=== PATIENT | female | born 1945 | race Caucasian/White ===

== ENCOUNTER 2019-07-13 14:34 | Inpatient (IN) | payer MEDICARE ==
[2019-07-13] MEDS ORDERED: SODIUM CHLORIDE 0.9% 500 ML 500 ML IV STA (14:58)
[2019-07-13] MEDS ORDERED: IPRATROPIUM-ALBUTEROL 3 ML NEB INHALATION STA (15:01)
--- NOTE | 2019-07-13 15:02 | ED ---
General Adult HPI - General Source: patient, RN notes reviewed Mode of arrival: wheelchair Limitations: no limitations <Zan Alexandre - Last Filed: 07/13/19 17:01> <Hebert Montoya - Last Filed: 07/13/19 17:26> - General Chief complaint: Shortness of Breath Stated complaint: SOB Time Seen by Provider: 07/13/19 14:51 - History of Present Illness Initial comments: This a 73-year-old female presents emergency Department chief complaint of fatigue, shortness of breath. Patient states she just has no energy to get up and move around. She states that she feels short of breath at that time. Patient states at rest she does not feel short of breath she does have underlying COPD. Patient denies any current nausea, vomiting, diarrhea constipation. Denies any melena hematochezia. Patient denies any chest pain, h eadache. Patient states she walked to the bathroom and states that she was so fatigued she could not get up. Patient family has noticed that she is very weak (Zan Alexandre) - Related Data Allergies Allergy/AdvReac Type Severity Reaction Status Date / Time No Known Allergies Allergy Verified 07/13/19 14:48 Review of Systems ROS Other: All systems not noted in ROS Statement are negative. <Zan Alexandre - Last Filed: 07/13/19 17:01> ROS Other: All systems not noted in ROS Statement are negative. <Hebert Montoya - Last Filed: 07/13/19 17:26> ROS Statement: Those systems with pertinent positive or pertinent negative responses have been documented in the HPI. Past Medical History Past Medical History: COPD History of Any Multi-Drug Resistant Organisms: None Reported Additional Past Surgical History / Comment(s): part of right lung removed Past Psychological History: No Psychological Hx Reported Smoking Status: Never smoker Past Alcohol Use History: Occasional Past Drug Use History: None Reported <Zan Alexandre - Last Filed: 07/13/19 17:01> General Exam Limitations: no limitations General appearance: alert, in no apparent distress Head exam: Present: atraumatic, normocephalic, normal inspection Eye exam: Present: normal appearance, PERRL, EOMI. Absent: scleral icterus, conjunctival injection, periorbital swelling ENT exam: Present: normal exam, normal oropharynx, mucous membranes moist Neck exam: Present: normal inspection, full ROM. Absent: tenderness, meningismus, lymphadenopathy Respiratory exam: Present: normal lung sounds bilaterally. Absent: respiratory distress, wheezes, rales, rhonchi, stridor Cardiovascular Exam: Present: normal rhythm, tachycardia, normal heart sounds. Absent: systolic murmur, diastolic murmur, rubs, gallop, clicks GI/Abdominal exam: Present: soft, normal bowel sounds. Absent: distended, tende rness, guarding, rebound, rigid Neurological exam: Present: alert, oriented X3, CN II-XII intact Skin exam: Present: warm, dry, intact, normal color. Absent: rash <Zan Alexandre - Last Filed: 07/13/19 17:01> Course <Hebert Montoya - Last Filed: 07/13/19 17:26> Vital Signs 07/13/19 07/13/19 07/13/19 14:44 15:48 15:50 Temperature 98 F Pulse Rate 104 H 82 Respiratory 22 24 Rate Blood Pressure 106/59 O2 Sat by Pulse 77 L Oximetry 07/13/19 07/13/19 16:02 16:03 Temperature Pulse Rate 71 80 Respiratory 18 Rate Blood Pressure 122/91 O2 Sat by Pulse 100 Oximetry - Reevaluation(s) Reevaluation #1: 07/13/19 17:26 PA supervision: I proceeded [id number] evaluation the patient. She does present with complaints of shortness of breath he does demonstrate markedly diminished breath sounds. After treatment she did not recover well. She did demonstrate exertional dyspnea. She will be admitted the case is discussed with Dr. Larios. (Hebert Montoya) EKG Findings - EKG Comments: EKG Findings:: EKG performed at 15:01 A. fib rate of 75 QRS 78 QT/QTC 352/393 <Zan Alexandre - Last Filed: 07/13/19 17:01> Medical Decision Making - Lab Data Result diagrams: 07/13/19 15:50 07/13/19 15:50 <Zan Alexandre - Last Filed: 07/13/19 17:01> - Lab Data Result diagrams: 07/13/19 15:50 07/13/19 15:50 <Hebert Montoya - Last Filed: 07/13/19 17:26> - Medical Decision Making 73-year-old female presents from for dyspnea. Patient and worsening dyspnea with a history of lung disease. Patient is on chronic O2 has been hypoxic at home. Patient did have mild improvement with treatments in emergency from along with increase oxygen supplementation. Patient will be admitted for COPD exacerbation, hypoxia, exertional dyspnea (Zan Alexandre) - Lab Data Lab Results 07/13/19 07/13/19 07/13/19 Range/Units 15:49 15:50 15:50 WBC 12.0 H (3.8-10.6) k/uL RBC 4.65 (3.80-5.40) m/uL Hgb 13.8 (11.4-16.0) gm/dL Hct 42.8 (34.0-46.0) % MCV 92.1 (80.0-100.0) fL MCH 29.6 (25.0-35.0) pg MCHC 32.2 (31.0-37.0) g/dL RDW 13.5 (11.5-15.5) % Plt Count 221 (150-450) k/uL Neutrophils % 82 % Lymphocytes % 11 % Monocytes % 3 % Eosinophils % 2 % Basophils % 1 % Neutrophils # 9.9 H (1.3-7.7) k/uL Lymphocytes # 1.3 (1.0-4.8) k/uL Monocytes # 0.4 (0-1.0) k/uL Eosinophils # 0.2 (0-0.7) k/uL Basophils # 0.2 (0-0.2) k/uL Sodium 140 (137-145) mmol/L Potassium 4.8 (3.5-5.1) mmol/L Chloride 97 L (98-107) mmol/L Carbon Dioxide 40 H (22-30) mmol/L Anion Gap 3 mmol/L BUN 34 H (7-17) mg/dL Creatinine 0.82 (0.52-1.04) mg/dL Est GFR (CKD-EPI)AfAm 82 (>60 ml/min/1.73 sqM) Est GFR (CKD-EPI)NonAf 71 (>60 ml/min/1.73 sqM) Glucose 116 H (74-99) mg/dL Calcium 9.4 (8.4-10.2) mg/dL Magnesium 2.1 (1.6-2.3) mg/dL Total Bilirubin 1.1 (0.2-1.3) mg/dL AST 25 (14-36) U/L ALT 14 (9-52) U/L Alkaline Phosphatase 58 (38-126) U/L Troponin I (0.000-0.034) ng/mL NT-Pro-B Natriuret Pep pg/mL Total Protein 6.6 (6.3-8.2) g/dL Albumin 3.7 (3.5-5.0) g/dL Blood Type A Positive Blood Type Recheck No Previous Record Bld Type Recheck Status CABO Indicated Antibody Screen NEGATIVE Spec Expiration Date 07/16/2019 - 235807/13/19 07/13/19 Range/Units 15:50 15:50 WBC (3.8-10.6) k/uL RBC (3.80-5.40) m/uL Hgb (11.4-16.0) gm/dL Hct (34.0-46.0) % MCV (80.0-100.0) fL MCH (25.0-35.0) pg MCHC (31.0-37.0) g/dL RDW (11.5-15.5) % Plt Count (150-450) k/uL Neutrophils % % Lymphocytes % % Monocytes % % Eosinophils % % Basophils % % Neutrophils # (1.3-7.7) k/uL Lymphocytes # (1.0-4.8) k/uL Monocytes # (0-1.0) k/uL Eosinophils # (0-0.7) k/uL Basophils # (0-0.2) k/uL Sodium (137-145) mmol/L Potassium (3.5-5.1) mmol/L Chloride (98-107) mmol/L Carbon Dioxide (22-30) mmol/L Anion Gap mmol/L BUN (7-17) mg/dL Creatinine (0.52-1.04) mg/dL Est GFR (CKD-EPI)AfAm (>60 ml/min/1.73 sqM) Est GFR (CKD-EPI)NonAf (>60 ml/min/1.73 sqM) Glucose (74-99) mg/dL Calcium (8.4-10.2) mg/dL Magnesium (1.6-2.3) mg/dL Total Bilirubin (0.2-1.3) mg/dL AST (14-36) U/L ALT (9-52) U/L Alkaline Phosphatase (38-126) U/L Troponin I <0.012 (0.000-0.034) ng/mL NT-Pro-B Natriuret Pep 3620 pg/mL Total Protein (6.3-8.2) g/dL Albumin (3.5-5.0) g/dL Blood Type Blood Type Recheck Bld Type Recheck Status Antibody Screen Spec Expiration Date Disposition <Zan Alexandre - Last Filed: 07/13/19 17:01> <Hebert Montoya - Last Filed: 07/13/19 17:26> Clinical Impression: Hypoxic, COPD exacerbation, Exertional dyspnea Disposition: ADMITTED IP TO THIS HOSP Condition: Fair Referrals: Kimberly Molina MD [Primary Care Provider] - 1-2 days
[2019-07-13 15:57] LABS: Basophils # (A) 0.2 k/uL (0-0.2); Basophils % (A) 1 %; Eosinophils # (A) 0.2 k/uL (0-0.7); Eosinophils % (A) 2 %; HCT 42.8 % (34.0-46.0); HGB 13.8 gm/dL (11.4-16.0); Lymphocytes # (A) 1.3 k/uL (1.0-4.8); Lymphocytes % (A) 11 %; MCH 29.6 pg (25.0-35.0); MCHC 32.2 g/dL (31.0-37.0); MCV 92.1 fL (80.0-100.0); Mean Platelet Volume 6.4; Monocytes # (A) 0.4 k/uL (0-1.0); Monocytes % (A) 3 %; Neutrophils # (A) 9.9 k/uL (1.3-7.7); Neutrophils % (A) 82 %; Platelet Count 221 k/uL (150-450); RBC 4.65 m/uL (3.80-5.40); RDW 13.5 % (11.5-15.5)
[2019-07-13 16:06] LABS: Partial Thromboplastin Time 24.2 sec (22.0-30.0); Prothrombin Time 10.5 sec (9.0-12.0)
[2019-07-13 16:08] LABS: Albumin 3.7 g/dL (3.5-5.0); Calcium 9.4 mg/dL (8.4-10.2); Magnesium 2.1 mg/dL (1.6-2.3); Potassium 4.8 mmol/L (3.5-5.1); Total Bilirubin 1.1 mg/dL (0.2-1.3); Total Protein 6.6 g/dL (6.3-8.2)
--- NOTE | 2019-07-13 16:56 | XR ---
EXAMINATION TYPE: XR chest 2V DATE OF EXAM: 07/13/2019 COMPARISON: 01/24/2018 HISTORY: Short of breath TECHNIQUE: Frontal and lateral views of the chest are obtained. FINDINGS: Heart is enlarged. There is large right pulmonary hilum that could relate to enlarged pulm onary artery. Unchanged. There is slight coarsening of interstitial markings. There is previous right thoracotomy. There are chest leads. There is no definite pleural effusion. IMPRESSION: Mild cardiomegaly. Enlarged right pulmonary hilum unchanged and could relate to large pu lmonary artery or bronchial adenopathy unchanged. Pulmonary interstitial fibrosis. Chest unchanged co mpared to old exam.
[2019-07-13] MEDS: IPRATROPIUM-ALBUTEROL 3 ML NEB INHALATION SCH (19:36)
[2019-07-13] MEDS: APIXABAN 5 MG TAB PO SCH (20:05)
[2019-07-13] MEDS: methylPREDNISolone SOD SUCCI 125 MG/2 ML VIAL IV SCH (20:05)
[2019-07-13] MEDS ORDERED: ACETAMINOPHEN TAB 500 MG TAB PO PRN (20:20)
[2019-07-13] MEDS ORDERED: HYDROcodone/APAP 5-325MG 1 EACH TAB PO PRN (20:20)
[2019-07-13] MEDS ORDERED: ALPRAZolam 0.25 MG TAB PO PRN (20:20)
[2019-07-13] MEDS ORDERED: HYDROmorphone 0.5 MG/0.5 ML SYRINGE IVP PRN (20:20)
[2019-07-13] MEDS: INSULIN ASPART (NovoLOG) 100 UNIT/ML VIAL SQ SCH (21:29)
[2019-07-13 21:46] LABS: Glucose,Whole Blood 114 mg/dL (75-99)
[2019-07-13] MEDS: AZITHROMYCIN 500 MG in SODIUM CHLORIDE 0.9% 250 ML IVPB SCH (22:14)
[2019-07-14] MEDS: methylPREDNISolone SOD SUCCI 125 MG/2 ML VIAL IV SCH ×2 (01:03→05:58)
--- NOTE | 2019-07-14 01:07 | HP ---
HISTORY AND PHYSICAL DATE OF SERVICE: 07/13/2019 CHIEF COMPLAINT: Shortness of breath. HISTORY OF PRESENT ILLNESS: This 73-year-old woman with a past medical history of multiple medical problems including COPD and no other medical issues being followed by Dr. Molina and Dr. Welch in the outpatient setting was complaining of shortness of breath which is increasing for the past several days. Patient has some difficulty in ambulated, no energy to get up and move around. The patient feels short of breath all the time and the patient came to [facility] and was admitted for further evaluation and treatment. Chest x- ray which was done in the ER showed some mild cardiomegaly, enlarged right pulmonary hilum, unchanged, infiltrative large pulmonary artery or bronchial adenopathy unchanged and pulmonary interstitial fibrosis also noted. There is no history of fever, rigors or chills. No history of headache, loss of consciousness or seizures at this time. PAST MEDICAL HISTORY: History of chronic obstructive pulmonary disease. Hypertension. Atrial fibrillation. MEDICATIONS: 1. Losartan hydrochlorothiazide 50/12.5 mg p.o. daily. 2. Eliquis 5 mg p.o. b.i.d. 3. ProAir 1-2 puffs q.6h p.r.n. 4. Ventolin 2.5 mg p.o. t.i.d. ALLERGIES: None. FAMILY HISTORY: No history of heart disease or strokes in the family. SOCIAL HISTORY: No history of smoking. No history of alcohol. REVIEW OF SYSTEMS: ENT: No diminished hearing. No diminished vision. CARDIOVASCULAR as mentioned earlier. RESPIRATORY: As mentioned earlier. GI no nausea or vomiting. no dysuria or hematuria. NERVOUS SYSTEM: No numbness or weakness. ALLERGY/IMMUNOLOGY: No asthma or hayfever. MUSCULOSKELETAL as mentioned earlier. HEMATOLOGY/ONCOLOGY: No history of anemia. ENDOCRINE: No history of diabetes or hypothyroidism. CONSTITUTIONAL: As mentioned earlier DERMATOLOGY: Negative. RHEUMATOLOGY: Negative. PSYCHIATRY: As mentioned earlier. PHYSICAL EXAMINATION: Alert and oriented x3. Pulse is 78. Blood pressure 120/88, respiration 18, temp is normal. Pulse ox 94% on 4 L. HEENT: Conjunctivae normal. NECK: No JVD. CARDIOVASCULAR SYSTEM: S1, S2 muffled. RESPIRATION: Breath sounds diminished in the bases. Bilateral scattered rhonchi and crackles. Expiratory wheezing also present. Breathing efforts are markedly increased. ABDOMEN: Soft, obese, nontender. No mass palpable. LEGS: Minimal bilateral leg edema. NERVOUS SYSTEM: Higher functions as mentioned earlier. Moves all 4 limbs. No focal motor or sensory deficits. LYMPHATICS: No lymph nodes palpable in the neck, axilla or groin. SKIN: No ulcers, no rashes. No bleeding. JOINTS: No active deforming arthropathy. LABS: WBC 12, hemoglobin 13.2. Sodium 140, potassium 4.8. Glucose 116. ASSESSMENT: 1. Chronic obstructive pulmonary disease acute exacerbation with acute purulent tracheobronchitis. 2. Rule out congestive heart failure or cor pulmonale. 3. Hypertension. 4. Atrial fibrillation, rate controlled. 5. Prominent right hilum or lymphadenopathy. 6. Increased WBC. 7. Possible interstitial lung, pulmonary fibrosis. 8. Elevated CO2. 9. Obesity with body mass index of 45. 10.FULL CODE. RECOMMENDATIONS AND DISCUSSION: This 73-year-old woman who presented with multiple medical issues, we will monitor the patient closely, continue the current medications, management and symptomatic treatment. We will continue to monitor. Otherwise, I would recommend monitor closely. Bronchodilators and steroids. Monitor blood sugars closely. Empiric antibiotics. Pulmonary consultation. I would also recommend a 2D echo with Doppler also. The BNP is slightly elevated up to 3620. Further recommendations to follow. A chest x-ray personally reviewed and findings are as listed above. Further recommendations to follow. MMDEANNEL / YVROSE: [id number] /
[2019-07-14 07:28] LABS: Glucose,Whole Blood 153 mg/dL (75-99)
[2019-07-14] MEDS: BUDESONIDE 1 MG/2 ML NEBU INHALATION SCH ×2 (07:33→21:13)
[2019-07-14] MEDS: IPRATROPIUM-ALBUTEROL 3 ML NEB INHALATION SCH ×4 (07:33→21:13)
[2019-07-14] MEDS: FORMOTEROL FUMARATE 20 MCG/2 ML NEBU INHALATION SCH ×2 (07:33→21:13)
[2019-07-14] MEDS: LOSARTAN-HCTZ 50-12.5 MG 1 EACH TAB PO SCH (08:05)
[2019-07-14] MEDS: INSULIN ASPART (NovoLOG) 100 UNIT/ML VIAL SQ SCH ×4 (08:05→21:23)
[2019-07-14] MEDS: PANTOPRAZOLE 40 MG TABLET PO SCH (08:05)
[2019-07-14] MEDS: APIXABAN 5 MG TAB PO SCH ×2 (08:05→20:51)
[2019-07-14 08:53] LABS: Basophils % (A) 0 %; Eosinophils # (A) 0.1 k/uL (0-0.7); Eosinophils % (A) 1 %; HCT 40.6 % (34.0-46.0); HGB 13.5 gm/dL (11.4-16.0); Lymphocytes # (A) 0.8 k/uL (1.0-4.8); Lymphocytes % (A) 9 %; MCH 31.2 pg (25.0-35.0); MCHC 33.3 g/dL (31.0-37.0); MCV 93.6 fL (80.0-100.0); Mean Platelet Volume 6.7; Monocytes # (A) 0.1 k/uL (0-1.0); Monocytes % (A) 1 %; Neutrophils # (A) 7.8 k/uL (1.3-7.7); Neutrophils % (A) 89 %; Platelet Count 209 k/uL (150-450); RBC 4.34 m/uL (3.80-5.40); RDW 14.4 % (11.5-15.5); WBC 8.8 k/uL (3.8-10.6)
[2019-07-14 09:01] LABS: Calcium 9.1 mg/dL (8.4-10.2)
[2019-07-14 11:52] LABS: Glucose,Whole Blood 278 mg/dL (75-99)
[2019-07-14 12:17] LABS: Appearance,Urine Cloudy (Clear); Bacteria,Urine Occasional /hpf; Bilirubin,Urine Negative (Negative); Blood,Urine Negative (Negative); Color,Urine Yellow; Glucose,Urine (UA) 4+ (Negative); Ketones,Urine Negative (Negative); Leukocyte Esterase,Urine Negative (Negative); Mucus,Urine Rare /hpf; Nitrite,Urine Negative (Negative); PH, Urine 5.5 (5.0-8.0); Protein,Urine Trace (Negative); Specific Gravity,Urine 1.021 (1.001-1.035); Squamous Epithelial Cell,Urine 4 /hpf (0-4); Urobilinogen,Urine <2.0 mg/dL (<2.0); WBC,Urine 2 /hpf (0-5)
--- NOTE | 2019-07-14 13:06 | ECHOF ---
Referral Reason:chf MEASUREMENTS -------- HEIGHT: 132.1 cm WEIGHT: 101.2 kg BP: 139/60 IVSd: 1.1 cm (0.6 - 1.1) LVIDd: 4.2 cm (3.9 - 5.3) LVPWd: 1.1 cm (0.6 - 1.1) EDV(Teich): 76 ml IVSs: 1.4 cm LVIDs: 2.9 cm LVPWs: 1.5 cm %IVS Thck: 27 % ESV(Teich): 32 ml EF(Teich): 59 % %FS: 31 % SV(Teich): 45 ml LA Diam: 4.3 cm (2.7 - 3.8) RVIDd: 3.9 cm (< 3.3) LALs A4C: 5.8 cm LAAs A4C: 20.3 cm LAESV A-L A4C: 60 ml LAESV MOD A4C: 58 ml LALs A2C: 5.6 cm LAAs A2C: 21.5 cm LAESV A-L A2C: 70 ml LAESV MOD A2C: 66 ml LAESV(A-L): 66 ml LAESV Index (A-L): 37.31 ml/m Ao Diam: 2.7 cm (2.0 - 3.7) LA Diam: 4.0 cm (2.7 - 3.8) AV Cusp: 2.0 cm (1.5 - 2.6) EPSS: 0.4 cm MV E Shaun: 1.09 m/s MV DecT: 178 ms MV Dec Brown: 6.1 m/s MV A Shaun: 0.02 m/s MV E/A Ratio: 69.65 MV PHT: 52 ms MV DecT: 190 ms TR Vmax: 3.46 m/s TR maxP.82 mmHg RAP: 5.00 mmHg RVSP: 52.82 mmHg MV EF SLOPE: 94.03 mm/s (70 - 150) MV EXCURSION: 18.74 mm (> 18.000) FINDINGS -------- Atrial fibrillation. This was a technically adequate study. The left ventricular size is normal. There is mild concentric left ventricular hypertrophy. Overa left ventricular systolic function is normal with, an EF between 55 - 60 %. Left ventricular marija limg pressure cannot be estimated due to Atrial fibrillation. The right ventricle is moderately enlarged. The left atrium is moderately dilated. LA is moderately dilated 34-39 ml/m2 The right atrial size is normal. The aortic valve is trileaflet, and appears structurally normal. No aortic stenosis or regurgitation. Mild mitral annular calcification present. Mild mitral regurgitation is present. Moderate tricuspid regurgitation present. There is moderate pulmonary hypertension. The right moises tricular systolic pressure, as measured by Doppler, is 52.82mmHg. Trace/mild (physiologic) pulmonic regurgitation. The aortic root size is normal. There is no pericardial effusion. CONCLUSIONS -------- 1. Atrial fibrillation. 2. This was a technically adequate study. 3. The left ventricular size is normal. 4. There is mild concentric left ventricular hypertrophy. 5. Overall left ventricular systolic function is normal with, an EF between 55 - 60 %. 6. The right ventricle is moderately enlarged. 7. The left atrium is moderately dilated. 8. LA is moderately dilated 34-39 ml/m2 9. The right atrial size is normal. 10. The aortic valve is trileaflet, and appears structurally normal. No aortic stenosis or regurgitat ion. 11. Mild mitral annular calcification present. 12. Mild mitral regurgitation is present. 13. Moderate tricuspid regurgitation present. 14. There is moderate pulmonary hypertension. 15. The right ventricular systolic pressure, as measured by Doppler, is 52.82mmHg. 16. Trace/mild (physiologic) pulmonic regurgitation. 17. The aortic root size is normal. 18. There is no pericardial effusion. EPITAXIAL REACTOR OPERATOR: Aimee Jc RDCS
--- NOTE | 2019-07-14 14:09 | P.CNPUL ---
History of Present Illness Consult date: 07/14/19 Reason for consult: dyspnea History of present illness: this is a 73-year-old female with history of severe COPD, FEV1 is 37%, FEV1/FVC is 58%,patient is O2 dependent but not prednisone dependent, she is primarily a patient of Dr. Molina. The patient apparently was having increased fatigue over the past 1 week. The patient was having more shortness of breath and she has been failing also weak. No fever. No chills. No chest pain. No hemoptysis. No pleurisy. No worsening in the lower extremity edema. Apparently her OxyContin concentrated was running at one and half liters and she typically uses 2 L. At time of admission she was hypoxic with pulse ox of 77%. Currently is on 2 L and her pulse ox above 92%. She is breathing comfortably for now. On examination she has diminished breath sounds bilaterally and there is no active bronchospasm wheezing. Overnight the patient received a combination of Rocephin and Zithromax and the patient was also treated with IV Solu-Medrol. The patient has no altered mentation. No headaches. No focal nodularity deficit. No signs of any TIAs or CVAs. No dystrophic surgeries. No diarrhea. No dehydration. No intravesical volume depletion. Review of Systems Constitutional: Denies weight loss, Feels generally tired most of the time and weak. Cardiovascular: Denies palpitations, denied chest pain or chest pressure, denies any edema.Patient has mostly symptoms of orthopnea cannot sleep flat. GI: Denies nausea vomiting abdominal pain diarrhea or constipation. Genitourinary: Denies dysuria, frequency, or urgency. Neurologic: Denies weakness, confusion, dizziness, or numbness. Musculoskeletal: Denies weakness arthralgia or myalgia Skin: Denies any skin lesions or rashes. Endocrine: No polydipsia, no polyuria, no heat or cold sensitivity. Pulmonary: Please refer to HPI,This is nonexertional no cough no wheezing no fever no chills no hemoptysis no chest pain. Hematologic: No clotting, no bruising, no bleeding. Psychiatric: No symptoms of depression. Past Medical History Past Medical History: Atrial Fibrillation, COPD, Hypertension History of Any Multi-Drug Resistant Organisms: None Reported Additional Past Surgical History / Comment(s): part of right lung removed Past Psychological History: No Psychological Hx Reported Smoking Status: Never smoker Past Alcohol Use History: Occasional Past Drug Use History: None Reported Medications and Allergies Home Medications Medication Instructions Recorded Confirmed Type Albuterol Nebulized [Ventolin 2.5 mg INHALATION RT-TID 07/13/19 07/13/19 History Nebulized] Albuterol Sulfate [Proair Hfa] 1 - 2 puff INHALATION RT-Q6H PRN 07/13/1907/13 History Apixaban [Eliquis] 5 mg PO BID 07/13/19 07/13/19 History Losartan-Hctz 50-12.5 mg [Hyzaar 1 tab PO DAILY 07/13/19 07/13/19 History 50-12.5] Allergies Allergy/AdvReac Type Severity Reaction Status Date / Time No Known Allergies Allergy Verified 07/13/19 14:48 Physical Exam Vitals: Vital Signs Temp Pulse Pulse Resp BP BP Pulse Ox 07/14/19 07:55 88 07/14/19 07:48 88 07/14/19 07:47 88 07/14/19 07:33 88 07/14/19 04:45 97.8 F 93 18 129/81 93 L 07/13/19 20:17 97.4 F L 85 18 113/71 97 07/13/19 19:45 80 07/13/19 19:37 80 07/13/19 17:42 78 18 110/80 95 07/13/19 16:03 80 07/13/19 16:02 71 18 122/91 100 07/13/19 15:50 24 07/13/19 15:48 82 07/13/19 14:44 98 F 104 H 22 106/59 77 L Intake and Output 07/13/19 07/14/19 07/14/19 22:59 06:59 14:59 Other: Voiding Method Incontinent # Voids 2 1 1 Physical exam revealed a 73-year-old female in no distress. HEENT: Anicteric sclerae, pink and moist conjunctivae. Extraocular movements intact, pupils are reactive to light they are round and equal. External in spection of ears and nose showed normal mucosa. Oral mucosa, soft and hard palate tongue and posterior pharynx are intact. Neck: Supple no neck masses, no JVD, no thyroid enlargement, no adenopathy. Lungs: Symmetrical expansion,diminished breath sounds at the bases, No crackles, no rhonchi, no wheezes. CVS: Regular rate and rhythm, normal S1 and S2, no gallops, no murmur, no rubs. Abdomen: Soft, nontender, no megaly, no rebound, no guarding, positive bowel sounds. Extremities: No clubbing, no edema, no cyanosis, 2+ pulses in upper and lower extremities. Musculoskeletal: Muscle strength and tone normal. Neurologic: Alert and oriented 3, normal affect, no focal neurologic deficits. Results - Laboratory Findings CBC and BMP: 07/14/19 08:27 07/14/19 08:27 PT/INR, D-dimer PT 10.5 sec (9.0-12.0) 07/13/19 15:50 INR 1.0 (<1.2) 07/13/19 15:50 Abnormal lab findings: Abnormal Labs 07/13/19 07/13/19 07/13/19 15:50 15:50 21:26 WBC 12.0 H Neutrophils # 9.9 H Lymphocytes # Chloride 97 L Carbon Dioxide 40 H BUN 34 H Glucose 116 H POC Glucose (mg/dL) 114 H 07/14/19 07/14/19 07:19 08:27 WBC Neutrophils # 7.8 H Lymphocytes # 0.8 L Chloride Carbon Dioxide BUN Glucose POC Glucose (mg/dL) 153 H - Diagnostic Findings Chest x-ray: image reviewed Assessment and Plan Plan: 1 Acute COPD exacerbation , likely suspected and the patient is having some increasing shortness of breath along with generalized fatigue and weakness. Otherwise, there is no other abnormalities identified in her blood work and review of system is negative other than COPD and chronic exertional dyspnea. 2 chronic hypoxemic respiratory failure, and oxygen 2 L per minute nasal cannula 3 chronic obstructive lung disease, severe with an FEV1 of 37% of predicted at baseline 4 benign essential hypertension 5 chronic atrial fibrillation rate controlled and the patient is on long-term and coagulation. 6 hyperlipidemia Plan Agree on the current management. Check a UA. Check thyroid function tests. This continued IV Solu Medrol start the patient prednisone burst taper. Continue same antibiotic coverage. Chest x-ray was reviewed. Outpatient medication were new. We'll continue to follow. Needs oxygen at 2 L per minute nasal cannula. Pulse ox is 93% on 2 L about 2 by nasal cannula.
[2019-07-14 16:46] LABS: Glucose,Whole Blood 138 mg/dL (75-99)
--- NOTE | 2019-07-14 18:09 | CT ---
EXAMINATION TYPE: CT chest wo con DATE OF EXAM: 07/14/2019 COMPARISON: None HISTORY: COPD CT DLP: 492.8 mGycm. Automated Exposure Control for Dose Reduction was Utilized. TECHNIQUE: CT scan of the thorax is performed without IV contrast. FINDINGS: Exam limited by lack of contrast. There is increased density in the anterior right upper lobe related to apparent scarring and atelectasis. There is significant narrowing of right upper lobe bronchus. I see no definite mass at the right pulmonary hilum. There are large central pulmonary arteries. Heart is enlarged. There is no pericardial effusion. There is a ring around the gastric fundus related to bariatric surgery. There is no pleural effusion. There is mild linear density at the lung bases. Ther e is no pleural effusion. IMPRESSION: Right upper lobe anterior atelectasis with right upper lobe bronchial stenosis. No defini te hilar mass seen. Large arteries consistent with pulmonary hypertension. Cardiomegaly. Patchy bilat eral lower lung field pulmonary scarring and subsegmental atelectasis.
[2019-07-14 21:18] LABS: Glucose,Whole Blood 119 mg/dL (75-99)
--- NOTE | 2019-07-14 21:34 | PN ---
PROGRESS NOTE DATE OF SERVICE: 07/14/2019 This 73-year-old woman is admitted with CHF, acute exacerbation, is also being evaluated for the possibility of any CHF. The patient underwent a 2D echo with Doppler which showed ejection fraction about 50-60 percent and moderately dilated LA. Otherwise moderate tricuspid regurgitation was also noted with moderate pulmonary hypertension. The patient was in atrial fibrillation. No pericardial effusion was noted. Multiple consultants following the patient closely including cardiology and pulmonology. FEV1 was found to be 37% of predicted baseline. PAST MEDICAL HISTORY: Reviewed. REVIEW OF SYSTEMS: Cardiovascular system: As mentioned earlier. RESPIRATORY: As mentioned earlier. GI no nausea or vomiting. no dysuria. Nervous system: No numbness or weakness. CURRENT MEDICATIONS: Reviewed and include: 1. Tylenol 500 mg q.6h p.r.n. 2. [place] 5 mg q.6h p.r.n. 3. DuoNeb q.i.d. and p.r.n. 4. Eliquis. 5. Xanax 0.25 daily. 6. Zithromax 500 mg IV daily. 7. Pulmicort 1 mg b.i.d. 8. Rocephin. 9. Perforomist. 10.Dilaudid. 11.NovoLog. 12.Prednisone. PHYSICAL EXAM: Patient is alert, oriented x3. Pulse is 82. Blood pressure 116/57, respiration 18, temperature 97.3, pulse ox 99% on 3 L. HEENT: Conjunctivae normal. NECK: No JVD. CARDIOVASCULAR: S1, S2 muffled. RESPIRATORY: Breath sounds diminished in the bases. Bilateral scattered rhonchi and crackles. Expiratory wheezing also present. ABDOMEN: Soft, nontender. No mass palpable. LEGS: No edema. No swelling. NERVOUS SYSTEM: Higher functions as mentioned earlier. Moves all 4 limbs. No focal motor or sensory deficits. LYMPHATICS: No lymph nodes palpable in the neck, axilla or groin. SKIN: No ulcers, no rashes and no bleeding. JOINTS: No active deforming arthropathy. LABS: CBC within normal limits. Sodium 142. Potassium 4. Accu-Cheks 278, 138. UA noted. Influenza is negative. The chest x-ray reviewed personally by me showed mild cardiomegaly and large right pulmonary hilum. ASSESSMENT: 1. Chronic obstructive pulmonary disease acute exacerbation, acute purulent tracheobronchitis. 2. Enlarged right pulmonary hilum. 3. Pulmonary hypertension. 4. Dilated LA in the 2D echo. 5. Hypertension. 6. Atrial fibrillation. 7. Increased WBC. 8. Rule out pulmonary fibrosis. 9. Elevated CO2. 10.Obesity with body mass index of 40.5. RECOMMENDATIONS AND DISCUSSION: In this 73-year-old woman who presented with multiple medical issues, we will monitor the patient closely, continue the current medications, management and symptomatic treatment. Otherwise, at this time, I recommend to continue to monitor. Monitor blood sugars closely. Otherwise, guarded prognosis because of multiple complex medical issues. Further recommendations to follow. See orders for details and closely follow with Dr. Bourne. Also recommend a CT scan of the chest also to complete the workup. MMODL / IJN: [id number] /
[2019-07-14] MEDS: AZITHROMYCIN 500 MG in SODIUM CHLORIDE 0.9% 250 ML IVPB SCH (21:43)
[2019-07-15 07:17] VITALS: BP 133/81; RESP 14; TEMP 97.6
[2019-07-15] MEDS: INSULIN ASPART (NovoLOG) 100 UNIT/ML VIAL SQ SCH ×2 (07:17→11:39)
[2019-07-15] MEDS: LOSARTAN-HCTZ 50-12.5 MG 1 EACH TAB PO SCH (07:18)
[2019-07-15] MEDS: PANTOPRAZOLE 40 MG TABLET PO SCH (07:18)
[2019-07-15] MEDS: APIXABAN 5 MG TAB PO SCH (07:18)
[2019-07-15 07:27] LABS: Glucose,Whole Blood 86 mg/dL (75-99)
[2019-07-15 08:48] LABS: Basophils % (A) 0 %; Eosinophils # (A) 0.1 k/uL (0-0.7); Eosinophils % (A) 1 %; HCT 38.5 % (34.0-46.0); HGB 12.4 gm/dL (11.4-16.0); Lymphocytes # (A) 1.5 k/uL (1.0-4.8); Lymphocytes % (A) 14 %; MCHC 32.2 g/dL (31.0-37.0); MCV 93.2 fL (80.0-100.0); Mean Platelet Volume 6.8; Monocytes # (A) 0.4 k/uL (0-1.0); Monocytes % (A) 4 %; Neutrophils # (A) 8.8 k/uL (1.3-7.7); Neutrophils % (A) 81 %; Platelet Count 243 k/uL (150-450); RBC 4.13 m/uL (3.80-5.40)
[2019-07-15 08:57] LABS: Calcium 8.9 mg/dL (8.4-10.2); Potassium 3.6 mmol/L (3.5-5.1)
[2019-07-15] MEDS ORDERED: predniSONE 20 MG TAB PO SCH (09:00)
[2019-07-15] MEDS: FORMOTEROL FUMARATE 20 MCG/2 ML NEBU INHALATION SCH (09:22)
[2019-07-15] MEDS: IPRATROPIUM-ALBUTEROL 3 ML NEB INHALATION SCH ×2 (09:22→13:09)
[2019-07-15] MEDS: BUDESONIDE 1 MG/2 ML NEBU INHALATION SCH (09:22)
[2019-07-15 09:51] VITALS: PULSE 80
--- NOTE | 2019-07-15 13:17 | P.PN ---
Subjective Progress Note Date: 07/15/19 this is a 73-year-old female with history of severe COPD, FEV1 is 37%, FEV1/FVC is 58%,patient is O2 dependent but not prednisone dependent, she is primarily a patient of Dr. Molina. The patient apparently was having increased fatigue over the past 1 week. The patient was having more shortness of breath and she has been failing also weak. No fever. No chills. No chest pain. No hemoptysis. No pleurisy. No worsening in the lower extremity edema. Apparently her OxyContin concentrated was running at one and half liters and she typically uses 2 L. At time of admission she was hypoxic with pulse ox of 77%. Currently is on 2 L and her pulse ox above 92%. She is breathing comfortably for now. On examination she has diminished breath sounds bilaterally and there is no active bronchospasm wheezing. Overnight the patient received a combination of Rocephin and Zithromax and the patient was also treated with IV Solu-Medrol. The patient has no altered mentation. No headaches. No focal nodularity deficit. No signs of any TIAs or CVAs. No dystrophic surgeries. No diarrhea. No dehydration. No intravesical volume depletion. On 07/15/2019 the patient is doing well. Receiving bronchodilators. Receiving steroids. No nausea or vomiting. No chest pain. No swelling lower extremiti es. UA was negative. Hemoglobin stable at 12.4. No significant leukocytosis. Objective - Vital Signs Vital signs: Vital Signs Temp 97.6 F 07/15/19 07:00 Pulse 80 07/15/19 09:51 Resp 14 07/15/19 07:00 BP 133/81 07/15/19 07:00 Pulse Ox 98 07/15/19 07:00 Intake & Output 07/14/19 07/15/19 07/15/19 18:59 06:59 18:59 Intake Total 200 Balance 200 Intake: Oral 200 Other: Voiding Method Incontinent Incontinent Incontinent # Voids 4 4 - Exam Appearance, comfortable calm and comfortable and there is no acute respiratory distress HEENT: Anicteric sclerae, pink and moist conjunctivae. Extraocular movements intact, pupils are reactive to light they are round and equal. External inspection of ears and nose showed normal mucosa. Oral mucosa, soft and hard palate tongue and posterior pharynx are intact. Neck: Supple no neck masses, no JVD, no thyroid enlargement, no adenopathy. Lungs: Symmetrical expansion,diminished breath sounds at the bases, No crackles, no rhonchi, no wheezes. CVS: Regular rate and rhythm, normal S1 and S2, no gallops, no murmur, no rubs. Abdomen: Soft, nontender, no megaly, no rebound, no guarding, positive bowel sounds. Extremities: No clubbing, no edema, no cyanosis, 2+ pulses in upper and lower e xtremities. Musculoskeletal: Muscle strength and tone normal. Neurologic: Alert and oriented 3, normal affect, no focal neurologic deficits. - Labs CBC & Chem 7: 07/15/19 08:15 07/15/19 08:15 Labs: Abnormal Lab Results - Last 24 Hours (Table) 07/14/19 07/14/19 07/15/19 Range/Units 16:36 21:16 08:15 WBC 11.0 H (3.8-10.6) k/uL Neutrophils # 8.8 H (1.3-7.7) k/uL Chloride (98-107) mmol/L Carbon Dioxide (22-30) mmol/L BUN (7-17) mg/dL POC Glucose (mg/dL) 138 H 119 H (75-99) mg/dL 07/15/19 Range/Units 08:15 WBC (3.8-10.6) k/uL Neutrophils # (1.3-7.7) k/uL Chloride 96 L (98-107) mmol/L Carbon Dioxide 40 H (22-30) mmol/L BUN 33 H (7-17) mg/dL POC Glucose (mg/dL) (75-99) mg/dL Microbiology - Last 24 Hours (Table) 07/14/19 11:50 Urine Culture - Preliminary Urine,Clean Catch Assessment and Plan Plan: 1 Acute COPD exacerbation , likely suspected and the patient is having some increasing shortness of breath along with generalized fatigue and weakness. Otherwise, there is no other abnormalities identified in her blood work and review of system is negative other than COPD and chronic exertional dyspnea. The patient is clinically stable. The patient is improved. No new complaints. 2 chronic hypoxemic respiratory failure, and oxygen 2 L per minute nasal cannula 3 chronic obstructive lung disease, severe with an FEV1 of 37% of predicted at [facility] 4 benign essential hypertension 5 chronic atrial fibrillation rate controlled and the patient is on long-term and coagulation. 6 hyperlipidemia Plan Agree on the current management. No additional recommendations from the pulmonary standpoint
[2019-07-15] MEDS ORDERED: AZITHROMYCIN 500 MG TAB PO SCH (21:00)
--- NOTE | 2019-07-16 07:16 | DS ---
DISCHARGE SUMMARY DATE OF SERVICE: 07/15/2019 FINAL DIAGNOSES: 1. Chronic obstructive pulmonary disease exacerbation with acute purulent tracheobronchitis. 2. Right upper lobe anterior atelectasis with right upper lobe bronchial stenosis, possibly in the CAT scan. 3. Enlarged pulmonary hilum in the chest x-ray secondary to pulmonary hypertension. 4. Dilated LA in the 2D echo. 5. Hypertension. 6. Atrial fibrillation, chronic. 7. Increased WBC. 8. Elevated CO2. 9. Obesity, body mass index of 40.5. 10.Patchy bilateral lower lung field pulmonary scarring and subsequent atelectasis in the CAT scan. DISCHARGE DISPOSITION: The patient will be discharged in a stable condition with guarded prognosis. HISTORY OF PRESENT ILLNESS: This is a 73-year-old woman with the past medical history of COPD exacerbation. Patient treated symptomatically. Patient also had a prominent right hilum in the chest x-ray. CAT scan showed multiple findings. As recommended, close outpatient followup. Dr. Bourne saw the patient and recommended the patient could be discharged. The patient follows with Dr. Molina. On exam, vitals are stable. CARDIOVASCULAR: S1, S2. ABDOMEN: Soft. NERVOUS SYSTEM: No focal deficits. DISCHARGE INSTRUCTIONS/MEDICATION: 1. Diet is cardiac. 2. Activity limited until followup. 3. Follow up with Dr. Molina in 1-2 days. 4. Follow up with Dr. Bourne as recommended. MEDICATION: 1. Eliquis 5 mg p.o. b.i.d. 2. Hyzaar 50/12.5 mg p.o. daily. 3. Ceftin 500 mg p.o. b.i.d. for 3 days. 4. DuoNeb q.i.d. 5. Prednisone 40 mg for 3 days, 30 for 3 days, 20 for 3 days, 10 for 3 days. 6. Symbicort 160/4.5 one puff b.i.d. 7. Zithromax 500 daily for 5 days. Once again, the patient will be discharged in stable condition with guarded prognosis. MMODL / IJN: [id number] /
== END 2019-07-15 13:24 | disposition home or self-care (01) | DRG 191 ==
LOC: EC 14:34 → 4MS4W 17:25
PROVIDERS: ADMIT Hospitalist; ATTEND Hospitalist
DX: J44.0 Chronic obstructive pulmonary disease with (acute) lower respiratory infection (principal); Z68.42 Body mass index [BMI] 45.0-49.9, adult; J96.11 Chronic respiratory failure with hypoxia; J98.11 Atelectasis; I27.20 Pulmonary hypertension, unspecified; I48.2 Chronic atrial fibrillation; I07.1 Rheumatic tricuspid insufficiency; J20.9 Acute bronchitis, unspecified; E66.9 Obesity, unspecified; J44.1 Chronic obstructive pulmonary disease with (acute) exacerbation; J98.09 Other diseases of bronchus, not elsewhere classified; R59.1 Generalized enlarged lymph nodes; R32 Unspecified urinary incontinence; E78.5 Hyperlipidemia, unspecified; I10 Essential (primary) hypertension; Z99.81 Dependence on supplemental oxygen; Z79.01 Long term (current) use of anticoagulants; Z79.899 Other long term (current) drug therapy
CPT/HCPCS: 36415; 71046; 71250; 80048; 80053; 81001; 83735; 83880; 84443; 84484; 85025; 85610; 85730; 86850; 86900; 86901; 87086; 87502; 93005; 93306; 94640; 96360; 96361; 99285

== ENCOUNTER 2019-12-08 12:50 | Inpatient (IN) | payer MEDICARE ==
[2019-12-08] MEDS ORDERED: IPRATROPIUM-ALBUTEROL 3 ML NEB INHALATION STA ×3 (13:14→13:20)
--- NOTE | 2019-12-08 13:16 | ED ---
SOB HPI - General Chief Complaint: Shortness of Breath Stated Complaint: Respiratory failure Time Seen by Provider: 12/08/19 12:50 Source: RN/MD, EMS, RN notes reviewed, old records reviewed Mode of arrival: EMS Limitations: no limitations - History of Present Illness Initial Comments: Is a 74-year-old female history of atrial fibrillation and COPD who was brought to [facility] earlier today she was found be unresponsive at home was route there in be in acute respiratory failure she had a pH of 7.1. Patient was intubated with a 7 ET tube. The presumed diagnosis was COPD exacerbation CHF. The physician at the sending facility did call or present the above scenario. Patient was transferred here for higher level of care. Lab work was unavailable and it was subsequently found out that the blood work was hemolyzed. He was transferred here by EMS on a portable ventilator. Patient was given rocuronium as well as Versed for the transfer. MD Complaint: shortness of breath - Related Data Home Medications Medication Instructions Recorded Confirmed Apixaban [Eliquis] 5 mg PO BID 07/13/19 07/13/19 Losartan-Hctz 50-12.5 mg [Hyzaar 1 tab PO DAILY 07/13/19 07/13/19 50-12.5] Previous Rx's Medication Instructions Recorded Azithromycin [Zithromax] 500 mg PO HS #5 tab 07/15/19 Budesonide/Formoterol Fumarate 1 puff IH BID #1 hfa.aer.ad 07/15/19 [Symbicort 160-4.5 Mcg Inhaler] Cefuroxime Axetil [Ceftin] 500 mg PO BID 3 Days #6 tab 07/15/19 Ipratropium-Albuterol Nebulize 3 ml INHALATION RT-QID #120 07/15/19 [Duoneb 0.5 mg-3 mg/3 ml Soln] ampul.neb predniSONE 10 mg PO DIRECTED #30 tab 07/15/19 Allergies Allergy/AdvReac Type Severity Reaction Status Date / Time No Known Allergies Allergy Verified 07/13/19 14:48 Review of Systems ROS Statement: Those systems with pertinent positive or pertinent negative responses have been documented in the HPI. ROS Other: All systems not noted in ROS Statement are negative. Past Medical History Past Medical History: Atrial Fibrillation, COPD, Hypertension History of Any Multi-Drug Resistant Organisms: None Reported Additional Past Surgical History / Comment(s): part of right lung removed Past Psychological History: No Psychological Hx Reported Smoking Status: Never smoker Past Alcohol Use History: Occasional Past Drug Use History: None Reported General Exam - General Exam Comments Initial Comments: This is a well-developed obese female who is unresponsive being ventilated at this time. Limitations: no limitations General appearance: obtunded Head exam: Present: atraumatic, normocephalic, normal inspection Eye exam: Present: normal appearance, PERRL, EOMI. Absent: scleral icterus, conjunctival injection, periorbital swelling ENT exam: Present: other (September 13 oral tracheal tube in place) Neck exam: Present: normal inspection Respiratory exam: Present: decreased breath sounds Cardiovascular Exam: Present: regular rate, normal rhythm, normal heart sounds. Absent: systolic murmur, diastolic murmur, rubs, gallop, clicks GI/Abdominal exam: Present: other (Obese abdomen soft) Rectal exam: Present: deferred Extremities exam: Present: normal inspection, normal capillary refill Back exam: Present: normal inspection Neurological exam: Present: other (Unresponsive) Psychiatric exam: Present: other (Responsive) Skin exam: Present: warm, dry, intact, normal color. Absent: rash Course Vital Signs 12/08/19 12:55 Pulse Rate 81 Respiratory 20 Rate - Reevaluation(s) Reevaluation #1: 12/08/19 13:16 Age was found be hypotensive Dr. Bourne was in the emergency department at that time of her arrival. He did do a right subclavian central line in the patient. Zana pending Reevaluation #2: 12/08/19 13:25 Would be admitted to intensive care unit. Right subclavian catheter placed by Dr. Bourne. Critical Care Time Critical Care Time: Yes Critical Care Time: 31 minutes of critical care time which was initial presentation with history physical labs x-rays multiple reevaluation the patient discussed with the admitting physicians discuss with Dr. Bourne admission orders documentation the above review of old charting Disposition Clinical Impression: Acute respiratory distress syndrome in adult, COPD exacerbation, Acute respiratory failure, Hypotensive episode Disposition: ADMITTED IP TO THIS HOSP Condition: Critical Referrals: Kimberly Molina MD [Primary Care Provider] - 1-2 days
[2019-12-08] MEDS ORDERED: cefTRIAXone IN SWFI 1,000 MG/10 ML SYRINGE IVP STA (13:19)
[2019-12-08] MEDS ORDERED: methylPREDNISolone SOD SUCCI 125 MG/2 ML VIAL IV STA (13:20)
[2019-12-08] MEDS ORDERED: AZITHROMYCIN 500 MG in SODIUM CHLORIDE 0.9% 250 ML IVPB STA (13:20)
[2019-12-08] MEDS ORDERED: PROPOFOL 1,000 MG in EMPTY BAG 1 BAG IV ONE (13:23)
--- NOTE | 2019-12-08 13:28 | XR ---
EXAMINATION TYPE: XR chest 1V confirm line [facility] DATE OF EXAM: 12/08/2019 HISTORY: Patient intubated check placement. REFERENCE: Previous study dated 12/08/2019. FINDINGS: The patient is ET tube has been withdrawn slightly. The tip is now 2.9 cm from the karthikeyan. An NG tube is present and its tip is in the stomach. A right subclavian catheter is been inserted. It s tip is in the superior vena cava. Mildly enlarged. There is some right basilar airspace disease. There is some atelectasis in the left lung base. Pleural spaces are clear. IMPRESSION: 1. CONTINUING CARDIOMEGALY. 2. BIBASILAR AIRSPACE DISEASE EITHER REPRESENTING ATELECTASIS OR PNEUMONIA
--- NOTE | 2019-12-08 13:31 | P.CNPUL ---
History of Present Illness Consult date: 12/08/19 Reason for consult: dyspnea, COPD Chief complaint: Respiratory failure History of present illness: He 4-year-old female patient with known history of severe COPD with an FEV1 of 37% of predicted and the patient is oxygen dependent whereas been out hospital back in July 2019 for an acute COPD exacerbation treated and discharged home. She is obese and she has chronic atrial fibrillation and hypertension and chronic hypoxic respiratory failure and hyperlipidemia and obstructive sleep apnea. The patient came in from [facility] intubated on mechanical ventilator. Apparently she went there with acute respiratory acidosis. Her pH was at 7.1 with a markedly elevated pCO2. She was intubated and she was brought in immediately. No further records are not available. The blood work that was done at [facility] they're all hemolyzed. The patient is currently sedated with Versed and she is calm and comfortable. Hemodynamically she has a blood pressure running in the low 100s. She is producing adequate amount of urine output. Martinez catheter was inserted. Chest x-ray shows some volume loss in the right lung probably related to previous lung surgery. I was able to insert a triple-lumen catheter for IV access. IV fluids were started. She was started on bronchodilators and steroids. Currently she on assist control mode at the rate of 14 with a tidal volume of 375 with a PEEP of 5 and FiO2 of 100%. Blood gases are still pending for now. The peak pressures around 47 anesthetic pressures 27. No significant orotracheal secretions. She is calm and comfortable sedated with the mechanical ventilator Review of Systems ROS unobtainable: due to endotracheal tube Past Medical History Past Medical History: Atrial Fibrillation, COPD, Hypertension Additional Past Medical History / Comment(s): COPD, hypertension, secondary pulmonary hypertension, chronic hypoxic respiratory failure, chronic atrial fibrillation, hyperlipidemia, obstructive sleep apnea History of Any Multi-Drug Resistant Organisms: None Reported Additional Past Surgical History / Comment(s): Right lung lung lobectomy, hernia repair and the patient has a large anterior abdominal wall incision, hysterectomy, knee surgery, cholecystectomy Past Psychological History: No Psychological Hx Reported Smoking Status: Never smoker Past Alcohol Use History: Occasional Past Drug Use History: None Reported - Past Family History Mother Family Medical History: Cancer (Stomach cancer) Father Family Medical History: Coronary Artery Disease (CAD) Medications and Allergies Home Medications Medication Instructions Recorded Confirmed Type Apixaban [Eliquis] 5 mg PO BID 07/13/19 07/13/19 History Losartan-Hctz 50-12.5 mg [Hyzaar 1 tab PO DAILY 07/13/19 07/13/19 History 50-12.5] Azithromycin [Zithromax] 500 mg PO HS #5 tab 07/15/19 Rx Budesonide/Formoterol Fumarate 1 puff IH BID #1 hfa.aer.ad 07/15/19 Rx [Symbicort 160-4.5 Mcg Inhaler] Cefuroxime Axetil [Ceftin] 500 mg PO BID 3 Days #6 tab 07/15/19 Rx Ipratropium-Albuterol Nebulize 3 ml INHALATION RT-QID #120 07/15/19 Rx [Duoneb 0.5 mg-3 mg/3 ml Soln] ampul.neb predniSONE 10 mg PO DIRECTED #30 tab 07/15/19 Rx Allergies Allergy/AdvReac Type Severity Reaction Status Date / Time No Known Allergies Allergy Verified 07/13/19 14:48 Physical Exam Vitals: Vital Signs Pulse Resp 12/08/19 12:55 81 20 Intake and Output 12/07/19 12/08/19 12/08/19 22:59 06:59 14:59 Other: Weight 113.398 kg Obese, comfortable sedated with a BMI of 40.4. Head exam was generally normal. There was no scleral icterus or corneal arcus. Mucous membranes were moist. Neck was supple and without jugular venous distension, thyromegaly, or carotid bruits. Carotids were easily palpable bilaterally. There was no adenopathy. Orogastric and orotracheal tube are both in place Lungs sounds are diminished bilaterally along with diminished breath sounds throughout the lung gan and prolongation of the exhalation phase of breathing and diffuse expiratory wheezes throughout the lung gan. Cardiac exam revealed the PMI to be normally situated and sized. The rhythm was regular and no extrasystoles were noted during several minutes of auscultation. The first and second heart sounds were normal and physiologic splitting of the second heart sound was noted. There were no murmurs, rubs, clicks, or gallops. Abdomen is obese soft nontender and the surgical and says dry clean and intact over the mid anterior abdominal wall. Organs cannot be accurately palpated. Examination of the extremities revealed easily palpable radial, femoral and pedal pulses. There was no cyanosis, clubbing or edema. Examination of the skin revealed no evidence of significant rashes, suspicious appearing nevi or other concerning lesions. Neurologic the patient is sedated and she is calm and comfortable synchronous with the mechanical ventilator. motor function analysis cannot be done as the patient was given a dose of paralytics on route here to the emergency department. Results - Diagnostic Findings Chest x-ray: image reviewed Assessment and Plan Plan: 1 Acute hypoxic/hypercapnic respiratory failure secondary to COPD exacerbation 2 altered mental status likely on the basis of CO2 narcosis investigation with COPD exacerbation 3 advanced COPD with a baseline FEV1 of 37% of predicted. The patient is oxygen dependent. 4 chronic atrial fibrillation 5 Morbid obesity 6 obstructive sleep apnea 7 hypertension 8 hyperlipidemia 9 previous lobectomy involving the right lung, exact circumstances are not known Plan Continue vent support for now Chest x-ray was reviewed and proceed with a blood gas Triple-lumen catheter was inserted Obtain the CVP measurement Cover the patient with a combination of Rocephin and Zithromax IV Solu Medrol 125 mg IV push and 60 mg every 6 hours DuoNeb nebulized treatments around the clock Sputum Gram stain and culture DVT and GI prophylaxis CAT scan of the had no contrast Resume of the coagulation with Eliquis Recent echocardiogram from July 2019 was within normal limits Awaiting full blood work panel We'll continue to follow. The patient moved obviously to the intensive care unit. An addendum will be done once more information is available. I just saw the patient in the emergency department as she was told then for respiratory failure. I assisted in the initial evaluation. Further recommendations are to follow and ICU Time with Patient: Greater than 30
[2019-12-08] MEDS ORDERED: SODIUM CHLORIDE 0.9% 1,000 ML IV STA (13:37)
[2019-12-08] MEDS ORDERED: NOREPINEPHRINE 4 MG in SODIUM CHLORIDE 0.9% 250 ML IV SCH (13:45)
[2019-12-08] MEDS ORDERED: NOREPINEPHRINE 8 MG in SODIUM CHLORIDE 0.9% 250 ML IV SCH (13:45)
[2019-12-08 14:00] LABS: Albumin 3.3 g/dL (3.5-5.0); Calcium 9.7 mg/dL (8.4-10.2); Magnesium 1.9 mg/dL (1.6-2.3); Potassium 4.3 mmol/L (3.5-5.1); Total Bilirubin 0.9 mg/dL (0.2-1.3)
[2019-12-08 14:01] LABS: Lactic Acid, Venous 1.7 mmol/L (0.7-2.0)
[2019-12-08 14:08] LABS: Prothrombin Time 10.4 sec (9.0-12.0)
[2019-12-08] MEDS: NOREPINEPHRINE 32 MG in SODIUM CHLORIDE 0.9% 218 ML IV ONE ×2 (14:20→17:00)
[2019-12-08 14:27] LABS: Basophils # (A) 0.3 k/uL (0-0.2); Basophils % (A) 2 %; Eosinophils % (A) 0 %; HCT 41.1 % (34.0-46.0); HGB 12.8 gm/dL (11.4-16.0); Lymphocytes # (A) 0.5 k/uL (1.0-4.8); Lymphocytes % (A) 4 %; MCH 29.7 pg (25.0-35.0); MCHC 31.3 g/dL (31.0-37.0); MCV 95.1 fL (80.0-100.0); Mean Platelet Volume 6.9; Monocytes # (A) 0.8 k/uL (0-1.0); Monocytes % (A) 6 %; Neutrophils % (A) 88 %; Platelet Count 228 k/uL (150-450); RBC 4.32 m/uL (3.80-5.40); RDW 13.1 % (11.5-15.5); WBC 13.7 k/uL (3.8-10.6)
--- NOTE | 2019-12-08 14:33 | CT ---
EXAMINATION TYPE: CT brain wo con DATE OF EXAM: 12/08/2019 COMPARISON: None HISTORY: 74-year-old female confusion, Altered mental status. Found unresponsive. TECHNIQUE: Examination was done in axial plane without intravenous contrast. Coronal and sagittal r econstructions performed. CT DLP: 1091.4 mGycm Automated exposure control for dose reduction was used. FINDINGS: There is no evidence of acute intracranial hemorrhage, acute ischemic changes, mass, mass-effect, or extra-axial fluid collection. There is no effacement of cerebral sulci or basal subarachnoid cister ns. There is no hydrocephalus. There is no midline shift. Cabello-white matter distinction is preserv ed. Moderate mucosal thickening ethmoid air cells. Extensive secretions filling the nasopharynx and nasal cavity. Mastoid air cells well pneumatized. Orbits and globes appear intact. No calvarial fracture. Confluent white matter hypodensities in both cerebral hemispheres. Mild age-related cerebral volume l oss. IMPRESSION: 1. Confluent changes of chronic small vessel ischemic disease. No acute intracranial abnormality seen . 2. Extensive secretions and fluid filling the nasopharynx and nasal cavity. Suction is recommended. P atient may be at risk for aspiration of fluids.
[2019-12-08 14:36] LABS: Glucose,Whole Blood 123 mg/dL (75-99)
--- NOTE | 2019-12-08 15:10 | P.PCN ---
Date of Procedure: 12/08/19 Preoperative Diagnosis: Acute respiratory failure Postoperative Diagnosis: Acute respiratory failure Procedure(s) Performed: Insertion of a triple-lumen catheter, insertion of a arterial line catheter Anesthesia: local Surgeon: Miya Bourne Estimated Blood Loss (ml): 0 IV fluids (ml): 0 Urine output (ml): 0 Pathology: other Condition: critical Disposition: ICU Operative Findings: Indication: Hemodynamic monitoring. A time-out was completed verifying correct patient, procedure, site, positioning, and implant(s) or special equipment if applicable. Eric test was performed to ensure adequate perfusion. The patient wrist on left was prepped and draped in sterile fashion. 1% Lidocaine was used to anesthetize the area. An 18G Arrow arterial line was introduced into the [radial/femoral] artery. The catheter was threaded over the guide wire and the needle was removed with appropriate pulsatile blood return. Blood loss was minimal. The catheter was then sutured in place to the skin and a sterile dressing applied. Perfusion to the extremity distal to the point of catheter insertion was checked and found to be adequate. The patient tolerated the procedure well and there were no complications. Indication: Hemodynamic monitoring/Intravenous access. A time-out was completed verifying correct patient, procedure, site, positioning, and implant(s) or special equipment if applicable. The patient was placed in a dependent position appropriate for central line placement based on the vein to be cannulated. The patien's right shoulder was prepped and draped in sterile fashion. 1% Lidocaine was used to anesthetize the surrounding skin area. A triple lumen 9F Cordis catheter was introduced into the subclavian vein using Seldinger technique. The catheter was threaded smoothly over the guide wire and appropriate blood return was obtained. Each lumen of the catheter was evacuated of air and flushed with sterile saline. The catheter was then sutured in place to the skin and a sterile dressing applied. Perfusion to the extremity distal to the point of catheter insertion was checked and found to be adequate. The patient tolerated the procedure well and there were no complications.
[2019-12-08 15:13] LABS: ABG Oxygen Saturation 99.9 % (94-97); ABG PH 7.36 (7.35-7.45); ABG PO2 386 mmHg (83-108); ABG TCO2 46 mmol/L (19-24); Allen Test Performed? Yes
[2019-12-08 15:41] LABS: ABG HCO3 43 mmol/L (21-25); ABG PCO2 77 mmHg (35-45)
[2019-12-08] MEDS: IPRATROPIUM-ALBUTEROL 3 ML NEB INHALATION SCH ×2 (15:49→19:05)
[2019-12-08] MEDS: SODIUM CHLORIDE 0.9% 1,000 ML IV SCH (16:00)
--- NOTE | 2019-12-08 16:35 | US ---
EXAMINATION TYPE: US carotid duplex BILAT DATE OF EXAM: 12/08/2019 COMPARISON: NONE CLINICAL HISTORY: 74-year-old female confusion, altered mentation. TECHNIQUE: Carotid duplex ultrasound examination. Indirect Doppler criteria was utilized. FINDINGS: EXAM MEASUREMENTS: RIGHT: Peak Systolic Velocity (PSV) cm/sec ----- Right CCA: 51.9 ----- Right ICA: 52.6 ----- Right ECA: 50.5 ICA/CCA ratio: 1.0 RIGHT: End Diastole cm/sec ----- Right CCA: 9.2 ----- Right ICA: 14.9 ----- Right ECA: 5.6 LEFT: Peak Systolic Velocity (PSV) cm/sec ----- Left CCA: 68.5 ----- Left ICA: 50.5 ----- Left ECA: 53.1 ICA/CCA ratio: 0.7 LEFT: End Diastole cm/sec ----- Left CCA: 15.4 ----- Left ICA: 18.2 ----- Left ECA: 5.1 VERTEBRALS (direction of flow): Right Vertebral: Antegrade Left Vertebral: Antegrade Rhythm: Arrhythmia Digitizer Operator notes: Technically difficult study performed portably on vented patient in ICU. No signif icant stenosis seen. No elevated velocities. Mild plaque noted bilaterally at bulbs. IMPRESSION: 1. Technically difficult study. No hemodynamically significant stenosis appreciated in either ICA. 2. Note, the acidity tester indicates an aberrant cardiac rhythm. Criteria for Assigning % of Stenosis / Diameter reduction (Estimation based on the indirect measurements of the internal carotid artery velocities (ICA PSV). 1. Normal (no stenosis)=ICA PSV < 125 cm/s: ratio < 2.0: ICA EDV<40 cm/s. 2. Less than 50% stenosis=ICA PSV < 125 cm/s: ratio < 2.0: ICA EDV<40 cm/s. 3. 50 to 69% stenosis=ICA PSV of 125 to 230 cm/s: ration 2.0 ? 4.0: ICA EDV 40-100 cm/s. 4. Greater than 70% stenosis to near occlusion= ICA PSV > 230 cm/s: ratio > 4.0: ICA EDV > 100 cm/s. 5. Near occlusion= ICA PSV velocities may be low or undetectable: variable ratio and ICA EDV. 6. Total occlusion=unable to detect flow.
[2019-12-08] MEDS: PANTOPRAZOLE 40 MG/10 ML VIAL IVP SCH (17:30)
[2019-12-08] MEDS ORDERED: INSULIN ASPART (NovoLOG) 100 UNIT/ML VIAL SQ SCH (17:30)
[2019-12-08] MEDS: methylPREDNISolone SOD SUCCI 125 MG/2 ML VIAL IV SCH ×2 (17:36→23:50)
[2019-12-08 18:01] LABS: Glucose,Whole Blood 183 mg/dL (75-99)
[2019-12-08] MEDS: BUDESONIDE 1 MG/2 ML NEBU INHALATION SCH (19:05)
[2019-12-08] MEDS: FORMOTEROL FUMARATE 20 MCG/2 ML NEBU INHALATION SCH (19:05)
[2019-12-08 19:06] LABS: Appearance,Urine Clear (Clear); Bacteria,Urine Rare /hpf; Bilirubin,Urine Negative (Negative); Blood,Urine Trace (Negative); Color,Urine Light Yellow; Glucose,Urine (UA) Negative (Negative); Hyaline Casts,Urine 9 /lpf (0-2); Ketones,Urine Negative (Negative); Leukocyte Esterase,Urine Negative (Negative); Mucus,Urine Rare /hpf; Nitrite,Urine Negative (Negative); Protein,Urine Negative (Negative); RBC,Urine 1 /hpf (0-5); Specific Gravity,Urine 1.009 (1.001-1.035); Squamous Epithelial Cell,Urine 1 /hpf (0-4); Urobilinogen,Urine <2.0 mg/dL (<2.0); WBC,Urine 2 /hpf (0-5)
[2019-12-08] MEDS ORDERED: Magnesium Replacement Protocol 1 EACH MISC MISCELLANE PRN (19:50)
[2019-12-08 20:21] LABS: Glucose,Whole Blood 208 mg/dL (75-99)
[2019-12-08] MEDS: INSULIN ASPART (NovoLOG) 100 UNIT/ML VIAL SQ SCH ×2 (20:27→23:49)
[2019-12-08] MEDS: APIXABAN 5 MG TAB PO SCH (20:28)
[2019-12-08] MEDS: CHLORHEXIDINE GLUCONATE 15 ML CUP MUCOUS MEM SCH (20:28)
[2019-12-08] MEDS: MAGNESIUM SULFATE-D5W PMX 1 GM in DEXTROSE/WATER 1 100ML.BAG IVPB SCH ×2 (20:32→21:39)
[2019-12-08] MEDS: PROPOFOL 1,000 MG in EMPTY BAG 1 BAG IV SCH (20:49)
[2019-12-08] MEDS ORDERED: HEPARIN SODIUM,PORCINE 5,000 UNIT/ML 1 ML VIAL SQ SCH (21:00)
[2019-12-08] MEDS ORDERED: SODIUM CHLORIDE 0.9% 1,000 ML IV ONE (21:43)
--- NOTE | 2019-12-08 23:13 | HP ---
HISTORY AND PHYSICAL CHIEF COMPLAINT: Shortness of breath and as well as unresponsive. HISTORY OF PRESENT ILLNESS: This 74-year-old woman with a past history of multiple medical problems including atrial fibrillation, COPD, hypertension, history of secondary pulmonary pressure, chronic hypoxic respiratory, chronic atrial fibrillation being followed by Dr. Molina in the outpatient setting was previously admitted last year in July with COPD exacerbation. During that admission, patient had right upper lobe atelectasis and right upper lobe bronchial stenosis also noted possibly. The patient also had enlarged pulmonary hilum with a 2D echo showed normal ejection fraction, dilated LA. Dr. Bourne evaluated the patient during that time. Currently the patient was apparently unresponsive at home with shortness of breath. The patient was taken to [facility] and patient had acute respiratory acidosis, acute respiratory failure, pH of 7.1. Patient was intubated and mechanically ventilated. The patient transferred to [facility] Emergency Room and was admitted to ICU at this time. Currently the patient unable to provide any coherent history most of the history taken from my discussion with the ER physician and discussion with the staff and as well as review of chart at this time. There is no history of any fever, rigor or chills. The patient was thought to have bilateral pneumonia. Patient started on IV antibiotics. Patient was also unresponsive. However, CT scan did not show any acute abnormality. Small vessel skin changes were noted but subsequently later, the patient is more responsive at this time. PAST MEDICAL HISTORY: History of COPD, history of atrial fibrillation, history of hypertension, history of secondary pulmonary hypertension. MEDICATIONS: Prior to admission: 1. Prednisone 20 mg p.o. b.i.d. 2. Losartan 1 tablet p.o. daily. 3. Levaquin 500 mg p.o. daily. 4. Eliquis 5 mg p.o. b.i.d. ALLERGIES: None. Family history, social history and review of systems could not be taken because of the patient's change in mental status. FAMILY HISTORY: History of cancer per chart. SOCIAL HISTORY: No history of smoking. Occasional alcohol intake. REVIEW OF SYSTEMS: Could not be taken. PHYSICAL EXAM: Patient is mechanically ventilated and sedated. Vent settings are noted. The tidal volume 375, rate of 16, 50% FiO2 and 5 of PEEP. Pulse 81, blood pressure 87/60, respirations 16, temp is normal. Pulse ox 99%. HEENT: Conjunctivae normal. Oral mucosa moist. NECK is no jugular venous distention. No carotid bruit. No lymph node enlargement. Cardiovascular system: S1, S2 muffled. No S3, no S4. Respirations: Breath sounds diminished in the bases. Bilateral scattered rhonchi and crackles. Expiratory wheezing also present. ABDOMEN: Soft, obese, nontender. No mass palpable. LEGS no edema. No swelling. NERVOUS SYSTEM: Patient is mechanically sedated. SKIN: No ulcers, no rashes and no bleeding. JOINTS: No active deforming arthropathy. LABS: WBC 13.2, hemoglobin 12.8 and sodium 140, potassium 4.3 and troponin 0.05. ASSESSMENT: 1. Chronic obstructive pulmonary disease acute exacerbation with acute bilateral pneumonia possibly gram-negative with possible sepsis and acute hypoxic hypercarbic respiratory failure on mechanical ventilation. 2. Troponin 0.054, indeterminate. Rule out myocardial infarction. 3. Increased WBC. 4. History of right lung lower lobectomy. 5. History of right upper lobe atelectasis and possible bronchial stenosis. 6. Hypertension. 7. History of chronic obstructive pulmonary disease. 8. History of atrial fibrillation, chronic, rate controlled. 9. History of pulmonary hypertension. 10.Chronic hypoxic respiratory failure. 11.History of hyperlipidemia. 12.Obstructive sleep apnea. 13.History of hernia repair. 14.History of anterior abdominal wall incision. 15.Incisional hernia. 16.History of degenerative joint disease. 17.Obesity with body mass index of 40.4. RECOMMENDATIONS AND DISCUSSION: In this 74-year-old woman who presented with multiple complex medical issues, at this time, we will monitor the patient closely. Continue the current medications, management and symptomatic treatment. Otherwise, at this time I recommend continue the bronchodilators continue the antibiotics. Continue with IV steroids. Follow the cultures. Otherwise, prognosis guarded. A copy of this dictation being forwarded to Dr. Molina who is the primary physician. See orders for details. BNP is also slightly elevated. Will repeat the 2D echo with Doppler and also obtain a Cardiology consultation as well, especially with indeterminate troponins. MMODL / IJN: [id number] /
[2019-12-08 23:47] LABS: Glucose,Whole Blood 217 mg/dL (75-99)
[2019-12-09] MEDS: PROPOFOL 1,000 MG in EMPTY BAG 1 BAG IV SCH ×2 (01:55→06:06)
[2019-12-09 03:58] LABS: Glucose,Whole Blood 178 mg/dL (75-99)
[2019-12-09] MEDS: INSULIN ASPART (NovoLOG) 100 UNIT/ML VIAL SQ SCH ×5 (04:02→20:58)
[2019-12-09 04:39] LABS: ABG Base Excess 16.4 mmol/L; ABG Oxygen Saturation 99.3 % (94-97); ABG PCO2 56 mmHg (35-45); ABG PH 7.46 (7.35-7.45); ABG PO2 130 mmHg (83-108); ABG TCO2 42 mmol/L (19-24)
[2019-12-09 04:47] LABS: ABG HCO3 40 mmol/L (21-25); Allen Test Performed? no
[2019-12-09 04:53] LABS: Basophils # (A) 0.1 k/uL (0-0.2); Basophils % (A) 1 %; Eosinophils % (A) 0 %; HCT 37.8 % (34.0-46.0); HGB 12.2 gm/dL (11.4-16.0); Lymphocytes # (A) 0.5 k/uL (1.0-4.8); Lymphocytes % (A) 3 %; MCH 30.3 pg (25.0-35.0); MCHC 32.3 g/dL (31.0-37.0); MCV 93.9 fL (80.0-100.0); Mean Platelet Volume 7.3; Monocytes # (A) 0.3 k/uL (0-1.0); Monocytes % (A) 2 %; Neutrophils # (A) 15.3 k/uL (1.3-7.7); Neutrophils % (A) 94 %; Platelet Count 239 k/uL (150-450); RBC 4.03 m/uL (3.80-5.40); WBC 16.4 k/uL (3.8-10.6)
[2019-12-09 05:03] LABS: Calcium 8.9 mg/dL (8.4-10.2); Magnesium 2.3 mg/dL (1.6-2.3); Potassium 3.3 mmol/L (3.5-5.1)
[2019-12-09 05:25] LABS: Phosphorus 0.9 mg/dL (2.5-4.5)
[2019-12-09] MEDS ORDERED: Phosphorus Replacement Protoco 1 EACH MISC MISCELLANE PRN ×2 (05:26→17:47)
[2019-12-09] MEDS ORDERED: POTASSIUM BICARBONATE/CIT AC 20 MEQ TABLET.EFF NG-TUBE SCH (06:00)
[2019-12-09] MEDS: POTASSIUM PHOSPHATE 10 MMOL in SODIUM CHLORIDE 0.9% 100 ML IV SCH ×3 (06:02→11:46)
--- NOTE | 2019-12-09 06:04 | XR ---
EXAMINATION TYPE: XR chest 1V portable DATE OF EXAM: 12/09/2019 HISTORY: Tube placement. REFERENCE: Previous study dated 12/08/2019. FINDINGS: A right subclavian catheter remains in place, unchanged in appearance. The patient is ET tu be and NG tube remain in place, unchanged in appearance. There is worsening bibasilar airspace disease. There are small effusions. The heart is mildly enlarge d. IMPRESSION: 1. WORSENING BIBASILAR AIRSPACE DISEASE. 2. SMALL, BILATERAL EFFUSIONS.
[2019-12-09] MEDS: methylPREDNISolone SOD SUCCI 125 MG/2 ML VIAL IV SCH ×4 (06:05→23:45)
[2019-12-09] MEDS: SODIUM CHLORIDE 0.9% 1,000 ML IV SCH ×2 (06:06→23:45)
[2019-12-09] MEDS: POTASSIUM CHLORIDE 20 MEQ in WATER FOR INJECTION 1 100ML.BAG IVPB SCH ×2 (06:09→09:03)
[2019-12-09] MEDS: FORMOTEROL FUMARATE 20 MCG/2 ML NEBU INHALATION SCH ×2 (07:33→20:04)
[2019-12-09] MEDS: BUDESONIDE 1 MG/2 ML NEBU INHALATION SCH ×2 (07:34→20:04)
[2019-12-09] MEDS: IPRATROPIUM-ALBUTEROL 3 ML NEB INHALATION SCH ×4 (07:34→20:04)
[2019-12-09 08:06] LABS: Glucose,Whole Blood 141 mg/dL (75-99)
[2019-12-09] MEDS: NYSTATIN 100,000 UNIT/GM POWD 15 GM TOPICAL SCH ×2 (08:56→21:20)
[2019-12-09] MEDS: PANTOPRAZOLE 40 MG/10 ML VIAL IVP SCH (09:02)
[2019-12-09] MEDS: CHLORHEXIDINE GLUCONATE 15 ML CUP MUCOUS MEM SCH (09:03)
[2019-12-09] MEDS: APIXABAN 5 MG TAB PO SCH ×2 (09:06→21:20)
[2019-12-09] MEDS: LOSARTAN-HCTZ 50-12.5 MG 1 EACH TAB PO SCH (09:06)
--- NOTE | 2019-12-09 10:16 | P.PN ---
Subjective Progress Note Date: 12/09/19 On today's evaluation of 2019 and seeing the patient for a follow-up. The patient is fully alert and awake this morning. Note that after my departure from the ICU, I was contacted by the nursing staff indicating that the patient was fully awake and alert and she was following commands. This was exciting news as the patient was completely unresponsive for a few hours after she arrived to our intensive care unit. The same as for today. The patient is wide awake. She is following commands and answering questions and she is even writing. The patient is on assist control mode of ventilation. At peak airway pressures dropped down to 24. She is on a rate of 16 with a tidal volume of 375 and an FiO2 of 40% with a PEEP of 5. Chest x-ray shows no significant abnormalities. She remains hemodynamically stable. Pulse ox is 97% on room air. She is still bronchospastic and wheezy. No fever. No chills. No neck stiffness. No significant swelling lower extremities. No cardiac arrhythmias h ave been noted. The blood gases from today shows a pH of 7.46, with a pCO2 of 56 and pO2 of 130. The patient is currently intubated by #7 orotracheal tube. She remains on bronchodilators per she remains on systemic steroids. Her bronchospasm and wheezing has improved considerably. Objective - Vital Signs Vital signs: Vital Signs Temp 98.2 F 12/09/19 08:00 Pulse 85 12/09/19 10:00 Resp 21 12/09/19 10:00 BP 107/53 12/09/19 08:30 Pulse Ox 99 12/09/19 10:00 Intake & Output 12/08/19 12/09/19 12/09/19 18:59 06:59 18:59 Intake Total 266.104 1107.122 438.358 Output Total 500 475 155 Balance -60.925 1854.122 283.358 Weight 102.2 kg 103.2 kg Intake: IV 428 9047 374 Potassium Chloride 20 meq 100 100 In Water For Injection 1 100ml.bag @ 50 mls/hr IVPB Q2H [facility] Rx#: [id number] Potassium Phosphate 10 100 100 mmol In Sodium Chloride 0 .9% 100 ml @ 50 mls/hr IV Q2H [facility]ON Rx#:[id number] Pressure Bag 18 72 24 Sodium Chloride 0.9 410 1825 150 Intake, IV Titration 11.075 232.122 4.358 Amount Norepinephrine 32 mg In 41.365 4.358 Sodium Chloride 0.9% 218 ml @ 0.05 MCG/KG/MIN 2. 658 mls/hr IV .Q24H ONE Rx#:[id number] Propofol 1,000 mg In 190.757 Empty Bag 1 bag @ Titrate IV .Q0M [facility] Rx#: [id number] Other 60 Output: Urine 500 475 155 Other: Voiding Method Indwelling Catheter Indwelling Catheter Indwelling Catheter # Voids 150 ABP, PAP, CO, CI - Last Documented Arterial Blood Pressure 156/63 - Exam Gen. appearance she is intubated, comfortable likely distress awake and alert and she is requesting the ET tube to be removed. Head exam was generally normal. There was no scleral icterus or corneal arcus. Mucous membranes were moist. Neck was supple and without jugular venous distension, thyromegaly, or carotid bruits. Carotids were easily palpable bilaterally. There was no adenopathy. Orogastric and orotracheal tube are both in place. Lungs sounds are diminished is some scattered expiratory wheezes throughout the lung gan bilaterally. Cardiac exam revealed the PMI to be normally situated and sized. The rhythm was regular and no extrasystoles were noted during several minutes of auscultation. The first and second heart sounds were normal and physiologic splitting of the second heart sound was noted. There were no murmurs, rubs, clicks, or gallops. Abdominal exam revealed normal bowel sounds. The abdomen was soft, non-tender, and without masses, organomegaly, or appreciable enlargement of the abdominal aorta. Examination of the extremities revealed easily palpable radial, femoral and pedal pulses. There was no cyanosis, clubbing or edema. Neurologically awake and alert and there is no focal neurological deficit. She is following commands and answering questions and she is moving all 4 extremities without any limitation. Pupils are equal and reactive to light. - Labs CBC & Chem 7: 12/09/19 04:36 12/09/19 04:36 Labs: Abnormal Lab Results - Last 24 Hours (Table) 12/08/19 12/08/19 12/08/19 Range/Units 13:40 13:40 13:40 WBC 13.7 H (3.8-10.6) k/uL Neutrophils # 12.0 H (1.3-7.7) k/uL Lymphocytes # 0.5 L (1.0-4.8) k/uL Basophils # 0.3 H (0-0.2) k/uL ABG pH (7.35-7.45) ABG pCO2 (35-45) mmHg ABG pO2 (83-108) mmHg ABG HCO3 (21-25) mmol/L ABG Total CO2 (19-24) mmol/L ABG O2 Saturation (94-97) % Potassium (3.5-5.1) mmol/L Chloride 93 L (98-107) mmol/L Carbon Dioxide 40 H (22-30) mmol/L BUN 29 H (7-17) mg/dL Glucose 174 H (74-99) mg/dL POC Glucose (mg/dL) (75-99) mg/dL Phosphorus (2.5-4.5) mg/dL Ammonia 34 H (<30) umol/L Troponin I (0.000-0.034) ng/mL Total Protein 6.0 L (6.3-8.2) g/dL Albumin 3.3 L (3.5-5.0) g/dL Urine Blood (Negative) Urine Bacteria (None) /hpf Hyaline Casts (0-2) /lpf Urine Mucus (None) /hpf 12/08/19 12/08/19 12/08/19 Range/Units 13:40 14:34 15:11 WBC (3.8-10.6) k/uL Neutrophils # (1.3-7.7) k/uL Lymphocytes # (1.0-4.8) k/uL Basophils # (0-0.2) k/uL ABG pH (7.35-7.45) ABG pCO2 77 H* (35-45) mmHg ABG pO2 386 H (83-108) mmHg ABG HCO3 43 H* (21-25) mmol/L ABG Total CO2 46 H (19-24) mmol/L ABG O2 Saturation 99.9 H (94-97) % Potassium (3.5-5.1) mmol/L Chloride (98-107) mmol/L Carbon Dioxide (22-30) mmol/L BUN (7-17) mg/dL Glucose (74-99) mg/dL POC Glucose (mg/dL) 123 H (75-99) mg/dL Phosphorus (2.5-4.5) mg/dL Ammonia (<30) umol/L Troponin I 0.054 H* (0.000-0.034) ng/mL Total Protein (6.3-8.2) g/dL Albumin (3.5-5.0) g/dL Urine Blood (Negative) Urine Bacteria (None) /hpf Hyaline Casts (0-2) /lpf Urine Mucus (None) /hpf 12/08/19 12/08/19 12/08/19 Range/Units 17:59 18:44 20:20 WBC (3.8-10.6) k/uL Neutrophils # (1.3-7.7) k/uL Lymphocytes # (1.0-4.8) k/uL Basophils # (0-0.2) k/uL ABG pH (7.35-7.45) ABG pCO2 (35-45) mmHg ABG pO2 (83-108) mmHg ABG HCO3 (21-25) mmol/L ABG Total CO2 (19-24) mmol/L ABG O2 Saturation (94-97) % Potassium (3.5-5.1) mmol/L Chloride (98-107) mmol/L Carbon Dioxide (22-30) mmol/L BUN (7-17) mg/dL Glucose (74-99) mg/dL POC Glucose (mg/dL) 183 H 208 H (75-99) mg/dL Phosphorus (2.5-4.5) mg/dL Ammonia (<30) umol/L Troponin I (0.000-0.034) ng/mL Total Protein (6.3-8.2) g/dL Albumin (3.5-5.0) g/dL Urine Blood Trace H (Negative) Urine Bacteria Rare H (None) /hpf Hyaline Casts 9 H (0-2) /lpf Urine Mucus Rare H (None) /hpf 12/08/19 12/09/19 12/09/19 Range/Units 23:46 03:56 04:36 WBC 16.4 H (3.8-10.6) k/uL Neutrophils # 15.3 H (1.3-7.7) k/uL Lymphocytes # 0.5 L (1.0-4.8) k/uL Basophils # (0-0.2) k/uL ABG pH (7.35-7.45) ABG pCO2 (35-45) mmHg ABG pO2 (83-108) mmHg ABG HCO3 (21-25) mmol/L ABG Total CO2 (19-24) mmol/L ABG O2 Saturation (94-97) % Potassium (3.5-5.1) mmol/L Chloride (98-107) mmol/L Carbon Dioxide (22-30) mmol/L BUN (7-17) mg/dL Glucose (74-99) mg/dL POC Glucose (mg/dL) 217 H 178 H (75-99) mg/dL Phosphorus (2.5-4.5) mg/dL Ammonia (<30) umol/L Troponin I (0.000-0.034) ng/mL Total Protein (6.3-8.2) g/dL Albumin (3.5-5.0) g/dL Urine Blood (Negative) Urine Bacteria (None) /hpf Hyaline Casts (0-2) /lpf Urine Mucus (None) /hpf 12/09/19 12/09/19 12/09/19 Range/Units 04:36 04:37 08:04 WBC (3.8-10.6) k/uL Neutrophils # (1.3-7.7) k/uL Lymphocytes # (1.0-4.8) k/uL Basophils # (0-0.2) k/uL ABG pH 7.46 H (7.35-7.45) ABG pCO2 56 H (35-45) mmHg ABG pO2 130 H (83-108) mmHg ABG HCO3 40 H* (21-25) mmol/L ABG Total CO2 42 H (19-24) mmol/L ABG O2 Saturation 99.3 H (94-97) % Potassium 3.3 L (3.5-5.1) mmol/L Chloride 97 L (98-107) mmol/L Carbon Dioxide 39 H (22-30) mmol/L BUN 31 H (7-17) mg/dL Glucose 174 H (74-99) mg/dL POC Glucose (mg/dL) 141 H (75-99) mg/dL Phosphorus 0.9 L* (2.5-4.5) mg/dL Ammonia (<30) umol/L Troponin I (0.000-0.034) ng/mL Total Protein (6.3-8.2) g/dL Albumin (3.5-5.0) g/dL Urine Blood (Negative) Urine Bacteria (None) /hpf Hyaline Casts (0-2) /lpf Urine Mucus (None) /hpf Assessment and Plan Plan: 1 Acute hypoxic/hypercapnic respiratory failure secondary to COPD exacerbation. 2 altered mental status likely on the basis of CO2 narcosis investigation with COPD exacerbation 3 advanced COPD with a baseline FEV1 of 37% of predicted. The patient is oxygen dependent. 4 chronic atrial fibrillation 5 Morbid obesity 6 obstructive sleep apnea 7 hypertension 8 hyperlipidemia 9 previous lobectomy involving the right lung, exact circumstances are not known 10 diminished level of consciousness, improved and the patient is fully awake and alert on today's evaluation. Plan This patient has done significant amount of progress over the past 24 hours. She is less bronchospastic and wheezy. Blood gases improved. I'm going to check a set of weaning parameters and the numbers are looking good were going to extubate this patient to a BiPAP. She is wide awake and alert and she has a good cough and a chest x-ray from today shows no significant acute abnormalities. Continue IV Solu-Medrol Continue DuoNeb neb treatments around the clock Awaiting sputum Gram stain and culture Canceled a follow-up CAT scan of the brain Continue oral Eliquis Neurologically improved and hold any form of sedation Possible successful extubation today depending on her progress. Is a critically care evaluation that was done and more than 30 minutes. We'll check a blood gas after extubation while on BiPAP. Time with Patient: Greater than 30
[2019-12-09 11:44] LABS: Glucose,Whole Blood 121 mg/dL (75-99)
[2019-12-09 11:51] LABS: ABG Base Excess 16.1 mmol/L; ABG Oxygen Saturation 97.4 % (94-97); ABG PCO2 59 mmHg (35-45); ABG PH 7.44 (7.35-7.45); ABG PO2 82 mmHg (83-108); ABG TCO2 42 mmol/L (19-24); Allen Test Performed? Yes
[2019-12-09 11:54] LABS: ABG HCO3 40 mmol/L (21-25)
--- NOTE | 2019-12-09 14:51 | P.CRDCN ---
History of Present Illness Consult date: 12/09/19 History of present illness: This is a 74-year-old female with history of severe COPD who was taken to [facility] with increasing shortness of breath and decreasing mental status. Apparently she was unresponsive and had severe respiratory failure and hypoxia requiring intubation and subsequent transfer to this hospital. When she came to this hospital patient was comatose and unresponsive. Patient respiratory status gradually improved and by this morning patient seemed to be more alert and oriented. She does appear to be in respiratory distress with audible wheezing diffusely. We're asked to see the patient because of abnormal troponin. Not is only one value available at this time. Her creatinine within normal limit. The increase in troponin value could be related to hypoxia and respiratory failure. However, we will try to get the trend of troponin by repeating it. She had previous echocardiogram which showed normal LV function with evidence of moderate pulmonary hypertension. We'll also repeat echocardiogram. We'll continue to follow her. Chest x-ray shows some bibasilar air space disease more so on the right side Review of Systems As per the chart Past Medical History Past Medical History: Atrial Fibrillation, COPD, Hypertension Additional Past Medical History / Comment(s): COPD, hypertension, secondary pulmonary hypertension, chronic hypoxic respiratory failure, chronic atrial fibrillation, hyperlipidemia, obstructive sleep apnea History of Any Multi-Drug Resistant Organisms: None Reported Additional Past Surgical History / Comment(s): Right lung lung lobectomy, hernia repair and the patient has a large anterior abdominal wall incision, hysterectomy, knee surgery, cholecystectomy Past Psychological History: No Psychological Hx Reported Smoking Status: Never smoker Past Alcohol Use History: Occasional Past Drug Use History: None Reported - Past Family History Mother Family Medical History: Cancer Father Family Medical History: Coronary Artery Disease (CAD) Medications and Allergies Home Medications Medication Instructions Recorded Confirmed Type Apixaban [Eliquis] 5 mg PO BID 07/13/19 12/08/19 History Losartan-Hctz 50-12.5 mg [Hyzaar 1 tab PO DAILY 07/13/19 12/08/19 History 50-12.5] Levofloxacin [Levaquin] 500 mg PO DAILY 12/08/19 12/08/19 History predniSONE [Deltasone] 20 mg PO BID 12/08/19 12/08/19 History Allergies Allergy/AdvReac Type Severity Reaction Status Date / Time No Known Allergies Allergy Verified 07/13/19 14:48 Physical Exam Vitals: Vital Signs Temp Pulse Resp BP Pulse Ox 12/09/19 14:00 90 11 L 99 12/09/19 13:00 105 H 20 95 12/09/19 12:17 106 H 12/09/19 12:00 98.5 F 86 17 97 12/09/19 11:59 105 H 12/09/19 11:30 84 12 96 12/09/19 11:00 88 12 95 12/09/19 10:30 90 15 94 L 12/09/19 10:00 85 21 99 12/09/19 09:30 104 H 20 99 12/09/19 09:00 92 16 98 12/09/19 08:30 85 16 107/53 98 12/09/19 08:00 98.2 F 65 16 98 12/09/19 07:55 16 12/09/19 07:49 58 L 12/09/19 07:48 58 L 12/09/19 07:38 57 L 12/09/19 07:30 61 16 117/60 97 12/09/19 07:00 65 19 97 12/09/19 06:30 70 16 117/60 97 12/09/19 06:00 65 16 97 12/09/19 05:30 66 19 97 12/09/19 05:00 64 16 97 12/09/19 04:30 73 16 97 12/09/19 04:00 98.4 F 75 16 121/61 97 12/09/19 03:30 72 22 97 12/09/19 03:00 64 16 97 12/09/19 02:30 73 23 99 12/09/19 02:00 77 19 115/51 97 12/09/19 01:30 70 16 97 12/09/19 01:00 75 19 97 12/09/19 00:30 74 18 97 12/09/19 00:17 68 16 97 12/09/19 00:00 98.8 F 72 22 97 12/08/19 23:30 75 23 97 12/08/19 23:15 74 16 97 12/08/19 23:00 73 16 97 12/08/19 22:45 77 15 97 12/08/19 22:30 74 16 97 12/08/19 22:15 76 16 104/43 97 12/08/19 22:00 78 20 97 12/08/19 21:45 80 16 97 12/08/19 21:30 74 16 98 12/08/19 21:15 83 16 92/41 98 12/08/19 21:00 89 16 125/52 98 12/08/19 20:45 92 16 97 12/08/19 20:30 92 15 97 12/08/19 20:15 99.4 F 83 16 125/52 98 12/08/19 20:00 81 17 98 12/08/19 19:45 82 16 98 12/08/19 19:30 81 22 108/62 99 12/08/19 19:24 70 12/08/19 19:15 74 16 108/62 100 12/08/19 19:05 66 12/08/19 19:00 70 21 98 12/08/19 18:45 77 16 101/38 98 12/08/19 18:30 76 16 97 12/08/19 18:15 70 22 101/38 98 12/08/19 18:00 80 18 97 12/08/19 17:45 74 25 H 98 12/08/19 17:30 76 21 94 L 12/08/19 17:15 76 16 119/69 97 12/08/19 17:00 79 16 97 12/08/19 16:45 79 17 85/68 96 12/08/19 16:30 101 H 17 101/55 96 12/08/19 16:15 101 H 16 103/81 98 12/08/19 16:05 88 12/08/19 16:00 81 16 87/62 99 12/08/19 15:49 90 12/08/19 15:45 94 16 105/82 96 12/08/19 15:30 89 16 112/59 99 12/08/19 15:15 90 16 90/58 100 12/08/19 15:00 98.6 F 98 16 136/77 100 Intake and Output 12/08/19 12/09/19 12/09/19 22:59 06:59 14:59 Intake Total 477.603 9280.866 787.358 Output Total 570 405 345 Balance 265.576 3272.866 442.358 Intake: IV 752 6603 723 Potassium Chloride 20 meq 100 100 In Water For Injection 1 100ml.bag @ 50 mls/hr IVPB Q2H [facility] Rx#: [id number] Potassium Phosphate 10 100 200 mmol In Sodium Chloride 0 .9% 100 ml @ 50 mls/hr IV Q2H [facility] Rx#:[id number] Pressure Bag 42 48 48 Sodium Chloride 0.9 710 1525 375 Intake, IV Titration 11.331 231.866 4.358 Amount Norepinephrine 32 mg In 11.075 41.365 4.358 Sodium Chloride 0.9% 218 ml @ 0.05 MCG/KG/MIN 2. 658 mls/hr IV .Q24H [facility] Rx#:[id number] Propofol 1,000 mg In 0.256 190.501 Empty Bag 1 bag @ Titrate IV .Q0M [facility] Rx#: [id number] Other 60 Output: Urine 570 405 345 Other: Voiding Method Indwelling Catheter Indwelling Catheter Indwelling Catheter # Voids 150 Weight 103.2 kg ABP, PAP, CO, CI - Last 8 Hours Arterial Blood Pressure 150/63 Arterial Blood Pressure 139/55 Arterial Blood Pressure 144/62 Arterial Blood Pressure 146/57 Arterial Blood Pressure 141/57 Arterial Blood Pressure 145/54 Arterial Blood Pressure 156/63 Arterial Blood Pressure 143/61 Arterial Blood Pressure 144/61 Arterial Blood Pressure 126/59 Arterial Blood Pressure 123/64 Arterial Blood Pressure 122/61 Arterial Blood Pressure 117/58 GENERAL EXAM: Patient is alert and oriented and doesn't appear to be in any acute distress HEENT: Normocephalic. Normal reaction of pupils, equal size, normal range of extraocular motion. No erythema or exudates in the throat. NECK: No masses, no nuchal rigidity. CHEST: No chest wall deformity. LUNGS: Pretty wheezes bilaterally HEART: Irregular rhythm ABDOMEN: No hepatosplenomegaly, normal bowel sounds, no guarding or rigidity. SKIN: No rashes CENTRAL NERVOUS SYSTEM: No focal deficits. EXTREMITIES: No cyanosis, clubbing or edema. Results 12/09/19 04:36 12/09/19 04:36 CBC 12/09/19 Range/Units 04:36 WBC 16.4 H (3.8-10.6) k/uL RBC 4.03 (3.80-5.40) m/uL Hgb 12.2 (11.4-16.0) gm/dL Hct 37.8 (34.0-46.0) % Plt Count 239 (150-450) k/uL Comprehensive Metabolic Panel 12/09/19 Range/Units 04:36 Sodium 138 (137-145) mmol/L Potassium 3.3 L (3.5-5.1) mmol/L Chloride 97 L (98-107) mmol/L Carbon Dioxide 39 H (22-30) mmol/L BUN 31 H (7-17) mg/dL Creatinine 1.04 (0.52-1.04) mg/dL Glucose 174 H (74-99) mg/dL Calcium 8.9 (8.4-10.2) mg/dL Current Medications Generic Name Dose Route Start Last Admin Trade Name Freq PRN Reason Stop Dose Admin Albuterol/Ipratropium 3 ml 12/08/19 16:00 12/09/19 11:41 Duoneb 0.5 Mg-3 Mg/3 Ml Soln INHALATION 3 ml RT-QID [facility] Administration Albuterol/Ipratropium 3 ml 12/08/19 15:17 Duoneb 0.5 Mg-3 Mg/3 Ml Soln INHALATION RT-QID PRN Shortness Of Breath Or Wheezing Apixaban 5 mg 12/08/19 21:00 12/09/19 09:06 Eliquis PO 5 mg BID [facility] Administration Budesonide 1 mg 12/08/19 20:00 12/09/19 07:34 Pulmicort INHALATION 1 mg RT-BID [facility] Administration Formoterol Fumarate 20 mcg 12/08/19 20:00 12/09/19 07:33 Perforomist INHALATION 20 mcg RT-BID [facility] Administration HCTZ/Losartan Potassium 1 each 12/09/19 09:00 12/09/19 09:06 Hyzaar 50-12.5 PO 1 each DAILY [facility] Administration Ceftriaxone Sodium 1 gm/ 50 mls @ 100 mls/hr 12/09/19 14:00 Sodium Chloride IVPB Q24H [facility] Azithromycin 500 mg/ Sodium 250 mls @ 250 mls/hr 12/09/19 16:00 Chloride IVPB Q24H [facility] Sodium Chloride 1,000 mls @ 75 mls/hr 12/08/19 16:30 12/09/19 06:06 Saline 0.9% IV 75 mls/hr .[id number] [facility] Administration Propofol 1,000 mg/ IV Solution 100 mls @ 0 mls/hr 12/08/19 17:15 12/09/19 06:06 IV 40 mcg/kg/min .Q0M [facility] 24.528 mls/hr Administration Protocol Titrate Insulin Aspart 0 unit 12/08/19 20:00 12/09/19 11:43 Novolog SQ Not Given Q4HR [facility] Protocol Methylprednisolone Sodium Succinate 60 mg 12/08/19 18:00 12/09/19 11:46 Solu-Medrol IV 60 mg Q6HR [facility] Administration Miscellaneous Information 1 each 12/08/19 19:50 Magnesium Per Protocol MISCELLANE DAILY PRN Per Protocol Protocol Miscellaneous Information 1 each 12/09/19 05:26 Phosphorus Per Protocol MISCELLANE DAILY PRN Per Protocol Protocol Nystatin 1 applic 12/09/19 09:00 12/09/19 08:56 Mycostatin Powder TOPICAL 1 applic BID [facility] Administration Pantoprazole Sodium 40 mg 12/08/19 15:30 12/09/19 09:02 Protonix IVP 40 mg DAILY [facility] Administration Intake and Output 12/08/19 12/09/19 12/09/19 22:59 06:59 14:59 Intake Total 103.908 0837.866 787.358 Output Total 570 405 345 Balance 427.627 1339.866 442.358 Intake: IV 752 1773 723 Potassium Chloride 20 meq 100 100 In Water For Injection 1 100ml.bag @ 50 mls/hr IVPB Q2H [facility] Rx#: [id number] Potassium Phosphate 10 100 200 mmol In Sodium Chloride 0 .9% 100 ml @ 50 mls/hr IV Q2H [facility] Rx#:[id number] Pressure Bag 42 48 48 Sodium Chloride 0.9 710 1525 375 Intake, IV Titration 11.331 231.866 4.358 Amount Norepinephrine 32 mg In 11.075 41.365 4.358 Sodium Chloride 0.9% 218 ml @ 0.05 MCG/KG/MIN 2. 658 mls/hr IV .Q24H [facility] Rx#:[id number] Propofol 1,000 mg In 0.256 190.501 Empty Bag 1 bag @ Titrate IV .Q0M [facility] Rx#: [id number] Other 60 Output: Urine 570 405 345 Other: Voiding Method Indwelling Catheter Indwelling Catheter Indwelling Catheter # Voids 150 Weight 103.2 kg 12/09/19 04:36 12/09/19 04:36 EKG Interpretations (text) Atrial fibrillation with controlled ventricular response Assessment and Plan (1) Chronic atrial fibrillation Current Visit: Yes Status: Acute Code(s): I48.20 - CHRONIC ATRIAL FIBRILLATION, UNSPECIFIED SNOMED Code(s): 265130654 (2) Acute respiratory distress syndrome in adult Current Visit: Yes Status: Acute Code(s): J80 - ACUTE RESPIRATORY DISTRESS SYNDROME SNOMED Code(s): 14702929 (3) COPD exacerbation Current Visit: Yes Status: Acute Code(s): J44.1 - CHRONIC OBSTRUCTIVE PULMO NARY DISEASE W (ACUTE) EXACERBATION SNOMED Code(s): 934571099 (4) Troponin level elevated Current Visit: Yes Status: Acute Code(s): R79.89 - OTHER SPECIFIED ABNORMAL FINDINGS OF BLOOD CHEMISTRY SNOMED Code(s): 710762438 Plan: I will repeat another troponin value. Get an echocardiogram. Continue current medical therapy. We'll follow
[2019-12-09] MEDS ORDERED: AZITHROMYCIN 500 MG in SODIUM CHLORIDE 0.9% 250 ML IVPB SCH (16:00)
[2019-12-09 16:46] LABS: Glucose,Whole Blood 134 mg/dL (75-99)
--- NOTE | 2019-12-09 18:00 | ECHOF ---
Referral Reason: MEASUREMENTS -------- HEIGHT: 167.6 cm WEIGHT: 113.4 kg BP: RVIDd: 2.8 cm (< 3.3) IVSd: 1.6 cm (0.6 - 1.1) LVIDd: 3.5 cm (3.9 - 5.3) LVPWd: 1.5 cm (0.6 - 1.1) IVSs: 1.7 cm LVIDs: 2.5 cm LVPWs: 1.6 cm MV EXCURSION: 19.913 mm (> 18.000) MV EF SLOPE: 89 mm/s (70 - 150) EPSS: 0.6 cm MV E Shaun: 0.99 m/s MV DecT: 263 ms MV A Shaun: 0.43 m/s MV E/A Ratio: 2.33 RAP: 5.00 mmHg RVSP: 34.77 mmHg FINDINGS -------- Sinus rhythm. This was a technically difficult study with suboptimal views. The left ventricular size is normal. There is moderate concentric left ventricular hypertrophy. O verall left ventricular systolic function is normal with, an EF between 55 - 60 %. The right ventricle is normal in size. The left atrial size is normal. The right atrial size is normal. xx ml of Lumason was utilized for enhancement of images. The aortic valve was not well visualized. The mitral valve is normal. The mitral valve leaflets are mildly thickened. There is trace mitral regurgitation. The tricuspid valve appears structurally normal. Mild tricuspid regurgitation present. There is b orderline pulmonary hypertension. The right ventricular systolic pressure, as measured by Doppler, is 34.77mmHg. The pulmonic valve was not well visualized. The aortic root size is normal. IVC Not well visulized. There is no pericardial effusion. CONCLUSIONS -------- 1. Sinus rhythm. 2. This was a technically difficult study with suboptimal views. 3. The left ventricular size is normal. 4. There is moderate concentric left ventricular hypertrophy. 5. Overall left ventricular systolic function is normal with, an EF between 55 - 60 %. 6. The right ventricle is normal in size. 7. The left atrial size is normal. 8. The right atrial size is normal. 9. xx ml of Lumason was utilized for enhancement of images. 10. The aortic valve was not well visualized. 11. The mitral valve is normal. 12. The mitral valve leaflets are mildly thickened. 13. There is trace mitral regurgitation. 14. The tricuspid valve appears structurally normal. 15. Mild tricuspid regurgitation present. 16. There is borderline pulmonary hypertension. 17. The right ventricular systolic pressure, as measured by Doppler, is 34.77mmHg. 18. The pulmonic valve was not well visualized. 19. The aortic root size is normal. 20. IVC Not well visulized. 21. There is no pericardial effusion. SENIOR ECOLOGIST: Lexy Castro RDCS
[2019-12-09] MEDS: DILTIAZEM ORAL 60 MG TAB PO SCH ×2 (18:40→21:18)
[2019-12-09 20:31] LABS: Glucose,Whole Blood 152 mg/dL (75-99)
[2019-12-09] MEDS: IPRATROPIUM-ALBUTEROL 3 ML NEB INHALATION PRN (23:28)
[2019-12-10] MEDS: IPRATROPIUM-ALBUTEROL 3 ML NEB INHALATION PRN (03:13)
[2019-12-10 04:56] LABS: Basophils % (A) 0 %; Eosinophils % (A) 0 %; HCT 37.3 % (34.0-46.0); HGB 11.8 gm/dL (11.4-16.0); Lymphocytes # (A) 0.4 k/uL (1.0-4.8); Lymphocytes % (A) 3 %; MCH 30.3 pg (25.0-35.0); MCHC 31.6 g/dL (31.0-37.0); MCV 95.9 fL (80.0-100.0); Mean Platelet Volume 7.2; Monocytes # (A) 0.2 k/uL (0-1.0); Monocytes % (A) 2 %; Neutrophils # (A) 10.8 k/uL (1.3-7.7); Neutrophils % (A) 94 %; Platelet Count 178 k/uL (150-450); RBC 3.89 m/uL (3.80-5.40); RDW 13.1 % (11.5-15.5); WBC 11.5 k/uL (3.8-10.6)
[2019-12-10 05:08] LABS: Calcium 8.9 mg/dL (8.4-10.2); Phosphorus 3.7 mg/dL (2.5-4.5)
[2019-12-10] MEDS: methylPREDNISolone SOD SUCCI 125 MG/2 ML VIAL IV SCH ×4 (05:37→23:34)
[2019-12-10 06:46] LABS: Glucose,Whole Blood 141 mg/dL (75-99)
[2019-12-10] MEDS: INSULIN ASPART (NovoLOG) 100 UNIT/ML VIAL SQ SCH ×4 (06:52→21:32)
--- NOTE | 2019-12-10 07:21 | PN ---
PROGRESS NOTE DATE OF SERVICE: 12/09/2019 This is a 74-year-old woman who was admitted with unresponsive and acute respiratory failure, possibly had COPD exacerbation, patient mechanically ventilated. The patient had some pupil irregularity, a stroke was strongly suspected but however with conservative management patient did improve slightly and currently the patient is extubated. Patient is on BiPAP at this time but the patient is confused, also. Dr. Bourne is following the patient closely. The most recent chest x-ray done today which was evaluated personally by me showed some bibasilar lesions, bibasilar opacities, possibly indicating pneumonia and Cardiology has also seen for indeterminate troponins. The patient also had chronic atrial fibrillation. The patient will be closely monitored. The repeat troponin was found to be 0.041, phosphorus is 0.90 also. PAST MEDICAL HISTORY: Reviewed. REVIEW OF SYSTEM: Could not be taken, the patient is on BiPAP. CURRENT MEDICATIONS: Reviewed and include: 1. DuoNeb q.i.d. and p.r.n. 2. Eliquis 5 mg p.o. b.i.d. 3. Zithromax 500 mg daily. 4. Pulmicort 1 mg b.i.d. 5. Rocephin 1 g daily. 6. Cardizem CD 60 mg t.i.d. 7. Perforomist 20 mg b.i.d. 8. Hyzaar. 9. NovoLog. 10.Solu-Medrol 60 IV q.6. 11.Protonix. 12.Propofol. PHYSICAL EXAM: Patient is conscious. Pulse is 122, blood pressure 133/66, respiration 20, temperature 98.7, pulse ox 94% on 4 L. HEENT: Conjunctivae normal. NECK: No jugular venous distension. CARDIOVASCULAR SYSTEMS: S1, S2, muffled. RESPIRATION: Breath sounds are diminished at the bases. Breathing efforts are markedly increased. Bilateral scattered rhonchi and expiratory wheezing and crackles. ABDOMEN: Soft, nontender. No mass palpable. LEGS: No edema, no swelling. NERVOUS SYSTEM: Higher functions as mentioned, moves all four limbs. LYMPHATICS: No lymph node enlargement in the neck or axillae. SKIN: No ulcer, bleeding.. JOINTS: No active deforming arthropathy. LABS: WBC is 16.4 and sodium 130, potassium 3.3. Other labs are noted. ASSESSMENT: 1. Chronic obstructive pulmonary disease acute exacerbation with acute bibasilar pneumonia, possibly gram-negative with possible sepsis with acute hypoxic respiratory failure, present on admission, status post mechanical ventilation. 2. Change in mental status, metabolic encephalopathy, possibly secondary to sepsis and hypoxia. 3. Troponin 0.05 indeterminate, rule out myocardial infarction. 4. Increased WBC. 5. History of right lower lung lobectomy. 6. History of right upper lobe atelectasis and possible bronchial stenosis. 7. Hypertension. 8. History of chronic obstructive pulmonary disease. 9. History atrial fibrillation, chronic rate controlled. 10.History of pulmonary hypertension. 11.History of chronic hypoxic respiratory failure. 12.History of hyperlipidemia. 13.History of sleep apnea. 14.History of hernia repair. 15.History of anterior abdominal wall incision. 16.Incisional hernia. 17.History of degenerative joint disease. 18.Obesity with body mass index of 40.4. 19.Hypophosphatemia. RECOMMENDATION: In this 74-year-old woman who presented with multiple complex medical issues, will continue the current management and symptomatic treatment. Will continue with the intensive bronchodilator treatment, otherwise as well as antibiotic treatment as well steroids. Will closely monitor. The exact etiology of unresponsiveness is unknown at this time, most likely due to combination of active stroke but thought to be unlikely at this time. Also, the son reports to me that the patient apparently was not feeling well for the past couple of days and the patient did not wake up the day of transfer to [facility]. The has got "vision abnormalities" could not see the patient well and waited for some time before the patient woke up that day which never happened according to the son. In any case, will continue to monitor. The patient is still monitored in ICU. Prognosis extremely guarded and Cardiology consultation is also underway. Will follow closely with Dr. Bourne. Further recommendations to follow.. Will continue to monitor. MMODL / IJN: [id number] /
[2019-12-10] MEDS: FORMOTEROL FUMARATE 20 MCG/2 ML NEBU INHALATION SCH ×2 (07:52→20:15)
[2019-12-10] MEDS: BUDESONIDE 1 MG/2 ML NEBU INHALATION SCH ×2 (07:52→20:15)
[2019-12-10] MEDS: IPRATROPIUM-ALBUTEROL 3 ML NEB INHALATION SCH ×4 (07:52→20:15)
[2019-12-10] MEDS: SODIUM CHLORIDE 0.9% 1,000 ML IV SCH ×2 (09:01→21:24)
[2019-12-10] MEDS: APIXABAN 5 MG TAB PO SCH ×2 (09:02→21:23)
[2019-12-10] MEDS: PANTOPRAZOLE 40 MG/10 ML VIAL IVP SCH (09:02)
[2019-12-10] MEDS: LOSARTAN-HCTZ 50-12.5 MG 1 EACH TAB PO SCH (09:02)
[2019-12-10] MEDS: DILTIAZEM ORAL 60 MG TAB PO SCH ×3 (09:02→21:23)
[2019-12-10] MEDS: NYSTATIN 100,000 UNIT/GM POWD 15 GM TOPICAL SCH ×2 (09:02→21:24)
--- NOTE | 2019-12-10 09:43 | XR ---
EXAMINATION TYPE: XR chest 1V portable DATE OF EXAM: 12/10/2019 COMPARISON: 12/09/2019 HISTORY: Endotracheal and enteric tube removal. TECHNIQUE: Single frontal view of the chest is obtained. FINDINGS: Right apical lateral proximal scarring. Enlarged cardiac mediastinal silhouette. Right sub clavian central venous catheter is unchanged. Bibasilar opacities appear similar from the prior. Trac e bilateral pleural effusions. IMPRESSION: Stable bibasilar opacities and enlarged cardiomediastinal silhouette. Trace bilateral pl eural effusions are also stable. The enteric and endotracheal tube.
--- NOTE | 2019-12-10 11:44 | PN ---
PROGRESS NOTE A 74-year-old lady who is admitted to hospital with symptoms of shortness of breath and mental status changes, patient has known COPD and on her initial presentation, she was in respiratory failure and had to be intubated. She had been extubated since yesterday, feeling much better, appears alert, oriented, and her shortness of breath has improved. She had elevated troponin for which Cardiology has been consulted. She had 2 troponins. There is no definite pattern to them. The troponin elevation seems to be related to hypoxia. An echocardiogram showed normal LV systolic function with trace mitral and mild tricuspid regurgitation. PHYSICAL EXAMINATION: On exam, patient is comfortable at rest. Blood pressure is 167/66, respiratory rate is 18. Chest exam reveals diffuse bilateral rhonchi. Heart exam reveals first and second heart sounds. No gallop. No murmur. Abdomen is soft. Exam of extremities did not reveals trace edema. Peripheral pulses are felt. ASSESSMENT: 1. Elevated troponin secondary to hypoxia and respiratory failure. 2. Permanent atrial fibrillation with controlled ventricular rate. PLAN: The patient will continue with current medications including Cardizem for rate control and Eliquis. Does not require evaluation for the elevated troponin at this time. However, on discharge once the respiratory status becomes stable, we may consider performing a stress test on her. MMODL / IJN: [id number] /
[2019-12-10 12:09] LABS: Glucose,Whole Blood 146 mg/dL (75-99)
--- NOTE | 2019-12-10 12:39 | P.PN ---
Subjective Progress Note Date: 12/10/19 Principal diagnosis: Acute hypoxic/hypercapnic respiratory failure secondary to COPD exacerbation. On today's evaluation of 12/09 2019 and seeing the patient for a follow-up. The p atирина is fully alert and awake this morning. Note that after my departure from the ICU, I was contacted by the nursing staff indicating that the patient was fully awake and alert and she was following commands. This was exciting news as the patient was completely unresponsive for a few hours after she arrived to our intensive care unit. The same as for today. The patient is wide awake. She is following commands and answering questions and she is even writing. The patient is on assist control mode of ventilation. At peak airway pressures dropped down to 24. She is on a rate of 16 with a tidal volume of 375 and an FiO2 of 40% with a PEEP of 5. Chest x-ray shows no significant abnormalities. She remains hemodynamically stable. Pulse ox is 97% on room air. She is still bronchospas tic and wheezy. No fever. No chills. No neck stiffness. No significant swelling lower extremities. No cardiac arrhythmias have been noted. The blood gases from today shows a pH of 7.46, with a pCO2 of 56 and pO2 of 130. The patient is currently intubated by #7 orotracheal tube. She remains on bronchodilators per she remains on systemic steroids. Her bronchospasm and wheezing has improved considerably. Patient was reevaluated today on 12/10/2019, patient was extubated yesterday, she seems to be doing quite well. She is hemodynamically stable, she is on few liters nasal cannula with O2 saturation in the 95-97%. Patient is sitting at a bedside chair, comfortable, all family members at bedside. WBC count is 11.5 hemoglobin is 11.8 electrolytes are normal renal profile is normal bicarb is 39. Chest x-ray showed stable bibasilar atelectasis. Trace of bilateral pleural effusions noted Objective - Vital Signs Vital signs: Vital Signs Temp 97 F L 12/10/19 08:00 Pulse 88 12/10/19 12:02 Resp 22 12/10/19 11:00 BP 107/53 12/09/19 08:30 Pulse Ox 96 12/10/19 11:00 Intake & Output 12/09/19 12/10/19 12/10/19 18:59 06:59 18:59 Intake Total 1211.358 972 405 Output Total 550 470 170 Balance 661.358 502 235 Weight 107.3 kg Intake: IV 1147 972 405 Potassium Chloride 20 meq 100 In Water For Injection 1 100ml.bag @ 50 mls/hr IVPB Q2H [facility] Rx#: [id number] Potassium Phosphate 10 200 mmol In Sodium Chloride 0 .9% 100 ml @ 50 mls/hr IV Q2H [facility] Rx#:[id number] Pressure Bag 72 72 30 Sodium Chloride 0.9 675 900 375 cefTRIAXone 1 gm In 100 Sodium Chloride 0.9% 50 ml @ 100 mls/hr IVPB Q24H [facility] Rx#:[id number] Intake, IV Titration 4.358 Amount Norepinephrine 32 mg In 4.358 Sodium Chloride 0.9% 218 ml @ 0.05 MCG/KG/MIN 2. 658 mls/hr IV .Q24H [facility] Rx#:[id number] Other 60 Output: Urine 550 470 170 Other: Voiding Method Indwelling Catheter Indwelling Catheter Indwelling Catheter ABP, PAP, CO, CI - Last Documented Arterial Blood Pressure 186/68 - Exam Physical Exam: Revealed a 74-year-old female obese in no distress. Head: Atraumatic, normocephalic. HEENT:[Neck is supple.] [No neck masses.] [No thyromegaly.] [No JVD.] PERRLA, EOMI, no icterus Chest: [Symmetrical chest expansion, diminished breath sounds at the bases minimal wheezing on forced expiratory maneuver. Cardiac Exam: [Normal S1 and S2, no S3 gallop, no murmur.] Abdomen: [Obese, Soft, nontender, no megaly, no rebound, no guarding, normal bowel sounds.] Extremities: [No clubbing, no edema, no cyanosis.] Neurological Exam: [No focal neurologic deficit.] Alert oriented 3. Psychiatric: Normal mood affect and normal mental status examination. Skin: No rashes. Lymphatics: No lymphadenopathy - Labs CBC & Chem 7: 12/10/19 04:50 12/10/19 04:50 Labs: Abnormal Lab Results - Last 24 Hours (Table) 12/09/19 12/09/19 12/09/19 Range/Units 04:36 16:45 20:29 WBC (3.8-10.6) k/uL Neutrophils # (1.3-7.7) k/uL Lymphocytes # (1.0-4.8) k/uL Carbon Dioxide (22-30) mmol/L BUN (7-17) mg/dL Glucose (74-99) mg/dL POC Glucose (mg/dL) 134 H 152 H (75-99) mg/dL Troponin I 0.041 H* (0.000-0.034) ng/mL 12/10/19 12/10/19 12/10/19 Range/Units 04:50 04:50 06:44 WBC 11.5 H (3.8-10.6) k/uL Neutrophils # 10.8 H (1.3-7.7) k/uL Lymphocytes # 0.4 L (1.0-4.8) k/uL Carbon Dioxide 39 H (22-30) mmol/L BUN 37 H (7-17) mg/dL Glucose 147 H (74-99) mg/dL POC Glucose (mg/dL) 141 H (75-99) mg/dL Troponin I (0.000-0.034) ng/mL 12/10/19 Range/Units 12:08 WBC (3.8-10.6) k/uL Neutrophils # (1.3-7.7) k/uL Lymphocytes # (1.0-4.8) k/uL Carbon Dioxide (22-30) mmol/L BUN (7-17) mg/dL Glucose (74-99) mg/dL POC Glucose (mg/dL) 146 H (75-99) mg/dL Troponin I (0.000-0.034) ng/mL Microbiology - Last 24 Hours (Table) 12/08/19 21:00 Gram Stain - Preliminary Sputum Sputum Culture - Preliminary 12/08/19 13:44 Blood Culture - Preliminary Blood No Growth after 24 hours Assessment and Plan Assessment: Impression: Acute hypoxic and hypercapnic respiratory failure secondary to acute exacerbation of COPD Severe COPD, FEV1 is 37%. Acute CO2 narcosis, resolved. Chronic atrial fibrillation. Obstructive sleep apnea syndrome. Benign essential hypertension. Hyperlipidemia. Recommendation: Continue present meds including bronchodilators, Continue steroids, Continue oxygen and titrate accordingly. Continue DuoNeb. Continue oral Eliquis. Patient was extubated successfully yesterday. We'll continue to monitor in the ICU for the next 24 hours. Possibly transferred to a regular medical floor in the next 24 hours. Consider BiPAP at home. We'll continue to follow. Time with Patient: Less than 30
--- NOTE | 2019-12-10 15:36 | PN ---
PROGRESS NOTE DATE OF SERVICE: 12/10/2019 This 74-year-old woman admitted with significant change in mental status, thought to have COPD acute exacerbation, acute hypoxic respiratory failure. The stroke was suspected initially, but there was no evidence of any stroke in the CAT scan. Patient closely monitored. Multiple consultants including Cardiology following the patient closely. A 2D echo with Doppler was also done because of the indeterminate troponins and the echo showed ejection fraction normal at 50% to 60% and mild valvular abnormalities. PAST MEDICAL HISTORY: Reviewed. REVIEW OF SYSTEMS: CARDIOVASCULAR SYSTEM: As mentioned earlier. RESPIRATORY: As mentioned earlier. GI: No nausea. : As mentioned earlier. CURRENT MEDICATIONS: Reviewed and include: 1. DuoNeb q.i.d. and p.r.n. 2. Eliquis 5 mg p.o. b.i.d. 3. Zithromax 500 mg. p.o. daily. 4. Pulmicort 1 mg b.i.d. 5. Rocephin 1 g daily. 6. Cardizem 60 mg t.i.d. 7. Perforomist 20 mcg b.i.d. 8. Hyzaar. 9. NovoLog. 10.Solu-Medrol 60 IV q.8. 11.Replacement protocols Mycostatin, Protonix. PHYSICAL EXAM: Patient is alert oriented x3. Pulse is 112, blood pressure 150/70, respiration 22, temperature normal, pulse ox 97% on 2 L nasal cannula. HEENT: Conjunctivae normal. Oral mucosa moist. NECK: No jugular venous distention. No lymph node enlargement. CARDIOVASCULAR SYSTEM: S1, S2, muffled. RESPIRATION: Breath sounds diminished at the bases, a few scattered rhonchi, no crackles, expiratory wheezing. ABDOMEN: Soft, nontender. No mass palpable. LEGS: No edema. No swelling. LABS: WBC is 11.2, hemoglobin is 11.8, sodium 140, potassium 40, Accu-Cheks are noted. Cultures are negative so far. Most recent chest x-ray which was personally reviewed by me showed increased bronchovascular vascular markings, possibly on the right side, right more than the left. ASSESSMENT: 1. Chronic obstructive pulmonary disease exacerbation with bibasilar pneumonia, right more than left, possibly gram-negative with sepsis with acute hypoxic respiratory failure present on admission, status post mechanical ventilation. 2. Change in mental status, metabolic encephalopathy, possibly secondary to sepsis and hypoxia. 3. Troponin 0.05, indeterminate. 4. Increased WBC. 5. History of right lower lobe lung lobectomy. 6. History of right upper lobe atelectasis and possible bronchial stenosis previously in the CAT scan. 7. Hypertension. 8. History of chronic obstructive pulmonary disease. 9. History atrial fibrillation, chronic rate controlled. 10.History of pulmonary hypertension. 11.History of chronic hypoxic respiratory failure. 12.History of hyperlipidemia. 13.History of sleep apnea. 14.History of hernia repair. 15.History of anterior abdominal wall incision hernia history. 16.History of degenerative joint disease. 17.Obesity with body mass index of 40.4. 18.Hypophosphatemia. 19.NO CODE with the instructions. RECOMMENDATION AND DISCUSSION: In this 74-year-old woman who presented with multiple complex medical issues, will monitor the patient closely. Continue with the current management and symptomatic treatment. Continue wit6h the bronchodilators. Continue with combination of Zithromax and Rocephin. Cultures are negative so far. Continue with the IV steroids. Dr. Welch is following the patient closely, otherwise. The phosphorus has returned to normal. Further recommendations to follow. Increase ambulation. MMODL / IJN: [id number] /
[2019-12-10] MEDS: AZITHROMYCIN 500 MG TAB PO SCH (16:31)
[2019-12-10 17:17] LABS: Glucose,Whole Blood 194 mg/dL (75-99)
[2019-12-10 18:44] LABS: Hemoglobin A1C 5.3 % (4.0-6.0)
[2019-12-10] MEDS ORDERED: FUROSEMIDE 10 MG/ML 4 ML VIAL IV STA (18:48)
[2019-12-10 21:31] LABS: Glucose,Whole Blood 222 mg/dL (75-99)
[2019-12-11 04:54] LABS: Basophils % (A) 0 %; Eosinophils % (A) 0 %; HCT 36.5 % (34.0-46.0); Lymphocytes # (A) 0.3 k/uL (1.0-4.8); Lymphocytes % (A) 4 %; MCH 31.4 pg (25.0-35.0); MCHC 32.8 g/dL (31.0-37.0); MCV 95.9 fL (80.0-100.0); Mean Platelet Volume 7.1; Monocytes # (A) 0.2 k/uL (0-1.0); Monocytes % (A) 2 %; Neutrophils # (A) 8.2 k/uL (1.3-7.7); Neutrophils % (A) 93 %; Platelet Count 194 k/uL (150-450); RBC 3.81 m/uL (3.80-5.40); RDW 12.9 % (11.5-15.5); WBC 8.8 k/uL (3.8-10.6)
[2019-12-11 05:03] LABS: Calcium 8.9 mg/dL (8.4-10.2); Phosphorus 3.1 mg/dL (2.5-4.5); Potassium 3.3 mmol/L (3.5-5.1)
[2019-12-11] MEDS: POTASSIUM CHLORIDE ER 20 MEQ TAB.ER PO SCH ×2 (05:57→22:53)
[2019-12-11] MEDS: POTASSIUM CHLORIDE 20 MEQ in WATER FOR INJECTION 1 100ML.BAG IVPB SCH ×2 (06:09→08:19)
[2019-12-11] MEDS: INSULIN ASPART (NovoLOG) 100 UNIT/ML VIAL SQ SCH ×4 (06:33→21:03)
[2019-12-11 06:36] LABS: Glucose,Whole Blood 162 mg/dL (75-99)
[2019-12-11] MEDS: BUDESONIDE 1 MG/2 ML NEBU INHALATION SCH ×2 (07:36→21:32)
[2019-12-11] MEDS: FORMOTEROL FUMARATE 20 MCG/2 ML NEBU INHALATION SCH ×2 (07:36→21:33)
[2019-12-11] MEDS: IPRATROPIUM-ALBUTEROL 3 ML NEB INHALATION SCH ×4 (07:36→21:33)
[2019-12-11] MEDS: PANTOPRAZOLE 40 MG TABLET PO SCH (08:18)
[2019-12-11] MEDS: APIXABAN 5 MG TAB PO SCH ×2 (08:18→21:04)
[2019-12-11] MEDS: DILTIAZEM ORAL 60 MG TAB PO SCH ×3 (08:18→21:04)
[2019-12-11] MEDS: LOSARTAN-HCTZ 50-12.5 MG 1 EACH TAB PO SCH (08:19)
[2019-12-11] MEDS: methylPREDNISolone SOD SUCCI 125 MG/2 ML VIAL IV SCH ×3 (08:19→23:52)
[2019-12-11] MEDS: SODIUM CHLORIDE 0.9% 1,000 ML IV SCH (08:20)
[2019-12-11] MEDS: NYSTATIN 100,000 UNIT/GM POWD 15 GM TOPICAL SCH ×2 (08:26→21:04)
--- NOTE | 2019-12-11 08:36 | XR ---
EXAMINATION TYPE: XR chest 1V portable DATE OF EXAM: 12/11/2019 Comparison: 12/10/2019 Clinical History: 74-year-old female Tube placement Findings: Heart mildly enlarged. Patchy right basilar opacity remains. Right subclavian CVC tip in the cavoatri al junction region. Mild hyperinflation may reflect underlying COPD. Impression: 1. Continued mild cardiomegaly. 2. Possible background of COPD. 3. Continued patchy right basilar atelectasis and/or infiltrate.
[2019-12-11 11:51] LABS: Glucose,Whole Blood 216 mg/dL (75-99)
--- NOTE | 2019-12-11 12:34 | PN ---
PROGRESS NOTE DATE OF SERVICE: 12/11/2019 This 74-year-old woman is admitted with significant COPD acute exacerbation, hypoxia, is being closely monitored at this time. The patient also had significant shortness of breath and the patient is using BiPAP at nighttime and Dr. Welch is planning possibly CPAP on discharge at this time. The patient is on IV steroids and IV antibiotics. PAST MEDICAL HISTORY: Reviewed. REVIEW OF SYSTEMS: CARDIOVASCULAR: As mentioned earlier. RESPIRATORY: As mentioned earlier. GI: As mentioned earlier. : No dysuria. NERVOUS SYSTEM: As mentioned earlier. CURRENT MEDICATIONS: Current medications are reviewed and include: 1. DuoNeb q.i.d. and p.r.n. 2. Eliquis 5 mg p.o. b.i.d. 3. Zithromax 500 mg p.o. daily. 4. Pulmicort 1 mg b.i.d. 5. Rocephin 1 gram daily. 6. Cardizem 60 mg p.o. t.i.d. 7. Perforomist, that is formoterol, 20 mcg b.i.d. 8. Hyzaar 50/12.5 two tablets daily. 9. Solu-Medrol 60 IV q.8. 10.Replacement protocol. 11.Mycostatin. 12.Protonix. PHYSICAL EXAMINATION: The patient is alert and oriented x3. Pulse 73, blood pressure 143/79, respiration 26, temperature 98.1, pulse ox 98% on room air. HEENT: Conjunctivae normal. NECK: No jugular venous distention. CARDIOVASCULAR: S1, S2 muffled. RESPIRATORY: Breath sounds diminished at the bases. Scattered rhonchi and crackles. ABDOMEN: Soft, nontender. No mass palpable. LEGS: No edema, no swelling. NERVOUS SYSTEM: Higher function as mentioned. Moves all 4 limbs. Mild diffuse weakness. LYMPHATICS: No lymphadenopathy of the neck, axillae or groin. SKIN: No ulcer, rash or bleeding. JOINTS: No active deforming arthropathy. LABS: CBC within normal. Sodium 140, potassium 3.3. CO2 is 40. ASSESSMENT: 1. Chronic obstructive pulmonary disease acute exacerbation with acute bibasilar pneumonia possibly gram-negative with possible sepsis with acute hypoxic hypercarbic respiratory failure, present on admission, status post mechanical ventilation. 2. Change in mental status, metabolic encephalopathy, possibly secondary to sepsis and hypoxia. 3. Troponin 0.05 indeterminate. 4. Hypokalemia. 5. Increased WBC. 6. History of right lower lobe lobectomy history. 7. History of right upper lobe atelectasis and possible bronchial stenosis previously. 8. Hypertension. 9. History of chronic obstructive pulmonary disease. 10.History atrial fibrillation, chronic, rate controlled. 11.History of pulmonary hypertension. 12.History of chronic hypoxic respiratory failure. 13.History of hyperlipidemia. 14.History of sleep apnea. 15.History of hernia repair. 16.History of anterior abdominal incisional hernia. 17.History of degenerative joint disease. 18.Obesity with body mass index of 40.4. 19.Hypophosphatemia. RECOMMENDATIONS AND DISCUSSION: I recommend to continue current medications, continue with monitoring and symptomatic treatment. Otherwise, at this time I recommend potassium supplementation. Continue with IV steroids, IV antibiotics. BiPAP at night. CPAP at the time of discharge per Pulmonary. Prognosis guarded because of multiple complex medical issues. Further recommendations to follow. MMODL / IJN: [id number] /
--- NOTE | 2019-12-11 13:15 | PN ---
PROGRESS NOTE Renuka is a 74-year-old lady who was admitted to hospital with respiratory insufficiency and has atrial fibrillation. Her heart rate is well controlled and she is currently on Eliquis for anticoagulation. Her blood pressures were poorly controlled and the Hyzaar dose is being increased. PHYSICAL EXAMINATION: On exam, heart rate is 80 beats per minute. Blood pressure is 130/62, respiratory rate is 18. Chest exam reveals diminished air entry with diffuse rhonchi. Heart exam reveals first and second heart sounds, irregular rhythm. Exam of extremities reveals mild edema. LABS: Labs show that the hemoglobin is 12, platelet count is 190, creatinine is 0.9, potassium is 3.3. ASSESSMENT: 1. Permanent atrial fibrillation with controlled ventricular rate. 2. Chronic obstructive pulmonary disease exacerbation. 3. Hypertension. PLAN: Continue current medications. Supplement the potassium. MMODL / IJN: [id number] /
--- NOTE | 2019-12-11 13:32 | P.PN ---
Subjective Progress Note Date: 12/11/19 Principal diagnosis: Acute hypoxic/hypercapnic respiratory failure secondary to COPD exacerbation. On today's evaluation of 12/09 2019 and seeing the patient for a follow-up. The p atient is fully alert and awake this morning. Note that after my departure from the ICU, I was contacted by the nursing staff indicating that the patient was fully awake and alert and she was following commands. This was exciting news as the patient was completely unresponsive for a few hours after she arrived to our intensive care unit. The same as for today. The patient is wide awake. She is following commands and answering questions and she is even writing. The patient is on assist control mode of ventilation. At peak airway pressures dropped down to 24. She is on a rate of 16 with a tidal volume of 375 and an FiO2 of 40% with a PEEP of 5. Chest x-ray shows no significant abnormalities. She remains hemodynamically stable. Pulse ox is 97% on room air. She is still bronchospas tic and wheezy. No fever. No chills. No neck stiffness. No significant swelling lower extremities. No cardiac arrhythmias have been noted. The blood gases from today shows a pH of 7.46, with a pCO2 of 56 and pO2 of 130. The patient is currently intubated by #7 orotracheal tube. She remains on bronchodilators per she remains on systemic steroids. Her bronchospasm and wheezing has improved considerably. Patient was reevaluated today on 12/10/2019, patient was extubated yesterday, she seems to be doing quite well. She is hemodynamically stable, she is on few liters nasal cannula with O2 saturation in the 95-97%. Patient is sitting at a bedside chair, comfortable, all family members at bedside. WBC count is 11.5 hemoglobin is 11.8 electrolytes are normal renal profile is normal bicarb is 39. Chest x-ray showed stable bibasilar atelectasis. Trace of bilateral pleural effusions noted Reevaluated today on 12/11/2019. Patient remains in the ICU, had to be placed on BiPAP last night, received a dose of Lasix 40 mg IV push last night for increased shortness of breath and crackles based on the nurse taking care of the patient. Today the patient is at at bedside chair, on nasal cannula, in no distress. Feeling better, continues to have some cough and wheezing. Gets short of breath easily. No chest pain no fever no chills no hemoptysis no nausea no vomiting no abdominal pain. Labs were basically unremarkable including CBC and basic metabolic profile. Renal profile showed BUN of 41 creatinine 0.92. Chest x-ray showed mostly cardiomegaly and right basilar atelectasis or infiltrate Objective - Vital Signs Vital signs: Vital Signs Temp 96.9 F L 12/11/19 12:00 Pulse 94 12/11/19 12:00 Resp 23 12/11/19 12:00 BP 140/60 12/11/19 12:00 Pulse Ox 95 12/11/19 12:00 Intake & Output 12/10/19 12/11/19 12/11/19 18:59 06:59 18:59 Intake Total 972 1222 486 Output Total 445 2925 315 Balance 527 -1703 171 Weight 105.8 kg Intake: IV 972 972 486 Pressure Bag 72 72 36 Sodium Chloride 0.9 900 900 450 Oral 250 Output: Urine 445 2925 315 Other: Voiding Method Indwelling Catheter Indwelling Catheter Indwelling Catheter ABP, PAP, CO, CI - Last Documented Arterial Blood Pressure 131/62 - Exam Physical Exam: Revealed a 74-year-old female obese in no distress. On few liters nasal cannula. Head: Atraumatic, normocephalic. HEENT:[Neck is supple.] [No neck masses.] [No thyromegaly.] [No JVD.] PERRLA, EOMI, no icterus Chest: [Symmetrical chest expansion, crackles and rhonchi and wheezes on forced expiratory maneuver bilaterally. Cardiac Exam: [Normal S1 and S2, no S3 gallop, no murmur.] Abdomen: [Obese, Soft, nontender, no megaly, no rebound, no guarding, normal bowel sounds.] Extremities: [No clubbing, no edema, no cyanosis.] Neurological Exam: [No focal neurologic deficit.] Alert oriented 3. Psychiatric: Normal mood affect and normal mental status examination. Skin: No rashes. Lymphatics: No lymphadenopathy - Labs CBC & Chem 7: 12/11/19 04:50 12/11/19 05:45 Labs: Abnormal Lab Results - Last 24 Hours (Table) 12/10/19 12/10/19 12/11/19 Range/Units 17:15 21:29 04:50 Neutrophils # 8.2 H (1.3-7.7) k/uL Lymphocytes # 0.3 L (1.0-4.8) k/uL Potassium (3.5-5.1) mmol/L Chloride (98-107) mmol/L Carbon Dioxide (22-30) mmol/L BUN (7-17) mg/dL Glucose (74-99) mg/dL POC Glucose (mg/dL) 194 H 222 H (75-99) mg/dL 12/11/19 12/11/19 12/11/19 Range/Units 04:50 05:45 06:31 Neutrophils # (1.3-7.7) k/uL Lymphocytes # (1.0-4.8) k/uL Potassium 3.3 L (3.5-5.1) mmol/L Chloride 95 L (98-107) mmol/L Carbon Dioxide 42 H* 40 H (22-30) mmol/L BUN 41 H (7-17) mg/dL Glucose 163 H (74-99) mg/dL POC Glucose (mg/dL) 162 H (75-99) mg/dL 12/11/19 Range/Units 11:50 Neutrophils # (1.3-7.7) k/uL Lymphocytes # (1.0-4.8) k/uL Potassium (3.5-5.1) mmol/L Chloride (98-107) mmol/L Carbon Dioxide (22-30) mmol/L BUN (7-17) mg/dL Glucose (74-99) mg/dL POC Glucose (mg/dL) 216 H (75-99) mg/dL Microbiology - Last 24 Hours (Table) 12/08/19 21:00 Gram Stain - Final Sputum Sputum Culture - Final 12/08/19 13:44 Blood Culture - Preliminary Blood No Growth after 48 hours Assessment and Plan Assessment: Impression: Acute hypoxic and hypercapnic respiratory failure secondary to acute exacerbatio n of COPD Severe COPD, FEV1 is 37%. Acute CO2 narcosis, resolved. Chronic atrial fibrillation. Obstructive sleep apnea syndrome. Benign essential hypertension. Hyperlipidemia. Recommendation: Continue bronchodilators Continue steroids, Continue oxygen and titrate accordingly. Via nasal cannula, patient is on home oxygen. Use BiPAP as needed. Continue DuoNeb. Continue oral Eliquis. Can transfer patient to a monitor bed on [facility] today if a bed is available. Consider BiPAP at home. Not quite ready for discharge planning We'll continue to follow. Time with Patient: Less than 30
[2019-12-11] MEDS: AZITHROMYCIN 500 MG TAB PO SCH (16:57)
[2019-12-11 17:09] LABS: Glucose,Whole Blood 154 mg/dL (75-99)
[2019-12-11] MEDS ORDERED: LORazepam 2 MG/ML INJ IV STA (17:36)
[2019-12-11 20:49] LABS: Glucose,Whole Blood 158 mg/dL (75-99)
[2019-12-12] MEDS: SODIUM CHLORIDE 0.9% 1,000 ML IV SCH ×2 (01:57→17:17)
[2019-12-12 04:59] LABS: Calcium 9.3 mg/dL (8.4-10.2); Potassium 3.7 mmol/L (3.5-5.1)
[2019-12-12 05:31] LABS: Basophils # (A) 0.1 k/uL (0-0.2); Basophils % (A) 1 %; Eosinophils % (A) 0 %; HCT 35.9 % (34.0-46.0); HGB 11.4 gm/dL (11.4-16.0); Lymphocytes # (A) 0.2 k/uL (1.0-4.8); Lymphocytes % (A) 3 %; MCH 30.7 pg (25.0-35.0); MCHC 31.9 g/dL (31.0-37.0); MCV 96.4 fL (80.0-100.0); Mean Platelet Volume 6.7; Monocytes # (A) 0.3 k/uL (0-1.0); Monocytes % (A) 3 %; Neutrophils # (A) 7.7 k/uL (1.3-7.7); Neutrophils % (A) 93 %; Platelet Count 222 k/uL (150-450); RBC 3.72 m/uL (3.80-5.40); RDW 12.9 % (11.5-15.5); WBC 8.3 k/uL (3.8-10.6)
[2019-12-12 06:41] LABS: Glucose,Whole Blood 153 mg/dL (75-99)
[2019-12-12] MEDS: INSULIN ASPART (NovoLOG) 100 UNIT/ML VIAL SQ SCH ×4 (06:52→21:16)
[2019-12-12] MEDS: IPRATROPIUM-ALBUTEROL 3 ML NEB INHALATION SCH ×4 (06:59→19:38)
[2019-12-12] MEDS: FORMOTEROL FUMARATE 20 MCG/2 ML NEBU INHALATION SCH ×2 (06:59→19:38)
[2019-12-12] MEDS: BUDESONIDE 1 MG/2 ML NEBU INHALATION SCH ×2 (06:59→19:38)
--- NOTE | 2019-12-12 07:20 | XR ---
EXAMINATION TYPE: XR chest 1V portable DATE OF EXAM: 12/12/2019 COMPARISON: 12/11/2019 HISTORY: Shortness of breath TECHNIQUE: Single frontal view of the chest is obtained. FINDINGS: Persistent patchy right basilar airspace disease. Right-sided subclavian approach central venous catheter has been removed. Deformity of the posterior right fifth rib is again noted. New line ar atelectasis of the left midlung. Large cardiac mediastinal silhouette and enlargement of the main pulmonary arteries are stable. Underlying pulmonary arterial hypertension is suspected. IMPRESSION: Removal of the right central venous catheter. Similar right basilar airspace disease and new linear left midlung atelectasis.
[2019-12-12] MEDS: APIXABAN 5 MG TAB PO SCH ×2 (10:02→22:04)
[2019-12-12] MEDS: PANTOPRAZOLE 40 MG TABLET PO SCH (10:02)
[2019-12-12] MEDS: LOSARTAN-HCTZ 50-12.5 MG 1 EACH TAB PO SCH (10:04)
[2019-12-12] MEDS: DILTIAZEM ORAL 60 MG TAB PO SCH ×3 (10:05→22:04)
--- NOTE | 2019-12-12 12:41 | PN ---
PROGRESS NOTE A 74-year-old lady who was admitted to hospital with respiratory failure. She is feeling much better. Remains in atrial fibrillation with controlled ventricular rate. PHYSICAL EXAMINATION: On exam today, comfortable at rest. Heart rate is 70 beats per minute. Blood pressure is 150/70. Respiratory rate 18. Chest exam reveals diminished air entry with occasional rhonchi. Heart exam reveals first and second heart sounds, irregular rhythm. Abdomen is soft. Exam of extremities did not reveal any edema. LABS: Lab show a hemoglobin of 11.4, platelet count is 220. Potassium is 3.7. Creatinine is 0.7. ASSESSMENT: Permanent atrial fibrillation with controlled ventricular rate. PLAN: Patient will continue Eliquis 5 b.i.d. and Cardizem 60 t.i.d. along with Hyzaar for blood pressure control. MMODL / IJN: [id number] /
--- NOTE | 2019-12-12 12:52 | P.PN ---
Subjective Progress Note Date: 12/12/19 Principal diagnosis: Acute hypoxic/hypercapnic respiratory failure secondary to COPD exacerbation. On today's evaluation of 12/09 2019 and seeing the patient for a follow-up. The p atient is fully alert and awake this morning. Note that after my departure from the ICU, I was contacted by the nursing staff indicating that the patient was fully awake and alert and she was following commands. This was exciting news as the patient was completely unresponsive for a few hours after she arrived to our intensive care unit. The same as for today. The patient is wide awake. She is following commands and answering questions and she is even writing. The patient is on assist control mode of ventilation. At peak airway pressures dropped down to 24. She is on a rate of 16 with a tidal volume of 375 and an FiO2 of 40% with a PEEP of 5. Chest x-ray shows no significant abnormalities. She remains hemodynamically stable. Pulse ox is 97% on room air. She is still bronchospas tic and wheezy. No fever. No chills. No neck stiffness. No significant swelling lower extremities. No cardiac arrhythmias have been noted. The blood gases from today shows a pH of 7.46, with a pCO2 of 56 and pO2 of 130. The patient is currently intubated by #7 orotracheal tube. She remains on bronchodilators per she remains on systemic steroids. Her bronchospasm and wheezing has improved considerably. Patient was reevaluated today on 12/10/2019, patient was extubated yesterday, she seems to be doing quite well. She is hemodynamically stable, she is on few liters nasal cannula with O2 saturation in the 95-97%. Patient is sitting at a bedside chair, comfortable, all family members at bedside. WBC count is 11.5 hemoglobin is 11.8 electrolytes are normal renal profile is normal bicarb is 39. Chest x-ray showed stable bibasilar atelectasis. Trace of bilateral pleural effusions noted Reevaluated today on 12/11/2019. Patient remains in the ICU, had to be placed on BiPAP last night, received a dose of Lasix 40 mg IV push last night for increased shortness of breath and crackles based on the nurse taking care of the patient. Today the patient is at at bedside chair, on nasal cannula, in no distress. Feeling better, continues to have some cough and wheezing. Gets short of breath easily. No chest pain no fever no chills no hemoptysis no nausea no vomiting no abdominal pain. Labs were basically unremarkable including CBC and basic metabolic profile. Renal profile showed BUN of 41 creatinine 0.92. Chest x-ray showed mostly cardiomegaly and right basilar atelectasis or infiltrate Reevaluated today on 12/12/2019 patient remains in the ICU, presently on 3 L nasal cannula, she was on BiPAP last night. Patient is feeling better, breathing easier, less cough and less wheezing less shortness of breath. Chest x-ray showed minimal right basilar airspace disease and left midlung atelectasis. Labs are basically unremarkable. Bicarb remains elevated at 41 Objective - Vital Signs Vital signs: Vital Signs Temp 98 F 12/12/19 08:00 Pulse 72 12/12/19 11:36 Resp 23 12/12/19 08:00 BP 151/75 12/12/19 08:00 Pulse Ox 100 12/12/19 08:00 Intake & Output 12/11/19 12/12/19 12/12/19 18:59 06:59 18:59 Intake Total 798 75 Output Total 590 900 300 Balance 208 -900 -225 Weight 106.1 kg Intake: IV 798 75 Pressure Bag 48 Sodium Chloride 0.9 750 75 Output: Urine 590 900 300 Other: Voiding Method Indwelling Catheter Indwelling Catheter Indwelling Catheter ABP, PAP, CO, CI - Last Documented Arterial Blood Pressure 131/62 - Exam Physical Exam: Revealed a 74-year-old female obese in no distress. On 3 L nasal cannula. Head: Atraumatic, normocephalic. HEENT:[Neck is supple.] [No neck masses.] [No thyromegaly.] [No JVD.] PERRLA, EOMI, no icterus Chest: [Symmetrical chest expansion, minimal crackles at the bases no rhonchi and no wheezes. Cardiac Exam: [Normal S1 and S2, no S3 gallop, no murmur.] Abdomen: [Obese, Soft, nontender, no megaly, no rebound, no guarding, normal bowel sounds.] Extremities: [No clubbing, no edema, no cyanosis.] Neurological Exam: [No focal neurologic deficit.] Alert oriented 3. Psychiatric: Normal mood affect and normal mental status examination. Skin: No rashes. Lymphatics: No lymphadenopathy - Labs CBC & Chem 7: 12/12/19 04:28 12/12/19 04:22 Labs: Abnormal Lab Results - Last 24 Hours (Table) 12/11/19 12/11/19 12/12/19 Range/Units 17:07 20:48 04:22 RBC (3.80-5.40) m/uL Lymphocytes # (1.0-4.8) k/uL Chloride 95 L (98-107) mmol/L Carbon Dioxide 41 H* (22-30) mmol/L BUN 40 H (7-17) mg/dL Glucose 172 H (74-99) mg/dL POC Glucose (mg/dL) 154 H 158 H (75-99) mg/dL 12/12/19 12/12/19 Range/Units 04:28 06:39 RBC 3.72 L (3.80-5.40) m/uL Lymphocytes # 0.2 L (1.0-4.8) k/uL Chloride (98-107) mmol/L Carbon Dioxide (22-30) mmol/L BUN (7-17) mg/dL Glucose (74-99) mg/dL POC Glucose (mg/dL) 153 H (75-99) mg/dL Microbiology - Last 24 Hours (Table) 12/08/19 13:44 Blood Culture - Preliminary Blood No Growth after 72 hours 12/08/19 21:00 Gram Stain - Final Sputum Sputum Culture - Final Assessment and Plan Assessment: Impression: Acute hypoxic and hypercapnic respiratory failure secondary to acute exacerbati on of COPD, requiring intubation and mechanical ventilation. But she was extubated uneventfully. Severe COPD, FEV1 is 37%. Acute CO2 narcosis, resolved. Chronic atrial fibrillation. Obstructive sleep apnea syndrome. Benign essential hypertension. Hyperlipidemia. Recommendation: Continue bronchodilators Continue steroids, however cut down the dose to 40 mg IV push every 8 hours. Continue oxygen and titrate accordingly. Via nasal cannula, patient is on home oxygen. Use BiPAP as needed. Continue DuoNeb. Continue oral Eliquis. Can transfer patient to a monitor bed on [facility] today if a bed is available. Consider BiPAP at home. Transfer to a regular medical floor with telemetry. We'll continue to follow. Time with Patient: Less than 30
[2019-12-12] MEDS: NYSTATIN 100,000 UNIT/GM POWD 15 GM TOPICAL SCH (15:49)
[2019-12-12] MEDS: AZITHROMYCIN 500 MG TAB PO SCH (15:49)
[2019-12-12] MEDS: methylPREDNISolone SOD SUCCI 40 MG/ML 1 ML VIAL IV SCH (15:49)
--- NOTE | 2019-12-12 15:56 | P.PN ---
Subjective Progress Note Date: 12/12/19 Principal diagnosis: This is a 74-year-old female who was recently admitted with significant COPD acute exacerbation, hypoxia, status post mechanical ventilation and is being closely monitored. Patient is currently maintained on 4 L of oxygen via nasal cannula and slowly weaning down. Patient currently still using BiPAP at night. Pulmonary is following. Patient is maintained on IV steroids and will continue at this time along with bronchodilators and DuoNeb treatments. Awaiting PT/OT to work with the patient for strength and mobility as she continues to be quite weak requiring assistance. Review of systems: Cardiovascular: No reports of chest pain or palpitations Respiratory: Reports mild shortness of breath and occasional cough GI: No reports of nausea, vomiting, or diarrhea : No reports of dysuria or retention, has indwelling catheter for strict I&O's Active Medications Albuterol/Ipratropium (Duoneb 0.5 Mg-3 Mg/3 Ml Soln) 3 ml INHALATION RT-QID [facility] Last Admin: 12/12/19 11:16 Dose: 3 ml Documented by: Albuterol/Ipratropium (Duoneb 0.5 Mg-3 Mg/3 Ml Soln) 3 ml INHALATION RT-QID PRN PRN Reason: Shortness Of Breath Or Wheezing Last Admin: 12/10/19 03:13 Dose: 3 ml Documented by: Apixaban (Eliquis) 5 mg PO BID [facility] Last Admin: 12/12/19 10:02 Dose: 5 mg Documented by: Azithromycin (Zithromax) 500 mg PO DAILY@1600 [facility] Last Admin: 12/12/19 15:49 Dose: 500 mg Documented by: Budesonide (Pulmicort) 1 mg INHALATION RT-BID [facility] Last Admin: 12/12/19 06:59 Dose: 1 mg Documented by: Diltiazem HCl (Cardizem Oral) 60 mg PO TID [facility] Last Admin: 12/12/19 15:49 Dose: 60 mg Documented by: Formoterol Fumarate (Perforomist) 20 mcg INHALATION RT-BID [facility] Last Admin: 12/12/19 06:59 Dose: 20 mcg Documented by: HCTZ/Losartan Potassium (Hyzaar 50-12.5) 2 each PO DAILY [facility] Last Admin: 12/12/19 10:04 Dose: 2 each Documented by: Ceftriaxone Sodium 1 gm/ (Sodium Chloride) 50 mls @ 100 mls/hr IVPB Q24H [facility] Last Admin: 12/12/19 15:49 Dose: 100 mls/hr Documented by: Sodium Chloride (Saline 0.9%) 1,000 mls @ 75 mls/hr IV .[id number] [facility] Last Admin: 12/12/19 01:57 Dose: Not Given Documented by: Insulin Aspart (Novolog) 0 unit SQ ACHS [facility]; Protocol Last Admin: 12/12/19 15:38 Dose: Not Given Documented by: Methylprednisolone Sodium Succinate (Solu-Medrol) 40 mg IV Q8HR [facility] Last Admin: 12/12/19 15:49 Dose: 40 mg Documented by: Miscellaneous Information (Magnesium Per Protocol) 1 each MISCELLANE DAILY PRN; Protocol PRN Reason: Per Protocol Miscellaneous Information (Phosphorus Per Protocol) 1 each MISCELLANE DAILY PRN; Protocol PRN Reason: Per Protocol Miscellaneous Information (Phosphorus Per Protocol) 1 each MISCELLANE DAILY PRN; Protocol PRN Reason: Per Protocol Nystatin (Mycostatin Powder) 1 applic TOPICAL BID [facility] Last Admin: 12/12/19 15:49 Dose: Not Given Documented by: Pantoprazole Sodium (Protonix) 40 mg PO DAILY [facility] Last Admin: 12/12/19 10:02 Dose: 40 mg Documented by: Objective - Vital Signs Vital signs: Vital Signs Temp 98 F 12/12/19 08:00 Pulse 72 12/12/19 11:36 Resp 23 12/12/19 08:00 BP 151/75 12/12/19 08:00 Pulse Ox 100 12/12/19 08:00 Intake & Output 12/11/19 12/12/19 12/12/19 18:59 06:59 18:59 Intake Total 798 75 Output Total 590 900 300 Balance 208 -900 -225 Weight 106.1 kg Intake: IV 798 75 Pressure Bag 48 Sodium Chloride 0.9 750 75 Output: Urine 590 900 300 Other: Voiding Method Indwelling Catheter Indwelling Catheter Indwelling Catheter ABP, PAP, CO, CI - Last Documented Arterial Blood Pressure 131/62 - Exam Gen: This is a 74-year-old female sitting up in the chair, awake, alert and oriented 3, well-nourished. Temp is 98F, pulse is 73, respirations are 23, blood pressure is 151/75, oxygen saturation is 100% on 4 L via nasal cannula. HEENT: Head is atraumatic, normocephalic. Pupils equal, round. Sclerae is anicteric. NECK: Supple. No JVD. No lymphadenopathy. No thyromegaly. LUNGS: Diminished breath sounds at the bases with a few scattered crackles and rhonchi noted. No intercostal retractions. HEART: S1, S2 are muffled ABDOMEN: Soft. Obese. Bowel sounds are present. No masses. No tenderness. EXTREMITIES: No pedal edema. No calf tenderness. NEUROLOGICAL: Patient is awake, alert and oriented x3. Cranial nerves 2 through 12 are grossly intact. - Labs CBC & Chem 7: 12/12/19 04:28 12/12/19 04:22 Labs: Abnormal Lab Results - Last 24 Hours (Table) 12/11/19 12/11/19 12/12/19 Range/Units 17:07 20:48 04:22 RBC (3.80-5.40) m/uL Lymphocytes # (1.0-4.8) k/uL Chloride 95 L (98-107) mmol/L Carbon Dioxide 41 H* (22-30) mmol/L BUN 40 H (7-17) mg/dL Glucose 172 H (74-99) mg/dL POC Glucose (mg/dL) 154 H 158 H (75-99) mg/dL 12/12/19 12/12/19 Range/Units 04:28 06:39 RBC 3.72 L (3.80-5.40) m/uL Lymphocytes # 0.2 L (1.0-4.8) k/uL Chloride (98-107) mmol/L Carbon Dioxide (22-30) mmol/L BUN (7-17) mg/dL Glucose (74-99) mg/dL POC Glucose (mg/dL) 153 H (75-99) mg/dL Microbiology - Last 24 Hours (Table) 12/08/19 13:44 Blood Culture - Preliminary Blood No Growth after 72 hours Assessment and Plan Assessment: Chronic obstructive pulmonary disease, acute exacerbation with acute bibasilar pneumonia possibly gram-negative with possible sepsis with acute hypoxic hypercarbic respiratory failure, present on admission, status post mechanical ventilation Change in mental status, metabolic encephalopathy, possibly secondary to sepsis and hypoxia Troponin 0.05 indeterminate Hypokalemia Increased WBC History of right lower lobe lobectomy History of right upper lobe atelectasis and possible bronchial stenosis previously Hypertension History of chronic obstructive pulmonary disease History of atrial fibrillation, chronic, rate controlled History of pulmonary hypertension History of chronic hypoxic respiratory failure History of hyperlipidemia History of sleep apnea history of hernia repair history of anterior abdominal incisional hernia history of degenerative joint disease Obesity with a body mass index of 40.4 Hypophosphatemia Recommendations and discussion: Recommend to continue current medications, management, and symptomatic treatment. Pulmonary is following. Continue with IV steroids, bronchodilators, and IV antibiotics in the form of ceftriaxone and oral Zithromax. PT/OT are following. Continue with BiPAP at night. Patient may require CPAP upon discharge. Case management and social media job titles following for discharge planning needs as the patient will be returning home with home care upon discharge. PT/OT following. Due to multiple complex medical issues prognosis is guarded. Further recommendations to follow.
[2019-12-12 17:13] LABS: Glucose,Whole Blood 141 mg/dL (75-99)
[2019-12-12 20:41] LABS: Glucose,Whole Blood 164 mg/dL (75-99)
[2019-12-13] MEDS: NYSTATIN 100,000 UNIT/GM POWD 15 GM TOPICAL SCH ×3 (00:59→20:49)
[2019-12-13] MEDS: methylPREDNISolone SOD SUCCI 40 MG/ML 1 ML VIAL IV SCH ×2 (01:29→08:20)
[2019-12-13] MEDS: SODIUM CHLORIDE 0.9% 1,000 ML IV SCH ×2 (01:29→17:32)
[2019-12-13] MEDS: IPRATROPIUM-ALBUTEROL 3 ML NEB INHALATION SCH ×4 (07:13→19:12)
[2019-12-13] MEDS: BUDESONIDE 1 MG/2 ML NEBU INHALATION SCH ×2 (07:13→19:12)
[2019-12-13] MEDS: FORMOTEROL FUMARATE 20 MCG/2 ML NEBU INHALATION SCH ×2 (07:13→19:12)
[2019-12-13 07:49] LABS: Glucose,Whole Blood 139 mg/dL (75-99)
[2019-12-13] MEDS: INSULIN ASPART (NovoLOG) 100 UNIT/ML VIAL SQ SCH ×4 (08:19→20:49)
[2019-12-13] MEDS: PANTOPRAZOLE 40 MG TABLET PO SCH (08:22)
[2019-12-13] MEDS: LOSARTAN-HCTZ 50-12.5 MG 1 EACH TAB PO SCH (08:22)
[2019-12-13] MEDS: APIXABAN 5 MG TAB PO SCH ×2 (08:22→20:49)
[2019-12-13] MEDS: DILTIAZEM ORAL 60 MG TAB PO SCH (08:22)
--- NOTE | 2019-12-13 10:27 | PN ---
PROGRESS NOTE A 74-year-old lady who is admitted to hospital with respiratory failure, which is primarily from COPD exacerbation. This morning, patient remains in atrial fibrillation with controlled ventricular rate. Her breathing has improved. Her respiratory status has definitely improved. PHYSICAL EXAM: Heart rate is 72 beats per minute. Blood pressure is 136/70, respiratory rate is 18, O2 saturation is 98% on 4 L. Chest exam reveals bilateral rhonchi that have improved. Heart exam reveals first and second heart sounds, irregular rhythm. Abdomen is soft. Exam of extremities did not reveal any edema. Peripheral pulses are felt. LABS: Show a potassium of 3.7, hemoglobin of 11.4, creatinine is 0.7. ASSESSMENT: 1. Permanent atrial fibrillation with controlled ventricular rate. 2. Chronic obstructive pulmonary disease exacerbation. 3. Hypertension. PLAN: Patient will continue the Eliquis, nebulizers, Cardizem. I am going to decrease the dose of Cardizem to 30 t.i.d. as her heart rate is in the 60s and hopefully home tomorrow. MMODL / IJN: [id number] /
[2019-12-13 10:31] LABS: Calcium 9.5 mg/dL (8.4-10.2); Potassium 3.7 mmol/L (3.5-5.1)
[2019-12-13 12:04] LABS: Glucose,Whole Blood 135 mg/dL (75-99)
[2019-12-13] MEDS: predniSONE 20 MG TAB PO SCH (13:44)
--- NOTE | 2019-12-13 14:25 | P.PN ---
Subjective Progress Note Date: 12/13/19 Principal diagnosis: Acute hypoxic/hypercapnic respiratory failure secondary to COPD exacerbation. On today's evaluation of 12/09 2019 and seeing the patient for a follow-up. The p atient is fully alert and awake this morning. Note that after my departure from the ICU, I was contacted by the nursing staff indicating that the patient was fully awake and alert and she was following commands. This was exciting news as the patient was completely unresponsive for a few hours after she arrived to our intensive care unit. The same as for today. The patient is wide awake. She is following commands and answering questions and she is even writing. The patient is on assist control mode of ventilation. At peak airway pressures dropped down to 24. She is on a rate of 16 with a tidal volume of 375 and an FiO2 of 40% with a PEEP of 5. Chest x-ray shows no significant abnormalities. She remains hemodynamically stable. Pulse ox is 97% on room air. She is still bronchospas tic and wheezy. No fever. No chills. No neck stiffness. No significant swelling lower extremities. No cardiac arrhythmias have been noted. The blood gases from today shows a pH of 7.46, with a pCO2 of 56 and pO2 of 130. The patient is currently intubated by #7 orotracheal tube. She remains on bronchodilators per she remains on systemic steroids. Her bronchospasm and wheezing has improved considerably. Patient was reevaluated today on 12/10/2019, patient was extubated yesterday, she seems to be doing quite well. She is hemodynamically stable, she is on few liters nasal cannula with O2 saturation in the 95-97%. Patient is sitting at a bedside chair, comfortable, all family members at bedside. WBC count is 11.5 hemoglobin is 11.8 electrolytes are normal renal profile is normal bicarb is 39. Chest x-ray showed stable bibasilar atelectasis. Trace of bilateral pleural effusions noted Reevaluated today on 12/11/2019. Patient remains in the ICU, had to be placed on BiPAP last night, received a dose of Lasix 40 mg IV push last night for increased shortness of breath and crackles based on the nurse taking care of the patient. Today the patient is at at bedside chair, on nasal cannula, in no distress. Feeling better, continues to have some cough and wheezing. Gets short of breath easily. No chest pain no fever no chills no hemoptysis no nausea no vomiting no abdominal pain. Labs were basically unremarkable including CBC and basic metabolic profile. Renal profile showed BUN of 41 creatinine 0.92. Chest x-ray showed mostly cardiomegaly and right basilar atelectasis or infiltrate Reevaluated today on 12/12/2019 patient remains in the ICU, presently on 3 L nasal cannula, she was on BiPAP last night. Patient is feeling better, breathing easier, less cough and less wheezing less shortness of breath. Chest x-ray showed minimal right basilar airspace disease and left midlung atelectasis. Labs are basically unremarkable. Bicarb remains elevated at 41 Reevaluated today on 12/13/2019, patient remains in the ICU, remains on 3 L nasal cannula, doing extremely well. Feeling much better, breathing a lot easier. Hardly any cough no wheezing, she does have some discharge on exertion. Patient is already ambulating with assistance. And she remains as an overflow in the ICU today. Labs were reviewed and they seem to be basically unremarkable. All her meds were reviewed, and I switch her to oral prednisone at 40 mg daily. Objective - Vital Signs Vital signs: Vital Signs Temp 97.9 F 12/13/19 12:00 Pulse 72 12/13/19 12:00 Resp 21 12/13/19 12:00 BP 136/70 12/13/19 12:00 Pulse Ox 96 12/13/19 12:00 Intake & Output 12/12/19 12/13/19 12/13/19 18:59 06:59 18:59 Intake Total 200 120 80 Output Total 650 850 450 Balance -450 730 -370 Intake: IV 200 120 80 Sodium Chloride 0.9 150 120 80 cefTRIAXone 1 gm In 50 Sodium Chloride 0.9% 50 ml @ 100 mls/hr IVPB Q24H [facility] Rx#:[id number] Output: Urine 650 850 450 Other: Voiding Method Indwelling Catheter Indwelling Catheter Indwelling Catheter ABP, PAP, CO, CI - Last Documented Arterial Blood Pressure 131/62 - Exam Physical Exam: Revealed a 74-year-old female obese in no distress. On 3 L nasal cannula. Head: Atraumatic, normocephalic. HEENT:[Neck is supple.] [No neck masses.] [No thyromegaly.] [No JVD.] PERRLA, EOMI, no icterus Chest: [Symmetrical chest expansion, diminished breath sounds at the bases no crackles or rhonchi or wheezes. Cardiac Exam: [Normal S1 and S2, no S3 gallop, no murmur.] Abdomen: [Obese, Soft, nontender, no megaly, no rebound, no guarding, normal bowel sounds.] Extremities: [No clubbing, no edema, no cyanosis.] Neurological Exam: [No focal neurologic deficit.] Alert oriented 3. Psychiatric: Normal mood affect and normal mental status examination. Skin: No rashes. Lymphatics: No lymphadenopathy - Labs CBC & Chem 7: 12/12/19 04:28 12/13/19 09:18 Labs: Abnormal Lab Results - Last 24 Hours (Table) 12/12/19 12/12/19 12/13/19 Range/Units 17:11 20:40 07:46 Chloride (98-107) mmol/L Carbon Dioxide (22-30) mmol/L BUN (7-17) mg/dL Glucose (74-99) mg/dL POC Glucose (mg/dL) 141 H 164 H 139 H (75-99) mg/dL 12/13/19 12/13/19 Range/Units 09:18 12:03 Chloride 93 L (98-107) mmol/L Carbon Dioxide 39 H (22-30) mmol/L BUN 38 H (7-17) mg/dL Glucose 174 H (74-99) mg/dL POC Glucose (mg/dL) 135 H (75-99) mg/dL Microbiology - Last 24 Hours (Table) 12/08/19 13:44 Blood Culture - Preliminary Blood No Growth after 96 hours Assessment and Plan Assessment: Impression: Acute hypoxic and hypercapnic respiratory failure secondary to acute exacerbation of COPD, requiring intubation and mechanical ventilation. She was eventually extubated. Severe COPD, FEV1 is 37%. Acute CO2 narcosis, resolved. Chronic atrial fibrillation. Obstructive sleep apnea syndrome. Benign essential hypertension. Hyperlipidemia. Recommendation: Continue bronchodilators Continue steroids, changed to oral prednisone at 40 mg daily Continue oxygen and titrate accordingly. Via nasal cannula, patient is on home oxygen. Use BiPAP as needed. Continue DuoNeb. Continue oral Eliquis. Consider BiPAP at home. Transfer to a regular medical floor, once a bed is available. We'll continue to follow. Time with Patient: Less than 30
[2019-12-13 14:55] VITALS: BMI 37.7
--- NOTE | 2019-12-13 15:42 | P.PN ---
Subjective Progress Note Date: 12/13/19 Principal diagnosis: This is a 74-year-old female who was recently admitted with significant COPD acute exacerbation, hypoxia, status post mechanical ventilation and is being closely monitored. Patient is currently maintained on 4 L of oxygen via nasal cannula and slowly weaning down. Patient currently still using BiPAP at night. Pulmonary is following. Patient is maintained on IV steroids and will continue at this time along with bronchodilators and DuoNeb treatments. Awaiting PT/OT to work with the patient for strength and mobility as she continues to be quite weak requiring assistance. 12/13/2019 In follow-up today patient currently remains in the ICU as a selective overflow and is being closely monitored. Patient is currently using 3 L of oxygen via nasal cannula with saturations of 96%. Patient is working with physical therapy and has been ambulating in the halls. Patient is being maintained on IV steroids along with bronchodilators and DuoNeb treatments and will be transitioned oral steroids today. Discussed with the patient and family members at length today about possible ECF for rehab upon discharge as the patient remains quite weak requiring assistance and multiple rest periods during walking for shortness of breath and exertion. Patient is agreeable at this time and family members agree. Case management following. Currently patient denies any chest pain, worsening shortness of breath, or palpitations. Patient is afebrile. No reports of nausea or vomiting patient is tolerating diet. Objective - Vital Signs Vital signs: Vital Signs Temp 97.7 F 12/13/19 08:00 Pulse 76 12/13/19 11:00 Resp 18 12/13/19 08:00 BP 136/70 12/13/19 08:00 Pulse Ox 98 12/13/19 08:00 Intake & Output 12/12/19 12/13/19 12/13/19 18:59 06:59 18:59 Intake Total 200 120 40 Output Total 650 850 200 Balance -450 -730 -160 Intake: IV 200 120 40 Sodium Chloride 0.9 150 120 40 cefTRIAXone 1 gm In 50 Sodium Chloride 0.9% 50 ml @ 100 mls/hr IVPB Q24H [facility] Rx#:[id number] Output: Urine 650 850 200 Other: Voiding Method Indwelling Catheter Indwelling Catheter Indwelling Catheter ABP, PAP, CO, CI - Last Documented Arterial Blood Pressure 131/62 - Exam Gen: This is a 74-year-old female sitting up in the chair, awake, alert and oriented 3, well-nourished. Temp is 97.9, pulse is 72, respirations are 21, blood pressure is 136/70, oxygen saturation is 96 % on 3 L via nasal cannula. HEENT: Head is atraumatic, normocephalic. Pupils equal, round. Sclerae is anicteric. NECK: Supple. No JVD. No lymphadenopathy. No thyromegaly. LUNGS: Diminished breath sounds at the bases with a few scattered rhonchi noted. No intercostal retractions. HEART: S1, S2 are muffled ABDOMEN: Soft. Obese. Bowel sounds are present. No masses. No tenderness. EXTREMITIES: No pedal edema. No calf tenderness. NEUROLOGICAL: Patient is awake, alert and oriented x3. Cranial nerves 2 through 12 are grossly intact. - Labs CBC & Chem 7: 12/12/19 04:28 12/13/19 09:18 Labs: Abnormal Lab Results - Last 24 Hours (Table) 12/12/19 12/12/19 12/13/19 Range/Units 17:11 20:40 07:46 Chloride (98-107) mmol/L Carbon Dioxide (22-30) mmol/L BUN (7-17) mg/dL Glucose (74-99) mg/dL POC Glucose (mg/dL) 141 H 164 H 139 H (75-99) mg/dL 12/13/19 12/13/19 Range/Units 09:18 12:03 Chloride 93 L (98-107) mmol/L Carbon Dioxide 39 H (22-30) mmol/L BUN 38 H (7-17) mg/dL Glucose 174 H (74-99) mg/dL POC Glucose (mg/dL) 135 H (75-99) mg/dL Microbiology - Last 24 Hours (Table) 12/08/19 13:44 Blood Culture - Preliminary Blood No Growth after 96 hours Assessment and Plan Assessment: Chronic obstructive pulmonary disease, acute exacerbation with acute bibasilar pneumonia possibly gram-negative with possible sepsis with acute hypoxic hypercarbic respiratory failure, present on admission, status post mechanical ventilation Change in mental status, metabolic encephalopathy, possibly secondary to sepsis and hypoxia Troponin 0.05 indeterminate Hypokalemia Increased WBC History of right lower lobe lobectomy History of right upper lobe atelectasis and possible bronchial stenosis pr eviously Hypertension History of chronic obstructive pulmonary disease History of atrial fibrillation, chronic, rate controlled History of pulmonary hypertension History of chronic hypoxic respiratory failure History of hyperlipidemia History of sleep apnea history of hernia repair history of anterior abdominal incisional hernia history of degenerative joint disease Obesity with a body mass index of 40.4 Hypophosphatemia Recommendations and discussion: Recommend to continue current medications, management, and symptomatic treatment. Pulmonary is following. Continue with steroids and being transitioned oral, bronchodilators, and IV antibiotics in the form of ceftriaxone and oral Zithromax. PT/OT are following. Continue with BiPAP at night as needed. Case management and social work are following for discharge planning needs as the patient may be going to [facility] upon discharge for continued PT/OT therapy for strength and mobility. Family and patient are now agreeable with this plan. PT/OT following. Due to multiple complex medical issues prognosis is guarded. Further recommendations to follow.
[2019-12-13 17:03] LABS: Glucose,Whole Blood 161 mg/dL (75-99)
[2019-12-13] MEDS: DILTIAZEM ORAL 30 MG TAB PO SCH ×2 (17:12→20:49)
[2019-12-13] MEDS: AZITHROMYCIN 500 MG TAB PO SCH (17:12)
[2019-12-13 20:44] LABS: Glucose,Whole Blood 171 mg/dL (75-99)
[2019-12-14] MEDS: methylPREDNISolone SOD SUCCI 125 MG/2 ML VIAL IV SCH (00:50)
[2019-12-14 05:21] LABS: Basophils # (A) 0.2 k/uL (0-0.2); Basophils % (A) 2 %; Eosinophils % (A) 0 %; HCT 38.6 % (34.0-46.0); HGB 12.2 gm/dL (11.4-16.0); Lymphocytes # (A) 0.3 k/uL (1.0-4.8); Lymphocytes % (A) 3 %; MCH 29.8 pg (25.0-35.0); MCHC 31.5 g/dL (31.0-37.0); MCV 94.4 fL (80.0-100.0); Mean Platelet Volume 6.6; Monocytes # (A) 0.5 k/uL (0-1.0); Monocytes % (A) 5 %; Neutrophils # (A) 9.7 k/uL (1.3-7.7); Neutrophils % (A) 90 %; Platelet Count 226 k/uL (150-450); RBC 4.08 m/uL (3.80-5.40); RDW 12.6 % (11.5-15.5); WBC 10.9 k/uL (3.8-10.6)
[2019-12-14 05:32] LABS: African American GFR (CKD) >90 (>60 ml/min/1.73 sqM); Blood Urea Nitrogen 36 mg/dL (7-17); Calcium 9.1 mg/dL (8.4-10.2); Chloride 92 mmol/L (98-107); Glucose 141 mg/dL (74-99); Non-African American GFR(CKD) 80 (>60 ml/min/1.73 sqM); Potassium 3.4 mmol/L (3.5-5.1); Sodium 137 mmol/L (137-145)
[2019-12-14 05:38] LABS: Anion Gap 3 mmol/L
[2019-12-14 05:44] LABS: Carbon Dioxide 42 mmol/L (22-30)
[2019-12-14] MEDS ORDERED: Potassium Replacement Protocol 1 EACH MISC MISCELLANE PRN (05:52)
[2019-12-14] MEDS: SODIUM CHLORIDE 0.9% 1,000 ML IV SCH ×2 (06:31→21:01)
[2019-12-14] MEDS: POTASSIUM CHLORIDE ER 20 MEQ TAB.ER PO SCH ×2 (06:32→07:00)
[2019-12-14 07:00] LABS: Glucose,Whole Blood 111 mg/dL (75-99)
[2019-12-14] MEDS: INSULIN ASPART (NovoLOG) 100 UNIT/ML VIAL SQ SCH ×4 (07:00→21:01)
[2019-12-14] MEDS: predniSONE 20 MG TAB PO SCH (07:58)
[2019-12-14] MEDS: PANTOPRAZOLE 40 MG TABLET PO SCH (07:58)
[2019-12-14] MEDS: APIXABAN 5 MG TAB PO SCH ×2 (07:58→21:02)
[2019-12-14] MEDS: DILTIAZEM ORAL 30 MG TAB PO SCH ×3 (07:59→21:03)
[2019-12-14] MEDS: NYSTATIN 100,000 UNIT/GM POWD 15 GM TOPICAL SCH ×2 (07:59→21:03)
[2019-12-14] MEDS: BUDESONIDE 1 MG/2 ML NEBU INHALATION SCH ×2 (08:51→20:21)
[2019-12-14] MEDS: IPRATROPIUM-ALBUTEROL 3 ML NEB INHALATION SCH ×4 (08:51→20:21)
[2019-12-14] MEDS: FORMOTEROL FUMARATE 20 MCG/2 ML NEBU INHALATION SCH ×2 (08:51→20:21)
[2019-12-14] MEDS: LOSARTAN-HCTZ 50-12.5 MG 1 EACH TAB PO SCH (08:55)
[2019-12-14 11:31] LABS: Glucose,Whole Blood 110 mg/dL (75-99)
--- NOTE | 2019-12-14 11:52 | XR ---
EXAMINATION TYPE: XR chest 1V portable DATE OF EXAM: 12/14/2019 COMPARISON: R chest 12/12/2019 HISTORY: Shortness of breath, ICU management. TECHNIQUE: Single frontal view of the chest is obtained. FINDINGS: Findings are similar to prior exam. There are overlying cardiac leads. IMPRESSION: No significant interval change.
--- NOTE | 2019-12-14 12:12 | P.PN ---
Subjective This is a pleasant 74-year-old female past medical history significant for atrial fibrillation, COPD, hypertension, dyslipidemia, obstructive sleep apnea, right lung lobectomy and chronic hypoxic respiratory failure. She follows in the office with Dr. Garcia. She is seen and examined sitting up in the chair in no acute distress HEENT to cough and feel short of breath with activity or exertion. She continues to remain in atrial fibrillation with controlled ventricular rate. She denies chest pain, dizziness or palpitations. Echocar diogram on this admission reveals preserved LV systolic function with ejection fraction 55-60%. Blood pressure 132/73 heart rate 88 afebrile maintaining oxygen saturation on nasal cannula. Laboratory data reviewed, WBC 10.9, hemoglobin 12.2, platelets 226, sodium 137, potassium 3.4, creatinine 0.74 currently maintained on Eliquis 5 mg twice a day, diltiazem 30 mg 3 times a day and losartan/HCTZ 100/25 mg daily. GENERAL: Well-appearing, well-nourished and in no acute distress. NECK: Supple without JVD or thyromegaly. LUNGS: Scattered rhonchi, no wheezes or rales. Respiration equal and unlabored. No wheezes, rales or rhonchi. HEART: Irregular rate and rhythm without murmurs, rubs or gallops. S1 and S2 heard. EXTREMITIES: Normal range of motion, trace bilateral lower extremity nonpitting edema. No clubbing or cyanosis. Peripheral pulses intact. ASSESSMENT Chronic persistent atrial fibrillation with controlled ventricular rate Acute exacerbation of COPD Hypertension Dyslipidemia Obstructive sleep apnea PLAN Continue current medical regimen. Follow up with Dr. Garcia upon discharge. We will follow as needed, please call with further questions of concerns. Nurse Practitioner note has been reviewed, I agree with a documented findings and plan of care. Patient was seen and examined. Objective - Vital Signs Vital signs: Vital Signs Temp 98.4 F 12/14/19 07:44 Pulse 80 12/14/19 09:04 Resp 18 12/14/19 09:04 BP 132/73 12/14/19 07:44 Pulse Ox 95 12/14/19 08:51 Intake & Output 12/13/19 12/14/19 12/14/19 18:59 06:59 18:59 Intake Total 160 Output Total 675 750 Balance -515 -750 Weight 106.1 kg Intake: IV 160 Sodium Chloride 0.9 160 Output: Urine 675 750 Other: Voiding Method Indwelling Catheter Indwelling Catheter ABP, PAP, CO, CI - Last Documented Arterial Blood Pressure 131/62 - Labs CBC & Chem 7: 12/14/19 04:49 12/14/19 04:49 Labs: Abnormal Lab Results - Last 24 Hours (Table) 12/13/19 12/13/19 12/13/19 Range/Units 09:18 12:03 17:01 WBC (3.8-10.6) k/uL Neutrophils # (1.3-7.7) k/uL Lymphocytes # (1.0-4.8) k/uL Potassium (3.5-5.1) mmol/L Chloride 93 L (98-107) mmol/L Carbon Dioxide 39 H (22-30) mmol/L BUN 38 H (7-17) mg/dL Glucose 174 H (74-99) mg/dL POC Glucose (mg/dL) 135 H 161 H (75-99) mg/dL 12/13/19 12/14/19 12/14/19 Range/Units 20:43 04:49 04:49 WBC 10.9 H (3.8-10.6) k/uL Neutrophils # 9.7 H (1.3-7.7) k/uL Lymphocytes # 0.3 L (1.0-4.8) k/uL Potassium 3.4 L (3.5-5.1) mmol/L Chloride 92 L (98-107) mmol/L Carbon Dioxide 42 H* (22-30) mmol/L BUN 36 H (7-17) mg/dL Glucose 141 H (74-99) mg/dL POC Glucose (mg/dL) 171 H (75-99) mg/dL 12/14/19 Range/Units 06:59 WBC (3.8-10.6) k/uL Neutrophils # (1.3-7.7) k/uL Lymphocytes # (1.0-4.8) k/uL Potassium (3.5-5.1) mmol/L Chloride (98-107) mmol/L Carbon Dioxide (22-30) mmol/L BUN (7-17) mg/dL Glucose (74-99) mg/dL POC Glucose (mg/dL) 111 H (75-99) mg/dL Microbiology - Last 24 Hours (Table) 12/08/19 13:44 Blood Culture - Preliminary Blood No Growth after 120 hours
--- NOTE | 2019-12-14 13:50 | P.PN ---
Subjective Progress Note Date: 12/14/19 Principal diagnosis: Acute exacerbation of chronic obstructive pulmonary disease with acute on chronic hypoxic/hypercapnic respiratory failure The patient is seen today 12/14/2019 in follow-up on the regular medical floor. She is awake and alert in no acute distress. Currently sitting up in a chair at the bedside. Maintaining O2 saturations in the 90s on 3 L/m per nasal cannula. Alternating with BiPAP 12/5 and 40% FiO2. She's afebrile. Hemodynamically stable. Blood and sputum cultures reveal no growth. White count 10.9. Hemoglobin 12.2. Sodium 137. Potassium 3.4. Bicarb 42. Creatinine 0.74. She remains on DuoNeb inhalations, Pulmicort and Perforomist inhalations, prednisone. Antibiotics in the form of ceftriaxone and azithromycin. Objective - Vital Signs Vital signs: Vital Signs Temp 97.5 F L 12/14/19 12:53 Pulse 74 12/14/19 12:53 Resp 16 12/14/19 12:53 BP 154/75 12/14/19 12:53 Pulse Ox 92 L 12/14/19 12:53 Intake & Output 12/13/19 12/14/19 12/14/19 18:59 06:59 18:59 Intake Total 160 Output Total 675 750 Balance -515 -750 Weight 106.1 kg Intake: IV 160 Sodium Chloride 0.9 160 Output: Urine 675 750 Other: Voiding Method Indwelling Catheter Indwelling Catheter # Voids 2 ABP, PAP, CO, CI - Last Documented Arterial Blood Pressure 131/62 - Exam GENERAL EXAM: Alert, pleasant 74-year-old female patient, on 3 L nasal cannula, comfortable in no apparent distress. HEAD: Normocephalic. EYES: Normal reaction of pupils, equal size. NOSE: Clear with pink turbinates. THROAT: No erythema or exudates. NECK: No masses, no JVD. CHEST: No chest wall deformity. LUNGS: Equal air entry with no crackles, wheeze, rhonchi or dullness. Diminished. CVS: S1 and S2 normal with no audible murmur, irregular rhythm. ABDOMEN: No hepatosplenomegaly, normal bowel sounds, no guarding or rigidity. SPINE: No scoliosis or deformity SKIN: No rashes CENTRAL NERVOUS SYSTEM: No focal deficits, tone is normal in all 4 extremities. EXTREMITIES: There is no peripheral edema. No clubbing, no cyanosis. Peripheral pulses are intact. - Labs CBC & Chem 7: 12/14/19 04:49 12/14/19 04:49 Labs: Abnormal Lab Results - Last 24 Hours (Table) 12/13/19 12/13/19 12/14/19 Range/Units 17:01 20:43 04:49 WBC 10.9 H (3.8-10.6) k/uL Neutrophils # 9.7 H (1.3-7.7) k/uL Lymphocytes # 0.3 L (1.0-4.8) k/uL Potassium (3.5-5.1) mmol/L Chloride (98-107) mmol/L Carbon Dioxide (22-30) mmol/L BUN (7-17) mg/dL Glucose (74-99) mg/dL POC Glucose (mg/dL) 161 H 171 H (75-99) mg/dL 12/14/19 12/14/19 12/14/19 Range/Units 04:49 06:59 11:25 WBC (3.8-10.6) k/uL Neutrophils # (1.3-7.7) k/uL Lymphocytes # (1.0-4.8) k/uL Potassium 3.4 L (3.5-5.1) mmol/L Chloride 92 L (98-107) mmol/L Carbon Dioxide 42 H* (22-30) mmol/L BUN 36 H (7-17) mg/dL Glucose 141 H (74-99) mg/dL POC Glucose (mg/dL) 111 H 110 H (75-99) mg/dL Microbiology - Last 24 Hours (Table) 12/08/19 13:44 Blood Culture - Preliminary Blood No Growth after 120 hours Assessment and Plan Assessment: Impression: Acute hypoxic and hypercapnic respiratory failure secondary to acute exacerbation of COPD, requiring intubation and mechanical ventilation. She was eventually extubated. Severe COPD, FEV1 is 37%. Acute CO2 narcosis, resolved. Chronic atrial fibrillation. Obstructive sleep apnea syndrome. Benign essential hypertension. Hyperlipidemia. Recommendation: The patient was seen and evaluated by Dr. Welch. Chest x-ray and labs reviewed. She is improved from the pulmonary standpoint. May benefit from home BiPAP. Settings here are 12/5 and 40% FiO2. On oral prednisone. I, the cosigning physician, performed a history & physical examination of the patient. Lungs sounds are clear, diminished. Maintaining good O2 saturations in the 90s on 3 L/m per nasal cannula. I discussed the assessment and plan of care with my nurse practitioner, Mavis Byers. I attest to the above note as dictated by her.
--- NOTE | 2019-12-14 15:14 | P.PN ---
Subjective Progress Note Date: 12/14/19 Principal diagnosis: This is a 74-year-old female who was recently admitted with significant COPD acute exacerbation, hypoxia, status post mechanical ventilation and is being closely monitored. Patient is currently maintained on 4 L of oxygen via nasal cannula and slowly weaning down. Patient currently still using BiPAP at night. Pulmonary is following. Patient is maintained on IV steroids and will continue at this time along with bronchodilators and DuoNeb treatments. Awaiting PT/OT to work with the patient for strength and mobility as she continues to be quite weak requiring assistance. 12/13/2019 In follow-up today patient currently remains in the ICU as a selective overflow and is being closely monitored. Patient is currently using 3 L of oxygen via nasal cannula with saturations of 96%. Patient is working with physical therapy and has been ambulating in the halls. Patient is being maintained on IV steroids along with bronchodilators and DuoNeb treatments and will be transitioned oral steroids today. Discussed with the patient and family members at length today about possible ECF for rehab upon discharge as the patient remains quite weak requiring assistance and multiple rest periods during walking for shortness of breath and exertion. Patient is agreeable at this time and family members agree. Case management following. Currently patient denies any chest pain, worsening shortness of breath, or palpitations. Patient is afebrile. No reports of nausea or vomiting patient is tolerating diet. 12/14/2019 Patient is seen in follow-up today on the [facility] floor as she has been transferred out of the ICU. Patient maintaining oxygen saturations in the low to mid 90s on 3 L via nasal cannula. Patient continues to use the BiPAP at night and intermittently. Awaiting authorization to ECF for continued PT/OT therapy for strength and mobility as she continues to be quite weak and becomes short of breath and exerted with walking. Currently patient denies any chest pain, palpitations, or worsening shortness of breath. Patient is afebrile. Patient denies any nausea or vomiting and has been tolerating diet. Repeat chest x-ray today shows no significant changes from yesterday. Will continue to monitor closely. Objective - Vital Signs Vital signs: Vital Signs Temp 97.5 F L 12/14/19 12:53 Pulse 74 12/14/19 12:53 Resp 16 12/14/19 12:53 BP 154/75 12/14/19 12:53 Pulse Ox 92 L 12/14/19 12:53 Intake & Output 12/13/19 12/14/19 12/14/19 18:59 06:59 18:59 Intake Total 160 Output Total 675 750 Balance -515 -750 Weight 106.1 kg Intake: IV 160 Sodium Chloride 0.9 160 Output: Urine 675 750 Other: Voiding Method Indwelling Catheter Indwelling Catheter # Voids 2 ABP, PAP, CO, CI - Last Documented Arterial Blood Pressure 131/62 - Exam Gen: This is a 74-year-old female sitting up in the chair, awake, alert and oriented 3, well-nourished. Temp is 97.5, pulse is 74, respirations are 16, blood pressure is 154/75, oxygen saturation is 92 % on 3 L via nasal cannula. HEENT: Head is atraumatic, normocephalic. Pupils equal, round. Sclerae is anicteric. NECK: Supple. No JVD. No lymphadenopathy. No thyromegaly. LUNGS: Diminished breath sounds at the bases with a few scattered rhonchi noted. No intercostal retractions. HEART: S1, S2 are muffled ABDOMEN: Soft. Obese. Bowel sounds are present. No masses. No tenderness. EXTREMITIES: No pedal edema. No calf tenderness. NEUROLOGICAL: Patient is awake, alert and oriented x3. Cranial nerves 2 through 12 are grossly intact. - Labs CBC & Chem 7: 12/14/19 04:49 12/14/19 04:49 Labs: Abnormal Lab Results - Last 24 Hours (Table) 12/13/19 12/13/19 12/14/19 Range/Units 17:01 20:43 04:49 WBC 10.9 H (3.8-10.6) k/uL Neutrophils # 9.7 H (1.3-7.7) k/uL Lymphocytes # 0.3 L (1.0-4.8) k/uL Potassium (3.5-5.1) mmol/L Chloride (98-107) mmol/L Carbon Dioxide (22-30) mmol/L BUN (7-17) mg/dL Glucose (74-99) mg/dL POC Glucose (mg/dL) 161 H 171 H (75-99) mg/dL 12/14/19 12/14/19 12/14/19 Range/Units 04:49 06:59 11:25 WBC (3.8-10.6) k/uL Neutrophils # (1.3-7.7) k/uL Lymphocytes # (1.0-4.8) k/uL Potassium 3.4 L (3.5-5.1) mmol/L Chloride 92 L (98-107) mmol/L Carbon Dioxide 42 H* (22-30) mmol/L BUN 36 H (7-17) mg/dL Glucose 141 H (74-99) mg/dL POC Glucose (mg/dL) 111 H 110 H (75-99) mg/dL Microbiology - Last 24 Hours (Table) 12/08/19 13:44 Blood Culture - Preliminary Blood No Growth after 120 hours Assessment and Plan Assessment: Chronic obstructive pulmonary disease, acute exacerbation with acute bibasilar pneumonia possibly gram-negative with possible sepsis with acute hypoxic hypercarbic respiratory failure, present on admission, status post mechanical ventilation Change in mental status, metabolic encephalopathy, possibly secondary to sepsis and hypoxia Troponin 0.05 indeterminate Hypokalemia Increased WBC History of right lower lobe lobectomy History of right upper lobe atelectasis and possible bronchial stenosis previously Hypertension History of chronic obstructive pulmonary disease History of atrial fibrillation, chronic, rate controlled History of pulmonary hypertension History of chronic hypoxic respiratory failure History of hyperlipidemia History of sleep apnea history of hernia repair history of anterior abdominal incisional hernia history of degenerative joint disease Obesity with a body mass index of 40.4 Hypophosphatemia Recommendations and discussion: Recommend to continue current medications, management, and symptomatic treatment. Pulmonary is following. Continue with oral steroids, bronchodilators, and IV antibiotics in the form of ceftriaxone and oral Zithromax. PT/OT are following. Continue with BiPAP at night as needed. Case management and social work are following for discharge planning needs as the patient may be going to [facility] upon discharge once authorization is obtained for continued PT/OT therapy for strength and mobility. Due to multiple complex medical issues prognosis is guarded. Further recommendations to follow. Possible discharge in 24-48 hours.
[2019-12-14] MEDS: AZITHROMYCIN 500 MG TAB PO SCH (16:03)
[2019-12-14 16:47] LABS: Glucose,Whole Blood 139 mg/dL (75-99)
[2019-12-14 20:30] LABS: Glucose,Whole Blood 158 mg/dL (75-99)
[2019-12-15 06:00] LABS: Appearance,Urine Clear (Clear); Bilirubin,Urine Negative (Negative); Blood,Urine Small (Negative); Color,Urine Light Yellow; Glucose,Urine (UA) Negative (Negative); Hyaline Casts,Urine 1 /lpf (0-2); Ketones,Urine Negative (Negative); Leukocyte Esterase,Urine Negative (Negative); Mucus,Urine Rare /hpf; Nitrite,Urine Negative (Negative); Protein,Urine Negative (Negative); RBC,Urine 16 /hpf (0-5); Squamous Epithelial Cell,Urine 1 /hpf (0-4); Urobilinogen,Urine <2.0 mg/dL (<2.0); WBC,Urine <1 /hpf (0-5)
[2019-12-15 06:52] LABS: Glucose,Whole Blood 85 mg/dL (75-99)
[2019-12-15] MEDS: INSULIN ASPART (NovoLOG) 100 UNIT/ML VIAL SQ SCH ×4 (06:59→21:57)
[2019-12-15] MEDS: predniSONE 20 MG TAB PO SCH (07:49)
[2019-12-15] MEDS: PANTOPRAZOLE 40 MG TABLET PO SCH (07:49)
[2019-12-15] MEDS: APIXABAN 5 MG TAB PO SCH ×2 (07:49→21:57)
[2019-12-15] MEDS: DILTIAZEM ORAL 30 MG TAB PO SCH ×3 (07:49→21:57)
[2019-12-15] MEDS: LOSARTAN-HCTZ 50-12.5 MG 1 EACH TAB PO SCH (07:49)
[2019-12-15] MEDS: NYSTATIN 100,000 UNIT/GM POWD 15 GM TOPICAL SCH ×2 (07:50→22:01)
[2019-12-15] MEDS: IPRATROPIUM-ALBUTEROL 3 ML NEB INHALATION SCH ×4 (08:49→20:30)
[2019-12-15] MEDS: BUDESONIDE 1 MG/2 ML NEBU INHALATION SCH ×2 (08:49→20:29)
[2019-12-15] MEDS: FORMOTEROL FUMARATE 20 MCG/2 ML NEBU INHALATION SCH ×2 (08:49→20:29)
[2019-12-15] MEDS: SODIUM CHLORIDE 0.9% 1,000 ML IV SCH (09:39)
[2019-12-15] MEDS ORDERED: HYDROcodone/APAP 5-325MG 1 EACH TAB PO PRN (10:42)
[2019-12-15] MEDS ORDERED: ACETAMINOPHEN TAB 325 MG TAB PO PRN (10:47)
[2019-12-15 11:51] LABS: Glucose,Whole Blood 120 mg/dL (75-99)
--- NOTE | 2019-12-15 14:38 | P.PN ---
Subjective Progress Note Date: 12/15/19 Principal diagnosis: Acute hypoxic/hypercapnic respiratory failure secondary to COPD exacerbation. On today's evaluation of 12/09 2019 and seeing the patient for a follow-up. The p atient is fully alert and awake this morning. Note that after my departure from the ICU, I was contacted by the nursing staff indicating that the patient was fully awake and alert and she was following commands. This was exciting news as the patient was completely unresponsive for a few hours after she arrived to our intensive care unit. The same as for today. The patient is wide awake. She is following commands and answering questions and she is even writing. The patient is on assist control mode of ventilation. At peak airway pressures dropped down to 24. She is on a rate of 16 with a tidal volume of 375 and an FiO2 of 40% with a PEEP of 5. Chest x-ray shows no significant abnormalities. She remains hemodynamically stable. Pulse ox is 97% on room air. She is still bronchospas tic and wheezy. No fever. No chills. No neck stiffness. No significant swelling lower extremities. No cardiac arrhythmias have been noted. The blood gases from today shows a pH of 7.46, with a pCO2 of 56 and pO2 of 130. The patient is currently intubated by #7 orotracheal tube. She remains on bronchodilators per she remains on systemic steroids. Her bronchospasm and wheezing has improved considerably. Patient was reevaluated today on 12/10/2019, patient was extubated yesterday, she seems to be doing quite well. She is hemodynamically stable, she is on few liters nasal cannula with O2 saturation in the 95-97%. Patient is sitting at a bedside chair, comfortable, all family members at bedside. WBC count is 11.5 hemoglobin is 11.8 electrolytes are normal renal profile is normal bicarb is 39. Chest x-ray showed stable bibasilar atelectasis. Trace of bilateral pleural effusions noted Reevaluated today on 12/11/2019. Patient remains in the ICU, had to be placed on BiPAP last night, received a dose of Lasix 40 mg IV push last night for increased shortness of breath and crackles based on the nurse taking care of the patient. Today the patient is at at bedside chair, on nasal cannula, in no distress. Feeling better, continues to have some cough and wheezing. Gets short of breath easily. No chest pain no fever no chills no hemoptysis no nausea no vomiting no abdominal pain. Labs were basically unremarkable including CBC and basic metabolic profile. Renal profile showed BUN of 41 creatinine 0.92. Chest x-ray showed mostly cardiomegaly and right basilar atelectasis or infiltrate Reevaluated today on 12/12/2019 patient remains in the ICU, presently on 3 L nasal cannula, she was on BiPAP last night. Patient is feeling better, breathing easier, less cough and less wheezing less shortness of breath. Chest x-ray showed minimal right basilar airspace disease and left midlung atelectasis. Labs are basically unremarkable. Bicarb remains elevated at 41 Reevaluated today on 12/13/2019, patient remains in the ICU, remains on 3 L nasal cannula, doing extremely well. Feeling much better, breathing a lot easier. Hardly any cough no wheezing, she does have some discharge on exertion. Patient is already ambulating with assistance. And she remains as an overflow in the ICU today. Labs were reviewed and they seem to be basically unremarkable. All her meds were reviewed, and I switch her to oral prednisone at 40 mg daily. Reevaluated today on 12/15/2019, patient is now on the medical floor, doing well, remains on 3 L nasal cannula, generally weak, ambulates with assistance, the plan is to eventually send the patient to a rehab facility. Less shortness of b reath less cough and less wheezing, FiO2 is being titrated down to keep O2 saturation above 90%. Today I stopped her Zithromax, cut down her prednisone to 30 mg daily, and recommended further titration of her FiO2 Objective - Vital Signs Vital signs: Vital Signs Temp 98.3 F 12/15/19 12:10 Pulse 89 12/15/19 12:10 Resp 20 12/15/19 12:10 BP 112/56 12/15/19 12:10 Pulse Ox 97 12/15/19 12:10 Intake & Output 12/14/19 12/15/19 12/15/19 18:59 06:59 18:59 Intake Total 300 Output Total 204 Balance 300 -204 Intake: Oral 300 Output: Urine 204 Other: Voiding Method Toilet Toilet Toilet # Voids 3 10 2 # Bowel Movements 2 ABP, PAP, CO, CI - Last Documented Arterial Blood Pressure 131/62 - Exam Physical Exam: Revealed a 74-year-old female obese in no distress. On 3 L nasal cannula. Head: Atraumatic, normocephalic. HEENT:[Neck is supple.] [No neck masses.] [No thyromegaly.] [No JVD.] PERRLA, EOMI, no icterus Chest: [Symmetrical chest expansion, diminished breath sounds at the bases no crackles or rhonchi or wheezes. Cardiac Exam: [Normal S1 and S2, no S3 gallop, no murmur.] Abdomen: [Obese, Soft, nontender, no megaly, no rebound, no guarding, normal bowel sounds.] Extremities: [No clubbing, no edema, no cyanosis.] Neurological Exam: [No focal neurologic deficit.] Alert oriented 3. Psychiatric: Normal mood affect and normal mental status examination. Skin: No rashes. Lymphatics: No lymphadenopathy - Labs CBC & Chem 7: 12/14/19 04:49 12/14/19 04:49 Labs: Abnormal Lab Results - Last 24 Hours (Table) 12/14/19 12/14/19 12/15/19 Range/Units 16:36 20:20 05:00 POC Glucose (mg/dL) 139 H 158 H (75-99) mg/dL Urine Blood Small H (Negative) Urine RBC 16 H (0-5) /hpf Urine Mucus Rare H (None) /hpf 12/15/19 Range/Units 11:48 POC Glucose (mg/dL) 120 H (75-99) mg/dL Urine Blood (Negative) Urine RBC (0-5) /hpf Urine Mucus (None) /hpf Microbiology - Last 24 Hours (Table) 12/15/19 05:00 Urine Culture - Preliminary Urine,Voided 12/08/19 13:44 Blood Culture - Final Blood No Growth after 144 hours Assessment and Plan Assessment: Impression: Acute hypoxic and hypercapnic respiratory failure secondary to acute exacerbation of COPD, requiring intubation and mechanical ventilation. She was eventually extubated. Severe COPD, FEV1 is 37%. Acute CO2 narcosis, resolved. Chronic atrial fibrillation. Obstructive sleep apnea syndrome. Benign essential hypertension. Hyperlipidemia. Recommendation: Discontinue Zithromax today, Discontinue Rocephin tomorrow. Continue bronchodilators Decrease prednisone to 30 mg daily Continue oxygen and titrate accordingly. Via nasal cannula, patient is on home oxygen. Use BiPAP as needed. Continue DuoNeb. Continue oral Eliquis. Rehab referral in the next 24-40 hours. We'll continue to follow. Time with Patient: Less than 30
[2019-12-15 16:55] LABS: Glucose,Whole Blood 157 mg/dL (75-99)
--- NOTE | 2019-12-15 17:56 | PN ---
PROGRESS NOTE DATE OF SERVICE: 12/15/2019 This 74-year-old woman who was admitted with COPD acute exacerbation as well as bilateral pneumonia is being closely monitored. The patient is awaiting F rehab at this time. No chest pain. No palpitations. No fever. The patient also complaining of diffuse aches and pains as well as anxiety also. PHYSICAL EXAMINATION: On exam, alert and oriented x3. Pulse 89, blood pressure 112/56, respiration 20, temperature 98.3, pulse ox 97% on 3 L. HEENT: Conjunctivae normal. NECK: No jugular venous distention. CARDIOVASCULAR: S1, S2 muffled. RESPIRATORY: Breath sounds diminished at the bases. Scattered rhonchi and crackles. ABDOMEN: Soft, nontender. LEGS: No edema. No swelling. NERVOUS SYSTEM: No focal deficits. LABS: WBC 10.9, hemoglobin 12.2, sodium 137, potassium 3.4. ASSESSMENT: 1. Chronic obstructive pulmonary disease acute exacerbation with acute bibasilar pneumonia possibly gram-negative with possible sepsis with acute hypoxic hypercarbic respiratory failure, present on admission, status post mechanical ventilation. 2. Change in mental status, metabolic encephalopathy, possibly secondary to sepsis and hypoxia. 3. Troponin 0.05 indeterminate. 4. Hypokalemia. 5. Increased WBC. 6. History of right lower lobectomy. 7. History of right upper lobe atelectasis and possible bronchial stenosis previously. 8. Hypertension. 9. History of chronic obstructive pulmonary disease. 10.History atrial fibrillation, chronic, rate controlled. 11.History of pulmonary hypertension. 12.History of chronic hypoxic respiratory failure on home O2. 13.History of hyperlipidemia. 14.History of sleep apnea. 15.History of hernia repair. 16.History of anterior abdominal wall incisional hernia. 17.History of degenerative joint disease. 18.Obesity with body mass index of 40.4. 19.Hypophosphatemia. RECOMMENDATIONS AND DISCUSSION: Recommendation to continue current medications, continue with monitoring and symptomatic treatment. Otherwise at this time I recommend monitor the patient the closely, potassium supplementation. Guarded prognosis because of multiple complex medical issues. Further recommendations to follow. MMODL / IJN: [id number] /
[2019-12-15 20:23] LABS: Glucose,Whole Blood 166 mg/dL (75-99)
[2019-12-15] MEDS: ALPRAZolam 0.5 MG TAB PO PRN (21:57)
[2019-12-16 07:26] LABS: Glucose,Whole Blood 92 mg/dL (75-99)
[2019-12-16] MEDS: INSULIN ASPART (NovoLOG) 100 UNIT/ML VIAL SQ SCH ×4 (08:49→21:20)
[2019-12-16] MEDS: DILTIAZEM ORAL 30 MG TAB PO SCH ×3 (08:50→21:20)
[2019-12-16] MEDS: PANTOPRAZOLE 40 MG TABLET PO SCH (08:50)
[2019-12-16] MEDS: predniSONE 20 MG TAB PO SCH (08:50)
[2019-12-16] MEDS: APIXABAN 5 MG TAB PO SCH ×2 (08:50→21:20)
[2019-12-16] MEDS: LOSARTAN-HCTZ 50-12.5 MG 1 EACH TAB PO SCH (08:51)
[2019-12-16] MEDS: NYSTATIN 100,000 UNIT/GM POWD 15 GM TOPICAL SCH ×2 (08:51→21:20)
[2019-12-16] MEDS: FORMOTEROL FUMARATE 20 MCG/2 ML NEBU INHALATION SCH ×2 (08:54→19:51)
[2019-12-16] MEDS: BUDESONIDE 1 MG/2 ML NEBU INHALATION SCH ×2 (08:54→19:51)
[2019-12-16] MEDS: IPRATROPIUM-ALBUTEROL 3 ML NEB INHALATION SCH ×4 (08:55→19:51)
[2019-12-16 12:17] LABS: Glucose,Whole Blood 93 mg/dL (75-99)
--- NOTE | 2019-12-16 14:22 | P.PN ---
Subjective Progress Note Date: 12/16/19 Principal diagnosis: Acute exacerbation of chronic obstructive pulmonary disease with acute on chronic hypoxic/hypercapnic respiratory failure The patient is seen today 12/16/2019 in follow-up on the regular medical floor. She is currently seen up in a chair at the bedside. Awake and alert in no acute distress. Breathing easier today as compared to yesterday. Stronger every day. Maintaining O2 saturations in the mid 90s on 3 L/m per nasal cannula. She's afebrile. Hemodynamically stable. Blood cultures reveal no growth. Sputum and urine cultures reveal no growth. Blood glucose 93. She is continued on DuoNeb inhalations, Pulmicort and Perforomist inhalations, prednisone. Antibiotics in the form of ceftriaxone. Anticoagulated with Eliquis. Objective - Vital Signs Vital signs: Vital Signs Temp 97.7 F 12/16/19 12:26 Pulse 92 12/16/19 12:26 Resp 20 12/16/19 12:26 BP 120/75 12/16/19 12:26 Pulse Ox 97 12/16/19 12:26 Intake & Output 12/15/19 12/16/19 12/16/19 18:59 06:59 18:59 Intake Total 500 Output Total 204 Balance -204 500 Intake: Oral 500 Output: Urine 204 Other: Voiding Method Toilet Toilet Toilet # Voids 2 4 2 # Bowel Movements 2 ABP, PAP, CO, CI - Last Documented Arterial Blood Pressure 131/62 - Exam GENERAL EXAM: Alert, pleasant 74-year-old female patient, on 3 L nasal cannula, comfortable in no apparent distress. HEAD: Normocephalic. EYES: Normal reaction of pupils, equal size. NOSE: Clear with pink turbinates. THROAT: No erythema or exudates. NECK: No masses, no JVD. CHEST: No chest wall deformity. LUNGS: Equal air entry with no crackles, wheeze, rhonchi or dullness. Diminished. CVS: S1 and S2 normal with no audible murmur, irregular rhythm. ABDOMEN: No hepatosplenomegaly, normal bowel sounds, no guarding or rigidity. SPINE: No scoliosis or deformity SKIN: No rashes CENTRAL NERVOUS SYSTEM: No focal deficits, tone is normal in all 4 extremities. EXTREMITIES: There is no peripheral edema. No clubbing, no cyanosis. Peripheral pulses are intact. - Labs CBC & Chem 7: 02/07/20 04:49 12/14/19 04:49 Labs: Abnormal Lab Results - Last 24 Hours (Table) 12/15/19 12/15/19 Range/Units 16:51 20:10 POC Glucose (mg/dL) 157 H 166 H (75-99) mg/dL Microbiology - Last 24 Hours (Table) 12/15/19 05:00 Urine Culture - Final Urine,Voided Assessment and Plan Assessment: Impression: Acute hypoxic and hypercapnic respiratory failure secondary to acute exacerbation of COPD, requiring intubation and mechanical ventilation. She was eventually extubated. Currently on 3 L nasal cannula. Severe COPD, FEV1 is 37%. Acute CO2 narcosis, resolved. Chronic atrial fibrillation. Obstructive sleep apnea syndrome. Benign essential hypertension. Hyperlipidemia. Recommendation: The patient was seen and evaluated by Dr. Welch. She is improved from the pulmonary standpoint. Plan is for transfer to subacute rehabilitation in [facility] I, the cosigning physician, performed a history & physical examination of the patient. Lungs sounds are clear, diminished. Maintaining good O2 saturations in the 90s on 3 L/m per nasal cannula. I discussed the assessment and plan of care with my nurse practitioner, Mavis Byers. I attest to the above note as dictated by her.
[2019-12-16 17:01] LABS: Glucose,Whole Blood 140 mg/dL (75-99)
[2019-12-16 21:00] LABS: Glucose,Whole Blood 185 mg/dL (75-99)
--- NOTE | 2019-12-16 22:40 | PN ---
PROGRESS NOTE DATE OF SERVICE: 12/16/2019 This 74-year-old woman who was admitted with COPD acute exacerbation with acute bibasilar pneumonia, possibly gram-negative, is being closely monitored at this time. PT is following the patient for possible ECF rehab. No chest pain. No palpitations. No fever. EXAM: Alert and oriented. Pulse 92, blood pressure ( ), respiration 20, temperature 97.7, pulse ox 97% on 3 L. HEENT: Conjunctivae normal. NECK: No JVD. CARDIOVASCULAR: S1, S2 muffled. LUNGS: Diminished breath sounds at the bases. Bilateral scattered rhonchi and crackles. ABDOMEN: Soft, nontender. LEGS: No swelling. NERVOUS SYSTEM: No focal deficits. LAB STUDIES: At this time show the glucose is 93 and 140. Other labs are noted. ASSESSMENT: 1. Chronic obstructive pulmonary disease acute exacerbation with acute bibasilar pneumonia possibly gram-negative with possible sepsis with acute hypoxic hypercarbic respiratory failure, present on admission, status post mechanical ventilation. 2. Change in mental status, metabolic encephalopathy, possibly secondary to sepsis and as well as hypoxia. 3. Troponin 0.05, indeterminate. 4. Hypokalemia. 5. Increased WBC. 6. History of right lower lobectomy. 7. History of right upper lobe atelectasis and possible bronchial stenosis previously. 8. Hypertension. 9. History of chronic obstructive pulmonary disease. 10.History atrial fibrillation, chronic, rate controlled. 11.History of pulmonary hypertension. 12.History of chronic hypoxic respiratory failure on home O2. 13.Hyperlipidemia. 14.History of sleep apnea. 15.History of hernia repair. 16.History of anterior abdominal wall incisional hernia. 17.History of degenerative joint disease. 18.Obesity with body mass index of 40.4. 19.Hypophosphatemia. RECOMMENDATIONS AND DISCUSSION: Recommend to continue current medications, continue to monitor, symptomatic treatment. Otherwise, at this time continue with antibiotics, continue the bronchodilators. Steroids have been tapered. PT/OT evaluation, possible ECF rehab. Further recommendations to follow. MMODL / IJN: [id number] /
[2019-12-16] MEDS: ALPRAZolam 0.5 MG TAB PO PRN (23:07)
[2019-12-17] MEDS: FORMOTEROL FUMARATE 20 MCG/2 ML NEBU INHALATION SCH (07:10)
[2019-12-17] MEDS: IPRATROPIUM-ALBUTEROL 3 ML NEB INHALATION SCH ×3 (07:10→15:02)
[2019-12-17] MEDS: BUDESONIDE 1 MG/2 ML NEBU INHALATION SCH (07:10)
[2019-12-17 07:20] LABS: Glucose,Whole Blood 107 mg/dL (75-99)
[2019-12-17] MEDS: INSULIN ASPART (NovoLOG) 100 UNIT/ML VIAL SQ SCH ×2 (07:30→12:34)
[2019-12-17 08:38] LABS: Basophils # (A) 0.4 k/uL (0-0.2); Basophils % (A) 3 %; Eosinophils # (A) 0.1 k/uL (0-0.7); Eosinophils % (A) 0 %; HCT 39.4 % (34.0-46.0); HGB 12.9 gm/dL (11.4-16.0); Lymphocytes # (A) 0.8 k/uL (1.0-4.8); Lymphocytes % (A) 6 %; MCH 30.8 pg (25.0-35.0); MCHC 32.7 g/dL (31.0-37.0); MCV 94.2 fL (80.0-100.0); Mean Platelet Volume 7.5; Monocytes # (A) 0.6 k/uL (0-1.0); Monocytes % (A) 4 %; Neutrophils % (A) 87 %; Platelet Count 231 k/uL (150-450); RBC 4.18 m/uL (3.80-5.40); RDW 12.8 % (11.5-15.5); WBC 13.8 k/uL (3.8-10.6)
[2019-12-17 08:46] LABS: African American GFR (CKD) >90 (>60 ml/min/1.73 sqM); Blood Urea Nitrogen 37 mg/dL (7-17); Calcium 9.2 mg/dL (8.4-10.2); Chloride 90 mmol/L (98-107); Glucose 84 mg/dL (74-99); Non-African American GFR(CKD) 87 (>60 ml/min/1.73 sqM); Sodium 136 mmol/L (137-145)
[2019-12-17 08:54] LABS: Anion Gap 4 mmol/L
[2019-12-17 09:05] LABS: Carbon Dioxide 42 mmol/L (22-30); Potassium 4.1 mmol/L (3.5-5.1)
[2019-12-17] MEDS: predniSONE 20 MG TAB PO SCH (09:12)
[2019-12-17] MEDS: LOSARTAN-HCTZ 50-12.5 MG 1 EACH TAB PO SCH (09:12)
[2019-12-17] MEDS: NYSTATIN 100,000 UNIT/GM POWD 15 GM TOPICAL SCH (09:12)
[2019-12-17] MEDS: DILTIAZEM ORAL 30 MG TAB PO SCH (09:12)
[2019-12-17] MEDS: APIXABAN 5 MG TAB PO SCH (09:12)
[2019-12-17] MEDS: PANTOPRAZOLE 40 MG TABLET PO SCH (09:12)
[2019-12-17 12:01] LABS: Glucose,Whole Blood 101 mg/dL (75-99)
--- NOTE | 2019-12-17 14:06 | P.PN ---
Subjective Progress Note Date: 12/17/19 Principal diagnosis: Acute exacerbation of chronic obstructive pulmonary disease with acute on chronic hypoxic/hypercapnic respiratory failure The patient is seen today 12/17/2019 in follow-up on the regular medical floor. She is currently seen up in a chair at the bedside. She has been up ambulating with her walker and assistance from physical therapy. Maintaining O2 saturations in the mid 90s on 3 L/m per nasal cannula. She's afebrile. Hemodynamically stable. Blood cultures reveal no growth. Sputum and urine cultures reveal no growth. White count 13.8. Hemoglobin 12.9. Sodium 136. Bicarb 42. Creatinine 0.66. She is continued on DuoNeb inhalations, Pulmicort and Perforomist inhalations, prednisone. Antibiotics in the form of ceftriaxone. Anticoagulated with Eliquis. Objective - Vital Signs Vital signs: Vital Signs Temp 97.3 F L 12/17/19 05:49 Pulse 86 12/17/19 10:57 Resp 16 12/17/19 05:49 BP 131/70 12/17/19 05:49 Pulse Ox 96 12/17/19 05:49 Intake & Output 12/16/19 12/17/19 12/17/19 18:59 06:59 18:59 Other: Voiding Method Toilet Toilet Toilet # Voids 3 3 # Bowel Movements 0 ABP, PAP, CO, CI - Last Documented Arterial Blood Pressure 131/62 - Exam GENERAL EXAM: Alert, pleasant 74-year-old female patient, on 3 L nasal cannula, comfortable in no apparent distress. HEAD: Normocephalic. EYES: Normal reaction of pupils, equal size. NOSE: Clear with pink turbinates. THROAT: No erythema or exudates. NECK: No masses, no JVD. CHEST: No chest wall deformity. LUNGS: Equal air entry with no crackles, wheeze, rhonchi or dullness. Diminished. CVS: S1 and S2 normal with no audible murmur, irregular rhythm. ABDOMEN: No hepatosplenomegaly, normal bowel sounds, no guarding or rigidity. SPINE: No scoliosis or deformity SKIN: No rashes CENTRAL NERVOUS SYSTEM: No focal deficits, tone is normal in all 4 extremities. EXTREMITIES: There is no peripheral edema. No clubbing, no cyanosis. Peripheral pulses are intact. - Labs CBC & Chem 7: 12/17/19 07:38 12/17/19 07:38 Labs: Abnormal Lab Results - Last 24 Hours (Table) 12/16/19 12/16/19 12/17/19 Range/Units 16:53 20:58 07:01 WBC (3.8-10.6) k/uL Neutrophils # (1.3-7.7) k/uL Lymphocytes # (1.0-4.8) k/uL Basophils # (0-0.2) k/uL Sodium (137-145) mmol/L Chloride (98-107) mmol/L Carbon Dioxide (22-30) mmol/L BUN (7-17) mg/dL POC Glucose (mg/dL) 140 H 185 H 107 H (75-99) mg/dL 12/17/19 12/17/19 12/17/19 Range/Units 07:38 07:38 11:45 WBC 13.8 H (3.8-10.6) k/uL Neutrophils # 12.0 H (1.3-7.7) k/uL Lymphocytes # 0.8 L (1.0-4.8) k/uL Basophils # 0.4 H (0-0.2) k/uL Sodium 136 L (137-145) mmol/L Chloride 90 L (98-107) mmol/L Carbon Dioxide 42 H* (22-30) mmol/L BUN 37 H (7-17) mg/dL POC Glucose (mg/dL) 101 H (75-99) mg/dL Microbiology - Last 24 Hours (Table) 12/15/19 05:00 Urine Culture - Final Urine,Voided Assessment and Plan Assessment: Impression: Acute hypoxic and hypercapnic respiratory failure secondary to acute exacerbation of COPD, requiring intubation and mechanical ventilation. She was eventually extubated. Currently on 3 L nasal cannula. Severe COPD, FEV1 is 37%. Acute CO2 narcosis, resolved. Chronic atrial fibrillation. Obstructive sleep apnea syndrome. Benign essential hypertension. Hyperlipidemia. Recommendation: The patient was seen and evaluated by Dr. Shah. She is improved from the pulmonary standpoint. Cleared for discharge today. Follow-up in our office in 1-2 weeks' time. She is encouraged to call sooner with any recurrence of sympto ms or other questions or concerns. I, the cosigning physician, performed a history & physical examination of the patient. Lungs sounds are clear, diminished. Maintaining good O2 saturations in the 90s on 3 L/m per nasal cannula. I discussed the assessment and plan of care with my nurse practitioner, Mavis Byers. I attest to the above note as dictated by her.
--- NOTE | 2019-12-17 14:15 | P.DS ---
Providers Date of admission: 12/08/19 13:19 Expected date of discharge: 12/17/19 Attending physician: Adrienne Larios Consults: 12/08/19 13:18 Consult Physician Stat Consulting Provider: Miya Bourne Consult Reason/Comments: Respiratory failure ICU management Do you want consulting provider notified?: Already Contacted 12/08/19 18:33 Consult Physician Routine Consulting Provider: Johnathan Guzman Consult Reason/Comments: high trops Do you want consulting provider notified?: Yes Primary care physician: Kimberly Molina [facility] Course: Final diagnosis Chronic obstructive pulmonary disease acute exacerbation with acute bibasilar pneumonia possibly gram-negative with possible sepsis with acute hypoxic hypercarbic respiratory failure, present on admission, status post mechanical ventilation Change in mental status, metabolic encephalopathy, possibly secondary to sepsis as well as hypoxia Troponin 0.05, indeterminate Hypokalemia Increased WBC History of right lower lobectomy History of right upper lobe atelectasis and possible bronchial stenosis previously Hypertension History of chronic obstructive pulmonary disease History of atrial fibrillation, chronic, rate controlled History of pulmonary hypertension History of chronic hypoxic respiratory failure on home O2 Hyperlipidemia History of sleep apnea history of hernia repair History of anterior abdominal wall incisional hernia History of degenerative joint disease Obesity with a body mass index of 40.4 Hypophosphatemia Discharge disposition Patient Is being discharged in a stable condition with guarded prognosis to [facility] for continued PT/OT therapy. Patient will continue with short course of oral antibiotics in the form of Ceftin for the next 5 days in the may discontinue. Patient will also continue with the prednisone taper. Patient will be following up with primary care provider Dr. Molina upon discharge. Total time taken is 35 minutes. History of present illness This is a 74-year-old female who was recently admitted with COPD acute exacerbation with acute bibasilar pneumonia, possibly gram-negative and is being closely monitored at this time. Patient was in the ICU for a brief stent requiring mechanical ventilation and is continuing to use BiPAP at night intermittently. BiPAP settings are 12/5 with an FiO2 of 40%. Patient is currently on 2 L of oxygen via nasal cannula as she normally is at home. Patient was treated with IV antibiotics and will continue oral antibiotics in the form of Ceftin for the next 5 days and then may discontinue. Also continue with a prednisone taper upon discharge. Patient was quite weak and requiring moderate assistance for ADLs and has been working with PT/OT during hospitalization. Patient continues to be weak and needs to work with physical therapy for strength and mobility as her plan is to get home with her family upon discharge from the rehab. Currently patient denies any chest pain or palpitations. Patient is afebrile. Patient denies any nausea or vomiting and is tolerating diet. Patient continues to have some shortness of breath with exertion. Guarded prognosis. On exam vital signs are stable. Temp is 97.3F, pulse is 77, respirations are 16, blood pressure is 131/70, oxygen saturation is 96% on 3 L via nasal cannula. Cardio S1, S2 are muffled. Respiratory shows diminished breath sounds at the bases with a few scattered wheezes noted on expiration. Abdomen is soft and nontender. Nervous system shows mild diffuse weakness. Please refer to medication reconciliation sheet for a list of medications. Patient Condition at Discharge: Stable Plan - Discharge Summary Discharge Rx Participant: Yes New Discharge Prescriptions: New Diltiazem Oral [Cardizem*] 30 mg PO TID 30 Days #90 tab Cefuroxime Axetil [Ceftin] 500 mg PO BID 5 Days #10 tab Losartan-Hctz 50-12.5 mg [Hyzaar 50-12.5] 2 each PO DAILY 30 Days #60 tab Nystatin 100,000 Unit/gm Powd [Mycostatin Powder] 1 applic TOPICAL BID 30 Days #1 applic predniSONE 10 mg PO DIRECTED #30 tab Pantoprazole [Protonix] 40 mg PO DAILY 30 Days #30 tablet. Budesonide/Formoterol Fumarate [Symbicort 160-4.5 Mcg Inhaler] 1 puff IH BID #1 hfa.aer.ad Albuterol Inhaler [Ventolin Hfa Inhaler] 1 - 2 puff INHALATION RT-Q6H PRN 30 Days #1 inhaler PRN Reason: Shortness Of Breath Or Wheezing Continue Apixaban [Eliquis] 5 mg PO BID Discontinued Losartan-Hctz 50-12.5 mg [Hyzaar 50-12.5] 1 tab PO DAILY predniSONE [Deltasone] 20 mg PO BID Levofloxacin [Levaquin] 500 mg PO DAILY Discharge Medication List Apixaban [Eliquis] 5 mg PO BID 07/13/19 [History] Albuterol Inhaler [Ventolin Hfa Inhaler] 1 - 2 puff INHALATION RT-Q6H PRN 30 Days #1 inhaler 12/17/19 [Rx] Budesonide/Formoterol Fumarate [Symbicort 160-4.5 Mcg Inhaler] 1 puff IH BID #1 hfa.aer.ad 12/17/19 [Rx] Cefuroxime Axetil [Ceftin] 500 mg PO BID 5 Days #10 tab 12/17/19 [Rx] Diltiazem Oral [Cardizem*] 30 mg PO TID 30 Days #90 tab 12/17/19 [Rx] Losartan-Hctz 50-12.5 mg [Hyzaar 50-12.5] 2 each PO DAILY 30 Days #60 tab 12/17/19 [Rx] Nystatin 100,000 Unit/gm Powd [Mycostatin Powder] 1 applic TOPICAL BID 30 Days #1 applic 12/17/19 [Rx] Pantoprazole [Protonix] 40 mg PO DAILY 30 Days #30 tablet. 12/17/19 [Rx] predniSONE 10 mg PO DIRECTED #30 tab 12/17/19 [Rx] Follow up Appointment(s)/Referral(s): [facility] [NON-STAFF] - 1-2 Days Sixto Welch MD [STAFF PHYSICIAN] - 12/28/19 9:45 am Reddy Garcia MD [STAFF PHYSICIAN] - 2 Weeks Kimberly Molina MD [Primary Care Provider] - 12/19/19 12:00 pm Patient Instructions/Handouts: ARDS (Acute Respiratory Distress Syndrome) (GEN) Activity/Diet/Wound Care/Special Instructions: Patient is going to [facility] Activity as tolerated Continue BiPAP as needed with settings of 12/5 and 40% FiO2 Follow-up with primary care provider upon discharge PULMONARY upon discharge Continue current diet Continue with antibiotics until finished Discharge Disposition: HOME WITH HOME HEALTH SERVICES
[2019-12-17 15:50] VITALS: BP 128/76; PULSE 97; RESP 18; TEMP 98.6
--- NOTE | 2019-12-18 13:23 | CDI ---
Documentation Clarification Form Date: 12/18/19 From: Nevaeh Garcia Phone: If you have a question about this query, please contact Hanane Zamora, Director Check at [phone] between 8am and 5pm. Admit Date: 12/08/19 Discharge Date: 12/17/19 Patient Name: Renuka Wolf Visit Number: [id number] ATTENTION: The Clinical Documentation Specialists (CDI) and [facility] Coding Staff appreciate your assistance in clarifying documentation. Please respond to the clarification below the line at the bottom and electronically sign. The CDI & [facility] Coding staff will review the response and follow-up if needed. Please note: Queries are made part of the Legal Health Record. If you have any questions, please contact the author of this message via ITS. Dear Dr. Adrienne Larios, CHF is documented in the ED note. History/Risk Factors: COPD, pulmonary HTN, home oxygen, morbid obesity Clinical Indicators: First and second heart sounds were normal and physiologic splitting of second heart sound was noted. VS/Pulse OX: 9-81, R-20/28, BP-108/77 & 91/29, O2 sat-100 (MV) BNP: none Echocardiogram Results: left ventricular systolic function is normal w EF between 55-60% 2/2 Chest X Ray: small bilateral effusions, heart mildly enlarged Treatment: IV Lasix 40 mg once In your professional opinion, can you please clarify the acuity and type of CHF if known? TYPE Systolic Heart Failure Diastolic Heart Failure Systolic & Diastolic Heart Failure ACUITY Acute Chronic Acute on Chronic Heart Failure Unable to Determine Other, please specify Diastolic Heart Failure chronic MTDD
== END 2019-12-17 15:40 | disposition home health service (06) | DRG 871 ==
LOC: EC 12:50 → 2SICU 13:19 → 6NMEDSUR 12-14 07:22
PROVIDERS: ADMIT Hospitalist; ATTEND Hospitalist
PROC: 02HV33Z Insertion of Infusion Device into Superior Vena Cava, Percutaneous Approach (ICD-10-PCS; principal; 2019-12-08)
PROC: 5A1935Z Respiratory Ventilation, Less than 24 Consecutive Hours (ICD-10-PCS; principal; 2019-12-08)
PROC: 4A133B1 Monitoring of Arterial Pressure, Peripheral, Percutaneous Approach (ICD-10-PCS; principal; 2019-12-08)
PROC: 4A133J1 Monitoring of Arterial Pulse, Peripheral, Percutaneous Approach (ICD-10-PCS; principal; 2019-12-08)
PROC: 03HY32Z Insertion of Monitoring Device into Upper Artery, Percutaneous Approach (ICD-10-PCS; principal; 2019-12-08)
PROC: 5A09557 Assistance with Respiratory Ventilation, Greater than 96 Consecutive Hours, Continuous Positive Airway Pressure (ICD-10-PCS; 2019-12-09)
PROC: 05HD33Z Insertion of Infusion Device into Right Cephalic Vein, Percutaneous Approach (ICD-10-PCS; 2019-12-11 09:00)
DX: A41.9 Sepsis, unspecified organism (principal); J96.21 Acute and chronic respiratory failure with hypoxia; J96.22 Acute and chronic respiratory failure with hypercapnia; J15.6 Pneumonia due to other Gram-negative bacteria; G93.41 Metabolic encephalopathy; J44.0 Chronic obstructive pulmonary disease with (acute) lower respiratory infection; E87.2 Acidosis; J44.1 Chronic obstructive pulmonary disease with (acute) exacerbation; Z68.41 Body mass index [BMI] 40.0-44.9, adult; I48.21 Permanent atrial fibrillation; J98.11 Atelectasis; I50.32 Chronic diastolic (congestive) heart failure; I27.29 Other secondary pulmonary hypertension; I11.0 Hypertensive heart disease with heart failure; Z99.81 Dependence on supplemental oxygen; Z66 Do not resuscitate; E83.39 Other disorders of phosphorus metabolism; J98.09 Other diseases of bronchus, not elsewhere classified; E66.01 Morbid (severe) obesity due to excess calories; E87.6 Hypokalemia; F41.9 Anxiety disorder, unspecified; E78.5 Hyperlipidemia, unspecified; G47.33 Obstructive sleep apnea (adult) (pediatric); M19.90 Unspecified osteoarthritis, unspecified site; R79.89 Other specified abnormal findings of blood chemistry; Z79.01 Long term (current) use of anticoagulants; Z79.52 Long term (current) use of systemic steroids; Z79.899 Other long term (current) drug therapy; Z71.3 Dietary counseling and surveillance; Z90.2 Acquired absence of lung [part of]; Z90.710 Acquired absence of both cervix and uterus; Z90.49 Acquired absence of other specified parts of digestive tract; Z98.890 Other specified postprocedural states; Z80.0 Family history of malignant neoplasm of digestive organs; Z82.49 Family history of ischemic heart disease and other diseases of the circulatory system
CPT/HCPCS: 36410; 36556; 70450; 71045; 76937; 80048; 80053; 81001; 82140; 82374; 82550; 82805; 83036; 83605; 83735; 83880; 84100; 84484; 85025; 85610; 85730; 87040; 87070; 87086; 87205; 87502; 93005; 93306; 93880; 94002; 94003; 94640; 94660; 94760; 96365; 96368; 96375; 99291

== ENCOUNTER 2020-07-26 13:56 | Emergency (ER) | payer MEDICARE ==
[2020-07-26] MEDS ORDERED: MORPHINE SULFATE 2 MG/ML SYRINGE IVP STA (14:34)
[2020-07-26] MEDS ORDERED: ONDANSETRON 4 MG/2 ML VIAL IVP STA ×2 (14:34→17:16)
[2020-07-26] MEDS ORDERED: PANTOPRAZOLE 40 MG/10 ML VIAL IVP STA (14:34)
[2020-07-26] MEDS ORDERED: SODIUM CHLORIDE 0.9% 1,000 ML IV STA (14:34)
--- NOTE | 2020-07-26 14:55 | ED ---
Abdominal Pain HPI - General Chief Complaint: Abdominal Pain Stated Complaint: Vomiting,Abdominal Pain Time Seen by Provider: 07/26/20 14:13 Source: patient Mode of arrival: ambulatory Limitations: no limitations - History of Present Illness Initial Comments: Patient is a 74-year-old female, with history of COPD on 1 L home O2, A. fib, hypertension, presenting to the emergency Department with complaints of left lower quadrant pain for the past 3 days. Patient also reports nausea and vomiting with this abdominal pain. She describes the pain as sharp with some mild radiation up to her left side of her abdomen. She admits to soft stools but states this is normal for her, no significant diarrhea. She denies any fever, chills. She is having some mild upper abdominal pain as well but feels like this is from her vomiting. She admits to history of hysterectomy, umbilical hernia repair, no other abdominal surgeries. She denies any urinary complaints. She denies any new medications, no antibiotics recently. She denies any chest pain or shortness of breath. She has no further complaints at this time. Upon arrival to the ER, her vital signs are stable, afebrile. - Related Data Home Medications Medication Instructions Recorded Confirmed Apixaban [Eliquis] 5 mg PO BID 07/13/19 07/26/20 ALPRAZolam [Xanax] 0.25 mg PO DAILY PRN 07/26/20 07/26/20 Albuterol Nebulized [Ventolin 2.5 mg INHALATION RT-Q6H PRN 07/26/20 07/26/20 Nebulized] Budesonide/Formoterol Fumarate 1 puff INHALATION RT-BID PRN 07/26/20 07/26/20 [Symbicort 160-4.5 Mcg Inhaler] Losartan-Hctz 50-12.5 mg [Hyzaar 1 tab PO DAILY 07/26/20 07/26/20 50-12.5] Spironolactone [Aldactone] 25 mg PO MOWEFR 07/26/20 07/26/20 Previous Rx's Medication Instructions Recorded Amoxicillin/Potassium Clav 1 tab PO BID 10 Days #20 tab 07/26/20 [Augmentin 875-125 Tablet] Hydrocodone/Acetaminophen [[place] 1 tab PO Q6HR PRN #10 tab 07/26/20 5-325] Ondansetron Odt [Zofran Odt] 4 mg PO Q8HR PRN #10 tab 07/26/20 Allergies Allergy/AdvReac Type Severity Reaction Status Date / Time No Known Allergies Allergy Verified 07/26/20 17:00 Review of Systems ROS Statement: Those systems with pertinent positive or pertinent negative responses have been documented in the HPI. ROS Other: All systems not noted in ROS Statement are negative. Past Medical History Past Medical History: Atrial Fibrillation, COPD, Hypertension Additional Past Medical History / Comment(s): COPD, hypertension, secondary pulmonary hypertension, chronic hypoxic respiratory failure, chronic atrial fibrillation, hyperlipidemia, obstructive sleep apnea History of Any Multi-Drug Resistant Organisms: None Reported Additional Past Surgical History / Comment(s): Right lung lung lobectomy, hernia repair and the patient has a large anterior abdominal wall incision, hysterectomy, knee surgery, cholecystectomy Past Psychological History: No Psychological Hx Reported Smoking Status: Never smoker Past Alcohol Use History: Rare Past Drug Use History: None Reported - Past Family History Mother Family Medical History: Cancer Father Family Medical History: Coronary Artery Disease (CAD) General Exam - General Exam Comments Initial Comments: GENERAL: Patient is well-developed and well-nourished. Patient is nontoxic and in no acute distress, does look uncomfortable. HEAD: Atraumatic, normocephalic. EYES: Pupils equal round and reactive to light, extraocular movements intact, sclera anicteric, conjunctiva are normal. Eyelids were unremarkable. ENT: TMs normal, nares patent, oropharynx clear without exudates. Moist mucous membranes. NECK: Normal range of motion, supple without lymphadenopathy or JVD. LUNGS: Unlabored respirations. Very mild scattered wheezes in the upper lobes, history of COPD. HEART: Regular rate and rhythm without murmurs, rubs or gallops. ABDOMEN: Tender to palpation left lower quadrant, mild pain in the epigastric area. Soft, normoactive bowel sounds. No guarding, no rebound. No masses appreciated. : Deferred MUSCULOSKELETAL: Normal extremities with adequate strength and normal range of motion, no pitting or edema. No clubbing or cyanosis. NEUROLOGICAL: Patient is alert and oriented x 3. Motor and sensory are also intact. Cranial nerves II through XII grossly intact. Symmetrical smile. Normal speech, normal gait. PSYCH: Normal mood, normal affect. SKIN: Warm, Dry, normal turgor, no rashes or lesions noted. Limitations: no limitations Course Vital Signs 07/26/20 07/26/20 07/26/20 14:03 17:05 18:08 Temperature 98.2 F 98.1 F Pulse Rate 81 79 86 Respiratory 20 16 16 Rate Blood Pressure 139/79 152/83 123/76 O2 Sat by Pulse 93 L 99 99 Oximetry Medical Decision Making - Medical Decision Making Patient is a 74-year-old female here for left lower quadrant pain, nausea and vomiting 3 days. She is afebrile on arrival. Labs show a white count 18.3, kidney function is stable, lactic acid is 1.0. Urine shows no evidence of an active infection, 1+ ketones. Patient's computed tomography scan of the abdomen shows a mild to moderate uncomplicated acute diverticulitis of the mid descending colon and left mid abdomen. No signs of an abscess. Patient has been given fluids, pain control as well as Zofran. She's been resting complaining ER. I discussed these findings with her. Patient is comfortable going home and being treated as an outpatient. I will start patient on Augmentin as well as sending home with a short course of pain medicines and Zofran to use as needed. Patient will follow up with her PCP in the next few days. She is stable for discharge. She is in agreement with this plan of care. Return parameters were discussed with the patient and her daughter and they both verbalized understanding. Case discussed with Dr. Farrar. - Lab Data Result diagrams: 07/26/20 14:50 07/26/20 14:50 Lab Results 07/26/20 07/26/20 07/26/20 Range/Units 14:50 14:50 14:50 WBC 18.3 H (3.8-10.6) k/uL RBC 5.40 (3.80-5.40) m/uL Hgb 15.8 (11.4-16.0) gm/dL Hct 49.2 H (34.0-46.0) % MCV 91.0 (80.0-100.0) fL MCH 29.2 (25.0-35.0) pg MCHC 32.0 (31.0-37.0) g/dL RDW 13.7 (11.5-15.5) % Plt Count 232 (150-450) k/uL Neutrophils % 88 % Lymphocytes % 7 % Monocytes % 3 % Eosinophils % 1 % Basophils % 0 % Neutrophils # 16.1 H (1.3-7.7) k/uL Lymphocytes # 1.3 (1.0-4.8) k/uL Monocytes # 0.5 (0-1.0) k/uL Eosinophils # 0.2 (0-0.7) k/uL Basophils # 0.0 (0-0.2) k/uL Sodium 137 (137-145) mmol/L Potassium 4.3 (3.5-5.1) mmol/L Chloride 100 (98-107) mmol/L Carbon Dioxide 33 H (22-30) mmol/L Anion Gap 4 mmol/L BUN 19 H (7-17) mg/dL Creatinine 0.92 (0.52-1.04) mg/dL Est GFR (CKD-EPI)AfAm 71 (>60 ml/min/1.73 sqM) Est GFR (CKD-EPI)NonAf 61 (>60 ml/min/1.73 sqM) Glucose 133 H (74-99) mg/dL Plasma Lactic Acid Derek (0.7-2.0) mmol/L Calcium 9.9 (8.4-10.2) mg/dL Total Bilirubin 1.6 H (0.2-1.3) mg/dL AST 22 (14-36) U/L ALT 12 (4-34) U/L Alkaline Phosphatase 77 (38-126) U/L Total Protein 6.7 (6.3-8.2) g/dL Albumin 4.0 (3.5-5.0) g/dL Amylase 58 (30-110) U/L Lipase 64 (23-300) U/L Urine Color Yellow Urine Appearance Clear (Clear) Urine pH 5.5 (5.0-8.0) Ur Specific [place] 1.029 (1.001-1.035) Urine Protein 1+ H (Negative) Urine Glucose (UA) Negative (Negative) Urine Ketones 1+ H (Negative) Urine Blood Trace H (Negative) Urine Nitrite Negative (Negative) Urine Bilirubin Negative (Negative) Urine Urobilinogen <2.0 (<2.0) mg/dL Ur Leukocyte Esterase Negative (Negative) Urine RBC 2 (0-5) /hpf Urine WBC 1 (0-5) /hpf Ur Squamous Epith Cells 4 (0-4) /hpf Urine Bacteria Rare H (None) /hpf Hyaline Casts 8 H (0-2) /lpf Urine Mucus Many H (None) /hpf 07/26/20 Range/Units 14:50 WBC (3.8-10.6) k/uL RBC (3.80-5.40) m/uL Hgb (11.4-16.0) gm/dL Hct (34.0-46.0) % MCV (80.0-100.0) fL MCH (25.0-35.0) pg MCHC (31.0-37.0) g/dL RDW (11.5-15.5) % Plt Count (150-450) k/uL Neutrophils % % Lymphocytes % % Monocytes % % Eosinophils % % Basophils % % Neutrophils # (1.3-7.7) k/uL Lymphocytes # (1.0-4.8) k/uL Monocytes # (0-1.0) k/uL Eosinophils # (0-0.7) k/uL Basophils # (0-0.2) k/uL Sodium (137-145) mmol/L Potassium (3.5-5.1) mmol/L Chloride (98-107) mmol/L Carbon Dioxide (22-30) mmol/L Anion Gap mmol/L BUN (7-17) mg/dL Creatinine (0.52-1.04) mg/dL Est GFR (CKD-EPI)AfAm (>60 ml/min/1.73 sqM) Est GFR (CKD-EPI)NonAf (>60 ml/min/1.73 sqM) Glucose (74-99) mg/dL Plasma Lactic Acid Derek 1.0 (0.7-2.0) mmol/L Calcium (8.4-10.2) mg/dL Total Bilirubin (0.2-1.3) mg/dL AST (14-36) U/L ALT (4-34) U/L Alkaline Phosphatase (38-126) U/L Total Protein (6.3-8.2) g/dL Albumin (3.5-5.0) g/dL Amylase (30-110) U/L Lipase (23-300) U/L Urine Color Urine Appearance (Clear) Urine pH (5.0-8.0) Ur Specific [place] (1.001-1.035) Urine Protein (Negative) Urine Glucose (UA) (Negative) Urine Ketones (Negative) Urine Blood (Negative) Urine Nitrite (Negative) Urine Bilirubin (Negative) Urine Urobilinogen (<2.0) mg/dL Ur Leukocyte Esterase (Negative) Urine RBC (0-5) /hpf Urine WBC (0-5) /hpf Ur Squamous Epith Cells (0-4) /hpf Urine Bacteria (None) /hpf Hyaline Casts (0-2) /lpf Urine Mucus (None) /hpf Disposition Clinical Impression: Diverticulitis, Abdominal pain, Nausea Disposition: HOME SELF-CARE Condition: Stable Instructions (If sedation given, give patient instructions): Diverticulitis (ED) Additional Instructions: Please return to the Emergency Department if symptoms worsen or any other concerns. Take antibiotics as prescribed. Use Zofran for nausea. Follow up with PCP as discussed in 3-5 days. Prescriptions: Amoxicillin/Potassium Clav [Augmentin 875-125 Tablet] 1 tab PO BID 10 Days #20 tab Hydrocodone/Acetaminophen [[place] 5-325] 1 tab PO Q6HR PRN #10 tab PRN Reason: Pain Ondansetron Odt [Zofran Odt] 4 mg PO Q8HR PRN #10 tab PRN Reason: Nausea Is patient prescribed a controlled substance at d/c from ED?: Yes When asked, does pt state using other controlled substances?: No If prescribed controlled substance>3 days was MAPS reviewed?: Prescribed <3 Days If opioid is for acute pain is fill amount 7 days or less?: Yes If Rx opioid, was Start Talking consent form obtained?: Yes Referrals: Kimberly Molina MD [Primary Care Provider] - 1-2 days
[2020-07-26 15:02] LABS: Basophils % (A) 0 %; Eosinophils # (A) 0.2 k/uL (0-0.7); Eosinophils % (A) 1 %; HCT 49.2 % (34.0-46.0); HGB 15.8 gm/dL (11.4-16.0); Lymphocytes # (A) 1.3 k/uL (1.0-4.8); Lymphocytes % (A) 7 %; MCH 29.2 pg (25.0-35.0); Mean Platelet Volume 6.6; Monocytes # (A) 0.5 k/uL (0-1.0); Monocytes % (A) 3 %; Neutrophils # (A) 16.1 k/uL (1.3-7.7); Neutrophils % (A) 88 %; Platelet Count 232 k/uL (150-450); RDW 13.7 % (11.5-15.5); WBC 18.3 k/uL (3.8-10.6)
[2020-07-26 15:11] LABS: Calcium 9.9 mg/dL (8.4-10.2); Potassium 4.3 mmol/L (3.5-5.1); Total Bilirubin 1.6 mg/dL (0.2-1.3); Total Protein 6.7 g/dL (6.3-8.2)
[2020-07-26 15:31] LABS: Appearance,Urine Clear (Clear); Bilirubin,Urine Negative (Negative); Blood,Urine Trace (Negative); Color,Urine Yellow; Glucose,Urine (UA) Negative (Negative); Ketones,Urine 1+ (Negative); Leukocyte Esterase,Urine Negative (Negative); Nitrite,Urine Negative (Negative); PH, Urine 5.5 (5.0-8.0); Protein,Urine 1+ (Negative); Specific Gravity,Urine 1.029 (1.001-1.035); Urobilinogen,Urine <2.0 mg/dL (<2.0)
[2020-07-26 15:32] LABS: Bacteria,Urine Rare /hpf; Hyaline Casts,Urine 8 /lpf (0-2); Mucus,Urine Many /hpf; RBC,Urine 2 /hpf (0-5); Squamous Epithelial Cell,Urine 4 /hpf (0-4); WBC,Urine 1 /hpf (0-5)
--- NOTE | 2020-07-26 17:00 | CT ---
EXAMINATION TYPE: CT abdomen pelvis w con DATE OF EXAM: 07/26/2020 HISTORY: LLQ pain, vomiting CT DLP: 0.1mGycm Automated Exposure Control for Dose Reduction was Utilized. CONTRAST: CT scan of the abdomen and pelvis is performed without oral but with IV Contrast, patient injected wi th 100 mL of Isovue 300. COMPARISON: None. FINDINGS: LUNG BASES: [id number] bibasilar linear scarring and/or atelectasis. Mild cardiomegaly.. LIVER/GB: Cholecystectomy clips. PANCREAS: No significant abnormality is seen. SPLEEN: No significant abnormality is seen. ADRENALS: No significant abnormality is seen. KIDNEYS: Symmetric remeasuring the uptake and excretion without hydronephrosis seen bilaterally. Prom inent thin-walled simple parapelvic cyst centrally in the left kidney are noted. BOWEL: Banding weight loss device epigastric region. No suspicious small or large bowel dilatation. D iverticula throughout the left and sigmoid colon are present. There is moderate wall thickening with mild to moderate fat stranding left mid colon left midabdomen near coronal image 55. No well-formed f luid collection or abscess. No pneumoperitoneum. UTERUS/ADNEXA: Uterus is surgically absent or markedly atrophic. LYMPH NODES: No greater than 1cm abdominal or pelvic lymph nodes are appreciated. OSSEOUS STRUCTURES: Multilevel grade 1 anterolisthesis L3 on L4, L4 on L5, and and L5 on S1. Moderate disc space narrowing L2-L3 through the L5-S1 levels. [id number]-[id number] multilevel anterior and latera l spurring. Vacuum disc phenomenon mid lumbar levels. Prominent facet arthropathy lower lumbar spine. OTHER: Prior ventral wall hernia repair surgery with curvilinear density. No recurrent hernia defect. Rectus diastases noted. IMPRESSION: There is mild to moderate uncomplicated acute diverticulitis mid descending colon level l eft midabdomen as detailed above.
[2020-07-26] MEDS ORDERED: cefTRIAXone IN SWFI 1,000 MG/10 ML SYRINGE IVP STA (17:16)
[2020-07-26 17:36] VITALS: RESP 16; TEMP 98.1
[2020-07-26 18:09] VITALS: BP 123/76; PULSE 86
== END 2020-07-26 18:07 | disposition home or self-care (01) ==
LOC: EC 13:56
DX: K57.32 Diverticulitis of large intestine without perforation or abscess without bleeding (principal); J44.9 Chronic obstructive pulmonary disease, unspecified; I48.20 Chronic atrial fibrillation, unspecified; I10 Essential (primary) hypertension; Z79.01 Long term (current) use of anticoagulants; Z79.899 Other long term (current) drug therapy; Z90.710 Acquired absence of both cervix and uterus; Z90.49 Acquired absence of other specified parts of digestive tract
CPT/HCPCS: 36415; 80053; 82150; 83605; 83690; 85025; 81001; 74177; 99284; 96374; 96375 ×3; 96376; J2405; J0696; J2270; C9113; Q9967

== ENCOUNTER 2021-12-29 17:16 | Observation (INO) | payer MEDICARE ==
[2021-12-29] MEDS ORDERED: SODIUM CHLORIDE 0.9% 1,000 ML IV STA (18:10)
[2021-12-29] MEDS ORDERED: ONDANSETRON 4 MG/2 ML VIAL IVP STA ×2 (18:10→20:07)
--- NOTE | 2021-12-29 18:17 | ED ---
General Adult HPI - General Chief complaint: Abdominal Pain Stated complaint: revisit - abd pain, vomiting Time Seen by Provider: 12/29/21 17:40 Source: patient, RN notes reviewed Mode of arrival: wheelchair Limitations: no limitations - History of Present Illness Initial comments: 76-year-old female presents to the emergency Department with complaints of nausea, vomiting, and diarrhea, onset noon today. Patient attributes her current abdominal discomfort to repeated episodes of vomiting throughout the day. Reports a history of diverticulitis. Patient states she was recently hospitalized for CO2 retention; states she continues to be slightly short of breath, however this is normal for her. She is oxygen dependent. Denies fever, chills, headache, chest pain, constipation, dysuria, or hematuria. - Related Data Home Medications Medication Instructions Recorded Confirmed Apixaban [Eliquis] 5 mg PO BID 07/13/19 12/29/21 ALPRAZolam [Xanax] 0.25 mg PO HS PRN 07/26/20 12/29/21 Albuterol Nebulized [Ventolin 2.5 mg INHALATION RT-TID PRN 07/26/20 12/29/21 Nebulized] Budesonide/Glycopyr/Formoterol 2 puff INHALATION RT-BID 12/08/21 12/29/21 [Breztri Aerosphere Inhaler] Ipratropium-Albuterol Nebulize 3 ml INHALATION RT-QID 12/08/21 12/29/21 [Duoneb 0.5 mg-3 mg/3 ml Soln] Previous Rx's Medication Instructions Recorded Furosemide [Lasix] 40 mg PO BID@0900,1600 #60 tab 12/12/21 Allergies Allergy/AdvReac Type Severity Reaction Status Date / Time No Known Allergies Allergy Verified 12/29/21 18:38 Review of Systems ROS Statement: Those systems with pertinent positive or pertinent negative responses have been documented in the HPI. ROS Other: All systems not noted in ROS Statement are negative. Past Medical History Past Medical History: Atrial Fibrillation, COPD, Hypertension Additional Past Medical History / Comment(s): COPD, hypertension, secondary pulmonary hypertension, chronic hypoxic respiratory failure, chronic atrial fibrillation, hyperlipidemia, obstructive sleep apnea History of Any Multi-Drug Resistant Organisms: None Reported Additional Past Surgical History / Comment(s): Right lung lung lobectomy, hernia repair and the patient has a large anterior abdominal wall incision, hysterectomy, knee surgery, cholecystectomy Past Psychological History: No Psychological Hx Reported Smoking Status: Never smoker Past Alcohol Use History: Rare Past Drug Use History: None Reported - Past Family History Mother Family Medical History: Cancer Father Family Medical History: Coronary Artery Disease (CAD) General Exam Limitations: no limitations (This is a well-developed, well-nourished female who appears to be feeling poorly. Initial temperature 97.7, pulse 76, respirations 18, blood pressure 129/105, pulse ox 94% on room air.) General appearance: alert, other Eye exam: Present: normal appearance, PERRL, EOMI. Absent: scleral icterus, conjunctival injection, periorbital swelling ENT exam: Present: normal oropharynx Neck exam: Present: normal inspection, full ROM. Absent: tenderness, lymphadenopathy Respiratory exam: Present: other (Diminished lung sounds throughout all gan, no lungs are clear to auscultation with no adventitious noises.). Absent: r espiratory distress, wheezes, rales, rhonchi, stridor, chest wall tenderness Cardiovascular Exam: Present: regular rate, irregular rhythm, other (Atrial fibrillation baseline for patient) GI/Abdominal exam: Present: soft, normal bowel sounds, other (Patient is vomiting thin watery emesis yellow and green in color). Absent: distended, tenderness, guarding, rebound, rigid Back exam: Present: normal inspection. Absent: CVA tenderness (R), CVA tenderness (L) Neurological exam: Present: alert, oriented X3, CN II-XII intact Psychiatric exam: Present: normal affect, normal mood Skin exam: Present: warm, dry, intact, pallor Course Vital Signs 12/29/21 12/29/21 12/29/21 17:26 19:13 22:50 Temperature 97.7 F 98.1 F Pulse Rate 76 81 89 Pulse Rate [ Pulse Oximetery ] Respiratory 18 20 20 Rate Blood Pressure 129/105 128/71 140/72 Blood Pressure [Left Arm] O2 Sat by Pulse 94 L 97 95 Oximetry 12/30/21 12/30/21 01:00 03:17 Temperature 98.3 F Pulse Rate Pulse Rate [ 93 Pulse Oximetery ] Respiratory 20 18 Rate Blood Pressure Blood Pressure 130/79 [Left Arm] O2 Sat by Pulse 98 Oximetry Medical Decision Making - Medical Decision Making 76-year-old female with a past medical history of atrial fibrillation, COPD, and CO2 retention presents to the emergency department with complaints of nausea and vomiting. Upon exam, patient appears to be feeling poorly and observed to be vomiting bilious emesis. Patient arrives on oxygen via nasal cannula at 2 L due to her history of COPD. She reports feeling her normal short of breath, however does not appear to be labored or in distress. She recently completed a course of oral steroid after hospitalization for COPD-related illness. Lung sounds were clear though overall diminished. IV was inserted and patient was given gentle IV fluids and she has a history of fluid volume overload and is currently taking Lasix. Zofranx2 was given some improvement. Laboratory studies were reviewed showing abnormal electrolytes including sodium 135, potassium 2.9, and chloride 87. Carbon dioxide is 39. Renal function is improved from previous visit. Patient's urine shows trace protein and ketones. WBCs mildly elevated though this could be due to recent treatment with steroid or persistent vomiting. Patient is afebrile and not tachycardic; A.fib baseline. Her oxygen saturation is 94% or greater on 2 L. Chest x-ray is unremarkable. KUB shows nonacute abdomen. Patient was given potassium IV piggyback. I am concerned that the patient will not be able to tolerate oral potassium replacement. Discussed discharge versus hospitalization with patient and son. They are agreeable to admission for intractable nausea and vomiting, as well as hypokalemia. This patient's care was discussed with my attending . - Lab Data Result diagrams: 12/29/21 18:30 12/29/21 18:30 Lab Results 12/29/21 12/29/21 12/29/21 Range/Units 18:30 18:30 20:15 WBC 13.3 H (3.8-10.6) k/uL RBC 5.23 (3.80-5.40) m/uL Hgb 16.0 (11.4-16.0) gm/dL Hct 49.5 H (34.0-46.0) % MCV 94.6 (80.0-100.0) fL MCH 30.7 (25.0-35.0) pg MCHC 32.4 (31.0-37.0) g/dL RDW 13.3 (11.5-15.5) % Plt Count 187 (150-450) k/uL MPV 7.6 Neutrophils % 84 % Lymphocytes % 11 % Monocytes % 4 % Eosinophils % 1 % Basophils % 0 % Neutrophils # 11.1 H (1.3-7.7) k/uL Lymphocytes # 1.4 (1.0-4.8) k/uL Monocytes # 0.6 (0-1.0) k/uL Eosinophils # 0.1 (0-0.7) k/uL Basophils # 0.0 (0-0.2) k/uL Sodium 135 L (137-145) mmol/L Potassium 2.9 L (3.5-5.1) mmol/L Chloride 87 L (98-107) mmol/L Carbon Dioxide 39 H (22-30) mmol/L Anion Gap 9 mmol/L BUN 25 H (7-17) mg/dL Creatinine 1.09 H (0.52-1.04) mg/dL Est GFR (CKD-EPI)AfAm 57 (>60 ml/min/1.73 sqM) Est GFR (CKD-EPI)NonAf 49 (>60 ml/min/1.73 sqM) Glucose 130 H (74-99) mg/dL Calcium 10.0 (8.4-10.2) mg/dL Total Bilirubin 1.9 H (0.2-1.3) mg/dL AST 21 (14-36) U/L ALT 14 (4-34) U/L Alkaline Phosphatase 95 (38-126) U/L Total Protein 6.6 (6.3-8.2) g/dL Albumin 3.6 (3.5-5.0) g/dL Amylase 64 (30-110) U/L Lipase 78 (23-300) U/L Urine Color Yellow Urine Appearance Clear (Clear) Urine pH 5.0 (5.0-8.0) Ur Specific [place] 1.019 (1.001-1.035) Urine Protein Trace H (Negative) Urine Glucose (UA) Negative (Negative) Urine Ketones Trace H (Negative) Urine Blood Moderate H (Negative) Urine Nitrite Negative (Negative) Urine Bilirubin Negative (Negative) Urine Urobilinogen 2.0 (<2.0) mg/dL Ur Leukocyte Esterase Negative (Negative) Urine RBC 12 H (0-5) /hpf Urine WBC 1 (0-5) /hpf Ur Squamous Epith Cells 6 H (0-4) /hpf Hyaline Casts 5 H (0-2) /lpf Urine Mucus Rare H (None) /hpf - EKG Data Rate: normal EKG Comments: EKG was obtained at 1830 showing atrial fibrillation. Ventricular rate 75, MN interval indeterminate, QRS duration 80, QT/QTc 288/317. There are nonspecific ST and T-wave abnormalities. Interpretation is abnormal ECG. - Radiology Data Radiology results: report reviewed, image reviewed Two-view chest x-ray was obtained. Report was reviewed in its entirety. Impression per Dr. Clifton as no acute cardiopulmonary disease process. COPD changes. KUB x-ray was obtained. Report was reviewed in its entirety. Impression per Dr. Matthews is curvy linear ring density projected over the gastric fundus of uncertain significance. Nonacute abdomen. Disposition Clinical Impression: Hypokalemia, Intractable nausea and vomiting Disposition: ADMITTED IP TO THIS HOSP Condition: Serious
[2021-12-29 18:48] LABS: Basophils % (A) 0 %; Eosinophils # (A) 0.1 k/uL (0-0.7); Eosinophils % (A) 1 %; HCT 49.5 % (34.0-46.0); Lymphocytes # (A) 1.4 k/uL (1.0-4.8); Lymphocytes % (A) 11 %; MCH 30.7 pg (25.0-35.0); MCHC 32.4 g/dL (31.0-37.0); MCV 94.6 fL (80.0-100.0); Mean Platelet Volume 7.6; Monocytes # (A) 0.6 k/uL (0-1.0); Monocytes % (A) 4 %; Neutrophils # (A) 11.1 k/uL (1.3-7.7); Neutrophils % (A) 84 %; Platelet Count 187 k/uL (150-450); RBC 5.23 m/uL (3.80-5.40); RDW 13.3 % (11.5-15.5); WBC 13.3 k/uL (3.8-10.6)
--- NOTE | 2021-12-29 18:57 | XR ---
EXAMINATION TYPE: XR chest 2V DATE OF EXAM: 12/29/2021 6:44 PM COMPARISON:Multiple radiographs, with the most recent on 12/09/2021 TECHNIQUE: XR chest 2V Frontal and lateral views of the chest. CLINICAL INDICATION:Female, 76 years old with history of shortness of breath; FINDINGS: Lungs/Pleura: There is flattening of the diaphragm with increased lucency of the lungs. No evidence o f pneumothorax, pleural effusion or focal consolidation. Pulmonary vascularity: Unremarkable. Heart/mediastinum: Cardiomediastinal silhouette is enlarged and stable. Musculoskeletal: No acute osseous pathology. IMPRESSION: 1. No acute cardiopulmonary disease process. 2. COPD changes.
[2021-12-29 18:59] LABS: Albumin 3.6 g/dL (3.5-5.0); Potassium 2.9 mmol/L (3.5-5.1); Total Bilirubin 1.9 mg/dL (0.2-1.3); Total Protein 6.6 g/dL (6.3-8.2)
[2021-12-29 20:43] LABS: Appearance,Urine Clear (Clear); Bilirubin,Urine Negative (Negative); Blood,Urine Moderate (Negative); Color,Urine Yellow; Glucose,Urine (UA) Negative (Negative); Hyaline Casts,Urine 5 /lpf (0-2); Ketones,Urine Trace (Negative); Leukocyte Esterase,Urine Negative (Negative); Mucus,Urine Rare /hpf; Nitrite,Urine Negative (Negative); Protein,Urine Trace (Negative); RBC,Urine 12 /hpf (0-5); Specific Gravity,Urine 1.019 (1.001-1.035); Squamous Epithelial Cell,Urine 6 /hpf (0-4); WBC,Urine 1 /hpf (0-5)
[2021-12-29] MEDS ORDERED: POTASSIUM CHLORIDE 10 MEQ in WATER FOR INJECTION 1 100ML.BAG IVPB STA ×2 (21:53→23:04)
[2021-12-29] MEDS ORDERED: METOCLOPRAMIDE 5 MG/ML 2 ML VIAL IVP STA (21:54)
[2021-12-29] MEDS ORDERED: PROCHLORPERAZINE 5 MG TAB PO PRN (22:43)
[2021-12-29] MEDS ORDERED: ACETAMINOPHEN TAB 325 MG TAB PO PRN (22:43)
[2021-12-29] MEDS ORDERED: ONDANSETRON 4 MG/2 ML VIAL IVP PRN (22:43)
[2021-12-29] MEDS ORDERED: NALOXONE 0.4 MG/ML 1 ML VIAL IV PRN (22:43)
[2021-12-29] MEDS ORDERED: MORPHINE SULFATE 2 MG/ML SYRINGE IV PRN (22:43)
[2021-12-29] MEDS ORDERED: SODIUM CHLORIDE 0.9% 1,000 ML IV SCH (22:45)
[2021-12-29] MEDS ORDERED: ALPRAZolam 0.25 MG TAB PO PRN (23:07)
--- NOTE | 2021-12-29 23:39 | XR ---
EXAMINATION TYPE: XR KUB portable DATE OF EXAM: 12/29/2021 COMPARISON: NONE HISTORY: Abdominal discomfort TECHNIQUE: Single view upright FINDINGS: There is no sign of intestinal obstruction or pneumoperitoneum. There are clips from cholec ystectomy. There is some curvilinear density over the gastric fundus. Origin and location is not lukas r. There are no calcifications over the kidneys. There is no definite pleural effusion. IMPRESSION: Curvilinear ring density projected over the gastric fundus of uncertain significance. Non acute abdomen.
[2021-12-30 03:17] VITALS: BP 130/79; RESP 18; TEMP 98.3
[2021-12-30 06:27] LABS: Basophils % (A) 0 %; Eosinophils % (A) 0 %; HCT 42.8 % (34.0-46.0); HGB 14.1 gm/dL (11.4-16.0); Lymphocytes # (A) 1.4 k/uL (1.0-4.8); Lymphocytes % (A) 11 %; MCH 31.3 pg (25.0-35.0); MCHC 32.8 g/dL (31.0-37.0); MCV 95.4 fL (80.0-100.0); Mean Platelet Volume 7.1; Monocytes # (A) 0.6 k/uL (0-1.0); Monocytes % (A) 4 %; Neutrophils # (A) 10.7 k/uL (1.3-7.7); Neutrophils % (A) 83 %; Platelet Count 167 k/uL (150-450); RBC 4.49 m/uL (3.80-5.40); RDW 13.4 % (11.5-15.5); WBC 12.8 k/uL (3.8-10.6)
[2021-12-30 06:52] LABS: Calcium 9.5 mg/dL (8.4-10.2); Potassium 3.3 mmol/L (3.5-5.1)
[2021-12-30] MEDS: IPRATROPIUM-ALBUTEROL 3 ML NEB INHALATION SCH ×3 (07:32→14:58)
[2021-12-30] MEDS ORDERED: FORMOTEROL FUMARATE 20 MCG/2 ML NEBU INHALATION SCH (08:00)
[2021-12-30] MEDS ORDERED: IPRATROPIUM 0.5 MG/2.5 ML NEBU INHALATION SCH (08:00)
[2021-12-30] MEDS ORDERED: FLUTICASONE 110 MCG INHALER INHALATION SCH (08:00)
[2021-12-30] MEDS ORDERED: FAMOTIDINE 20 MG TAB PO SCH (09:00)
[2021-12-30] MEDS ORDERED: APIXABAN 5 MG TAB PO SCH (09:00)
[2021-12-30] MEDS ORDERED: Potassium Replacement Protocol 1 EACH MISC MISCELLANE PRN (09:21)
[2021-12-30] MEDS ORDERED: POTASSIUM CHLORIDE ER 20 MEQ TAB.ER PO ONE (09:21)
[2021-12-30 11:13] VITALS: PULSE 79
[2021-12-30] MEDS ORDERED: PANTOPRAZOLE 40 MG/10 ML VIAL IVP SCH (11:15)
[2021-12-30] MEDS ORDERED: POTASSIUM CHLORIDE ER 20 MEQ TAB.ER PO STA (12:27)
--- NOTE | 2021-12-30 12:40 | P.HPIM ---
History of Present Illness Patient was in some 76-year-old female came in with complaints of nausea vomiting and epigastric abdominal discomfort and burning sensation which started yesterday. Patient's symptoms improved at this time patient has chronic diarrh ea her diarrhea is not worse than usual. Patient denied any fever chills flulike symptoms patient is negative for COVID-19. Patient is hypokalemic and does take Lasix at home patient the potassium was 2.9 presently 2.3 potassium will be replaced again. Patient will need potassium supplementation and repeat basic metabolic profile need to be tested when she visits the her primary care physician. Patient does have history of COPD does use a 1.5-2 L of oxygen on daily basis. Patient's abdominal pain improved. REVIEW OF SYSTEMS: CONSTITUTIONAL: No fever, no malaise, no fatigue. HEENT: No recent visual problems or hearing problems. Denied any sore throat. CARDIOVASCULAR: No chest pain, orthopnea, PND, no palpitations, no syncope. PULMONARY: No shortness of breath, no cough, no hemoptysis. GASTROINTESTINAL: As mentioned in HPI NEUROLOGICAL: No headaches, no weakness, no numbness. HEMATOLOGICAL: Denies any bleeding or petechiae. GENITOURINARY: Denies any burning micturition, frequency, or urgency. MUSCULOSKELETAL/RHEUMATOLOGICAL: Denies any joint pain, swelling, or any muscle pain. ENDOCRINE: Denies any polyuria or polydipsia. The rest of the 14-point review of systems is negative. PHYSICAL EXAMINATION: GENERAL: The patient is alert and oriented x3, not in any acute distress. Well developed, well nourished. HEENT: Pupils are round and equally reacting to light. EOMI. No scleral icterus. No conjunctival pallor. Normocephalic, atraumatic. No pharyngeal erythema. No thyromegaly. CARDIOVASCULAR: S1 and S2 present. No murmurs, rubs, or gallops. PULMONARY: Chest is clear to auscultation, no wheezing or crackles. ABDOMEN: Soft, nontender, nondistended, normoactive bowel sounds. No palpable organomegaly. MUSCULOSKELETAL: No joint swelling or deformity. EXTREMITIES: No cyanosis, clubbing, or pedal edema. NEUROLOGICAL: Gross neurological examination did not reveal any focal deficits. SKIN: No rashes. Assessment and plan -Nausea vomiting abdominal discomfort: Secondary to possibly gastritis or peptic is a disease patient's symptoms improved and patient will be discharged on 14 days of empiric proton pulmonary better. -Hypokalemia secondary to diuretics patient per deciliter replaced here will be discharged on 20 mEq of potassium daily basis. And repeat basic metabolic profile upon her visit to primary care physician. Patient usually takes Lasix for peripheral edema -Leukocytosis reactive significant nausea vomiting -Chronic atrial fibrillation patient is presently rate controlled. -Chronic epigastric respiratory failure secondary to COPD without any acute exacerbation at this time patient has severe COPD with FEV1 of 37% -Hypertension -Hyperlipidemia -Obesity Patient will be discharged today: Past Medical History Past Medical History: Atrial Fibrillation, COPD, Hypertension Additional Past Medical History / Comment(s): COPD, hypertension, secondary pulmonary hypertension, chronic hypoxic respiratory failure, chronic atrial fibrillation, hyperlipidemia, obstructive sleep apnea History of Any Multi-Drug Resistant Organisms: None Reported Additional Past Surgical History / Comment(s): Right lung lung lobectomy, hernia repair and the patient has a large anterior abdominal wall incision, hysterectomy, knee surgery, cholecystectomy Past Anesthesia/Blood Transfusion Reactions: No Reported Reaction Past Psychological History: No Psychological Hx Reported Smoking Status: Never smoker Past Alcohol Use History: Rare Past Drug Use History: None Reported - Past Family History Mother Family Medical History: Cancer Father Family Medical History: Coronary Artery Disease (CAD) Medications and Allergies Home Medications Medication Instructions Recorded Confirmed Type Apixaban [Eliquis] 5 mg PO BID 07/13/19 12/29/21 History ALPRAZolam [Xanax] 0.25 mg PO HS PRN 07/26/20 12/29/21 History Albuterol Nebulized [Ventolin 2.5 mg INHALATION RT-TID PRN 07/26/20 12/29/21 History Nebulized] Budesonide/Glycopyr/Formoterol 2 puff INHALATION RT-BID 12/08/21 12/29/21 History [Breztri Aerosphere Inhaler] Ipratropium-Albuterol Nebulize 3 ml INHALATION RT-QID 12/08/21 12/29/21 History [Duoneb 0.5 mg-3 mg/3 ml Soln] Furosemide [Lasix] 40 mg PO BID@0900,1600 #60 tab 12/12/21 12/29/21 Rx Pantoprazole [Protonix] 40 mg PO DAILY #14 tab 12/30/21 Rx Potassium Chloride ER [K-Dur 20] 20 meq PO DAILY #30 tab 12/30/21 Rx Allergies Allergy/AdvReac Type Severity Reaction Status Date / Time No Known Allergies Allergy Verified 12/29/21 18:38 Physical Exam Vitals: Vital Signs Temp Pulse Pulse Resp BP BP Pulse Ox 12/30/21 11:12 79 12/30/21 11:02 78 12/30/21 03:17 98.3 F 93 18 130/79 98 12/30/21 01:00 20 12/29/21 22:50 98.1 F 89 20 140/72 95 12/29/21 19:13 81 20 128/71 97 12/29/21 17:26 97.7 F 76 18 129/105 94 L Intake and Output 12/29/21 12/30/21 12/30/21 22:59 06:59 14:59 Intake Total 1000 Balance 1000 Intake: Intake, IV Titration 1000 Amount Potassium Chloride 10 meq 100 In Water For Injection 1 100ml.bag @ 100 mls/hr IVPB ONCE STA Rx#: [id number] Sodium Chloride 0.9% 1, 900 000 ml @ 75 mls/hr IV . [id number] [facility] Rx#:[id number] Other: Voiding Method External Catheter External Catheter # Voids 2 Weight 99.79 kg 99.79 kg Results CBC & Chem 7: 12/30/21 06:04 12/30/21 06:04 Labs: Abnormal Lab Results - Last 24 Hours (Table) 12/29/21 12/29/21 12/29/21 Range/Units 18:30 18:30 20:15 WBC 13.3 H (3.8-10.6) k/uL Hct 49.5 H (34.0-46.0) % Neutrophils # 11.1 H (1.3-7.7) k/uL Sodium 135 L (137-145) mmol/L Potassium 2.9 L (3.5-5.1) mmol/L Chloride 87 L (98-107) mmol/L Carbon Dioxide 39 H (22-30) mmol/L BUN 25 H (7-17) mg/dL Creatinine 1.09 H (0.52-1.04) mg/dL Glucose 130 H (74-99) mg/dL Total Bilirubin 1.9 H (0.2-1.3) mg/dL Urine Protein Trace H (Negative) Urine Ketones Trace H (Negative) Urine Blood Moderate H (Negative) Urine RBC 12 H (0-5) /hpf Ur Squamous Epith Cells 6 H (0-4) /hpf Hyaline Casts 5 H (0-2) /lpf Urine Mucus Rare H (None) /hpf 12/30/21 12/30/21 Range/Units 06:04 06:04 WBC 12.8 H (3.8-10.6) k/uL Hct (34.0-46.0) % Neutrophils # 10.7 H (1.3-7.7) k/uL Sodium 136 L (137-145) mmol/L Potassium 3.3 L (3.5-5.1) mmol/L Chloride 93 L (98-107) mmol/L Carbon Dioxide 39 H (22-30) mmol/L BUN 26 H (7-17) mg/dL Creatinine (0.52-1.04) mg/dL Glucose 120 H (74-99) mg/dL Total Bilirubin (0.2-1.3) mg/dL Urine Protein (Negative) Urine Ketones (Negative) Urine Blood (Negative) Urine RBC (0-5) /hpf Ur Squamous Epith Cells (0-4) /hpf Hyaline Casts (0-2) /lpf Urine Mucus (None) /hpf Thrombosis Risk Factor Assmnt - Choose All That Apply Any of the Below Risk Factors Present?: Yes Each Factor Represents 1 point: Abnormal pulmonary function (COPD), Obesity (BMI >25) Other Risk Factors: Yes Each Risk Factor Represents 3 Points: Age 75 years or older Other congenital or acquired thrombophilia - If yes, enter type in comment: No Thrombosis Risk Factor Assessment Total Risk Factor Score: 5 Thrombosis Risk Factor Assessment Level: High Risk
--- NOTE | 2021-12-30 12:40 | P.DS ---
Providers Date of admission: 12/29/21 21:47 Attending physician: Adrienne Larios Primary care physician: Kimberly Molina [place] Hospital Course: Please refer to history of present illness for further details Patient Condition at Discharge: Serious Plan - Discharge Summary Discharge Rx Participant: No New Discharge Prescriptions: New Potassium Chloride ER [K-Dur 20] 20 meq PO DAILY #30 tab Pantoprazole [Protonix] 40 mg PO DAILY #14 tab Continue Apixaban [Eliquis] 5 mg PO BID Albuterol Nebulized [Ventolin Nebulized] 2.5 mg INHALATION RT-TID PRN PRN Reason: Shortness Of Breath ALPRAZolam [Xanax] 0.25 mg PO HS PRN PRN Reason: Insomnia Ipratropium-Albuterol Nebulize [Duoneb 0.5 mg-3 mg/3 ml Soln] 3 ml INHALATION RT-QID Furosemide [Lasix] 40 mg PO BID@0900,1600 #60 tab Budesonide/Glycopyr/Formoterol [Breztri Aerosphere Inhaler] 2 puff INHALATION RT-BID Discharge Medication List Apixaban [Eliquis] 5 mg PO BID 07/13/19 [History] ALPRAZolam [Xanax] 0.25 mg PO HS PRN 07/26/20 [History] Albuterol Nebulized [Ventolin Nebulized] 2.5 mg INHALATION RT-TID PRN 07/26/20 [History] Budesonide/Glycopyr/Formoterol [Breztri Aerosphere Inhaler] 2 puff INHALATION RT-BID 12/08/21 [History] Ipratropium-Albuterol Nebulize [Duoneb 0.5 mg-3 mg/3 ml Soln] 3 ml INHALATION RT-QID 12/08/21 [History] Furosemide [Lasix] 40 mg PO BID@0900,1600 #60 tab 12/12/21 [Rx] Pantoprazole [Protonix] 40 mg PO DAILY #14 tab 12/30/21 [Rx] Potassium Chloride ER [K-Dur 20] 20 meq PO DAILY #30 tab 12/30/21 [Rx] Follow up Appointment(s)/Referral(s): Kimberly Molina MD [Primary Care Provider] - 3 Days Discharge Disposition: HOME SELF-CARE
[2021-12-31] MEDS ORDERED: FAMOTIDINE 20 MG TAB PO SCH (09:00)
== END 2021-12-30 15:30 | disposition home or self-care (01) ==
LOC: EC 17:16 → 6NMEDSUR 21:47
PROVIDERS: ADMIT Hospitalist; ATTEND Hospitalist
DX: R10.13 Epigastric pain (principal); R11.2 Nausea with vomiting, unspecified; E87.6 Hypokalemia; T50.2X5A Adverse effect of carbonic-anhydrase inhibitors, benzothiadiazides and other diuretics, initial encounter; J96.11 Chronic respiratory failure with hypoxia; D72.829 Elevated white blood cell count, unspecified; R19.7 Diarrhea, unspecified; I48.20 Chronic atrial fibrillation, unspecified; J44.9 Chronic obstructive pulmonary disease, unspecified; Z20.822 Contact with and (suspected) exposure to COVID-19; I10 Essential (primary) hypertension; R60.0 Localized edema; G47.33 Obstructive sleep apnea (adult) (pediatric); E78.5 Hyperlipidemia, unspecified; E66.9 Obesity, unspecified; Z68.41 Body mass index [BMI] 40.0-44.9, adult; R93.3 Abnormal findings on diagnostic imaging of other parts of digestive tract; Z79.01 Long term (current) use of anticoagulants; Z79.899 Other long term (current) drug therapy; K57.90 Diverticulosis of intestine, part unspecified, without perforation or abscess without bleeding; Z90.2 Acquired absence of lung [part of]; Z90.49 Acquired absence of other specified parts of digestive tract; Z90.710 Acquired absence of both cervix and uterus; Z99.81 Dependence on supplemental oxygen; Z82.49 Family history of ischemic heart disease and other diseases of the circulatory system; Z80.9 Family history of malignant neoplasm, unspecified; Z79.51 Long term (current) use of inhaled steroids
CPT/HCPCS: 96376 ×2; 96361; 96365; 96366; 96375 ×2; 99285; 36415; 94640; 93005; 80053; 80048; 82150; 83690; 83735; 85025 ×2; 81001; 87635; 71046; 74018; G0378 ×2; J2765; J2405 ×2; J3480 ×2; C9113

== ENCOUNTER 2022-11-01 12:41 | Inpatient (IN) | payer MEDICARE ==
[2022-11-01] MEDS ORDERED: RX INFO: IV CONTRAST WAS GIVEN 1 EACH MISC MISCELLANE PRN (14:00)
--- NOTE | 2022-11-01 14:59 | US ---
EXAMINATION TYPE: US venous doppler duplex LE LT DATE OF EXAM: 11/01/2022 2:48 PM COMPARISON: NONE CLINICAL HISTORY: LLE swelling, eval for dvt. SIDE PERFORMED: Left TECHNIQUE: The lower extremity deep venous system is examined utilizing real time linear array sonog terrie with graded compression, doppler sonography and color-flow sonography. VESSELS IMAGED: Common Femoral Vein Deep Femoral Vein Greater Saphenous Vein * Femoral Vein Popliteal Vein Small Saphenous Vein * Proximal Calf Veins (* superficial vessels) Left Leg: Negative for DVT, Grayscale, color doppler, spectral doppler imaging performed of the deep veins of the lower extremities. There is normal flow, compressibility, vascular waveforms. IMPRESSION: No evidence for deep vein to thrombosis most of the left lower extremity
[2022-11-01 16:35] LABS: Basophils % (A) 0 %; Eosinophils # (A) 0.2 k/uL (0-0.7); Eosinophils % (A) 2 %; HCT 40.7 % (34.0-46.0); HGB 13.4 gm/dL (11.4-16.0); Hypochromasia Slight; Lymphocytes # (A) 1.5 k/uL (1.0-4.8); Lymphocytes % (A) 14 %; MCH 31.9 pg (25.0-35.0); MCHC 32.8 g/dL (31.0-37.0); MCV 97.3 fL (80.0-100.0); Mean Platelet Volume 8.1; Monocytes # (A) 0.5 k/uL (0-1.0); Monocytes % (A) 4 %; Neutrophils % (A) 78 %; Platelet Count 229 k/uL (150-450); RBC 4.18 m/uL (3.80-5.40); WBC 10.3 k/uL (3.8-10.6)
[2022-11-01 16:46] LABS: Partial Thromboplastin Time 22.7 sec (22.0-30.0); Prothrombin Time 10.6 sec (9.0-12.0)
[2022-11-01 16:53] LABS: Albumin 3.8 g/dL (3.5-5.0); Calcium 9.7 mg/dL (8.4-10.2); Magnesium 2.2 mg/dL (1.6-2.3); Total Protein 6.8 g/dL (6.3-8.2)
[2022-11-01 17:06] LABS: Potassium 5.1 mmol/L (3.5-5.1)
--- NOTE | 2022-11-01 17:51 | XR ---
EXAMINATION TYPE: XR chest 2V DATE OF EXAM: 11/01/2022 5:13 PM COMPARISON: Chest radiographs from 11/01/2022 TECHNIQUE: XR chest 2V Frontal and lateral views of the chest. CLINICAL INDICATION:Female, 77 years old with history of difficulty breathing; FINDINGS: Lungs/Pleura: There is no evidence of pleural effusion, focal consolidation, or pneumothorax. Pulmonary vascularity: Unremarkable. Heart/mediastinum: Cardiomediastinal silhouette is enlarged and stable. Prominent right pulmonary hil ar region similar dating back to 2019. Musculoskeletal: No acute osseous pathology. Remote injury to the right proximal humerus. IMPRESSION: Cardiomegaly and mild pulmonary vascular congestion. Correlate with BNP for congestive heart failure.
--- NOTE | 2022-11-01 18:05 | CT ---
EXAMINATION TYPE: CT brain cspine wo con CT DLP: 1607.8 mGycm, Automated exposure control for dose reduction was used. DATE OF EXAM: 11/01/2022 5:50 PM COMPARISON: 12/08/2021 CLINICAL INDICATION:Female, 77 years old with history of fall; recent falls TECHNIQUE: Brain: Multiple axial CT images of the brain were obtained without IV contrast. Cspine: Axial CT images from the skull base to the inferior aspect of T2 we obtained without intraven ous contrast. Coronal and sagittal reformatted images were also reviewed. FINDINGS: Brain: Extra-axial spaces: No abnormal extra-axial fluid collections. Ventricular system: Dilatation in proportion to cerebral atrophy. Cerebral parenchyma: Cerebral atrophy. No acute intraparenchymal hemorrhage or mass effect. The granda -white junction is well differentiated. Scattered hypoattenuating areas are seen within the white mat ter. Cerebellum: Unremarkable. Mass effect: No evidence of midline shift. Intracranial vasculature: unremarkable Soft tissues: Normal. Calvarium/osseous structures: No depressed skull fracture. Paranasal sinuses and mastoid air cells: Clear. Visualized orbits: Bilateral aphakia Cervical spine: Fracture: None. Osseous structures: Multilevel degenerative disc disease changes with endplate spurring and disc oste ophyte complex's. Vertebral alignment: Within normal limits. Spinal canal/Neural Foramina: No evidence of significant spinal canal narrowing. No evidence for sign ificant neural foraminal stenosis. Neck soft tissues: Prevertebral soft tissues are within normal limits. Other: The airway is patent. Paraseptal emphysema changes most proximal right lung apex.. IMPRESSION: 1. No acute intracranial process. 2. Nonspecific white matter changes, likely secondary to chronic small vessel ischemic disease. 3. No evidence of cervical spine fracture. 4. Mild multilevel degenerative disc disease.
--- NOTE | 2022-11-01 18:09 | ED ---
General Adult HPI - General Chief complaint: Fall Stated complaint: SOB, bilat feet swelling Time Seen by Provider: 11/01/22 13:53 Source: patient, RN notes reviewed, old records reviewed Mode of arrival: ambulatory Limitations: no limitations - History of Present Illness Initial comments: Patient is a 77-year-old female with past medical history remarkable for CHF, atrial fibrillation on blood thinners, COPD, hypertension who presents emergency Department complaining of worsening bilateral lower extremity edema. Was also sent in for evaluation due to significant bruising located over the left lower extremity after a fall last week. Patient fell last Tuesday or . Is currently Tuesday. Initially had bruising from falling forward onto her knee. There is currently a blister located that this time. States the bruising has gotten worse and now encompasses the entire left lower extremity from up near her groin down to her feet. Denies any diffuse pain. Endorses pain primarily over the knee. PCP saw her today and recommended she be evaluated. Believes it is just bruising from the fall, and patient is on blood thinners. She has no other acute complaints at this time. No other pain. He does endorse worsening orthopnea, PND. Does endorse worsening bilateral lower extremity edema that has progressively gotten worse. Endorses a dry cough. Endorses exertional dyspnea, but is worse even getting up to some into the bed. Patient presents for further evaluation at this time. - Related Data Home Medications Medication Instructions Recorded Confirmed Apixaban [Eliquis] 5 mg PO BID 07/13/19 11/01/22 Albuterol Nebulized [Ventolin 2.5 mg INHALATION RT-TID PRN 07/26/20 11/01/22 Nebulized] Budesonide/Glycopyr/Formoterol 2 puff INHALATION RT-BID 12/08/21 11/01/22 [Breztri Aerosphere Inhaler] Ipratropium-Albuterol Nebulize 3 ml INHALATION RT-QID 12/08/21 11/01/22 [Duoneb 0.5 mg-3 mg/3 ml Soln] Losartan-Hctz 50-12.5 mg [Hyzaar 1 tab PO DAILY 11/01/22 11/01/22 50-12.5] hydroCHLOROthiazide [Hydrodiuril] 12.5 mg PO DAILY 11/01/22 11/01/22 Allergies Allergy/AdvReac Type Severity Reaction Status Date / Time No Known Allergies Allergy Verified 11/01/22 14:43 Review of Systems ROS Statement: Those systems with pertinent positive or pertinent negative responses have been documented in the HPI. Review of Systems: CONST: Denies fever EYES: Denies blurry vision ENT: Denies nasal congestion C/V: Denies Chest pain RESP: Endorses shortness of breath GI: Denies abdominal pain : Denies dysuria SKIN: Endorses left lower extremity bruising MSK: Denies joint pain. NEURO: Denies headache ROS Other: All systems not noted in ROS Statement are negative. Past Medical History Past Medical History: Atrial Fibrillation, COPD, Hypertension Additional Past Medical History / Comment(s): COPD, hypertension, secondary pulmonary hypertension, chronic hypoxic respiratory failure, chronic atrial fibrillation, hyperlipidemia, obstructive sleep apnea History of Any Multi-Drug Resistant Organisms: None Reported Additional Past Surgical History / Comment(s): Right lung lung lobectomy, hernia repair and the patient has a large anterior abdominal wall incision, hysterectomy, knee surgery, cholecystectomy Past Anesthesia/Blood Transfusion Reactions: No Reported Reaction Past Psychological History: No Psychological Hx Reported Smoking Status: Never smoker Past Alcohol Use History: None Reported Past Drug Use History: None Reported - Past Family History Mother Family Medical History: Cancer Father Family Medical History: Coronary Artery Disease (CAD) General Exam - General Exam Comments Initial Comments: General: Appears in no acute distress. HEAD: Normal with no signs of head trauma. EYES: PERRLA, EOMI, conjunctiva normal, no discharge. ENT: Hearing grossly intact, normal oropharynx. RESPIRATORY: Clear breath sounds bilaterally. No wheezes, rales, or rhonchi. Normoxic on her baseline 2 L nasal cannula. C/V: Irregular rate and rhythm. S1 and S2 auscultated. Bilateral symmetrical pitting edema in both lower extremities. Peripheral pulses 2+ and intact throughout. ABD: Abd is soft, nontender, nondistended EXT: Normal range of motion, no obvious deformity. Tenderness to palpation over the left anterior knee. SKIN: Bruising, discoloration to the left lower extremity. Neurovascularly intact throughout. I believe it is likely secondary to trauma on blood thinners. She fell last week and the bruise has spread since that time. NEURO: Alert and oriented 4. No focal deficits. Limitations: no limitations Course Vital Signs 11/01/22 11/01/22 11/01/22 13:20 13:51 17:25 Temperature 98.5 F Pulse Rate 80 86 81 Respiratory 18 22 20 Rate Blood Pressure 120/68 116/54 O2 Sat by Pulse 89 L 95 94 L Oximetry 11/01/22 11/01/22 11/01/22 20:27 20:45 20:56 Temperature Pulse Rate 74 81 85 Respiratory 20 Rate Blood Pressure 132/86 O2 Sat by Pulse 99 Oximetry Medical Decision Making - Medical Decision Making Based on the patient's presentation and physical exam, patient fell on blood thinners last week, and is currently having left lower extremity bruising as well as signs and symptoms of the C7 exacerbation. Was sent by her PCP for further evaluation. We will obtain a troponin laboratory studies. Vital signs with neck supple limits at this time. She was in agreement this plan. Imaging of the left lower extremity will also be obtained. EKG showed no signs of acute ischemia. Chest x-ray as interpreted by myself reveals evidence of mild bilateral pulmonary vascular congestion concerning for CHF exacerbation. Patient does have a venous duplex of the left lower extremity completed which shows no evidence of DVT. CT head and cervical spine in the setting of fall on thinners as interpreted by myself reveals no evidence of acute intracranial process. Radiology does note chronic changes. No evidence of cervical spine injury. CTA of the left lower extremity was obtained and interpreted by myself as showing no obvious signs of fracture, active bleeding but there is a hematoma anterior to the knee likely from the fall at the site of the blister. Laboratory studies laboratory studies were remarkable for a eleva reyna BNP of 1600. Troponin is determined. Covid and fluent negative. Remainder the labs are unremarkable. On reevaluation, I discussed the findings with the patient. There was a long delay in obtaining CT imaging due to the ER wait times and wait for the CT scanner. This did delay admission. Patient was understanding, and we discussed that I believe she is having a mild CHF exacerbation in addition to having the bruising over the left lower extremity. I would like to admit her for the CHF exacerbation. She was in agreement this plan. Cardiology was consulted. She started on IV Lasix. Echo was ordered. I spoke with the admitting team, ELISA Holbrook of [facility] who accepted the patient. Patient was admitted in stable condition. - Lab Data Result diagrams: 11/01/22 16:22 12/26/22 16:22 Lab Results 11/01/22 11/01/22 11/01/22 Range/Units 16:22 16:22 16:22 WBC 10.3 (3.8-10.6) k/uL RBC 4.18 (3.80-5.40) m/uL Hgb 13.4 (11.4-16.0) gm/dL Hct 40.7 (34.0-46.0) % MCV 97.3 (80.0-100.0) fL MCH 31.9 (25.0-35.0) pg MCHC 32.8 (31.0-37.0) g/dL RDW 15.0 (11.5-15.5) % Plt Count 229 (150-450) k/uL MPV 8.1 Neutrophils % 78 % Lymphocytes % 14 % Monocytes % 4 % Eosinophils % 2 % Basophils % 0 % Neutrophils # 8.0 H (1.3-7.7) k/uL Lymphocytes # 1.5 (1.0-4.8) k/uL Monocytes # 0.5 (0-1.0) k/uL Eosinophils # 0.2 (0-0.7) k/uL Basophils # 0.0 (0-0.2) k/uL Hypochromasia Slight PT 10.6 (9.0-12.0) sec INR 1.0 (<1.2) APTT 22.7 (22.0-30.0) sec Sodium 138 (137-145) mmol/L Potassium 5.1 (3.5-5.1) mmol/L Chloride 97 L (98-107) mmol/L Carbon Dioxide 37 H (22-30) mmol/L Anion Gap 4 mmol/L BUN 50 H (7-17) mg/dL Creatinine 0.91 (0.52-1.04) mg/dL Est GFR (CKD-EPI)AfAm 70 (>60 ml/min/1.73 sqM) Est GFR (CKD-EPI)NonAf 61 (>60 ml/min/1.73 sqM) Glucose 89 (74-99) mg/dL Plasma Lactic Acid Derek (0.7-2.0) mmol/L Calcium 9.7 (8.4-10.2) mg/dL Magnesium 2.2 (1.6-2.3) mg/dL Total Bilirubin 2.0 H (0.2-1.3) mg/dL AST 42 H (14-36) U/L ALT 17 (4-34) U/L Alkaline Phosphatase 77 (38-126) U/L Creatine Kinase (30-135) U/L Troponin I (0.000-0.034) ng/mL NT-Pro-B Natriuret Pep pg/mL Total Protein 6.8 (6.3-8.2) g/dL Albumin 3.8 (3.5-5.0) g/dL Urine Color Urine Appearance (Clear) Urine pH (5.0-8.0) Ur Specific [place] (1.001-1.035) Urine Protein (Negative) Urine Glucose (UA) (Negative) Urine Ketones (Negative) Urine Blood (Negative) Urine Nitrite (Negative) Urine Bilirubin (Negative) Urine Urobilinogen (<2.0) mg/dL Ur Leukocyte Esterase (Negative) Influenza Type A (PCR) (Not Detectd) Influenza Type B (PCR) (Not Detectd) RSV (PCR) (Not Detectd) SARS-CoV-2 (PCR) (Not Detectd) 11/01/22 11/01/22 11/01/22 Range/Units 16:22 16:22 16:22 WBC (3.8-10.6) k/uL RBC (3.80-5.40) m/uL Hgb (11.4-16.0) gm/dL Hct (34.0-46.0) % MCV (80.0-100.0) fL MCH (25.0-35.0) pg MCHC (31.0-37.0) g/dL RDW (11.5-15.5) % Plt Count (150-450) k/uL MPV Neutrophils % % Lymphocytes % % Monocytes % % Eosinophils % % Basophils % % Neutrophils # (1.3-7.7) k/uL Lymphocytes # (1.0-4.8) k/uL Monocytes # (0-1.0) k/uL Eosinophils # (0-0.7) k/uL Basophils # (0-0.2) k/uL Hypochromasia PT (9.0-12.0) sec INR (<1.2) APTT (22.0-30.0) sec Sodium (137-145) mmol/L Potassium (3.5-5.1) mmol/L Chloride (98-107) mmol/L Carbon Dioxide (22-30) mmol/L Anion Gap mmol/L BUN (7-17) mg/dL Creatinine (0.52-1.04) mg/dL Est GFR (CKD-EPI)AfAm (>60 ml/min/1.73 sqM) Est GFR (CKD-EPI)NonAf (>60 ml/min/1.73 sqM) Glucose (74-99) mg/dL Plasma Lactic Acid Derek 1.2 (0.7-2.0) mmol/L Calcium (8.4-10.2) mg/dL Magnesium (1.6-2.3) mg/dL Total Bilirubin (0.2-1.3) mg/dL AST (14-36) U/L ALT (4-34) U/L Alkaline Phosphatase (38-126) U/L Creatine Kinase (30-135) U/L Troponin I 0.019 (0.000-0.034) ng/mL NT-Pro-B Natriuret Pep 1670 pg/mL Total Protein (6.3-8.2) g/dL Albumin (3.5-5.0) g/dL Urine Color Urine Appearance (Clear) Urine pH (5.0-8.0) Ur Specific [place] (1.001-1.035) Urine Protein (Negative) Urine Glucose (UA) (Negative) Urine Ketones (Negative) Urine Blood (Negative) Urine Nitrite (Negative) Urine Bilirubin (Negative) Urine Urobilinogen (<2.0) mg/dL Ur Leukocyte Esterase (Negative) Influenza Type A (PCR) (Not Detectd) Influenza Type B (PCR) (Not Detectd) RSV (PCR) (Not Detectd) SARS-CoV-2 (PCR) (Not Detectd) 11/01/22 11/01/22 11/01/22 Range/Units 16:22 18:02 19:06 WBC (3.8-10.6) k/uL RBC (3.80-5.40) m/uL Hgb (11.4-16.0) gm/dL Hct (34.0-46.0) % MCV (80.0-100.0) fL MCH (25.0-35.0) pg MCHC (31.0-37.0) g/dL RDW (11.5-15.5) % Plt Count (150-450) k/uL MPV Neutrophils % % Lymphocytes % % Monocytes % % Eosinophils % % Basophils % % Neutrophils # (1.3-7.7) k/uL Lymphocytes # (1.0-4.8) k/uL Monocytes # (0-1.0) k/uL Eosinophils # (0-0.7) k/uL Basophils # (0-0.2) k/uL Hypochromasia PT (9.0-12.0) sec INR (<1.2) APTT (22.0-30.0) sec Sodium (137-145) mmol/L Potassium (3.5-5.1) mmol/L Chloride (98-107) mmol/L Carbon Dioxide (22-30) mmol/L Anion Gap mmol/L BUN (7-17) mg/dL Creatinine (0.52-1.04) mg/dL Est GFR (CKD-EPI)AfAm (>60 ml/min/1.73 sqM) Est GFR (CKD-EPI)NonAf (>60 ml/min/1.73 sqM) Glucose (74-99) mg/dL Plasma Lactic Acid Derek (0.7-2.0) mmol/L Calcium (8.4-10.2) mg/dL Magnesium (1.6-2.3) mg/dL Total Bilirubin (0.2-1.3) mg/dL AST (14-36) U/L ALT (4-34) U/L Alkaline Phosphatase (38-126) U/L Creatine Kinase 41 (30-135) U/L Troponin I (0.000-0.034) ng/mL NT-Pro-B Natriuret Pep pg/mL Total Protein (6.3-8.2) g/dL Albumin (3.5-5.0) g/dL Urine Color Light Yellow Urine Appearance Clear (Clear) Urine pH 5.0 (5.0-8.0) Ur Specific [place] >1.050 H (1.001-1.035) Urine Protein Negative (Negative) Urine Glucose (UA) Negative (Negative) Urine Ketones Trace H (Negative) Urine Blood Negative (Negative) Urine Nitrite Negative (Negative) Urine Bilirubin Negative (Negative) Urine Urobilinogen <2.0 (<2.0) mg/dL Ur Leukocyte Esterase Negative (Negative) Influenza Type A (PCR) Not Detected (Not Detectd) Influenza Type B (PCR) Not Detected (Not Detectd) RSV (PCR) Not Detected (Not Detectd) SARS-CoV-2 (PCR) Not Detected (Not Detectd) - EKG Data -: EKG Interpreted by Me EKG Comments: 12-lead Electrocardiogram Interpretation Note EKG was reviewed and interpreted by myself. 12-lead ECG performed at 1458 is interpreted by me as revealing atrial fibrillation at a rate of 83 beats per minute. [place] is normal. QRS duration is 82 ms, QTc is 375 ms.. There were no ST or T wave abnormalities to suggest myocardial ischemia or injury. R wave progression across the precordium was satisfactory. By my interpretation this EKG is non-diagnostic for acute ischemia. When compared with EKG from 12/29/2021, no significant change. Disposition Clinical Impression: CHF exacerbation, Superficial bruising of lower leg Disposition: ADMITTED IP TO THIS HOSP Condition: Stable Time of Disposition: 19:00
--- NOTE | 2022-11-01 18:45 | CT ---
EXAMINATION TYPE: CT lower extremity LT w con CT DLP: 1647.5 mGycm, Automated exposure control for dose reduction was used. DATE OF EXAM: 11/01/2022 6:14 PM COMPARISON: None CLINICAL INDICATION:Female, 77 years old with history of bruising after fall, blister on knee. on thi nners, recent falls. left leg bruised all the way down. blister on knee TECHNIQUE: Axial images were obtained of the left leg . Additional coronal and sagittal reformatted images and soft tissue and bone window were obtained for review. 3-D reconstruction was created on a separate workstation. Contrast used:100 mL of Isovue 370 with IV Contrast, Oral contrast used: None FINDINGS: There is no evidence of fracture, subluxation, or dislocation. Mild degeneration changes of the left hip with osteophyte formation acetabulum and joint space narrowing most pronounced posterio rly. Postsurgical changes of left knee with total knee arthroplasty changes. Streak artifact does godinez it evaluation of the knee. There is soft tissue edema throughout the lower extremities left greater t macias right. Visualized portions of the right knee are intact. There is fluid collection anterior to th e knee with suspected hematoma measuring 8.1 x 1.9 x 6.6 cm, anterior to the knee and in the epidermi s is a exophytic blister measuring 2.7 x 0.5 cm long the medial thigh. No joint effusion is identifie d. No focal muscular atrophy or edema is identified. No radiopaque foreign body identified. Colonic diverticulosis. Visualized pelvis is intact. Hysterectomy changes. IMPRESSION: 1. Left knee arthroplasty changes without evidence for periprosthetic fracture. There is some limita tion due to streak artifact. 2. Left prepatellar suspected subcutaneous and epidermal hematomas. 3. Lower extremity edema bilaterally. Correlate for systemic etiologies such as congestive heart cande lure. 4. Moderate left hip osteoarthrosis. 5. Medial distal thigh suspected cluster as provided in the history.
[2022-11-01 19:27] LABS: Appearance,Urine Clear (Clear); Bilirubin,Urine Negative (Negative); Blood,Urine Negative (Negative); Color,Urine Light Yellow; Glucose,Urine (UA) Negative (Negative); Ketones,Urine Trace (Negative); Leukocyte Esterase,Urine Negative (Negative); Nitrite,Urine Negative (Negative); Protein,Urine Negative (Negative); Urobilinogen,Urine <2.0 mg/dL (<2.0)
[2022-11-01 19:30] LABS: Specific Gravity,Urine >1.050 (1.001-1.035)
[2022-11-01] MEDS ORDERED: NALOXONE 0.4 MG/ML 1 ML VIAL IV PRN (19:43)
[2022-11-01] MEDS ORDERED: ASPIRIN 81 MG PO STA (19:45)
[2022-11-01] MEDS ORDERED: ALBUTEROL NEBULIZED 2.5 MG/3 ML INHALATION PRN (19:46)
[2022-11-01] MEDS ORDERED: IPRATROPIUM 0.5 MG/2.5 ML NEBU INHALATION SCH (20:00)
[2022-11-01] MEDS: SYMBICORT 160-4.5 MCG INHALER INHALATION SCH (20:45)
[2022-11-01] MEDS: IPRATROPIUM-ALBUTEROL 3 ML NEB INHALATION SCH (20:45)
[2022-11-01] MEDS: APIXABAN 5 MG TAB PO SCH (21:44)
[2022-11-01] MEDS: FUROSEMIDE 10 MG/ML 4 ML VIAL IV SCH (21:44)
[2022-11-02] MEDS ORDERED: MELATONIN 5 MG TABLET PO STA (01:31)
[2022-11-02 03:25] LABS: Basophils % (A) 0 %; Eosinophils # (A) 0.2 k/uL (0-0.7); Eosinophils % (A) 2 %; HCT 39.1 % (34.0-46.0); HGB 12.9 gm/dL (11.4-16.0); Hypochromasia Slight; Lymphocytes % (A) 13 %; MCH 32.4 pg (25.0-35.0); MCV 98.2 fL (80.0-100.0); Macrocytosis Slight; Mean Platelet Volume 7.7; Monocytes # (A) 0.5 k/uL (0-1.0); Monocytes % (A) 7 %; Neutrophils # (A) 6.1 k/uL (1.3-7.7); Neutrophils % (A) 77 %; Platelet Count 211 k/uL (150-450); RBC 3.98 m/uL (3.80-5.40); RDW 15.1 % (11.5-15.5)
[2022-11-02 03:37] LABS: Calcium 9.5 mg/dL (8.4-10.2); Potassium 3.3 mmol/L (3.5-5.1)
[2022-11-02] MEDS: IPRATROPIUM-ALBUTEROL 3 ML NEB INHALATION SCH ×4 (07:33→20:15)
[2022-11-02] MEDS: SYMBICORT 160-4.5 MCG INHALER INHALATION SCH ×2 (07:33→20:16)
[2022-11-02] MEDS: POTASSIUM CHLORIDE ER 20 MEQ TAB.ER PO SCH ×2 (10:53→20:59)
[2022-11-02] MEDS: LOSARTAN-HCTZ 50-12.5 MG 1 EACH TAB PO SCH (10:53)
[2022-11-02] MEDS: hydroCHLOROthiazide 12.5 MG CAP PO SCH (10:53)
[2022-11-02] MEDS: APIXABAN 5 MG TAB PO SCH (10:54)
[2022-11-02] MEDS: FUROSEMIDE 10 MG/ML 4 ML VIAL IV SCH (10:55)
[2022-11-02] MEDS: FUROSEMIDE 40 MG TAB PO SCH (12:21)
--- NOTE | 2022-11-02 15:20 | CONS ---
CONSULTATION HISTORY OF PRESENT ILLNESS: Renuka Wolf is a 77-year-old lady with a known history of chronic atrial fibrillation, on Eliquis. She comes into the hospital with complaints of having fallen. She has had a previous knee arthroplasty. X-ray of that area suggests that there is no fracture, but there is significant edema of left lower extremity where she fell and also has some amount of bruising with ecchymosis and edema. She has had previous left arthroplasty, but there is no evidence of any fracture. There is some hematoma noted on the CAT scan. DVT is not evident on the venous doppler exam. Her EKG revealed atrial fibrillation, controlled rate with nonspecific ST and T-wave changes. She is comfortable at this time. Her breathing has also improved somewhat. Chest x-ray revealed mild pulmonary vascular congestion, but the BNP in her case is not significantly abnormal. It is about 1670, which is normal for her age, and troponins are normal. She is resting comfortably without symptoms. She has low potassium at 3.3, and this is being supplemented. I am switching her from IV to oral Lasix. We will check echocardiogram, discontinue the aspirin, and also for 48 hours, I will hold the Eliquis because of significant hematoma in the leg. This is a risk because she is at risk for embolic stroke, but given the active hematoma, we will hold it. I will also request vascular surgeon to evaluate the patient to rule out any ischemia in the leg. Her atrial fibrillation rate is controlled. PAST MEDICAL HISTORY: 1. Chronic atrial fibrillation. 2. History of COPD, past history of smoking. 3. Hypertension. 4. Hyperlipidemia. ALLERGIES: None. PHYSICAL EXAMINATION: VITAL SIGNS: Blood pressure is 122/70. Pulse rate is about 80, irregular. HEENT: Unremarkable. Fundus was not examined by me. NECK: Supple. There is 1 cm JVD. No carotid bruit. HEART: Reveals S1 and S2 with irregularity in rhythm. There is a short systolic murmur. LUNGS: Reveal bilateral diminished air entry. ABDOMEN: Soft and nontender. EXTREMITIES: Lower extremities reveal edema more of the left lower extremity with some evidence of bruising where she fell and hurt herself. The pulses are diminished. CENTRAL NERVOUS SYSTEM: Limited exam. Grossly no significant abnormalities. IMPRESSION: 1. Atrial fibrillation, chronic, controlled rate. 2. Lower extremity edema with a recent fall. 3. Hematoma, left lower extremity, on Eliquis. 4. Shortness of breath. 5. Probable diastolic dysfunction. RECOMMENDATIONS: I will switch her from IV to oral Lasix, supplement potassium, check echocardiogram, discontinue the aspirin, hold Eliquis for 48 hours, and seek Vascular Surgery input. I discussed my thoughts in detail with the patient. Thank you very much for the consult. SISI / YVROSE: [id number] /
--- NOTE | 2022-11-02 20:50 | HP ---
HISTORY AND PHYSICAL CHIEF COMPLAINT: Shortness of breath, bilateral leg swelling, and fall. HISTORY OF PRESENT ILLNESS: This is a 77-year-old woman with a past medical history of multiple medical issues, atrial fibrillation, COPD, hypertension, being followed by Dr. Molina. Admitted with history of fall, left leg injury as well as some shortness of breath. The patient was found to have CHF, patient was admitted for evaluation and treatment, extensive swelling, hematoma, and blistering of the left leg was also noted. There is no history of any fever, rigors, or chills at this time. The patient is mildly confused. PAST MEDICAL HISTORY: Reviewed include atrial ablation, COPD, rest of the history and rest of the chart is reviewed. HOME MEDICATIONS: Reviewed include Hyzaar, rest of the medication and doses are reviewed. ALLERGIES: None. FAMILY HISTORY: No history of heart disease or strokes in the family, history of cancer. SOCIAL HISTORY: No history of smoking. REVIEW OF SYSTEMS: A 14-point review is negative except as mentioned earlier. PHYSICAL EXAMINATION: VITAL SIGNS: Pulse is 89, blood pressure 127/60, respirations 20. HEENT: Conjunctivae normal. NECK: No jugular venous distention. CARDIOVASCULAR: S1, S2 muffled. RESPIRATIONS: Bilateral scattered rhonchi. ABDOMEN: Soft, obese, nontender. LEGS: Significant swelling bilaterally in legs, swelling and hematoma, blisters present. NERVOUS SYSTEM: No focal deficits. LABS: WBC 8, sodium 140, potassium 3.3. ASSESSMENT: 1. Congestive heart failure acute exacerbation. 2. Fall and left leg hematoma, pain, and blistering. 3. Gait dysfunction. 4. Atrial fibrillation. 5. Chronic obstructive pulmonary disease. 6. Hypertension. RECOMMENDATIONS: This 77-year-old woman presented with multiple complex medical issues, we will monitor the patient closely. Continue the current management and treatment. Otherwise at this time I would recommend symptomatic treatment of pain PT, OT evaluation, possible ECF rehab. Follow closely with cardiology, orthopedic evaluation, infectious disease evaluation. Empiric antibiotic course will be initiated. Resume the home medications once they are confirmed. Prognosis is extremely guarded because of multiple complex medical issues. Further recommendations to follow. See orders for details. MMODL / IJN: [id number] /
--- NOTE | 2022-11-02 20:50 | P.CONS ---
History of Present Illness - Reason for Consult Consult date: 11/02/22 Blister to the left knee Requesting physician: Adrienne Larios - Chief Complaint Increasing swelling to the lower extremity x few days - History of Present Illness Patient is a 77-year-old female with a past medical history significant for left knee replacement more than 20 years ago by Patient presenting to the ER last evening for evaluation of worsening bilateral lower extremity edema apparently patient also have a fall about a week ago and did have significant bruising to the left lower extremity and has developed a blister on the left knee area patient did have mild at the licking pain into the plate of 10 radiation currently do not have any skin breakdown or any drainage and the patient denies having any fever or chills has been complaining of shor tness of breath on minimal exertion but no chest pain or cough no nausea no vomiting no abdominal pain or any diarrhea with the symptoms the patient has been evaluated on arrival to the ER the patient was afebrile patient did have a normal white count with no left shift BUN was mildly elevated creatinine is normal nose is mildly elevated urine is negative influenza RSV and COVID testing was negative blood culture obtained which are currently pending patient did have a venous Doppler no evidence of DVT most of the left lower extremity also have a lower extremity CT left knee arthroplasty changes without evidence for periprosthetic fracture left prepatellar with suspected subcutaneous and epid ural hematomas lower extremity edema bilaterally infectious he was consulted because of her swelling and blister formation to the left knee and need for any antibiotic therapy as well as local care Review of Systems Positive point has been mentioned in the HPI rest of the systems are negative Past Medical History Past Medical History: Atrial Fibrillation, COPD, Hypertension Additional Past Medical History / Comment(s): COPD, hypertension, secondary pulmonary hypertension, chronic hypoxic respiratory failure, chronic atrial fibrillation, hyperlipidemia, obstructive sleep apnea History of Any Multi-Drug Resistant Organisms: None Reported Additional Past Surgical History / Comment(s): Right lung lung lobectomy, hernia repair and the patient has a large anterior abdominal wall incision, hysterectomy, knee surgery, cholecystectomy Past Anesthesia/Blood Transfusion Reactions: No Reported Reaction Past Psychological History: No Psychological Hx Reported Smoking Status: Never smoker Past Alcohol Use History: None Reported Past Drug Use History: None Reported - Past Family History Mother Family Medical History: Cancer Father Family Medical History: Coronary Artery Disease (CAD) Medications and Allergies Home Medications Medication Instructions Recorded Confirmed Type Apixaban [Eliquis] 5 mg PO BID 07/13/19 11/01/22 History Albuterol Nebulized [Ventolin 2.5 mg INHALATION RT-TID PRN 07/26/20 11/01/22 History Nebulized] Budesonide/Glycopyr/Formoterol 2 puff INHALATION RT-BID 12/08/21 11/01/22 History [Breztri Aerosphere Inhaler] Ipratropium-Albuterol Nebulize 3 ml INHALATION RT-QID 12/08/21 11/01/22 History [Duoneb 0.5 mg-3 mg/3 ml Soln] Losartan-Hctz 50-12.5 mg [Hyzaar 1 tab PO DAILY 11/01/22 11/01/22 History 50-12.5] hydroCHLOROthiazide [Hydrodiuril] 12.5 mg PO DAILY 11/01/22 11/01/22 History Allergies Allergy/AdvReac Type Severity Reaction Status Date / Time No Known Allergies Allergy Verified 11/01/22 14:43 Physical Exam Vitals: Vital Signs Temp Pulse Resp BP Pulse Ox FiO2 11/02/22 12:05 91 11/02/22 12:00 89 20 127/68 97 11/02/22 11:50 82 100 5 11/02/22 11:00 20 98 11/02/22 10:52 80 18 113/49 99 11/02/22 10:24 87 18 122/54 100 11/02/22 07:47 96 11/02/22 07:38 92 L 11/02/22 07:34 85 11/02/22 06:20 87 94 L 11/02/22 03:35 77 18 104/77 96 11/02/22 01:42 74 18 95 11/01/22 22:31 74 18 118/64 95 11/01/22 20:56 85 11/01/22 20:45 81 11/01/22 20:27 74 20 132/86 99 11/01/22 17:25 81 20 116/54 94 L 11/01/22 13:51 86 22 95 11/01/22 13:20 98.5 F 80 18 120/68 89 L GENERAL DESCRIPTION: Middle-age female up in bed, no distress. No tachypnea or accessory muscle of respiration use. HEENT: Shows Pallor , no scleral icterus. Oral mucous membrane is dry. No pharyngeal erythema or thrush NECK: Trachea central, no thyromegaly. LUNGS: Unlabored breathing. Decreased breath sound the bases HEART: S1, S2, regular rate and rhythm. No loud murmur ABDOMEN: Soft, no tenderness , guarding or rigidity, no organomegaly EXTREMITIES: Diffuse swelling bilaterally extremity patient did have extensive bruising to the left thigh knee area and did have a blister with clear fluid no surrounding redness or warmth no drainage. SKIN: No rash, no masses palpable. NEUROLOGICAL: The patient is awake, alert, oriented x3, mood and affect normal. Results CBC & Chem 7: 11/03/22 08:13 11/03/22 08:13 Labs: Abnormal Lab Results - Last 24 Hours (Table) 11/01/22 11/01/22 11/01/22 Range/Units 16:22 16:22 19:06 Neutrophils # 8.0 H (1.3-7.7) k/uL Potassium (3.5-5.1) mmol/L Chloride 97 L (98-107) mmol/L Carbon Dioxide 37 H (22-30) mmol/L BUN 50 H (7-17) mg/dL Total Bilirubin 2.0 H (0.2-1.3) mg/dL AST 42 H (14-36) U/L Ur Specific [place] >1.050 H (1.001-1.035) Urine Ketones Trace H (Negative) 11/02/22 Range/Units 03:04 Neutrophils # (1.3-7.7) k/uL Potassium 3.3 L (3.5-5.1) mmol/L Chloride 92 L (98-107) mmol/L Carbon Dioxide 47 H* (22-30) mmol/L BUN 44 H (7-17) mg/dL Total Bilirubin (0.2-1.3) mg/dL AST (14-36) U/L Ur Specific [place] (1.001-1.035) Urine Ketones (Negative) Assessment and Plan (1) Blister of knee, left Current Visit: Yes Status: Acute Code(s): S80.222A - BLISTER (NONTHERMAL), LEFT KNEE, INITIAL ENCOUNTER SNOMED Code(s): 070107658 (2) Superficial bruising of lower leg Current Visit: Yes Status: Acute Code(s): S80.10XA - CONTUSION OF UNSPECI FIED LOWER LEG, INITIAL ENCOUNTER SNOMED Code(s): 27167236 Plan: 1patient with extensive bruising to the left knee and thigh area related to the recent fall and traumatic no evidence of any cellulitis patient also have significant bruising to the left knee area and the blister formation but no evidence of cellulitis clinically treatment will be mostly local and supportive 2we will cover the blister area with a dry 4 x 4 if the blister ruptured we will apply Aquacel silver dressing 3no need for systemic antibiotic therapy at this point We will follow on clinical condition and cultures to further adjust medication if needed Thank you for this consultation we will follow the patient along with you Time with Patient: Greater than 30
[2022-11-02] MEDS: MELATONIN 5 MG TABLET PO SCH (23:24)
[2022-11-03] MEDS: IPRATROPIUM-ALBUTEROL 3 ML NEB INHALATION SCH ×4 (08:24→19:45)
[2022-11-03] MEDS: SYMBICORT 160-4.5 MCG INHALER INHALATION SCH ×2 (08:25→19:45)
[2022-11-03 08:48] LABS: Basophils % (A) 0 %; Eosinophils # (A) 0.2 k/uL (0-0.7); Eosinophils % (A) 2 %; HCT 38.8 % (34.0-46.0); HGB 12.3 gm/dL (11.4-16.0); Hypochromasia Moderate; Lymphocytes # (A) 0.8 k/uL (1.0-4.8); Lymphocytes % (A) 10 %; MCH 31.9 pg (25.0-35.0); MCHC 31.7 g/dL (31.0-37.0); MCV 100.6 fL (80.0-100.0); Macrocytosis Slight; Mean Platelet Volume 7.6; Monocytes # (A) 0.5 k/uL (0-1.0); Monocytes % (A) 6 %; Neutrophils # (A) 6.2 k/uL (1.3-7.7); Neutrophils % (A) 80 %; Platelet Count 212 k/uL (150-450); RBC 3.86 m/uL (3.80-5.40); RDW 15.4 % (11.5-15.5); WBC 7.8 k/uL (3.8-10.6)
[2022-11-03] MEDS ORDERED: FUROSEMIDE 40 MG TAB PO SCH (09:00)
[2022-11-03 09:07] LABS: Potassium 3.7 mmol/L (3.5-5.1)
[2022-11-03] MEDS: HYDROcodone/APAP 5-325MG 1 EACH TAB PO PRN (09:16)
[2022-11-03] MEDS: hydroCHLOROthiazide 12.5 MG CAP PO SCH (09:16)
[2022-11-03] MEDS: POTASSIUM CHLORIDE ER 20 MEQ TAB.ER PO SCH ×2 (09:17→20:37)
[2022-11-03] MEDS: FUROSEMIDE 40 MG TAB PO SCH (09:18)
[2022-11-03] MEDS: LOSARTAN-HCTZ 50-12.5 MG 1 EACH TAB PO SCH ×2 (09:21→12:00)
--- NOTE | 2022-11-03 11:08 | CA ---
Transthoracic Echo Report Name: Renuka Wolf Age: 77 Gender: F : 1945 Exam Date: 11/03/2022 09:07 Exam Location: [facility] Ht (in): 60 Wt (lb): 219 Ordering Physician: Quinten Esteban MD Attending/Referring Phys: Patent Prosecution Paralegal Aimee Jc RDCS Procedure CPT: Indications: chf Cardiac Hx: Technical Quality: Contrast 1: Total Dose (mL): Contrast 2: Total Dose (mL): MEASUREMENTS (Male / Female) Normal Values 2D ECHO LV Diastolic Diameter PLAX 4.1 cm 4.2 - 5.9 / 3.9 - 5.3 cm LV Systolic Diameter PLAX 3.2 cm IVS Diastolic Thickness 1.1 cm 0.6 - 1.0 / 0.6 - 0.9 cm LVPW Diastolic Thickness 1.2 cm 0.6 - 1.0 / 0.6 - 0.9 cm LV Relative Wall Thickness 0.6 RV Internal Dim ED PLAX 3.3 cm LA Systolic Diameter LX 3.3 cm 3.0 - 4.0 / 2.7 - 3.8 cm M-MODE Aortic Root Diameter MM 2.2 cm LA Systolic Diameter MM 4.0 cm LA Ao Ratio MM 1.8 DOPPLER MV Area PHT 4.2 cm??? Mitral E Point Velocity 85.3 cm/s Mitral A Point Velocity 34.1 cm/s Mitral E to A Ratio 2.5 MV Deceleration Time 178.8 ms MV E' Velocity 8.8 cm/s Mitral E to MV E' Ratio 9.7 TR Peak Velocity 295.6 cm/s TR Peak Gradient 35.0 mmHg Right Ventricular Systolic Press 40.0 mmHg FINDINGS Left Ventricle Mild left ventricle hypertrophy. Left ventricular cavity size normal. Left ventricular ejection fraction is estimated at 55-60%. Right Ventricle Normal right ventricular size and function. Mild pulmonary hypertension. Right ventricular systolic pressure estimated at40 mm hg. Right Atrium Normal right atrial size. Left Atrium Normal left atrial size. Mitral Valve Structurally normal mitral valve. Mild mitral regurgitation. Aortic Valve Trileaflet aortic valve. Tricuspid Valve Structurally normal tricuspid valve. Mild tricuspid regurgitation. Pulmonic Valve Structurally normal pulmonic valve. Pericardium Small pericardial effusion. Aorta Aortic root and proximal ascending aorta not well visualized. CONCLUSIONS 1. Normal size and systolic function 2. Mild mitral and tricuspid regurgitation 3. Small pericardial effusion 4. The right ventricle visually appears to be enlarged although measured normal Previewed by: Dr. Ronald Byrd MD (Electronically Signed) Final Date: 03 November 2022 11:07
--- NOTE | 2022-11-03 14:29 | P.PN ---
Subjective Progress Note Date: 11/03/22 Principal diagnosis: Left knee bruising/blister and a question of cellulitis Patient is a 77-year-old female with a past medical history significant for left knee replacement more than 20 years ago by Patient presenting to the ER last evening for evaluation of worsening bilateral lower extremity edema apparently patient also have a fall about a week ago and did hav e significant bruising to the left lower extremity and has developed a blister on the left knee area, CT did not show any fracture. On today's evaluation that is 11/03/2022, the patient denies having any fever or any chills, patient pain to the left knee has slightly decreased in intensity blister size is about the same and did have significant bruising but no open wound or any drainage no chest pain shortness of breath or cough no abdominal pain or diarrhea Objective - Vital Signs Vital signs: Vital Signs Temp 98.3 F 11/03/22 12:07 Pulse 70 11/03/22 12:07 Resp 18 11/03/22 12:07 BP 99/49 11/03/22 12:07 Pulse Ox 96 11/03/22 12:07 FiO2 5 11/02/22 11:50 Intake & Output 11/02/22 11/03/22 11/03/22 18:59 06:59 18:59 Intake Total 10 118 Output Total 400 Balance -390 118 Weight 99.5 kg Intake: IV 10 Invasive Line 2 10 Oral 118 Output: Urine 400 Other: Voiding Method External Catheter - Exam GENERAL DESCRIPTION: An elderly female lying in bed in no distress RESPIRATORY SYSTEM: Unlabored breathing , decreased breath sounds at bases HEART: S1 S2 regular rate and rhythm , ABDOMEN: Soft , no tenderness EXTREMITIES: Diffuse swelling to bilateral lower extremity, patient did have a extensive bruising to the left thigh as well as the area with a blister mostly clear fluid - Labs CBC & Chem 7: 11/03/22 08:13 11/03/22 08:13 Labs: Abnormal Lab Results - Last 24 Hours (Table) 11/03/22 11/03/22 Range/Units 08:13 08:13 MCV 100.6 H (80.0-100.0) fL Lymphocytes # 0.8 L (1.0-4.8) k/uL Chloride 89 L (98-107) mmol/L Carbon Dioxide 47 H* (22-30) mmol/L BUN 34 H (7-17) mg/dL Glucose 141 H (74-99) mg/dL Microbiology - Last 24 Hours (Table) 11/01/22 16:22 Blood Culture - Preliminary Blood No Growth after 24 hours 11/01/22 16:00 Blood Culture - Preliminary Blood No Growth after 24 hours Assessment and Plan (1) Blister of knee, left Current Visit: Yes Status: Acute Code(s): S80.222A - BLISTER (NONTHERMAL), LEFT KNEE, INITIAL ENCOUNTER SNOMED Code(s): 511111660 (2) Superficial bruising of lower leg Current Visit: Yes Status: Acute Code(s): S80.10XA - CONTUSION OF UNSPECIFIED LOWER LEG, INITIAL ENCOUNTER SNOMED Code(s): 85349415 Plan: 1patient with extensive bruising to the left knee and thigh area related to the recent fall and traumatic no evidence of any cellulitis patient also have significant bruising to the left knee area and the blister formation but no evidence of cellulitis clinically treatment will be mostly local and supportive 2we will cover the blister area with a dry 4 x 4 if the blister ruptured we will apply Aquacel silver dressing, this was communicated to the RN at the bedside 3no need for systemic antibiotic therapy and cefazolin can be discontinued Time with Patient: Less than 30
--- NOTE | 2022-11-03 15:56 | P.CNOR ---
History of Present Illness - HPI Consult date: 11/03/22 Requesting physician: Adrienne Larios Consult reason: other (fall, LLE hematoma) History of present illness: History of Presenting Illness Patient is a pleasant 77-year-old female who presented to the ER for evaluation of bilateral lower extremity edema and significant bruising to left lower extremity from a fall that she had last week. Patient is on Eliquis due to atrial fibrillation. Her services were consulted for evaluation of left lower extremity hematoma. Patient's daughter was present at bedside and provided history. Patient's daughter states that she is normally ambulatory with walker and had a fall last Tuesday/Tuesday. They did seek medical attention at the hospital in [place]. She does report that there is improvement to the left lower extremity bruising. Patient is able to perform flexion and extension exercises without difficulty. She denies any numbness or tingling to bilateral lower extremities. She is weight-bearing on LLE with walker. There is a dressing to the left knee due to a blister from fall. Patient does have a history of a left knee arthroplasty from approx 20 years ago, no other orthopedic history noted. Review of Systems Pertinent positives and negatives as discussed in HPI, a complete review of systems was performed and all other systems are negative. Physical Examination General: The patient is awake and alert, in no acute distress Skin: Skin is warm and dry with no obvious rashes or lesions. Superficial bruising to the left lower extremity. Left knee presents with a small blister, dressing applied. Eye: Pupils are equal, round and reactive to light, extra-ocular movements are intact; there is normal conjunctiva bilaterally. Neck: The neck is supple, there is no tenderness and ROM intact. Cardiovascular: There is a irregular rate. No murmur, rub or gallop is appreciated. Edema present to the bilateral lower extremities Respiratory: Lungs are clear to auscultation, respirations are non-labored, breath sounds are equal. Gastrointestinal: Soft, non-distended, non-tender abdomen. Musculoskeletal: ROM limited to left knee secondary to pain and stiffness. Shoulder abduction 5/5, elbow flexors 5/5, wrist dorsiflexors 5/5. finger abductor 5/5, occupational therapy program director 5/5, hip flexor 4/5, knee flexor 4/5, ankle dorsiflexor 5/5, ankle plantarflexion 5/5 and extensor hallucis 5/5. Neurological: CN 2-12 intact. There are no obvious motor or sensory deficits. Movement and coordination equal and intact. Sensory exam to light touch intact C5-T1 and intact from L2-S1. Reflexes 2/4 in bilateral upper and lower extremities. Negative Hoffmans, babinski, and clonus signs. Psychiatric: Cooperative, appropriate mood & affect, normal judgment. Assessment and Plan CT of the left lower extremity results with no fracture, dislocation, or subluxation. There is a hematoma measuring 8.1 x 1.9 x 6.6 cm, anterior to the knee and in the epidermis is a exophytic blister measuring 2.7 x 0.5 cm long the medial thigh. No joint effusion. Fall from standing Superficial bruising of left lower leg Left knee pain Pain management Ice and elevate Petr wrap/compression wrap if tolerated. PT/OT: WBAT We will continue to follow. I reviewed and discussed this case with my attending Dr. Day, whom has reviewed this chart and films and is in agreement with assessment and plan of care as outlined above. I have personally seen and examined the patient, performed the documentation and the assessment and plan as written. Number of minutes spent on the visit: 20m. Past Medical History Past Medical History: Atrial Fibrillation, COPD, Hypertension Additional Past Medical History / Comment(s): COPD, hypertension, secondary pulmonary hypertension, chronic hypoxic respiratory failure, chronic atrial fibrillation, hyperlipidemia, obstructive sleep apnea History of Any Multi-Drug Resistant Organisms: None Reported Additional Past Surgical History / Comment(s): Right lung lung lobectomy, hernia repair and the patient has a large anterior abdominal wall incision, hystere ctomy, knee surgery, cholecystectomy Past Anesthesia/Blood Transfusion Reactions: No Reported Reaction Past Psychological History: No Psychological Hx Reported Smoking Status: Never smoker Past Alcohol Use History: None Reported Past Drug Use History: None Reported - Past Family History Mother Family Medical History: Cancer Father Family Medical History: Coronary Artery Disease (CAD) Medications and Allergies Home Medications Medication Instructions Recorded Confirmed Type Apixaban [Eliquis] 5 mg PO BID 07/13/19 11/01/22 History Albuterol Nebulized [Ventolin 2.5 mg INHALATION RT-TID PRN 07/26/20 11/01/22 History Nebulized] Budesonide/Glycopyr/Formoterol 2 puff INHALATION RT-BID 12/08/21 11/01/22 History [Breztri Aerosphere Inhaler] Ipratropium-Albuterol Nebulize 3 ml INHALATION RT-QID 12/08/21 11/01/22 History [Duoneb 0.5 mg-3 mg/3 ml Soln] Losartan-Hctz 50-12.5 mg [Hyzaar 1 tab PO DAILY 11/01/22 11/01/22 History 50-12.5] hydroCHLOROthiazide [Hydrodiuril] 12.5 mg PO DAILY 11/01/22 11/01/22 History Allergies Allergy/AdvReac Type Severity Reaction Status Date / Time No Known Allergies Allergy Verified 11/01/22 14:43 Results - Labs Labs: Abnormal Lab Results - Last 24 Hours (Table) 11/03/22 11/03/22 Range/Units 08:13 08:13 MCV 100.6 H (80.0-100.0) fL Lymphocytes # 0.8 L (1.0-4.8) k/uL Chloride 89 L (98-107) mmol/L Carbon Dioxide 47 H* (22-30) mmol/L BUN 34 H (7-17) mg/dL Glucose 141 H (74-99) mg/dL Microbiology - Last 24 Hours (Table) 11/01/22 16:22 Blood Culture - Preliminary Blood No Growth after 24 hours 11/01/22 16:00 Blood Culture - Preliminary Blood No Growth after 24 hours H & H 11/01/22 11/02/22 11/03/22 Range/Units 16:22 03:04 08:13 Hgb 13.4 12.9 12.3 (11.4-16.0) gm/dL Hct 40.7 39.1 38.8 (34.0-46.0) % Coagulation 11/01/22 Range/Units 16:22 INR 1.0 (<1.2) Result Diagrams: 11/03/22 08:13 11/03/22 08:13
--- NOTE | 2022-11-03 16:18 | P.GSCN ---
History of Present Illness History of present illness: 77-year-old white female patient has history of fall at home a week ago patient developed ecchymosis medial aspect of the thigh and left lower extremity with blister formation at the knee joint there is no evidence of 4 localize hematoma ecchymosis noted from thigh up to the lower leg patient has history of A. fib and patient is on anticoagulation she also has a history of COPD and congestive heart failure Neck is supple no bruit appreciated Chest patient has a crackles bilateral Abdomen is soft nontender Vascular radial pulses palpable femoral and dorsal pedis is palpable left leg has some ecchymosis due to fall no obvious hematoma and there is a blister formation noted around the left knee joint At this point patient need no surgical intervention follow with you Past Medical History Past Medical History: Atrial Fibrillation, COPD, Hypertension Additional Past Medical History / Comment(s): COPD, hypertension, secondary pulmonary hypertension, chronic hypoxic respiratory failure, chronic atrial fibrillation, hyperlipidemia, obstructive sleep apnea History of Any Multi-Drug Resistant Organisms: None Reported Additional Past Surgical History / Comment(s): Right lung lung lobectomy, hernia repair and the patient has a large anterior abdominal wall incision, hysterectomy, knee surgery, cholecystectomy Past Anesthesia/Blood Transfusion Reactions: No Reported Reaction Past Psychological History: No Psychological Hx Reported Smoking Status: Never smoker Past Alcohol Use History: None Reported Past Drug Use History: None Reported - Past Family History Mother Family Medical History: Cancer Father Family Medical History: Coronary Artery Disease (CAD) Medications and Allergies Home Medications Medication Instructions Recorded Confirmed Type Apixaban [Eliquis] 5 mg PO BID 07/13/19 11/01/22 History Albuterol Nebulized [Ventolin 2.5 mg INHALATION RT-TID PRN 07/26/20 11/01/22 History Nebulized] Budesonide/Glycopyr/Formoterol 2 puff INHALATION RT-BID 12/08/21 11/01/22 History [Breztri Aerosphere Inhaler] Ipratropium-Albuterol Nebulize 3 ml INHALATION RT-QID 12/08/21 11/01/22 History [Duoneb 0.5 mg-3 mg/3 ml Soln] Losartan-Hctz 50-12.5 mg [Hyzaar 1 tab PO DAILY 11/01/22 11/01/22 History 50-12.5] hydroCHLOROthiazide [Hydrodiuril] 12.5 mg PO DAILY 11/01/22 11/01/22 History Allergies Allergy/AdvReac Type Severity Reaction Status Date / Time No Known Allergies Allergy Verified 11/01/22 14:43 Surgical - Exam Vital Signs Temp Pulse Resp BP Pulse Ox 98.5 F 80 18 120/68 89 L 11/01/22 13:20 11/01/22 13:20 11/01/22 13:20 11/01/22 13:20 11/01/22 13:20 Results - Labs 11/03/22 08:13 11/03/22 08:13 Abnormal Lab Results - Last 24 Hours (Table) 11/03/22 11/03/22 Range/Units 08:13 08:13 MCV 100.6 H (80.0-100.0) fL Lymphocytes # 0.8 L (1.0-4.8) k/uL Chloride 89 L (98-107) mmol/L Carbon Dioxide 47 H* (22-30) mmol/L BUN 34 H (7-17) mg/dL Glucose 141 H (74-99) mg/dL Microbiology - Last 24 Hours (Table) 11/01/22 16:22 Blood Culture - Preliminary Blood No Growth after 24 hours 11/01/22 16:00 Blood Culture - Preliminary Blood No Growth after 24 hours Diabetes panel 11/03/22 Range/Units 08:13 Sodium 139 (137-145) mmol/L Potassium 3.7 (3.5-5.1) mmol/L Chloride 89 L (98-107) mmol/L Carbon Dioxide 47 H* (22-30) mmol/L BUN 34 H (7-17) mg/dL Creatinine 0.80 (0.52-1.04) mg/dL Glucose 141 H (74-99) mg/dL Calcium 9.0 (8.4-10.2) mg/dL Calcium panel 11/03/22 Range/Units 08:13 Calcium 9.0 (8.4-10.2) mg/dL Pituitary panel 11/03/22 Range/Units 08:13 Sodium 139 (137-145) mmol/L Potassium 3.7 (3.5-5.1) mmol/L Chloride 89 L (98-107) mmol/L Carbon Dioxide 47 H* (22-30) mmol/L BUN 34 H (7-17) mg/dL Creatinine 0.80 (0.52-1.04) mg/dL Glucose 141 H (74-99) mg/dL Calcium 9.0 (8.4-10.2) mg/dL Adrenal panel 11/03/22 Range/Units 08:13 Sodium 139 (137-145) mmol/L Potassium 3.7 (3.5-5.1) mmol/L Chloride 89 L (98-107) mmol/L Carbon Dioxide 47 H* (22-30) mmol/L BUN 34 H (7-17) mg/dL Creatinine 0.80 (0.52-1.04) mg/dL Glucose 141 H (74-99) mg/dL Calcium 9.0 (8.4-10.2) mg/dL
--- NOTE | 2022-11-03 18:33 | PN ---
PROGRESS NOTE SUBJECTIVE: Ms. Wolf is a lady, who was hospitalized yesterday with some injury to the left leg, some bruising, and shortness of breath. She may have some diastolic heart failure, and her leg has improved a lot actually. We will resume her Eliquis, which I held for 3 doses. I will resume it starting tomorrow evening at 5 mg b.i.d. Her echocardiogram revealed preserved systolic function with mild pulmonary hypertension and mild mitral and tricuspid insufficiency. She is feeling much better, ambulating with the help of Physical Therapy. OBJECTIVE: VITAL SIGNS: Stable. Blood pressure is 100/60. Pulse rate is about 80 per minute. NECK: There is JVD of 1 cm. No carotid bruit. HEART: Reveals S1 and S2 with irregularity in rhythm. Short systolic murmur. LUNGS: Reveal diminished air entry. ABDOMEN: Soft. EXTREMITIES: Lower extremities reveal improved edema. CENTRAL NERVOUS SYSTEM: Grossly within normal limits. PLAN: Plan is to resume apixaban tomorrow. Continue the oral Lasix and other medications that she is taking. No other intervention from a cardiac standpoint. We will continue to see her as needed. MMODL / IJN: [id number] /
[2022-11-03] MEDS: LOSARTAN 25 MG TAB PO SCH (20:36)
[2022-11-03] MEDS: MELATONIN 5 MG TABLET PO SCH (20:37)
--- NOTE | 2022-11-03 23:21 | PN ---
PROGRESS NOTE DATE OF SERVICE: 11/03/2022 SUBJECTIVE: This is a 77-year-old woman who was admitted with CHF exacerbation as well as extensive hematoma and blister formation on the left leg also. No fever. No cough OBJECTIVE: VITAL SIGNS: On exam, pulse is 70, blood pressure n respirations 18. CHEST: Clear to auscultation. CARDIOVASCULAR: S1, S2. ABDOMEN: Soft. LEGS: Significant hematoma and blisters also present. LABORATORY DATA: Labs are reviewed. ASSESSMENT: 1. Congestive heart failure, acute exacerbation. 2. Fall and left leg extensive hematoma with blistering and pain. 3. Gait dysfunction. 4. Atrial fibrillation. 5. Chronic obstructive pulmonary disease. 6. Hypertension. RECOMMENDATIONS: Recommend to continue current management and symptomatic treatment. The patient's creatinine is normal. Follow closely with Infectious Disease as well as Cardiology. I would also recommend orthopedic evaluation also to complete the workup and PT/OT evaluation. MMODL / IJN: [id number] / MTDD
[2022-11-04] MEDS: HYDROcodone/APAP 5-325MG 1 EACH TAB PO PRN ×3 (00:02→20:01)
[2022-11-04] MEDS: SYMBICORT 160-4.5 MCG INHALER INHALATION SCH ×2 (08:01→19:32)
[2022-11-04] MEDS: IPRATROPIUM-ALBUTEROL 3 ML NEB INHALATION SCH ×4 (08:01→19:32)
[2022-11-04] MEDS: POTASSIUM CHLORIDE ER 20 MEQ TAB.ER PO SCH ×2 (08:05→20:01)
[2022-11-04] MEDS: hydroCHLOROthiazide 12.5 MG CAP PO SCH (08:05)
[2022-11-04] MEDS: FUROSEMIDE 40 MG TAB PO SCH (08:05)
[2022-11-04] MEDS: FAMOTIDINE 20 MG TAB PO SCH (08:05)
[2022-11-04] MEDS ORDERED: FAMOTIDINE 20 MG/2 ML VIAL IV SCH (09:00)
--- NOTE | 2022-11-04 09:03 | P.PN ---
Subjective Progress Note Date: 11/04/22 Principal diagnosis: Fall from standing LLE hematoma Patient seen and examined this morning. Patient is sitting up in chair and tolerating breakfast well. Patient states she has been working with physical therapy, ambulate and in room with walker. Patient states she is looking forward to taking a shower this morning. Superficial hematoma to left lower extremity appears to be improving. Patient reports generalized weakness in bilateral lower extremities. Encouraged patient to continue to work with physical therapy and perform chair exercises. Patient denies any numbness tingling to bilateral lower extremities. She has been afebrile, denies nausea/vomiting, or chest pain. Objective - Vital Signs Vital signs: Vital Signs Temp 97.7 F 11/04/22 07:54 Pulse 80 11/04/22 08:11 Resp 16 11/04/22 07:54 BP 117/70 11/04/22 07:54 Pulse Ox 77 L 11/04/22 08:02 FiO2 5 11/02/22 11:50 Intake & Output 11/03/22 11/04/22 11/04/22 18:59 06:59 18:59 Intake Total 636 Output Total 600 Balance 636 -600 Intake: Oral 636 Output: Urine 600 Other: Voiding Method External Catheter External Catheter - Exam Physical Examination General: The patient is awake and alert, in no acute distress Skin: Skin is warm and dry with no obvious rashes or lesions. Superficial bruising to the left lower extremity. Left knee presents with a small blister, dressing applied. Eye: Pupils are equal, round and reactive to light, extra-ocular movements are intact; there is normal conjunctiva bilaterally. Neck: The neck is supple, there is no tenderness and ROM intact. Cardiovascular: There is a irregular rate. No murmur, rub or gallop is appreciated. Edema present to the bilateral lower extremities Respiratory: Lungs are clear to auscultation, respirations are non-labored, breath sounds are equal. Gastrointestinal: Soft, non-distended, non-tender abdomen. Musculoskeletal: ROM limited to left knee secondary to pain and stiffness. Shoulder abduction 5/5, elbow flexors 5/5, wrist dorsiflexors 5/5. finger abductor 5/5, tank car inspector 5/5, hip flexor 4/5, knee flexor 4/5, ankle dorsiflexor 5/5, ankle plantarflexion 5/5 and extensor hallucis 5/5. Neurological: CN 2-12 intact. There are no obvious motor or sensory deficits. Movement and coordination equal and intact. Sensory exam to light touch intact C5-T1 and intact from L2-S1. Reflexes 2/4 in bilateral upper and lower extremities. Negative Hoffmans, babinski, and clonus signs. Psychiatric: Cooperative, appropriate mood & affect, normal judgment. - Labs CBC & Chem 7: 11/03/22 08:13 11/03/22 08:13 Labs: Abnormal Lab Results - Last 24 Hours (Table) 11/03/22 Range/Units 08:13 Chloride 89 L (98-107) mmol/L Carbon Dioxide 47 H* (22-30) mmol/L BUN 34 H (7-17) mg/dL Glucose 141 H (74-99) mg/dL Microbiology - Last 24 Hours (Table) 11/01/22 16:22 Blood Culture - Preliminary Blood No Growth after 48 hours 11/01/22 16:00 Blood Culture - Preliminary Blood No Growth after 48 hours Assessment and Plan Assessment: Fall from standing Superficial bruising of left lower leg Left knee pain Plan: Pain management Ice and elevate Petr wrap/compression wrap if tolerated. PT/OT: WBAT No surgical intervention at this time. Our services will be signing off, please feel free to reach out for any further questions or concerns. Patient may follow up in our office as needed. I reviewed and discussed this case with my attending Dr. Day, whom has reviewed this chart and films and is in agreement with assessment and plan of c are as outlined above. I have personally seen and examined the patient, performed the documentation and the assessment and plan as written. Number of minutes spent on the visit: 20m.
[2022-11-04 10:53] LABS: Basophils % (A) 0 %; Eosinophils # (A) 0.2 k/uL (0-0.7); Eosinophils % (A) 2 %; HCT 39.5 % (34.0-46.0); HGB 12.1 gm/dL (11.4-16.0); Hypochromasia Marked; Lymphocytes # (A) 1.1 k/uL (1.0-4.8); Lymphocytes % (A) 13 %; MCH 31.5 pg (25.0-35.0); MCHC 30.6 g/dL (31.0-37.0); MCV 102.7 fL (80.0-100.0); Macrocytosis Slight; Mean Platelet Volume 7.4; Monocytes # (A) 0.4 k/uL (0-1.0); Monocytes % (A) 5 %; Neutrophils # (A) 6.6 k/uL (1.3-7.7); Neutrophils % (A) 78 %; Platelet Count 250 k/uL (150-450); RBC 3.85 m/uL (3.80-5.40); RDW 14.6 % (11.5-15.5); WBC 8.5 k/uL (3.8-10.6)
[2022-11-04 11:42] LABS: Potassium 4.1 mmol/L (3.5-5.1)
--- NOTE | 2022-11-04 14:25 | P.PN ---
Subjective This is a pleasant 77 years old female with multiple medical problems presents from home because she fell while she was trying to get to the bathroom as every night, she denies dizziness or syncope, she did not hit her head and she denies diarrhea or abdominal pain or chest pain or dyspnea. She has history of COPD, her intervention nurse is Dr. Sotomayor and she hasn't 2 L oxygen via nasal cannula at home. She has a bruise on her left knee with some blistering and mild surrounding bruising which is fading away. No fracture, orthopedic team evaluated the patient and signed off the case, no need for surgical intervention. Patient also with no evidence of infection and antibiotic was discontinued. Patient with no respiratory or urinary tract symptoms. She tolerates diet well. She is hemodynamically stable, labs reviewed and the looks stable. She remains on home dose of Eliquis. Meteorologist In Charge will see the patient and as needed basis. Patient currently medically stable pending placement, patient thinks she needs to go to [facility]CF, delinquency prevention social worker and a Place Objective - Vital Signs Vital signs: Vital Signs Temp 97.7 F 11/04/22 07:54 Pulse 80 11/04/22 11:22 Resp 16 11/04/22 07:54 BP 117/70 11/04/22 07:54 Pulse Ox 77 L 11/04/22 08:02 FiO2 5 11/02/22 11:50 Intake & Output 11/03/22 11/04/22 11/04/22 18:59 06:59 18:59 Intake Total 636 118 Output Total 600 Balance 636 -600 118 Intake: Oral 636 118 Output: Urine 600 Other: Voiding Method External Catheter External Catheter - Exam GENERAL: The patient is alert and oriented x3, not in any acute distress. Well developed, well nourished. HEENT: Pupils are round and equally reacting to light. EOMI. No scleral icterus. No conjunctival pallor. Normocephalic, atraumatic. No pharyngeal erythema. No thyromegaly. CARDIOVASCULAR: S1 and S2 present. No murmurs, rubs, or gallops. PULMONARY: Chest is clear to auscultation, no wheezing or crackles. ABDOMEN: Soft, nontender, nondistended, normoactive bowel sounds. No palpable organomegaly. MUSCULOSKELETAL: No joint swelling or deformity. -EXTREMITIES: No cyanosis, clubbing, or pedal edema. bruise on her left knee with some blistering and mild surrounding bruising which is fading away. NEUROLOGICAL: Gross neurological examination did not reveal any focal deficits. SKIN: No rashes. no petechiae. - Labs CBC & Chem 7: 11/04/22 09:53 11/04/22 09:53 Labs: Abnormal Lab Results - Last 24 Hours (Table) 11/04/22 Range/Units 09:53 MCV 102.7 H (80.0-100.0) fL MCHC 30.6 L (31.0-37.0) g/dL Microbiology - Last 24 Hours (Table) 11/01/22 16:22 Blood Culture - Preliminary Blood No Growth after 48 hours 11/01/22 16:00 Blood Culture - Preliminary Blood No Growth after 48 hours Assessment and Plan Assessment: Follow-up home without losing consciousness Left knee bruising with no evidence of fracture Chronic heart failure with no acute exacerbation Chronic atrial fibrillation on liquids Chronic obstructive pulmonary disease, no acute exacerbation Chronic hypoxic respiratory failure Hypertension Obesity with BMI 42.8 Plan: Continue with Eliquis home dose of 5 mg Discontinue antibiotic Cardiology and orthopedic team signed off the case. Patient wants to go to subacute rehab, delinquency prevention social worker indicates Labs and medication were reviewed.. Continue same treatment. Continue with symptomatic treatment. Resume home medication. Monitor labs and vitals. DVT and GI prophylaxis. Further recommendations as per clinical course of the patient DVT prophylaxis: Eliquis GI Prophylaxis: Pepcid PT/OT: STEFANY Prognosis is guarded Patient is medically stable for discharge pending placement
--- NOTE | 2022-11-04 14:54 | P.PN ---
Subjective Progress Note Date: 11/04/22 Principal diagnosis: Left knee bruising/blister and a question of cellulitis Patient is a 77-year-old female with a past medical history significant for left knee replacement more than 20 years ago by Patient presenting to the ER last evening for evaluation of worsening bilateral lower extremity edema apparently patient also have a fall about a week ago and did hav e significant bruising to the left lower extremity and has developed a blister on the left knee area, CT did not show any fracture. On today's evaluation that is 11/04/2022, the patient remains to be afebrile, patient pain to the left knee has decreased in intensity, the patient right knee blister size and hasn't ruptured, the patient did have significant bruising but no open wound or any drainage no chest pain shortness of breath or cough no abdominal pain or diarrhea Objective - Vital Signs Vital signs: Vital Signs Temp 98.2 F 11/04/22 12:00 Pulse 84 11/04/22 12:00 Resp 18 11/04/22 12:00 BP 115/74 11/04/22 12:00 Pulse Ox 95 11/04/22 12:00 FiO2 5 11/02/22 11:50 Intake & Output 11/03/22 11/04/22 11/04/22 18:59 06:59 18:59 Intake Total 636 118 Output Total 600 Balance 636 -600 118 Intake: Oral 636 118 Output: Urine 600 Other: Voiding Method External Catheter External Catheter - Exam GENERAL DESCRIPTION: An elderly female lying in bed in no distress RESPIRATORY SYSTEM: Unlabored breathing , decreased breath sounds at bases HEART: S1 S2 regular rate and rhythm , ABDOMEN: Soft , no tenderness EXTREMITIES: Diffuse swelling to bilateral lower extremity, patient did have a extensive bruising to the left thigh as well as the area with a blister mostly clear fluid - Labs CBC & Chem 7: 11/04/22 09:53 11/04/22 09:53 Labs: Abnormal Lab Results - Last 24 Hours (Table) 11/04/22 11/04/22 Range/Units 09:53 09:53 MCV 102.7 H (80.0-100.0) fL MCHC 30.6 L (31.0-37.0) g/dL Chloride 90 L (98-107) mmol/L Carbon Dioxide 48 H* (22-30) mmol/L BUN 33 H (7-17) mg/dL Glucose 123 H (74-99) mg/dL Microbiology - Last 24 Hours (Table) 11/01/22 16:22 Blood Culture - Preliminary Blood No Growth after 48 hours 11/01/22 16:00 Blood Culture - Preliminary Blood No Growth after 48 hours Assessment and Plan (1) Blister of knee, left Current Visit: Yes Status: Acute Code(s): S80.222A - BLISTER (NONTHERMAL), LEFT KNEE, INITIAL ENCOUNTER SNOMED Code(s): 116650815 (2) Superficial bruising of lower leg Current Visit: Yes Status: Acute Code(s): S80.10XA - CONTUSION OF UNSPECIFIED LOWER LEG, INITIAL ENCOUNTER SNOMED Code(s): 26019813 Plan: 1patient with extensive bruising to the left knee and thigh area related to the recent fall and traumatic no evidence of any cellulitis patient also have significant bruising to the left knee area and the blister formation but no evidence of cellulitis clinically treatment will be mostly local and supportive 2we will cover the blister area with a dry 4 x 4 if the blister ruptured we will apply Aquacel silver dressing, to be changed daily 3we will discontinue the cefazolin and monitor the patient closely off antibiotic therapy Time with Patient: Less than 30
[2022-11-04] MEDS: LOSARTAN 25 MG TAB PO SCH (20:01)
[2022-11-04] MEDS: APIXABAN 5 MG TAB PO SCH (20:01)
[2022-11-04] MEDS: MELATONIN 5 MG TABLET PO SCH (20:01)
[2022-11-05] MEDS: IPRATROPIUM-ALBUTEROL 3 ML NEB INHALATION SCH ×4 (07:23→18:41)
[2022-11-05] MEDS: SYMBICORT 160-4.5 MCG INHALER INHALATION SCH ×2 (07:23→18:41)
[2022-11-05] MEDS: APIXABAN 5 MG TAB PO SCH ×2 (10:12→20:26)
[2022-11-05] MEDS: hydroCHLOROthiazide 12.5 MG CAP PO SCH (10:13)
[2022-11-05] MEDS: FAMOTIDINE 20 MG TAB PO SCH (10:13)
[2022-11-05] MEDS: FUROSEMIDE 40 MG TAB PO SCH (10:13)
[2022-11-05] MEDS: POTASSIUM CHLORIDE ER 20 MEQ TAB.ER PO SCH ×2 (10:13→20:26)
--- NOTE | 2022-11-05 14:16 | P.PN ---
Subjective This is a pleasant 77 years old female with multiple medical problems presents from home because she fell while she was trying to get to the bathroom as every night, she denies dizziness or syncope, she did not hit her head and she denies diarrhea or abdominal pain or chest pain or dyspnea. She has history of COPD, her flying shear operator is Dr. Sotomayor and she hasn't 2 L oxygen via nasal cannula at home. She has a bruise on her left knee with some blistering and mild surrounding bruising which is fading away. No fracture, orthopedic team evaluated the patient and signed off the case, no need for surgical intervention. Patient also with no evidence of infection and antibiotic was discontinued. Patient with no respiratory or urinary tract symptoms. She tolerates diet well. She is hemodynamically stable, labs reviewed and the looks stable. She remains on home dose of Eliquis. Starter Mechanic will see the patient and as needed basis. Patient currently medically stable pending placement, patient thinks she needs to go to [facility], psych social worker and a Place 11/05/2012 In general, he is doing well, no new complaints Hemodynamically stable. She's kept off antibiotics for now with no fever or worsening symptoms Eliquis resumed yesterday with no issues Discussed the case with psych social worker, prior authorization Patient is medically stable for discharge pending placement Possible discharge in 24-48 hours Objective - Vital Signs Vital signs: Vital Signs Temp 98.2 F 11/05/22 08:30 Pulse 80 11/05/22 11:29 Resp 18 11/05/22 08:30 BP 102/61 11/05/22 08:30 Pulse Ox 95 11/05/22 08:30 FiO2 5 11/02/22 11:50 Intake & Output 11/04/22 11/05/22 11/05/22 18:59 06:59 18:59 Intake Total 236 Output Total 400 Balance 236 -400 Intake: Oral 236 Output: Urine 400 Other: Voiding Method External Catheter External Catheter - Exam GENERAL: The patient is alert and oriented x3, not in any acute distress. Well developed, well nourished. HEENT: Pupils are round and equally reacting to light. EOMI. No scleral icterus. No conjunctival pallor. Normocephalic, atraumatic. No pharyngeal erythema. No thyromegaly. CARDIOVASCULAR: S1 and S2 present. No murmurs, rubs, or gallops. PULMONARY: Chest is clear to auscultation, no wheezing or crackles. ABDOMEN: Soft, nontender, nondistended, normoactive bowel sounds. No palpable organomegaly. MUSCULOSKELETAL: No joint swelling or deformity. -EXTREMITIES: No cyanosis, clubbing, or pedal edema. bruise on her left knee with some blistering and mild surrounding bruising which is fading away. NEUROLOGICAL: Gross neurological examination did not reveal any focal deficits. SKIN: No rashes. no petechiae. - Labs CBC & Chem 7: 11/04/22 09:53 11/04/22 09:53 Labs: Microbiology - Last 24 Hours (Table) 11/01/22 16:00 Blood Culture - Preliminary Blood No Growth after 72 hours 11/01/22 16:22 Blood Culture - Preliminary Blood No Growth after 72 hours Assessment and Plan Assessment: Fell at home without losing consciousness Left knee bruising with no evidence of fracture Chronic heart failure with no acute exacerbation Chronic atrial fibrillation on liquids Chronic obstructive pulmonary disease, no acute exacerbation Chronic hypoxic respiratory failure Hypertension Obesity with BMI 42.8 Plan: Continue with Eliquis home dose of 5 mg The patient off antibiotic Cardiology and orthopedic team signed off the case. Patient wants to go to subacute rehab, psych social worker indicates Labs and medication were reviewed.. Continue same treatment. Continue with symptomatic treatment. Resume home medication. Monitor labs and vitals. DVT and GI prophylaxis. Further recommendations as per clinical course of the patient DVT prophylaxis: Eliquis GI Prophylaxis: Pepcid PT/OT: STEFANY Prognosis is guarded Patient is medically stable for discharge pending placement
--- NOTE | 2022-11-05 15:08 | P.PN ---
Subjective Progress Note Date: 11/05/22 Principal diagnosis: Left knee bruising/blister and a question of cellulitis Patient is a 77-year-old female with a past medical history significant for left knee replacement more than 20 years ago by . Patient presenting to the ER last evening for evaluation of worsening bilateral lower extremity edema apparently patient also have a fall about a week ago and did hav e significant bruising to the left lower extremity and has developed a blister on the left knee area, CT did not show any fracture. On today's evaluation that is 11/05/2022, the patient continues to be afebrile, patient pain to the left knee has decreased in intensity, the patient right knee blister size is about the same and hasn't ruptured, surrounding bruising and swelling has decreased, denies any chest pain or shortness of breath occasional cough no abdominal pain no diarrhea Objective - Vital Signs Vital signs: Vital Signs Temp 98.2 F 11/05/22 08:30 Pulse 80 11/05/22 11:29 Resp 18 11/05/22 08:30 BP 102/61 11/05/22 08:30 Pulse Ox 95 11/05/22 08:30 FiO2 5 11/02/22 11:50 Intake & Output 11/04/22 11/05/22 11/05/22 18:59 06:59 18:59 Intake Total 236 Output Total 400 Balance 236 -400 Intake: Oral 236 Output: Urine 400 Other: Voiding Method External Catheter External Catheter - Exam GENERAL DESCRIPTION: An elderly female lying in bed in no distress RESPIRATORY SYSTEM: Unlabored breathing , decreased breath sounds at bases HEART: S1 S2 regular rate and rhythm , ABDOMEN: Soft , no tenderness EXTREMITIES: Diffuse swelling to bilateral lower extremity, patient did have a extensive bruising to the left thigh with him he has slightly decreased as well as the area with a blister mostly clear fluid - Labs CBC & Chem 7: 11/04/22 09:53 11/04/22 09:53 Labs: Microbiology - Last 24 Hours (Table) 11/01/22 16:00 Blood Culture - Preliminary Blood No Growth after 72 hours 11/01/22 16:22 Blood Culture - Preliminary Blood No Growth after 72 hours Assessment and Plan (1) Blister of knee, left Current Visit: Yes Status: Acute Code(s): S80.222A - BLISTER (NONTHERMAL), LEFT KNEE, INITIAL ENCOUNTER SNOMED Code(s): 110718260 (2) Superficial bruising of lower leg Current Visit: Yes Status: Acute Code(s): S80.10XA - CONTUSION OF UNSPECIFIED LOWER LEG, INITIAL ENCOUNTER SNOMED Code(s): 40036762 Plan: 1patient with extensive bruising to the left knee and thigh area related to the recent fall and traumatic no evidence of any cellulitis patient also have significant bruising to the left knee area and the blister formation but no e vidence of cellulitis clinically treatment will be mostly local and supportive 2we will cover the blister area with a dry 4 x 4 if the blister ruptured we will apply Aquacel silver dressing, to be changed daily 3we will monitor the patient closely off antibiotic therapy at this point Time with Patient: Less than 30
[2022-11-05] MEDS: LOSARTAN 25 MG TAB PO SCH (20:26)
[2022-11-05] MEDS: MELATONIN 5 MG TABLET PO SCH (20:26)
[2022-11-06] MEDS: SYMBICORT 160-4.5 MCG INHALER INHALATION SCH ×2 (07:24→19:42)
[2022-11-06] MEDS: IPRATROPIUM-ALBUTEROL 3 ML NEB INHALATION SCH ×4 (07:24→19:42)
[2022-11-06] MEDS: APIXABAN 5 MG TAB PO SCH ×2 (08:22→20:36)
[2022-11-06] MEDS: FAMOTIDINE 20 MG TAB PO SCH (08:22)
[2022-11-06] MEDS: FUROSEMIDE 40 MG TAB PO SCH (08:22)
[2022-11-06] MEDS: POTASSIUM CHLORIDE ER 20 MEQ TAB.ER PO SCH ×2 (08:22→20:35)
[2022-11-06] MEDS: hydroCHLOROthiazide 12.5 MG CAP PO SCH (08:22)
--- NOTE | 2022-11-06 11:59 | P.PN ---
Subjective This is a pleasant 77 years old female with multiple medical problems presents from home because she fell while she was trying to get to the bathroom as every night, she denies dizziness or syncope, she did not hit her head and she denies diarrhea or abdominal pain or chest pain or dyspnea. She has history of COPD, her knitting machine operator is Dr. Sotomayor and she hasn't 2 L oxygen via nasal cannula at home. She has a bruise on her left knee with some blistering and mild surrounding bruising which is fading away. No fracture, orthopedic team evaluated the patient and signed off the case, no need for surgical intervention. Patient also with no evidence of infection and antibiotic was discontinued. Patient with no respiratory or urinary tract symptoms. She tolerates diet well. She is hemodynamically stable, labs reviewed and the looks stable. She remains on home dose of Eliquis. Health Service Worker will see the patient and as needed basis. Patient currently medically stable pending placement, patient thinks she needs to go to [facility], social media specialist and a Place 11/05/2012 In general, he is doing well, no new complaints Hemodynamically stable. She's kept off antibiotics for now with no fever or worsening symptoms Eliquis resumed yesterday with no issues Discussed the case with social media specialist, prior authorization Patient is medically stable for discharge pending placement Possible discharge in 24-48 hours 11/06/2012 Patient is clinically stable, no new complaint Vitals stable. Left knee pain and bruising is controlled Patient of antibiotic Patient is medically stable for discharge pending placement Objective - Vital Signs Vital signs: Vital Signs Temp 98.4 F 11/06/22 07:32 Pulse 84 11/06/22 11:29 Resp 16 11/06/22 08:00 BP 114/67 11/06/22 07:32 Pulse Ox 99 11/06/22 07:32 FiO2 5 11/02/22 11:50 Intake & Output 11/05/22 11/06/22 11/06/22 18:59 06:59 18:59 Intake Total 650 600 Output Total 376 295 7780 Balance -125 100 -1000 Weight 98.2 kg Intake: Oral 650 600 Output: Urine 351 449 5414 Other: Voiding Method External Catheter External Catheter External Catheter # Bowel Movements 1 - Exam GENERAL: The patient is alert and oriented x3, not in any acute distress. Well developed, well nourished. HEENT: Pupils are round and equally reacting to light. EOMI. No scleral icterus. No conjunctival pallor. Normocephalic, atraumatic. No pharyngeal erythema. No thyromegaly. CARDIOVASCULAR: S1 and S2 present. No murmurs, rubs, or gallops. PULMONARY: Chest is clear to auscultation, no wheezing or crackles. ABDOMEN: Soft, nontender, nondistended, normoactive bowel sounds. No palpable organomegaly. MUSCULOSKELETAL: No joint swelling or deformity. -EXTREMITIES: No cyanosis, clubbing, or pedal edema. bruise on her left knee with some blistering and mild surrounding bruising which is fading away. NEUROLOGICAL: Gross neurological examination did not reveal any focal deficits. SKIN: No rashes. no petechiae. - Labs CBC & Chem 7: 11/04/22 09:53 11/04/22 09:53 Labs: Microbiology - Last 24 Hours (Table) 11/01/22 16:00 Blood Culture - Preliminary Blood No Growth after 96 hours 11/01/22 16:22 Blood Culture - Preliminary Blood No Growth after 96 hours Assessment and Plan Assessment: Fell at home without losing consciousness Left knee bruising with no evidence of fracture Chronic heart failure with no acute exacerbation Chronic atrial fibrillation on liquids Chronic obstructive pulmonary disease, no acute exacerbation Chronic hypoxic respiratory failure Hypertension Obesity with BMI 42.8 Plan: Continue with Eliquis home dose of 5 mg The patient off antibiotic Cardiology and orthopedic team signed off the case. Patient wants to go to subacute rehab, social media specialist indicates Labs and medication were reviewed.. Continue same treatment. Continue with symptomatic treatment. Resume home medication. Monitor labs and vitals. DVT and GI prophylaxis. Further recommendations as per clinical course of the patient DVT prophylaxis: Eliquis GI Prophylaxis: Pepcid PT/OT: STEFANY Prognosis is guarded Patient is medically stable for discharge pending placement
--- NOTE | 2022-11-06 13:39 | P.PN ---
Subjective Progress Note Date: 11/06/22 Principal diagnosis: Left knee bruising/blister and a question of cellulitis Patient is a 77-year-old female with a past medical history significant for left knee replacement more than 20 years ago by . Patient presenting to the ER last evening for evaluation of worsening bilateral lower extremity edema apparently patient also have a fall about a week ago and did hav e significant bruising to the left lower extremity and has developed a blister on the left knee area, CT did not show any fracture. On today's evaluation that is 11/06/2022, the patient remains to be afebrile, patient pain to the left knee has decreased in intensity, the patient right knee blister size is about the same and hasn't ruptured as of 11/06/2022, however the surrounding bruising and swelling has decreased, the patient denies any chest pain or shortness of breath occasional cough no abdominal pain no diarrhea Objective - Vital Signs Vital signs: Vital Signs Temp 98.3 F 11/06/22 12:40 Pulse 87 11/06/22 12:40 Resp 18 11/06/22 12:40 BP 111/71 11/06/22 12:40 Pulse Ox 94 L 11/06/22 12:40 FiO2 5 11/02/22 11:50 Intake & Output 11/05/22 11/06/22 11/06/22 18:59 06:59 18:59 Intake Total 650 600 Output Total 566 281 7697 Balance -125 100 -1000 Weight 98.2 kg Intake: Oral 650 600 Output: Urine 916 649 [id number] Other: Voiding Method External Catheter External Catheter External Catheter # Bowel Movements 1 - Exam GENERAL DESCRIPTION: An elderly female lying in bed in no distress RESPIRATORY SYSTEM: Unlabored breathing , decreased breath sounds at bases HEART: S1 S2 regular rate and rhythm , ABDOMEN: Soft , no tenderness EXTREMITIES: Diffuse swelling to bilateral lower extremity, patient left knee blister is intact surrounding bruising has improved - Labs CBC & Chem 7: 11/04/22 09:53 11/04/22 09:53 Labs: Microbiology - Last 24 Hours (Table) 11/01/22 16:00 Blood Culture - Preliminary Blood No Growth after 96 hours 11/01/22 16:22 Blood Culture - Preliminary Blood No Growth after 96 hours Assessment and Plan (1) Blister of knee, left Current Visit: Yes Status: Acute Code(s): S80.222A - BLISTER (NONTHERMAL), LEFT KNEE, INITIAL ENCOUNTER SNOMED Code(s): 198205604 (2) Superficial bruising of lower leg Current Visit: Yes Status: Acute Code(s): S80.10XA - CONTUSION OF UNSPECIFIE D LOWER LEG, INITIAL ENCOUNTER SNOMED Code(s): 66974898 Plan: 1patient with extensive bruising to the left knee and thigh area related to the recent fall and traumatic no evidence of any cellulitis patient also have significant bruising to the left knee area and the blister formation but no evidence of cellulitis clinically treatment will be mostly local and supportive 2to continue local wound care with blister area with a dry 4 x 4 if the blister ruptured we will apply Aquacel silver dressing, to be changed daily 3-patient seems to be doing well off antibiotic therapy and will monitor closely off antibiotic Time with Patient: Less than 30
[2022-11-06] MEDS: LOSARTAN 25 MG TAB PO SCH (20:35)
[2022-11-06] MEDS: MELATONIN 5 MG TABLET PO SCH (20:35)
[2022-11-07] MEDS: SYMBICORT 160-4.5 MCG INHALER INHALATION SCH ×2 (07:47→19:36)
[2022-11-07] MEDS: IPRATROPIUM-ALBUTEROL 3 ML NEB INHALATION SCH ×4 (07:47→19:35)
[2022-11-07] MEDS: APIXABAN 5 MG TAB PO SCH ×2 (08:31→20:53)
[2022-11-07] MEDS: FUROSEMIDE 40 MG TAB PO SCH (08:32)
[2022-11-07] MEDS: FAMOTIDINE 20 MG TAB PO SCH (08:32)
[2022-11-07] MEDS: POTASSIUM CHLORIDE ER 20 MEQ TAB.ER PO SCH ×2 (08:32→20:53)
[2022-11-07] MEDS: hydroCHLOROthiazide 12.5 MG CAP PO SCH (08:32)
[2022-11-07] MEDS: NYSTATIN 100,000 UNIT/GM POWD 15 GM TOPICAL SCH ×3 (12:03→20:53)
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
--- NOTE | 2022-11-07 13:17 | P.PN ---
Subjective Progress Note Date: 11/07/22 Principal diagnosis: Left knee bruising/blister and a question of cellulitis Patient is a 77-year-old female with a past medical history significant for left knee replacement more than 20 years ago by . Patient presenting to the ER last evening for evaluation of worsening bilateral lower extremity edema apparently patient also have a fall about a week ago and did hav e significant bruising to the left lower extremity and has developed a blister on the left knee area, CT did not show any fracture. On today's evaluation that is 11/07/2022, the patient continues to be afebrile, patient pain to the left knee has decreased in intensity, the patient right knee blister hasn't ruptured yet, the patient denies having any chest pain or shortness with occasional cough no abdominal pain or diarrhea Objective - Vital Signs Vital signs: Vital Signs Temp 98.3 F 11/07/22 07:49 Pulse 70 11/07/22 11:21 Resp 16 11/07/22 07:49 BP 99/54 11/07/22 07:49 Pulse Ox 97 11/07/22 07:50 FiO2 5 11/02/22 11:50 Intake & Output 11/06/22 11/07/22 11/07/22 18:59 06:59 18:59 Output Total 1315 400 Balance -1315 -400 Output: Urine 1315 400 Other: Voiding Method External Catheter External Catheter # Bowel Movements 1 1 - Exam GENERAL DESCRIPTION: An elderly female lying in bed in no distress RESPIRATORY SYSTEM: Unlabored breathing , decreased breath sounds at bases HEART: S1 S2 regular rate and rhythm , ABDOMEN: Soft , no tenderness EXTREMITIES: Diffuse swelling to bilateral lower extremity, patient left knee blister is intact surrounding bruising has improved - Labs CBC & Chem 7: 11/04/22 09:53 11/04/22 09:53 Labs: Microbiology - Last 24 Hours (Table) 11/01/22 16:22 Blood Culture - Preliminary Blood No Growth after 120 hours 11/01/22 16:00 Blood Culture - Preliminary Blood No Growth after 120 hours Assessment and Plan (1) Blister of knee, left Current Visit: Yes Status: Acute Code(s): S80.222A - BLISTER (NONTHERMAL), LEFT KNEE, INITIAL ENCOUNTER SNOMED Code(s): 522373934 (2) Superficial bruising of lower leg Current Visit: Yes Status: Acute Code(s): S80.10XA - CONTUSION OF UNSPEC IFIED LOWER LEG, INITIAL ENCOUNTER SNOMED Code(s): 33070274 Plan: 1patient with extensive bruising to the left knee and thigh area related to the recent fall and traumatic no evidence of any cellulitis patient also have significant bruising to the left knee area and the blister formation but no evidence of cellulitis clinically treatment will be mostly local and supportive 2to continue local wound care with blister area with a dry 4 x 4 if the blister ruptured we will apply Aquacel silver dressing, to be changed daily, No need for antibiotic therapy at this point Time with Patient: Less than 30
[2022-11-07] MEDS: LOSARTAN 25 MG TAB PO SCH (20:53)
[2022-11-07] MEDS: MELATONIN 5 MG TABLET PO SCH (20:53)
[2022-11-08] MEDS: IPRATROPIUM-ALBUTEROL 3 ML NEB INHALATION SCH ×4 (07:28→20:41)
[2022-11-08] MEDS: SYMBICORT 160-4.5 MCG INHALER INHALATION SCH ×2 (07:29→20:42)
[2022-11-08] MEDS: FUROSEMIDE 40 MG TAB PO SCH (09:14)
[2022-11-08] MEDS: hydroCHLOROthiazide 12.5 MG CAP PO SCH (09:15)
[2022-11-08] MEDS: NYSTATIN 100,000 UNIT/GM POWD 15 GM TOPICAL SCH ×3 (09:15→20:51)
[2022-11-08] MEDS: APIXABAN 5 MG TAB PO SCH ×2 (09:15→20:51)
[2022-11-08] MEDS: FAMOTIDINE 20 MG TAB PO SCH (09:15)
[2022-11-08] MEDS: POTASSIUM CHLORIDE ER 20 MEQ TAB.ER PO SCH ×2 (09:15→20:51)
[2022-11-08 15:17] VITALS: BMI 42.0
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
[2022-11-08] MEDS: LOSARTAN 25 MG TAB PO SCH (20:51)
[2022-11-08] MEDS: MELATONIN 5 MG TABLET PO SCH (20:51)
[2022-11-09] MEDS: SYMBICORT 160-4.5 MCG INHALER INHALATION SCH ×2 (07:30→19:45)
[2022-11-09] MEDS: IPRATROPIUM-ALBUTEROL 3 ML NEB INHALATION SCH ×4 (07:30→19:45)
[2022-11-09] MEDS: POTASSIUM CHLORIDE ER 20 MEQ TAB.ER PO SCH ×2 (08:30→20:50)
[2022-11-09] MEDS: FUROSEMIDE 40 MG TAB PO SCH (08:30)
[2022-11-09] MEDS: hydroCHLOROthiazide 12.5 MG CAP PO SCH (08:30)
[2022-11-09] MEDS: FAMOTIDINE 20 MG TAB PO SCH (08:30)
[2022-11-09] MEDS: APIXABAN 5 MG TAB PO SCH ×2 (08:30→20:50)
[2022-11-09] MEDS: NYSTATIN 100,000 UNIT/GM POWD 15 GM TOPICAL SCH ×3 (08:31→20:51)
[2022-11-09] MEDS: LOSARTAN 25 MG TAB PO SCH (20:46)
[2022-11-09] MEDS: MELATONIN 5 MG TABLET PO SCH (20:50)
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
[2022-11-10 03:26] VITALS: TEMP 97.8
[2022-11-10] MEDS: SYMBICORT 160-4.5 MCG INHALER INHALATION SCH (07:27)
[2022-11-10] MEDS: IPRATROPIUM-ALBUTEROL 3 ML NEB INHALATION SCH ×2 (07:27→12:06)
[2022-11-10 08:47] VITALS: BP 96/49; RESP 18
[2022-11-10] MEDS: POTASSIUM CHLORIDE ER 20 MEQ TAB.ER PO SCH (09:20)
[2022-11-10] MEDS: hydroCHLOROthiazide 12.5 MG CAP PO SCH (09:20)
[2022-11-10] MEDS: FUROSEMIDE 40 MG TAB PO SCH (09:20)
[2022-11-10] MEDS: FAMOTIDINE 20 MG TAB PO SCH (09:20)
[2022-11-10] MEDS: APIXABAN 5 MG TAB PO SCH (09:20)
[2022-11-10] MEDS: NYSTATIN 100,000 UNIT/GM POWD 15 GM TOPICAL SCH (09:21)
--- NOTE | 2022-11-10 12:14 | P.DS ---
Providers Date of admission: 11/01/22 19:43 Expected date of discharge: 11/10/22 Attending physician: Adrienne Larios Consults: 11/01/22 19:43 Consult Physician Routine Consulting Provider: [facility] Consult Reason/Comments: chf Do you want consulting provider notified?: Yes 11/02/22 12:13 Consult Physician Routine Consulting Provider: Wyatt Quan Consult Reason/Comments: blister leg Do you want consulting provider notified?: Yes 11/02/22 15:15 Consult Physician Stat Consulting Provider: Reagan Siegel Consult Reason/Comments: Left lower extremity hematoma and blister Do you want consulting provider notified?: Yes 11/03/22 14:02 Consult Physician Stat Consulting Provider: [facility] Consult Reason/Comments: fall on left leg Do you want consulting provider notified?: Yes Primary care physician: Kimberly Molina [place] [facility] Course: 77 years old female with multiple medical problems presents from home because she fell while she was trying to get to the bathroom as every night, she denies dizziness or syncope, she did not hit her head and she denies diarrhea or abdominal pain or chest pain or dyspnea. She has history of COPD, her market researcher is Dr. Sotomayor and she hasn't 2 L oxygen via nasal cannula at home. She has a bruise on her left knee with some blistering and mild surrounding bruising which is fading away. No fracture, orthopedic team evaluated the patient and signed off the case, no need for surgical intervention. Patient also with no evidence of infection and antibiotic was discontinued. Patient with no respiratory or urinary tract symptoms. She tolerates diet well. She is hemodynamically stable, labs reviewed and the looks stable. She remains on home dose of Eliquis. Portfolio Assistant will see the patient and as needed basis. Patient currently medically stable pending placement, patient thinks she needs to go to [facility], director social welfare and a Place 11/05/2012 In general, he is doing well, no new complaints Hemodynamically stable. She's kept off antibiotics for now with no fever or worsening symptoms Eliquis resumed yesterday with no issues Discussed the case with director social welfare, prior authorization Patient is medically stable for discharge pending placement Possible discharge in 24-48 hours Fell at home without losing consciousness Left knee bruising with no evidence of fracture Chronic heart failure with no acute exacerbation Chronic atrial fibrillation on liquids Chronic obstructive pulmonary disease, no acute exacerbation Chronic hypoxic respiratory failure Hypertension Obesity with BMI 42.8 11/06/2012 Patient is clinically stable, no new complaint Vitals stable. Left knee pain and bruising is controlled Patient of antibiotic Patient is medically stable for discharge pending placement 11/07/2022 Patient is clinically doing well No new complaint Vitals are stable Patient currently medically stable for discharge pending placement subacute rehab, probably tomorrow 24 hour interval change 11/09/2022 Patient is seen and evaluated in room at bedside; voices no specific complaints Vital signs are stable with temperature of 98.4, pulse 79, respirations 16 and blood pressure of 96/51 with O2 saturation 95% on 2 L patient with extensive bruising to the left knee and thigh area related to the recent fall and traumatic no evidence of any cellulitis patient also have significant bruising to the left knee area and the blister formation but no evidence of cellulitis clinically treatment will be mostly local and supportive to continue local wound care with blister area with a dry 4 x 4 if the blister ruptured we will apply Aquacel silver dressing, to be changed daily, No need for antibiotic therapy at this point Patient is stable to be transferred back to skilled rehab Patient Condition at Discharge: Stable Plan - Discharge Summary Discharge Rx Participant: No New Discharge Prescriptions: New Potassium Chloride ER [K-Dur 20] 20 meq PO BID 30 Days #60 tab Furosemide [Lasix] 40 mg PO DAILY 30 Days #30 tab Famotidine [Pepcid] 20 mg PO DAILY tab Ketorolac [Toradol] 10 mg PO Q6HR 10 Days #30 tab Continue Apixaban [Eliquis] 5 mg PO BID Albuterol Nebulized [Ventolin Nebulized] 2.5 mg INHALATION RT-TID PRN PRN Reason: Shortness Of Breath Ipratropium-Albuterol Nebulize [Duoneb 0.5 mg-3 mg/3 ml Soln] 3 ml INHALATION RT-QID hydroCHLOROthiazide [Hydrodiuril] 12.5 mg PO DAILY Budesonide/Glycopyr/Formoterol [Breztri Aerosphere Inhaler] 2 puff INHALATION RT-BID Losartan-Hctz 50-12.5 mg [Hyzaar 50-12.5] 1 tab PO DAILY Discharge Medication List Apixaban [Eliquis] 5 mg PO BID 07/13/19 [History] Albuterol Nebulized [Ventolin Nebulized] 2.5 mg INHALATION RT-TID PRN 07/26/20 [History] Budesonide/Glycopyr/Formoterol [Breztri Aerosphere Inhaler] 2 puff INHALATION RT-BID 12/08/21 [History] Ipratropium-Albuterol Nebulize [Duoneb 0.5 mg-3 mg/3 ml Soln] 3 ml INHALATION RT-QID 12/08/21 [History] Losartan-Hctz 50-12.5 mg [Hyzaar 50-12.5] 1 tab PO DAILY 11/01/22 [History] hydroCHLOROthiazide [Hydrodiuril] 12.5 mg PO DAILY 11/01/22 [History] Famotidine [Pepcid] 20 mg PO DAILY tab 11/10/22 [Rx] Furosemide [Lasix] 40 mg PO DAILY 30 Days #30 tab 11/10/22 [Rx] Ketorolac [Toradol] 10 mg PO Q6HR 10 Days #30 tab 11/10/22 [Rx] Potassium Chloride ER [K-Dur 20] 20 meq PO BID 30 Days #60 tab 11/10/22 [Rx] Follow up Appointment(s)/Referral(s): Franky Maya MD [STAFF PHYSICIAN] - 1 Week Geoffrey Day DO [Doctor of Osteopathic Medicine] - 1 Week (Orthopedic) [facility], [NON-STAFF] - ([facility] will call you to arrange a visit) Kimberly Molina MD [Primary Care Provider] - 1-2 days Reagan Siegel MD [STAFF PHYSICIAN] - 1 Week Discharge Disposition: TRANSFER TO SNF/ECF
[2022-11-10 12:18] VITALS: PULSE 90
== END 2022-11-10 14:42 | DRG 292 ==
LOC: EC 12:41 → 3SCARD 19:43 → 5NMEDONC 11-05 17:30
PROVIDERS: ADMIT Hospitalist; ATTEND Hospitalist
DX: I11.0 Hypertensive heart disease with heart failure (principal); I31.39 Other pericardial effusion (noninflammatory); I48.20 Chronic atrial fibrillation, unspecified; Z68.41 Body mass index [BMI] 40.0-44.9, adult; J96.11 Chronic respiratory failure with hypoxia; I27.29 Other secondary pulmonary hypertension; E66.9 Obesity, unspecified; I08.1 Rheumatic disorders of both mitral and tricuspid valves; I50.32 Chronic diastolic (congestive) heart failure; J44.9 Chronic obstructive pulmonary disease, unspecified; S80.12XA Contusion of left lower leg, initial encounter; E78.5 Hyperlipidemia, unspecified; G47.33 Obstructive sleep apnea (adult) (pediatric); S80.02XA Contusion of left knee, initial encounter; S80.222A Blister (nonthermal), left knee, initial encounter; R01.1 Cardiac murmur, unspecified; R26.9 Unspecified abnormalities of gait and mobility; S70.12XA Contusion of left thigh, initial encounter; W18.30XA Fall on same level, unspecified, initial encounter; Y92.009 Unspecified place in unspecified non-institutional (private) residence as the place of occurrence of the external cause; Z96.652 Presence of left artificial knee joint; Z20.822 Contact with and (suspected) exposure to COVID-19; Z87.891 Personal history of nicotine dependence; Z79.01 Long term (current) use of anticoagulants; Z79.899 Other long term (current) drug therapy; Z79.51 Long term (current) use of inhaled steroids; Z90.2 Acquired absence of lung [part of]; Z82.49 Family history of ischemic heart disease and other diseases of the circulatory system
CPT/HCPCS: 36415; 70450; 71046; 72125; 80048; 80053; 81003; 82550; 83605; 83735; 83880; 84484; 85025; 85610; 85730; 87040; 87636; 93005; 93306; 94640; 94760; 96365; 96374; 96375; 99285

== ENCOUNTER 2023-04-14 12:49 | Inpatient (IN) | payer MEDICARE ==
--- NOTE | 2023-04-14 13:04 | ED ---
SOB HPI - General Chief Complaint: Shortness of Breath Stated Complaint: sob - sent by pcp Time Seen by Provider: 04/14/23 12:50 Source: patient Mode of arrival: ambulatory Limitations: no limitations - History of Present Illness Initial Comments: 77-year-old female with past medical history of A. fib on Eliquis, COPD who wears 2 L home O2 and CPAP at night, CHF who presents to the emergency department with significant respiratory failure. States that she has been coughing for the past couple of days and has had some bloody sputum. She has not been wearing her CPAP. She has been wearing her 2 L of oxygen however remained significantly short of breath. She went to Dr. Molina's office today. When she arrived she was obtunded. Dr. Molina staff had to pull the patient from the vehicle. They checked a pulse ox and it was 36%. She was placed on 5 L of oxygen and EMS was called. They did bag the patient. She became more responsive and they placed her on CPAP. She denies chest pain. No nausea or vomiting. has been sick with similar symptoms. No fevers. No worsening lower extremity swelling. Has been taking all of her medications as directed. No other alleviating, precipitating or modifying factors - Related Data Home Medications Medication Instructions Recorded Confirmed Apixaban [Eliquis] 5 mg PO BID 07/13/19 04/14/23 Albuterol Nebulized [Ventolin 2.5 mg INHALATION RT-Q3H PRN 07/26/20 04/14/23 Nebulized] Ipratropium-Albuterol Nebulize 3 ml INHALATION RT-QID 12/08/21 04/14/23 [Duoneb 0.5 mg-3 mg/3 ml Soln] Losartan-Hctz 50-12.5 mg [Hyzaar 1 tab PO DAILY 11/01/22 04/14/23 50-12.5] Fluticasone/Umeclidin/Vilanter 1 puff INHALATION RT-DAILY 04/14/23 04/14/23 [Trelegy Ellipta 100-62.5-25] Furosemide [Lasix] 20 mg PO DAILY 04/14/23 04/14/23 Potassium Chloride ER [K-Dur 20] 20 meq PO DAILY 04/14/23 04/14/23 Allergies Allergy/AdvReac Type Severity Reaction Status Date / Time No Known Allergies Allergy Verified 04/14/23 14:13 Review of Systems ROS Statement: Those systems with pertinent positive or pertinent negative responses have been documented in the HPI. ROS Other: All systems not noted in ROS Statement are negative. Past Medical History Past Medical History: Atrial Fibrillation, COPD, Hypertension Additional Past Medical History / Comment(s): COPD, hypertension, secondary pulmonary hypertension, chronic hypoxic respiratory failure, chronic atrial fibrillation, hyperlipidemia, obstructive sleep apnea History of Any Multi-Drug Resistant Organisms: None Reported Additional Past Surgical History / Comment(s): Right lung lung lobectomy, hernia repair and the patient has a large anterior abdominal wall incision, hyst erectomy, knee surgery, cholecystectomy Past Anesthesia/Blood Transfusion Reactions: No Reported Reaction Past Psychological History: No Psychological Hx Reported Smoking Status: Never smoker Past Alcohol Use History: None Reported Past Drug Use History: None Reported - Past Family History Mother Family Medical History: Cancer Father Family Medical History: Coronary Artery Disease (CAD) General Exam Limitations: physical limitation (Short of breath) General appearance: alert, in distress Head exam: Present: atraumatic, normocephalic, normal inspection Eye exam: Present: normal appearance, PERRL, EOMI. Absent: scleral icterus, conjunctival injection, periorbital swelling ENT exam: Present: normal exam, mucous membranes moist Neck exam: Present: normal inspection. Absent: tenderness, meningismus, lymphadenopathy Respiratory exam: Present: rales, accessory muscle use, decreased breath sounds, other (Tachypnea) Cardiovascular Exam: Present: regular rate, normal rhythm, normal heart sounds. Absent: systolic murmur, diastolic murmur, rubs, gallop, clicks GI/Abdominal exam: Present: soft, normal bowel sounds. Absent: distended, tende rness, guarding, rebound, rigid Extremities exam: Present: pedal edema Neurological exam: Present: alert, oriented X3, CN II-XII intact Psychiatric exam: Present: anxious Skin exam: Present: warm, dry, intact Course Vital Signs 04/14/23 04/14/23 04/14/23 12:50 12:52 12:54 Temperature 98.2 F Pulse Rate 99 98 Respiratory 30 H 30 H Rate Blood Pressure 108/42 O2 Sat by Pulse 92 L 91 L Oximetry Fraction of 40 Inspired Oxygen (FIO2) 04/14/23 04/14/23 04/14/23 16:24 16:27 16:36 Temperature Pulse Rate 89 81 Respiratory 22 22 Rate Blood Pressure O2 Sat by Pulse 91 L Oximetry Fraction of 40 Inspired Oxygen (FIO2) 04/14/23 04/14/23 04/14/23 17:50 19:38 19:52 Temperature 97.6 F Pulse Rate 87 67 78 Respiratory 26 H 27 H Rate Blood Pressure 118/42 132/56 O2 Sat by Pulse 90 L 90 L Oximetry Fraction of 40 Inspired Oxygen (FIO2) 04/14/23 04/14/23 04/14/23 20:09 20:23 20:33 Temperature Pulse Rate 87 82 Respiratory 32 H Rate Blood Pressure 125/41 O2 Sat by Pulse 88 L Oximetry Fraction of 60 Inspired Oxygen (FIO2) Procedures - ABG Interpretation Ph: 7.31 PCO2: 80.9 PO2: 62.8 Bicarbonate: 41 Interpretation: respiratory acidosis Medical Decision Making - Medical Decision Making Was pt. sent in by a medical professional or institution (, PA, ENGINEERING TECH, urgent care, hospital, or prison...) When possible be specific @ -Dr. Molina Did you speak to anyone other than the patient for history (EMS, parent, family, police, friend...)? What history was obtained from this source @ -EMS and Dr. Molina Did you review nursing and triage notes (agree or disagree)? Why? @ -I reviewed and agree with nursing and triage notes Were old charts reviewed (outside hosp., previous admission, EMS record, old EKG, old radiological studies, urgent care reports/EKG's, prison records)? Report findings @ -I reviewed the patient's record from when she was hospitalized in October Differential Diagnosis (chest pain, altered mental status, abdominal pain women, abdominal pain men, vaginal bleeding, weakness, fever, dyspnea, syncope, headache, dizziness, GI bleed, back pain, seizure, CVA, palpatations, mental health, musculoskeletal)? @ -Differential Dyspnea: Coronary syndrome, arrhythmia, tamponade, asthma, COPD, pulmonary embolism, pneumonia, pneumothorax, pulmonary effusion, anaphylaxis, diabetic ketoacidosis, flailed chest, pulmonary contusion, diaphragmatic rupture, anemia, neuromuscular, this is not meant to be an all-inclusive list. EKG interpreted by me (3pts min.). @ -Yes and demonstrates A. fib with a rate of 95. QRS 72. QTC is 330. No acute ST segment elevations or depressions X-rays interpreted by me (1pt min.). @ -Yes and demonstrates right-sided pneumonia CT interpreted by me (1pt min.). @ -None done U/S interpreted by me (1pt. min.). @ -None done What testing was considered but not performed or refused? (CT, X-rays, U/S, labs)? Why? @ -None What meds were considered but not given or refused? Why? @ -None Did you discuss the management of the patient with other professionals (professionals i.e. , PA, ENGINEERING TECH, lab, RT, psych nurse, social group worker, ticket clerk, teacher, mobile patrol officer, bilingual patient support caseworker)? Give summary @ -dr. Molina and Dr. hinojosa who agreed to admit the patient Was smoking cessation discussed for >3mins.? @ -No Was critical care preformed (if so, how long)? @ -5 minutes for BiPAP management Were there social determinants of health that impacted care today? How? (H omelessness, low income, unemployed, alcoholism, drug addiction, transportation, low edu. Level, literacy, decrease access to med. care, penitentiary, rehab)? @ -No Was there de-escalation of care discussed even if they declined (Discuss DNR or withdrawal of care, Hospice)? DNR status @ -No What co-morbidities impacted this encounter? (DM, HTN, Smoking, COPD, CAD, Cancer, CVA, ARF, Chemo, Hep., AIDS, mental health diagnosis, sleep apnea, morbid obesity)? @ -COPD, A. fib, CHF Was patient admitted / discharged? Hospital course, mention meds given and route, prescriptions, significant lab abnormalities, going to OR and other pertinent info. @ -Upon arrival patient was promptly placed in trauma 1. She is transitioned from CPAP to BiPAP. Placed on continuous pulse ox and cardiac monitoring. 12- lead EKG is obtained. Chest x-rays performed and laboratory studies are conducted. Patient is markedly elevated white blood cell count. Chest x-ray demonstrates a right-sided pneumonia. Antibiotics are administered. Recommended admission for which the patient was agreeable. Spoke with Dr. Hinojosa who agreed to admit the patient with Dr. Herrera to consult. Patient currently awaiting a bed on the floor in stable condition Undiagnosed new problem with uncertain prognosis? @ -Yes Drug Therapy requiring intensive monitoring for toxicity (Heparin, Nitro, Insulin, Cardizem)? @ -No Were any procedures done? @ -No Diagnosis/symptom? @ -acute hypoxic respiratory failure, acute BiPAP dependence, community- acquired pneumonia, CHF exacerbation Acute, or Chronic, or Acute on Chronic? @ -Acute Uncomplicated (without systemic symptoms) or Complicated (systemic symptoms)? @ -Complicated Side effects of treatment? @ -No Exacerbation, Progression, or Severe Exacerbation? @ -Exacerbation Poses a threat to life or bodily function? How? (Chest pain, USA, SC, pneumonia, PE, COPD, DKA, ARF, appy, cholecystitis, CVA, Diverticulitis, Homicidal, Suicida l, threat to staff... and all critical care pts) @ -Yes patient had significant respiratory distress to where she was unconscious and required bagging - Lab Data Result diagrams: 04/14/23 13:05 04/14/23 13:05 Lab Results 04/14/23 04/14/23 04/14/23 Range/Units 13:05 13:05 13:05 WBC 25.7 H (3.8-10.6) k/uL RBC 4.59 (3.80-5.40) m/uL Hgb 13.9 (11.4-16.0) gm/dL Hct 45.1 (34.0-46.0) % MCV 98.1 (80.0-100.0) fL MCH 30.2 (25.0-35.0) pg MCHC 30.8 L (31.0-37.0) g/dL RDW 14.4 (11.5-15.5) % Plt Count 267 (150-450) k/uL MPV 7.1 Neutrophils % 92 % Lymphocytes % 3 % Monocytes % 4 % Eosinophils % 1 % Basophils % 0 % Neutrophils # 23.7 H (1.3-7.7) k/uL Lymphocytes # 0.7 L (1.0-4.8) k/uL Monocytes # 0.9 (0-1.0) k/uL Eosinophils # 0.1 (0-0.7) k/uL Basophils # 0.0 (0-0.2) k/uL Hypochromasia Marked PT 12.2 H (9.0-12.0) sec INR 1.2 H (<1.2) APTT 23.0 (22.0-30.0) sec Sample Site ABG pH (7.35-7.45) ABG pCO2 (35-45) mmHg ABG pO2 (83-108) mmHg ABG HCO3 (21-25) mmol/L ABG Total CO2 (19-24) mmol/L ABG O2 Saturation (94-97) % ABG Base Excess mmol/L Eric Test FiO2 % Sodium 138 (137-145) mmol/L Potassium 4.1 (3.5-5.1) mmol/L Chloride 90 L (98-107) mmol/L Carbon Dioxide 38 H (22-30) mmol/L Anion Gap 10 mmol/L BUN 32 H (7-17) mg/dL Creatinine 1.23 H (0.52-1.04) mg/dL Est GFR (CKD-EPI)AfAm 49 (>60 ml/min/1.73 sqM) Est GFR (CKD-EPI)NonAf 42 (>60 ml/min/1.73 sqM) Glucose 164 H (74-99) mg/dL Lactic Ac Sepsis Rflx Plasma Lactic Acid Derek (0.7-2.0) mmol/L Calcium 9.3 (8.4-10.2) mg/dL Total Bilirubin 1.9 H (0.2-1.3) mg/dL AST 21 (14-36) U/L ALT 13 (4-34) U/L Alkaline Phosphatase 81 (38-126) U/L Troponin I (0.000-0.034) ng/mL NT-Pro-B Natriuret Pep pg/mL Total Protein 6.5 (6.3-8.2) g/dL Albumin 3.6 (3.5-5.0) g/dL 04/14/23 04/14/23 04/14/23 Range/Units 13:05 13:05 13:05 WBC (3.8-10.6) k/uL RBC (3.80-5.40) m/uL Hgb (11.4-16.0) gm/dL Hct (34.0-46.0) % MCV (80.0-100.0) fL MCH (25.0-35.0) pg MCHC (31.0-37.0) g/dL RDW (11.5-15.5) % Plt Count (150-450) k/uL MPV Neutrophils % % Lymphocytes % % Monocytes % % Eosinophils % % Basophils % % Neutrophils # (1.3-7.7) k/uL Lymphocytes # (1.0-4.8) k/uL Monocytes # (0-1.0) k/uL Eosinophils # (0-0.7) k/uL Basophils # (0-0.2) k/uL Hypochromasia PT (9.0-12.0) sec INR (<1.2) APTT (22.0-30.0) sec Sample Site ABG pH (7.35-7.45) ABG pCO2 (35-45) mmHg ABG pO2 (83-108) mmHg ABG HCO3 (21-25) mmol/L ABG Total CO2 (19-24) mmol/L ABG O2 Saturation (94-97) % ABG Base Excess mmol/L Eric Test FiO2 % Sodium (137-145) mmol/L Potassium (3.5-5.1) mmol/L Chloride (98-107) mmol/L Carbon Dioxide (22-30) mmol/L Anion Gap mmol/L BUN (7-17) mg/dL Creatinine (0.52-1.04) mg/dL Est GFR (CKD-EPI)AfAm (>60 ml/min/1.73 sqM) Est GFR (CKD-EPI)NonAf (>60 ml/min/1.73 sqM) Glucose (74-99) mg/dL Lactic Ac Sepsis Rflx Plasma Lactic Acid Derek 2.1 H* (0.7-2.0) mmol/L Calcium (8.4-10.2) mg/dL Total Bilirubin (0.2-1.3) mg/dL AST (14-36) U/L ALT (4-34) U/L Alkaline Phosphatase (38-126) U/L Troponin I 0.013 (0.000-0.034) ng/mL NT-Pro-B Natriuret Pep 4060 pg/mL Total Protein (6.3-8.2) g/dL Albumin (3.5-5.0) g/dL 04/14/23 04/14/23 Range/Units 13:45 14:08 WBC (3.8-10.6) k/uL RBC (3.80-5.40) m/uL Hgb (11.4-16.0) gm/dL Hct (34.0-46.0) % MCV (80.0-100.0) fL MCH (25.0-35.0) pg MCHC (31.0-37.0) g/dL RDW (11.5-15.5) % Plt Count (150-450) k/uL MPV Neutrophils % % Lymphocytes % % Monocytes % % Eosinophils % % Basophils % % Neutrophils # (1.3-7.7) k/uL Lymphocytes # (1.0-4.8) k/uL Monocytes # (0-1.0) k/uL Eosinophils # (0-0.7) k/uL Basophils # (0-0.2) k/uL Hypochromasia PT (9.0-12.0) sec INR (<1.2) APTT (22.0-30.0) sec Sample Site r rad ABG pH 7.31 L (7.35-7.45) ABG pCO2 81 H* (35-45) mmHg ABG pO2 63 L (83-108) mmHg ABG HCO3 41 H* (21-25) mmol/L ABG Total CO2 44 H (19-24) mmol/L ABG O2 Saturation 92.3 L (94-97) % ABG Base Excess 14.8 mmol/L Eric Test Yes FiO2 40 % Sodium (137-145) mmol/L Potassium (3.5-5.1) mmol/L Chloride (98-107) mmol/L Carbon Dioxide (22-30) mmol/L Anion Gap mmol/L BUN (7-17) mg/dL Creatinine (0.52-1.04) mg/dL Est GFR (CKD-EPI)AfAm (>60 ml/min/1.73 sqM) Est GFR (CKD-EPI)NonAf (>60 ml/min/1.73 sqM) Glucose (74-99) mg/dL Lactic Ac Sepsis Rflx Y Plasma Lactic Acid Derek (0.7-2.0) mmol/L Calcium (8.4-10.2) mg/dL Total Bilirubin (0.2-1.3) mg/dL AST (14-36) U/L ALT (4-34) U/L Alkaline Phosphatase (38-126) U/L Troponin I (0.000-0.034) ng/mL NT-Pro-B Natriuret Pep pg/mL Total Protein (6.3-8.2) g/dL Albumin (3.5-5.0) g/dL Disposition Clinical Impression: CAP (community acquired pneumonia), BiPAP (biphasic positive airway pressure) dependence, Leukocytosis, Altered mental status, Acute respiratory failure, Chronic atrial fibrillation, Hypoxia Disposition: ADMITTED IP TO THIS HOSP Condition: Serious Is patient prescribed a controlled substance at d/c from ED?: No Time of Disposition: 14:52 Decision to Admit Reason: Admit from EC Decision Date: 04/14/23 Decision Time: 14:52
--- NOTE | 2023-04-14 13:18 | XR ---
EXAMINATION TYPE: XR chest 1V DATE OF EXAM: 04/14/2023 COMPARISON: 11/01/2022 HISTORY: 77-year-old female with shortness of breath TECHNIQUE: Single frontal view of the chest is obtained. FINDINGS: Heart remains mildly enlarged. New large focal right midlung opacity. Right basilar opacity as well t hat may partly represent a small effusion. Large patient body habitus resulting in underpenetration a t the lower lungs. Old healed fracture deformity of the surgical neck of the proximal right humerus.1 4 IMPRESSION: 1. Large area of new focal opacity right midlung. Consider focal pneumonia. Follow-up after treatment to ensure clearance and exclude underlying neoplasm. 2. Small right effusion with adjacent atelectasis and/or consolidation.
[2023-04-14 13:20] LABS: Basophils % (A) 0 %; Eosinophils # (A) 0.1 k/uL (0-0.7); Eosinophils % (A) 1 %; HCT 45.1 % (34.0-46.0); HGB 13.9 gm/dL (11.4-16.0); Hypochromasia Marked; Lymphocytes # (A) 0.7 k/uL (1.0-4.8); Lymphocytes % (A) 3 %; MCH 30.2 pg (25.0-35.0); MCHC 30.8 g/dL (31.0-37.0); MCV 98.1 fL (80.0-100.0); Mean Platelet Volume 7.1; Monocytes # (A) 0.9 k/uL (0-1.0); Monocytes % (A) 4 %; Neutrophils # (A) 23.7 k/uL (1.3-7.7); Neutrophils % (A) 92 %; Platelet Count 267 k/uL (150-450); RBC 4.59 m/uL (3.80-5.40); RDW 14.4 % (11.5-15.5); WBC 25.7 k/uL (3.8-10.6)
[2023-04-14] MEDS ORDERED: PNEUMONIA PROTOCOL UTILIZED 1 EACH MISC PO PRN (13:22)
[2023-04-14] MEDS ORDERED: AZITHROMYCIN 500 MG in SODIUM CHLORIDE 0.9% 250 ML IVPB STA (13:22)
[2023-04-14 13:28] LABS: ALT 13 U/L (4-34); AST 21 U/L (14-36); African American GFR (CKD) 49 (>60 ml/min/1.73 sqM); Albumin 3.6 g/dL (3.5-5.0); Alkaline Phosphatase 81 U/L (38-126); Blood Urea Nitrogen 32 mg/dL (7-17); Calcium 9.3 mg/dL (8.4-10.2); Chloride 90 mmol/L (98-107); Glucose 164 mg/dL (74-99); INR 1.2 (<1.2); Non-African American GFR(CKD) 42 (>60 ml/min/1.73 sqM); Potassium 4.1 mmol/L (3.5-5.1); Prothrombin Time 12.2 sec (9.0-12.0); Sodium 138 mmol/L (137-145); Total Bilirubin 1.9 mg/dL (0.2-1.3); Total Protein 6.5 g/dL (6.3-8.2)
[2023-04-14 13:37] LABS: Anion Gap 10 mmol/L
[2023-04-14 13:44] LABS: Carbon Dioxide 38 mmol/L (22-30)
[2023-04-14 14:11] LABS: ABG Base Excess 14.8 mmol/L; ABG Oxygen Saturation 92.3 % (94-97); ABG PH 7.31 (7.35-7.45); ABG PO2 63 mmHg (83-108); ABG TCO2 44 mmol/L (19-24); Allen Test Performed? Yes
[2023-04-14 14:13] LABS: ABG HCO3 41 mmol/L (21-25); ABG PCO2 81 mmHg (35-45)
[2023-04-14] MEDS ORDERED: NALOXONE 0.4 MG/ML 1 ML VIAL IV PRN (14:52)
[2023-04-14] MEDS ORDERED: ACETAMINOPHEN TAB 325 MG TAB PO PRN (14:52)
[2023-04-14] MEDS ORDERED: guaiFENesin-Coden 100-10MG/5ML 10 ML CUP PO PRN (15:06)
[2023-04-14] MEDS ORDERED: BENZONATATE 100 MG CAP PO PRN (15:06)
[2023-04-14] MEDS: IPRATROPIUM-ALBUTEROL 3 ML NEB INHALATION PRN ×2 (16:27→19:51)
[2023-04-14] MEDS: methylPREDNISolone SOD SUCCI 125 MG/2 ML VIAL IV SCH ×2 (17:42→23:50)
[2023-04-14] MEDS: SYMBICORT 80-4.5 MCG INHALER INHALATION SCH (19:51)
[2023-04-14 21:48] LABS: ABG Base Excess 14.7 mmol/L; ABG PH 7.32 (7.35-7.45); ABG PO2 105 mmHg (83-108); ABG TCO2 43 mmol/L (19-24); Allen Test Performed? Yes
[2023-04-14 21:53] LABS: ABG PCO2 80 mmHg (35-45)
[2023-04-14 21:54] LABS: ABG HCO3 41 mmol/L (21-25)
[2023-04-14] MEDS: APIXABAN 5 MG TAB PO SCH (22:03)
--- NOTE | 2023-04-14 22:32 | P.EN ---
A- team: Indication: Altered mental status Arrived on Scene to find: Patient on BiPAP, conversant Vital signs reviewed: Temperature 98.0F, BP 127/65, SpO2 97%, respiratory rate 24 Patient seen and examined at bedside. Patient reports that her breathing has improved. She denied any additional complaints at the time of interview. Vital signs were reviewed and were IPAP 12, EPAP 6, FiO2 60%, with respiratory rate 8. Discussed the case in detail with the patient's RN at the bedside. She reported the patient had become completely unresponsive to sternal rub, at which time she decided to activate the a team. The patient's mentation gradually improved with rigorous tactile stimuli. The patient is admitted for an acute hypoxic and hypercapnic respiratory failure in setting of an acute COPD exacerbation. The patient reports that she has had prior episodes of bradypnea with worsening hypercapnic failure due to excessive oxygen supplementation. General: [non toxic], [no distress], [appears at stated age] Derm: [warm], [dry] Head: [atraumatic], [normocephalic], [symmetric] Eyes: [EOMI], [no lid lag], [anicteric sclera] Mouth: [no lip lesion], [mucus membranes moist] Cardiovascular: [S1S2 reg], [no murmur], [positive posterior tibial pulse bilateral], Lungs: Somewhat poor air entry bilaterally with mild expiratory wheezing appreciated, [no rhonchi, no rales] , [no accessory muscle use] Abdominal: [soft], [ nontender to palpation], [no guarding], [no appreciable organomegaly] Ext: [no gross muscle atrophy], [no edema], [no contractures] Neuro: [no focal neuro deficits] Psych: [Alert], [oriented], [appropriate affect] Assessment: Altered mental status suspect secondary to acute hypercapnic respiratory failure in setting of bradypnea from excessive oxygen supplementation Plan: The patient's BiPAP settings were changed with IPAP 16, EPAP 6, rate 12, FiO2 decreased to 50% with RT notified to titrate to SpO2 greater than 88%. Obtain repeat ABGs. Continue the patient's COPD management including Solu-Medrol and DuoNeb's Notified: Primary team was notified by the patient's RN A Total of 35 minutes of critical care time was spent on the complex care of this patient.
[2023-04-15] MEDS: IPRATROPIUM-ALBUTEROL 3 ML NEB INHALATION SCH ×6 (00:09→19:41)
[2023-04-15] MEDS: methylPREDNISolone SOD SUCCI 125 MG/2 ML VIAL IV SCH ×4 (05:39→23:17)
[2023-04-15 07:18] LABS: Basophils % (A) 0 %; Eosinophils # (A) 0.1 k/uL (0-0.7); Eosinophils % (A) 0 %; HCT 41.4 % (34.0-46.0); HGB 12.6 gm/dL (11.4-16.0); Hypochromasia Marked; Lymphocytes # (A) 0.5 k/uL (1.0-4.8); Lymphocytes % (A) 3 %; MCHC 30.5 g/dL (31.0-37.0); MCV 98.4 fL (80.0-100.0); Mean Platelet Volume 7.7; Monocytes # (A) 0.2 k/uL (0-1.0); Monocytes % (A) 2 %; Neutrophils # (A) 15.3 k/uL (1.3-7.7); Neutrophils % (A) 95 %; Platelet Count 205 k/uL (150-450); RDW 14.4 % (11.5-15.5); WBC 16.2 k/uL (3.8-10.6)
[2023-04-15 07:37] LABS: African American GFR (CKD) 38 (>60 ml/min/1.73 sqM); Blood Urea Nitrogen 46 mg/dL (7-17); Calcium 9.2 mg/dL (8.4-10.2); Chloride 92 mmol/L (98-107); Glucose 139 mg/dL (74-99); Non-African American GFR(CKD) 33 (>60 ml/min/1.73 sqM); Sodium 136 mmol/L (137-145)
[2023-04-15 07:44] LABS: Anion Gap 8 mmol/L
[2023-04-15 07:46] LABS: Carbon Dioxide 36 mmol/L (22-30); Potassium 4.8 mmol/L (3.5-5.1)
[2023-04-15] MEDS ORDERED: NON FORMULARY DRUG (Fluticasone/Umeclidin/Vilanter [Trelegy Ellipta 100-62.5-25] 1 EACH Bl INHALATION SCH (08:00)
[2023-04-15] MEDS: SYMBICORT 80-4.5 MCG INHALER INHALATION SCH (08:09)
[2023-04-15] MEDS ORDERED: FUROSEMIDE 20 MG TAB PO SCH (09:00)
[2023-04-15] MEDS: AZITHROMYCIN 500 MG TAB PO SCH (09:54)
[2023-04-15] MEDS: APIXABAN 5 MG TAB PO SCH ×2 (09:55→19:33)
[2023-04-15] MEDS: LOSARTAN-HCTZ 50-12.5 MG 1 EACH TAB PO SCH (09:57)
[2023-04-15] MEDS: POTASSIUM CHLORIDE ER 20 MEQ TAB.ER PO SCH (09:58)
--- NOTE | 2023-04-15 11:26 | CT ---
EXAMINATION TYPE: CT chest wo con DATE OF EXAM: 04/15/2023 COMPARISON: 07/14/2019 HISTORY: 77-year-old female with lung mass, infiltrate, lung nodule TECHNIQUE: Contiguous axial scanning of the chest without IV contrast. Coronal and sagittal reconstru ctions performed. CT DLP: 615.5 mGycm Automated exposure control for dose reduction was used. FINDINGS: Possible underlying 1.9 cm right thyroid isthmic nodule versus 1.7 cm, previously. Thyroid ultrasound can further characterize and evaluate. Heart is mildly enlarged without pericardial effusion. 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 Large caliber to the main right and left pulmonary arteries up to 3.1 cm. Unchanged prominent but nonenlarged 8 mm lower left paratracheal node. A subcarinal node is borderlin e at 1.2 cm, larger from prior. There is extensive right perihilar consolidation extending along the bronchovascular bundles into the right upper lung and also down into the right lower lung where there is a trace effusion and additio nal patchy opacity, septal lines, and groundglass density. A few bands of atelectasis left mid and lower lung. Mild groundglass changes noted in the upper lungs . Moderate emphysematous change. Right upper lobe not well seen. Query any prior surgery. A couple mural based airway nodules, one along the left posterolateral wall of the mid to lower trach ea measuring 7 mm and one along the posterior wall of the proximal right mainstem measuring 1.0 cm. P ossible clumped mucoid debris. There is an 8 mm nodule at the left upper lobe, axial image 12 and a left lower lobe nodule measuring 7 mm, axial 29. Focal opacity along the subpleural region medial right base measuring up to 2.1 cm. Unclear if this r epresents some focal scarring or an abnormality. Lap band device noted. Cholecystectomy clips. Left-sided colonic diverticulosis. Bones: Mild degenerative disc disease lower thoracic spine. IMPRESSION: 1. COPD WITH MODERATE EMPHYSEMA. QUERY PRIOR SURGERY THE RIGHT UPPER LOBE IS NOT WELL SEEN. PULMON HUSSEIN HYPERTENSION AND MILD CARDIOMEGALY. 2. EXTENSIVE CONSOLIDATION AT THE RIGHT HILUM EXTENDING CENTRALLY into the right upper and right lowe r lung, spanning nearly 10 cm. Combination of a hilar mass with postobstructive changes versus extens den pneumonia are in the differential. If patient fails to respond to medical therapy, recommend furt her bronchoscopic and possible PET assessment. 3. Some additional groundglass and patchy infiltrates at the right lower lobe are suggestive of pneum onia or aspiration. Trace right pleural effusion. 4. A couple left-sided pulmonary nodules measuring up to 8 mm, not seen previously. Additional medial right basilar subpleural opacity measuring 2.1 cm. Unclear if this represents scarring or neoplastic process. Appropriate follow-up advised. 5. Bronchoscopy can also further evaluate a couple of nodules within the airway measuring up to 1 cm.
--- NOTE | 2023-04-15 15:29 | P.CNPUL ---
History of Present Illness Consult date: 04/15/23 Requesting physician: Adrienne Larios Reason for consult: COPD, pneumonia Chief complaint: Shortness of breath History of present illness: This is a 77-year-old female, familiar to my service, however I haven't seen this patient myself for her severe underlying COPD not seen by me since 12/28/2019, however the patient has been seen by Dr. Bourne a few times in the last few years, and her labs visit to our office was 02/02/2022. Patient was placed on BiPAP for chronic hypercapnic respiratory failure, and has been on multiple bronchodilators for her severe COPD. Patient had a PFT over 3 years ago, and her FEV1 was supposedly around 37% at the time. Has been maintained on noninvasive positive pressure ventilation with BiPAP 12/5 for quite some time. In addition to her COPD, patient is known to have history of chronic atrial fibrillation, on eliquis, patient uses oxygen as needed, patient presented to the ER with a few days' history of increased shortness of breath, productive cough with blood-tinged sputum, chest x-ray showed a masslike consolidation in the right perihilar area involving mostly the right midlung and right upper lobe. Patient required BiPAP with IPAP of 16 and EPAP of 6, and 40% FiO2. I saw the patient in the ER on consultation, recommended a CT of the chest, recommended the patient remains on antibiotics, bronchodilators, steroids, and I explained to the patient that the findings on the chest x-ray and CT of the chest are pointing to pneumonia, however the possibility of malignancy is being considered. I even touch bases with the patient regarding CODE STATUS, and the patient wishes DO NOT RESUSCITATE CODE STATUS CBC showed leukocytosis with WC count of 16.2 hemoglobin 12.6 ABG showed a pO2 of 105 pCO2 80 pH of 7.3 to this is basically consistent with chronic hypercapnia and chronic metabolic compensation for chronic respiratory acidosis basic metabolic profile is normal bicarb is 36 BUN is 46 creatinine 1.52. Her influenza and her COVID-19 sc reening as well as RSV screening is negative. Urine Legionella antigen is negative patient will be admitted, and we will continue to follow Review of Systems Constitutional: Weakness, fatigue, no weight loss. HEENT: Negative Pulmonary: As noted in HPI Cardiac: Negative patient is known to have history of chronic atrial fibrillation GI: Negative Genitourinary: Negative Musculoskeletal: Negative Hematologic: No clotting bleeding or bruising Neurologic: Negative Psychiatric: Negative Skin: Negative Past Medical History Past Medical History: Atrial Fibrillation, COPD, Hypertension Additional Past Medical History / Comment(s): COPD, hypertension, secondary pulmonary hypertension, chronic hypoxic respiratory failure, chronic atrial fibrillation, hyperlipidemia, obstructive sleep apnea History of Any Multi-Drug Resistant Organisms: None Reported Additional Past Surgical History / Comment(s): Right lung lung lobectomy, hernia repair and the patient has a large anterior abdominal wall incision, hysterectomy, knee surgery, cholecystectomy Past Anesthesia/Blood Transfusion Reactions: No Reported Reaction Past Psychological History: No Psychological Hx Reported Smoking Status: Never smoker Past Alcohol Use History: None Reported Past Drug Use History: None Reported - Past Family History Mother Family Medical History: Cancer Father Family Medical History: Coronary Artery Disease (CAD) Medications and Allergies Home Medications Medication Instructions Recorded Confirmed Type Apixaban [Eliquis] 5 mg PO BID 07/13/19 04/14/23 History Albuterol Nebulized [Ventolin 2.5 mg INHALATION RT-Q3H PRN 07/26/20 04/14/23 History Nebulized] Ipratropium-Albuterol Nebulize 3 ml INHALATION RT-QID 12/08/21 04/14/23 History [Duoneb 0.5 mg-3 mg/3 ml Soln] Losartan-Hctz 50-12.5 mg [Hyzaar 1 tab PO DAILY 11/01/22 04/14/23 History 50-12.5] Fluticasone/Umeclidin/Vilanter 1 puff INHALATION RT-DAILY 04/14/23 04/14/23 History [Trelegy Ellipta 100-62.5-25] Furosemide [Lasix] 20 mg PO DAILY 04/14/23 04/14/23 History Potassium Chloride ER [K-Dur 20] 20 meq PO DAILY 04/14/23 04/14/23 History Allergies Allergy/AdvReac Type Severity Reaction Status Date / Time No Known Allergies Allergy Verified 04/14/23 14:13 Physical Exam Vitals: Vital Signs Temp Pulse Pulse Resp BP BP Pulse Ox 04/15/23 14:00 12 04/15/23 12:31 98.2 F 84 12 115/65 97 04/15/23 12:09 80 15 04/15/23 12:00 68 15 105/54 95 04/15/23 11:59 77 15 04/15/23 11:54 04/15/23 11:15 98.2 F 83 21 117/71 95 04/15/23 08:36 97.1 F L 73 16 119/50 87 L 04/15/23 08:23 68 12 04/15/23 08:09 71 12 85 L 04/15/23 08:00 97.8 F 71 24 119/50 91 L 04/15/23 05:23 68 04/15/23 05:16 78 04/15/23 04:17 67 26 H 104/47 89 L 04/15/23 02:40 75 28 H 121/74 90 L 04/15/23 00:24 04/15/23 00:23 78 04/15/23 00:09 85 20 04/14/23 23:00 85 28 H 107/45 88 L 04/14/23 22:41 92 30 H 103/56 90 L 04/14/23 21:56 04/14/23 20:33 04/14/23 20:23 82 32 H 125/41 88 L 04/14/23 20:09 87 04/14/23 19:52 78 27 H 04/14/23 19:38 67 26 H 132/56 90 L 04/14/23 17:50 97.6 F 87 118/42 90 L 04/14/23 16:36 81 22 04/14/23 16:27 89 22 04/14/23 16:24 91 L FiO2 04/15/23 14:00 04/15/23 12:31 40 04/15/23 12:09 04/15/23 12:00 04/15/23 11:59 04/15/23 11:54 40 04/15/23 11:15 04/15/23 08:36 04/15/23 08:23 04/15/23 08:09 40 04/15/23 08:00 04/15/23 05:23 04/15/23 05:16 40 04/15/23 04:17 04/15/23 02:40 04/15/23 00:24 40 04/15/23 00:23 04/15/23 00:09 50 04/14/23 23:00 04/14/23 22:41 04/14/23 21:56 50 04/14/23 20:33 60 04/14/23 20:23 04/14/23 20:09 04/14/23 19:52 40 04/14/23 19:38 04/14/23 17:50 04/14/23 16:36 04/14/23 16:27 04/14/23 16:24 40 Intake and Output 04/15/23 04/15/23 04/15/23 06:59 14:59 22:59 Intake Total 360 Balance 360 Intake: Oral 360 GENERAL EXAM: Physical exam revealed 77-year-old female, obese, on BiPAP. HEAD: Normocephalic. EYES: Normal reaction of pupils, equal size. NOSE: Clear with pink turbinates. THROAT: No erythema or exudates. NECK: No masses, no JVD. CHEST: No chest wall deformity. LUNGS: Crackles and rhonchi noted bilaterally. CVS: S1 and S2 normal with no audible murmur, irregular rhythm. ABDOMEN: Obese, No hepatosplenomegaly, normal bowel sounds, no guarding or rigidity. SKIN: No rashes CENTRAL NERVOUS SYSTEM: Alert and oriented 3, no Focal deficits EXTREMITIES: Trace of bipedal edema. Results - Laboratory Findings CBC and BMP: 04/15/23 06:43 04/15/23 06:43 ABG ABG pH 7.32 (7.35-7.45) L 04/14/23 21:42 ABG pCO2 80 mmHg (35-45) H* 04/14/23 21:42 ABG pO2 105 mmHg (83-108) 04/14/23 21:42 ABG O2 Saturation 98.0 % (94-97) H 04/14/23 21:42 PT/INR, D-dimer PT 12.2 sec (9.0-12.0) H 04/14/23 13:05 INR 1.2 (<1.2) H 04/14/23 13:05 Abnormal lab findings: Abnormal Labs 04/14/23 04/14/23 04/14/23 13:05 13:05 13:05 WBC 25.7 H MCHC 30.8 L Neutrophils # 23.7 H Lymphocytes # 0.7 L PT 12.2 H INR 1.2 H ABG pH ABG pCO2 ABG pO2 ABG HCO3 ABG Total CO2 ABG O2 Saturation Sodium Chloride 90 L Carbon Dioxide 38 H BUN 32 H Creatinine 1.23 H Glucose 164 H Plasma Lactic Acid Derek Total Bilirubin 1.9 H 04/14/23 04/14/23 04/14/23 13:05 14:08 21:42 WBC MCHC Neutrophils # Lymphocytes # PT INR ABG pH 7.31 L 7.32 L ABG pCO2 81 H* 80 H* ABG pO2 63 L ABG HCO3 41 H* 41 H* ABG Total CO2 44 H 43 H ABG O2 Saturation 92.3 L 98.0 H Sodium Chloride Carbon Dioxide BUN Creatinine Glucose Plasma Lactic Acid Derek 2.1 H* Total Bilirubin 04/15/23 04/15/23 06:43 06:43 WBC 16.2 H MCHC 30.5 L Neutrophils # 15.3 H Lymphocytes # 0.5 L PT INR ABG pH ABG pCO2 ABG pO2 ABG HCO3 ABG Total CO2 ABG O2 Saturation Sodium 136 L Chloride 92 L Carbon Dioxide 36 H BUN 46 H Creatinine 1.52 H Glucose 139 H Plasma Lactic Acid Derek Total Bilirubin - Diagnostic Findings CT scan - chest: image reviewed (As noted in HPI, masslike consolidation in the right lung, suspicious for pneumonia, possible malignancy.) Assessment and Plan Assessment: Impression: Acute on chronic hypoxic and hypercapnic respiratory failure, secondary to community-acquired pneumonia and acute exacerbation of COPD Severe COPD Chronic hypoxic respiratory failure Chronic atrial fibrillation Benign essential hypertension Dyslipidemia Chronic cor pulmonale Recommendation: Continue oxygen and titrate accordingly Continue BiPAP, 16/6/40% titrate FiO2 maintaining O2 saturation to wean 89 up to 92% Continue antibiotics Continue bronchodilators and steroids Continue anticoagulation therapy/eliquis Resume home meds Check pro calcitonin level Admit patient to a regular medical floor DO NOT RESUSCITATE CODE STATUS based on her own wishes. May have to consider bronchoscopy on this patient however she is definitely high risk for intubation mechanical ventilation Patient was seen in the ER, and discussed the findings of the chest x-ray and CT of the chest with the patient. We will continue to follow Time with Patient: Greater than 30
--- NOTE | 2023-04-15 16:45 | P.HPIM ---
History of Present Illness H&P Date: 04/15/23 Chief Complaint: Shortness of breath 77-year-old female with past medical history of A. fib on Eliquis, COPD who wears 2 L home O2 and CPAP at night, CHF who presents to the emergency department with significant respiratory failure. States that she has been coughing for the past couple of days and has had some bloody sputum. She has not been wearing her CPAP. She has been wearing her 2 L of oxygen however remained significantly short of breath. She went to Dr. Molina's office today. When she arrived she was obtunded. Dr. Molina staff had to pull the patient from the vehicle. They checked a pulse ox and it was 36%. She was placed on 5 L of oxygen and EMS was called. They did bag the patient. She became more responsive and they placed her on CPAP. She denies chest pain. No nausea or vomiting. has been sick with similar symptoms. No fevers. No w orsening lower extremity swelling. Has been taking all of her medications as directed. No other alleviating, precipitating or modifying factors Patient was placed on BiPAP. He continues to deteriorate Patient became more lethargic and confused; stat ABGs were completed which revealed hypercapnia; patient's BiPAP settings were changed to IPAP 12, EPAP 6 and FiO2 60% Patient is admitted for further treatment of acute hypoxic/hypercapnic respiratory failure Review of Systems REVIEW OF SYSTEMS: CONSTITUTIONAL: No fever, no malaise, no fatigue. HEENT: No recent visual problems or hearing problems. Denied any sore throat. CARDIOVASCULAR: No chest pain, orthopnea, PND, no palpitations, no syncope. PULMONARY: No shortness of breath, no cough, no hemoptysis. GASTROINTESTINAL: No diarrhea, no nausea, no vomiting, no abdominal pain. NEUROLOGICAL: No headaches, no weakness, no numbness. HEMATOLOGICAL: Denies any bleeding or petechiae. GENITOURINARY: Denies any burning micturition, frequency, or urgency. MUSCULOSKELETAL/RHEUMATOLOGICAL: Denies any joint pain, swelling, or any muscle pain. ENDOCRINE: Denies any polyuria or polydipsia. The rest of the 14-point review of systems is negative. Past Medical History Past Medical History: Atrial Fibrillation, COPD, Hypertension Additional Past Medical History / Comment(s): COPD, hypertension, secondary pulm onary hypertension, chronic hypoxic respiratory failure, chronic atrial fibrillation, hyperlipidemia, obstructive sleep apnea History of Any Multi-Drug Resistant Organisms: None Reported Additional Past Surgical History / Comment(s): Right lung lung lobectomy, hernia repair and the patient has a large anterior abdominal wall incision, hysterectomy, knee surgery, cholecystectomy Past Anesthesia/Blood Transfusion Reactions: No Reported Reaction Past Psychological History: No Psychological Hx Reported Smoking Status: Never smoker Past Alcohol Use History: None Reported Past Drug Use History: None Reported - Past Family History Mother Family Medical History: Cancer Father Family Medical History: Coronary Artery Disease (CAD) Medications and Allergies Home Medications Medication Instructions Recorded Confirmed Type Apixaban [Eliquis] 5 mg PO BID 07/13/19 04/14/23 History Albuterol Nebulized [Ventolin 2.5 mg INHALATION RT-Q3H PRN 07/26/20 04/14/23 History Nebulized] Ipratropium-Albuterol Nebulize 3 ml INHALATION RT-QID 12/08/21 04/14/23 History [Duoneb 0.5 mg-3 mg/3 ml Soln] Losartan-Hctz 50-12.5 mg [Hyzaar 1 tab PO DAILY 11/01/22 04/14/23 History 50-12.5] Fluticasone/Umeclidin/Vilanter 1 puff INHALATION RT-DAILY 04/14/23 04/14/23 History [Trelegy Ellipta 100-62.5-25] Furosemide [Lasix] 20 mg PO DAILY 04/14/23 04/14/23 History Potassium Chloride ER [K-Dur 20] 20 meq PO DAILY 04/14/23 04/14/23 History Allergies Allergy/AdvReac Type Severity Reaction Status Date / Time No Known Allergies Allergy Verified 04/14/23 14:13 Physical Exam Vitals: Vital Signs Temp Pulse Resp BP Pulse Ox FiO2 04/15/23 08:36 97.1 F L 73 16 119/50 87 L 04/15/23 08:23 68 12 04/15/23 08:09 71 12 85 L 40 04/15/23 08:00 97.8 F 71 24 119/50 91 L 04/15/23 05:23 68 04/15/23 05:16 78 40 04/15/23 04:17 67 26 H 104/47 89 L 04/15/23 02:40 75 28 H 121/74 90 L 04/15/23 00:24 40 04/15/23 00:23 78 04/15/23 00:09 85 20 50 04/14/23 23:00 85 28 H 107/45 88 L 04/14/23 22:41 92 30 H 103/56 90 L 04/14/23 21:56 50 04/14/23 20:33 60 04/14/23 20:23 82 32 H 125/41 88 L 04/14/23 20:09 87 04/14/23 19:52 78 27 H 40 04/14/23 19:38 67 26 H 132/56 90 L 04/14/23 17:50 97.6 F 87 118/42 90 L 04/14/23 16:36 81 22 04/14/23 16:27 89 22 04/14/23 16:24 91 L 40 04/14/23 12:54 98 30 H 108/42 91 L 04/14/23 12:52 40 04/14/23 12:50 98.2 F 99 30 H 92 L PHYSICAL EXAMINATION: GENERAL: The patient is alert and oriented x3, not in any acute distress. Well developed, well nourished. HEENT: Pupils are round and equally reacting to light. EOMI. No scleral icterus. No conjunctival pallor. Normocephalic, atraumatic. No pharyngeal erythema. No thyromegaly. CARDIOVASCULAR: S1 and S2 present. No murmurs, rubs, or gallops. PULMONARY: Chest is clear to auscultation, no wheezing or crackles. ABDOMEN: Soft, nontender, nondistended, normoactive bowel sounds. No palpable organomegaly. MUSCULOSKELETAL: No joint swelling or deformity. EXTREMITIES: No cyanosis, clubbing, or pedal edema. NEUROLOGICAL: Gross neurological examination did not reveal any focal deficits. SKIN: No rashes. Results CBC & Chem 7: 04/15/23 06:43 04/15/23 06:43 Labs: Abnormal Lab Results - Last 24 Hours (Table) 04/14/23 04/14/23 04/14/23 Range/Units 13:05 13:05 13:05 WBC 25.7 H (3.8-10.6) k/uL MCHC 30.8 L (31.0-37.0) g/dL Neutrophils # 23.7 H (1.3-7.7) k/uL Lymphocytes # 0.7 L (1.0-4.8) k/uL PT 12.2 H (9.0-12.0) sec INR 1.2 H (<1.2) ABG pH (7.35-7.45) ABG pCO2 (35-45) mmHg ABG pO2 (83-108) mmHg ABG HCO3 (21-25) mmol/L ABG Total CO2 (19-24) mmol/L ABG O2 Saturation (94-97) % Sodium (137-145) mmol/L Chloride 90 L (98-107) mmol/L Carbon Dioxide 38 H (22-30) mmol/L BUN 32 H (7-17) mg/dL Creatinine 1.23 H (0.52-1.04) mg/dL Glucose 164 H (74-99) mg/dL Plasma Lactic Acid Derek (0.7-2.0) mmol/L Total Bilirubin 1.9 H (0.2-1.3) mg/dL 04/14/23 04/14/23 04/14/23 Range/Units 13:05 14:08 21:42 WBC (3.8-10.6) k/uL MCHC (31.0-37.0) g/dL Neutrophils # (1.3-7.7) k/uL Lymphocytes # (1.0-4.8) k/uL PT (9.0-12.0) sec INR (<1.2) ABG pH 7.31 L 7.32 L (7.35-7.45) ABG pCO2 81 H* 80 H* (35-45) mmHg ABG pO2 63 L (83-108) mmHg ABG HCO3 41 H* 41 H* (21-25) mmol/L ABG Total CO2 44 H 43 H (19-24) mmol/L ABG O2 Saturation 92.3 L 98.0 H (94-97) % Sodium (137-145) mmol/L Chloride (98-107) mmol/L Carbon Dioxide (22-30) mmol/L BUN (7-17) mg/dL Creatinine (0.52-1.04) mg/dL Glucose (74-99) mg/dL Plasma Lactic Acid Derek 2.1 H* (0.7-2.0) mmol/L Total Bilirubin (0.2-1.3) mg/dL 04/15/23 04/15/23 Range/Units 06:43 06:43 WBC 16.2 H (3.8-10.6) k/uL MCHC 30.5 L (31.0-37.0) g/dL Neutrophils # 15.3 H (1.3-7.7) k/uL Lymphocytes # 0.5 L (1.0-4.8) k/uL PT (9.0-12.0) sec INR (<1.2) ABG pH (7.35-7.45) ABG pCO2 (35-45) mmHg ABG pO2 (83-108) mmHg ABG HCO3 (21-25) mmol/L ABG Total CO2 (19-24) mmol/L ABG O2 Saturation (94-97) % Sodium 136 L (137-145) mmol/L Chloride 92 L (98-107) mmol/L Carbon Dioxide 36 H (22-30) mmol/L BUN 46 H (7-17) mg/dL Creatinine 1.52 H (0.52-1.04) mg/dL Glucose 139 H (74-99) mg/dL Plasma Lactic Acid Derek (0.7-2.0) mmol/L Total Bilirubin (0.2-1.3) mg/dL Assessment and Plan Assessment: 1. Acute on chronic hypoxic and hypercapnic respiratory failure; related to community-acquired pneumonia and COPD exacerbation Continue oxygen and titrate accordingly Continue BiPAP, 16/6/40% titrate FiO2 maintaining O2 saturation to wean 89 up to 92% 2. Acute exacerbation COPD; severe COPD Continue antibiotics Continue bronchodilators and steroids 3. Community-acquired pneumonia Patient has been placed on IV antibiotics in form of Rocephin and azithromycin - We will monitor CBC, CMP and pro-calcitonin - Pulmonary considering possible need for bronchoscopy however patient is very high risk for intubation 4. Chronic atrial fibrillation; patient is anticoagulated with [place] 5. Hypertension; continue home dose of losartanhydrochlorothiazide 5012 0.5 mg daily 6. Hyperlipidemia; currently not on any statin therapy DVT prophylaxis; SCDs CODE STATUS; full code
[2023-04-15] MEDS: FUROSEMIDE 20 MG TAB PO SCH (17:01)
[2023-04-15] MEDS: BUDESONIDE 1 MG/2 ML NEBU INHALATION SCH (19:41)
[2023-04-15] MEDS: FORMOTEROL FUMARATE 20 MCG/2 ML NEBU INHALATION SCH (19:41)
[2023-04-16] MEDS: methylPREDNISolone SOD SUCCI 125 MG/2 ML VIAL IV SCH ×4 (05:53→23:50)
[2023-04-16] MEDS: IPRATROPIUM-ALBUTEROL 3 ML NEB INHALATION SCH ×4 (07:55→19:42)
[2023-04-16] MEDS: BUDESONIDE 1 MG/2 ML NEBU INHALATION SCH ×2 (07:55→19:42)
[2023-04-16] MEDS: FORMOTEROL FUMARATE 20 MCG/2 ML NEBU INHALATION SCH ×2 (07:55→19:42)
[2023-04-16] MEDS: POTASSIUM CHLORIDE ER 20 MEQ TAB.ER PO SCH (09:16)
[2023-04-16] MEDS: APIXABAN 5 MG TAB PO SCH ×2 (09:16→20:17)
[2023-04-16] MEDS: FUROSEMIDE 20 MG TAB PO SCH ×2 (09:16→16:45)
[2023-04-16] MEDS: AZITHROMYCIN 500 MG TAB PO SCH (09:16)
[2023-04-16] MEDS: LOSARTAN-HCTZ 50-12.5 MG 1 EACH TAB PO SCH (09:17)
[2023-04-16 09:40] LABS: Basophils % (A) 0 %; Eosinophils % (A) 0 %; HGB 12.7 gm/dL (11.4-16.0); Hypochromasia Marked; Lymphocytes # (A) 0.4 k/uL (1.0-4.8); Lymphocytes % (A) 3 %; MCH 29.2 pg (25.0-35.0); MCHC 29.4 g/dL (31.0-37.0); MCV 99.3 fL (80.0-100.0); Monocytes # (A) 0.3 k/uL (0-1.0); Monocytes % (A) 2 %; Neutrophils # (A) 11.6 k/uL (1.3-7.7); Neutrophils % (A) 95 %; Platelet Count 251 k/uL (150-450); RBC 4.33 m/uL (3.80-5.40); WBC 12.3 k/uL (3.8-10.6)
[2023-04-16 09:55] LABS: African American GFR (CKD) 44 (>60 ml/min/1.73 sqM); Blood Urea Nitrogen 66 mg/dL (7-17); Calcium 9.8 mg/dL (8.4-10.2); Chloride 88 mmol/L (98-107); Glucose 193 mg/dL (74-99); Non-African American GFR(CKD) 38 (>60 ml/min/1.73 sqM); Potassium 4.1 mmol/L (3.5-5.1); Sodium 137 mmol/L (137-145)
[2023-04-16 10:01] LABS: Anion Gap 11 mmol/L
[2023-04-16 10:02] LABS: Carbon Dioxide 38 mmol/L (22-30)
--- NOTE | 2023-04-16 13:00 | P.PN ---
Subjective Progress Note Date: 04/16/23 Principal diagnosis: Acute on chronic hypoxic and hypercapnic respiratory failure secondary to COPD exacerbation and extensive right-sided pneumonia, possible bronchogenic carcinom a. This is a 77-year-old female, familiar to my service, however I haven't seen this patient myself for her severe underlying COPD not seen by me since 12/28/2019, however the patient has been seen by Dr. Bourne a few times in the last few years, and her labs visit to our office was 02/02/2022. Patient was placed on BiPAP for chronic hypercapnic respiratory failure, and has been on multiple bronchodilators for her severe COPD. Patient had a PFT over 3 years ago, and her FEV1 was supposedly around 37% at the time. Has been maintained on noninvasive positive pressure ventilation with BiPAP 10/11 for quite some time. In addition to her COPD, patient is known to have history of chronic atrial fibrillation, on eliquis, patient uses oxygen as needed, patient presented to the ER with a few days' history of increased shortness of breath, productive cough with blood-tinged sputum, chest x-ray showed a masslike consolidation in the right perihilar area involving mostly the right midlung and right upper lobe. Patient required BiPAP with IPAP of 16 and EPAP of 6, and 40% FiO2. I saw the patient in the ER on consultation, recommended a CT of the chest, recommended the patient remains on antibiotics, bronchodilators, steroids, and I explained to the patient that the findings on the chest x-ray and CT of the chest are pointing to pneumonia, however the possibility of malignancy is being considered. I even touch bases with the patient regarding CODE STATUS, and the patient wishes DO NOT RESUSCITATE CODE STATUS CBC showed leukocytosis with WC count of 16.2 hemoglobin 12.6 ABG showed a pO2 of 105 pCO2 80 pH of 7.3 to this is basically consistent with chronic hypercapnia and chronic metabolic compensation for chronic respiratory acidosis basic metabolic profile is normal bicarb is 36 BUN is 46 creatinine 1.52. Her influenza and her COVID-19 screening as well as RSV screening is negative. Urine Legionella antigen is negative patient will be admitted, and we will continue to follow Reevaluated today on 04/16/2023, patient is feeling better, breathing a bit easier, she is now on nasal cannula at 2 L/m with O2 sats is 99% less cough and less wheezing less shortness of breath, patient has BiPAP at bedside, use the BiPAP at night mostly WBC count today is down to 12.3 hemoglobin is 12.7 and left bicep normal bicarb is 38, renal profile is better with BUN of 66 creatinine down to 1.34 from 1.52. Pro-calcitonin level is elevated at 1.60 urine Legionella antigen is negative. Objective - Vital Signs Vital signs: Vital Signs Temp 97.6 F 04/16/23 09:10 Pulse 79 04/16/23 11:20 Resp 18 04/16/23 11:20 BP 108/68 04/16/23 11:20 Pulse Ox 99 04/16/23 11:20 FiO2 40 04/16/23 04:00 Intake & Output 04/15/23 04/16/23 04/16/23 18:59 06:59 18:59 Intake Total 600 10 Output Total 450 Balance 600 -450 10 Intake: Oral 600 10 Output: Urine 450 Other: Voiding Method External Catheter External Catheter - Exam GENERAL EXAM: Physical exam revealed 77-year-old female, obese, on 2 L nasal cannula, not in distress. HEAD: Normocephalic. EYES: Normal reaction of pupils, equal size. NOSE: Clear with pink turbinates. THROAT: No erythema or exudates. NECK: No masses, no JVD. CHEST: No chest wall deformity. LUNGS: Diminished breath sounds at the bases no rhonchi and no wheezes CVS: S1 and S2 normal with no audible murmur, irregular rhythm. ABDOMEN: Obese, No hepatosplenomegaly, normal bowel sounds, no guarding or rigidity. SKIN: No rashes CENTRAL NERVOUS SYSTEM: Alert and oriented 3, no Focal deficits EXTREMITIES: Trace of bipedal edema. - Labs CBC & Chem 7: 04/16/23 08:18 04/16/23 08:18 Labs: Abnormal Lab Results - Last 24 Hours (Table) 04/15/23 04/16/23 04/16/23 Range/Units 06:43 08:18 08:18 WBC 12.3 H (3.8-10.6) k/uL MCHC 29.4 L (31.0-37.0) g/dL Neutrophils # 11.6 H (1.3-7.7) k/uL Lymphocytes # 0.4 L (1.0-4.8) k/uL Chloride 88 L (98-107) mmol/L Carbon Dioxide 38 H (22-30) mmol/L BUN 66 H (7-17) mg/dL Creatinine 1.34 H (0.52-1.04) mg/dL Glucose 193 H (74-99) mg/dL Procalcitonin 1.60 H (0.02-0.09) ng/mL Assessment and Plan Assessment: Impression: Acute on chronic hypoxic and hypercapnic respiratory failure, secondary to community-acquired pneumonia and acute exacerbation of COPD underlying bronc hogenic carcinoma is not entirely ruled out, patient will need to be monitored closely and follow up CT of the chest in few weeks. And follow-up chest x-ray on Tuesday. Severe COPD Chronic hypoxic respiratory failure Chronic atrial fibrillation Benign essential hypertension Dyslipidemia Chronic cor pulmonale Recommendation: Continue oxygen and titrate accordingly Continue BiPAP, as needed. Continue antibiotics Continue bronchodilators and steroids Continue anticoagulation therapy/eliquis Resume home meds Patient was made aware that bronchogenic carcinoma as a possibility, and eventually if no improvement she will need to have bronchoscopy and biopsy We will continue to follow Time with Patient: Less than 30
[2023-04-16 20:35] LABS: Glucose,Whole Blood 186 mg/dL (70-110)
[2023-04-16] MEDS ORDERED: DEXTROSE 50% SYRINGE 50 ML IVP PRN ×2 (21:21)
[2023-04-17 06:21] LABS: Glucose,Whole Blood 153 mg/dL (70-110)
[2023-04-17] MEDS: methylPREDNISolone SOD SUCCI 125 MG/2 ML VIAL IV SCH ×3 (06:21→16:37)
[2023-04-17] MEDS: INSULIN ASPART (NovoLOG) 100 UNIT/ML VIAL SQ SCH ×4 (06:24→20:58)
[2023-04-17] MEDS: FORMOTEROL FUMARATE 20 MCG/2 ML NEBU INHALATION SCH ×2 (07:49→21:54)
[2023-04-17] MEDS: IPRATROPIUM-ALBUTEROL 3 ML NEB INHALATION SCH ×4 (07:50→21:55)
[2023-04-17] MEDS: BUDESONIDE 1 MG/2 ML NEBU INHALATION SCH ×2 (07:50→21:54)
[2023-04-17] MEDS: POTASSIUM CHLORIDE ER 20 MEQ TAB.ER PO SCH (08:11)
[2023-04-17] MEDS: FUROSEMIDE 20 MG TAB PO SCH ×2 (08:11→16:37)
[2023-04-17] MEDS: LOSARTAN-HCTZ 50-12.5 MG 1 EACH TAB PO SCH (08:11)
[2023-04-17] MEDS: APIXABAN 5 MG TAB PO SCH ×2 (08:11→20:58)
[2023-04-17 11:30] LABS: Glucose,Whole Blood 149 mg/dL (70-110)
--- NOTE | 2023-04-17 11:32 | P.PN ---
Subjective Progress Note Date: 04/17/23 Principal diagnosis: Acute on chronic hypoxic and hypercapnic respiratory failure secondary to COPD exacerbation and extensive right-sided pneumonia, possible bronchogenic carcinom a. This is a 77-year-old female, familiar to my service, however I haven't seen this patient myself for her severe underlying COPD not seen by me since 12/28/2019, however the patient has been seen by Dr. Bourne a few times in the last few years, and her labs visit to our office was 02/02/2022. Patient was placed on BiPAP for chronic hypercapnic respiratory failure, and has been on multiple bronchodilators for her severe COPD. Patient had a PFT over 3 years ago, and her FEV1 was supposedly around 37% at the time. Has been maintained on noninvasive positive pressure ventilation with BiPAP 10/11 for quite some time. In addition to her COPD, patient is known to have history of chronic atrial fibrillation, on eliquis, patient uses oxygen as needed, patient presented to the ER with a few days' history of increased shortness of breath, productive cough with blood-tinged sputum, chest x-ray showed a masslike consolidation in the right perihilar area involving mostly the right midlung and right upper lobe. Patient required BiPAP with IPAP of 16 and EPAP of 6, and 40% FiO2. I saw the patient in the ER on consultation, recommended a CT of the chest, recommended the patient remains on antibiotics, bronchodilators, steroids, and I explained to the patient that the findings on the chest x-ray and CT of the chest are pointing to pneumonia, however the possibility of malignancy is being considered. I even touch bases with the patient regarding CODE STATUS, and the patient wishes DO NOT RESUSCITATE CODE STATUS CBC showed leukocytosis with WC count of 16.2 hemoglobin 12.6 ABG showed a pO2 of 105 pCO2 80 pH of 7.3 to this is basically consistent with chronic hypercapnia and chronic metabolic compensation for chronic respiratory acidosis basic metabolic profile is normal bicarb is 36 BUN is 46 creatinine 1.52. Her influenza and her COVID-19 screening as well as RSV screening is negative. Urine Legionella antigen is negative patient will be admitted, and we will continue to follow Reevaluated today on 04/16/2023, patient is feeling better, breathing a bit easier, she is now on nasal cannula at 2 L/m with O2 sats is 99% less cough and less wheezing less shortness of breath, patient has BiPAP at bedside, use the BiPAP at night mostly WBC count today is down to 12.3 hemoglobin is 12.7 and left bicep normal bicarb is 38, renal profile is better with BUN of 66 creatinine down to 1.34 from 1.52. Pro-calcitonin level is elevated at 1.60 urine Legionella antigen is negative. Reevaluated today on 04/17/2023, patient is doing well, feeling better, breathing easier, remains on antibiotics, bronchodilators, steroids, remains on oxygen, and she has BiPAP at bedside using it mostly at night. Clinically patient is feeling better, and I'm planning to have a repeat chest x-ray on this patient in a.m. Still concerned about the possibility of underlying malignancy on this pa tient, she does have a masslike consolidation in the right perihilar area Objective - Vital Signs Vital signs: Vital Signs Temp 98 F 04/17/23 08:15 Pulse 72 04/17/23 11:20 Resp 18 04/17/23 08:15 BP 123/76 04/17/23 08:15 Pulse Ox 96 04/17/23 08:15 FiO2 40 04/17/23 04:00 Intake & Output 04/16/23 04/17/23 04/17/23 18:59 06:59 18:59 Intake Total 250 180 Output Total 1125 750 Balance -875 -750 180 Intake: Oral 250 180 Output: Urine 1125 750 Other: Voiding Method External Catheter External Catheter External Catheter - Exam GENERAL EXAM: Physical exam revealed 77-year-old female, obese, on 2 L nasal cannula, not in distress. O2 saturations 96%. HEAD: Normocephalic. EYES: Normal reaction of pupils, equal size. NOSE: Clear with pink turbinates. THROAT: No erythema or exudates. NECK: No masses, no JVD. CHEST: No chest wall deformity. LUNGS: Diminished breath sounds at the bases no rhonchi and no wheezes CVS: S1 and S2 normal with no audible murmur, irregular rhythm. ABDOMEN: Obese, No hepatosplenomegaly, normal bowel sounds, no guarding or rigidity. SKIN: No rashes CENTRAL NERVOUS SYSTEM: Alert and oriented 3, no Focal deficits EXTREMITIES: Trace of bipedal edema. - Labs CBC & Chem 7: 04/16/23 08:18 04/16/23 08:18 Labs: Abnormal Lab Results - Last 24 Hours (Table) 04/15/23 04/16/23 04/17/23 Range/Units 06:43 20:34 06:19 POC Glucose (mg/dL) 186 H 153 H (70-110) mg/dL Procalcitonin 1.60 H (0.02-0.09) ng/mL Microbiology - Last 24 Hours (Table) 04/14/23 14:25 Blood Culture - Preliminary Blood 04/14/23 14:25 Blood Culture - Preliminary Blood Assessment and Plan Assessment: Impression: Acute on chronic hypoxic and hypercapnic respiratory failure, secondary to community-acquired pneumonia and acute exacerbation of COPD underlying bronchogenic carcinoma is definitely in the differential diagnosis. CT of the chest in few weeks. And follow-up chest x-ray on Tuesday. Severe COPD Chronic hypoxic respiratory failure Chronic atrial fibrillation Benign essential hypertension Dyslipidemia Chronic cor pulmonale Recommendation: Repeat chest x-ray in a.m. Continue oxygen and titrate accordingly Continue BiPAP, as needed. Continue antibiotics Continue bronchodilators and steroids Continue anticoagulation therapy/eliquis I am still concerned about the possibility of underlying bronchogenic carcinoma in this patient We will continue to follow Time with Patient: Less than 30
--- NOTE | 2023-04-17 13:43 | P.PN ---
Subjective Progress Note Date: 04/16/23 77-year-old female with past medical history of A. fib on Eliquis, COPD who wears 2 L home O2 and CPAP at night, CHF who presents to the emergency department with significant respiratory failure. States that she has been coughing for the past couple of days and has had some bloody sputum. She has not been wearing her CPAP. She has been wearing her 2 L of oxygen however remained significantly short of breath. She went to Dr. Molina's office today. When she arrived she was obtunded. Dr. Molina staff had to pull the patient from the vehicle. They checked a pulse ox and it was 36%. She was placed on 5 L of oxygen and EMS was called. They did bag the patient. She became more responsive and they placed her on CPAP. She denies chest pain. No nausea or vomiting. has been sick with similar symptoms. No fevers. No worsening lower extremity swelling. Has been taking all of her medications as directed. No other alleviating, precipitating or modifying factors Patient was placed on BiPAP. He continues to deteriorate Patient became more lethargic and confused; stat ABGs were completed which revealed hypercapnia; patient's BiPAP settings were changed to IPAP 12, EPAP 6 and FiO2 60% Patient is admitted for further treatment of acute hypoxic/hypercapnic respiratory failure Objective - Vital Signs Vital signs: Vital Signs Temp 97.6 F 04/16/23 09:10 Pulse 79 04/16/23 11:20 Resp 18 04/16/23 11:20 BP 108/68 04/16/23 11:20 Pulse Ox 99 04/16/23 11:20 FiO2 40 04/16/23 04:00 Intake & Output 04/15/23 04/16/23 04/16/23 18:59 06:59 18:59 Intake Total 600 10 Output Total 450 Balance 600 -450 10 Intake: Oral 600 10 Output: Urine 450 Other: Voiding Method External Catheter External Catheter - Exam GENERAL: The patient is alert and oriented x3, not in any acute distress. Well developed, well nourished. HEENT: Pupils are round and equally reacting to light. EOMI. No scleral icterus. No conjunctival pallor. Normocephalic, atraumatic. No pharyngeal erythema. No thyromegaly. CARDIOVASCULAR: S1 and S2 present. No murmurs, rubs, or gallops. PULMONARY: Chest is clear to auscultation, no wheezing or crackles. ABDOMEN: Soft, nontender, nondistended, normoactive bowel sounds. No palpable organomegaly. MUSCULOSKELETAL: No joint swelling or deformity. EXTREMITIES: No cyanosis, clubbing, or pedal edema. NEUROLOGICAL: Gross neurological examination did not reveal any focal deficits. SKIN: No rashes. - Labs CBC & Chem 7: 04/16/23 08:18 04/16/23 08:18 Labs: Abnormal Lab Results - Last 24 Hours (Table) 04/15/23 04/16/23 04/16/23 Range/Units 06:43 08:18 08:18 WBC 12.3 H (3.8-10.6) k/uL MCHC 29.4 L (31.0-37.0) g/dL Neutrophils # 11.6 H (1.3-7.7) k/uL Lymphocytes # 0.4 L (1.0-4.8) k/uL Chloride 88 L (98-107) mmol/L Carbon Dioxide 38 H (22-30) mmol/L BUN 66 H (7-17) mg/dL Creatinine 1.34 H (0.52-1.04) mg/dL Glucose 193 H (74-99) mg/dL Procalcitonin 1.60 H (0.02-0.09) ng/mL Assessment and Plan Assessment: 1. Acute on chronic hypoxic and hypercapnic respiratory failure; related to community-acquired pneumonia and COPD exacerbation Continue oxygen and titrate accordingly Continue BiPAP, 16/6/40% titrate FiO2 maintaining O2 saturation to wean 89 up to 92% 2. Acute exacerbation COPD; severe COPD Continue antibiotics Continue bronchodilators and steroids 3. Community-acquired pneumonia Patient has been placed on IV antibiotics in form of Rocephin and azithromycin - We will monitor CBC, CMP and pro-calcitonin - Pulmonary considering possible need for bronchoscopy however patient is very high risk for intubation 4. Chronic atrial fibrillation; patient is anticoagulated with [place] 5. Hypertension; continue home dose of losartanhydrochlorothiazide 5012 0.5 mg daily 6. Hyperlipidemia; currently not on any statin therapy DVT prophylaxis; SCDs CODE STATUS; full code
[2023-04-17 16:11] LABS: African American GFR (CKD) 54 (>60 ml/min/1.73 sqM); Blood Urea Nitrogen 65 mg/dL (7-17); Calcium 9.6 mg/dL (8.4-10.2); Chloride 87 mmol/L (98-107); Glucose 177 mg/dL (74-99); Non-African American GFR(CKD) 47 (>60 ml/min/1.73 sqM); Potassium 3.8 mmol/L (3.5-5.1); Sodium 135 mmol/L (137-145)
[2023-04-17 16:18] LABS: Anion Gap 10 mmol/L
[2023-04-17 16:19] LABS: Glucose,Whole Blood 186 mg/dL (70-110)
[2023-04-17 16:25] LABS: Carbon Dioxide 38 mmol/L (22-30)
[2023-04-17 20:29] LABS: Glucose,Whole Blood 200 mg/dL (70-110)
[2023-04-17] MEDS: ALPRAZolam 0.25 MG TAB PO PRN (20:58)
[2023-04-18] MEDS: methylPREDNISolone SOD SUCCI 125 MG/2 ML VIAL IV SCH ×5 (00:13→23:05)
[2023-04-18 06:41] LABS: Glucose,Whole Blood 140 mg/dL (70-110)
[2023-04-18] MEDS: INSULIN ASPART (NovoLOG) 100 UNIT/ML VIAL SQ SCH ×4 (06:44→21:13)
[2023-04-18] MEDS: ALPRAZolam 0.25 MG TAB PO PRN ×2 (06:46→23:05)
--- NOTE | 2023-04-18 07:50 | XR ---
EXAMINATION TYPE: XR chest 1V portable DATE OF EXAM: 04/18/2023 HISTORY: Shortness of breath. COMPARISON: 04/14/2023 TECHNIQUE: Single view of the chest is submitted. FINDINGS: Demonstrated are scattered senescent parenchymal change. Right suprahilar infiltrate persists although is much improved relative to the prior study. The heart is stable. Hilar and mediastinal structures are within normal limits. Degenerative changes are seen of the dorsal spine. IMPRESSION: 1. Significant interval improvement in right mid and right lower lung zone infiltrates with persiste nt right suprahilar infiltrate.
[2023-04-18] MEDS: IPRATROPIUM-ALBUTEROL 3 ML NEB INHALATION SCH ×4 (08:24→21:51)
[2023-04-18] MEDS: FORMOTEROL FUMARATE 20 MCG/2 ML NEBU INHALATION SCH ×2 (08:24→21:51)
[2023-04-18] MEDS: BUDESONIDE 1 MG/2 ML NEBU INHALATION SCH ×2 (08:24→21:51)
[2023-04-18 08:36] LABS: Basophils % (A) 0 %; Eosinophils % (A) 0 %; HCT 41.6 % (34.0-46.0); HGB 12.7 gm/dL (11.4-16.0); Hypochromasia Moderate; Lymphocytes # (A) 0.2 k/uL (1.0-4.8); Lymphocytes % (A) 4 %; MCH 29.6 pg (25.0-35.0); MCHC 30.6 g/dL (31.0-37.0); MCV 96.6 fL (80.0-100.0); Mean Platelet Volume 7.4; Monocytes # (A) 0.2 k/uL (0-1.0); Monocytes % (A) 3 %; Neutrophils # (A) 6.4 k/uL (1.3-7.7); Neutrophils % (A) 93 %; Platelet Count 248 k/uL (150-450); RBC 4.31 m/uL (3.80-5.40); RDW 13.9 % (11.5-15.5); WBC 6.9 k/uL (3.8-10.6)
[2023-04-18 08:54] LABS: Potassium 3.5 mmol/L (3.5-5.1)
[2023-04-18 08:55] LABS: African American GFR (CKD) 51 (>60 ml/min/1.73 sqM); Blood Urea Nitrogen 63 mg/dL (7-17); Calcium 9.5 mg/dL (8.4-10.2); Chloride 88 mmol/L (98-107); Glucose 237 mg/dL (74-99); Non-African American GFR(CKD) 44 (>60 ml/min/1.73 sqM); Sodium 138 mmol/L (137-145)
[2023-04-18 09:01] LABS: Anion Gap 7 mmol/L
[2023-04-18 09:16] LABS: Carbon Dioxide 43 mmol/L (22-30)
[2023-04-18] MEDS: LOSARTAN-HCTZ 50-12.5 MG 1 EACH TAB PO SCH (09:22)
[2023-04-18] MEDS: FUROSEMIDE 20 MG TAB PO SCH (09:22)
[2023-04-18] MEDS: POTASSIUM CHLORIDE ER 20 MEQ TAB.ER PO SCH (09:23)
[2023-04-18] MEDS: APIXABAN 5 MG TAB PO SCH ×2 (09:23→21:06)
[2023-04-18 11:29] LABS: Glucose,Whole Blood 217 mg/dL (70-110)
--- NOTE | 2023-04-18 11:54 | P.PN ---
Subjective Progress Note Date: 04/18/23 Principal diagnosis: Pneumonia. Acute on chronic hypoxic and hypercapnic respiratory failure secondary to COPD exacerbation and extensive right-sided pneumonia, possible bronchogenic carcinoma. This is a 77-year-old female, familiar to my service, however I haven't seen this patient myself for her severe underlying COPD not seen by me since 12/28/2019, however the patient has been seen by Dr. Bourne a few times in the last few years, and her labs visit to our office was 02/02/2022. Patient was placed on BiPAP for chronic hypercapnic respiratory failure, and has been on m ultiple bronchodilators for her severe COPD. Patient had a PFT over 3 years ago, and her FEV1 was supposedly around 37% at the time. Has been maintained on noninvasive positive pressure ventilation with BiPAP 10/11 for quite some time. In addition to her COPD, patient is known to have history of chronic atrial fibrillation, on eliquis, patient uses oxygen as needed, patient presented to the ER with a few days' history of increased shortness of breath, productive cough with blood-tinged sputum, chest x-ray showed a masslike consolidation in the right perihilar area involving mostly the right midlung and right upper lobe. Patient required BiPAP with IPAP of 16 and EPAP of 6, and 40% FiO2. I saw the patient in the ER on consultation, recommended a CT of the chest, recommended the patient remains on antibiotics, bronchodilators, steroids, and I explained to the patient that the findings on the chest x-ray and CT of the chest are pointing to pneumonia, however the possibility of malignancy is being considered. I even touch bases with the patient regarding CODE STATUS, and the patient wishes DO NOT RESUSCITATE CODE STATUS CBC showed leukocytosis with WC count of 16.2 hemoglobin 12.6 ABG showed a pO2 of 105 pCO2 80 pH of 7.3 to this is basically consistent with chronic hypercapnia and chronic metabolic compensation for chronic respiratory acidosis basic metabolic profile is normal bicarb is 36 BUN is 46 creatinine 1.52. Her influenza and her COVID-19 screening as well as RSV screening is negative. Urine Legionella antigen is negative patient will be admitted, and we will continue to follow Reevaluated today on 04/16/2023, patient is feeling better, breathing a bit easier, she is now on nasal cannula at 2 L/m with O2 sats is 99% less cough and less wheezing less shortness of breath, patient has BiPAP at bedside, use the BiPAP at night mostly WBC count today is down to 12.3 hemoglobin is 12.7 and left bicep normal bicarb is 38, renal profile is better with BUN of 66 c reatinine down to 1.34 from 1.52. Pro-calcitonin level is elevated at 1.60 urine Legionella antigen is negative. Reevaluated today on 04/17/2023, patient is doing well, feeling better, breathing easier, remains on antibiotics, bronchodilators, steroids, remains on oxygen, and she has BiPAP at bedside using it mostly at night. Clinically patient is feeling better, and I'm planning to have a repeat chest x-ray on this patient in a.m. Still concerned about the possibility of underlying malignancy on this patient, she does have a masslike consolidation in the right perihilar area Progress note dated 04/18/2023. The patient is seen today in room 353. Her chest x-ray, shows improvement. She is on 2 L nasal cannula. She's not receiving any IV fluids. For to Augmentin, 875 mg twice a day. We had given some consideration to bronchoscopy, with airway examination, and therapeutic lavage. Because the patient appears to be doing better, we can hold off for now. White count 6.9, hemoglobin 12.7, hematocrit 41.6, and platelet count was normal. Sodium 138, potassium 3.5, chlorides 88, CO2 43, BUN 63, and creatinine 1.18. Sputum and blood sampling is thus far negative. Objective - Vital Signs Vital signs: Vital Signs Temp 97.9 F 04/18/23 08:00 Pulse 86 04/18/23 08:48 Resp 20 04/18/23 08:00 BP 120/74 04/18/23 08:00 Pulse Ox 96 04/18/23 08:27 FiO2 50 04/18/23 04:59 Intake & Output 04/17/23 04/18/23 04/18/23 18:59 06:59 18:59 Intake Total 448 0 Output Total 1150 200 300 Balance -702 -200 -300 Intake: Oral 448 0 Output: Urine 1150 200 300 Other: Voiding Method External Catheter External Catheter External Catheter # Voids 1 # Bowel Movements 1 - Exam No acute distress, oriented 3. The patient continues on oxygen at 2 L. HEENT examination is grossly unremarkable. Neck supple. Full range of motion. No adenopathy thyromegaly or neck vein distention. Cardiovascular examination reveals regular rhythm rate. S1-S2 normal. No S3 or S4. No discernible murmur noted. Heart rate 86 bpm. Lungs reveal scattered diffuse rhonchi. Breath sounds are equal bilaterally but diminished throughout. No wheezes. 2 L saturation is 96%. Abdomen soft bowel sounds are heard. No masses or tenderness. Extremities are intact. No cyanosis clubbing or edema. Skin is without rash or lesion. Neurologic examination is brief but nonfocal. - Labs CBC & Chem 7: 04/18/23 08:10 04/18/23 08:10 Labs: Abnormal Lab Results - Last 24 Hours (Table) 04/17/23 04/17/23 04/17/23 Range/Units 15:18 16:18 20:27 MCHC (31.0-37.0) g/dL Lymphocytes # (1.0-4.8) k/uL Sodium 135 L (137-145) mmol/L Chloride 87 L (98-107) mmol/L Carbon Dioxide 38 H (22-30) mmol/L BUN 65 H (7-17) mg/dL Creatinine 1.13 H (0.52-1.04) mg/dL Glucose 177 H (74-99) mg/dL POC Glucose (mg/dL) 186 H 200 H (70-110) mg/dL 04/18/23 04/18/23 04/18/23 Range/Units 06:40 08:10 08:10 MCHC 30.6 L (31.0-37.0) g/dL Lymphocytes # 0.2 L (1.0-4.8) k/uL Sodium (137-145) mmol/L Chloride 88 L (98-107) mmol/L Carbon Dioxide 43 H* (22-30) mmol/L BUN 63 H (7-17) mg/dL Creatinine 1.18 H (0.52-1.04) mg/dL Glucose 237 H (74-99) mg/dL POC Glucose (mg/dL) 140 H (70-110) mg/dL 04/18/23 Range/Units 11:27 MCHC (31.0-37.0) g/dL Lymphocytes # (1.0-4.8) k/uL Sodium (137-145) mmol/L Chloride (98-107) mmol/L Carbon Dioxide (22-30) mmol/L BUN (7-17) mg/dL Creatinine (0.52-1.04) mg/dL Glucose (74-99) mg/dL POC Glucose (mg/dL) 217 H (70-110) mg/dL Microbiology - Last 24 Hours (Table) 04/16/23 09:20 Gram Stain - Final Sputum Sputum Culture - Final 04/14/23 14:25 Blood Culture - Preliminary Blood 04/14/23 14:25 Blood Culture - Preliminary Blood Assessment and Plan Assessment: Acute on chronic hypoxemic and hypercapnic respiratory failure secondary to c ommunity-acquired pneumonia and COPD exacerbation. Severe COPD. Chronic hypoxemic respiratory failure. Chronic atrial fibrillation. Benign essential hypertension. Hyperlipidemia. Chronic cor pulmonale. Plan: Plan dated 04/18/2023. She had given some consideration to doing bronchoscopy on this patient, BAL, and therapeutic lavage. Clinically, the patient appears stable, and her chest x- rays improved. The patient's antibiotic is currently Augmentin 875 twice a day. CV oxygen at 2 L, and is not receiving any IV fluids because the patient's feeling better, and because her chest x-rays improved, we will hold off for the time being, doing bronchoscopy. Additional recommendations and suggestions are forthcoming. In the end, if the abnormality in the right chest does not improve, she may benefit from bronchoscopy and biopsy. Time with Patient: Less than 30
[2023-04-18 16:30] LABS: Glucose,Whole Blood 188 mg/dL (70-110)
[2023-04-18 20:14] LABS: Glucose,Whole Blood 229 mg/dL (70-110)
[2023-04-18] MEDS: AMOXIC-POT CLAV 875-125MG 1 EACH TAB PO SCH (21:05)
--- NOTE | 2023-04-18 22:01 | P.PN ---
Subjective Progress Note Date: 04/18/23 77-year-old female with past medical history of A. fib on Eliquis, COPD who wears 2 L home O2 and CPAP at night, CHF who presents to the emergency department with significant respiratory failure. States that she has been coughing for the past couple of days and has had some bloody sputum. She has not been wearing her CPAP. She has been wearing her 2 L of oxygen however remained significantly short of breath. She went to Dr. Molina's office today. When she arrived she was obtunded. Dr. Molina staff had to pull the patient from the vehicle. They checked a pulse ox and it was 36%. She was placed on 5 L of oxygen and EMS was called. They did bag the patient. She became more responsive and they placed her on CPAP. She denies chest pain. No nausea or vomiting. has been sick with similar symptoms. No fevers. No worsening lower extremity swelling. Has been taking all of her medications as directed. No other alleviating, precipitating or modifying factors Patient was placed on BiPAP. He continues to deteriorate Patient became more lethargic and confused; stat ABGs were completed which revealed hypercapnia; patient's BiPAP settings were changed to IPAP 12, EPAP 6 and FiO2 60% Patient is admitted for further treatment of acute hypoxic/hypercapnic respiratory failure 04/18/2023 Patient seen and evaluated in follow-up today with pulmonary following closely. Patient is maintained on 2 L and continues to report shortness of breath and cough. Patient chest x-ray showing some improvement and initially discussing possible bronchoscopy with BAL although will hold off for now and monitor closely for improvements on the right side. Recommend follow-up labs and chest x-ray in the morning. Encouraged increased activity as tolerated and will continue current medication regimen. Recommend PT/OT therapy evaluation for weakness although patient is refusing rehab and reports she is going home and has had home care in the past. Patient is currently afebrile with no reports of chest pain or palpitations noted. Patient continues to be short of breath with cough reporting feeling slightly better although not baseline. Will follow up with pulmonary in the a.m. and discussed discharge planning in the next couple of days. Review of systems: Constitutional: No reports of fatigue, fever, or chills Cardiovascular: No reports of chest pain or palpitations Respiratory: reports of shortness of breath and continued cough GI: No reports of nausea, vomiting, or diarrhea : No reports of dysuria or retention Neurovascular: reports of generalized weakness All medications have been reviewed Physical exam: GENERAL: The patient is alert and oriented x3, not in any acute distress. Well developed, well nourished. Morbidly obese HEENT: Pupils are round and equally reacting to light. EOMI. No scleral icterus. No conjunctival pallor. Normocephalic, atraumatic. No pharyngeal erythema. No thyromegaly. CARDIOVASCULAR: S1 and S2 muffled PULMONARY: Diminished breath sounds bilaterally with some scattered rhonchi and continued congestion noted on exam ABDOMEN: Soft, nontender, nondistended, normoactive bowel sounds. No palpable organomegaly. MUSCULOSKELETAL: No joint swelling or deformity. EXTREMITIES: No cyanosis, clubbing, or pedal edema. NEUROLOGICAL: Gross neurological examination did not reveal any focal deficits. SKIN: No rashes. Assessment: -Acute on chronic hypoxic and hypercapnic respiratory failure; related to community-acquired pneumonia and COPD exacerbation -Acute exacerbation COPD; severe COPD -Community-acquired pneumonia -Chronic atrial fibrillation; patient is anticoagulated with eliquis -Hypertension; continue home dose of losartanhydrochlorothiazide 5012 0.5 mg daily -Hyperlipidemia; currently not on any statin therapy -DVT prophylaxis; SCDs -full code Plan: Recommend continue current medications and management with pulmonary following Chest x-ray reviewed today showing improvement in the right aeration patient is maintained on DuoNeb's along with IV steroids Patient with weakness and reports will be returning home with family and will have PT/OT therapy evaluate the patient. Patient previously did have home care which patient is agreeable to. Encouraged increased activity as tolerated Recommend follow-up labs in a.m. Pulmonary considering possible bronchoscopy with BAL is not having clinical improvement The impression and plan of care has been dictated by Veronica Iqbal Nurse Practitioner as directed. Dr. Morteza MD I have performed a history and examination and MDM of this patient, discussed the same with the dictator, and agree with the dictator's assessment and plan as written ,documented as a scribe. Based on total visit time, I have performed more than 50% of the visit. Objective - Vital Signs Vital signs: Vital Signs Temp 97.9 F 04/18/23 08:00 Pulse 86 04/18/23 08:48 Resp 20 04/18/23 08:00 BP 120/74 04/18/23 08:00 Pulse Ox 96 04/18/23 08:27 FiO2 50 04/18/23 04:59 Intake & Output 04/17/23 04/18/23 04/18/23 18:59 06:59 18:59 Intake Total 448 0 Output Total 1150 200 Balance -702 -200 0 Intake: Oral 448 0 Output: Urine 1150 200 Other: Voiding Method External Catheter External Catheter - Labs CBC & Chem 7: 04/18/23 08:10 04/18/23 08:10 Labs: Abnormal Lab Results - Last 24 Hours (Table) 04/17/23 04/17/23 04/17/23 Range/Units 11:29 15:18 16:18 MCHC (31.0-37.0) g/dL Lymphocytes # (1.0-4.8) k/uL Sodium 135 L (137-145) mmol/L Chloride 87 L (98-107) mmol/L Carbon Dioxide 38 H (22-30) mmol/L BUN 65 H (7-17) mg/dL Creatinine 1.13 H (0.52-1.04) mg/dL Glucose 177 H (74-99) mg/dL POC Glucose (mg/dL) 149 H 186 H (70-110) mg/dL 04/17/23 04/18/23 04/18/23 Range/Units 20:27 06:40 08:10 MCHC 30.6 L (31.0-37.0) g/dL Lymphocytes # 0.2 L (1.0-4.8) k/uL Sodium (137-145) mmol/L Chloride (98-107) mmol/L Carbon Dioxide (22-30) mmol/L BUN (7-17) mg/dL Creatinine (0.52-1.04) mg/dL Glucose (74-99) mg/dL POC Glucose (mg/dL) 200 H 140 H (70-110) mg/dL Microbiology - Last 24 Hours (Table) 04/14/23 14:25 Blood Culture - Preliminary Blood 04/14/23 14:25 Blood Culture - Preliminary Blood 04/16/23 09:20 Gram Stain - Preliminary Sputum
[2023-04-19] MEDS: IPRATROPIUM-ALBUTEROL 3 ML NEB INHALATION PRN (00:09)
[2023-04-19 06:09] LABS: Glucose,Whole Blood 151 mg/dL (70-110)
[2023-04-19] MEDS: methylPREDNISolone SOD SUCCI 125 MG/2 ML VIAL IV SCH ×2 (06:20→11:06)
[2023-04-19] MEDS: INSULIN ASPART (NovoLOG) 100 UNIT/ML VIAL SQ SCH ×2 (06:20→11:31)
[2023-04-19 08:03] LABS: Basophils % (A) 0 %; Eosinophils % (A) 0 %; HGB 12.6 gm/dL (11.4-16.0); Hypochromasia Moderate; Lymphocytes # (A) 0.3 k/uL (1.0-4.8); Lymphocytes % (A) 4 %; MCH 29.7 pg (25.0-35.0); MCHC 30.6 g/dL (31.0-37.0); MCV 96.9 fL (80.0-100.0); Mean Platelet Volume 7.4; Monocytes # (A) 0.3 k/uL (0-1.0); Monocytes % (A) 4 %; Neutrophils # (A) 6.5 k/uL (1.3-7.7); Neutrophils % (A) 91 %; Platelet Count 219 k/uL (150-450); RBC 4.23 m/uL (3.80-5.40); RDW 13.8 % (11.5-15.5); WBC 7.1 k/uL (3.8-10.6)
[2023-04-19 08:18] LABS: African American GFR (CKD) 60 (>60 ml/min/1.73 sqM); Blood Urea Nitrogen 62 mg/dL (7-17); Calcium 9.4 mg/dL (8.4-10.2); Chloride 88 mmol/L (98-107); Glucose 139 mg/dL (74-99); Magnesium 2.2 mg/dL (1.6-2.3); Non-African American GFR(CKD) 52 (>60 ml/min/1.73 sqM); Potassium 3.6 mmol/L (3.5-5.1); Sodium 138 mmol/L (137-145)
[2023-04-19 08:25] LABS: Anion Gap 3 mmol/L
[2023-04-19] MEDS: APIXABAN 5 MG TAB PO SCH (08:35)
[2023-04-19] MEDS: POTASSIUM CHLORIDE ER 20 MEQ TAB.ER PO SCH (08:35)
[2023-04-19] MEDS: LOSARTAN-HCTZ 50-12.5 MG 1 EACH TAB PO SCH (08:35)
--- NOTE | 2023-04-19 08:37 | XR ---
EXAMINATION TYPE: XR chest 1V portable DATE OF EXAM: 04/19/2023 7:09 AM COMPARISON: Chest radiographs from 04/18/2023 TECHNIQUE: XR chest 1V portable Portable AP radiograph of the chest. CLINICAL INDICATION:Female, 77 years old with history of short of breath; FINDINGS: Lungs/Pleura: No pneumothorax or pleural effusion. Persistent right suprahilar patchy airspace opacit y. Pulmonary vascularity: Unremarkable. Heart/mediastinum: Cardiomediastinal silhouette is enlarged and stable. Atherosclerotic calcificatio ns are seen in the aorta. Musculoskeletal: No acute osseous pathology. IMPRESSION: Similar right mid lung suprahilar patchy airspace opacity
[2023-04-19] MEDS: AMOXIC-POT CLAV 875-125MG 1 EACH TAB PO SCH (08:38)
[2023-04-19 08:46] LABS: Carbon Dioxide 47 mmol/L (22-30)
[2023-04-19 08:49] VITALS: RESP 20; TEMP 97.8
[2023-04-19] MEDS: FORMOTEROL FUMARATE 20 MCG/2 ML NEBU INHALATION SCH (09:17)
[2023-04-19] MEDS: IPRATROPIUM-ALBUTEROL 3 ML NEB INHALATION SCH ×2 (09:17→13:19)
[2023-04-19] MEDS: BUDESONIDE 1 MG/2 ML NEBU INHALATION SCH (09:17)
[2023-04-19 09:23] VITALS: BMI 53.2
--- NOTE | 2023-04-19 10:59 | P.PN ---
Subjective Progress Note Date: 04/19/23 Principal diagnosis: Pneumonia. Acute on chronic hypoxic and hypercapnic respiratory failure secondary to COPD exacerbation and extensive right-sided pneumonia, possible bronchogenic carcinoma. This is a 77-year-old female, familiar to my service, however I haven't seen this patient myself for her severe underlying COPD not seen by me since 12/28/2019, however the patient has been seen by Dr. Bounre a few times in the last few years, and her labs visit to our office was 02/02/2022. Patient was placed on BiPAP for chronic hypercapnic respiratory failure, and has been on m ultiple bronchodilators for her severe COPD. Patient had a PFT over 3 years ago, and her FEV1 was supposedly around 37% at the time. Has been maintained on noninvasive positive pressure ventilation with BiPAP 10/11 for quite some time. In addition to her COPD, patient is known to have history of chronic atrial fibrillation, on eliquis, patient uses oxygen as needed, patient presented to the ER with a few days' history of increased shortness of breath, productive cough with blood-tinged sputum, chest x-ray showed a masslike consolidation in the right perihilar area involving mostly the right midlung and right upper lobe. Patient required BiPAP with IPAP of 16 and EPAP of 6, and 40% FiO2. I saw the patient in the ER on consultation, recommended a CT of the chest, recommended the patient remains on antibiotics, bronchodilators, steroids, and I explained to the patient that the findings on the chest x-ray and CT of the chest are pointing to pneumonia, however the possibility of malignancy is being considered. I even touch bases with the patient regarding CODE STATUS, and the patient wishes DO NOT RESUSCITATE CODE STATUS CBC showed leukocytosis with WC count of 16.2 hemoglobin 12.6 ABG showed a pO2 of 105 pCO2 80 pH of 7.3 to this is basically consistent with chronic hypercapnia and chronic metabolic compensation for chronic respiratory acidosis basic metabolic profile is normal bicarb is 36 BUN is 46 creatinine 1.52. Her influenza and her COVID-19 screening as well as RSV screening is negative. Urine Legionella antigen is negative patient will be admitted, and we will continue to follow Reevaluated today on 04/16/2023, patient is feeling better, breathing a bit easier, she is now on nasal cannula at 2 L/m with O2 sats is 99% less cough and less wheezing less shortness of breath, patient has BiPAP at bedside, use the BiPAP at night mostly WBC count today is down to 12.3 hemoglobin is 12.7 and left bicep normal bicarb is 38, renal profile is better with BUN of 66 c reatinine down to 1.34 from 1.52. Pro-calcitonin level is elevated at 1.60 urine Legionella antigen is negative. Reevaluated today on 04/17/2023, patient is doing well, feeling better, breathing easier, remains on antibiotics, bronchodilators, steroids, remains on oxygen, and she has BiPAP at bedside using it mostly at night. Clinically patient is feeling better, and I'm planning to have a repeat chest x-ray on this patient in a.m. Still concerned about the possibility of underlying malignancy on this patient, she does have a masslike consolidation in the right perihilar area Progress note dated 04/18/2023. The patient is seen today in room 353. Her chest x-ray, shows improvement. She is on 2 L nasal cannula. She's not receiving any IV fluids. For to Augmentin, 875 mg twice a day. We had given some consideration to bronchoscopy, with airway examination, and therapeutic lavage. Because the patient appears to be doing better, we can hold off for now. White count 6.9, hemoglobin 12.7, hematocrit 41.6, and platelet count was normal. Sodium 138, potassium 3.5, chlorides 88, CO2 43, BUN 63, and creatinine 1.18. Sputum and blood sampling is thus far negative. Progress note dated 04/19/2023. The patient is seen today in room 353. She is on 2 L of oxygen. No IV fluids. Her x-ray continues to show improvement. The patient did use of BiPAP at nighttime, with settings of 16/6 and 40%. Her breathing is much improved. The patient sitting in a chair next to her bed. White count 7.1, hemoglobin 12.6, hematocrit 41, and platelet count 219,000. Sodium 138, potassium 3.6, chlorides 88, and CO2 47. Anion gap is 3 BUN is 62 and creatinine 1.03. Chest x-ray again shows a patchy infiltrate, right midlung area. Objective - Vital Signs Vital signs: Vital Signs Temp 97.8 F 04/19/23 08:32 Pulse 72 04/19/23 09:41 Resp 20 04/19/23 08:32 BP 139/67 04/19/23 08:32 Pulse Ox 96 04/19/23 10:00 FiO2 40 04/19/23 04:20 Intake & Output 04/18/23 04/19/23 04/19/23 18:59 06:59 18:59 Intake Total 898 250 240 Output Total 850 600 Balance 48 -350 240 Weight 145.15 kg Intake: IV 10 Invasive Line 1 10 Oral 898 240 240 Output: Urine 850 600 Other: Voiding Method External Catheter External Catheter Toilet External Catheter # Voids 1 # Bowel Movements 1 1 - Exam No acute distress, oriented 3. The patient continues on oxygen at 2 L. HEENT examination is grossly unremarkable. Neck supple. Full range of motion. No adenopathy thyromegaly or neck vein distention. Cardiovascular examination reveals regular rhythm rate. S1-S2 normal. No S3 or S4. No discernible murmur noted. Heart rate 72 bpm. Lungs reveal scattered diffuse rhonchi. Breath sounds are equal bilaterally but diminished throughout. No wheezes. 2 L saturation is 95 %. Abdomen soft bowel sounds are heard. No masses or tenderness. Extremities are intact. No cyanosis clubbing or edema. Skin is without rash or lesion. Neurologic examination is brief but nonfocal. - Labs CBC & Chem 7: 04/19/23 06:20 04/19/23 06:20 Labs: Abnormal Lab Results - Last 24 Hours (Table) 04/18/23 04/18/23 04/18/23 Range/Units 11:27 16:28 20:09 MCHC (31.0-37.0) g/dL Lymphocytes # (1.0-4.8) k/uL Chloride (98-107) mmol/L Carbon Dioxide (22-30) mmol/L BUN (7-17) mg/dL Glucose (74-99) mg/dL POC Glucose (mg/dL) 217 H 188 H 229 H (70-110) mg/dL 04/19/23 04/19/23 04/19/23 Range/Units 06:06 06:20 06:20 MCHC 30.6 L (31.0-37.0) g/dL Lymphocytes # 0.3 L (1.0-4.8) k/uL Chloride 88 L (98-107) mmol/L Carbon Dioxide 47 H* (22-30) mmol/L BUN 62 H (7-17) mg/dL Glucose 139 H (74-99) mg/dL POC Glucose (mg/dL) 151 H (70-110) mg/dL Microbiology - Last 24 Hours (Table) 04/14/23 14:25 Blood Culture - Preliminary Blood 04/14/23 14:25 Blood Culture - Preliminary Blood 04/16/23 09:20 Gram Stain - Final Sputum Sputum Culture - Final Assessment and Plan Assessment: Acute on chronic hypoxemic and hypercapnic respiratory failure secondary to community-acquired pneumonia and COPD exacerbation. Severe COPD. Chronic hypoxemic respiratory failure. Chronic atrial fibrillation. Benign essential hypertension. Hyperlipidemia. Chronic cor pulmonale. Plan: Plan dated 04/18/2023. She had given some consideration to doing bronchoscopy on this patient, BAL, and therapeutic lavage. Clinically, the patient appears stable, and her chest x- rays improved. The patient's antibiotic is currently Augmentin 875 twice a day. CV oxygen at 2 L, and is not receiving any IV fluids because the patient's feeling better, and because her chest x-rays improved, we will hold off for the time being, doing bronchoscopy. Additional recommendations and suggestions are forthcoming. In the end, if the abnormality in the right chest does not improve, she may benefit from bronchoscopy and biopsy. Plan dated 04/19/2023. At this time, we don't feel the patient needs a bronchoscopy. She's on 2 L of o xygen. Her chest x-ray does show improvement. We will continue to follow the patient, and make recommendations along the way. Labs, x-rays, and medications are reviewed. She's on appropriate therapy at this time. She remains on Augmentin 875 mg twice a day. In addition, she is getting bronchodilators, corticosteroids, and additional long-acting beta agonist and inhaled corticosteroids. Prognosis is guarded. Time with Patient: Less than 30
[2023-04-19 11:30] LABS: Glucose,Whole Blood 139 mg/dL (70-110)
[2023-04-19 12:19] VITALS: BP 126/68
[2023-04-19 13:33] VITALS: PULSE 68
--- NOTE | 2023-04-21 06:15 | P.DS ---
Providers Date of admission: 04/14/23 14:52 Expected date of discharge: 04/19/23 Attending physician: Adrienne Larios Consults: 04/14/23 14:52 Consult Physician Urgent Consulting Provider: Sixto Welch Reason/Comments: bipap dependant resp failure, cap aechf Do you want consulting provider notified?: Yes Primary care physician: Kimberly Molina Hospital Course: Final diagnosis -Acute on chronic hypoxic and hypercapnic respiratory failure; related to community-acquired pneumonia and COPD exacerbation -Acute exacerbation COPD; severe COPD -Community-acquired pneumonia -Chronic atrial fibrillation; patient is anticoagulated with eliquis -Hypertension -Hyperlipidemia -DVT prophylaxis -full code Discharge disposition Patient is being discharged in a stable condition with guarded prognosis to home with home care. Patient will follow-up with Dr. Molina in the outpatient setting upon discharge. Patient is to continue with current medications and close outpatient follow-up with pulmonary as scheduled. Total time taken is greater than 35 minutes. Hospital course This is a 77-year-old female who was recently admitted increased shortness of breath acute on chronic hypoxic respiratory failure along with to be acquired pneumonia and COPD exacerbation. Patient being closely monitored on antibiotics along with DuoNeb treatments and steroids showing slow improvement although improving. Patient is back to baseline chronically wears oxygen the outpatient setting. Patient reports to feeling weak and was evaluated by physical therapy recommending home with home care. Patient is agreeable and Homecare is being arranged with case management. Pulmonary following and has cleared the patient for discharge. Please refer to pulmonary notes for further HPI. Currently no reports of chest pain, worsening shortness of breath, or palpitations. Patient is afebrile. No reports of nausea or vomiting and patient is tolerating diet. Patient will be discharged home today. Guarded prognosis and high risk for readmission due to patient's significant comorbidities Physical exam: Gen: This is a 77-year-old female who is awake, alert and oriented 3, well-developed, well-nourished, ill-appearing, elderly appearing, morbidly obese HEENT: Head is atraumatic, normocephalic. Pupils equal, round. Sclerae is anicteric. NECK: Supple. No JVD. No lymphadenopathy. No thyromegaly. LUNGS: Diminished breath sounds bilaterally with some coarse scattered rhonchi. No intercostal retractions. HEART: Regular rate and rhythm. No murmur. ABDOMEN: Soft. Obese. Bowel sounds are present. No masses. No tenderness. EXTREMITIES: No pedal edema. No calf tenderness. NEUROLOGICAL: Patient is awake, alert and oriented x3. Cranial nerves 2 through 12 are grossly intact. Please refer to medication reconciliation sheet for a list of medications. The impression and plan of care has been dictated by Veronica Iqbal, Nurse Practitioner as directed. Dr. Morteza MD I have performed a history and examination and MDM of this patient, discussed the same with the dictator, and agree with the dictator's assessment and plan as written ,documented as a scribe. Based on total visit time, I have performed more than 50% of the visit. Patient Condition at Discharge: Fair Plan - Discharge Summary Discharge Rx Participant: No New Discharge Prescriptions: New Amoxic-Pot Clav 875-125Mg [Augmentin 875-125] 1 each PO Q12HR 6 Days #12 tab Ipratropium-Albuterol Nebulize [Duoneb 0.5 mg-3 mg/3 ml Soln] 3 ml INHALATION RT-Q2H PRN each PRN Reason: Shortness Of Breath Or Wheezing predniSONE 10 mg PO DIRECTED #30 tab Benzonatate [Tessalon Perles] 100 mg PO TID PRN #20 cap PRN Reason: Cough Acetaminophen Tab [Tylenol] 650 mg PO Q6HR PRN tab PRN Reason: Mild Pain Or Fever > 100.5 Continue Apixaban [Eliquis] 5 mg PO BID Albuterol Nebulized [Ventolin Nebulized] 2.5 mg INHALATION RT-Q3H PRN PRN Reason: Shortness Of Breath Ipratropium-Albuterol Nebulize [Duoneb 0.5 mg-3 mg/3 ml Soln] 3 ml INHALATION RT-QID Potassium Chloride ER [K-Dur 20] 20 meq PO DAILY Losartan-Hctz 50-12.5 mg [Hyzaar 50-12.5] 1 tab PO DAILY Fluticasone/Umeclidin/Vilanter [Trelegy Ellipta 100-62.5-25] 1 puff INHALATIO N RT-DAILY Discontinued Furosemide [Lasix] 20 mg PO DAILY Discharge Medication List Apixaban [Eliquis] 5 mg PO BID 07/13/19 [History] Albuterol Nebulized [Ventolin Nebulized] 2.5 mg INHALATION RT-Q3H PRN 07/26/20 [History] Ipratropium-Albuterol Nebulize [Duoneb 0.5 mg-3 mg/3 ml Soln] 3 ml INHALATION RT-QID 12/08/21 [History] Losartan-Hctz 50-12.5 mg [Hyzaar 50-12.5] 1 tab PO DAILY 11/01/22 [History] Fluticasone/Umeclidin/Vilanter [Trelegy Ellipta 100-62.5-25] 1 puff INHALATION RT-DAILY 04/14/23 [History] Potassium Chloride ER [K-Dur 20] 20 meq PO DAILY 04/14/23 [History] Acetaminophen Tab [Tylenol] 650 mg PO Q6HR PRN tab 04/19/23 [Rx] Amoxic-Pot Clav 875-125Mg [Augmentin 875-125] 1 each PO Q12HR 6 Days #12 tab 04/19/23 [Rx] Benzonatate [Tessalon Perles] 100 mg PO TID PRN #20 cap 04/19/23 [Rx] Ipratropium-Albuterol Nebulize [Duoneb 0.5 mg-3 mg/3 ml Soln] 3 ml INHALATION RT-Q2H PRN each 04/19/23 [Rx] predniSONE 10 mg PO DIRECTED #30 tab 04/19/23 [Rx] Follow up Appointment(s)/Referral(s): Sixto Welch MD [STAFF PHYSICIAN] - 05/18/23 1:00 pm [facility], [NON-STAFF] - 1-2 Days Kimberly Molina MD [Primary Care Provider] - 04/20/23 4:40 pm Patient Instructions/Handouts: Pneumonia (DC), Acute Respiratory Failure (ED) Activity/Diet/Wound Care/Special Instructions: Activity Limited until follow-up Follow-up with primary care provider on discharge Follow-up with pulmonary outpatient as scheduled Continue taking medications as prescribed Discharge Disposition: HOME WITH HOME HEALTH SERVICES
== END 2023-04-19 14:36 | disposition home health service (06) | DRG 193 ==
LOC: EC 12:49 → 3SCARD 14:52
PROVIDERS: ADMIT Hospitalist; ATTEND Hospitalist
PROC: 5A09357 Assistance with Respiratory Ventilation, Less than 24 Consecutive Hours, Continuous Positive Airway Pressure (ICD-10-PCS; principal; 2023-04-14)
DX: J18.9 Pneumonia, unspecified organism (principal); J96.21 Acute and chronic respiratory failure with hypoxia; J96.22 Acute and chronic respiratory failure with hypercapnia; I48.20 Chronic atrial fibrillation, unspecified; J44.1 Chronic obstructive pulmonary disease with (acute) exacerbation; J44.0 Chronic obstructive pulmonary disease with (acute) lower respiratory infection; C34.91 Malignant neoplasm of unspecified part of right bronchus or lung; Z68.43 Body mass index [BMI] 50.0-59.9, adult; I10 Essential (primary) hypertension; E78.5 Hyperlipidemia, unspecified; I27.81 Cor pulmonale (chronic); I11.0 Hypertensive heart disease with heart failure; I27.29 Other secondary pulmonary hypertension; G47.33 Obstructive sleep apnea (adult) (pediatric); I50.9 Heart failure, unspecified; Z20.822 Contact with and (suspected) exposure to COVID-19; E66.01 Morbid (severe) obesity due to excess calories; Z71.3 Dietary counseling and surveillance; Z66 Do not resuscitate; Z99.81 Dependence on supplemental oxygen; Z79.899 Other long term (current) drug therapy; Z79.01 Long term (current) use of anticoagulants; Z79.51 Long term (current) use of inhaled steroids; Z90.2 Acquired absence of lung [part of]
CPT/HCPCS: 36415; 36600; 71045; 71250; 80048; 80053; 82805; 83605; 83735; 83880; 84145; 84484; 85025; 85610; 85730; 87040; 87070; 87205; 87449; 87636; 93005; 94640; 94660; 94667; 94668; 94760; 96365; 96366; 96375; 96376; 99285

== ENCOUNTER → 2023-05-18 | Outpatient (CLI) | payer MEDICARE ==
[2023-05-18 23:03] LABS: HCT 40.7 % (37.2-46.3); HGB 12.3 d/dL (12.0-15.0); MCH 29.9 pg (27.0-32.0); MCHC 30.2 d/dL (32.0-37.0); MCV 98.8 FL (80.0-97.0); NRBC Per 100 WBC 0 X 10*3/uL (0.00-0.01); Platelet Count 256 X 10*3/uL (140-440); RBC 4.12 X 10*6/uL (4.10-5.20); RDW 14.9 % (11.5-14.5); WBC 9.67 X 10*3/uL (4.50-10.00)
[2023-05-19 00:31] LABS: Blood Urea Nitrogen 17.5 mg/dL (9.0-27.0); Carbon Dioxide 35.9 mmol/L (21.6-31.8); Chloride 98 mmol/L (96-109); Potassium 3.5 mmol/L (3.5-5.5); Sodium 143 mmol/L (135-145)
== END | disposition home or self-care (01) ==
LOC: LABWHC1 13:59
PROVIDERS: ATTEND Internal Medicine
DX: I50.9 Heart failure, unspecified (principal)
CPT/HCPCS: 36415; 80051; 82565; 84520; 85027

== ENCOUNTER → 2023-06-04 | Outpatient (CLI) | payer MEDICARE ==
--- NOTE | 2023-06-04 15:16 | PE ---
EXAMINATION TYPE: PET CT fusion skull to thigh DATE OF EXAM: 06/04/2023 CLINICAL INDICATION:Female, 77 years old with history of R91.1 SPN; TECHNIQUE: Following the intravenous administration of 11.7 mCi of F-18 FDG, whole body images are performed from the skull base to the midthigh. Images are reviewed on the computer in the coronal, a xial, and sagittal planes. Reconstructed rotating images are created on independent workstation and reviewed on the computer. A non-contrast CT is performed in conjunction with the PET scan. Glucose level 79 mg/dL COMPARISON: CT 04/15/2023, PET/CT None, FINDINGS: Mediastinal SUV mean is 2.4. Hepatic parenchyma SUV mean is 2.8. SKULL BASE AND NECK: No suspicious radiotracer activity. CHEST, MEDIASTINUM, AND HILAR REGION: Area of consolidation in the right upper lung is no longer visualized is no suspicious FDG activity. Scattered streaky atelectasis/scarring. ABDOMEN AND PELVIS: No suspicious radiotracer activity. MUSCULOSKELETAL STRUCTURES: No suspicious radiotracer activity. OTHER CT: Atherosclerosis of the arterial vasculature. Heart is mildly enlarged for size. Scattered c olonic diverticula. Diastasis of the ventral wall with suspected postsurgical change. Mild emphysema changes in lung apices. Hiatal hernia device is present. IMPRESSION: No suspicious radiotracer activity. Area within the right lung was most compatible with infectious/in flammatory process. No suspicious FDG activity.
== END | disposition home or self-care (01) ==
LOC: RADPETMAIN 11:16
PROVIDERS: ATTEND Internal Medicine
DX: R91.1 Solitary pulmonary nodule (principal)
CPT/HCPCS: 78815; A9552

== ENCOUNTER → 2023-11-04 | Outpatient (CLI) | payer MEDICARE, OTHER ==
[2023-11-04 11:45] LABS: African American GFR (CKD) 66 (>60 ml/min/1.73 sqM); Blood Urea Nitrogen 32 mg/dL (7-17); Non-African American GFR(CKD) 58 (>60 ml/min/1.73 sqM)
--- NOTE | 2023-11-04 14:37 | CT ---
EXAMINATION TYPE: CT chest w con DATE OF EXAM: 11/04/2023 COMPARISON: 04/15/2023 HISTORY: abnormal prior lung imaging CT DLP: 442.6 mGycm Automated exposure control for dose reduction was used. TECHNIQUE: CT scan of the chest is performed with IV Contrast, patient injected with 80cc mL of Isovue 300. MIP Images are created on CT scanner and reviewed. 3D reconstructed images are created on an independent workstation and reviewed. FINDINGS: There is volume loss on the right suggesting possible right upper lobe lobectomy. There is mild pleural-parenchymal changes in the right proximal There is mild scattered faint groundglass density bilaterally. The large consolidative process in the right lung has cleared in the interval and presumably represented pneumonia. There is no suspicious lung mass or nodule. There is moderate cardiomegaly. Great vessels the chest are normal and there is no mediastinal, hilar or axillary adenopathy. There are no focal osseous osseous abnormalities. Limited scanning the upper abdomen reveals postsurg ical changes at the GE junction and cholecystectomy. IMPRESSION: 1. Volume loss in the right lung. Findings raise the question right upper lobe lobectomy. 2. Mild pleural-parenchymal scarring in the right apex. 3. Complete resolution of the consolidative process in the right lung identified on the prior study. No acute cardiopulmonary disease. 4. Cardiomegaly. 5. No mediastinal, hilar or axillary adenopathy. 6. No suspicious lung mass or nodule. 7. No osseous abnormality.
== END | disposition home or self-care (01) ==
LOC: RADCTMAIN 10:40
PROVIDERS: ATTEND Internal Medicine
DX: I51.7 Cardiomegaly (principal); J98.4 Other disorders of lung; R91.8 Other nonspecific abnormal finding of lung field
CPT/HCPCS: 82565; 84520; 71260; 36415; Q9967

== ENCOUNTER 2024-01-07 14:02 | Inpatient (IN) | payer MEDICARE, OTHER ==
--- NOTE | 2024-01-07 14:29 | ED ---
SOB HPI - General Chief Complaint: Shortness of Breath Stated Complaint: Low BP Time Seen by Provider: 01/07/24 14:10 Source: patient, RN/MD, EMS, RN notes reviewed Mode of arrival: EMS Limitations: no limitations - History of Present Illness Initial Comments: 78-year-old female brought in by EMS transfer from [facility] who presented to their facility with complaints of shortness of breath. She does have a history of A-fib which is controlled with medication congestive heart failure COPD she is on home oxygen of 1.5 L/min apparently this was disconnected accidentally for a period of time and the patient got more short of breath this time when I am. Also of note she was diagnosed with influenza a 2 days ago. She also has had decreased oral intake and some diarrhea last evening. She was noted in the emergency department as well as via EMS to have hypotensive episodes she was given a total of approximately 550 cc of normal saline during the treatment. She presents at this time with no complaints she feels much improved with respect to shortness of breath. She does states she feels somewhat dehydrated. No other current complaints. MD Complaint: shortness of breath - Related Data Home Medications Medication Instructions Recorded Confirmed Apixaban [Eliquis] 5 mg PO BID 07/13/19 04/14/23 Albuterol Nebulized [Ventolin 2.5 mg INHALATION RT-Q3H PRN 07/26/20 04/14/23 Nebulized] Ipratropium-Albuterol Nebulize 3 ml INHALATION RT-QID 12/08/21 04/14/23 [Duoneb 0.5 mg-3 mg/3 ml Soln] Losartan-Hctz 50-12.5 mg [Hyzaar 1 tab PO DAILY 11/01/22 04/14/23 50-12.5] Fluticasone/Umeclidin/Vilanter 1 puff INHALATION RT-DAILY 04/14/23 04/14/23 [Trelegy Ellipta 100-62.5-25] Potassium Chloride ER [K-Dur 20] 20 meq PO DAILY 04/14/23 04/14/23 Previous Rx's Medication Instructions Recorded Acetaminophen Tab [Tylenol] 650 mg PO Q6HR PRN tab 04/19/23 Amoxic-Pot Clav 875-125Mg 1 each PO Q12HR 6 Days #12 tab 04/19/23 [Augmentin 875-125] Benzonatate [Tessalon Perles] 100 mg PO TID PRN #20 cap 04/19/23 Ipratropium-Albuterol Nebulize 3 ml INHALATION RT-Q2H PRN each 04/19/23 [Duoneb 0.5 mg-3 mg/3 ml Soln] predniSONE 10 mg PO DIRECTED #30 tab 04/19/23 Allergies Allergy/AdvReac Type Severity Reaction Status Date / Time No Known Allergies Allergy Verified 01/07/24 14:14 Review of Systems ROS Statement: Those systems with pertinent positive or pertinent negative responses have been documented in the HPI. ROS Other: All systems not noted in ROS Statement are negative. Past Medical History Past Medical History: Atrial Fibrillation, COPD, Hypertension Additional Past Medical History / Comment(s): COPD, hypertension, secondary pulmonary hypertension, chronic hypoxic respiratory failure, chronic atrial fibrillation, hyperlipidemia, obstructive sleep apnea, NSTEMI (01/07/24) History of Any Multi-Drug Resistant Organisms: None Reported Additional Past Surgical History / Comment(s): Right lung lung lobectomy, hernia repair and the patient has a large anterior abdominal wall incision, hysterectomy, knee surgery, cholecystectomy Past Anesthesia/Blood Transfusion Reactions: No Reported Reaction Past Psychological History: No Psychological Hx Reported Smoking Status: Never smoker Past Alcohol Use History: Rare Past Drug Use History: None Reported - Past Family History Mother Family Medical History: Cancer Father Family Medical History: Coronary Artery Disease (CAD) General Exam - General Exam Comments Initial Comments: This is a well-developed well-nourished awake alert oriented x 4 female Limitations: no limitations General appearance: alert, in no apparent distress Head exam: Present: atraumatic, normocephalic, normal inspection Eye exam: Present: normal appearance, PERRL, EOMI. Absent: scleral icterus, conjunctival injection, periorbital swelling ENT exam: Present: mucous membranes dry Neck exam: Present: normal inspection, full ROM, other (No stridor JVD or bruits). Absent: tenderness, meningismus, lymphadenopathy Respiratory exam: Present: normal lung sounds bilaterally. Absent: respiratory distress, wheezes, rales, rhonchi, stridor Cardiovascular Exam: Present: regular rate, normal rhythm, normal heart sounds. Absent: systolic murmur, diastolic murmur, rubs, gallop, clicks GI/Abdominal exam: Present: soft, normal bowel sounds. Absent: distended, tenderness, guarding, rebound, rigid Extremities exam: Present: normal inspection, full ROM, normal capillary refill. Absent: tenderness, pedal edema, joint swelling, calf tenderness Back exam: Present: normal inspection Neurological exam: Present: alert, oriented X3, CN II-XII intact Psychiatric exam: Present: normal affect, normal mood Skin exam: Present: warm, dry, intact, normal color. Absent: rash Course Vital Signs 01/07/24 01/07/24 01/07/24 14:04 14:32 14:33 Temperature 98.3 F Pulse Rate 77 69 73 Respiratory 20 20 Rate Blood Pressure 99/62 114/77 114/77 O2 Sat by Pulse 99 100 100 Oximetry 01/07/24 01/07/24 01/07/24 15:00 15:30 16:00 Temperature Pulse Rate 67 74 Respiratory Rate Blood Pressure 120/74 98/41 92/43 O2 Sat by Pulse 100 100 98 Oximetry 01/07/24 16:13 Temperature Pulse Rate Respiratory 20 Rate Blood Pressure O2 Sat by Pulse Oximetry - Reevaluation(s) Reevaluation #1: 01/07/24 17:21 Reevaluation patient she appears to be resting comfortably no complaints of shortness of breath or chest pain at this time blood pressure at the time of my examination 120 systolic. I did discuss the case again with Dr. Bal and Dr. Mason. Medical Decision Making - Medical Decision Making I did discuss findings with the patient and family members were present as well as Dr. Bal and Dr. Mason the patient will be admitted the repeat troponin has gone up to 1.75. Was pt. sent in by a medical professional or institution (, PA, TONGSMAN, urgent care, hospital, or penitentiary...) When possible be specific @ -No Did you speak to anyone other than the patient for history (EMS, parent, family, police, friend...)? What history was obtained from this source @ -ER physician at [facility] as well as paramedics upon arrival Did you review nursing and triage notes (agree or disagree)? Why? @ -I reviewed and agree with nursing and triage notes Were old charts reviewed (outside hosp., previous admission, EMS record, old EKG, old radiological studies, urgent care reports/EKG's, penitentiary records)? Report findings @ -[facility] old charts were reviewed Differential Diagnosis (chest pain, altered mental status, abdominal pain women, abdominal pain men, vaginal bleeding, weakness, fever, dyspnea, syncope, headache, dizziness, GI bleed, back pain, seizure, CVA, palpatations, mental health, musculoskeletal)? @ -Dyspnea, elevated troponin, hypotensive episode EKG interpreted by me (3pts min.). @ -As above EKG interpreted by me atrial fibrillation rate 77 QRS duration 86 QT/QTc 361/393 nonspecific anteroseptal configuration compared to the one sent from [facility] which showed A-fib similar morphology except there was a PVC on that 1. X-rays interpreted by me (1pt min.). @ -No increased pulmonary vascular congestion interpreted by me CT interpreted by me (1pt min.). @ -None done U/S interpreted by me (1pt. min.). @ -None done What testing was considered but not performed or refused? (CT, X-rays, U/S, labs)? Why? @ -None What meds were considered but not given or refused? Why? @ -None Did you discuss the management of the patient with other professionals (professionals i.e. , PA, TONGSMAN, lab, RT, psych nurse, child welfare social worker, wash plant operator, teacher, senior administrative services officer, case management coordinator)? Give summary @ -No Was smoking cessation discussed for >3mins.? @ -No Was critical care preformed (if so, how long)? @ -31 minutes Were there social determinants of health that impacted care today? How? (Homelessness, low income, unemployed, alcoholism, drug addiction, transportation, low edu. Level, literacy, decrease access to med. care, mcc, rehab)? @ -No Was there de-escalation of care discussed even if they declined (Discuss DNR or withdrawal of care, Hospice)? DNR status @ -No What co-morbidities impacted this encounter? (DM, HTN, Smoking, COPD, CAD, Cancer, CVA, ARF, Chemo, Hep., AIDS, mental health diagnosis, sleep apnea, morbid obesity)? @ -Atrial fibrillation, COPD, hypertension, right upper lobectomy Was patient admitted / discharged? Hospital course, mention meds given and route, prescriptions, significant lab abnormalities, going to OR and other pertinent info. @ -Hospital course Undiagnosed new problem with uncertain prognosis? @ -No Drug Therapy requiring intensive monitoring for toxicity (Heparin, Nitro, Insulin, Cardizem)? @ -No Were any procedures done? @ -No Diagnosis/symptom? @ -NSTEMI, CHF, hypotensive episode, renal insufficiency Acute, or Chronic, or Acute on Chronic? @ -Acute Uncomplicated (without systemic symptoms) or Complicated (systemic symptoms)? @ -Placated Side effects of treatment? @ -No Exacerbation, Progression, or Severe Exacerbation? @ -No Poses a threat to life or bodily function? How? (Chest pain, [place], [place], pneumonia, PE, COPD, DKA, ARF, appy, cholecystitis, CVA, Diverticulitis, Homicidal, Suicidal, threat to staff... and all critical care pts) @ -NSTEMI, CHF The patient is already anticoagulated with oral medication. - Lab Data Lab Results 01/07/24 Range/Units 14:25 Troponin I 1.750 H* (0.000-0.034) ng/mL Critical Care Time Critical Care Time: Yes Total Critical Care Time: 31 Disposition Clinical Impression: NSTEMI (non-ST elevated myocardial infarction), CHF (congestive heart failure), Hypotensive episode, Renal insufficiency Disposition: ADMITTED IP TO THIS HOSP Condition: Fair Referrals: Kimberly Molina MD [Primary Care Provider] - 1-2 days Time of Disposition: 17:30 Decision Date: 01/07/24 Decision Time: 17:31
[2024-01-07] MEDS: SODIUM CHLORIDE 0.9% 500 ML 250 ML IV ONE (14:34)
[2024-01-07] MEDS ORDERED: NITROGLYCERIN SL TABS 0.4 MG TAB SUBLINGUAL PRN (17:32)
[2024-01-07] MEDS ORDERED: ALBUTEROL NEBULIZED 2.5 MG/3 ML INHALATION PRN (17:34)
--- NOTE | 2024-01-07 17:36 | ED ---
Medical Decision Making - Lab Data Lab Results 01/07/24 Range/Units 14:25 Troponin I 1.750 H* (0.000-0.034) ng/mL Disposition Clinical Impression: NSTEMI (non-ST elevated myocardial infarction), CHF (congestive heart failure), Hypotensive episode, Renal insufficiency, Chronic atrial fibrillation Disposition: ADMITTED IP TO THIS HOSP Condition: Fair Referrals: Kimberly Molina MD [Primary Care Provider] - 1-2 days
[2024-01-07] MEDS: IPRATROPIUM-ALBUTEROL 3 ML NEB INHALATION SCH (19:39)
[2024-01-07] MEDS: HEPARIN SOD,PORK IN 0.45% NACL 25,000 UNIT in 0.45% NACL 1 250ML.BAG IV SCH (19:56)
--- NOTE | 2024-01-07 20:56 | XR ---
EXAMINATION TYPE: XR chest 2V DATE OF EXAM: 01/07/2024 8:24 PM CLINICAL INDICATION:Female, 78 years old with history of Chest Pain; [facility] COMPARISON: Chest radiographs from 04/19/2023. TECHNIQUE: XR chest 2V Frontal and lateral views of the chest. FINDINGS: Lungs/Pleura: There is flattening of the diaphragm with increased lucency of the lungs. No evidence o f pneumothorax, pleural effusion or focal consolidation. Pulmonary vascularity: Unremarkable. Heart/mediastinum: Cardiomediastinal silhouette is enlarged and stable. Musculoskeletal: No acute osseous pathology. IMPRESSION: 1. Similar exam, No acute cardiopulmonary disease process. 2. COPD changes.
[2024-01-07] MEDS ORDERED: APIXABAN 5 MG TAB PO SCH (21:00)
[2024-01-07] MEDS: OSELTAMIVIR 75 MG CAP PO SCH (23:16)
[2024-01-07 23:46] LABS: Basophils # (A) 0.1 k/uL (0-0.2); Basophils % (A) 0 %; Eosinophils # (A) 0.1 k/uL (0-0.7); Eosinophils % (A) 1 %; HCT 40.7 % (34.0-46.0); HGB 13.2 gm/dL (11.4-16.0); Lymphocytes # (A) 1.9 k/uL (1.0-4.8); Lymphocytes % (A) 13 %; MCH 31.1 pg (25.0-35.0); MCHC 32.6 g/dL (31.0-37.0); MCV 95.4 fL (80.0-100.0); Mean Platelet Volume 7.1; Monocytes # (A) 0.9 k/uL (0-1.0); Monocytes % (A) 6 %; Neutrophils # (A) 11.7 k/uL (1.3-7.7); Neutrophils % (A) 79 %; Platelet Count 261 k/uL (150-450); RBC 4.26 m/uL (3.80-5.40); WBC 14.9 k/uL (3.8-10.6)
[2024-01-07 23:58] LABS: INR 1.2 (<1.2); Prothrombin Time 12.8 sec (10.0-12.5)
[2024-01-08] LABS: ALT 12 U/L (4-34); AST 29 U/L (14-36); African American GFR (CKD) 20 (>60 ml/min/1.73 sqM); Albumin 3.3 g/dL (3.5-5.0); Alkaline Phosphatase 82 U/L (38-126); Anion Gap 1 mmol/L; Blood Urea Nitrogen 43 mg/dL (7-17); Carbon Dioxide 35 mmol/L (22-30); Chloride 95 mmol/L (98-107); Glucose 90 mg/dL (74-99); Magnesium 1.7 mg/dL (1.6-2.3); Non-African American GFR(CKD) 18 (>60 ml/min/1.73 sqM); Potassium 3.6 mmol/L (3.5-5.1); Sodium 131 mmol/L (137-145); Total Protein 5.7 g/dL (6.3-8.2)
[2024-01-08 00:08] LABS: NT-Pro-B-Type Natriuretic Pept 7830 pg/mL
[2024-01-08] MEDS: HEPARIN SODIUM 1,000 UN/ML (10ML VL) IV PRN (04:02)
[2024-01-08] MEDS: SYMBICORT 80-4.5 MCG INHALER INHALATION SCH (08:23)
[2024-01-08] MEDS: ASPIRIN 325 MG TAB PO SCH (08:29)
[2024-01-08] MEDS: POTASSIUM CHLORIDE ER 20 MEQ TAB.ER PO SCH (08:29)
[2024-01-08] MEDS: LOSARTAN-HCTZ 50-12.5 MG 1 EACH TAB PO SCH (08:38)
[2024-01-08] MEDS: OSELTAMIVIR 60 MG/10 ML ORAL SYRINGE PO SCH (08:54)
[2024-01-08 09:32] LABS: Chol/HDL Ratio 2.44 Ratio; LDL Cholesterol,Calculated 62.8 mg/dL (0.0-131.0); VLDL Calculation 19.34 mg/dL (5.00-40.00)
--- NOTE | 2024-01-08 12:11 | P.CRDCN ---
History of Present Illness Consult date: 01/08/24 Chief complaint: Abnormal cardiac enzymes History of present illness: The patient is a 78-year-old female patient with a past medical history sig nificant for permanent atrial fibrillation maintaining on oral anticoagulation as well as hypertension and dyslipidemia and overweight and chronic hypoxic respiratory failure on oxygen continuously. She was brought from [facility] for further evaluation. She presented with abdominal discomfort and she was diagnosed with viral infection recently on the stomach. For some reason she ended having blood work including troponin that came in to be abnormal and seems to be consistent with acute coronary syndrome. The patient denies any chest pain or chest discomfort and denies any increasing in the shortness of breath above the baseline. No dizziness or lightheadedness and no feeling of heart racing or fluttering and no presyncope or syncope. She underwent an EKG and that showed atrial fibrillation with diffuse nonspecific ST and T wave abnormalities unchanged compared to before. The cardiac enzymes as described above with abnormal troponin. NT proBNP came to be elevated at 7000. The chest x-ray did not show any acute abnormalities. Kidney function appears to be within normal limits. Electrolytes are within normal limits. The rest of the workup came in to be unremarkable. On examination she is in mild failure. She does have diminished breathing sounds bilaterally and she was sitting upright in bed with bilateral lower extremities edema noted an irregular rhythm with a systolic murmur at the right upper sternal border Assessment Acute coronary syndrome Abdominal discomfort which has improved Permanent atrial fibrillation with controlled heart rate Multiple comorbid conditions including hypertension and dyslipidemia Plan Consider medical treatment at this point since the patient is in overt failure Start the patient on Lasix 20 mg IV twice daily Start the patient on aspirin and statin No need for beta-shirley since she is bradycardic without AV josemanuel shirley agents Continue heparin IV Follow-up on the echocardiogram Further recommendations to follow Past Medical History Past Medical History: Atrial Fibrillation, COPD, Hypertension Additional Past Medical History / Comment(s): COPD, hypertension, secondary pulmonary hypertension, chronic hypoxic respiratory failure, chronic atrial fibrillation, hyperlipidemia, obstructive sleep apnea, NSTEMI (01/07/24) History of Any Multi-Drug Resistant Organisms: None Reported Additional Past Surgical History / Comment(s): Right lung lung lobectomy, hernia repair and the patient has a large anterior abdominal wall incision, hysterectomy, knee surgery, cholecystectomy Past Anesthesia/Blood Transfusion Reactions: No Reported Reaction Past Psychological History: No Psychological Hx Reported Smoking Status: Never smoker Past Alcohol Use History: Rare Past Drug Use History: None Reported - Past Family History Mother Family Medical History: Cancer Father Family Medical History: Coronary Artery Disease (CAD) Medications and Allergies Home Medications Medication Instructions Recorded Confirmed Type Apixaban [Eliquis] 5 mg PO BID 07/13/19 01/07/24 History Albuterol Nebulized [Ventolin 2.5 mg INHALATION RT-TID 07/26/20 01/07/24 History Nebulized] Losartan-Hctz 50-12.5 mg [Hyzaar 1 tab PO DAILY 11/01/22 01/07/24 History 50-12.5] Acetaminophen Tab [Tylenol] 650 mg PO Q6HR PRN tab 04/19/23 01/07/24 Rx Ondansetron [Zofran] 4 mg PO Q4H PRN 01/07/24 01/07/24 History Allergies Allergy/AdvReac Type Severity Reaction Status Date / Time No Known Allergies Allergy Verified 01/07/24 20:15 Physical Exam Vitals: Vital Signs Temp Pulse Pulse Resp BP BP Pulse Ox 01/08/24 11:47 65 18 01/08/24 11:43 70 16 95/45 94 L 01/08/24 11:39 67 16 01/08/24 08:24 69 16 100 01/08/24 08:00 97.4 F L 67 18 104/57 100 01/08/24 06:15 97.9 F 90 18 104/68 96 01/07/24 19:55 58 L 01/07/24 19:42 64 01/07/24 17:30 63 111/69 100 01/07/24 17:00 64 123/44 01/07/24 16:30 62 109/59 99 01/07/24 16:13 20 01/07/24 16:00 74 92/43 98 01/07/24 15:30 98/41 100 01/07/24 15:00 67 120/74 100 01/07/24 14:33 73 114/77 100 01/07/24 14:32 69 20 114/77 100 01/07/24 14:04 98.3 F 77 20 99/62 99 Intake and Output 01/07/24 01/08/24 01/08/24 22:59 06:59 14:59 Intake Total 81.333 240 Balance 81.333 240 Intake: Intake, IV Titration 81.333 Amount Heparin Sod,Pork in 0.45% 81.333 NaCl 25,000 unit In 0.45 % NaCl 1 250ml.bag @ 9. 585 UNITS/KG/HR 10 mls/hr IV .Q24H [facility] Rx#: [id number] Oral 240 Other: # Voids 1 Weight 104.326 kg Results 01/07/24 23:30 01/07/24 23:30 Cardiac Enzymes 01/07/24 01/07/24 01/07/24 Range/Units 14:25 17:50 22:25 AST (14-36) U/L Troponin I 1.750 H* 2.160 H* 2.040 H* (0.000-0.034) ng/mL 01/07/24 01/07/24 Range/Units 23:30 23:30 AST 29 (14-36) U/L Troponin I 1.890 H* (0.000-0.034) ng/mL Coagulation 01/07/24 01/08/24 01/08/24 Range/Units 23:30 02:20 03:22 PT 12.8 H (10.0-12.5) sec APTT >200.0 H* 30.3 H (22.0-30.0) sec Lipids 01/07/24 Range/Units 23:30 Triglycerides 96.70 (0.00-149.00) mg/dL Cholesterol 139.00 (0.00-200.00) mg/dL HDL Cholesterol 56.90 (40.00-60.00) mg/dL Cholesterol/HDL Ratio 2.44 Ratio CBC 01/07/24 Range/Units 23:30 WBC 14.9 H (3.8-10.6) k/uL RBC 4.26 (3.80-5.40) m/uL Hgb 13.2 (11.4-16.0) gm/dL Hct 40.7 (34.0-46.0) % Plt Count 261 (150-450) k/uL Comprehensive Metabolic Panel 01/07/24 Range/Units 23:30 Sodium 131 L (137-145) mmol/L Potassium 3.6 (3.5-5.1) mmol/L Chloride 95 L (98-107) mmol/L Carbon Dioxide 35 H (22-30) mmol/L BUN 43 H (7-17) mg/dL Creatinine 2.53 H (0.52-1.04) mg/dL Glucose 90 (74-99) mg/dL Calcium 9.0 (8.4-10.2) mg/dL AST 29 (14-36) U/L ALT 12 (4-34) U/L Alkaline Phosphatase 82 (38-126) U/L Total Protein 5.7 L (6.3-8.2) g/dL Albumin 3.3 L (3.5-5.0) g/dL Current Medications Generic Name Dose Route Start Last Admin Trade Name Freq PRN Reason Stop Dose Admin Acetaminophen 650 mg 01/07/24 17:34 Acetaminophen Tab 325 Mg Tab PO Q6HR PRN Mild Pain or Fever > 100.5 Albuterol Sulfate 2.5 mg 01/07/24 17:34 Albuterol Nebulized 2.5 Mg/3 Ml INHALATION RT-Q3H PRN Shortness Of Breath Albuterol/Ipratropium 3 ml 01/07/24 20:00 01/08/24 11:39 Ipratropium-Albuterol 3 Ml Neb INHALATION 3 ml RT-QID DELON Administration Aspirin 325 mg 01/08/24 09:00 01/08/24 08:29 Aspirin 325 Mg Tab PO 325 mg DAILY [facility]ON Administration Budesonide/Formoterol Fumarate 2 puff 01/08/24 08:00 01/08/24 08:23 Symbicort 80-4.5 Mcg Inhaler INHALATION 2 puff RT-BID [facility]ON Administration HCTZ/Losartan Potassium 1 each 01/08/24 09:00 01/08/24 08:38 Losartan-Hctz 50-12.5 Mg 1 Each Tab PO 1 each DAILY [facility] Administration Heparin Sodium (Porcine) 0 unit 01/08/24 03:55 01/08/24 04:02 Heparin Sodium 1,000 Un/Ml (10ml Vl) IV 5,210 unit Q6HR PRN Administration Low PTT Protocol Heparin Sodium/Sodium Chloride 250 mls @ 10 mls/hr 01/07/24 19:15 01/08/24 04:04 25,000 unit/ Sodium Chloride IV 12.585 units/kg/hr .Q24H [facility] 13.129 mls/hr Titration Protocol 9.585 UNITS/KG/HR Nitroglycerin 0.4 mg 01/07/24 17:32 Nitroglycerin Sl Tabs 0.4 Mg Tab SUBLINGUAL Q5M PRN Chest Pain Oseltamivir Phosphate 30 mg 01/08/24 09:00 01/08/24 08:54 Oseltamivir 60 Mg/10 Ml Oral Syringe PO 01/12/24 09:01 30 mg DAILY DELON Administration Protocol Potassium Chloride 20 meq 01/08/24 09:00 01/08/24 08:29 Potassium Chloride Er 20 Meq Tab.Er PO 20 meq DAILY DELON Administration Intake and Output 01/07/24 01/08/24 01/08/24 22:59 06:59 14:59 Intake Total 81.333 240 Balance 81.333 240 Intake: Intake, IV Titration 81.333 Amount Heparin Sod,Pork in 0.45% 81.333 NaCl 25,000 unit In 0.45 % NaCl 1 250ml.bag @ 9. 585 UNITS/KG/HR 10 mls/hr IV .Q24H [facility] Rx#: [id number] Oral 240 Other: # Voids 1 Weight 104.326 kg Patient Weight 01/09/24 06:59 Weight 104.326 kg 01/07/24 23:30 01/07/24 23:30
[2024-01-08] MEDS: FUROSEMIDE 10 MG/ML 2 ML VIAL IV SCH (12:13)
[2024-01-08] MEDS: ATORVASTATIN 40 MG TAB PO SCH (12:14)
--- NOTE | 2024-01-08 15:53 | P.HPIM ---
History of Present Illness H&P Date: 01/07/24 Chief Complaint: Shortness of breath 78-year-old female brought in by EMS transfer from [facility] who presented to their facility with complaints of shortness of breath. She does have a history of A-fib which is controlled with medication congestive heart failure COPD she is on home oxygen of 1.5 L/min apparently. Also of note she was diagnosed with influenza a 2 days ago. She also has had decreased oral intake and some diarrhea last evening. She was noted in the emergency department as well as via EMS to have hypotensive episodes she was given a total of approximately 550 cc of normal saline during the treatment. She presents at this time with complaint of shortness of breath but feels much improved with respect to shortness of breath. She does states she feels somewhat dehydrated. No other current complaints. EKG reveals atrial fibrillation rate 77 QRS duration 86 QT/QTc 361/393 nonspecific anteroseptal configuration compared to the one sent from [facility] which showed A-fib similar morphology except there was a PVC Troponin is elevated at 1.750 in ER, trending up to 2.160 Review of Systems REVIEW OF SYSTEMS: CONSTITUTIONAL: No fever, no malaise, no fatigue. HEENT: No recent visual problems or hearing problems. Denied any sore throat. CARDIOVASCULAR: No chest pain, orthopnea, PND, no palpitations, no syncope. PULMONARY: No shortness of breath, no cough, no hemoptysis. GASTROINTESTINAL: No diarrhea, no nausea, no vomiting, no abdominal pain. NEUROLOGICAL: No headaches, no weakness, no numbness. HEMATOLOGICAL: Denies any bleeding or petechiae. GENITOURINARY: Denies any burning micturition, frequency, or urgency. MUSCULOSKELETAL/RHEUMATOLOGICAL: Denies any joint pain, swelling, or any muscle pain. ENDOCRINE: Denies any polyuria or polydipsia. The rest of the 14-point review of systems is negative. Past Medical History Past Medical History: Atrial Fibrillation, COPD, Hypertension Additional Past Medical History / Comment(s): COPD, hypertension, secondary pulmonary hypertension, chronic hypoxic respiratory failure, chronic atrial fibrillation, hyperlipidemia, obstructive sleep apnea, NSTEMI (01/07/24) History of Any Multi-Drug Resistant Organisms: None Reported Additional Past Surgical History / Comment(s): Right lung lung lobectomy, hernia repair and the patient has a large anterior abdominal wall incision, hysterectomy, knee surgery, cholecystectomy Past Anesthesia/Blood Transfusion Reactions: No Reported Reaction Past Psychological History: No Psychological Hx Reported Smoking Status: Never smoker Past Alcohol Use History: Rare Past Drug Use History: None Reported - Past Family History Mother Family Medical History: Cancer Father Family Medical History: Coronary Artery Disease (CAD) Medications and Allergies Home Medications Medication Instructions Recorded Confirmed Type Apixaban [Eliquis] 5 mg PO BID 07/13/19 01/07/24 History Albuterol Nebulized [Ventolin 2.5 mg INHALATION RT-TID 07/26/20 01/07/24 History Nebulized] Losartan-Hctz 50-12.5 mg [Hyzaar 1 tab PO DAILY 11/01/22 01/07/24 History 50-12.5] Acetaminophen Tab [Tylenol] 650 mg PO Q6HR PRN tab 04/19/23 01/07/24 Rx Ondansetron [Zofran] 4 mg PO Q4H PRN 01/07/24 01/07/24 History Allergies Allergy/AdvReac Type Severity Reaction Status Date / Time No Known Allergies Allergy Verified 01/07/24 20:15 Physical Exam Vitals: Vital Signs Temp Pulse Resp BP Pulse Ox 01/07/24 16:13 20 01/07/24 16:00 74 92/43 98 01/07/24 15:30 98/41 100 01/07/24 15:00 67 120/74 100 01/07/24 14:33 73 114/77 100 01/07/24 14:32 69 20 114/77 100 01/07/24 14:04 98.3 F 77 20 99/62 99 Intake and Output 01/07/24 01/07/24 01/07/24 06:59 14:59 22:59 Other: Weight 104.326 kg General appearance: alert, in no apparent distress Head exam: Present: atraumatic, normocephalic, normal inspection Eye exam: Present: normal appearance, PERRL, EOMI. Absent: scleral icterus, conjunctival injection, periorbital swelling ENT exam: Present: mucous membranes dry Neck exam: Present: normal inspection, full ROM, other (No stridor JVD or bruits). Absent: tenderness, meningismus, lymphadenopathy Respiratory exam: Present: normal lung sounds bilaterally. Absent: respiratory distress, wheezes, rales, rhonchi, stridor Cardiovascular Exam: Present: regular rate, normal rhythm, normal heart sounds. Absent: systolic murmur, diastolic murmur, rubs, gallop, clicks GI/Abdominal exam: Present: soft, normal bowel sounds. Absent: distended, tenderness, guarding, rebound, rigid Extremities exam: Present: normal inspection, full ROM, normal capillary refill. Absent: tenderness, pedal edema, joint swelling, calf tenderness Neurological exam: Present: alert, oriented X3, CN II-XII intact Skin exam: Present: warm, dry, intact, normal color. Absent: rash Results CBC & Chem 7: 01/07/24 23:30 01/07/24 23:30 Labs: Abnormal Lab Results - Last 24 Hours (Table) 01/07/24 Range/Units 14:25 Troponin I 1.750 H* (0.000-0.034) ng/mL Assessment and Plan Assessment: 1. NSTEMI -- Blood work completed in the ED reveals a troponin of 1.750 which trended up to 2.160 -- Will discontinue Eliquis and start patient on IV heparin per protocol -- Continue with aspirin, statins and beta-blockers -- Cardiology is consulted; await recommendations 2. Acute exacerbation CHF -- Currently on Lasix 40 mg IV every 12 hours; will monitor strict HAYES's, daily weights, low-salt and fluid restricted diet -- Recommend echocardiogram 3. Acute renal injury; possibility of chronic kidney disease -- Creatinine elevated at 2.53 upon admission; patient is in acute exacerbation of CHF so unable to start with IV fluid hydration -- We will avoid nephrotoxins and hypotension; consult nephrology 4. Hypertension; patient takes Hyzaar 1 tablet daily; will resume home medications 5. Permanent atrial fibrillation; patient is rate controlled on metoprolol; remains on subcu Eliquis; Eliquis currently placed on hold due to patient remaining on IV heparin 6. Hyperlipidemia; continue with Lipitor 40 mg nightly DVT prophylaxis; SCDs/IV heparin CODE STATUS; full code
--- NOTE | 2024-01-08 16:12 | P.PN ---
Subjective Progress Note Date: 01/08/24 78-year-old female brought in by EMS transfer from [facility] who presented to their facility with complaints of shortness of breath. She does have a history of A-fib which is controlled with medication congestive heart failure COPD she is on home oxygen of 1.5 L/min apparently. Also of note she was diagnosed with influenza a 2 days ago. She also has had decreased oral intake and some diarrhea last evening. She was noted in the emergency department as well as via EMS to have hypotensive episodes she was given a total of approximately 550 cc of normal saline during the treatment. She presents at this time with complaint of shortness of breath but feels much improved with respect to shortness of breath. She does states she feels somewhat dehydrated. No other current complaints. EKG reveals atrial fibrillation rate 77 QRS duration 86 QT/QTc 361/393 nonspecific anteroseptal configuration compared to the one sent from [facility] which showed A-fib similar morphology except there was a PVC Troponin is elevated at 1.750 in ER, trending up to 2.160 Patient has been evaluated by cardiology Continue medical treatment at this point since the patient is in overt failure Start the patient on Lasix 20 mg IV twice daily Start the patient on aspirin and statin No need for beta-shirley since she is bradycardic without AV josemanuel shirley agents Continue heparin IV Follow-up on the echocardiogram Objective - Vital Signs Vital signs: Vital Signs Temp 97.4 F L 01/08/24 08:00 Pulse 65 01/08/24 11:47 Resp 18 01/08/24 11:47 BP 113/50 01/08/24 12:09 Pulse Ox 94 L 01/08/24 11:43 FiO2 Intake & Output 01/07/24 01/08/24 01/08/24 18:59 06:59 18:59 Intake Total 81.333 240 Balance 81.333 240 Weight 104.326 kg 104.326 kg Intake: Intake, IV Titration 81.333 Amount Heparin Sod,Pork in 0.45% 81.333 NaCl 25,000 unit In 0.45 % NaCl 1 250ml.bag @ 9. 585 UNITS/KG/HR 10 mls/hr IV .Q24H [facility] Rx#: [id number] Oral 240 Other: # Voids 1 - Exam General appearance: alert, in no apparent distress Head exam: Present: atraumatic, normocephalic, normal inspection Eye exam: Present: normal appearance, PERRL, EOMI. Absent: scleral icterus, conjunctival injection, periorbital swelling ENT exam: Present: mucous membranes dry Neck exam: Present: normal inspection, full ROM, other (No stridor JVD or bruits). Absent: tenderness, meningismus, lymphadenopathy Respiratory exam: Present: normal lung sounds bilaterally. Absent: respiratory distress, wheezes, rales, rhonchi, stridor Cardiovascular Exam: Present: regular rate, normal rhythm, normal heart sounds. Absent: systolic murmur, diastolic murmur, rubs, gallop, clicks GI/Abdominal exam: Present: soft, normal bowel sounds. Absent: distended, tenderness, guarding, rebound, rigid Extremities exam: Present: normal inspection, full ROM, normal capillary refill. Absent: tenderness, pedal edema, joint swelling, calf tenderness Neurological exam: Present: alert, oriented X3, CN II-XII intact Skin exam: Present: warm, dry, intact, normal color. Absent: rash - Labs CBC & Chem 7: 01/07/24 23:30 01/07/24 23:30 Labs: Abnormal Lab Results - Last 24 Hours (Table) 01/07/24 01/07/24 01/07/24 Range/Units 14:25 17:50 22:25 WBC (3.8-10.6) k/uL Neutrophils # (1.3-7.7) k/uL PT (10.0-12.5) sec INR (<1.2) APTT (22.0-30.0) sec Sodium (137-145) mmol/L Chloride (98-107) mmol/L Carbon Dioxide (22-30) mmol/L BUN (7-17) mg/dL Creatinine (0.52-1.04) mg/dL Troponin I 1.750 H* 2.160 H* 2.040 H* (0.000-0.034) ng/mL Total Protein (6.3-8.2) g/dL Albumin (3.5-5.0) g/dL 01/07/24 01/07/24 01/07/24 Range/Units 23:30 23:30 23:30 WBC 14.9 H (3.8-10.6) k/uL Neutrophils # 11.7 H (1.3-7.7) k/uL PT 12.8 H (10.0-12.5) sec INR 1.2 H (<1.2) APTT (22.0-30.0) sec Sodium 131 L (137-145) mmol/L Chloride 95 L (98-107) mmol/L Carbon Dioxide 35 H (22-30) mmol/L BUN 43 H (7-17) mg/dL Creatinine 2.53 H (0.52-1.04) mg/dL Troponin I (0.000-0.034) ng/mL Total Protein 5.7 L (6.3-8.2) g/dL Albumin 3.3 L (3.5-5.0) g/dL 01/07/24 01/08/24 01/08/24 Range/Units 23:30 02:20 03:22 WBC (3.8-10.6) k/uL Neutrophils # (1.3-7.7) k/uL PT (10.0-12.5) sec INR (<1.2) APTT >200.0 H* 30.3 H (22.0-30.0) sec Sodium (137-145) mmol/L Chloride (98-107) mmol/L Carbon Dioxide (22-30) mmol/L BUN (7-17) mg/dL Creatinine (0.52-1.04) mg/dL Troponin I 1.890 H* (0.000-0.034) ng/mL Total Protein (6.3-8.2) g/dL Albumin (3.5-5.0) g/dL Assessment and Plan Assessment: 1. NSTEMI -- Blood work completed in the ED reveals a troponin of 1.750 which trended up to 2.160 -- Will discontinue Eliquis and start patient on IV heparin per protocol -- Continue with aspirin, statins and beta-blockers -- Cardiology is consulted; await recommendations 2. Acute exacerbation CHF -- Currently on Lasix 40 mg IV every 12 hours; will monitor strict HAYES's, daily weights, low-salt and fluid restricted diet -- Recommend echocardiogram 3. Acute renal injury; possibility of chronic kidney disease -- Creatinine elevated at 2.53 upon admission; patient is in acute exacerbation of CHF so unable to start with IV fluid hydration -- We will avoid nephrotoxins and hypotension; consult nephrology 4. Hypertension; patient takes Hyzaar 1 tablet daily; will resume home medications 5. Permanent atrial fibrillation; patient is rate controlled on metoprolol; remains on subcu Eliquis; Eliquis currently placed on hold due to patient remaining on IV heparin 6. Hyperlipidemia; continue with Lipitor 40 mg nightly DVT prophylaxis; SCDs/IV heparin CODE STATUS; full code
--- NOTE | 2024-01-08 19:25 | CA ---
Transthoracic Echo Report Name: Renuka Wolf Age: 78 Gender: F : 1945 Exam Date: 01/08/2024 15:27 Exam Location: [facility] Ht (in): 60 Wt (lb): 230 Ordering Physician: Hebert Montoya MD Attending/Referring Phys: Video Control Operator Coby Myles RDCS Procedure CPT: Indications: nstemi Cardiac Hx: Technical Quality: Very technically difficult study Contrast 1: Total Dose (mL): Contrast 2: Total Dose (mL): MEASUREMENTS (Male / Female) Normal Values 2D ECHO LV Diastolic Diameter PLAX 3.1 cm 4.2 - 5.9 / 3.9 - 5.3 cm LV Systolic Diameter PLAX 2.5 cm IVS Diastolic Thickness 1.2 cm 0.6 - 1.0 / 0.6 - 0.9 cm LVPW Diastolic Thickness 1.2 cm 0.6 - 1.0 / 0.6 - 0.9 cm LV Relative Wall Thickness 0.8 DOPPLER AV Peak Velocity 90.4 cm/s AV Peak Gradient 3.3 mmHg AV Mean Velocity 59.5 cm/s AV Mean Gradient 1.6 mmHg AV Velocity Time Integral 12.9 cm LVOT Peak Velocity 89.0 cm/s LVOT Peak Gradient 3.2 mmHg LVOT Velocity Time Integral 18.7 cm Mitral E Point Velocity 110.5 cm/s Mitral A Point Velocity 24.2 cm/s Mitral E to A Ratio 4.6 MV Deceleration Time 217.0 ms TR Peak Velocity 167.2 cm/s TR Peak Gradient 11.2 mmHg FINDINGS Left Ventricle Mildly increased septal wall thickness. Mildly increased posterior wall thickness. Left ventricular ejection fraction is estimated at 45-50 %. Right Ventricle Unable to estimate the right ventricular systolic pressure. Right Atrium Moderate right atrial dilatation. Left Atrium Moderate left atrial dilatation. Mitral Valve No mitral regurgitation. Aortic Valve Aortic valve not well visualized. Tricuspid Valve [id number] tricuspid regurgitation. Pulmonic Valve No pulmonic regurgitation. Pericardium No pericardial effusion. Aorta Aortic root and proximal ascending aorta not well visualized. CONCLUSIONS Limited study, previous echo recorded on 11/03/2022. Mildly impaired LV function with EF between 45-50% The right ventricle appears to be dilated Overall technically difficult study Previewed by: Dr. Reddy Garcia MD (Electronically Signed) Final Date: 08 January 2024 19:25
[2024-01-09 08:51] LABS: Basophils % (A) 0 %; Eosinophils # (A) 0.1 k/uL (0-0.7); Eosinophils % (A) 1 %; HGB 13.1 gm/dL (11.4-16.0); Lymphocytes # (A) 1.4 k/uL (1.0-4.8); Lymphocytes % (A) 11 %; MCH 31.7 pg (25.0-35.0); MCHC 32.8 g/dL (31.0-37.0); MCV 96.6 fL (80.0-100.0); Mean Platelet Volume 7.9; Monocytes # (A) 0.8 k/uL (0-1.0); Monocytes % (A) 6 %; Neutrophils # (A) 10.2 k/uL (1.3-7.7); Neutrophils % (A) 81 %; Platelet Count 242 k/uL (150-450); RBC 4.14 m/uL (3.80-5.40); RDW 13.3 % (11.5-15.5); WBC 12.6 k/uL (3.8-10.6)
[2024-01-09 09:12] LABS: African American GFR (CKD) 28 (>60 ml/min/1.73 sqM); Anion Gap 4 mmol/L; Blood Urea Nitrogen 55 mg/dL (7-17); Calcium 9.3 mg/dL (8.4-10.2); Carbon Dioxide 39 mmol/L (22-30); Chloride 93 mmol/L (98-107); Glucose 89 mg/dL (74-99); Non-African American GFR(CKD) 24 (>60 ml/min/1.73 sqM); Potassium 3.5 mmol/L (3.5-5.1); Sodium 136 mmol/L (137-145)
--- NOTE | 2024-01-09 11:09 | P.NPCON ---
History of Present Illness - Reason for Consult acute renal failure - History of Present Illness Patient is a 78-year-old female with history of A. fib, COPD and hypertension who presented to [facility] for shortness of breath. Patient has been subsequently transferred to [facility]. Patient tested positive for influenza A. History of decreased oral intake and increased weakness over the last 2-3 days. Patient reported diarrhea as well. Significant hypotension documented. Status post fluid bolus. Blood pressure here has been in the 90s to low 100s. Patient was maintained on angiotensin receptor blockers and diuretics at home prior to admission. Patient is currently maintained on IV Lasix due to mild volume overload. Patient ruled in for acute coronary syndrome and is being followed by cardiology Serum creatinine 2.5 on admission and decreased to 1.9. Previous creatinine 0.95 on 11/04/2023. Patient has been voiding. Review of Systems As per HPI Past Medical History Past Medical History: Atrial Fibrillation, COPD, Hypertension Additional Past Medical History / Comment(s): COPD, hypertension, secondary pulmonary hypertension, chronic hypoxic respiratory failure, chronic atrial fibrillation, hyperlipidemia, obstructive sleep apnea, NSTEMI (01/07/24) History of Any Multi-Drug Resistant Organisms: None Reported Additional Past Surgical History / Comment(s): Right lung lung lobectomy, hernia repair and the patient has a large anterior abdominal wall incision, hysterectomy, knee surgery, cholecystectomy Past Anesthesia/Blood Transfusion Reactions: No Reported Reaction Past Psychological History: No Psychological Hx Reported Smoking Status: Never smoker Past Alcohol Use History: Rare Past Drug Use History: None Reported - Past Family History Mother Family Medical History: Cancer Father Family Medical History: Coronary Artery Disease (CAD) Medications and Allergies Home Medications Medication Instructions Recorded Confirmed Type Apixaban [Eliquis] 5 mg PO BID 07/13/19 01/07/24 History Albuterol Nebulized [Ventolin 2.5 mg INHALATION RT-TID 07/26/20 01/07/24 History Nebulized] Losartan-Hctz 50-12.5 mg [Hyzaar 1 tab PO DAILY 11/01/22 01/07/24 History 50-12.5] Acetaminophen Tab [Tylenol] 650 mg PO Q6HR PRN tab 04/19/23 01/07/24 Rx Ondansetron [Zofran] 4 mg PO Q4H PRN 01/07/24 01/07/24 History Allergies Allergy/AdvReac Type Severity Reaction Status Date / Time No Known Allergies Allergy Verified 01/07/24 20:15 Physical Exam Vitals: Vital Signs Temp Pulse Pulse Resp BP Pulse Ox 01/09/24 08:34 68 01/09/24 08:20 68 01/09/24 08:00 98.1 F 84 18 99/60 98 01/09/24 04:00 98.4 F 68 18 136/74 96 01/09/24 02:00 70 18 01/09/24 00:00 70 18 122/66 95 01/08/24 20:35 87 01/08/24 20:27 82 01/08/24 20:00 97.9 F 78 20 124/62 97 01/08/24 16:00 89 16 101/48 96 01/08/24 15:18 90 16 01/08/24 15:11 89 16 01/08/24 12:09 113/50 01/08/24 11:47 65 18 01/08/24 11:43 70 16 95/45 94 L 01/08/24 11:39 67 16 Intake and Output 01/08/24 01/09/24 01/09/24 22:59 06:59 14:59 Intake Total 240 Output Total 500 250 200 Balance -260 -250 -200 Intake: Oral 240 Output: Urine 500 250 200 Other: # Bowel Movements 1 On examination patient is comfortable awake not in any acute distress Examination of the heart S1 and S2 Examination of the lungs bilateral breath sounds are heard Abdomen is soft nontender Examination of lower extremity shows trace edema Patient is moving all 4 extremities. Results - Lab Results Most recent lab results Calcium 9.3 mg/dL (8.4-10.2) 01/09/24 07:30 Magnesium 1.7 mg/dL (1.6-2.3) 01/07/24 23:30 01/09/24 07:30 01/09/24 07:30 Assessment and Plan Assessment: 1. Acute kidney injury secondary to hypotension, ATN currently nonoliguric. Rule out urine retention. Renal function is improving. Patient is currently being diuresed. Check UA 2. Influenza A infection 3. Mild volume overload 4. Acute coronary syndrome being followed by cardiology 5. Permanent A. fib with controlled ventricular response 6. Hypokalemia being replaced Plan: Continue current dose of IV Lasix. Check UA Check ultrasound of the kidneys Repeat labs in a.m. Continue to hold angiotensin receptor blockers as blood pressure remains low. Next Thank you for the consultation. We will continue to follow the patient with you during her hospitalization.
[2024-01-09] MEDS: APIXABAN 5 MG TAB PO SCH (12:19)
[2024-01-09 12:22] LABS: Appearance,Urine Clear (Clear); Bacteria,Urine Rare /hpf; Bilirubin,Urine Negative (Negative); Blood,Urine Negative (Negative); Color,Urine Colorless; Glucose,Urine (UA) Negative (Negative); Ketones,Urine Negative (Negative); Leukocyte Esterase,Urine Trace (Negative); Mucus,Urine Rare /hpf; Nitrite,Urine Negative (Negative); Protein,Urine Negative (Negative); Specific Gravity,Urine 1.008 (1.001-1.035); Squamous Epithelial Cell,Urine <1 /hpf (0-4); Urobilinogen,Urine <2.0 mg/dL (<2.0); WBC,Urine <1 /hpf (0-5)
[2024-01-09] MEDS ORDERED: ONDANSETRON 4 MG TAB PO PRN (13:56)
--- NOTE | 2024-01-09 14:06 | P.PN ---
Subjective HISTORY OF PRESENT ILLNESS: The patient is a 78-year-old female patient with a past medical history significant for permanent atrial fibrillation maintaining on oral anticoagulation as well as hypertension and dyslipidemia and overweight and chr onic hypoxic respiratory failure on oxygen continuously. She was brought from [facility] for further evaluation. She presented with abdominal discomfort and she was diagnosed with viral infection recently on the stomach. For some reason she ended having blood work including troponin that came in to be abnormal and seems to be consistent with acute coronary syndrome. The patient denies any chest pain or chest discomfort and denies any increasing in the shortness of breath above the baseline. No dizziness or lightheadedness and no feeling of heart racing or fluttering and no presyncope or syncope. She underwent an EKG and that showed atrial fibrillation with diffuse nonspecific ST and T wave abnormalities unchanged compared to before. The cardiac enzymes as described above with abnormal troponin. NT proBNP came to be elevated at 7000. The chest x-ray did not show any acute abnormalities. Kidney function appears to be within normal limits. Electr olytes are within normal limits. The rest of the workup came in to be unremarkable. On examination she is in mild failure. She does have diminished breathing sounds bilaterally and she was sitting upright in bed with bilateral lower extremities edema noted an irregular rhythm with a systolic murmur at the right upper sternal border 01/09/2024 Patient examined this morning at bedside. Patient currently denies chest pain or pressure. She denies shortness of breath. She remains on IV diuretics. Patient is also maintained on IV heparin. Echocardiogram completed revealing ejection fraction 45 to 50% with mild to moderate TR. PHYSICAL EXAM: VITAL SIGNS: Reviewed. GENERAL: Well-developed in no acute distress. NECK: Supple. No JVD or thyromegaly LUNGS: Respirations even and unlabored. Lungs essentially clear to auscultation bilaterally. HEART: Regular rate and rhythm. S1 and S2 heard. EXTREMITIES: Normal range of motion. No clubbing or cyanosis. Peripheral pulses intact. Trace bilateral lower extremity edema ASSESSMENT: Acute influenza A Abdominal pain Leukocytosis Non-STEMI Permanent atrial fibrillation with controlled ventricular rate Acute kidney injury, creatinine 2.53 on admission Acute heart failure with mildly reduced EF, 45 to 50% Hypertension Hyperlipidemia COPD Chronic hypoxic respiratory failure PLAN: Discontinue IV heparin. Begin Eliquis 5 mg twice a day Continue IV diuretics for an additional 24 hours Daily weights, accurate intake and output, and monitoring of kidney function Hold losartanhydrochlorothiazide secondary to ALEXUS No plans for cardiac catheterization at this time. We will continue with medical management. Further recommendations pending patient course Patient to follow-up postdischarge with Dr. Garcia Nurse practitioner note has been reviewed by physician. Signing provider agrees with the documented findings, assessment, and plan of care documented by GRAPPLE SKIDDER OPERATOR as a scribe. Objective - Vital Signs Vital signs: Vital Signs Temp 98.1 F 01/09/24 12:00 Pulse 70 01/09/24 12:01 Resp 18 01/09/24 13:19 BP 108/71 01/09/24 12:00 Pulse Ox 97 01/09/24 12:00 FiO2 Intake & Output 01/08/24 01/09/24 01/09/24 18:59 06:59 18:59 Intake Total 359.693 240 Output Total 500 250 500 Balance -140.307 -10 -500 Weight 104.326 kg Intake: Intake, IV Titration 119.693 Amount Heparin Sod,Pork in 0.45% 119.693 NaCl 25,000 unit In 0.45 % NaCl 1 250ml.bag @ 9. 585 UNITS/KG/HR 10 mls/hr IV .Q24H [facility] Rx#: [id number] Oral 240 240 Output: Urine 500 250 500 Other: # Voids 1 # Bowel Movements 1 - Labs CBC & Chem 7: 01/09/24 07:30 01/09/24 07:30 Labs: Abnormal Lab Results - Last 24 Hours (Table) 01/08/24 01/09/24 01/09/24 Range/Units 20:20 07:30 07:30 WBC 12.6 H (3.8-10.6) k/uL Neutrophils # 10.2 H (1.3-7.7) k/uL APTT 47.6 H (22.0-30.0) sec Sodium 136 L (137-145) mmol/L Chloride 93 L (98-107) mmol/L Carbon Dioxide 39 H (22-30) mmol/L BUN 55 H (7-17) mg/dL Creatinine 1.93 H (0.52-1.04) mg/dL Ur Leukocyte Esterase (Negative) Urine Bacteria (None) /hpf Urine Mucus (None) /hpf 01/09/24 01/09/24 Range/Units 07:30 11:40 WBC (3.8-10.6) k/uL Neutrophils # (1.3-7.7) k/uL APTT 36.0 H (22.0-30.0) sec Sodium (137-145) mmol/L Chloride (98-107) mmol/L Carbon Dioxide (22-30) mmol/L BUN (7-17) mg/dL Creatinine (0.52-1.04) mg/dL Ur Leukocyte Esterase Trace H (Negative) Urine Bacteria Rare H (None) /hpf Urine Mucus Rare H (None) /hpf
--- NOTE | 2024-01-09 14:08 | US ---
EXAMINATION TYPE: US kidneys/renal and bladder DATE OF EXAM: 01/09/2024 COMPARISON: NONE CLINICAL INDICATION: Female, 78 years old with history of alexus; ALEXUS EXAM MEASUREMENTS: Right Kidney: 8.8x3.8x4.5 cm Left Kidney: 8.2x5.0x5.4 cm Right Kidney: No hydronephrosis or masses seen Left Kidney: No hydronephrosis or masses seen Bladder: wnl Bilateral Jets seen: no There is no evidence for hydronephrosis at this point in time. No nephrolithiasis is seen. No nitza s are identified. The urinary bladder is anechoic. Bilateral ureteral jets are seen. exam limited by bowel and body habitus IMPRESSION: Limited examination. No discrete abnormality seen.
--- NOTE | 2024-01-09 15:15 | XR ---
EXAMINATION TYPE: XR chest 1V portable DATE OF EXAM: 01/09/2024 HISTORY: Shortness of breath. COMPARISON: None. TECHNIQUE: Single view of the chest is submitted. FINDINGS: Demonstrated are scattered senescent parenchymal change. There is no evidence for focal infiltrate. The heart is stable. Hilar and mediastinal structures are within normal limits. Degenerative changes are seen of the dorsal spine. IMPRESSION: 1. Chronic changes without evidence for acute pulmonary disease.
--- NOTE | 2024-01-10 06:37 | PN ---
PROGRESS NOTE DATE OF SERVICE: 01/09/2024 SUBJECTIVE: This 78-year-old woman was admitted with acute izl-RX-obqvcnc-elevation myocardial infarction, also had CHF acute exacerbation. Patient was closely monitored. No chest pain, no palpitations. No fever. OBJECTIVE: VITAL SIGNS: Pulse is 67, blood pressure 108/70, respirations 18. CHEST: Few scattered rhonchi. ABDOMEN: Soft. NERVOUS SYSTEM: No focal deficits. LABORATORY DATA: Reviewed and troponin is 1.89. ASSESSMENT: 1. Acute agc-RB-zntcuvm-elevation myocardial infarction. 2. CHF acute exacerbation. 3. Acute renal injury. 4. Hypertension. 5. Multiple complex medical issues. RECOMMENDATIONS: Recommended to continue current management continue symptomatic treatment. Closely follow with Nephrology, Cardiology. A 2D echo showed ejection fraction about 40% to 50%. We will continue to monitor. Chest x-ray was reviewed. We will repeat a chest x- ray. MMODL / IJN: [id number] /
[2024-01-10] MEDS: ACETAMINOPHEN TAB 325 MG TAB PO PRN (10:06)
[2024-01-10 10:18] LABS: Basophils % (A) 0 %; Eosinophils # (A) 0.1 k/uL (0-0.7); Eosinophils % (A) 1 %; HCT 39.1 % (34.0-46.0); HGB 12.5 gm/dL (11.4-16.0); Lymphocytes # (A) 1.7 k/uL (1.0-4.8); Lymphocytes % (A) 14 %; MCH 30.8 pg (25.0-35.0); MCHC 31.9 g/dL (31.0-37.0); MCV 96.4 fL (80.0-100.0); Mean Platelet Volume 7.4; Monocytes # (A) 0.5 k/uL (0-1.0); Monocytes % (A) 5 %; Neutrophils # (A) 9.7 k/uL (1.3-7.7); Neutrophils % (A) 80 %; Platelet Count 258 k/uL (150-450); RBC 4.05 m/uL (3.80-5.40); RDW 12.9 % (11.5-15.5); WBC 12.1 k/uL (3.8-10.6)
[2024-01-10 10:37] LABS: African American GFR (CKD) 36 (>60 ml/min/1.73 sqM); Anion Gap 5 mmol/L; Blood Urea Nitrogen 50 mg/dL (7-17); Calcium 9.4 mg/dL (8.4-10.2); Carbon Dioxide 38 mmol/L (22-30); Chloride 95 mmol/L (98-107); Glucose 125 mg/dL (74-99); Non-African American GFR(CKD) 31 (>60 ml/min/1.73 sqM); Potassium 3.5 mmol/L (3.5-5.1); Sodium 138 mmol/L (137-145)
--- NOTE | 2024-01-10 12:07 | P.PN ---
Subjective Patient is seen for follow-up for acute kidney injury. Tested positive for influenza A. Patient was maintained on IV Lasix which was discontinued this morning. No complaints of chest pains or shortness of breath. Creatinine decreased to 1.5 today Objective - Vital Signs Vital signs: Vital Signs Temp 97.0 F L 01/10/24 08:00 Pulse 80 01/10/24 09:05 Resp 18 01/10/24 08:00 BP 108/55 01/10/24 08:00 Pulse Ox 93 L 01/10/24 08:00 FiO2 Intake & Output 01/09/24 01/10/24 01/10/24 18:59 06:59 18:59 Intake Total 120 120 118 Output Total 500 Balance -380 120 118 Intake: Oral 120 120 118 Output: Urine 500 - Exam On examination patient is comfortable awake not in any acute distress Examination of the heart S1 and S2 Examination of the lungs bilateral breath sounds are heard Abdomen is soft nontender Examination of lower extremity shows trace edema Patient is moving all 4 extremities. - Labs CBC & Chem 7: 01/10/24 09:22 01/10/24 09:22 Labs: Abnormal Lab Results - Last 24 Hours (Table) 01/09/24 01/10/24 01/10/24 Range/Units 11:40 09:22 09:22 WBC 12.1 H (3.8-10.6) k/uL Neutrophils # 9.7 H (1.3-7.7) k/uL Chloride 95 L (98-107) mmol/L Carbon Dioxide 38 H (22-30) mmol/L BUN 50 H (7-17) mg/dL Creatinine 1.58 H (0.52-1.04) mg/dL Glucose 125 H (74-99) mg/dL Ur Leukocyte Esterase Trace H (Negative) Urine Bacteria Rare H (None) /hpf Urine Mucus Rare H (None) /hpf Assessment and Plan Assessment: 1. Acute kidney injury secondary to hypotension, ATN currently nonoliguric. Renal function is improving. Status post diuresis. Lasix discontinued today. UA is quite benign. Ultrasound showed no obstructive uropathy 2. Influenza A infection 3. Mild volume overload, improved 4. Acute coronary syndrome being followed by cardiology 5. Permanent A. fib with controlled ventricular response 6. Hypokalemia being replaced Plan: Encourage increase oral intake Continue potassium supplementation repeat labs in a.m.
--- NOTE | 2024-01-10 12:27 | P.PN ---
Subjective HISTORY OF PRESENT ILLNESS: The patient is a 78-year-old female patient with a past medical history significant for permanent atrial fibrillation maintaining on oral anticoagulation as well as hypertension and dyslipidemia and overweight and chr onic hypoxic respiratory failure on oxygen continuously. She was brought from [facility] for further evaluation. She presented with abdominal discomfort and she was diagnosed with viral infection recently on the stomach. For some reason she ended having blood work including troponin that came in to be abnormal and seems to be consistent with acute coronary syndrome. The patient denies any chest pain or chest discomfort and denies any increasing in the shortness of breath above the baseline. No dizziness or lightheadedness and no feeling of heart racing or fluttering and no presyncope or syncope. She underwent an EKG and that showed atrial fibrillation with diffuse nonspecific ST and T wave abnormalities unchanged compared to before. The cardiac enzymes as described above with abnormal troponin. NT proBNP came to be elevated at 7000. The chest x-ray did not show any acute abnormalities. Kidney function appears to be within normal limits. Electr olytes are within normal limits. The rest of the workup came in to be unremarkable. On examination she is in mild failure. She does have diminished breathing sounds bilaterally and she was sitting upright in bed with bilateral lower extremities edema noted an irregular rhythm with a systolic murmur at the right upper sternal border 01/09/2024 Patient examined this morning at bedside. Patient currently denies chest pain or pressure. She denies shortness of breath. She remains on IV diuretics. Patient is also maintained on IV heparin. Echocardiogram completed revealing ejection fraction 45 to 50% with mild to moderate TR. 01/10/2024 Patient examined this morning at the bedside. Patient currently denies chest pain or pressure. She denies shortness of breath. She remains on IV Lasix. Vital signs are stable. BUN 50. Creatinine 1.58. PHYSICAL EXAM: VITAL SIGNS: Reviewed. GENERAL: Well-developed in no acute distress. NECK: Supple. No JVD or thyromegaly LUNGS: Respirations even and unlabored. Lungs essentially clear to auscultation bilaterally. HEART: Regular rate and rhythm. S1 and S2 heard. EXTREMITIES: Normal range of motion. No clubbing or cyanosis. Peripheral pulses intact. Trace bilateral lower extremity edema ASSESSMENT: Acute influenza A Abdominal pain Leukocytosis Non-STEMI Permanent atrial fibrillation with controlled ventricular rate Acute kidney injury, creatinine 2.53 on admission Acute heart failure with mildly reduced EF, 45 to 50% Hypertension Hyperlipidemia COPD Chronic hypoxic respiratory failure PLAN: Continue Eliquis 5 mg twice a day Discontinue IV Lasix. No need for oral diuretics per Dr. Gerardo Daily weights, accurate intake and output, and monitoring of kidney function Hold losartanhydrochlorothiazide secondary to ALEXUS No plans for cardiac catheterization at this time. We will continue with medical management. Further recommendations pending patient course Patient to follow-up postdischarge with Dr. Garcia Nurse practitioner note has been reviewed by physician. Signing provider agrees with the documented findings, assessment, and plan of care documented by UNDERWRITING CONSULTANT as a scribe. Objective - Vital Signs Vital signs: Vital Signs Temp 97.0 F L 01/10/24 08:00 Pulse 82 01/10/24 12:23 Resp 18 01/10/24 08:00 BP 108/55 01/10/24 08:00 Pulse Ox 93 L 01/10/24 08:00 FiO2 Intake & Output 01/09/24 01/10/24 01/10/24 18:59 06:59 18:59 Intake Total 120 120 118 Output Total 500 Balance -380 120 118 Intake: Oral 120 120 118 Output: Urine 500 - Labs CBC & Chem 7: 01/10/24 09:22 01/10/24 09:22 Labs: Abnormal Lab Results - Last 24 Hours (Table) 01/10/24 01/10/24 Range/Units 09:22 09:22 WBC 12.1 H (3.8-10.6) k/uL Neutrophils # 9.7 H (1.3-7.7) k/uL Chloride 95 L (98-107) mmol/L Carbon Dioxide 38 H (22-30) mmol/L BUN 50 H (7-17) mg/dL Creatinine 1.58 H (0.52-1.04) mg/dL Glucose 125 H (74-99) mg/dL
--- NOTE | 2024-01-10 23:20 | PN ---
PROGRESS NOTE DATE OF SERVICE: 01/10/2024 SUBJECTIVE: This is a 78-year-old woman, who was admitted with acute cvs-ZS-bihuhpg-elevation myocardial infarction, CHF acute exacerbation, is being closely monitored. No chest pain. No palpitation. The most recent chest x-ray showed some improvement. OBJECTIVE: VITAL SIGNS: Pulse is 80, blood pressure is 108/52, respirations 18. CHEST: A few scattered rhonchi and crackles. ABDOMEN: Soft. NERVOUS SYSTEM: No focal deficits. LABORATORY DATA: Reviewed. Creatinine 1.58. ASSESSMENT: 1. Acute uxk-BM-zjtcpcs elevation myocardial infarction. 2. Congestive heart failure acute exacerbation. 3. Acute renal injury. 4. Hypertension. 5. Multiple complex medical issues. RECOMMENDATIONS: Recommend to continue current medications. Continue symptomatic treatment. Increase ambulation. Continue the bronchodilators. The patient is off diuretics. I recommend repeat labs tomorrow. Possible discharge in the next 24 to 48 hours. MMODL / IJN: [id number] /
[2024-01-11 05:20] VITALS: RESP 18
[2024-01-11 09:07] LABS: Basophils % (A) 0 %; Eosinophils # (A) 0.2 k/uL (0-0.7); Eosinophils % (A) 2 %; HCT 38.8 % (34.0-46.0); HGB 12.6 gm/dL (11.4-16.0); Lymphocytes # (A) 1.4 k/uL (1.0-4.8); Lymphocytes % (A) 14 %; MCH 31.6 pg (25.0-35.0); MCHC 32.5 g/dL (31.0-37.0); MCV 97.1 fL (80.0-100.0); Mean Platelet Volume 7.8; Monocytes # (A) 0.7 k/uL (0-1.0); Monocytes % (A) 7 %; Neutrophils # (A) 7.7 k/uL (1.3-7.7); Neutrophils % (A) 76 %; Platelet Count 270 k/uL (150-450); RDW 13.1 % (11.5-15.5); WBC 10.1 k/uL (3.8-10.6)
[2024-01-11 09:39] LABS: African American GFR (CKD) 48 (>60 ml/min/1.73 sqM); Anion Gap 4 mmol/L; Blood Urea Nitrogen 42 mg/dL (7-17); Calcium 9.6 mg/dL (8.4-10.2); Carbon Dioxide 38 mmol/L (22-30); Chloride 96 mmol/L (98-107); Glucose 104 mg/dL (74-99); Non-African American GFR(CKD) 42 (>60 ml/min/1.73 sqM); Potassium 3.8 mmol/L (3.5-5.1); Sodium 138 mmol/L (137-145)
[2024-01-11 11:38] VITALS: TEMP 97.9
--- NOTE | 2024-01-11 12:39 | P.PN ---
Subjective Patient is seen for follow-up for acute kidney injury. Tested positive for influenza A. Status post diuresis on initial admission. Currently off of diuretics.. No complaints of chest pains or shortness of breath. Creatinine decreased to 1.2 today No significant complaints. Objective - Vital Signs Vital signs: Vital Signs Temp 97.9 F 01/11/24 08:00 Pulse 76 01/11/24 10:04 Resp 18 01/11/24 08:00 BP 114/59 01/11/24 08:00 Pulse Ox 95 01/11/24 08:00 FiO2 Intake & Output 01/10/24 01/11/24 01/11/24 18:59 06:59 18:59 Intake Total 538 110 Balance 538 110 Intake: Oral 538 110 Other: # Voids 1 - Exam On examination patient is comfortable awake not in any acute distress Examination of the heart S1 and S2 Examination of the lungs bilateral breath sounds are heard Abdomen is soft nontender Examination of lower extremity shows trace edema Patient is moving all 4 extremities. - Labs CBC & Chem 7: 01/11/24 07:58 01/11/24 07:58 Labs: Abnormal Lab Results - Last 24 Hours (Table) 01/11/24 Range/Units 07:58 Chloride 96 L (98-107) mmol/L Carbon Dioxide 38 H (22-30) mmol/L BUN 42 H (7-17) mg/dL Creatinine 1.23 H (0.52-1.04) mg/dL Glucose 104 H (74-99) mg/dL Assessment and Plan Assessment: 1. Acute kidney injury secondary to hypotension, ATN currently nonoliguric. Renal function is improving. Status post diuresis. Lasix discontinued. UA is quite benign. Ultrasound showed no obstructive uropathy 2. Influenza A infection 3. Mild volume overload, improved 4. Acute coronary syndrome being followed by cardiology 5. Permanent A. fib with controlled ventricular response 6. Hypokalemia being replaced Plan: Encourage increase oral intake Continue potassium supplementation Stable for discharge from nephrology standpoint Continue to hold PJ inhibitor's as blood pressure remains on the lower side.
--- NOTE | 2024-01-11 12:41 | P.PN ---
Subjective HISTORY OF PRESENT ILLNESS: The patient is a 78-year-old female patient with a past medical history significant for permanent atrial fibrillation maintaining on oral anticoagulation as well as hypertension and dyslipidemia and overweight and chr onic hypoxic respiratory failure on oxygen continuously. She was brought from [facility] for further evaluation. She presented with abdominal discomfort and she was diagnosed with viral infection recently on the stomach. For some reason she ended having blood work including troponin that came in to be abnormal and seems to be consistent with acute coronary syndrome. The patient denies any chest pain or chest discomfort and denies any increasing in the shortness of breath above the baseline. No dizziness or lightheadedness and no feeling of heart racing or fluttering and no presyncope or syncope. She underwent an EKG and that showed atrial fibrillation with diffuse nonspecific ST and T wave abnormalities unchanged compared to before. The cardiac enzymes as described above with abnormal troponin. NT proBNP came to be elevated at 7000. The chest x-ray did not show any acute abnormalities. Kidney function appears to be within normal limits. Electr olytes are within normal limits. The rest of the workup came in to be unremarkable. On examination she is in mild failure. She does have diminished breathing sounds bilaterally and she was sitting upright in bed with bilateral lower extremities edema noted an irregular rhythm with a systolic murmur at the right upper sternal border 01/09/2024 Patient examined this morning at bedside. Patient currently denies chest pain or pressure. She denies shortness of breath. She remains on IV diuretics. Patient is also maintained on IV heparin. Echocardiogram completed revealing ejection fraction 45 to 50% with mild to moderate TR. 01/10/2024 Patient examined this morning at the bedside. Patient currently denies chest pain or pressure. She denies shortness of breath. She remains on IV Lasix. Vital signs are stable. BUN 50. Creatinine 1.58. 01/11/2024 Patient examined this morning at the bedside. Patient currently denies chest pain or pressure. She denies shortness of breath. Kidney function has improved. Creatinine 1.23 today. Vital signs are stable. PHYSICAL EXAM: VITAL SIGNS: Reviewed. GENERAL: Well-developed in no acute distress. NECK: Supple. No JVD or thyromegaly LUNGS: Respirations even and unlabored. Lungs essentially clear to auscultation bilaterally. HEART: Irregular rate and rhythm. S1 and S2 heard. EXTREMITIES: Normal range of motion. No clubbing or cyanosis. Peripheral pulses intact. Trace bilateral lower extremity edema ASSESSMENT: Acute influenza A Abdominal pain Leukocytosis Non-STEMI Permanent atrial fibrillation with controlled ventricular rate Acute kidney injury, creatinine 2.53 on admission Acute heart failure with mildly reduced EF, 45 to 50% Hypertension Hyperlipidemia COPD Chronic hypoxic respiratory failure PLAN: Continue Eliquis 5 mg twice a day No need for oral diuretics per Dr. Gerardo Daily weights, accurate intake and output, and monitoring of kidney function Add losartan 25 mg daily No plans for cardiac catheterization at this time. We will continue with medical management. Further workup to be determined on an outpatient basis. Patient is currently stable from a cardiac perspective Patient to follow-up postdischarge with Dr. Garcia We will follow on an as needed basis. Please call with questions or concerns. Nurse practitioner note has been reviewed by physician. Signing provider agrees with the documented findings, assessment, and plan of care documented by RECORDIST as a scribe. Objective - Vital Signs Vital signs: Vital Signs Temp 97.9 F 01/11/24 08:00 Pulse 76 01/11/24 10:04 Resp 18 01/11/24 08:00 BP 114/59 01/11/24 08:00 Pulse Ox 95 01/11/24 08:00 FiO2 Intake & Output 01/10/24 01/11/24 01/11/24 18:59 06:59 18:59 Intake Total 538 110 Balance 538 110 Intake: Oral 538 110 Other: # Voids 1 - Labs CBC & Chem 7: 01/11/24 07:58 01/11/24 07:58 Labs: Abnormal Lab Results - Last 24 Hours (Table) 01/11/24 Range/Units 07:58 Chloride 96 L (98-107) mmol/L Carbon Dioxide 38 H (22-30) mmol/L BUN 42 H (7-17) mg/dL Creatinine 1.23 H (0.52-1.04) mg/dL Glucose 104 H (74-99) mg/dL
[2024-01-11 13:22] VITALS: BP 127/62; PULSE 76
[2024-01-12] MEDS ORDERED: LOSARTAN 25 MG TAB PO SCH (09:00)
--- NOTE | 2024-01-12 20:52 | CDI ---
Documentation Clarification Form Date: 01/12/2024 08:33:59 PM From: Kate Maharaj Phone: Admit Date: 01/07/2024 05:32:00 PM Patient Name: Renuka Wolf Visit Number: [id number] Discharge Date: 01/11/2024 02:51:00 PM ATTENTION: The Clinical Documentation Specialists (CDI) and [facility] Coding Staff appreciate your assistance in clarifying documentation. Please respond to the clarification below the line at the bottom and electronically sign. The CDI & [facility] Coding staff will review the response and follow-up if needed. Please note: Queries are made part of the Legal Health Record. If you have any questions, please contact the author of this message via ITS. Dr. Osvaldo Bal Possibility ofchronic kidney disease is documented per H&P and Progress 01/07. Additional clarification regarding the stage of CKD is requested. History/Risk Factors: 78yo F, influenzaA,NSTEMI, perm A fib, ALEXUS, ASHF, HTN, HLD, COPD, CHRF, TONYA Clinical Indicators: AfAm: 3/ 28 3/5 36 3/ 48 Non: 01/08 24 / 31 / 42 Cr: 01/08 1. 93 / 1. 58 /6 1. 23 BUN: 01/08 55 / 50 / 42 Treatment: Creatinineelevatedat 2. 53 upon admission; patient is in acute exacerbation ofCHFso unable to start with IV fluid hydration -- Wewill avoidnephrotoxins andhypotension; consult nephrology Nephrology Consult: Acute kidney injurysecondary tohypotension,ATNcurrently nonoliguric. Rule outurine retention. Renal function is improving. Patient is currently being diuresed. Check UA. Please clarify the stage of the CKD, if known: [ ] CKD Stage 3b [ ] CKD Stage 4 [ ] CKD ruled out [ ] Other, please specify [ ] Unable to determine Reference: National Kid[employer] Stage 1 eGFR = 90 and kidney damage for =3 months Stage 2 eGFR 60-89 and kidney damage for =3 months Stage 3a eGFR 45-59 and kidney damage for =3 months Stage 3b eGFR 30-44 and kidney damage for =3 months Stage 4 eGFR 15-29 r and kidney damage for =3 months Stage 5 eGFR <15 and kidney damage for =3 months (Template last revised: November 2023) [facility]
--- NOTE | 2024-01-15 16:48 | P.DS ---
Providers Date of admission: 01/07/24 17:32 Expected date of discharge: 01/11/24 Attending physician: Osvaldo Bal MD Consults: 01/08/24 12:29 Consult Physician Urgent Consulting Provider: Humaira Arechiga Consult Reason/Comments: ALEXUS/CHF exacerbation Do you want consulting provider notified?: Yes Primary care physician: Kimberly Molina Hospital Course: Final diagnosis -NSTEMI -Acute exacerbation CHF, diastolic dysfunction -Acute influenza A infection -Acute renal injury, acute tubular necrosis, improving -Possible chronic kidney disease stage IIIb -Hypertension -Permanent atrial fibrillation -Hyperlipidemia Discharge disposition Patient is being discharged in a stable condition with guarded prognosis to home. Patient will follow-up with Dr. Molina in the outpatient setting upon discharge. Patient is to continue with current medications and close outpatient follow-up with cardiology as scheduled. Total time taken is greater than 35 minutes. Hospital course This is a 78-year-old female who was recently admitted increased shortness of breath with CHF exacerbation. Patient being followed by cardiology. Patient showing improvements and has been cleared by cardiology with adjustments to medications made recommending close outpatient follow-up with Dr. Gerardo in the outpatient setting. Recommend close outpatient follow-up with nephrology as well and close monitoring of kidney functions with diuresis as patient was also known to have ALEXUS. Please refer to cardiology notes for further HPI. Currently no reports of chest pain, shortness of breath, or palpitations. Patient is afebrile. No reports of nausea or vomiting and patient is tolerating diet. Patient will be discharged home today. Guarded prognosis. High risk for readmissions given patient's significant comorbidities. Physical exam: Gen: This is a 78-year-old female who is awake, alert and oriented x 3, well- developed, well-nourished, morbidly obese HEENT: Head is atraumatic, normocephalic. Pupils equal, round. Sclerae is anicteric. NECK: Supple. No JVD. No lymphadenopathy. No thyromegaly. LUNGS: Diminished breath sounds bilaterally with some scattered rhonchi. No intercostal retractions. HEART: S1, S2 are muffled ABDOMEN: Soft. Obese bowel sounds are present. No masses. No tenderness. EXTREMITIES: No pedal edema. No calf tenderness. Mild generalized edema noted to lower extremities NEUROLOGICAL: Patient is awake, alert and oriented x3. Cranial nerves 2 through 12 are grossly intact. Diffusely weak Please refer to medication reconciliation sheet for a list of medications. The impression and plan of care has been dictated by Veronica Iqbal, Nurse Practitioner as directed. Dr. Ric MD I have performed a history and examination and MDM of this patient, discussed the same with the dictator, and agree with the dictator's assessment and plan as written ,documented as a scribe. Based on total visit time, I have performed more than 50% of the visit. Patient Condition at Discharge: Fair Plan - Discharge Summary Discharge Rx Participant: No New Discharge Prescriptions: New Losartan [Cozaar] 25 mg PO DAILY #30 tab Oseltamivir 6Mg/ml Oral Susp [Tamiflu] 30 mg PO DAILY 2 Days #2 each Potassium Chloride ER [K-Dur 20] 20 meq PO DAILY #30 tab Atorvastatin [Lipitor] 40 mg PO DAILY 30 Days #30 tab Budesonide-Formot 160-4.5 Mcg [Symbicort 160-4.5 Mcg Inhaler] 2 puff INHALATION BID #10.2 gm Continue Apixaban [Eliquis] 5 mg PO BID Albuterol Nebulized [Ventolin Nebulized] 2.5 mg INHALATION RT-TID Ondansetron [Zofran] 4 mg PO Q4H PRN PRN Reason: Nausea Acetaminophen Tab [Tylenol] 650 mg PO Q6HR PRN tab PRN Reason: Mild Pain Or Fever > 100.5 Discontinued Losartan-Hctz 50-12.5 mg [Hyzaar 50-12.5] 1 tab PO DAILY Discharge Medication List Apixaban [Eliquis] 5 mg PO BID 07/13/19 [History] Albuterol Nebulized [Ventolin Nebulized] 2.5 mg INHALATION RT-TID 07/26/20 [History] Acetaminophen Tab [Tylenol] 650 mg PO Q6HR PRN tab 04/19/23 [Rx] Ondansetron [Zofran] 4 mg PO Q4H PRN 01/07/24 [History] Atorvastatin [Lipitor] 40 mg PO DAILY 30 Days #30 tab 01/11/24 [Rx] Budesonide-Formot 160-4.5 Mcg [Symbicort 160-4.5 Mcg Inhaler] 2 puff INHALATION BID #10.2 gm 01/11/24 [Rx] Losartan [Cozaar] 25 mg PO DAILY #30 tab 01/11/24 [Rx] Oseltamivir 6Mg/ml Oral Susp [Tamiflu] 30 mg PO DAILY 2 Days #2 each 01/11/24 [Rx] Potassium Chloride ER [K-Dur 20] 20 meq PO DAILY #30 tab 01/11/24 [Rx] Follow up Appointment(s)/Referral(s): James Gerardo MD [Medical Doctor] - 1 Week (Office will call you to set up an appointment with Dr. Garcia.) Humaira Arechiga MD [STAFF PHYSICIAN] - 1 Week (Office will call you to set up your follow-up appointment.) Kimberly Molina MD [Primary Care Provider] - 1-2 days (Office closed for lunch; please call and make a follow-up appointment with Dr. Molina) Ambulatory/Diagnostic Orders: Basic Metabolic Panel [LAB.AMB] Time Frame: 3 Days, Location: None Selected Activity/Diet/Wound Care/Special Instructions: Activity limited until follow-up Follow-up with nephrology outpatient Follow-up with cardiology outpatient Continue taking medications as prescribed Follow-up with primary care provider on discharge Repeat labs in 2 to 3 days to monitor kidney functions and electrolytes Discharge Disposition: HOME SELF-CARE
--- NOTE | 2024-01-16 11:22 | CDI ---
Documentation Clarification Form Date: 01/16/2024 10:54:07 AM From: Kate Maharaj Phone: Admit Date: 01/07/2024 05:32:00 PM Patient Name: Renuka Wolf Visit Number: [id number] Discharge Date: 01/11/2024 02:51:00 PM ATTENTION: The Clinical Documentation Specialists (CDI) and [facility] Coding Staff appreciate your assistance in clarifying documentation. Please respond to the clarification below the line at the bottom and electronically sign. The CDI & [facility] Coding staff will review the response and follow-up if needed. Please note: Queries are made part of the Legal Health Record. If you have any questions, please contact the author of this message via ITS. Dr. Osvaldo Bal Conflicting documentation has been found in the medical record. As attending physician, please provide clarification. Acuteheart failure with mildly reduced EF, 45 to 50% Progress Note 3/4 Acute exacerbationCHF, diastolic dysfunction DC Summary History/Risk Factors: 78yo F,influenzaA, NSTEMI, permA fib,ALEXUS, ASHF,HTN, HLD,COPD, CHRF,TONYA Clinical Indicators: VS/Pulse OX: 98-100 BNP: 7830 Echocardiogram Results: Limitedstudy, previous echo recorded on 11/03/2022. MildlyimpairedLV function with EF between 45-50%. The right ventricle appears to bedilated. Overall technically difficultstudy Chest x ray: Heart/mediastinum: Cardiomediastinal silhouette isenlargedand stable. Treatment: No need for oral diuretics perDr. Gerardo. Daily weights, accurate intake and output, andmonitoringof kidney Fx. Add losartan 25 mg daily. Noplans forcardiac cathat this time. We will continue with medical mgt. Further workup to be determined on an OP basis. Patient is currently stable from a cardiac perspective. Patient tofollow-uppost DC withDr. Skaf. In your professional opinion, can you please clarify the type of CHF if known? [ ] Acute Systolic Heart Failure (reduced EF) [ ###] Acute Diastolic Heart Failure (preserved EF) [ ] Acute Systolic & Diastolic Heart Failure [ ] Other, please specify [ ] Unable to determine (Template Last Revised: December 2020) MTDD
== END 2024-01-11 14:51 | disposition home or self-care (01) | DRG 280 ==
LOC: EC 14:02 → 3SCARD 17:32
PROVIDERS: ADMIT Internal Medicine; ATTEND Internal Medicine
DX: I21.4 Non-ST elevation (NSTEMI) myocardial infarction (principal); I50.31 Acute diastolic (congestive) heart failure; N17.0 Acute kidney failure with tubular necrosis; J96.11 Chronic respiratory failure with hypoxia; I13.0 Hypertensive heart and chronic kidney disease with heart failure and stage 1 through stage 4 chronic kidney disease, or unspecified chronic kidney disease; I48.21 Permanent atrial fibrillation; Z68.41 Body mass index [BMI] 40.0-44.9, adult; I27.29 Other secondary pulmonary hypertension; N18.32 Chronic kidney disease, stage 3b; J44.9 Chronic obstructive pulmonary disease, unspecified; I95.9 Hypotension, unspecified; E86.0 Dehydration; Z99.81 Dependence on supplemental oxygen; E78.5 Hyperlipidemia, unspecified; G47.33 Obstructive sleep apnea (adult) (pediatric); E66.3 Overweight; I49.3 Ventricular premature depolarization; E87.6 Hypokalemia; J10.89 Influenza due to other identified influenza virus with other manifestations; Z79.01 Long term (current) use of anticoagulants; Z79.51 Long term (current) use of inhaled steroids; Z90.2 Acquired absence of lung [part of]; Z79.899 Other long term (current) drug therapy; Z82.49 Family history of ischemic heart disease and other diseases of the circulatory system
CPT/HCPCS: 36415; 71045; 71046; 76770; 80048; 80053; 80061; 81001; 83735; 83880; 84484; 85025; 85610; 85730; 93005; 93306; 94640; 96361; 96365; 96366; 96375; 99291

== ENCOUNTER 2024-03-18 09:40 | Inpatient (IN) | payer MEDICARE, OTHER ==
--- NOTE | 2024-03-18 10:16 | ED ---
General Adult HPI - General Chief complaint: Weakness Stated complaint: Lethargic Time Seen by Provider: 03/18/24 09:55 Source: patient, EMS, RN notes reviewed, old records reviewed Mode of arrival: EMS Limitations: no limitations - History of Present Illness Initial comments: This is a 78-year-old female who presents to the emergency department because of generalized weakness. EMS gives us the history as to why they were called by the . According to them the patient woke up and was to tired and fatigued and weak to get out of bed so the got concerned and called EMS. Patient herself has no complaints of pain or difficulty breathing. Patient denies any vomiting or diarrhea. Patient Nuys any fever chills or cough. Patient states she just very tired and weak and does not want to get up. Patient does not know why all of a sudden she is more weak than she has been. Patient denies any injury or fall. Patient has any headache patient denies lightheadedness or dizziness. Patient is on 2 L of oxygen at home at all times - Related Data Home Medications Medication Instructions Recorded Confirmed Apixaban [Eliquis] 5 mg PO BID 07/13/19 01/07/24 Albuterol Nebulized [Ventolin 2.5 mg INHALATION RT-TID 07/26/20 01/07/24 Nebulized] Ondansetron [Zofran] 4 mg PO Q4H PRN 01/07/24 01/07/24 Previous Rx's Medication Instructions Recorded Acetaminophen Tab [Tylenol] 650 mg PO Q6HR PRN tab 04/19/23 Atorvastatin [Lipitor] 40 mg PO DAILY 30 Days #30 tab 01/11/24 Budesonide-Formot 160-4.5 Mcg 2 puff INHALATION BID #10.2 gm 01/11/24 [Symbicort 160-4.5 Mcg Inhaler] Losartan [Cozaar] 25 mg PO DAILY #30 tab 01/11/24 Oseltamivir 6Mg/ml Oral Susp 30 mg PO DAILY 2 Days #2 each 01/11/24 [Tamiflu] Potassium Chloride ER [K-Dur 20] 20 meq PO DAILY #30 tab 01/11/24 Allergies Allergy/AdvReac Type Severity Reaction Status Date / Time No Known Allergies Allergy Verified 03/18/24 09:52 Review of Systems ROS Statement: Those systems with pertinent positive or pertinent negative responses have been documented in the HPI. ROS Other: All systems not noted in ROS Statement are negative. Past Medical History Past Medical History: Atrial Fibrillation, COPD, Hypertension Additional Past Medical History / Comment(s): COPD, hypertension, secondary pulmonary hypertension, chronic hypoxic respiratory failure, chronic atrial fibrillation, hyperlipidemia, obstructive sleep apnea, NSTEMI (01/07/24) History of Any Multi-Drug Resistant Organisms: None Reported Additional Past Surgical History / Comment(s): Right lung lung lobectomy, hernia repair and the patient has a large anterior abdominal wall incision, hysterectomy, knee surgery, cholecystectomy Past Anesthesia/Blood Transfusion Reactions: No Reported Reaction Past Psychological History: No Psychological Hx Reported Smoking Status: Never smoker Past Alcohol Use History: Rare Past Drug Use History: None Reported - Past Family History Mother Family Medical History: Cancer Father Family Medical History: Coronary Artery Disease (CAD) General Exam - General Exam Comments Initial Comments: GENERAL: Patient is well-developed and well-nourished. Patient is nontoxic and well- hydrated and is in no acute distress. ENT: Neck is soft and supple. No significant lymphadenopathy is noted. Oropharynx is clear. Moist mucous membranes. Neck has full range of motion without eliciting any pain. There is no thyroid enlargement and no masses were felt. EYES: The sclera were anicteric and conjunctiva were pink and moist. Extraocular movements were intact and pupils were equal round and reactive to light. Eyelids were unremarkable. PULMONARY: Patient has diminished breath sounds CARDIOVASCULAR: There is a regular rate and rhythm without any murmurs gallops or rubs. ABDOMEN: Soft and nontender with normal bowel sounds. SKIN: Skin is clear with no lesions or rashes and otherwise unremarkable. NEUROLOGIC: Patient is alert and oriented x3. Cranial nerves II through XII are grossly intact. Motor and sensory are also intact. Normal speech, volume and content. Symmetrical smile. MUSCULOSKELETAL: Normal extremities with adequate strength and full range of motion. No lower extremity swelling or edema. No calf tenderness. LYMPHATICS: No significant lymphadenopathy is noted PSYCHIATRIC: Normal psychiatric evaluation. Limitations: no limitations Course Vital Signs 03/18/24 03/18/24 09:42 11:46 Temperature 97.7 F Pulse Rate 91 85 Respiratory 22 16 Rate Blood Pressure 139/77 153/81 O2 Sat by Pulse 95 100 Oximetry Medical Decision Making - Medical Decision Making EKG is interpreted by myself. EKG shows atrial fibrillation at 94 bpm QRS is 68 QT interval is 291 QTc is 343 per patient EKG shows no ST segment ovation or depression. Was pt. sent in by a medical professional or institution (ERMELINDA Campos, ENVELOPE PRESS OPERATOR, urgent care, hospital, or [place] health care facility...) When possible be specific @ -No Did you speak to anyone other than the patient for history (EMS, parent, family, police, friend...)? What history was obtained from this source @ -No Did you review nursing and triage notes (agree or disagree)? Why? @ -I reviewed and agree with nursing and triage notes Were old charts reviewed (outside hosp., previous admission, EMS record, old EKG, old radiological studies, urgent care reports/EKG's, [place] health [facility] facility records)? Report findings @ -I compared today's chest x-ray with the previous chest x-ray. Today's x-ray shows a pleural effusion and pulmonary edema that was not there before. I also looked at today's lab work compared to old lab work and troponin was at its baseline. Differential Diagnosis (chest pain, altered mental status, abdominal pain women, abdominal pain men, vaginal bleeding, weakness, fever, dyspnea, syncope, headache, dizziness, GI bleed, back pain, seizure, CVA, palpatations, mental health, musculoskeletal)? @ -Differential Weakness: Hypoglycemia, shock, sepsis, hyponatremia, anemia, infection, [place], ETOH, adverse medicine reaction, overdose, stroke, this is not meant to be an all-inclusive li st. EKG interpreted by me (3pts min.). @ -As above X-rays interpreted by me (1pt min.). @ -Chest x-ray shows pleural effusion with pulmonary edema CT interpreted by me (1pt min.). @ -None done U/S interpreted by me (1pt. min.). @ -None done What testing was considered but not performed or refused? (CT, X-rays, U/S, labs)? Why? @ -None What meds were considered but not given or refused? Why? @ -None Did you discuss the management of the patient with other professionals (professionals i.e. ERMELINDA Campos, ENVELOPE PRESS OPERATOR, lab, RT, psych nurse, manager social work, customer relations representative, teacher, weapons electrical engineering officer, manager case)? Give summary @ -I spoke with [facility] hospitalist they agreed to admit the patient to the patient wrote admitting orders Was smoking cessation discussed for >3mins.? @ -No Was critical care preformed (if so, how long)? @ -No Were there social determinants of health that impacted care today? How? (Ho melessness, low income, unemployed, alcoholism, drug addiction, transportation, low edu. Level, literacy, decrease access to med. care, halfway, rehab)? @ -No Was there de-escalation of care discussed even if they declined (Discuss DNR or withdrawal of care, Hospice)? DNR status @ -No What co-morbidities impacted this encounter? (DM, HTN, Smoking, COPD, CAD, Cancer, CVA, ARF, Chemo, Hep., AIDS, mental health diagnosis, sleep apnea, morbid obesity)? @ -None Was patient admitted / discharged? Hospital course, mention meds given and route, prescriptions, significant lab abnormalities, going to OR and other pertinent info. @ -Patient has acute pulmonary edema with pleural effusion. Patient will be admitted for pulmonary edema. Patient is admitted to [facility] Hospitalist. Undiagnosed new problem with uncertain prognosis? @ -No Drug Therapy requiring intensive monitoring for toxicity (Heparin, Nitro, Insulin, Cardizem)? @ -No Were any procedures done? @ -No Diagnosis/symptom? @ -Acute pulmonary edema Acute, or Chronic, or Acute on Chronic? @ -Acute Uncomplicated (without systemic symptoms) or Complicated (systemic symptoms)? @ -Complicated Side effects of treatment? @ -No Exacerbation, Progression, or Severe Exacerbation? @ -No Poses a threat to life or bodily function? How? (Chest pain, [place], [place], pneumonia, PE, COPD, DKA, ARF, appy, cholecystitis, CVA, Diverticulitis, Homicidal, Suicidal, threat to staff... and all critical care pts) @ -Yes this can lead to hypoxia and endorgan dysfunction - Lab Data Result diagrams: 03/18/24 10:27 03/18/24 10: Lab Results 03/18/24 03/18/24 03/18/24 Range/Units 10:27 10: 10: WBC 11.7 H (3.8-10.6) k/uL RBC 4.20 (3.80-5.40) m/uL Hgb 12.7 (11.4-16.0) gm/dL Hct 43.3 (34.0-46.0) % MCV 102.9 H (80.0-100.0) fL MCH 30.3 (25.0-35.0) pg MCHC 29.4 L (31.0-37.0) g/dL RDW 13.6 (11.5-15.5) % Plt Count 159 (150-450) k/uL MPV 7.1 Neutrophils % 89 % Lymphocytes % 5 % Monocytes % 4 % Eosinophils % 0 % Basophils % 1 % Neutrophils # 10.5 H (1.3-7.7) k/uL Lymphocytes # 0.6 L (1.0-4.8) k/uL Monocytes # 0.5 (0-1.0) k/uL Eosinophils # 0.0 (0-0.7) k/uL Basophils # 0.1 (0-0.2) k/uL Hypochromasia Marked Macrocytosis Slight PT 10.6 (10.0-12.5) sec INR 1.0 (<1.2) APTT 20.6 L (22.0-30.0) sec Sodium 141 (137-145) mmol/L Potassium 5.6 H (3.5-5.1) mmol/L Chloride 94 L (98-107) mmol/L Carbon Dioxide 46 H* (22-30) mmol/L Anion Gap 1 mmol/L BUN 29 H (7-17) mg/dL Creatinine 0.73 (0.52-1.04) mg/dL Est GFR (CKD-EPI)AfAm >90 (>60 ml/min/1.73 sqM) Est GFR (CKD-EPI)NonAf 79 (>60 ml/min/1.73 sqM) Glucose 87 (74-99) mg/dL Plasma Lactic Acid Derek (0.7-2.0) mmol/L Calcium 9.5 (8.4-10.2) mg/dL Magnesium 2.1 (1.6-2.3) mg/dL Total Bilirubin 2.2 H (0.2-1.3) mg/dL AST 32 (14-36) U/L ALT 21 (4-34) U/L Alkaline Phosphatase 73 (38-126) U/L Troponin I (0.000-0.034) ng/mL Total Protein 6.2 L (6.3-8.2) g/dL Albumin 3.5 (3.5-5.0) g/dL Urine Color Urine Appearance (Clear) Urine pH (5.0-8.0) Ur Specific [place] (1.001-1.035) Urine Protein (Negative) Urine Glucose (UA) (Negative) Urine Ketones (Negative) Urine Blood (Negative) Urine Nitrite (Negative) Urine Bilirubin (Negative) Urine Urobilinogen (<2.0) mg/dL Ur Leukocyte Esterase (Negative) Urine RBC (0-5) /hpf Urine WBC (0-5) /hpf Ur Squamous Epith Cells (0-4) /hpf Urine Mucus (None) /hpf 03/18/24 03/18/24 03/18/24 Range/Units 10:27 10:27 10:46 WBC (3.8-10.6) k/uL RBC (3.80-5.40) m/uL Hgb (11.4-16.0) gm/dL Hct (34.0-46.0) % MCV (80.0-100.0) fL MCH (25.0-35.0) pg MCHC (31.0-37.0) g/dL RDW (11.5-15.5) % Plt Count (150-450) k/uL MPV Neutrophils % % Lymphocytes % % Monocytes % % Eosinophils % % Basophils % % Neutrophils # (1.3-7.7) k/uL Lymphocytes # (1.0-4.8) k/uL Monocytes # (0-1.0) k/uL Eosinophils # (0-0.7) k/uL Basophils # (0-0.2) k/uL Hypochromasia Macrocytosis PT (10.0-12.5) sec INR (<1.2) APTT (22.0-30.0) sec Sodium (137-145) mmol/L Potassium (3.5-5.1) mmol/L Chloride (98-107) mmol/L Carbon Dioxide (22-30) mmol/L Anion Gap mmol/L BUN (7-17) mg/dL Creatinine (0.52-1.04) mg/dL Est GFR (CKD-EPI)AfAm (>60 ml/min/1.73 sqM) Est GFR (CKD-EPI)NonAf (>60 ml/min/1.73 sqM) Glucose (74-99) mg/dL Plasma Lactic Acid Derek 0.8 (0.7-2.0) mmol/L Calcium (8.4-10.2) mg/dL Magnesium (1.6-2.3) mg/dL Total Bilirubin (0.2-1.3) mg/dL AST (14-36) U/L ALT (4-34) U/L Alkaline Phosphatase (38-126) U/L Troponin I 0.027 (0.000-0.034) ng/mL Total Protein (6.3-8.2) g/dL Albumin (3.5-5.0) g/dL Urine Color Yellow Urine Appearance Cloudy H (Clear) Urine pH 5.0 (5.0-8.0) Ur Specific [place] 1.021 (1.001-1.035) Urine Protein 1+ H (Negative) Urine Glucose (UA) Negative (Negative) Urine Ketones 1+ H (Negative) Urine Blood Trace H (Negative) Urine Nitrite Negative (Negative) Urine Bilirubin Negative (Negative) Urine Urobilinogen <2.0 (<2.0) mg/dL Ur Leukocyte Esterase Negative (Negative) Urine RBC 2 (0-5) /hpf Urine WBC 1 (0-5) /hpf Ur Squamous Epith Cells 14 H (0-4) /hpf Urine Mucus Few H (None) /hpf Disposition Clinical Impression: Pulmonary edema Disposition: ADMITTED IP TO THIS [facility] Referrals: Kimberly Molina MD [Primary Care Provider] - 1-2 days Time of Disposition: 12:39
[2024-03-18 10:34] LABS: Basophils # (A) 0.1 k/uL (0-0.2); Basophils % (A) 1 %; Eosinophils % (A) 0 %; HCT 43.3 % (34.0-46.0); HGB 12.7 gm/dL (11.4-16.0); Hypochromasia Marked; Lymphocytes # (A) 0.6 k/uL (1.0-4.8); Lymphocytes % (A) 5 %; MCH 30.3 pg (25.0-35.0); MCHC 29.4 g/dL (31.0-37.0); MCV 102.9 fL (80.0-100.0); Macrocytosis Slight; Mean Platelet Volume 7.1; Monocytes # (A) 0.5 k/uL (0-1.0); Monocytes % (A) 4 %; Neutrophils # (A) 10.5 k/uL (1.3-7.7); Neutrophils % (A) 89 %; Platelet Count 159 k/uL (150-450); RDW 13.6 % (11.5-15.5); WBC 11.7 k/uL (3.8-10.6)
[2024-03-18 10:47] LABS: ALT 21 U/L (4-34); African American GFR (CKD) >90 (>60 ml/min/1.73 sqM); Blood Urea Nitrogen 29 mg/dL (7-17); Calcium 9.5 mg/dL (8.4-10.2); Chloride 94 mmol/L (98-107); Glucose 87 mg/dL (74-99); Non-African American GFR(CKD) 79 (>60 ml/min/1.73 sqM); Sodium 141 mmol/L (137-145); Total Bilirubin 2.2 mg/dL (0.2-1.3)
[2024-03-18 10:53] LABS: Anion Gap 1 mmol/L
[2024-03-18 10:54] LABS: Prothrombin Time 10.6 sec (10.0-12.5)
[2024-03-18 10:59] LABS: Partial Thromboplastin Time 20.6 sec (22.0-30.0)
[2024-03-18 11:07] LABS: AST 32 U/L (14-36); Albumin 3.5 g/dL (3.5-5.0); Alkaline Phosphatase 73 U/L (38-126); Magnesium 2.1 mg/dL (1.6-2.3); Potassium 5.6 mmol/L (3.5-5.1); Total Protein 6.2 g/dL (6.3-8.2)
[2024-03-18 11:08] LABS: Carbon Dioxide 46 mmol/L (22-30)
[2024-03-18 11:09] LABS: Appearance,Urine Cloudy (Clear); Bilirubin,Urine Negative (Negative); Blood,Urine Trace (Negative); Color,Urine Yellow; Glucose,Urine (UA) Negative (Negative); Ketones,Urine 1+ (Negative); Leukocyte Esterase,Urine Negative (Negative); Mucus,Urine Few /hpf; Nitrite,Urine Negative (Negative); Protein,Urine 1+ (Negative); RBC,Urine 2 /hpf (0-5); Specific Gravity,Urine 1.021 (1.001-1.035); Squamous Epithelial Cell,Urine 14 /hpf (0-4); Urobilinogen,Urine <2.0 mg/dL (<2.0); WBC,Urine 1 /hpf (0-5)
--- NOTE | 2024-03-18 11:37 | XR ---
EXAMINATION TYPE: XR chest 2V DATE OF EXAM: 03/18/2024 COMPARISON: 01/09/2024 HISTORY: 78-year-old female with weakness TECHNIQUE: AP and lateral views FINDINGS: Heart mild to moderately enlarged. Diffuse interstitial and vascular densities with patchy bilateral opacities. Redemonstrated enlarged right main pulmonary artery. Relative upper lung lucencies. Possib le previous thoracotomy change on the right. Small effusions on the lateral view. IMPRESSION: Correlate for CHF with patchy pulmonary edema. Background COPD and pulmonary arterial hypertension.
[2024-03-18] MEDS: SODIUM CHLORIDE 0.9% 500 ML 500 ML IV STA (11:38)
[2024-03-18] MEDS: FUROSEMIDE 10 MG/ML 4 ML VIAL IV STA (12:54)
[2024-03-18] MEDS: NITROGLYCERIN OINT 1 INCH/GM PACKET TOPICAL STA (12:54)
[2024-03-18 14:11] LABS: Amphetamine Screen,Urine Not Detected (NotDetected); Barbiturate Screen,Urine Not Detected (NotDetected); Benzodiazepines Screen,Urine Detected (NotDetected); Cocaine Screen,Urine Not Detected (NotDetected); Methadone Screen, Urine Not Detected (NotDetected); Opiate Screen,Urine Not Detected (NotDetected); Oxycodone Screen, Urine Not Detected (NotDetected); Phencyclidine Screen,Urine Not Detected (NotDetected); Tricyclic Antidepressant,Urine Not Detected (NotDetected); Urn Cannabinoid Scrn Not Detected (NotDetected)
[2024-03-18 14:46] LABS: ABG Base Excess 15.8 mmol/L; ABG Oxygen Saturation 89.5 % (94-97); ABG PH 7.22 (7.35-7.45); Allen Test Performed? Yes
[2024-03-18] MEDS: PANTOPRAZOLE 40 MG/10 ML VIAL IVP SCH (14:51)
[2024-03-18 14:55] LABS: ABG PCO2 119 mmHg (35-45)
[2024-03-18 14:56] LABS: ABG PO2 57 mmHg (83-108)
[2024-03-18 14:57] LABS: ABG HCO3 48 mmol/L (21-25)
--- NOTE | 2024-03-18 15:45 | CT ---
EXAMINATION TYPE: CT brain wo con DATE OF EXAM: 03/18/2024 COMPARISON: 11/01/2022 HISTORY: AMS CT DLP: 1095.4 mGycm Automated exposure control for dose reduction was used. Findings: The ventricles, basal cisterns and sulci over the convexities are within normal limits for the patien t's age and there is no mass effect or shift of midline structures. There is marked diffuse decreased density in the white matter of both cerebral hemispheres consistent with chronic ischemic white matter demyelination. There is no acute intra or extra-axial hemorrhage The posterior fossa including the brainstem, fourth ventricle and cerebellar pontine angles appear no rmal. Intraorbital contents appear normal and symmetric. Visualized paranasal sinuses and mastoid air cells are well aerated. The calvarium is intact. IMPRESSION: No significant abnormality seen. There is no acute bleed or mass effect.
[2024-03-18] MEDS: FUROSEMIDE 10 MG/ML 4 ML VIAL IV SCH (16:28)
--- NOTE | 2024-03-18 16:29 | P.CNPUL ---
History of Present Illness Consult date: 03/18/24 Requesting physician: Adrienne Larios Reason for consult: dyspnea, COPD Chief complaint: Weakness, unable to keep History of present illness: This is a 78-year-old female, familiar to my service, patient is known to have history of severe COPD, obstructive sleep apnea syndrome, patient has chronic hypoxic respiratory failure maintained on 1.5 L nasal cannula, she has pulmonary hypertension and history of prominent hilar pulmonary vasculature. Patient was brought in by family mostly because she has been noticed to be extremely weak, fatigued, falling asleep most of the time, difficult to keep her awake. No history of injury or head trauma, no headache, no dizziness, no blurred vision workup in the ER included a chest x-ray which was highly suspicious for pulmonary edema. WBC count is 11.7 hemoglobin 12.7, basic metabolic profile is normal except for elevated bicarb of 46 potassium is high at 5.6. Screening for influenza A influenza B, RSV and COVID-19 all negative. Drug screen positive only for benzodiazepines ABG is very abnormal showing a pO2 of 57 pCO2 119 pH of 7.22 and this was on 2 L nasal cannula I was notified about this patient's ABG and I ran down to the ER, evaluated the patient, I recommended placing the patient on BiPAP 18/8/40%, discussed CODE STATUS with the family, and the patient is presently no code. This was clearly expressed previously according to the daughter and by the patient and I believe I have discussed this CODE STATUS in the past with the patient and she is DNR. At any rate considering her profound hypercapnia and respiratory acidosis, I recommended admission of the patient to the ICU. In the meantime I adjusted her BiPAP, jeffrey ent will be receiving Lasix for her pulmonary edema, and she will be placed on bronchodilators for her underlying COPD Review of Systems ROS unobtainable: due to mental status (Patient is quite lethargic, arousable, opens eyes, but unable to volunteer any history or review of systems. According to the daughter the patient has been weak, fatigued, and sleeping most of the time) Past Medical History Past Medical History: Atrial Fibrillation, COPD, Hypertension Additional Past Medical History / Comment(s): COPD, hypertension, secondary pulmonary hypertension, chronic hypoxic respiratory failure, chronic atrial fibrillation, hyperlipidemia, obstructive sleep apnea, NSTEMI (01/07/24) History of Any Multi-Drug Resistant Organisms: None Reported Additional Past Surgical History / Comment(s): Right lung lung lobectomy, hernia repair and the patient has a large anterior abdominal wall incision, hysterectomy, knee surgery, cholecystectomy Past Anesthesia/Blood Transfusion Reactions: No Reported Reaction Past Psychological History: No Psychological Hx Reported Smoking Status: Never smoker Past Alcohol Use History: Rare Past Drug Use History: None Reported - Past Family History Mother Family Medical History: Cancer Father Family Medical History: Coronary Artery Disease (CAD) Medications and Allergies Home Medications Medication Instructions Recorded Confirmed Type Apixaban [Eliquis] 2.5 mg PO BID 03/18/24 03/18/24 History Atorvastatin [Lipitor] 40 mg PO DAILY 03/18/24 03/18/24 History Losartan [Cozaar] 25 mg PO DAILY 03/18/24 03/18/24 History Allergies Allergy/AdvReac Type Severity Reaction Status Date / Time No Known Allergies Allergy Verified 03/18/24 13:15 Physical Exam Vitals: Vital Signs Temp Pulse Resp BP Pulse Ox FiO2 03/18/24 15:49 35 03/18/24 15:30 40 03/18/24 15:22 40 03/18/24 14:09 84 17 127/73 90 L 03/18/24 12:58 98 F 94 22 156/87 98 03/18/24 11:46 85 16 153/81 100 03/18/24 09:42 97.7 F 91 22 139/77 95 Intake and Output 03/18/24 03/18/24 03/18/24 06:59 14:59 22:59 Other: Weight 90.718 kg General: revealed 78-year-old female, obese, on BiPAP, comfortable, arousable, opens her eyes but she tends to fall asleep again. Skin: Skin is warm and dry and no rashes or lesions are noted. Eye: Pupils are equal, round and reactive to light, extra-ocular movements are intact; there is normal conjunctiva bilaterally. Ears, nose, mouth and throat: There are moist mucous membranes and no oral lesions. Neck: The neck is supple, there is no tenderness or JVD. Cardiovascular: There is a regular rate and rhythm. No murmur, rub or gallop is appreciated. Respiratory: Diminished breath sound bilaterally, minimal crackles at the bases no rhonchi no wheezes Gastrointestinal: Obese, soft, non-distended, non-tender abdomen without masses or organomegaly noted. There is no rebound or guarding present. Bowel sounds are unremarkable. Musculoskeletal: Normal ROM, no tenderness, There is no pedal edema. There is no calf tenderness or swelling. No cords were appreciated. Neurological: Patient is arousable especially with sternal rub, opens eyes but tends to fall asleep again. Psychiatric: Could not assess patient is quite sleepy and lethargic Results - Laboratory Findings CBC and BMP: 03/18/24 10:27 03/18/24 10:27 ABG ABG pH 7.22 (7.35-7.45) L 03/18/24 14:39 ABG pCO2 119 mmHg (35-45) H* 03/18/24 14:39 ABG pO2 57 mmHg (83-108) L* 03/18/24 14:39 ABG O2 Saturation 89.5 % (94-97) L 03/18/24 14:39 PT/INR, D-dimer PT 10.6 sec (10.0-12.5) 03/18/24 10:27 INR 1.0 (<1.2) 03/18/24 10:27 Abnormal lab findings: Abnormal Labs 03/18/24 03/18/24 03/18/24 10:27 10:27 10:27 WBC 11.7 H MCV 102.9 H MCHC 29.4 L Neutrophils # 10.5 H Lymphocytes # 0.6 L APTT 20.6 L ABG pH ABG pCO2 ABG pO2 ABG HCO3 ABG O2 Saturation Potassium 5.6 H Chloride 94 L Carbon Dioxide 46 H* BUN 29 H Total Bilirubin 2.2 H Total Protein 6.2 L Urine Appearance Urine Protein Urine Ketones Urine Blood Ur Squamous Epith Cells Urine Mucus U Benzodiazepines Scrn 03/18/24 03/18/24 03/18/24 10:46 10:46 14:39 WBC MCV MCHC Neutrophils # Lymphocytes # APTT ABG pH 7.22 L ABG pCO2 119 H* ABG pO2 57 L* ABG HCO3 48 H* ABG O2 Saturation 89.5 L Potassium Chloride Carbon Dioxide BUN Total Bilirubin Total Protein Urine Appearance Cloudy H Urine Protein 1+ H Urine Ketones 1+ H Urine Blood Trace H Ur Squamous Epith Cells 14 H Urine Mucus Few H U Benzodiazepines Scrn Detected H - Diagnostic Findings Chest x-ray: image reviewed (Chest x-ray is consistent with diffuse pulmonary vascular congestion, right hilar fullness, this has been evaluated in the past and felt to be vascular fullness) Additional studies: CT brain showed no evidence of acute abnormality. Assessment and Plan Assessment: Impression: Acute on chronic hypoxic and hypercapnic respiratory failure secondary to severe underlying COPD and suspect some component of congestive heart failure, systolic in nature ejection fraction of 45% Chronic atrial fibrillation Chronic hypoxic and hypercapnic respiratory failure Benign essential hypertension Chronic cor pulmonale Dyslipidemia pulmonary hypertension acute on chronic systolic congestive heart failure Acute metabolic encephalopathy secondary to hypercapnia and CO2 narcosis. Recommendation: Seen and evaluated while in the ER Because her condition with admitting physician Dr. Larios Continue BiPAP, patient is presently on IPAP of 18 and EPAP of 8 FiO2 40% Admit patient to the ICU Bronchodilators for COPD Close monitoring of electrolytes and renal profile while on diuretics Repeat chest x-ray in a.m. Diuretics for congestive heart failure GI and DVT prophylaxis Continue Eliquis patient is on Eliquis 2.5 mg twice daily for 6 atrial fibrillation Empiric antibiotics patient is on Rocephin Resume home meds including her pulmonary and cardiac meds Repeat ABG after 1 to 2 hours on BiPAP Will continue to follow. Patient is critically ill. Discussed and reviewed CODE STATUS with the family at bedside, patient is presently DNR. Time with Patient: Greater than 30
[2024-03-18 16:40] LABS: ABG Base Excess 17.4 mmol/L; ABG Oxygen Saturation 92.5 % (94-97); ABG PH 7.27 (7.35-7.45); ABG PO2 62 mmHg (83-108); Allen Test Performed? Yes
[2024-03-18 16:45] LABS: ABG PCO2 106 mmHg (35-45)
[2024-03-18 16:46] LABS: ABG HCO3 49 mmol/L (21-25)
[2024-03-18 17:05] LABS: Glucose,Whole Blood 66 mg/dL (70-110)
[2024-03-18] MEDS: DEXTROSE 50% SYRINGE 50 ML IVP ONE (17:17)
[2024-03-18 17:41] LABS: Glucose,Whole Blood 81 mg/dL (70-110)
[2024-03-18 20:24] LABS: Glucose,Whole Blood 83 mg/dL (70-110)
[2024-03-18] MEDS: IPRATROPIUM-ALBUTEROL 3 ML NEB INHALATION SCH (20:43)
[2024-03-18] MEDS: BUDESONIDE 1 MG/2 ML NEBU INHALATION SCH (20:43)
[2024-03-18] MEDS: FORMOTEROL FUMARATE 20 MCG/2 ML NEBU INHALATION SCH (20:43)
[2024-03-18] MEDS: APIXABAN 2.5 MG TABLET PO SCH (21:45)
--- NOTE | 2024-03-18 22:14 | HP ---
HISTORY AND PHYSICAL CHIEF COMPLAINT: Change in mental status and lethargy. HISTORY OF PRESENT ILLNESS: This 78-year-old woman with a past medical history of multiple medical issues, was previously admitted with non-STEMI as well as CHF acute exacerbation, influenza A, currently found that the patient drowsy yesterday after coming home, and then the patient was unable to arose today, and the patient taken to [facility] and admitted for further evaluation and treatment. White count is elevated and CO2 is 46. The patient is stuporous, unable to provide a history. History is obtained from the and family at the bedside. The patient is followed by Dr. Molina in the outpatient setting. PAST MEDICAL HISTORY: COPD, atrial fibrillation, hypertension, rest of the history is noted. HOME MEDICATIONS: Cozaar, dose and rest of medications noted. ALLERGIES: None. FAMILY HISTORY: Could not be taken because of change in mental status. SOCIAL HISTORY: Could not be taken because of change in mental status. REVIEW OF SYSTEMS: Could not be taken because of change in mental status. PHYSICAL EXAMINATION: VITAL SIGNS: Pulse is 85, blood pressure 153/81, respirations 16. HEENT: Conjunctivae normal. NECK: No jugular venous distention. RESPIRATIONS: Diminished at the bases. Few scattered rhonchi and crackles. ABDOMEN: Soft and nontender. LEGS: No edema, no swelling. NERVOUS SYSTEM: Could not be examined completely. SKIN: No rashes. JOINTS: No active deforming arthropathy. LABORATORY DATA: WBC n_ reviewed. Chest x-ray also reviewed, compared to the previous chest x- ray as well. Prominent right hilum, CHF also noted. ASSESSMENT: 1. Change in mental status, possible metabolic encephalopathy, rule out sepsis. 2. Chronic obstructive pulmonary disease, acute exacerbation with possible hypercarbia. 3. Rule out respiratory acidosis. 4. Atrial fibrillation. 5. History of CHF. 6. Hypertension. 7. Secondary pulmonary hypertension. 8. History of iea-WM-mzafjzz-elevation myocardial infarction. 9. Obstructive sleep apnea. RECOMMENDATIONS: This 78-year-old woman presented with multiple complex medical issues, we will monitor the patient closely. I would recommend intensive bronchodilators as well as empiric antibiotics. Obtain cultures. The possibility of pneumonia versus sepsis not completely ruled out at this time. I would also recommend stat ABG. Consult Dr. Sotomayor for possible BiPAP. We will continue to monitor. Neurology will be consulted. CT scan of the brain is ordered. Neuro checks also will be recommended. Home medications will be continued. DVT prophylaxis. Overall prognosis extremely guarded because of multiple complex medical issues. Discussed at length with the family at the bedside, understands and agrees. Further recommendations to follow. See orders for details. MMODL / IJN: [id number] / MTDD
[2024-03-18 22:18] LABS: African American GFR (CKD) 88 (>60 ml/min/1.73 sqM); Blood Urea Nitrogen 34 mg/dL (7-17); Calcium 9.5 mg/dL (8.4-10.2); Chloride 87 mmol/L (98-107); Glucose 84 mg/dL (74-99); Magnesium 1.9 mg/dL (1.6-2.3); Non-African American GFR(CKD) 76 (>60 ml/min/1.73 sqM); Potassium 4.4 mmol/L (3.5-5.1); Sodium 140 mmol/L (137-145)
[2024-03-18 22:23] LABS: Anion Gap 4 mmol/L
[2024-03-18 22:25] LABS: Carbon Dioxide 49 mmol/L (22-30)
[2024-03-18] MEDS: methylPREDNISolone SOD SUCCI 125 MG/2 ML VIAL IV SCH (23:27)
[2024-03-19] MEDS ORDERED: MORPHINE SULFATE 2 MG/ML SYRINGE IVP PRN (00:43)
[2024-03-19 01:41] LABS: Glucose,Whole Blood 89 mg/dL (70-110)
[2024-03-19 06:00] LABS: Basophils % (A) 0 %; Eosinophils % (A) 0 %; HCT 39.2 % (34.0-46.0); HGB 12.2 gm/dL (11.4-16.0); Hypochromasia Moderate; Lymphocytes # (A) 0.7 k/uL (1.0-4.8); Lymphocytes % (A) 5 %; MCH 30.7 pg (25.0-35.0); MCV 98.9 fL (80.0-100.0); Mean Platelet Volume 7.6; Monocytes # (A) 0.4 k/uL (0-1.0); Monocytes % (A) 3 %; Neutrophils # (A) 12.7 k/uL (1.3-7.7); Neutrophils % (A) 92 %; Platelet Count 152 k/uL (150-450); RBC 3.97 m/uL (3.80-5.40); RDW 13.6 % (11.5-15.5); WBC 13.8 k/uL (3.8-10.6)
[2024-03-19 06:54] LABS: ALT 19 U/L (4-34); AST 22 U/L (14-36); African American GFR (CKD) 67 (>60 ml/min/1.73 sqM); Albumin 3.2 g/dL (3.5-5.0); Alkaline Phosphatase 86 U/L (38-126); Blood Urea Nitrogen 36 mg/dL (7-17); Calcium 9.3 mg/dL (8.4-10.2); Chloride 83 mmol/L (98-107); Glucose 102 mg/dL (74-99); Magnesium 1.7 mg/dL (1.6-2.3); Non-African American GFR(CKD) 58 (>60 ml/min/1.73 sqM); Potassium 4.1 mmol/L (3.5-5.1); Sodium 140 mmol/L (137-145); Total Bilirubin 2.7 mg/dL (0.2-1.3); Total Protein 5.7 g/dL (6.3-8.2)
[2024-03-19 07:02] LABS: Anion Gap 5 mmol/L
[2024-03-19 07:12] LABS: Carbon Dioxide 52 mmol/L (22-30)
--- NOTE | 2024-03-19 07:32 | XR ---
EXAMINATION TYPE: XR chest 1V portable DATE OF EXAM: 03/19/2024 Comparison: 03/18/2024 Clinical History: 78-year-old female CHF Findings: Heart remains mildly enlarged. Hyperinflation with bullous change at the right apex. Interstitial den sities shows slight improvement. Aeration at both lung bases is also improving. Large central pulmona ry arteries redemonstrated. Impression: COPD, mild cardiomegaly, and pulmonary arterial hypertension. Interstitial changes are showing partia l improvement. Bibasilar patchy opacities also show some improvement.
[2024-03-19] MEDS: IPRATROPIUM-ALBUTEROL 3 ML NEB INHALATION SCH (08:14)
[2024-03-19] MEDS: ATORVASTATIN 40 MG TAB PO SCH (08:33)
[2024-03-19] MEDS: FUROSEMIDE 10 MG/ML 4 ML VIAL IV SCH (08:33)
[2024-03-19] MEDS: LOSARTAN 25 MG TAB PO SCH (08:33)
[2024-03-19] MEDS: NITROGLYCERIN OINT 1 INCH/GM PACKET TOPICAL SCH (09:38)
--- NOTE | 2024-03-19 11:29 | P.PN ---
Subjective Progress Note Date: 03/19/24 Principal diagnosis: Respiratory failure. This is a 78-year-old female, familiar to my service, patient is known to have history of severe COPD, obstructive sleep apnea syndrome, patient has chronic hypoxic respiratory failure maintained on 1.5 L nasal cannula, she has pulmonary hypertension and history of prominent hilar pulmonary vasculature. Patient was brought in by family mostly because she has been noticed to be extremely weak, fatigued, falling asleep most of the time, difficult to keep her awake. No history of injury or head trauma, no headache, no dizziness, no blurred vision workup in the ER included a chest x-ray which was highly suspicious for pulmonary edema. WBC count is 11.7 hemoglobin 12.7, basic metabolic profile is normal except for elevated bicarb of 46 potassium is high at 5.6. Screening for influenza A influenza B, RSV and COVID-19 all negative. Drug screen positive only for benzodiazepines ABG is very abnormal showing a pO2 of 57 pCO2 119 pH of 7.22 and this was on 2 L nasal cannula I was notified about this patient's ABG and I ran down to the ER, evaluated the patient, I recommended placing the patient on BiPAP 18/8/40%, discussed CODE STATUS with the family, and the patient is presently no code. This was clearly expressed previously according to the daughter and by the patient and I believe I have discussed this CODE STATUS in the past with the patient and she is DNR. At any rate considering her profound hypercapnia and respiratory acidosis, I recommended admission of the patient to the ICU. In the meantime I adjusted her BiPAP, patient will be receiving Lasix for her pulmonary edema, and she will be placed on bronchodilators for her underlying COPD Progress note dated March 19, 2024. 78-year-old female seen in consultation yesterday, and admitted with a diagnosis of COPD exacerbation, sleep apnea syndrome, chronic respiratory failure, among other things. The patient is seen today in room 263. She was admitted on March 18. She is on BiPAP, with settings of 18/8, and 35%. She is getting saline at about 5 cc an hour. Her procalcitonin level is 0.04. Antibiotics will be discontinued. She was taken off BiPAP for short period of time, to eat, but she did poorly, was placed back on BiPAP. Current labs include a white count 13.8, hemoglobin 12.2, hematocrit 39.2, and a normal platelet count. Sodium 140, potassium 4.1, chlorides 83, CO2 52, BUN 36, creatinine 0.94. Glucose is 102. Albumin 3.2. N-terminal proBNP is 2380. Chest x-ray shows changes of COPD, cardiomegaly, and some interstitial changes, which may relate to fluid overload and or atelectasis. Objective - Vital Signs Vital signs: Vital Signs Temp 99.0 F 03/19/24 08:00 Pulse 89 03/19/24 10:00 Resp 20 03/19/24 10:00 BP 150/92 03/19/24 10:00 Pulse Ox 94 L 03/19/24 10:00 FiO2 35 03/19/24 08:15 Intake & Output 03/18/24 03/19/24 03/19/24 18:59 06:59 18:59 Intake Total 50 Output Total 975 2415 195 Balance -975 -2415 -145 Weight 90.718 kg 90.5 kg Intake: IV 50 cefTRIAXone 1 gm In 50 Sodium Chloride 0.9% 50 ml @ 100 mls/hr IVPB Q24HR [facility] Rx#:[id number] Output: Urine 975 2415 195 Other: Voiding Method Indwelling Catheter Indwelling Catheter # Bowel Movements 1 - Exam No acute distress, oriented 3. BiPAP mask in place. HEENT examination is grossly unremarkable. Neck supple. Full range of motion. No adenopathy thyromegaly or neck vein distention. Cardiovascular examination reveals regular rhythm rate. S1-S2 normal. No S3 or S4. No discernible murmur noted. Heart sounds are distant. Heart rate 89 bpm. Lungs reveal coarse bilateral expiratory rhonchi and wheezes. Breath sounds are equal. No crackles. Saturations are 94% on the BiPAP device. Abdomen soft, without bowel sounds. Abdomen is obese. No masses. Extremities are intact. No cyanosis clubbing or significant edema. Skin is without rash or lesion. Neurologic examination is brief but nonfocal. - Labs CBC & Chem 7: 03/19/24 05:40 03/19/24 05:40 Labs: Abnormal Lab Results - Last 24 Hours (Table) 03/18/24 03/18/24 03/18/24 Range/Units 10:46 14:39 16:33 WBC (3.8-10.6) k/uL Neutrophils # (1.3-7.7) k/uL Lymphocytes # (1.0-4.8) k/uL ABG pH 7.22 L 7.27 L (7.35-7.45) ABG pCO2 119 H* 106 H* (35-45) mmHg ABG pO2 57 L* 62 L (83-108) mmHg ABG HCO3 48 H* 49 H* (21-25) mmol/L ABG O2 Saturation 89.5 L 92.5 L (94-97) % Chloride (98-107) mmol/L Carbon Dioxide (22-30) mmol/L BUN (7-17) mg/dL Glucose (74-99) mg/dL POC Glucose (mg/dL) (70-110) mg/dL Total Bilirubin (0.2-1.3) mg/dL Total Protein (6.3-8.2) g/dL Albumin (3.5-5.0) g/dL U Benzodiazepines Scrn Detected H (NotDetected) 03/18/24 03/18/24 03/19/24 Range/Units 17:04 21:25 05:40 WBC 13.8 H (3.8-10.6) k/uL Neutrophils # 12.7 H (1.3-7.7) k/uL Lymphocytes # 0.7 L (1.0-4.8) k/uL ABG pH (7.35-7.45) ABG pCO2 (35-45) mmHg ABG pO2 (83-108) mmHg ABG HCO3 (21-25) mmol/L ABG O2 Saturation (94-97) % Chloride 87 L (98-107) mmol/L Carbon Dioxide 49 H* (22-30) mmol/L BUN 34 H (7-17) mg/dL Glucose (74-99) mg/dL POC Glucose (mg/dL) 66 L (70-110) mg/dL Total Bilirubin (0.2-1.3) mg/dL Total Protein (6.3-8.2) g/dL Albumin (3.5-5.0) g/dL U Benzodiazepines Scrn (NotDetected) 03/19/24 Range/Units 05:40 WBC (3.8-10.6) k/uL Neutrophils # (1.3-7.7) k/uL Lymphocytes # (1.0-4.8) k/uL ABG pH (7.35-7.45) ABG pCO2 (35-45) mmHg ABG pO2 (83-108) mmHg ABG HCO3 (21-25) mmol/L ABG O2 Saturation (94-97) % Chloride 83 L (98-107) mmol/L Carbon Dioxide 52 H* (22-30) mmol/L BUN 36 H (7-17) mg/dL Glucose 102 H (74-99) mg/dL POC Glucose (mg/dL) (70-110) mg/dL Total Bilirubin 2.7 H (0.2-1.3) mg/dL Total Protein 5.7 L (6.3-8.2) g/dL Albumin 3.2 L (3.5-5.0) g/dL U Benzodiazepines Scrn (NotDetected) Assessment and Plan Assessment: Acute on chronic hypoxemic and hypercapnic respiratory failure in a patient with severe COPD, and possible underlying CHF. Chronic atrial fibrillation. Chronic hypoxemic and hypercapnic respiratory failure. Benign essential hypertension. Truncal obesity. Chronic cor pulmonale. Hyperlipidemia. Secondary pulmonary hypertension. Metabolic encephalopathy secondary to CO2 narcosis. Plan: Plan dated March 19, 2024. The patient was admitted on March 18. She was admitted with a diagnosis of acute hypoxemic and hypercapnic respiratory failure, secondary to severe COPD. The patient is currently BiPAP dependent. She is on settings of 18/8 and 35%. She is getting saline at 5 cc an hour. Procalcitonin level was 0.04. Antibiotics were discontinued. Chest x-ray shows some improvement. We will continue to follow make recommendations along the way. Labs, x-rays, and medications are all reviewed. The patient continues on GI DVT prophylaxis. The patient continues on Eliquis. Prognosis is certainly guarded. In the end, the patient may require intubation, but she is a no code patient. The patient was taken off of BiPAP for short period of time, but he needed to be restarted right away, as the patient desaturated. Time with Patient: Greater than 30
[2024-03-19 12:06] LABS: Glucose,Whole Blood 192 mg/dL (70-110)
--- NOTE | 2024-03-19 13:09 | CA ---
Transthoracic Echo Report Name: Renuka Wolf Age: 78 Gender: F : 1945 Exam Date: 03/19/2024 10:52 Exam Location: [facility] Ht (in): 64 Wt (lb): 199 Ordering Physician: Franky Maya MD ([id number]) Attending/Referring Phys: [id number] Operator Alyssa Alford RDCS Procedure CPT: Indications: LV function Cardiac Hx: Limited ECHO done, previous echo 01-07-24 Technical Quality: Fair Contrast 1: Definity Total Dose (mL): 2 Contrast 2: Total Dose (mL): MEASUREMENTS (Male / Female) Normal Values 2D ECHO LV Diastolic Diameter PLAX 3.3 cm 4.2 - 5.9 / 3.9 - 5.3 cm LV Systolic Diameter PLAX 2.3 cm IVS Diastolic Thickness 1.3 cm 0.6 - 1.0 / 0.6 - 0.9 cm LVPW Diastolic Thickness 1.2 cm 0.6 - 1.0 / 0.6 - 0.9 cm LV Relative Wall Thickness 0.8 RV Internal Dim ED PLAX 3.0 cm LV Diastolic Volume MOD BP 50.3 cm??? 67 - 155 / 56 - 104 cm??? LV Systolic Volume MOD BP 14.3 cm??? 22 - 58 / 19 - 49 cm??? LV Ejection Fraction MOD BP 71.6 % >= 55 % LV Cardiac Index MOD BP 1681.0 cm???/min???m??? LV Diastolic Volume MOD 4C 55.2 cm??? LV Systolic Volume MOD 4C 10.8 cm??? LV Ejection Fraction MOD 4C 80.4 % LV Cardiac Index MOD 4C 2071.3 cm???/min???m??? LV Diastolic Length 4C 7.8 cm LV Systolic Length 4C 6.4 cm LV Diastolic Volume MOD 2C 43.2 cm??? LV Systolic Volume MOD 2C 10.3 cm??? LV Ejection Fraction MOD 2C 76.2 % LV Cardiac Index MOD 2C 1537.8 cm???/min???m??? LV Diastolic Length 2C 7.3 cm LV Systolic Length 2C 3.0 cm M-MODE Aortic Root Diameter MM 2.7 cm LA Systolic Diameter MM 4.1 cm LA Ao Ratio MM 1.5 DOPPLER TR Peak Velocity 308.0 cm/s TR Peak Gradient 45.4 mmHg Right Atrial Pressure 10.0 mmHg Pulmonary Artery Systolic Pressu 47.9 mmHg Right Ventricular Systolic Press 47.9 mmHg FINDINGS Left Ventricle Left ventricular ejection fraction is estimated at 60-65 %. Left ventricular cavity size normal. Normal left ventricular systolic function with no obvious regional wall motion abnormalities.Mildly increased left ventricular wall thickness. Right Ventricle Mild right ventricular dilatation. Moderate pulmonary hypertension. Right Atrium Left Atrium Mitral Valve Aortic Valve Tricuspid Valve Pulmonic Valve Pericardium Left pleural effusion. Aorta Aortic root and proximal ascending aorta not well visualized. CONCLUSIONS 1. Normal ventricular size and systolic function 2. Moderate pulmonary hypertension Previewed by: Dr. Ronald Byrd MD (Electronically Signed) Final Date: 19 Mar 2024 13:09
--- NOTE | 2024-03-19 23:36 | CONS ---
CONSULTATION I was asked to see the patient for acute pulmonary edema. HISTORY OF PRESENT ILLNESS: This is a 78-year-old lady, who is known to have a history of severe COPD, obstructive sleep apnea, chronic hypoxia, and is known to have hypercarbic respiratory failure. She is on home oxygen at 1.5 L. She also has pulmonary hypertension. She was brought in by the family because of extreme lethargy, fatigue, falling asleep most of the time. She was found to have elevated pCO2 level. She has been placed on a bicarb, has shown some improvement. There was also a question of some pulmonary edema. BNP however is not significantly elevated. She has a combination of probably some diastolic heart failure and also pulmonary hypertension in addition to hypercarbic respiratory failure. She is on BiPAP at this time. Her breathing has improved since arrival. Please refer to the detailed note by Dr. Welch for other information. PAST MEDICAL HISTORY: Remarkable for persistent atrial fibrillation, hypertension, and hyperlipidemia in addition to severe oxygen requiring COPD. HOME MEDICATIONS: Include; 1. Eliquis 2.5 mg b.i.d. 2. Atorvastatin 40 mg daily. 3. Losartan 25 mg daily. PHYSICAL EXAMINATION: VITAL SIGNS: Blood pressure is 140/80, pulse rate is about 80 and irregular. HEENT: Unremarkable. Fundus was not examined by me. NECK: Supple. There is JVD of 1 cm. No carotid bruit. HEART: Reveals S1, S2 with irregular rhythm. Short systolic murmur. LUNGS: Diminished air entry. ABDOMEN: Distended, soft, nontender. EXTREMITIES: Lower extremities reveal diminished pulses. CENTRAL NERVOUS SYSTEM: Grossly no focal deficits. IMPRESSION: 1. Acute hypercarbic respiratory failure, on BiPAP. 2. Pulmonary hypertension secondary to obstructive sleep apnea and chronic obstructive pulmonary disease. 3. History of severe chronic obstructive pulmonary disease, oxygen requiring. 4. History of obstructive sleep apnea. RECOMMENDATIONS: This patient has probably predominantly exacerbation of COPD with hypercarbic respiratory failure. There may be a small component of heart failure with diastolic mostly with a modestly elevated BNP. I am recommending we reduce the Lasix to 40 mg q.12 hours. Check an additional troponin level and also a BNP level. Further management is by Pulmonary and her last echocardiogram was from January of this year and study at that time revealed an ejection fraction of about 45% to 50% with poorly evaluated right-sided pressures. I will continue to see the patient. MMODL / IJN: [id number] /
--- NOTE | 2024-03-20 04:05 | PN ---
PROGRESS NOTE DATE OF SERVICE: 03/19/2024 SUBJECTIVE: This is a 78-year-old woman who was admitted with acute hypercarbic hypoxic respiratory failure possibly secondary to multifactorial including COPD, CHF, and possibly obstructive sleep apnea, is on BiPAP at this time. The patient has also ejection fraction 45%. The patient also has chronic atrial fibrillation. The patient is being closely monitored in ICU. The most recent chest x-ray which I reviewed personally showed still features of CHF and prominent right hilum also. PAST MEDICAL HISTORY: Reviewed. REVIEW OF SYSTEMS: Could not be taken, the patient is on BiPAP. CURRENT MEDICATIONS: Reviewed include DuoNeb, dose and rest of medications noted. PHYSICAL EXAMINATION: VITAL SIGNS: Pulse is 103, blood pressure 128/82, respirations 24. HEENT: Conjunctivae normal. NECK: No jugular venous distention. LUNGS: Breathing efforts are markedly increased. The patient is on BiPAP. BiPAP settings are noted. RESPIRATORY: Bilateral scattered rhonchi and crackles. Expiratory wheezing. ABDOMEN: Soft, nontender. LEGS: No edema, no swelling. NERVOUS SYSTEM: No focal deficits. LABORATORY DATA: CO2 is 52, rest of the labs are noted. ASSESSMENT: 1. Acute hypoxic hypercarbic respiratory failure, multifactorial, including COPD acute exacerbation with CHF acute exacerbation acute on chronic systolic dysfunction, ejection fraction 45% as well as possibly obstructive sleep apnea syndrome. 2. Acute respiratory acidosis. 3. Atrial fibrillation. 4. Hypertension. 5. Secondary pulmonary hypertension with prominent right hilum. 6. History of clu-CJ-nufosoc-elevation myocardial infarction. 7. Acute metabolic encephalopathy secondary to CO2 narcosis. 8. Gait dysfunction and weakness. RECOMMENDATIONS AND DISCUSSION: I recommended to continue the current management, continue symptomatic treatment. Continue the bronchodilators, continue the diuretics. Continue the BiPAP. Ensure oxygenation. DVT prophylaxis. Closely follow with Pulmonary and ICU. Guarded prognosis. Further recommendations to follow. MMODL / IJN: [id number] /
[2024-03-20] MEDS: IPRATROPIUM-ALBUTEROL 3 ML NEB INHALATION PRN (04:06)
[2024-03-20 07:27] LABS: Basophils % (A) 0 %; Eosinophils % (A) 0 %; HCT 37.2 % (34.0-46.0); HGB 11.3 gm/dL (11.4-16.0); Hypochromasia Slight; Lymphocytes # (A) 0.4 k/uL (1.0-4.8); Lymphocytes % (A) 3 %; MCH 29.6 pg (25.0-35.0); MCHC 30.3 g/dL (31.0-37.0); MCV 97.5 fL (80.0-100.0); Mean Platelet Volume 7.6; Monocytes # (A) 0.4 k/uL (0-1.0); Monocytes % (A) 4 %; Neutrophils # (A) 10.6 k/uL (1.3-7.7); Neutrophils % (A) 92 %; Platelet Count 143 k/uL (150-450); RBC 3.82 m/uL (3.80-5.40); RDW 13.9 % (11.5-15.5); WBC 11.5 k/uL (3.8-10.6)
--- NOTE | 2024-03-20 07:57 | P.CNNES ---
History of Present Illness Consult date: 03/20/24 Requesting physician: Adrienne Larios Reason for Consult: Change in mentation History of Present Illness: Patient is a 78-year-old female was brought to the hospital by ambulance yesterday at 9:40 AM. As per EMS flowsheet arrived for a female with unresponsiveness. When they arrived patient was alert and orient x 4 with GCS of 15, slightly lethargic. Family on the scene mentioned that they had difficulty waking the patient from sleep. Patient complained of generalized weakness, fatigue and general malaise for 1 month. Patient also stated she has productive cough for 2 weeks. Patient seemed especially tired yesterday. Her blood glucose was 116 mg/dL temperature was 97.7. Patient has history of COPD, atrial fibrillation, kidney failure with out dialysis. Patient denied difficulty breathing, chest pain, headache or visual changes. Denied abnormalities in urination. Patient's vitals at the scene was blood pressure 127/41 pulse rate 74 respirations 16 saturation 95%. Patient's blood test shows WBC 11.7, hemoglobin 12.7, elevated MCV 102.9. Platelets are normal. PTT normal. ABG showed pH of 7.22, pCO2 of 119, pO2 57, saturation 89%. Sodium is normal potassium 5.6. Renal functions are normal, he patic panel normal. UA negative. Urine drug screen positive for benzodiazepine. Blood alcohol level negative, influenza, RSV and coronavirus PCR negative. EKG shows atrial fibrillation. Chest x-ray correlate for CHF with patchy pulmonary edema. Background COPD and pulmonary arterial hypertensi on. CT head revealed no significant abnormality. There is no acute bleed or mass effect. 2D echo revealed normal ventricular size and systolic function. Moderate pulmonary hypertension. LVEF 60 to 65%. Neurology was consulted because of unequal pupil and episode of unresponsiveness. Patient has been found to have severe CO2 retention, probably leading to CO2 narcosis. Patient at present is on BiPAP. She is responding appropriately. Patient does have history of COPD, uses oxygen at 2 L nasal cannula. Nursing staff has noticed that when patient is using BiPAP, she is neurologically better, but when she is placed on nasal cannula, she is clinically worse. Review of Systems As above. Patient on BiPAP, not able to obtain detailed review of systems. Ears, nose, mouth and throat: Denies headache Cardiovascular: Reports shortness of breath, Denies chest pain Past Medical History Past Medical History: Atrial Fibrillation, COPD, Hypertension Additional Past Medical History / Comment(s): COPD, hypertension, secondary pulmonary hypertension, chronic hypoxic respiratory failure, chronic atrial fibrillation, hyperlipidemia, obstructive sleep apnea, NSTEMI (01/07/24) History of Any Multi-Drug Resistant Organisms: None Reported Additional Past Surgical History / Comment(s): Right lung lung lobectomy, hernia repair and the patient has a large anterior abdominal wall incision, hysterectomy, knee surgery, cholecystectomy Past Anesthesia/Blood Transfusion Reactions: No Reported Reaction Past Psychological History: No Psychological Hx Reported Smoking Status: Never smoker Past Alcohol Use History: Rare Past Drug Use History: None Reported - Past Family History Mother Family Medical History: Cancer Father Family Medical History: Coronary Artery Disease (CAD) Medications and Allergies Home Medications Medication Instructions Recorded Confirmed Type Apixaban [Eliquis] 2.5 mg PO BID 03/18/24 03/18/24 History Atorvastatin [Lipitor] 40 mg PO DAILY 03/18/24 03/18/24 History Losartan [Cozaar] 25 mg PO DAILY 03/18/24 03/18/24 History Allergies Allergy/AdvReac Type Severity Reaction Status Date / Time No Known Allergies Allergy Verified 03/18/24 13:15 Physical Examination - Vital Signs Vital Signs: Vital Signs Temp Pulse Resp BP Pulse Ox FiO2 03/20/24 07:00 79 11 L 139/88 96 03/20/24 06:00 85 22 120/69 100 03/20/24 05:00 86 12 103/68 95 03/20/24 04:20 88 03/20/24 04:06 89 35 03/20/24 04:00 99.5 F 75 9 L 132/79 96 03/20/24 03:00 92 18 151/91 97 03/20/24 02:00 70 10 L 119/73 98 03/20/24 01:00 82 10 L 105/58 97 03/20/24 00:44 35 03/20/24 00:00 99 F 85 10 L 132/84 97 35 03/19/24 23:16 82 16 132/84 97 03/19/24 23:00 80 11 L 124/55 99 03/19/24 22:00 89 15 142/75 93 L 03/19/24 21:30 80 03/19/24 21:21 80 03/19/24 21:20 80 03/19/24 21:07 72 35 03/19/24 21:00 72 11 L 155/79 97 03/19/24 20:00 99.3 F 75 19 122/70 98 35 03/19/24 19:00 84 14 98 03/19/24 18:00 86 14 95 03/19/24 17:00 97 20 94 L 03/19/24 16:45 97 03/19/24 16:28 94 03/19/24 16:27 35 03/19/24 16:00 75 17 154/82 96 03/19/24 15:00 90 20 97 03/19/24 14:00 97 16 143/84 96 03/19/24 13:00 96 24 152/79 93 L 03/19/24 12:00 103 H 24 128/85 97 03/19/24 11:45 90 35 03/19/24 11:00 101 H 22 161/89 97 03/19/24 10:00 89 20 150/92 94 L 03/19/24 09:00 87 12 156/81 97 03/19/24 08:45 107 H 03/19/24 08:30 111 H 03/19/24 08:15 112 H 35 03/19/24 08:00 99.0 F 105 H 16 120/81 Intake and Output 03/19/24 03/20/24 03/20/24 22:59 06:59 14:59 Intake Total 150 Output Total 290 710 40 Balance -290 -710 110 Intake: Oral 150 Output: Urine 290 710 40 Other: Voiding Method Indwelling Catheter Indwelling Catheter # Bowel Movements 1 Weight 88.7 kg Patient is an elderly female, using BiPAP. Patient is sleeping, but on waking up, patient did become alert awake. Speech and language functions are normal as per nursing staff. Patient can name and repeat very well. No aphasia or dysarthria. Attention, concentration is slightly diminished and fund of knowledge is adequate. On cranial nerve examination, pupils are unequal, left pupil is 6 mm and the right is 3 mm. The right pupil is slightly more reactive as compared to the left. Both pupils are round, her visual gan are full on confrontation, with no neglect on double simultaneous stimulation. Extraocular muscles are intact with no nystagmus. Face and lower cranial nerves cannot be assessed because of being on BiPAP. Hearing appears normal and shoulder shrug normal, facial sensation normal. On muscle strength testing, there is no pronator drift and the strength is normal in arms and legs distally and proximally. No myoclonic jerks noted. Deep tendon reflexes are symmetric biceps 2, brachioradialis 2, knees 1, ankles 1+ and plantars downgoing bilaterally. Sensory to touch is equal with no neglect on double simultaneous stimulation. Cerebellar function showed no ataxia for [id number] testing. No dysdiadochokinesia. No ataxia for [id number] testing on either side. Tone and bulk of muscles normal. Gait deferred.. On general examination, there is no carotid bruit or murmur, S1-S2 audible. Chest is clear on consultation. Abdomen is soft nontender. No organomegaly, bowel sounds present. Peripheral pulses are present. No peripheral edema. Results - Laboratory Findings CBC and BMP: 03/20/24 06:37 03/19/24 05:40 Abnormal Lab Findings: Abnormal Labs 03/18/24 03/18/24 03/18/24 10:27 10:27 10:27 WBC 11.7 H Hgb MCV 102.9 H MCHC 29.4 L Plt Count Neutrophils # 10.5 H Lymphocytes # 0.6 L APTT 20.6 L ABG pH ABG pCO2 ABG pO2 ABG HCO3 ABG O2 Saturation Potassium 5.6 H Chloride 94 L Carbon Dioxide 46 H* BUN 29 H Glucose POC Glucose (mg/dL) Total Bilirubin 2.2 H Total Protein 6.2 L Albumin Urine Appearance Urine Protein Urine Ketones Urine Blood Ur Squamous Epith Cells Urine Mucus U Benzodiazepines Scrn 03/18/24 03/18/24 03/18/24 10:46 10:46 14:39 WBC Hgb MCV MCHC Plt Count Neutrophils # Lymphocytes # APTT ABG pH 7.22 L ABG pCO2 119 H* ABG pO2 57 L* ABG HCO3 48 H* ABG O2 Saturation 89.5 L Potassium Chloride Carbon Dioxide BUN Glucose POC Glucose (mg/dL) Total Bilirubin Total Protein Albumin Urine Appearance Cloudy H Urine Protein 1+ H Urine Ketones 1+ H Urine Blood Trace H Ur Squamous Epith Cells 14 H Urine Mucus Few H U Benzodiazepines Scrn Detected H 03/18/24 03/18/24 03/18/24 16:33 17:04 21:25 WBC Hgb MCV MCHC Plt Count Neutrophils # Lymphocytes # APTT ABG pH 7.27 L ABG pCO2 106 H* ABG pO2 62 L ABG HCO3 49 H* ABG O2 Saturation 92.5 L Potassium Chloride 87 L Carbon Dioxide 49 H* BUN 34 H Glucose POC Glucose (mg/dL) 66 L Total Bilirubin Total Protein Albumin Urine Appearance Urine Protein Urine Ketones Urine Blood Ur Squamous Epith Cells Urine Mucus U Benzodiazepines Scrn 03/19/24 03/19/24 03/19/24 05:40 05:40 12:04 WBC 13.8 H Hgb MCV MCHC Plt Count Neutrophils # 12.7 H Lymphocytes # 0.7 L APTT ABG pH ABG pCO2 ABG pO2 ABG HCO3 ABG O2 Saturation Potassium Chloride 83 L Carbon Dioxide 52 H* BUN 36 H Glucose 102 H POC Glucose (mg/dL) 192 H Total Bilirubin 2.7 H Total Protein 5.7 L Albumin 3.2 L Urine Appearance Urine Protein Urine Ketones Urine Blood Ur Squamous Epith Cells Urine Mucus U Benzodiazepines Scrn 03/20/24 06:37 WBC 11.5 H Hgb 11.3 L MCV MCHC 30.3 L Plt Count 143 L Neutrophils # 10.6 H Lymphocytes # 0.4 L APTT ABG pH ABG pCO2 ABG pO2 ABG HCO3 ABG O2 Saturation Potassium Chloride Carbon Dioxide BUN Glucose POC Glucose (mg/dL) Total Bilirubin Total Protein Albumin Urine Appearance Urine Protein Urine Ketones Urine Blood Ur Squamous Epith Cells Urine Mucus U Benzodiazepines Scrn Assessment and Plan Assessment: * Anisocoria, probably due to CO2 retention, or related to use of bronchodilators. Patient's examination is normal. * Metabolic encephalopathy, likely due to CO2 narcosis * Acute on chronic hypoxemic and hypercapnic respiratory failure * COPD * Chronic atrial fibrillation * Hypertension * Hyperlipidemia Plan: * Patient's neurological examination is normal. * Anisocoria appears benign at this time. We will follow clinically. * Treatment of other medical conditions as per IM, critical care and other specialties. * Patient on Eliquis 2.5 mg twice daily for atrial fibrillation. * CT head is normal. Neurologically, no other workup indicated. * Patient had a normal carotid Doppler on 12/08/2019. * Thank you for the consultation.
[2024-03-20 08:26] LABS: African American GFR (CKD) 61 (>60 ml/min/1.73 sqM); Blood Urea Nitrogen 51 mg/dL (7-17); Calcium 9.1 mg/dL (8.4-10.2); Chloride 82 mmol/L (98-107); Glucose 160 mg/dL (74-99); Non-African American GFR(CKD) 53 (>60 ml/min/1.73 sqM); Potassium 3.1 mmol/L (3.5-5.1); Sodium 138 mmol/L (137-145)
[2024-03-20] MEDS: FUROSEMIDE 40 MG TAB PO SCH (08:27)
[2024-03-20 08:33] LABS: Anion Gap 4 mmol/L
[2024-03-20 08:39] LABS: Carbon Dioxide 52 mmol/L (22-30)
--- NOTE | 2024-03-20 08:41 | XR ---
EXAMINATION TYPE: XR chest 1V portable DATE OF EXAM: 03/20/2024 Comparison: 03/19/2024 Clinical History: 78-year-old female BiPAP dependent respiratory failure Findings: Heart mildly enlarged. Hazy lung densities relating to overlying soft tissue. Known enlargement of th e central main pulmonary arteries. Interstitium has an improved appearance. Impression: Cardiomegaly, COPD, and pulmonary arterial hypertension. The interstitium appears to be improving.
[2024-03-20] MEDS ORDERED: Potassium Replacement Protocol 1 EACH MISC MISCELLANE PRN (08:43)
[2024-03-20] MEDS: POTASSIUM CHLORIDE ER 20 MEQ TAB.ER PO SCH ×3 (09:22→21:52)
--- NOTE | 2024-03-20 11:05 | P.PN ---
Subjective Progress Note Date: 03/20/24 Principal diagnosis: Respiratory failure. This is a 78-year-old female, familiar to my service, patient is known to have history of severe COPD, obstructive sleep apnea syndrome, patient has chronic hypoxic respiratory failure maintained on 1.5 L nasal cannula, she has pulmonary hypertension and history of prominent hilar pulmonary vasculature. Patient was brought in by family mostly because she has been noticed to be extremely weak, fatigued, falling asleep most of the time, difficult to keep her awake. No history of injury or head trauma, no headache, no dizziness, no blurred vision workup in the ER included a chest x-ray which was highly suspicious for pulmonary edema. WBC count is 11.7 hemoglobin 12.7, basic metabolic profile is normal except for elevated bicarb of 46 potassium is high at 5.6. Screening for influenza A influenza B, RSV and COVID-19 all negative. Drug screen positive only for benzodiazepines ABG is very abnormal showing a pO2 of 57 pCO2 119 pH of 7.22 and this was on 2 L nasal cannula I was notified about this patient's ABG and I ran down to the ER, evaluated the patient, I recommended placing the patient on BiPAP 18/8/40%, discussed CODE STATUS with the family, and the patient is presently no code. This was clearly expressed previously according to the daughter and by the patient and I believe I have discussed this CODE STATUS in the past with the patient and she is DNR. At any rate considering her profound hypercapnia and respiratory acidosis, I recommended admission of the patient to the ICU. In the meantime I adjusted her BiPAP, patient will be receiving Lasix for her pulmonary edema, and she will be placed on bronchodilators for her underlying COPD Progress note dated March 19, 2024. 78-year-old female seen in consultation yesterday, and admitted with a diagnosis of COPD exacerbation, sleep apnea syndrome, chronic respiratory failure, among other things. The patient is seen today in room 263. She was admitted on March 18. She is on BiPAP, with settings of 18/8, and 35%. She is getting saline at about 5 cc an hour. Her procalcitonin level is 0.04. Antibiotics will be discontinued. She was taken off BiPAP for short period of time, to eat, but she did poorly, was placed back on BiPAP. Current labs include a white count 13.8, hemoglobin 12.2, hematocrit 39.2, and a normal platelet count. Sodium 140, potassium 4.1, chlorides 83, CO2 52, BUN 36, creatinine 0.94. Glucose is 102. Albumin 3.2. N-terminal proBNP is 2380. Chest x-ray shows changes of COPD, cardiomegaly, and some interstitial changes, which may relate to fluid overload and or atelectasis. Progress note dated March 20, 2024. 78-year-old female seen today in room 263. Currently she is on 2 L of oxygen. She did use the BiPAP overnight with settings of 18/8, and 35%. She not receiving any IV fluids. Currently, she is doing much better clinically. She feels much less short of breath. Current labs include white count 11.5, hemoglobin 11.3, hematocrit 37.2, and a platelet count of 143,000. Sodium 138, potassium 3.1, chlorides 82, CO2 52, BUN 51, creatinine 1.02. Glucose is 160. Blood cultures are currently pending are negative. Chest x-ray shows changes of cardiomegaly, COPD, and pulmonary arterial hypertension. Objective - Vital Signs Vital signs: Vital Signs Temp 99.2 F 03/20/24 08:00 Pulse 96 03/20/24 10:00 Resp 19 03/20/24 10:00 BP 135/79 03/20/24 10:00 Pulse Ox 93 L 03/20/24 10:00 FiO2 35 03/20/24 04:06 Intake & Output 03/19/24 03/20/24 03/20/24 18:59 06:59 18:59 Intake Total 50 300 Output Total 780 840 120 Balance -730 -840 180 Weight 90.5 kg 88.7 kg Intake: IV 50 [id number] 1 gm In 50 Sodium Chloride 0.9% 50 ml @ 100 mls/hr IVPB Q24HR [facility] Rx#:[id number] Oral 300 Output: Urine 780 840 120 Other: Voiding Method Indwelling Catheter Indwelling Catheter Indwelling Catheter # Bowel Movements 1 - Exam No acute distress, oriented 3. Currently on nasal O2 at 2 L. HEENT examination is grossly unremarkable. Neck supple. Full range of motion. No adenopathy thyromegaly or neck vein distention. Cardiovascular examination reveals regular rhythm rate. S1-S2 normal. No S3 or S4. No discernible murmur noted. Heart sounds are distant. Heart rate 96 bpm. Lungs reveal coarse bilateral expiratory rhonchi and wheezes. Breath sounds are equal. No crackles. Saturations are 93% on 2 L. Abdomen soft, without bowel sounds. Abdomen is obese. No masses. Extremities are intact. No cyanosis clubbing or significant edema. Skin is without rash or lesion. Neurologic examination is brief but nonfocal. - Labs CBC & Chem 7: 03/20/24 06:37 03/20/24 06:37 Labs: Abnormal Lab Results - Last 24 Hours (Table) 03/19/24 03/20/24 03/20/24 Range/Units 12:04 06:37 06:37 WBC 11.5 H (3.8-10.6) k/uL Hgb 11.3 L (11.4-16.0) gm/dL MCHC 30.3 L (31.0-37.0) g/dL Plt Count 143 L (150-450) k/uL Neutrophils # 10.6 H (1.3-7.7) k/uL Lymphocytes # 0.4 L (1.0-4.8) k/uL Potassium 3.1 L (3.5-5.1) mmol/L Chloride 82 L (98-107) mmol/L Carbon Dioxide 52 H* (22-30) mmol/L BUN 51 H (7-17) mg/dL Glucose 160 H (74-99) mg/dL POC Glucose (mg/dL) 192 H (70-110) mg/dL Microbiology - Last 24 Hours (Table) 03/18/24 14:15 Blood Culture - Preliminary Blood Assessment and Plan Assessment: Acute on chronic hypoxemic and hypercapnic respiratory failure in a patient with severe COPD, and possible underlying CHF. Chronic atrial fibrillation. Chronic hypoxemic and hypercapnic respiratory failure. Benign essential hypertension. Truncal obesity. Chronic cor pulmonale. Hyperlipidemia. Secondary pulmonary hypertension. Metabolic encephalopathy secondary to CO2 narcosis. Plan: Plan dated March 19, 2024. The patient was admitted on March 18. She was admitted with a diagnosis of acute hypoxemic and hypercapnic respiratory failure, secondary to severe COPD. The patient is currently BiPAP dependent. She is on settings of 18/8 and 35%. She is getting saline at 5 cc an hour. Procalcitonin level was 0.04. Antibiotics were discontinued. Chest x-ray shows some improvement. We will continue to follow make recommendations along the way. Labs, x-rays, and medications are all reviewed. The patient continues on GI DVT prophylaxis. The patient continues on Eliquis. Prognosis is certainly guarded. In the end, the patient may require intubation, but she is a no code patient. The patient was taken off of BiPAP for short period of time, but he needed to be restarted right away, as the patient desaturated. Plan dated March 20, 2024. The patient is doing much better. The patient is currently on 2 L of oxygen. She is using the BiPAP device at nighttime exclusively. Labs, x-rays, medications are reviewed. She is on appropriate medications including bronchodilators, and corticosteroids. We will continue to follow the patient, and make recommendations along the way. She continues on Pulmicort, formoterol, albuterol sulfate, ipratropium bromide, and Solu-Medrol. Labs, x-rays, and med ications are all reviewed. Prognosis is guarded. Time with Patient: Less than 30
--- NOTE | 2024-03-20 12:45 | PN ---
PROGRESS NOTE SUBJECTIVE: Mrs. Wolf has a combination of what seems to be a hypercapnic respiratory failure, but she is making modest improvement. OBJECTIVE: VITALS: Stable. HEART: S1, S2 heard normally, short systolic murmur noted. LUNGS: Reveal diminished air entry. ABDOMEN: Soft. EXTREMITIES: Lower extremities reveal diminished pulses. Echo revealed good systolic function with pulmonary hypertension. I am recommending that we switch her from IV to oral Lasix 40 mg in the morning, 20 mg in the afternoon, and continue further management as per Pulmonary. No new suggestions. We will continue to see her as needed. MMODL / IJN: [id number] /
[2024-03-20 14:35] LABS: Magnesium 1.6 mg/dL (1.6-2.3); Potassium 3.4 mmol/L (3.5-5.1)
[2024-03-20] MEDS ORDERED: Magnesium Replacement Protocol 1 EACH MISC MISCELLANE PRN (14:35)
--- NOTE | 2024-03-20 15:17 | P.PN ---
Subjective Progress Note Date: 03/20/24 This is a 78-year-old female who was recently admitted with acute hypoxic hypercarbic respiratory failure secondary to COPD as well as CHF exacerbation and possibly obstructive sleep apnea. Patient apparently is supposed to be wearing a CPAP machine although per family patient does not wear this if she cannot tolerate the mask and takes it off frequently. Patient is currently transition from BiPAP and on 2 to 3 L via nasal cannula and weaning as tolerated. Chest x-ray today shows cardiomegaly, COPD, pulmonary artery hypertension with some improvements in the interstitium. Patient is a downgrade out of the ICU once a bed becomes available on [facility]. White count is trending down 11.5, hemoglobin is stable at 11.3 and platelets are 143. Sodium is 138 with a potassium of 3.1 after repeat is 3.4 and will replace per protocol. Carbon dioxide remains elevated at 52 with a BUN of 51 and creatinine is 1.02. Blood sugars are being monitored and will continue with current regimen. Magnesium is 1.6 and will replace per protocol. Will discuss with case management/social work along with family and patient regarding discharge planning. As of right now plans are for returning home. Patient with significant weakness and noncompliance will have PT/OT therapy evaluate the patient. Patient is currently afebrile with no reports of chest pain or palpitations. Patient denies worsening shortness of breath and reports is slightly improved. No reported nausea or vomiting and patient is tolerating diet. Continue DuoNeb treatments along with IV steroids and other inhalers. Review of systems: Constitutional: reports of fatigue, no fever, or chills Cardiovascular: No reports of chest pain or palpitations Respiratory: No reports of worsening shortness of breath, reports feeling sligh tly improved GI: No reports of nausea, no reports of vomiting, no diarrhea : No reports of dysuria or retention Neurovascular: reports of generalized weakness All medications have been reviewed Active Medications Albuterol/Ipratropium (Ipratropium-Albuterol 3 Ml Neb) 3 ml INHALATION RT-TID PRN PRN Reason: Shortness Of Breath Or Wheezing Last Admin: 03/20/24 04:06 Dose: 3 ml Albuterol/Ipratropium (Ipratropium-Albuterol 3 Ml Neb) 3 ml INHALATION RT-QID [facility] Last Admin: 05/14/24 11:23 Dose: 3 ml Apixaban (Apixaban 2.5 Mg Tablet) 2.5 mg PO BID [facility]; Protocol Last Admin: 03/20/24 08:27 Dose: 2.5 mg Atorvastatin Calcium (Atorvastatin 40 Mg Tab) 40 mg PO DAILY [facility] Last Admin: 03/20/24 08:27 Dose: 40 mg Budesonide (Budesonide 1 Mg/2 Ml Nebu) 1 mg INHALATION RT-BID [facility] Last Admin: 03/20/24 08:05 Dose: 1 mg Formoterol Fumarate (Formoterol Fumarate 20 Mcg/2 Ml Nebu) 20 mcg INHALATION RT-BID [facility] Last Admin: 03/20/24 08:05 Dose: 20 mcg Furosemide (Furosemide 40 Mg Tab) 40 mg PO DAILY [facility] Last Admin: 03/20/24 08:27 Dose: 40 mg Furosemide (Furosemide 20 Mg Tab) 20 mg PO DAILY@1600 [facility]ON Losartan Potassium (Losartan 25 Mg Tab) 25 mg PO DAILY [facility] Last Admin: 03/20/24 08:27 Dose: 25 mg Methylprednisolone Sodium Succinate (Methylprednisolone Sod Succi 125 Mg/2 Ml Vial) 60 mg IV Q6HR [facility] Last Admin: 03/20/24 12:03 Dose: 60 mg Miscellaneous Information (Potassium Replacement Protocol 1 Each Misc) 1 each MISCELLANE DAILY PRN; Protocol PRN Reason: Per Protocol Morphine Sulfate (Morphine Sulfate 2 Mg/Ml Syringe) 2 mg IVP Q4HR PRN PRN Reason: Pain/Discomfort Pantoprazole Sodium (Pantoprazole 40 Mg Tablet) 40 mg PO AC-BRKFST [facility] PHYSICAL EXAMINATION: GENERAL: The patient is alert and oriented x3, Well developed, well nourished. Elderly appearing, ill-appearing, obese HEENT: Pupils are round and equally reacting to light. EOMI. no scleral icterus. No conjunctival pallor. Normocephalic, atraumatic. No pharyngeal erythema. No thyromegaly. CARDIOVASCULAR: S1 and S2 muffled PULMONARY: diminished breath sounds bilaterally with some scattered expiratory wheezing and coarse rhonchi noted. ABDOMEN: soft. Nontender on exam. obese. non-distended, normoactive bowel sounds. No palpable organomegaly. MUSCULOSKELETAL: No joint swelling or deformity. EXTREMITIES: No cyanosis, clubbing, or pedal edema. Chronic lower extremity edema NEUROLOGICAL: Gross neurological examination did not reveal any focal deficits. Diffuse weakness SKIN: No rashes. Assessment: Acute on chronic hypoxic hypercarbic respiratory failure, multifactorial including COPD, acute exacerbation with acute on chronic systolic dysfunction CHF exacerbation History of congestive heart failure systolic dysfunction, most recent EF is 45% Acute respiratory acidosis, improving Chronic atrial fibrillation history Hypertension Secondary pulmonary hypertension with prominent right hilum History of NSTEMI Chronic cor pulmonale Acute metabolic encephalopathy secondary to CO2 narcosis, improved Generalized weakness with gait dysfunction Obesity with a BMI of 33.6 GI prophylaxis DVT prophylaxis No code Plan: Recommend to continue with current medications and management and continues in the ICU although is a downgrade once a bed is available. Pulmonary, cardiology, neurology following Mentation is much improved and currently baseline. Patient has used BiPAP overnight and will continue as needed. Discussed with the patient about being compliant with CPAP machine as apparently she has not been wearing that and tolerates maximum 1 hour per night. Patient chronically wears oxygen and will continue on current regimen. Continue with IV steroids along with DuoNeb treatments with pulmonary molding machine operator helper following Patient has transition to oral Lasix and home meds have been reviewed and resumed as appropriate. Will have PT/OT therapy evaluate the patient and discussed with case management/social work along with family regarding discharge planning. Due to multiple complex medical issues, prognosis is guarded The impression and plan of care has been dictated by Veronica Iqbal, nurse practitioner as directed. Dr. Ric MD I have performed a history and examination and MDM of this patient, discussed the same with the dictator, and agree with the dictator's assessment and plan as written ,documented as a scribe. Based on total visit time, I have performed more than 50% of the visit. Any additional findings or plans will be noted. Objective - Vital Signs Vital signs: Vital Signs Temp 99.2 F 03/20/24 08:00 Pulse 95 03/20/24 11:27 Resp 20 03/20/24 11:00 BP 135/79 03/20/24 10:00 Pulse Ox 93 L 03/20/24 11:00 FiO2 35 03/20/24 04:06 Intake & Output 03/19/24 03/20/24 03/20/24 18:59 06:59 18:59 Intake Total 50 300 Output Total 780 840 120 Balance -730 -840 180 Weight 90.5 kg 88.7 kg Intake: IV 50 [id number] 1 gm In 50 Sodium Chloride 0.9% 50 ml @ 100 mls/hr IVPB Q24HR [facility] Rx#:[id number] Oral 300 Output: Urine 780 840 120 Other: Voiding Method Indwelling Catheter Indwelling Catheter Indwelling Catheter # Bowel Movements 1 - Labs CBC & Chem 7: 03/20/24 06:37 03/20/24 13:54 Labs: Abnormal Lab Results - Last 24 Hours (Table) 03/20/24 03/20/24 Range/Units 06:37 06:37 WBC 11.5 H (3.8-10.6) k/uL Hgb 11.3 L (11.4-16.0) gm/dL MCHC 30.3 L (31.0-37.0) g/dL Plt Count 143 L (150-450) k/uL Neutrophils # 10.6 H (1.3-7.7) k/uL Lymphocytes # 0.4 L (1.0-4.8) k/uL Potassium 3.1 L (3.5-5.1) mmol/L Chloride 82 L (98-107) mmol/L Carbon Dioxide 52 H* (22-30) mmol/L BUN 51 H (7-17) mg/dL Glucose 160 H (74-99) mg/dL Microbiology - Last 24 Hours (Table) 03/18/24 14:15 Blood Culture - Preliminary Blood
[2024-03-20] MEDS: MAGNESIUM SULFATE-D5W PMX 1 GM in DEXTROSE/WATER 1 100ML.BAG IVPB SCH (15:27)
[2024-03-20] MEDS: FUROSEMIDE 20 MG TAB PO SCH (15:27)
[2024-03-21] MEDS: PANTOPRAZOLE 40 MG TABLET PO SCH (06:06)
[2024-03-21 06:30] LABS: Basophils % (A) 0 %; Eosinophils % (A) 0 %; HCT 37.1 % (34.0-46.0); HGB 11.3 gm/dL (11.4-16.0); Lymphocytes # (A) 0.4 k/uL (1.0-4.8); Lymphocytes % (A) 3 %; MCH 29.6 pg (25.0-35.0); MCHC 30.5 g/dL (31.0-37.0); MCV 97.2 fL (80.0-100.0); Mean Platelet Volume 7.7; Monocytes # (A) 0.5 k/uL (0-1.0); Monocytes % (A) 4 %; Neutrophils # (A) 12.6 k/uL (1.3-7.7); Neutrophils % (A) 93 %; Platelet Count 191 k/uL (150-450); RBC 3.82 m/uL (3.80-5.40); RDW 13.9 % (11.5-15.5); WBC 13.5 k/uL (3.8-10.6)
[2024-03-21 06:48] LABS: African American GFR (CKD) 48 (>60 ml/min/1.73 sqM); Blood Urea Nitrogen 48 mg/dL (7-17); Calcium 9.2 mg/dL (8.4-10.2); Chloride 86 mmol/L (98-107); Glucose 138 mg/dL (74-99); Magnesium 2.3 mg/dL (1.6-2.3); Non-African American GFR(CKD) 41 (>60 ml/min/1.73 sqM); Potassium 4.1 mmol/L (3.5-5.1); Sodium 136 mmol/L (137-145)
[2024-03-21 06:55] LABS: Anion Gap 2 mmol/L
[2024-03-21 07:24] LABS: Carbon Dioxide 48 mmol/L (22-30)
--- NOTE | 2024-03-21 08:06 | XR ---
EXAMINATION TYPE: XR chest 1V portable DATE OF EXAM: 03/21/2024 Comparison: 03/20/2024 Clinical History: 78-year-old female BiPAP dependent respiratory failure Findings: Heart mildly enlarged. Relative lucencies. Some stranding atelectasis in the lower lungs remains. The large central main pulmonary arteries. Impression: Cardiomegaly, COPD, pulmonary arterial hypertension. Strandy bibasilar atelectasis. Interstitium appe ars to have normalized.
--- NOTE | 2024-03-21 10:08 | P.PN ---
Subjective Progress Note Date: 03/20/24 Patient was seen for a follow-up. Patient is fully alert and awake. Patient offers no complaints. Her breathing is much comfortable. Objective - Vital Signs Vital signs: Vital Signs Temp 97.8 F 03/21/24 08:00 Pulse 85 03/21/24 10:00 Resp 16 03/21/24 10:00 BP 138/67 03/21/24 08:00 Pulse Ox 92 L 03/21/24 10:00 FiO2 35 03/21/24 04:10 Intake & Output 03/20/24 03/21/24 03/21/24 18:59 06:59 18:59 Intake Total 1000 Output Total 470 625 Balance 530 -625 Weight 90.6 kg Intake: IV 200 Magnesium Sulfate-D5w Pmx 200 1 gm In Dextrose/Water 1 100ml.bag @ 100 mls/hr IVPB Q1H [facility] Rx#: [id number] Oral 800 Output: Urine 470 625 Other: Voiding Method Indwelling Catheter Indwelling Catheter - Exam Patient is alert and awake. Her pupils are now equal, round and reactive to light. Patient is fully oriented, knows it is 03/20/2024 and that she is in [facility] in [place] and name of the current president Mr. Forbes. Cranial nerves are normal, visual gan are full. Face is symmetric and tongue protrudes midline. On muscle strength testing there is no pronator drift and the strength is normal in arms and legs. Sensory to touch is equal. No ataxia. - Labs CBC & Chem 7: 03/21/24 05:57 03/21/24 05:57 Labs: Abnormal Lab Results - Last 24 Hours (Table) 03/20/24 03/21/24 03/21/24 Range/Units 13:54 05:57 05:57 WBC 13.5 H (3.8-10.6) k/uL Hgb 11.3 L (11.4-16.0) gm/dL MCHC 30.5 L (31.0-37.0) g/dL Neutrophils # 12.6 H (1.3-7.7) k/uL Lymphocytes # 0.4 L (1.0-4.8) k/uL Sodium 136 L (137-145) mmol/L Potassium 3.4 L (3.5-5.1) mmol/L Chloride 86 L (98-107) mmol/L Carbon Dioxide 48 H* (22-30) mmol/L BUN 48 H (7-17) mg/dL Creatinine 1.24 H (0.52-1.04) mg/dL Glucose 138 H (74-99) mg/dL Microbiology - Last 24 Hours (Table) 03/18/24 14:15 Blood Culture - Preliminary Blood Assessment and Plan Assessment: * Anisocoria, probably due to CO2 retention, or related to use of bronchodilators. Patient's examination is normal. Patient's pupils are now equal, round and reacting. * Metabolic encephalopathy, likely due to CO2 narcosis. Resolved. Mentation completely normal. * Acute on chronic hypoxemic and hypercapnic respiratory failure * COPD * Chronic atrial fibrillation * Hypertension * Hyperlipidemia Plan: * Patient's neurological examination is normal. * Anisocoria is completely resolved. Her pupils are equal, round and reacting. * Treatment of other medical conditions as per IM, critical care and other specialties. * Patient on Eliquis 2.5 mg twice daily for atrial fibrillation. * CT head is normal. Neurologically, no other workup indicated. * Patient had a normal carotid Doppler on 12/08/2019. * Discussed with patient's nurse in detail. * Neurology will sign off. Please reconsult neurology if any concerns.
--- NOTE | 2024-03-21 10:45 | P.PN ---
Subjective Progress Note Date: 03/21/24 Principal diagnosis: Respiratory failure. This is a 78-year-old female, familiar to my service, patient is known to have history of severe COPD, obstructive sleep apnea syndrome, patient has chronic hypoxic respiratory failure maintained on 1.5 L nasal cannula, she has pulmonary hypertension and history of prominent hilar pulmonary vasculature. Patient was brought in by family mostly because she has been noticed to be extremely weak, fatigued, falling asleep most of the time, difficult to keep her awake. No history of injury or head trauma, no headache, no dizziness, no blurred vision workup in the ER included a chest x-ray which was highly suspicious for pulmonary edema. WBC count is 11.7 hemoglobin 12.7, basic metabolic profile is normal except for elevated bicarb of 46 potassium is high at 5.6. Screening for influenza A influenza B, RSV and COVID-19 all negative. Drug screen positive only for benzodiazepines ABG is very abnormal showing a pO2 of 57 pCO2 119 pH of 7.22 and this was on 2 L nasal cannula I was notified about this patient's ABG and I ran down to the ER, evaluated the patient, I recommended placing the patient on BiPAP 18/8/40%, discussed CODE STATUS with the family, and the patient is presently no code. This was clearly expressed previously according to the daughter and by the patient and I believe I have discussed this CODE STATUS in the past with the patient and she is DNR. At any rate considering her profound hypercapnia and respiratory acidosis, I recommended admission of the patient to the ICU. In the meantime I adjusted her BiPAP, patient will be receiving Lasix for her pulmonary edema, and she will be placed on bronchodilators for her underlying COPD Progress note dated March 19, 2024. 78-year-old female seen in consultation yesterday, and admitted with a diagnosis of COPD exacerbation, sleep apnea syndrome, chronic respiratory failure, among other things. The patient is seen today in room 263. She was admitted on March 18. She is on BiPAP, with settings of 18/8, and 35%. She is getting saline at about 5 cc an hour. Her procalcitonin level is 0.04. Antibiotics will be discontinued. She was taken off BiPAP for short period of time, to eat, but she did poorly, was placed back on BiPAP. Current labs include a white count 13.8, hemoglobin 12.2, hematocrit 39.2, and a normal platelet count. Sodium 140, potassium 4.1, chlorides 83, CO2 52, BUN 36, creatinine 0.94. Glucose is 102. Albumin 3.2. N-terminal proBNP is 2380. Chest x-ray shows changes of COPD, cardiomegaly, and some interstitial changes, which may relate to fluid overload and or atelectasis. Progress note dated March 20, 2024. 78-year-old female seen today in room 263. Currently she is on 2 L of oxygen. She did use the BiPAP overnight with settings of 18/8, and 35%. She not receiving any IV fluids. Currently, she is doing much better clinically. She feels much less short of breath. Current labs include white count 11.5, hemoglobin 11.3, hematocrit 37.2, and a platelet count of 143,000. Sodium 138, potassium 3.1, chlorides 82, CO2 52, BUN 51, creatinine 1.02. Glucose is 160. Blood cultures are currently pending are negative. Chest x-ray shows changes of cardiomegaly, COPD, and pulmonary arterial hypertension. Progress note dated March 21, 2024. 78-year-old female seen today in room 263. Currently, she is on 2 L of oxygen. She did use the BiPAP last night with settings of 18/8, and 35%. She is not receiving any IV fluids. The patient is stable from my perspective, could be transferred out of the intensive care unit, to the general medical floor. She is improved dramatically over the last 48 hours. White count is 13.5, hemoglobin 11.3, hematocrit 37.1, and platelet count 191,000. Sodium 136, p otassium 4.1, chloride 86, CO2 48, BUN 48, and creatinine 1.24. Glucose is 138. Calcium 9.2, magnesium 2.3. Chest x-ray shows evidence of cardiomegaly, changes of COPD, pulmonary arterial hypertension. There is some basilar atelectasis as well. Objective - Vital Signs Vital signs: Vital Signs Temp 97.8 F 03/21/24 08:00 Pulse 85 03/21/24 10:00 Resp 16 03/21/24 10:00 BP 138/67 03/21/24 08:00 Pulse Ox 92 L 03/21/24 10:00 FiO2 35 05/15/24 04:10 Intake & Output 03/20/24 03/21/24 03/21/24 18:59 06:59 18:59 Intake Total 1000 Output Total 470 625 Balance 530 -625 Weight 90.6 kg Intake: IV 200 Magnesium Sulfate-D5w Pmx 200 1 gm In Dextrose/Water 1 100ml.bag @ 100 mls/hr IVPB Q1H [facility] Rx#: [id number] Oral 800 Output: Urine 470 625 Other: Voiding Method Indwelling Catheter Indwelling Catheter Indwelling Catheter - Exam No acute distress, oriented 3. Currently on nasal O2 at 2 L. HEENT examination is grossly unremarkable. Neck supple. Full range of motion. No adenopathy thyromegaly or neck vein distention. Cardiovascular examination reveals regular rhythm rate. S1-S2 normal. No S3 or S4. No discernible murmur noted. Heart sounds are distant. Heart rate 85 bpm. Lungs reveal coarse bilateral expiratory rhonchi and wheezes. Breath sounds are equal. No crackles. Saturations are 92 % on 2 L. Abdomen soft, without bowel sounds. Abdomen is obese. No masses. Extremities are intact. No cyanosis clubbing or significant edema. Skin is without rash or lesion. Neurologic examination is brief but nonfocal. - Labs CBC & Chem 7: 03/21/24 05:57 03/21/24 05:57 Labs: Abnormal Lab Results - Last 24 Hours (Table) 03/20/24 03/21/24 03/21/24 Range/Units 13:54 05:57 05:57 WBC 13.5 H (3.8-10.6) k/uL Hgb 11.3 L (11.4-16.0) gm/dL MCHC 30.5 L (31.0-37.0) g/dL Neutrophils # 12.6 H (1.3-7.7) k/uL Lymphocytes # 0.4 L (1.0-4.8) k/uL Sodium 136 L (137-145) mmol/L Potassium 3.4 L (3.5-5.1) mmol/L Chloride 86 L (98-107) mmol/L Carbon Dioxide 48 H* (22-30) mmol/L BUN 48 H (7-17) mg/dL Creatinine 1.24 H (0.52-1.04) mg/dL Glucose 138 H (74-99) mg/dL Microbiology - Last 24 Hours (Table) 03/18/24 14:15 Blood Culture - Preliminary Blood Assessment and Plan Assessment: Acute on chronic hypoxemic and hypercapnic respiratory failure in a patient with severe COPD, and possible underlying CHF. Chronic atrial fibrillation. Chronic hypoxemic and hypercapnic respiratory failure. Benign essential hypertension. Truncal obesity. Chronic cor pulmonale. Hyperlipidemia. Secondary pulmonary hypertension. Metabolic encephalopathy secondary to CO2 narcosis. Plan: Plan dated March 19, 2024. The patient was admitted on March 18. She was admitted with a diagnosis of acute hypoxemic and hypercapnic respiratory failure, secondary to severe COPD. The patient is currently BiPAP dependent. She is on settings of 18/8 and 35%. She is getting saline at 5 cc an hour. Procalcitonin level was 0.04. Antibiotics were discontinued. Chest x-ray shows some improvement. We will continue to follow make recommendations along the way. Labs, x-rays, and medications are all reviewed. The patient continues on GI DVT prophylaxis. The patient continues on Eliquis. Prognosis is certainly guarded. In the end, the patient may require intubation, but she is a no code patient. The patient was taken off of BiPAP for short period of time, but he needed to be restarted right away, as the patient desaturated. Plan dated March 20, 2024. The patient is doing much better. The patient is currently on 2 L of oxygen. She is using the BiPAP device at nighttime exclusively. Labs, x-rays, medications are reviewed. She is on appropriate medications including bronchodilators, and corticosteroids. We will continue to follow the patient, and make recommendations along the way. She continues on Pulmicort, formoterol, albuterol sulfate, ipratropium bromide, and Solu-Medrol. Labs, x-rays, and medications are all reviewed. Prognosis is guarded. Plan dated March 21, 2024. The patient is seen today in room 263. She is on 2 L of oxygen. She did use BiPAP last night. The patient has improved significantly over the last 48 hours. Her breathing is much improved. The patient continues on Pulmicort, formoterol, DuoNebs, and Solu-Medrol. The patient is currently not on any antibiotics. We will continue to follow the patient, make recommendations along the way. Prognosis is thought to be generally good. Labs, x-rays, and all medications are reviewed. Time with Patient: Less than 30
[2024-03-21] MEDS: SENNOSIDES 8.6 MG TAB PO SCH (14:27)
[2024-03-22] MEDS ORDERED: ACETAMINOPHEN TAB 325 MG TAB PO PRN (03:54)
--- NOTE | 2024-03-22 04:02 | P.PN ---
Subjective Progress Note Date: 03/21/24 This is a 78-year-old female who was recently admitted with acute hypoxic hypercarbic respiratory failure secondary to COPD as well as CHF exacerbation and possibly obstructive sleep apnea. Patient apparently is supposed to be wearing a CPAP machine although per family patient does not wear this if she cannot tolerate the mask and takes it off frequently. Patient is currently transition from BiPAP and on 2 to 3 L via nasal cannula and weaning as tolerated. Chest x-ray today shows cardiomegaly, COPD, pulmonary artery hypertension with some improvements in the interstitium. Patient is a downgrade out of the ICU once a bed becomes available on [facility] [place]. White count is trending down 11.5, hemoglobin is stable at 11.3 and platelets are 143. Sodium is 138 with a potassium of 3.1 after repeat is 3.4 and will replace per protocol. Carbon dioxide remains elevated at 52 with a BUN of 51 and creatinine is 1.02. Blood sugars are being monitored and will continue with current regimen. Magnesium is 1.6 and will replace per protocol. Will discuss with case management/social work along with family and patient regarding discharge planning. As of right now plans are for returning home. Patient with significant weakness and noncompliance will have PT/OT therapy evaluate the patient. Patient is currently afebrile with no reports of chest pain or palpitations. Patient denies worsening shortness of breath and reports is slightly improved. No reported nausea or vomiting and patient is tolerating diet. Continue DuoNeb treatments along with IV steroids and other inhalers. 03/21/2024 Patient is seen in follow-up continues to be in the ICU although is a downgrade when a bed is available. Patient has had improvement in oxygen saturation and maintaining nasal cannula throughout the day and using BiPAP at night. Patient reports her breathing is improved and her mentation is improved as well. Will have PT/OT therapy evaluate the patient as patient is significantly weak although reports will be going home on discharge. Patient is afebrile with no reports of chest pain or worsening shortness of breath. Encouraged oral intake and small frequent meals. Patient has not had a bowel movement in a few days. Will add a stool softener Review of systems: Constitutional: reports of fatigue, no fever, or chills Cardiovascular: No reports of chest pain or palpitations Respiratory: No reports of worsening shortness of breath, reports feeling slightly improved GI: No reports of nausea, no reports of vomiting, no diarrhea : No reports of dysuria or retention Neurovascular: reports of generalized weakness All medications have been reviewed Active Medications Albuterol/Ipratropium (Ipratropium-Albuterol 3 Ml Neb) 3 ml INHALATION RT-TID PRN PRN Reason: Shortness Of Breath Or Wheezing Last Admin: 03/20/24 04:06 Dose: 3 ml Albuterol/Ipratropium (Ipratropium-Albuterol 3 Ml Neb) 3 ml INHALATION RT-QID [facility] Last Admin: 03/20/24 11:23 Dose: 3 ml Apixaban (Apixaban 2.5 Mg Tablet) 2.5 mg PO BID [facility]; Protocol Last Admin: 03/20/24 08:27 Dose: 2.5 mg Atorvastatin Calcium (Atorvastatin 40 Mg Tab) 40 mg PO DAILY [facility] Last Admin: 03/20/24 08:27 Dose: 40 mg Budesonide (Budesonide 1 Mg/2 Ml Nebu) 1 mg INHALATION RT-BID [facility] Last Admin: 03/20/24 08:05 Dose: 1 mg Formoterol Fumarate (Formoterol Fumarate 20 Mcg/2 Ml Nebu) 20 mcg INHALATION RT-BID [facility] Last Admin: 03/20/24 08:05 Dose: 20 mcg Furosemide (Furosemide 40 Mg Tab) 40 mg PO DAILY [facility] Last Admin: 03/20/24 08:27 Dose: 40 mg Furosemide (Furosemide 20 Mg Tab) 20 mg PO DAILY@1600 DELON Losartan Potassium (Losartan 25 Mg Tab) 25 mg PO DAILY [facility] Last Admin: 03/20/24 08:27 Dose: 25 mg Methylprednisolone Sodium Succinate (Methylprednisolone Sod Succi 125 Mg/2 Ml V ial) 60 mg IV Q6HR [facility] Last Admin: 03/20/24 12:03 Dose: 60 mg Miscellaneous Information (Potassium Replacement Protocol 1 Each Misc) 1 each MISCELLANE DAILY PRN; Protocol PRN Reason: Per Protocol Morphine Sulfate (Morphine Sulfate 2 Mg/Ml Syringe) 2 mg IVP Q4HR PRN PRN Reason: Pain/Discomfort Pantoprazole Sodium (Pantoprazole 40 Mg Tablet) 40 mg PO AC-[id number] [facility] PHYSICAL EXAMINATION: GENERAL: The patient is alert and oriented x3, Well developed, well nourished. Elderly appearing, ill-appearing, obese HEENT: Pupils are round and equally reacting to light. EOMI. no scleral icterus. No conjunctival pallor. Normocephalic, atraumatic. No pharyngeal erythema. No thyromegaly. CARDIOVASCULAR: S1 and S2 muffled PULMONARY: diminished breath sounds bilaterally with some scattered expiratory wheezing and coarse rhonchi noted. ABDOMEN: soft. Nontender on exam. obese. non-distended, normoactive bowel sounds. No palpable organomegaly. MUSCULOSKELETAL: No joint swelling or deformity. EXTREMITIES: No cyanosis, clubbing, or pedal edema. Chronic lower extremity edema NEUROLOGICAL: Gross neurological examination did not reveal any focal deficits. Diffuse weakness SKIN: No rashes. Assessment: Acute on chronic hypoxic hypercarbic respiratory failure, multifactorial incl uding COPD, acute exacerbation with acute on chronic systolic dysfunction CHF exacerbation History of congestive heart failure systolic dysfunction, most recent EF is 45% Acute respiratory acidosis, improving Chronic atrial fibrillation history Hypertension Secondary pulmonary hypertension with prominent right hilum History of NSTEMI Chronic cor pulmonale Acute metabolic encephalopathy secondary to CO2 narcosis, improved Generalized weakness with gait dysfunction Obesity with a BMI of 33.6 GI prophylaxis DVT prophylaxis No code Plan: Recommend to continue with current medications and management and continues in the ICU although is a downgrade once a bed is available. Pulmonary, cardiology, neurology following Mentation is much improved and currently baseline. Patient has used BiPAP overnight and will continue as needed. Discussed with the patient about being compliant with CPAP machine as apparently she has not been wearing that and tolerates maximum 1 hour per night. Patient chronically wears oxygen and will continue on current regimen. Continue with IV steroids along with DuoNeb treatments with pulmonary auto service representative following Patient has transition to oral Lasix and home meds have been reviewed and resumed as appropriate. Will have PT/OT therapy evaluate the patient and discussed with case management/social work along with family regarding discharge planning. Patient is adamant she is going home on discharge Due to multiple complex medical issues, prognosis is guarded The impression and plan of care has been dictated by Veronica Iqbal, nurse practitioner as directed. Dr. Ric MD I have performed a history and examination and MDM of this patient, discussed the same with the dictator, and agree with the dictator's assessment and plan as written ,documented as a scribe. Based on total visit time, I have performed more than 50% of the visit. Any additional findings or plans will be noted. Objective - Vital Signs Vital signs: Vital Signs Temp 97.8 F 03/21/24 08:00 Pulse 86 03/21/24 12:00 Resp 18 03/21/24 12:00 BP 138/67 03/21/24 08:00 Pulse Ox 99 03/21/24 12:00 FiO2 35 03/21/24 04:10 Intake & Output 03/20/24 03/21/24 03/21/24 18:59 06:59 18:59 Intake Total 1000 Output Total 470 625 180 Balance 530 -625 -180 Weight 90.6 kg Intake: IV 200 Magnesium Sulfate-D5w Pmx 200 1 gm In Dextrose/Water 1 100ml.bag @ 100 mls/hr IVPB Q1H DELON Rx#: [id number] Oral 800 Output: Urine 470 625 180 Other: Voiding Method Indwelling Catheter Indwelling Catheter Indwelling Catheter - Labs CBC & Chem 7: 03/21/24 05:57 03/21/24 05:57 Labs: Abnormal Lab Results - Last 24 Hours (Table) 03/20/24 03/21/24 03/21/24 Range/Units 13:54 05:57 05:57 WBC 13.5 H (3.8-10.6) k/uL Hgb 11.3 L (11.4-16.0) gm/dL MCHC 30.5 L (31.0-37.0) g/dL Neutrophils # 12.6 H (1.3-7.7) k/uL Lymphocytes # 0.4 L (1.0-4.8) k/uL Sodium 136 L (137-145) mmol/L Potassium 3.4 L (3.5-5.1) mmol/L Chloride 86 L (98-107) mmol/L Carbon Dioxide 48 H* (22-30) mmol/L BUN 48 H (7-17) mg/dL Creatinine 1.24 H (0.52-1.04) mg/dL Glucose 138 H (74-99) mg/dL Microbiology - Last 24 Hours (Table) 03/18/24 14:15 Blood Culture - Preliminary Blood
[2024-03-22 05:07] LABS: Basophils % (A) 0 %; Eosinophils % (A) 0 %; HCT 35.8 % (34.0-46.0); HGB 11.1 gm/dL (11.4-16.0); Lymphocytes # (A) 0.2 k/uL (1.0-4.8); Lymphocytes % (A) 2 %; MCHC 31.1 g/dL (31.0-37.0); MCV 96.5 fL (80.0-100.0); Mean Platelet Volume 7.7; Monocytes # (A) 0.3 k/uL (0-1.0); Monocytes % (A) 3 %; Neutrophils # (A) 9.8 k/uL (1.3-7.7); Neutrophils % (A) 95 %; Platelet Count 148 k/uL (150-450); RDW 13.9 % (11.5-15.5); WBC 10.3 k/uL (3.8-10.6)
[2024-03-22 05:22] LABS: African American GFR (CKD) 61 (>60 ml/min/1.73 sqM); Blood Urea Nitrogen 48 mg/dL (7-17); Chloride 86 mmol/L (98-107); Glucose 151 mg/dL (74-99); Non-African American GFR(CKD) 53 (>60 ml/min/1.73 sqM); Potassium 3.4 mmol/L (3.5-5.1); Sodium 135 mmol/L (137-145)
[2024-03-22 05:28] LABS: Anion Gap 3 mmol/L
[2024-03-22 05:52] LABS: Carbon Dioxide 46 mmol/L (22-30)
[2024-03-22] MEDS: POTASSIUM CHLORIDE ER 20 MEQ TAB.ER PO SCH (06:03)
[2024-03-22] MEDS: predniSONE 20 MG TAB PO SCH (08:47)
--- NOTE | 2024-03-22 08:55 | XR ---
EXAMINATION TYPE: XR chest 1V portable DATE OF EXAM: 03/22/2024 Comparison: 03/21/2024 Clinical History: 78-year-old female BiPAP dependent respiratory failure Findings: The heart is moderately enlarged. Large central main pulmonary arteries. Hazy lung densities related to overlying soft tissue. The left base in particular is underpenetrated and not well assessed. Relat den upper lung lucencies. Impression: Moderate cardiomegaly, COPD, and pulmonary arterial hypertension. Lower lungs are underpenetrated and not well assessed. No definite acute process.
--- NOTE | 2024-03-22 10:16 | P.PN ---
Subjective Progress Note Date: 03/22/24 Principal diagnosis: Respiratory failure. This is a 78-year-old female, familiar to my service, patient is known to have history of severe COPD, obstructive sleep apnea syndrome, patient has chronic hypoxic respiratory failure maintained on 1.5 L nasal cannula, she has pulmonary hypertension and history of prominent hilar pulmonary vasculature. Patient was brought in by family mostly because she has been noticed to be extremely weak, fatigued, falling asleep most of the time, difficult to keep her awake. No history of injury or head trauma, no headache, no dizziness, no blurred vision workup in the ER included a chest x-ray which was highly suspicious for pulmonary edema. WBC count is 11.7 hemoglobin 12.7, basic metabolic profile is normal except for elevated bicarb of 46 potassium is high at 5.6. Screening for influenza A influenza B, RSV and COVID-19 all negative. Drug screen positive only for benzodiazepines ABG is very abnormal showing a pO2 of 57 pCO2 119 pH of 7.22 and this was on 2 L nasal cannula I was notified about this patient's ABG and I ran down to the ER, evaluated the patient, I recommended placing the patient on BiPAP 18/8/40%, discussed CODE STATUS with the family, and the patient is presently no code. This was clearly expressed previously according to the daughter and by the patient and I believe I have discussed this CODE STATUS in the past with the patient and she is DNR. At any rate considering her profound hypercapnia and respiratory acidosis, I recommended admission of the patient to the ICU. In the meantime I adjusted her BiPAP, patient will be receiving Lasix for her pulmonary edema, and she will be placed on bronchodilators for her underlying COPD Progress note dated March 19, 2024. 78-year-old female seen in consultation yesterday, and admitted with a diagnosis of COPD exacerbation, sleep apnea syndrome, chronic respiratory failure, among other things. The patient is seen today in room 263. She was admitted on March 18. She is on BiPAP, with settings of 18/8, and 35%. She is getting saline at about 5 cc an hour. Her procalcitonin level is 0.04. Antibiotics will be discontinued. She was taken off BiPAP for short period of time, to eat, but she did poorly, was placed back on BiPAP. Current labs include a white count 13.8, hemoglobin 12.2, hematocrit 39.2, and a normal platelet count. Sodium 140, potassium 4.1, chlorides 83, CO2 52, BUN 36, creatinine 0.94. Glucose is 102. Albumin 3.2. N-terminal proBNP is 2380. Chest x-ray shows changes of COPD, cardiomegaly, and some interstitial changes, which may relate to fluid overload and or atelectasis. Progress note dated March 20, 2024. 78-year-old female seen today in room 263. Currently she is on 2 L of oxygen. She did use the BiPAP overnight with settings of 18/8, and 35%. She not receiving any IV fluids. Currently, she is doing much better clinically. She feels much less short of breath. Current labs include white count 11.5, hemoglobin 11.3, hematocrit 37.2, and a platelet count of 143,000. Sodium 138, potassium 3.1, chlorides 82, CO2 52, BUN 51, creatinine 1.02. Glucose is 160. Blood cultures are currently pending are negative. Chest x-ray shows changes of cardiomegaly, COPD, and pulmonary arterial hypertension. Progress note dated March 21, 2024. 78-year-old female seen today in room 263. Currently, she is on 2 L of oxygen. She did use the BiPAP last night with settings of 18/8, and 35%. She is not receiving any IV fluids. The patient is stable from my perspective, could be transferred out of the intensive care unit, to the general medical floor. She is improved dramatically over the last 48 hours. White count is 13.5, hemoglobin 11.3, hematocrit 37.1, and platelet count 191,000. Sodium 136, p otassium 4.1, chloride 86, CO2 48, BUN 48, and creatinine 1.24. Glucose is 138. Calcium 9.2, magnesium 2.3. Chest x-ray shows evidence of cardiomegaly, changes of COPD, pulmonary arterial hypertension. There is some basilar atelectasis as well. Progress note dated March 22, 2024. 78-year-old female seen today in room 263. She was admitted with a diagnosis of acute hypoxemic respiratory failure secondary to severe COPD. She is using BiPAP at nighttime. BiPAP settings were 18/8, and 35%. Currently, she is on 2 L of oxygen by nasal cannula. She is not receiving any IV fluids. Today, the budesonide, and formoterol, will be converted to Symbicort 160/4.5, 2 puffs twice a day, and the Solu-Medrol will be changed to prednisone, 40 mg a day. The patient is able to be transferred out of the intensive care unit. Current labs include a white count 10.3, hemoglobin 11.1, hematocrit 35.8, and a platelet count of 148,000. Sodium 135, potassium 3.4, chlorides 86, CO2 46, anion gap normal, BUN 48, creatinine 1.01. Glucose is 151. Calcium is 9. Blood cultures are negative. Chest x-ray again shows evidence of cardiomegaly, COPD changes, and pulmonary arterial hypertension. Objective - Vital Signs Vital signs: Vital Signs Temp 97.7 F 03/22/24 08:00 Pulse 80 03/22/24 08:35 Resp 21 03/22/24 08:00 BP 126/66 03/22/24 08:00 Pulse Ox 96 03/22/24 08:00 FiO2 35 03/22/24 03:22 Intake & Output 03/21/24 03/22/24 03/22/24 18:59 06:59 18:59 Intake Total 400 Output Total 875 350 275 Balance -875 50 -275 Weight 90.3 kg Intake: Oral 400 Output: Urine 875 350 275 Other: Voiding Method Indwelling Catheter Indwelling Catheter Indwelling Catheter # Bowel Movements 1 - Exam No acute distress, oriented 3. Currently on nasal O2 at 2 L. HEENT examination is grossly unremarkable. Neck supple. Full range of motion. No adenopathy thyromegaly or neck vein distention. Cardiovascular examination reveals regular rhythm rate. S1-S2 normal. No S3 or S4. No discernible murmur noted. Heart sounds are distant. Heart rate 80 bpm. Lungs reveal coarse bilateral expiratory rhonchi and wheezes. Breath sounds are equal. No crackles. Saturations are 96 % on 2 L. Abdomen soft, without bowel sounds. Abdomen is obese. No masses. Extremities are intact. No cyanosis clubbing or significant edema. Skin is without rash or lesion. Neurologic examination is brief but nonfocal. - Labs CBC & Chem 7: 03/22/24 04:00 03/22/24 04:00 Labs: Abnormal Lab Results - Last 24 Hours (Table) 03/22/24 03/22/24 Range/Units 04:00 04:00 RBC 3.70 L (3.80-5.40) m/uL Hgb 11.1 L (11.4-16.0) gm/dL Plt Count 148 L (150-450) k/uL Neutrophils # 9.8 H (1.3-7.7) k/uL Lymphocytes # 0.2 L (1.0-4.8) k/uL Sodium 135 L (137-145) mmol/L Potassium 3.4 L (3.5-5.1) mmol/L Chloride 86 L (98-107) mmol/L Carbon Dioxide 46 H* (22-30) mmol/L BUN 48 H (7-17) mg/dL Glucose 151 H (74-99) mg/dL Microbiology - Last 24 Hours (Table) 03/18/24 14:15 Blood Culture - Preliminary Blood Assessment and Plan Assessment: Acute on chronic hypoxemic and hypercapnic respiratory failure in a patient with severe COPD, and possible underlying CHF. Chronic atrial fibrillation. Chronic hypoxemic and hypercapnic respiratory failure. Benign essential hypertension. Truncal obesity. Chronic cor pulmonale. Hyperlipidemia. Secondary pulmonary hypertension. Metabolic encephalopathy secondary to CO2 narcosis. Plan: Plan dated March 19, 2024. The patient was admitted on March 18. She was admitted with a diagnosis of acute hypoxemic and hypercapnic respiratory failure, secondary to severe COPD. The patient is currently BiPAP dependent. She is on settings of 18/8 and 35%. She is getting saline at 5 cc an hour. Procalcitonin level was 0.04. Antibiotics were discontinued. Chest x-ray shows some improvement. We will continue to follow make recommendations along the way. Labs, x-rays, and medications are all reviewed. The patient continues on GI DVT prophylaxis. The patient continues on Eliquis. Prognosis is certainly guarded. In the end, the patient may require intubation, but she is a no code patient. The patient was taken off of BiPAP for short period of time, but he needed to be restarted right away, as the patient desaturated. Plan dated March 20, 2024. The patient is doing much better. The patient is currently on 2 L of oxygen. She is using the BiPAP device at nighttime exclusively. Labs, x-rays, medications are reviewed. She is on appropriate medications including bronchodilators, and corticosteroids. We will continue to follow the patient, and make recommendations along the way. She continues on Pulmicort, formoterol, albuterol sulfate, ipratropium bromide, and Solu-Medrol. Labs, x-rays, and medications are all reviewed. Prognosis is guarded. Plan dated March 21, 2024. The patient is seen today in room 263. She is on 2 L of oxygen. She did use BiPAP last night. The patient has improved significantly over the last 48 hours. Her breathing is much improved. The patient continues on Pulmicort, formoterol, DuoNebs, and Solu-Medrol. The patient is currently not on any antibiotics. We will continue to follow the patient, make recommendations along the way. Prognosis is thought to be generally good. Labs, x-rays, and all medications are reviewed. Plan dated March 22, 2024. The patient appears to be doing relatively well. The patient continues on oxygen at 2 L by nasal cannula during the daytime, and uses BiPAP, with settings of 18/8, and 35% at nighttime. Because she is doing so well, the Solu-Medrol will be converted to prednisone 40 mg a day, and breathing treatments with budesonide, and formoterol, will be changed to Symbicort 160/4.5, 2 puffs twice a day. Labs, x-rays, and medications are reviewed. The patient needs to follow-up with my partner after discharge. The patient is stable enough to be discharged out of the intensive care unit. Time with Patient: Less than 30
[2024-03-22 13:09] VITALS: RESP 16
[2024-03-22] MEDS: SYMBICORT 160-4.5 MCG INHALER INHALATION SCH (20:31)
[2024-03-23 06:18] LABS: Basophils % (A) 0 %; Eosinophils # (A) 0.1 k/uL (0-0.7); Eosinophils % (A) 1 %; HCT 36.5 % (34.0-46.0); HGB 11.4 gm/dL (11.4-16.0); Lymphocytes # (A) 0.6 k/uL (1.0-4.8); Lymphocytes % (A) 6 %; MCH 30.3 pg (25.0-35.0); MCHC 31.2 g/dL (31.0-37.0); MCV 97.1 fL (80.0-100.0); Monocytes # (A) 0.5 k/uL (0-1.0); Monocytes % (A) 5 %; Neutrophils # (A) 8.8 k/uL (1.3-7.7); Neutrophils % (A) 88 %; Platelet Count 132 k/uL (150-450); RBC 3.76 m/uL (3.80-5.40); RDW 13.8 % (11.5-15.5); WBC 9.9 k/uL (3.8-10.6)
[2024-03-23 06:31] LABS: African American GFR (CKD) 52 (>60 ml/min/1.73 sqM); Blood Urea Nitrogen 49 mg/dL (7-17); Calcium 8.9 mg/dL (8.4-10.2); Chloride 89 mmol/L (98-107); Glucose 101 mg/dL (74-99); Non-African American GFR(CKD) 45 (>60 ml/min/1.73 sqM); Potassium 3.8 mmol/L (3.5-5.1); Sodium 135 mmol/L (137-145)
[2024-03-23 06:39] LABS: Anion Gap 3 mmol/L
[2024-03-23 06:46] LABS: Carbon Dioxide 43 mmol/L (22-30)
[2024-03-23] MEDS: POTASSIUM CHLORIDE ER 20 MEQ TAB.ER PO SCH (07:00)
[2024-03-23 08:36] VITALS: TEMP 97.9
--- NOTE | 2024-03-23 09:32 | P.PN ---
Subjective Progress Note Date: 03/22/24 This is a 78-year-old female who was recently admitted with acute hypoxic hypercarbic respiratory failure secondary to COPD as well as CHF exacerbation and possibly obstructive sleep apnea. Patient apparently is supposed to be wearing a CPAP machine although per family patient does not wear this if she cannot tolerate the mask and takes it off frequently. Patient is currently transition from BiPAP and on 2 to 3 L via nasal cannula and weaning as tolerated. Chest x-ray today shows cardiomegaly, COPD, pulmonary artery hypertension with some improvements in the interstitium. Patient is a downgrade out of the ICU once a bed becomes available on [facility]. White count is trending down 11.5, hemoglobin is stable at 11.3 and platelets are 143. Sodium is 138 with a potassium of 3.1 after repeat is 3.4 and will replace per protocol. Carbon dioxide remains elevated at 52 with a BUN of 51 and creatinine is 1.02. Blood sugars are being monitored and will continue with current regimen. Magnesium is 1.6 and will replace per protocol. Will discuss with case management/social work along with family and patient regarding discharge planning. As of right now plans are for returning home. Patient with significant weakness and noncompliance will have PT/OT therapy evaluate the patient. Patient is currently afebrile with no reports of chest pain or palpitations. Patient denies worsening shortness of breath and reports is slightly improved. No reported nausea or vomiting and patient is tolerating diet. Continue DuoNeb treatments along with IV steroids and other inhalers. 03/21/2024 Patient is seen in follow-up continues to be in the ICU although is a downgrade when a bed is available. Patient has had improvement in oxygen saturation and maintaining nasal cannula throughout the day and using BiPAP at night. Patient reports her breathing is improved and her mentation is improved as well. Will have PT/OT therapy evaluate the patient as patient is significantly weak although reports will be going home on discharge. Patient is afebrile with no reports of chest pain or worsening shortness of breath. Encouraged oral intake and small frequent meals. Patient has not had a bowel movement in a few days. Will add a stool softener 03/22/2024 Patient seen in follow-up today and is in the ICU awaiting a downgrade bed as patient is relatively stable. Patient is using BiPAP at night and tolerating and is maintained on 2 to 3 L via nasal cannula during the day. Patient was able to get up and work with physical therapy and feels relatively weak but continues to insist on going home. Will await PT/OT therapy evaluation and discuss further with family and patient regarding discharge planning. Patient being transition from IV Lasix to oral as well as oral prednisone and will continue with breathing treatments. Review of systems: Constitutional: reports of fatigue, no fever, or chills Cardiovascular: No reports of chest pain or palpitations Respiratory: No reports of worsening shortness of breath, reports feeling improved GI: No reports of nausea, no reports of vomiting, no diarrhea, reports feeling slightly constipated : No reports of dysuria or retention Neurovascular: reports of generalized weakness reports was able to get up to the chair today All medications have been reviewed PHYSICAL EXAMINATION: GENERAL: The patient is alert and oriented x3, Well developed, well nourished. Elderly appearing, ill-appearing, obese HEENT: Pupils are round and equally reacting to light. EOMI. no scleral icterus. No conjunctival pallor. Normocephalic, atraumatic. No pharyngeal erythema. No thyromegaly. CARDIOVASCULAR: S1 and S2 muffled PULMONARY: diminished breath sounds bilaterally with some scattered expiratory wheezing and coarse rhonchi noted. ABDOMEN: soft. Nontender on exam. obese. non-distended, normoactive bowel sounds. No palpable organomegaly. MUSCULOSKELETAL: No joint swelling or deformity. EXTREMITIES: No cyanosis, clubbing, or pedal edema. Chronic lower extremity edema NEUROLOGICAL: Gross neurological examination did not reveal any focal deficits. Diffuse weakness SKIN: No rashes. Assessment: Acute on chronic hypoxic hypercarbic respiratory failure, multifactorial including COPD, acute exacerbation with acute on chronic systolic dysfunction CHF exacerbation History of congestive heart failure systolic dysfunction, most recent EF is 45% Acute respiratory acidosis, improving Chronic atrial fibrillation history Hypertension Secondary pulmonary hypertension with prominent right hilum History of NSTEMI Chronic cor pulmonale Acute metabolic encephalopathy secondary to CO2 narcosis, improved Generalized weakness with gait dysfunction Obesity with a BMI of 33.6 GI prophylaxis DVT prophylaxis No code Plan: Recommend to continue with current medications and management and continues in the ICU although is a downgrade once a bed is available. Pulmonary, cardiology, neurology following Mentation is much improved and currently baseline. Patient has used BiPAP overnight and will continue as needed. Discussed with the patient about being compliant with CPAP machine as apparently she has not been wearing that and tolerates maximum 1 hour per night. Patient chronically wears oxygen and will continue on current regimen. Continue with steroids and being transition to oral prednisone along with DuoNeb treatments with pulmonary [employer] reading teacher following Patient being transitioned to oral Lasix and home meds have been reviewed and resumed as appropriate. Will have PT/OT therapy evaluate the patient and discussed with case management/social work along with family regarding discharge planning. Patient is adamant she is going home on discharge Possible discharge planning in the next 24 to 48 hours The impression and plan of care has been dictated by Veronica Iqbal, nurse practitioner as directed. Dr. Morteza MD I have performed a history and examination and MDM of this patient, discussed the same with the dictator, and agree with the dictator's assessment and plan as written ,documented as a scribe. Based on total visit time, I have performed more than 50% of the visit. Any additional findings or plans will be noted. Objective - Vital Signs Vital signs: Vital Signs Temp 97.7 F 03/22/24 08:00 Pulse 80 03/22/24 08:35 Resp 21 03/22/24 08:00 BP 126/66 03/22/24 08:00 Pulse Ox 96 03/22/24 08:00 FiO2 35 03/22/24 03:22 Intake & Output 03/21/24 03/22/24 03/22/24 18:59 06:59 18:59 Intake Total 400 Output Total 875 350 Balance -875 50 Weight 90.3 kg Intake: Oral 400 Output: Urine 875 350 Other: Voiding Method Indwelling Catheter Indwelling Catheter - Labs CBC & Chem 7: 03/23/24 06:05 03/23/24 06:05 Labs: Abnormal Lab Results - Last 24 Hours (Table) 03/22/24 03/22/24 Range/Units 04:00 04:00 RBC 3.70 L (3.80-5.40) m/uL Hgb 11.1 L (11.4-16.0) gm/dL Plt Count 148 L (150-450) k/uL Neutrophils # 9.8 H (1.3-7.7) k/uL Lymphocytes # 0.2 L (1.0-4.8) k/uL Sodium 135 L (137-145) mmol/L Potassium 3.4 L (3.5-5.1) mmol/L Chloride 86 L (98-107) mmol/L Carbon Dioxide 46 H* (22-30) mmol/L BUN 48 H (7-17) mg/dL Glucose 151 H (74-99) mg/dL Microbiology - Last 24 Hours (Table) 03/18/24 14:15 Blood Culture - Preliminary Blood
--- NOTE | 2024-03-23 10:55 | P.PN ---
Subjective Progress Note Date: 03/23/24 Principal diagnosis: Respiratory failure. This is a 78-year-old female, familiar to my service, patient is known to have history of severe COPD, obstructive sleep apnea syndrome, patient has chronic hypoxic respiratory failure maintained on 1.5 L nasal cannula, she has pulmonary hypertension and history of prominent hilar pulmonary vasculature. Patient was brought in by family mostly because she has been noticed to be extremely weak, fatigued, falling asleep most of the time, difficult to keep her awake. No history of injury or head trauma, no headache, no dizziness, no blurred vision workup in the ER included a chest x-ray which was highly suspicious for pulmonary edema. WBC count is 11.7 hemoglobin 12.7, basic metabolic profile is normal except for elevated bicarb of 46 potassium is high at 5.6. Screening for influenza A influenza B, RSV and COVID-19 all negative. Drug screen positive only for benzodiazepines ABG is very abnormal showing a pO2 of 57 pCO2 119 pH of 7.22 and this was on 2 L nasal cannula I was notified about this patient's ABG and I ran down to the ER, evaluated the patient, I recommended placing the patient on BiPAP 18/8/40%, discussed CODE STATUS with the family, and the patient is presently no code. This was clearly expressed previously according to the daughter and by the patient and I believe I have discussed this CODE STATUS in the past with the patient and she is DNR. At any rate considering her profound hypercapnia and respiratory acidosis, I recommended admission of the patient to the ICU. In the meantime I adjusted her BiPAP, patient will be receiving Lasix for her pulmonary edema, and she will be placed on bronchodilators for her underlying COPD Progress note dated March 19, 2024. 78-year-old female seen in consultation yesterday, and admitted with a diagnosis of COPD exacerbation, sleep apnea syndrome, chronic respiratory failure, among other things. The patient is seen today in room 263. She was admitted on March 18. She is on BiPAP, with settings of 18/8, and 35%. She is getting saline at about 5 cc an hour. Her procalcitonin level is 0.04. Antibiotics will be discontinued. She was taken off BiPAP for short period of time, to eat, but she did poorly, was placed back on BiPAP. Current labs include a white count 13.8, hemoglobin 12.2, hematocrit 39.2, and a normal platelet count. Sodium 140, potassium 4.1, chlorides 83, CO2 52, BUN 36, creatinine 0.94. Glucose is 102. Albumin 3.2. N-terminal proBNP is 2380. Chest x-ray shows changes of COPD, cardiomegaly, and some interstitial changes, which may relate to fluid overload and or atelectasis. Progress note dated March 20, 2024. 78-year-old female seen today in room 263. Currently she is on 2 L of oxygen. She did use the BiPAP overnight with settings of 18/8, and 35%. She not receiving any IV fluids. Currently, she is doing much better clinically. She feels much less short of breath. Current labs include white count 11.5, hemoglobin 11.3, hematocrit 37.2, and a platelet count of 143,000. Sodium 138, potassium 3.1, chlorides 82, CO2 52, BUN 51, creatinine 1.02. Glucose is 160. Blood cultures are currently pending are negative. Chest x-ray shows changes of cardiomegaly, COPD, and pulmonary arterial hypertension. Progress note dated March 21, 2024. 78-year-old female seen today in room 263. Currently, she is on 2 L of oxygen. She did use the BiPAP last night with settings of 18/8, and 35%. She is not receiving any IV fluids. The patient is stable from my perspective, could be transferred out of the intensive care unit, to the general medical floor. She is improved dramatically over the last 48 hours. White count is 13.5, hemoglobin 11.3, hematocrit 37.1, and platelet count 191,000. Sodium 136, p otassium 4.1, chloride 86, CO2 48, BUN 48, and creatinine 1.24. Glucose is 138. Calcium 9.2, magnesium 2.3. Chest x-ray shows evidence of cardiomegaly, changes of COPD, pulmonary arterial hypertension. There is some basilar atelectasis as well. Progress note dated March 22, 2024. 78-year-old female seen today in room 263. She was admitted with a diagnosis of acute hypoxemic respiratory failure secondary to severe COPD. She is using BiPAP at nighttime. BiPAP settings were 18/8, and 35%. Currently, she is on 2 L of oxygen by nasal cannula. She is not receiving any IV fluids. Today, the budesonide, and formoterol, will be converted to Symbicort 160/4.5, 2 puffs twice a day, and the Solu-Medrol will be changed to prednisone, 40 mg a day. The patient is able to be transferred out of the intensive care unit. Current labs include a white count 10.3, hemoglobin 11.1, hematocrit 35.8, and a platelet count of 148,000. Sodium 135, potassium 3.4, chlorides 86, CO2 46, anion gap normal, BUN 48, creatinine 1.01. Glucose is 151. Calcium is 9. Blood cultures are negative. Chest x-ray again shows evidence of cardiomegaly, COPD changes, and pulmonary arterial hypertension. Progress note dated March 23, 2024. 78-year-old female seen again in room 263. She is currently on 2 L of oxygen. She did use BiPAP last night, with settings of 18/8, and 35%. The patient is doing much better. Her breathing is much improved. Current laboratory data includes a white count 9.9, hemoglobin 11.4, hematocrit 36.5, and a platelet count of 132,000. Sodium 135, potassium 3.8, chlorides 89, CO2 43, BUN 49, creatinine 1.15. Glucose is 101. Calcium is 8.9. Chest x-ray from yesterday shows evidence of COPD, cardiomegaly, and pulmonary hypertension. Objective - Vital Signs Vital signs: Vital Signs Temp 97.9 F 03/23/24 08:00 Pulse 73 03/23/24 08:15 Resp 16 03/22/24 11:00 BP 135/74 03/23/24 08:00 Pulse Ox 96 03/23/24 08:00 FiO2 35 03/23/24 03:13 Intake & Output 03/22/24 03/23/24 03/23/24 18:59 06:59 18:59 Output Total 575 300 Balance -575 -300 Weight 90.3 kg 89.9 kg Output: Urine 575 300 Other: Voiding Method Indwelling Catheter Toilet Toilet External Catheter External Catheter # Voids 2 # Bowel Movements 1 - Exam No acute distress, oriented 3. Currently on nasal O2 at 2 L. HEENT examination is grossly unremarkable. Neck supple. Full range of motion. No adenopathy thyromegaly or neck vein distention. Cardiovascular examination reveals regular rhythm rate. S1-S2 normal. No S3 or S4. No discernible murmur noted. Heart sounds are distant. Heart rate 73 bpm. Lungs reveal coarse bilateral expiratory rhonchi and wheezes. Breath sounds are equal. No crackles. Saturations are 96 % on 2 L. Abdomen soft, without bowel sounds. Abdomen is obese. No masses. Extremities are intact. No cyanosis clubbing or significant edema. Skin is without rash or lesion. Neurologic examination is brief but nonfocal. - Labs CBC & Chem 7: 03/23/24 06:05 03/23/24 06:05 Labs: Abnormal Lab Results - Last 24 Hours (Table) 03/23/24 03/23/24 Range/Units 06:05 06:05 RBC 3.76 L (3.80-5.40) m/uL Plt Count 132 L (150-450) k/uL Neutrophils # 8.8 H (1.3-7.7) k/uL Lymphocytes # 0.6 L (1.0-4.8) k/uL Sodium 135 L (137-145) mmol/L Chloride 89 L (98-107) mmol/L Carbon Dioxide 43 H* (22-30) mmol/L BUN 49 H (7-17) mg/dL Creatinine 1.15 H (0.52-1.04) mg/dL Glucose 101 H (74-99) mg/dL Assessment and Plan Assessment: Acute on chronic hypoxemic and hypercapnic respiratory failure in a patient with severe COPD, and possible underlying CHF. Chronic atrial fibrillation. Chronic hypoxemic and hypercapnic respiratory failure. Benign essential hypertension. Truncal obesity. Chronic cor pulmonale. Hyperlipidemia. Secondary pulmonary hypertension. Metabolic encephalopathy secondary to CO2 narcosis. Plan: Plan dated March 19, 2024. The patient was admitted on March 18. She was admitted with a diagnosis of acute hypoxemic and hypercapnic respiratory failure, secondary to severe COPD. The patient is currently BiPAP dependent. She is on settings of 18/8 and 35%. She is getting saline at 5 cc an hour. Procalcitonin level was 0.04. Antibiotics were discontinued. Chest x-ray shows some improvement. We will continue to follow make recommendations along the way. Labs, x-rays, and medications are all reviewed. The patient continues on GI DVT prophylaxis. The patient continues on Eliquis. Prognosis is certainly guarded. In the end, the patient may require intubation, but she is a no code patient. The patient was taken off of BiPAP for short period of time, but he needed to be restarted right away, as the patient desaturated. Plan dated March 20, 2024. The patient is doing much better. The patient is currently on 2 L of oxygen. She is using the BiPAP device at nighttime exclusively. Labs, x-rays, medications are reviewed. She is on appropriate medications including bronchodilators, and corticosteroids. We will continue to follow the patient, and make recommendations along the way. She continues on Pulmicort, formoterol, albuterol sulfate, ipratropium bromide, and Solu-Medrol. Labs, x-rays, and medications are all reviewed. Prognosis is guarded. Plan dated March 21, 2024. The patient is seen today in room 263. She is on 2 L of oxygen. She did use BiPAP last night. The patient has improved significantly over the last 48 hours . Her breathing is much improved. The patient continues on Pulmicort, formoterol, DuoNebs, and Solu-Medrol. The patient is currently not on any antibiotics. We will continue to follow the patient, make recommendations along the way. Prognosis is thought to be generally good. Labs, x-rays, and all medications are reviewed. Plan dated March 22, 2024. The patient appears to be doing relatively well. The patient continues on oxygen at 2 L by nasal cannula during the daytime, and uses BiPAP, with settings of 18/8, and 35% at nighttime. Because she is doing so well, the Solu-Medrol will be converted to prednisone 40 mg a day, and breathing treatments with budesonide, and formoterol, will be changed to Symbicort 160/4.5, 2 puffs twice a day. Labs, x-rays, and medications are reviewed. The patient needs to follow-up with my partner after discharge. The patient is stable enough to be d ischarged out of the intensive care unit. Plan dated March 23, 2024. The patient is seen today in room 263. The patient continues on 2 L of oxygen. She is not receiving any IV fluids. She did use the BiPAP last night, with similar settings, of 18/8, 35%. Labs, x-rays, medications are reviewed. The patient continues on appropriate medications. This includes Symbicort 160/4.5, 2 puffs twice a day, prednisone 40 mg a day, and albuterol sulfate and ipratropium bromide, 4 times daily and as needed. Time with Patient: Less than 30
[2024-03-23 12:25] VITALS: BMI 34.0
[2024-03-23 14:22] VITALS: BP 127/62
[2024-03-23 16:08] VITALS: PULSE 68
== END 2024-03-23 17:08 | disposition home health service (06) | DRG 291 ==
LOC: EC 09:40 → 3SCARD 12:44 → 2SICU 15:50 → OBSVTOIN 03-19 10:27
PROVIDERS: ADMIT Hospitalist; ATTEND Hospitalist
PROC: 5A09457 Assistance with Respiratory Ventilation, 24-96 Consecutive Hours, Continuous Positive Airway Pressure (ICD-10-PCS; principal; 2024-03-18)
DX: I11.0 Hypertensive heart disease with heart failure (principal); G93.41 Metabolic encephalopathy; I50.43 Acute on chronic combined systolic (congestive) and diastolic (congestive) heart failure; J96.21 Acute and chronic respiratory failure with hypoxia; J96.22 Acute and chronic respiratory failure with hypercapnia; I48.19 Other persistent atrial fibrillation; J44.1 Chronic obstructive pulmonary disease with (acute) exacerbation; J98.11 Atelectasis; E87.29 Other acidosis; G47.33 Obstructive sleep apnea (adult) (pediatric); H57.02 Anisocoria; I25.2 Old myocardial infarction; I27.81 Cor pulmonale (chronic); I27.21 Secondary pulmonary arterial hypertension; I27.29 Other secondary pulmonary hypertension; Z99.81 Dependence on supplemental oxygen; Z68.33 Body mass index [BMI] 33.0-33.9, adult; E66.8 Other obesity; Z79.01 Long term (current) use of anticoagulants; Z66 Do not resuscitate; Z79.51 Long term (current) use of inhaled steroids; Z79.899 Other long term (current) drug therapy; Z91.199 Patient's noncompliance with other medical treatment and regimen due to unspecified reason; Z20.822 Contact with and (suspected) exposure to COVID-19
CPT/HCPCS: 36415; 36600; 51701; 51702; 70450; 71045; 71046; 80048; 80053; 80306; 80320; 81001; 82805; 83605; 83735; 83880; 84132; 84145; 84484; 85025; 85610; 85730; 87040; 87636; 93005; 93308; 94640; 94660; 96361; 96374; 96375; 96376; 99285

== ENCOUNTER 2024-04-18 19:33 | Inpatient (IN) | payer MEDICARE, OTHER ==
--- NOTE | 2024-04-18 20:01 | ED ---
SOB HPI - General Chief Complaint: Shortness of Breath Stated Complaint: KULDIP Time Seen by Provider: 04/18/24 19:39 Source: EMS, RN notes reviewed, old records reviewed Mode of arrival: EMS Limitations: no limitations - History of Present Illness Initial Comments: This is a 78-year-old female to the ER today. This patient presents today for evaluation in regards to severe shortness of breath with hypoxia and respiratory failure altered mental status on arrival to the emergency department. Patient was placed on BiPAP secondary to clinical condition MD Complaint: shortness of breath, cough, anxiety -: days(s) Severity: severe Severity scale (1-10): 10 Consistency: constant Improves With: nothing Worsens With: nothing Known History Of: COPD, asthma Context: recent URI - Related Data Home Medications Medication Instructions Recorded Confirmed Apixaban [Eliquis] 2.5 mg PO DAILY 03/18/24 04/18/24 Atorvastatin [Lipitor] 40 mg PO DAILY 03/18/24 04/18/24 ALPRAZolam [Xanax] 0.125 - 0.25 mg PO DAILY PRN 04/18/24 04/18/24 Furosemide [Lasix] 20 mg PO DAILY 04/18/24 04/18/24 Ipratropium-Albuterol Nebulize 3 ml INHALATION RT-QID 04/18/24 04/18/24 [Duoneb 0.5 mg-3 mg/3 ml Soln] Ipratropium-Albuterol Nebulize 3 ml INHALATION RT-TID PRN 04/18/24 04/18/24 [Duoneb 0.5 mg-3 mg/3 ml Soln] Losartan [Cozaar] 25 mg PO DAILY 04/18/24 04/18/24 Potassium Chloride 10 meq PO BID 04/18/24 04/18/24 Previous Rx's Medication Instructions Recorded Budesonide-Formot 160-4.5 Mcg 2 puff INHALATION RT-BID 30 Days 03/23/24 [Symbicort 160-4.5 Mcg Inhaler] #1 each Nystatin 100,000 Unit/gm Powd 1 applic TOPICAL BID 7 Days #1 each 04/24/24 [Mycostatin Powder] predniSONE 10 mg PO DIRECTED 9 Days #22 tab 04/24/24 Allergies Allergy/AdvReac Type Severity Reaction Status Date / Time No Known Allergies Allergy Verified 04/18/24 20:58 Review of Systems ROS Statement: Those systems with pertinent positive or pertinent negative responses have been documented in the HPI. ROS Other: All systems not noted in ROS Statement are negative. Past Medical History Past Medical History: Atrial Fibrillation, COPD, Hypertension Additional Past Medical History / Comment(s): COPD, hypertension, secondary pulmonary hypertension, chronic hypoxic respiratory failure, chronic atrial f ibrillation, hyperlipidemia, obstructive sleep apnea, NSTEMI (01/07/24) History of Any Multi-Drug Resistant Organisms: None Reported Additional Past Surgical History / Comment(s): Right lung lung lobectomy, hernia repair and the patient has a large anterior abdominal wall incision, hysterectomy, knee surgery, cholecystectomy Past Anesthesia/Blood Transfusion Reactions: No Reported Reaction Past Psychological History: No Psychological Hx Reported Smoking Status: Never smoker Past Alcohol Use History: Rare Past Drug Use History: None Reported - Past Family History Mother Family Medical History: Cancer Father Family Medical History: Coronary Artery Disease (CAD) General Exam Limitations: altered mental status, physical limitation General appearance: alert, in no apparent distress, anxious, in distress Head exam: Present: atraumatic, normocephalic, normal inspection Eye exam: Present: normal appearance, PERRL, EOMI. Absent: scleral icterus, conjunctival injection, periorbital swelling ENT exam: Present: normal exam, mucous membranes moist Neck exam: Present: normal inspection. Absent: tenderness, meningismus, lymphadenopathy Respiratory exam: Present: normal lung sounds bilaterally. Absent: respiratory distress, wheezes, rales, rhonchi, stridor Cardiovascular Exam: Present: regular rate, normal rhythm, normal heart sounds. Absent: systolic murmur, diastolic murmur, rubs, gallop, clicks GI/Abdominal exam: Present: soft, normal bowel sounds. Absent: distended, tenderness, guarding, rebound, rigid Extremities exam: Present: normal inspection, full ROM, normal capillary refill. Absent: tenderness, pedal edema, joint swelling, calf tenderness Back exam: Present: normal inspection Neurological exam: Present: alert, oriented X3, CN II-XII intact Psychiatric exam: Present: normal affect, normal mood Skin exam: Present: warm, dry, intact, normal color. Absent: rash Course Vital Signs 04/18/24 04/18/24 04/18/24 19:35 20:03 20:07 Temperature 98.5 F Pulse Rate 90 101 H Respiratory 28 H Rate Blood Pressure 145/79 O2 Sat by Pulse 92 L Oximetry Fraction of 35 Inspired Oxygen (FIO2) 04/18/24 04/18/24 04/18/24 20:13 20:30 20:41 Temperature Pulse Rate 94 108 H Respiratory 20 Rate Blood Pressure 153/64 O2 Sat by Pulse 94 L Oximetry Fraction of 35 Inspired Oxygen (FIO2) 04/18/24 04/18/24 04/18/24 21:22 23:00 23:37 Temperature Pulse Rate 94 Respiratory 21 Rate Blood Pressure 117/82 O2 Sat by Pulse Oximetry Fraction of 60 60 Inspired Oxygen (FIO2) 04/18/24 04/19/24 04/19/24 23:41 00:00 00:01 Temperature Pulse Rate 111 H 90 92 Respiratory 22 Rate Blood Pressure 144/65 O2 Sat by Pulse Oximetry Fraction of Inspired Oxygen (FIO2) 04/19/24 04/19/24 04/19/24 00:58 01:00 02:00 Temperature Pulse Rate 94 82 Respiratory 23 22 Rate Blood Pressure 119/73 109/59 O2 Sat by Pulse 93 L 89 L Oximetry Fraction of 35 Inspired Oxygen (FIO2) 04/19/24 04/19/24 04/19/24 03:00 04:00 04:33 Temperature Pulse Rate 93 78 Respiratory 21 22 Rate Blood Pressure 113/70 133/69 O2 Sat by Pulse 88 L 94 L Oximetry Fraction of 50 Inspired Oxygen (FIO2) - Reevaluation(s) Reevaluation #1: 04/18/24 22:32 Records reviewed Reevaluation #2: 04/18/24 22:32 Patient symptoms unchanged but may be mildly improving on BiPAP 04/18/24 22:32 , Mildly responsive to questioning and pain Reevaluation #3: 04/18/24 22:32 Patient informed of results and questions answered Reevaluation #4: 04/18/24 22:32 Was pt. sent in by a medical professional or institution (, PA, [facility], urgent care, hospital, or fci...) When possible be specific @ -no Did you speak to anyone other than the patient for history (EMS, parent, family, police, friend...)? What history was obtained from this source @ -no Did you review nursing and triage notes (agree or disagree)? Why? @ -agree Are old charts reviewed (outside hosp., previous admission, EMS record, old EKG, old radiological studies, urgent care reports/EKG's, fci records)? Report findings @ -yes Differential Diagnosis (chest pain, altered mental status, abdominal pain women, abdominal pain men, vaginal bleeding, weakness, fever, dyspnea, syncope, headache, dizziness, GI bleed, back pain, seizure, CVA, palpatations, mental health, musculoskeletal)? @ -prior EKG interpreted by me (3pts min.). @ -yes X-rays interpreted by me (1pt min.). @ -yes negative for acute disease CT interpreted by me (1pt min.). @ -no U/S interpreted by me (1pt. min.). @ -no What testing was considered but not performed or refused? (CT, X-rays, U/S, labs)? Why? @ -none What meds were considered but not given or refused? Why? @ -none Did you discuss the management of the patient with other professionals (professionals i.e. , PA, [facility], lab, RT, psych nurse, transition social worker, glue plant operator, teacher, custody officer, piano case and bench assembler)? Give summary @ -no Was smoking cessation discussed for >3mins.? @ -no Was critical care preformed (if so, how long)? @ -yes31 Were there social determinants of health that impacted care today? How? (Homelessness, low income, unemployed, alcoholism, drug addiction, transportation, low edu. Level, literacy, decrease access to med. care, residential, rehab)? @ -none Was there de-escalation of care discussed even if they declined (Discuss DNR or withdrawal of care, Hospice)? DNR status @ -no What co-morbidities impacted this encounter? (DM, HTN, Smoking, COPD, CAD, Cancer, CVA, ARF, Chemo, Hep., AIDS, mental health diagnosis, sleep apnea, morbid obesity)? @ -none Was patient admitted / discharged? Hospital course, mention meds given and route, prescriptions, significant lab abnormalities, going to OR and other pertinent info. @ - 78 Female at this time will be admitted for severe respiratory failure, respiratory failure with hypoxia and hypercarbia. Patient be admitted on BiPAP Admitted Undiagnosed new problem with uncertain prognosis? @ -no Drug Therapy requiring intensive monitoring for toxicity (Heparin, Nitro, Insulin, Cardizem)? @ -no Were any procedures done? @ -no Diagnosis/symptom? @ -Respiratory failure on BiPAP with COPD Acute, or Chronic, or Acute on Chronic? @ -Acute Uncomplicated (without systemic symptoms) or Complicated (systemic symptoms)? @ -Complicated Side effects of treatment? @ -no Exacerbation, Progression, or Severe Exacerbation? @ -exacerbation Poses a threat to life or bodily function? How? (Chest pain, [place], [place], pneumonia, PE, COPD, DKA, ARF, appy, cholecystitis, CVA, Diverticulitis, Homicidal, Gena cidal, threat to staff... and all critical care pts) @ -yes respiratory failure Reevaluation #5: Differential Dyspnea: Coronary syndrome, arrhythmia, tamponade, asthma, COPD, pulmonary embolism, pneumonia, pneumothorax, pulmonary effusion, anaphylaxis, diabetic ketoacidosis, flailed chest, pulmonary contusion, diaphragmatic rupture, anemia, neuromuscular, this is not meant to be an all-inclusive list. Differential Altered Mental Status: Hypoglycemia, DKA, hypercapnia, ETOH, overdose, CO poisoning, trauma, myxedema coma, HTN encephalopathy, infection, encephalitis, psychosis, intercranial hemorrhage, hepatic encephalopathy, meningitis, CVA, this is not meant to be an all-inclusive list - Consultations Consultation #1: Spoke with [facility] who agrees to admit this patient Medical Decision Making - Medical Decision Making 78 Female at this time will be admitted for severe respiratory failure, respiratory failure with hypoxia and hypercarbia. Patient be admitted on BiPAP - Lab Data Result diagrams: 04/23/24 06:50 04/23/24 06:50 Lab Results 04/18/24 04/18/24 04/18/24 Range/Units 19:40 19:40 19:40 WBC 9.6 (3.8-10.6) k/uL RBC 3.97 (3.80-5.40) m/uL Hgb 12.5 (11.4-16.0) gm/dL Hct 38.6 (34.0-46.0) % MCV 97.3 (80.0-100.0) fL MCH 31.5 (25.0-35.0) pg MCHC 32.3 (31.0-37.0) g/dL RDW 14.9 (11.5-15.5) % Plt Count 216 (150-450) k/uL MPV 7.5 Neutrophils % 79 % Lymphocytes % 12 % Monocytes % 6 % Eosinophils % 1 % Basophils % 1 % Neutrophils # 7.5 (1.3-7.7) k/uL Lymphocytes # 1.1 (1.0-4.8) k/uL Monocytes # 0.6 (0-1.0) k/uL Eosinophils # 0.1 (0-0.7) k/uL Basophils # 0.1 (0-0.2) k/uL Hypochromasia Slight PT 10.7 (10.0-12.5) sec INR 1.0 (<1.2) APTT 26.0 (22.0-30.0) sec Sodium 138 (137-145) mmol/L Potassium 4.2 (3.5-5.1) mmol/L Chloride 98 (98-107) mmol/L Carbon Dioxide 38 H (22-30) mmol/L Anion Gap 2 mmol/L BUN 23 H (7-17) mg/dL Creatinine 0.91 (0.52-1.04) mg/dL Est GFR (CKD-EPI)AfAm 69 (>60 ml/min/1.73 sqM) Est GFR (CKD-EPI)NonAf 60 (>60 ml/min/1.73 sqM) Glucose 133 H (74-99) mg/dL Calcium 9.0 (8.4-10.2) mg/dL Magnesium 1.5 L (1.6-2.3) mg/dL Total Bilirubin 1.7 H (0.2-1.3) mg/dL AST 32 (14-36) U/L ALT 13 (4-34) U/L Alkaline Phosphatase 90 (38-126) U/L Troponin I (0.000-0.034) ng/mL NT-Pro-B Natriuret Pep 1310 pg/mL Total Protein 6.0 L (6.3-8.2) g/dL Albumin 3.7 (3.5-5.0) g/dL 04/18/24 Range/Units 19:40 WBC (3.8-10.6) k/uL RBC (3.80-5.40) m/uL Hgb (11.4-16.0) gm/dL Hct (34.0-46.0) % MCV (80.0-100.0) fL MCH (25.0-35.0) pg MCHC (31.0-37.0) g/dL RDW (11.5-15.5) % Plt Count (150-450) k/uL MPV Neutrophils % % Lymphocytes % % Monocytes % % Eosinophils % % Basophils % % Neutrophils # (1.3-7.7) k/uL Lymphocytes # (1.0-4.8) k/uL Monocytes # (0-1.0) k/uL Eosinophils # (0-0.7) k/uL Basophils # (0-0.2) k/uL Hypochromasia PT (10.0-12.5) sec INR (<1.2) APTT (22.0-30.0) sec Sodium (137-145) mmol/L Potassium (3.5-5.1) mmol/L Chloride (98-107) mmol/L Carbon Dioxide (22-30) mmol/L Anion Gap mmol/L BUN (7-17) mg/dL Creatinine (0.52-1.04) mg/dL Est GFR (CKD-EPI)AfAm (>60 ml/min/1.73 sqM) Est GFR (CKD-EPI)NonAf (>60 ml/min/1.73 sqM) Glucose (74-99) mg/dL Calcium (8.4-10.2) mg/dL Magnesium (1.6-2.3) mg/dL Total Bilirubin (0.2-1.3) mg/dL AST (14-36) U/L ALT (4-34) U/L Alkaline Phosphatase (38-126) U/L Troponin I 0.024 (0.000-0.034) ng/mL NT-Pro-B Natriuret Pep pg/mL Total Protein (6.3-8.2) g/dL Albumin (3.5-5.0) g/dL - EKG Data -: EKG Interpreted by Me (EKG Is A-fib with RVR 109 QRS 70 QTc 340) - Radiology Data Radiology results: report reviewed (X-rays negative for acute disease), image reviewed Critical Care Time Critical Care Time: Yes Total Critical Care Time: 31 Disposition Clinical Impression: COPD exacerbation, Hypercapnia, Altered mental status, Renal insufficiency, Acute respiratory failure, Chronic atrial fibrillation, BiPAP (biphasic positive airway pressure) dependence Disposition: ADMITTED IP TO THIS HOSP Condition: Serious Is patient prescribed a controlled substance at d/c from ED?: No Time of Disposition: 22:30
[2024-04-18] MEDS: IPRATROPIUM 0.5 MG/2.5 ML NEBU INHALATION STA (20:03)
[2024-04-18] MEDS: ALBUTEROL NEBULIZED 2.5 MG/3 ML INHALATION STA (20:03)
[2024-04-18] MEDS: SODIUM CHLORIDE 0.9% 1,000 ML IV STA (20:05)
[2024-04-18 20:08] LABS: Basophils # (A) 0.1 k/uL (0-0.2); Basophils % (A) 1 %; Eosinophils # (A) 0.1 k/uL (0-0.7); Eosinophils % (A) 1 %; HCT 38.6 % (34.0-46.0); HGB 12.5 gm/dL (11.4-16.0); Hypochromasia Slight; Lymphocytes # (A) 1.1 k/uL (1.0-4.8); Lymphocytes % (A) 12 %; MCH 31.5 pg (25.0-35.0); MCHC 32.3 g/dL (31.0-37.0); MCV 97.3 fL (80.0-100.0); Mean Platelet Volume 7.5; Monocytes # (A) 0.6 k/uL (0-1.0); Monocytes % (A) 6 %; Neutrophils # (A) 7.5 k/uL (1.3-7.7); Neutrophils % (A) 79 %; Platelet Count 216 k/uL (150-450); RBC 3.97 m/uL (3.80-5.40); RDW 14.9 % (11.5-15.5); WBC 9.6 k/uL (3.8-10.6)
[2024-04-18] MEDS: methylPREDNISolone SOD SUCCI 125 MG/2 ML VIAL IV STA (20:09)
[2024-04-18 20:13] LABS: ALT 13 U/L (4-34); African American GFR (CKD) 69 (>60 ml/min/1.73 sqM); Albumin 3.7 g/dL (3.5-5.0); Anion Gap 2 mmol/L; Blood Urea Nitrogen 23 mg/dL (7-17); Carbon Dioxide 38 mmol/L (22-30); Chloride 98 mmol/L (98-107); Glucose 133 mg/dL (74-99); Non-African American GFR(CKD) 60 (>60 ml/min/1.73 sqM); Sodium 138 mmol/L (137-145); Total Bilirubin 1.7 mg/dL (0.2-1.3)
[2024-04-18 20:14] LABS: AST 32 U/L (14-36); Alkaline Phosphatase 90 U/L (38-126); Magnesium 1.5 mg/dL (1.6-2.3); Potassium 4.2 mmol/L (3.5-5.1)
[2024-04-18 20:22] LABS: NT-Pro-B-Type Natriuretic Pept 1310 pg/mL
--- NOTE | 2024-04-18 20:23 | XR ---
EXAMINATION TYPE: XR chest 1V portable DATE OF EXAM: 04/18/2024 8:19 PM CLINICAL INDICATION:Female, 78 years old with history of sob; [facility] COMPARISON: Chest radiographs from 04/16/2024 TECHNIQUE: XR chest 1V portable Frontal view of the chest. FINDINGS: Lungs/Pleura: Subsegmental atelectasis present in the lung bases. Pulmonary vascularity: Unremarkable. Heart/mediastinum: Cardiomediastinal silhouette is unremarkable. Redemonstrated prominent right hilu m, which corresponds to dilated pulmonary artery as seen on prior exams. Musculoskeletal: No acute osseous pathology. IMPRESSION: 1. No acute cardiopulmonary process. 2. Redemonstrated dilated right pulmonary artery which can be associated with pulmonary hypertension.
[2024-04-18 20:28] LABS: Prothrombin Time 10.7 sec (10.0-12.5)
[2024-04-18] MEDS: NALOXONE 0.4 MG/ML 1 ML VIAL IV STA (22:09)
[2024-04-18] MEDS ORDERED: ALBUTEROL NEBULIZED 2.5 MG/3 ML INHALATION PRN (22:27)
[2024-04-18] MEDS ORDERED: NALOXONE 0.4 MG/ML 1 ML VIAL IVP PRN (22:27)
[2024-04-18] MEDS ORDERED: NALOXONE 0.4 MG/ML 1 ML VIAL IV PRN (22:29)
[2024-04-18] MEDS ORDERED: HYDROmorphone 1 MG/ML 1 ML SYRINGE IVP PRN (22:29)
[2024-04-18] MEDS ORDERED: ONDANSETRON 4 MG/2 ML VIAL IVP PRN (22:29)
[2024-04-18] MEDS: SODIUM CHLORIDE 0.9% 1,000 ML IV SCH (23:00)
[2024-04-18] MEDS: MAGNESIUM SULFATE-D5W PMX 1 GM in DEXTROSE/WATER 1 100ML.BAG IVPB SCH (23:04)
[2024-04-18] MEDS: IPRATROPIUM-ALBUTEROL 3 ML NEB INHALATION STA (23:40)
[2024-04-19 00:49] LABS: ABG HCO3 37 mmol/L (21-25); ABG PH 7.28 (7.35-7.45); ABG PO2 60 mmHg (83-108); ABG TCO2 40 mmol/L (19-24); Allen Test Performed? Yes
[2024-04-19 00:56] LABS: ABG Oxygen Saturation 90.9 % (94-97); ABG PCO2 79 mmHg (35-45)
[2024-04-19] MEDS: SODIUM CHLORIDE 0.9% 1,000 ML IV SCH (04:23)
--- NOTE | 2024-04-19 04:24 | P.CNPUL ---
History of Present Illness Consult date: 04/19/24 Requesting physician: Fredy Eaton Reason for consult: COPD Chief complaint: Altered mental status and shortness of breath. History of present illness: Patient is a 78-year-old white female with past medical history significant for severe COPD, chronic hypoxemic and hypercapnic respiratory failure on 1.5 L nasal cannula while at home, and obstructive sleep apnea. She follows in the lmonary office with Dr. Welch. She has had a recent hospitalization last month with similar presentation. She presented the emergency room late last night, she was noted to be short of breath and difficult to arouse. On my evaluation the patient is still in the emergency department, trauma bay 2. Initially, difficult to arouse with painful stimuli. She was on BiPAP with settings 12/6 and FiO2 of 60%. She is only achieving tidal volumes of around 200 and her respiratory rate is in the mid 20s. Her IPAP was increased to 18 and FiO2 was dropped to 35%. After approximately 30 minutes the patient has started to more more arousable to verbal stimuli and will open her eyes. She remains di soriented. Follow-up ABG pH of 7.28, pCO2 of 79, pO2 of 60. Chest x-ray does not reveal any acute cardiopulmonary process, no acute infiltrates or evidence of pneumonia. There is a prominent right pulmonary artery. CBC unremarkable. No leukocytosis. No fevers. BMP also unremarkable except for hypercarbia. Troponin 0.024 and 0.033 respectively. NT proBNP 1310. EKG shows atrial fibrillation with a rate of 109 bpm. No acute ischemic changes noted. Patient is known to have chronic atrial fibrillation, anticoagulated on Eliquis, also hyperlipidemia, hypertension. Note that the patient was previously listed as a DO NOT RESUSCITATE on previous hospital admissions. Currently listed as a full code, this will to be clarified with family. Review of Systems ROS unobtainable: due to mental status Past Medical History Past Medical History: Atrial Fibrillation, COPD, Hypertension Additional Past Medical History / Comment(s): COPD, hypertension, secondary pulmonary hypertension, chronic hypoxic respiratory failure, chronic atrial fibrillation, hyperlipidemia, obstructive sleep apnea, NSTEMI (01/07/24) History of Any Multi-Drug Resistant Organisms: None Reported Additional Past Surgical History / Comment(s): Right lung lung lobectomy, hernia repair and the patient has a large anterior abdominal wall incision, hysterectomy, knee surgery, cholecystectomy Past Anesthesia/Blood Transfusion Reactions: No Reported Reaction Past Psychological History: No Psychological Hx Reported Smoking Status: Never smoker Past Alcohol Use History: Rare Past Drug Use History: None Reported - Past Family History Mother Family Medical History: Cancer Father Family Medical History: Coronary Artery Disease (CAD) Medications and Allergies Home Medications Medication Instructions Recorded Confirmed Type Apixaban [Eliquis] 2.5 mg PO DAILY 03/18/24 04/18/24 History Atorvastatin [Lipitor] 40 mg PO DAILY 03/18/24 04/18/24 History Budesonide-Formot 160-4.5 Mcg 2 puff INHALATION RT-BID 30 Days 03/23/24 04/18/24 Rx [Symbicort 160-4.5 Mcg Inhaler] #1 each ALPRAZolam [Xanax] 0.125 - 0.25 mg PO DAILY PRN 04/18/24 04/18/24 History Furosemide [Lasix] 20 mg PO DAILY 04/18/24 04/18/24 History Ipratropium-Albuterol Nebulize 3 ml INHALATION RT-QID 04/18/24 04/18/24 History [Duoneb 0.5 mg-3 mg/3 ml Soln] Ipratropium-Albuterol Nebulize 3 ml INHALATION RT-TID PRN 04/18/24 04/18/24 History [Duoneb 0.5 mg-3 mg/3 ml Soln] Losartan [Cozaar] 25 mg PO DAILY 04/18/24 04/18/24 History Potassium Chloride 10 meq PO BID 04/18/24 04/18/24 History Allergies Allergy/AdvReac Type Severity Reaction Status Date / Time No Known Allergies Allergy Verified 04/18/24 20:58 Physical Exam Vitals: Vital Signs Temp Pulse Resp BP Pulse Ox FiO2 04/19/24 01:00 94 23 119/73 93 L 04/19/24 00:58 35 04/19/24 00:01 92 04/19/24 00:00 90 22 144/65 04/18/24 23:41 111 H 04/18/24 23:37 60 04/18/24 23:00 94 21 117/82 04/18/24 21:22 60 04/18/24 20:41 108 H 04/18/24 20:30 94 20 153/64 94 L 04/18/24 20:13 35 04/18/24 20:07 101 H 04/18/24 20:03 35 04/18/24 19:35 98.5 F 90 28 H 145/79 92 L Intake and Output 04/18/24 04/18/24 04/19/24 14:59 22:59 06:59 Other: Weight 113.398 kg GENERAL EXAM: Lethargic, morbidly obese 78-year-old white female, currently on BiPAP HEAD: Normocephalic and atraumatic EYES: Normal reaction of pupils, equal size. NOSE: Clear with pink turbinates. THROAT: No erythema or exudates. NECK: No masses, no JVD. CHEST: No chest wall deformity. LUNGS: Equal air entry with bilateral rhonchi and expiratory wheezing. On BiPAP with current settings 18/6 and FiO2 of 35%. Tidal volumes have increased to 375 and her respiratory to sustaining in the mid 20s. Becoming more arousable even with verbal questioning. No accessory muscle use. She occasionally coughs, which is congested and nonproductive. CVS: S1 and S2 normal with no audible murmur, irregular rhythm. No extra heart sounds ABDOMEN: No hepatosplenomegaly, active bowel sounds, no guarding or rigidity. SPINE: No scoliosis or deformity SKIN: No rashes CENTRAL NERVOUS SYSTEM: Remains lethargic, but more arousable to verbal stimuli, no focal deficits noted. EXTREMITIES: There is no peripheral edema, clubbing, or cyanosis. Peripheral pulses are intact. Results - Laboratory Findings CBC and BMP: 04/19/24 07:27 04/19/24 07:27 ABG ABG pH 7.28 (7.35-7.45) L 04/19/24 00:45 ABG pCO2 79 mmHg (35-45) H* 04/19/24 00:45 ABG pO2 60 mmHg (83-108) L 04/19/24 00:45 ABG O2 Saturation 90.9 % (94-97) L 04/19/24 00:45 PT/INR, D-dimer PT 10.7 sec (10.0-12.5) 04/18/24 19:40 INR 1.0 (<1.2) 04/18/24 19:40 Abnormal lab findings: Abnormal Labs 04/18/24 04/19/24 19:40 00:45 ABG pH 7.28 L ABG pCO2 79 H* ABG pO2 60 L ABG HCO3 37 H ABG Total CO2 40 H ABG O2 Saturation 90.9 L Carbon Dioxide 38 H BUN 23 H Glucose 133 H Magnesium 1.5 L Total Bilirubin 1.7 H Total Protein 6.0 L - Diagnostic Findings Chest x-ray: image reviewed Assessment and Plan Assessment: Acute on chronic hypoxemic and hypercapnic respiratory failure, secondary to acute COPD exacerbation. Chest x-ray does not show any acute cardiopulmonary process, no focal infiltrates or evidence of pneumonia. There is a prominent right pulmonary artery. Severe hypercapnic encephalopathy Severe chronic obstructive pulmonary disease Chronic hypoxemic respiratory failure, secondary to above, normally on 1.5 L/min nasal cannula while at home History of obstructive sleep apnea History of heart failure, with borderline mildly impaired left ventricular ejection fraction of 45 to 50% History of pulmonary hypertension Chronic atrial fibrillation, anticoagulated on Eliquis History of hyperlipidemia History of hypertension Plan: Continue BiPAP therapy, IPAP has been adjusted to 18 and FiO2 to reduce to 35% ABG noted, will repeat to ensure improvement of severe hypercapnic state Start patient on combination of DuoNebs [id number], budesonide inhalation, formoterol inhalation, and IV Solu-Medrol. Continue home medications including Eliquis and Lasix Protonix for GI prophylaxis. Patient is currently listed as a full code, CODE STATUS needs to be confirmed, as the patient is previously listed as a DO NOT RESUSCITATE on previous hospital admissions. Will continue to follow I have personally seen and examined the patient, performed the documentation and the assessment and plan as written. Number of minutes spent on the visit:20 04/19/2024, the patient is being seen in joint evaluation along with the nurse practitioner. The patient had advanced COPD, oxygen dependent with a previous spirometry shortening to 1 of 37% of predicted. She typically utilizes oxygen at 2 L at home. She presented also because of worsening shortness of breath and acute on top of chronic hypoxic and hypercapnic respiratory failure. The patient admitted to the intensive care unit. The CODE STATUS needs to be clarified and I have this patient listed in the past as a DNR/DNI. In any rate, the patient was supported with a BiPAP and BiPAP is currently running at a pressure of 18/6 cm of water with an FiO2 of 40%. The blood gas showed a pH of 7.29 with a pCO2 of 78 and pO2 of 97. The patient is generating a tidal volume of 460. She is more arousable compared to earlier. She has a low minute ventilation of 4.7 L while being on the BiPAP. She is in atrial fibrillation. Rate is controlled. She is known to have mild systolic heart failure with an ejection fraction of 45%. She is afebrile for now. The plan is to continue the BiPAP therapy for now at the same setting. Will obtain a follow-up blood gas. Will continue bronchodilators and steroids. Will add a combination of Rocephin and Zithromax as an empiric antibiotic coverage. Cut down the IV fluids to 75 cc an hour. Establish a CODE STATUS. Labs were all noted. The patient will be kept in the intensive care unit for now. Time with Patient: Greater than 30
[2024-04-19 05:08] LABS: ABG Base Excess 8.2 mmol/L; ABG HCO3 37 mmol/L (21-25); ABG Oxygen Saturation 97.9 % (94-97); ABG PH 7.29 (7.35-7.45); ABG PO2 97 mmHg (83-108); ABG TCO2 40 mmol/L (19-24); Allen Test Performed? Yes
[2024-04-19 05:16] LABS: ABG PCO2 78 mmHg (35-45)
[2024-04-19 07:37] LABS: Basophils % (A) 0 %; Eosinophils % (A) 0 %; HCT 36.7 % (34.0-46.0); HGB 11.4 gm/dL (11.4-16.0); Hypochromasia Slight; Lymphocytes # (A) 0.3 k/uL (1.0-4.8); Lymphocytes % (A) 5 %; MCH 30.9 pg (25.0-35.0); MCHC 31.1 g/dL (31.0-37.0); MCV 99.3 fL (80.0-100.0); Macrocytosis Slight; Mean Platelet Volume 8.5; Monocytes # (A) 0.1 k/uL (0-1.0); Monocytes % (A) 2 %; Neutrophils # (A) 5.4 k/uL (1.3-7.7); Neutrophils % (A) 92 %; Platelet Count 196 k/uL (150-450); RDW 14.7 % (11.5-15.5); WBC 5.9 k/uL (3.8-10.6)
[2024-04-19] MEDS: methylPREDNISolone SOD SUCCI 125 MG/2 ML VIAL IV SCH (07:55)
[2024-04-19] MEDS: IPRATROPIUM-ALBUTEROL 3 ML NEB INHALATION SCH (07:58)
[2024-04-19] MEDS: BUDESONIDE 1 MG/2 ML NEBU INHALATION SCH (07:58)
[2024-04-19] MEDS: FORMOTEROL FUMARATE 20 MCG/2 ML NEBU INHALATION SCH (07:58)
[2024-04-19 08:03] LABS: ALT 13 U/L (4-34); AST 23 U/L (14-36); African American GFR (CKD) 68 (>60 ml/min/1.73 sqM); Albumin 3.2 g/dL (3.5-5.0); Alkaline Phosphatase 86 U/L (38-126); Anion Gap 2 mmol/L; Blood Urea Nitrogen 23 mg/dL (7-17); Calcium 9.1 mg/dL (8.4-10.2); Carbon Dioxide 39 mmol/L (22-30); Chloride 98 mmol/L (98-107); Glucose 149 mg/dL (74-99); Magnesium 2.2 mg/dL (1.6-2.3); Non-African American GFR(CKD) 59 (>60 ml/min/1.73 sqM); Phosphorus 3.7 mg/dL (2.5-4.5); Potassium 4.1 mmol/L (3.5-5.1); Sodium 139 mmol/L (137-145); Total Bilirubin 1.3 mg/dL (0.2-1.3); Total Protein 5.5 g/dL (6.3-8.2)
[2024-04-19] MEDS ORDERED: APIXABAN 2.5 MG TABLET PO SCH (09:00)
[2024-04-19] MEDS: PANTOPRAZOLE 40 MG/10 ML VIAL IVP SCH (09:11)
[2024-04-19] MEDS: POTASSIUM CHLORIDE ER 10 MEQ TAB.ER.PRT PO SCH (09:18)
[2024-04-19] MEDS: FUROSEMIDE 20 MG TAB PO SCH (09:18)
[2024-04-19] MEDS: ATORVASTATIN 40 MG TAB PO SCH (09:18)
[2024-04-19] MEDS: APIXABAN 2.5 MG TABLET PO SCH (09:19)
[2024-04-19] MEDS: LOSARTAN 25 MG TAB PO SCH (11:09)
[2024-04-19] MEDS: AZITHROMYCIN 500 MG in SODIUM CHLORIDE 0.9% 250 ML IVPB SCH (11:52)
--- NOTE | 2024-04-19 22:46 | P.HPIM ---
History of Present Illness H&P Date: 04/19/24 Chief Complaint: Altered mental status Patient is a 78-year-old female with a past medical history of COPD on home oxygen at 1.5 L via nasal cannula, chronic atrial fibrillation on anticoagulation with Eliquis, hypertension, secondary pulmonary hypertension, obstructive sleep apnea and history of NSTEMI in January 2024 was brought to the hospital due to altered mental status difficulty arousal and severe shortness of breath. Patient was placed on BiPAP in the ER. ABG showed pH 7.28 pCO2 79 pO2 60. Other laboratory data showed WBC 9.6 hemoglobin 12.5 and platelets 216 Sodium 138 potassium 4.2 chloride 98 bicarb is 38 BUN 23 creatinine 0.91 and blood sugar 133 magnesium 1.5 and total bili 1.7 troponin 0.024, 0.033 and 0.025 and proBNP 1310 And albumin 3.7 Chest x-ray showed no acute cardiopulmonary process. Redemonstrated dilated right pulmonary artery which can be associated with pulmonary hypertension. EKG showed atrial fibrillation with rapid ventricular response with heart rate 119 After approximately 30 minutes on BiPAP she was more arousable and responding to verbal stimuli and is able to open her eyes. Review of Systems Constitutional: Patient denies any fever or chills . No generalized weakness or weight loss. Abdomen: Patient denied nausea vomiting and diarrhea and abdominal pain. Cardiovascular: Does have cough without sputum production. Positive for shortness of breath. No palpitations. No worsening leg swelling Respiratory: Cough without sputum production and shortness of breath Neurologic: Patient denied any numbness or tingling. no headache. Musculoskeletal: Patient denies any complaints of joint swelling or deformity. Skin: Negative Psychiatric: Negative Endocrine: No heat or cold intolerance. No recent weight gain. Genitourinary: No dysuria or hematuria. All other 14 point ROS negative except the above Past Medical History Past Medical History: Atrial Fibrillation, COPD, Hypertension Additional Past Medical History / Comment(s): COPD, hypertension, secondary pulmonary hypertension, chronic hypoxic respiratory failure, chronic atrial fibrillation, hyperlipidemia, obstructive sleep apnea, NSTEMI (01/07/24) History of Any Multi-Drug Resistant Organisms: None Reported Additional Past Surgical History / Comment(s): Right lung lung lobectomy, hernia repair and the patient has a large anterior abdominal wall incision, hysterectomy, knee surgery, cholecystectomy Past Anesthesia/Blood Transfusion Reactions: No Reported Reaction Past Psychological History: No Psychological Hx Reported Smoking Status: Never smoker Past Alcohol Use History: Rare Past Drug Use History: None Reported - Past Family History Mother Family Medical History: Cancer Father Family Medical History: Coronary Artery Disease (CAD) Medications and Allergies Home Medications Medication Instructions Recorded Confirmed Type Apixaban [Eliquis] 2.5 mg PO DAILY 03/18/24 04/18/24 History Atorvastatin [Lipitor] 40 mg PO DAILY 03/18/24 04/18/24 History Budesonide-Formot 160-4.5 Mcg 2 puff INHALATION RT-BID 30 Days 03/23/24 04/18/24 Rx [Symbicort 160-4.5 Mcg Inhaler] #1 each ALPRAZolam [Xanax] 0.125 - 0.25 mg PO DAILY PRN 04/18/24 04/18/24 History Furosemide [Lasix] 20 mg PO DAILY 04/18/24 04/18/24 History Ipratropium-Albuterol Nebulize 3 ml INHALATION RT-QID 04/18/24 04/18/24 History [Duoneb 0.5 mg-3 mg/3 ml Soln] Ipratropium-Albuterol Nebulize 3 ml INHALATION RT-TID PRN 04/18/24 04/18/24 History [Duoneb 0.5 mg-3 mg/3 ml Soln] Losartan [Cozaar] 25 mg PO DAILY 04/18/24 04/18/24 History Potassium Chloride 10 meq PO BID 04/18/24 04/18/24 History Allergies Allergy/AdvReac Type Severity Reaction Status Date / Time No Known Allergies Allergy Verified 04/18/24 20:58 Physical Exam Vitals: Vital Signs Temp Pulse Resp BP Pulse Ox FiO2 04/19/24 11:21 30 04/19/24 10:00 70 12 142/51 94 L 04/19/24 09:30 72 12 118/57 94 L 04/19/24 09:00 77 14 124/66 93 L 04/19/24 08:30 76 12 114/71 97 04/19/24 08:21 68 04/19/24 08:10 68 04/19/24 08:01 64 04/19/24 08:00 77 13 93 L 04/19/24 07:52 50 04/19/24 07:50 73 10 L 124/62 92 L 04/19/24 07:40 69 12 126/75 93 L 04/19/24 07:30 77 14 96 04/19/24 07:20 81 14 106/68 96 04/19/24 07:00 82 16 134/75 97 40 04/19/24 06:58 98.6 F 83 23 133/85 95 04/19/24 04:33 50 04/19/24 04:00 78 22 133/69 94 L 04/19/24 03:00 93 21 113/70 88 L 04/19/24 02:00 82 22 109/59 89 L 04/19/24 01:00 94 23 119/73 93 L 04/19/24 00:58 35 04/19/24 00:01 92 04/19/24 00:00 90 22 144/65 04/18/24 23:41 111 H 04/18/24 23:37 60 04/18/24 23:00 94 21 117/82 04/18/24 21:22 60 04/18/24 20:41 108 H 04/18/24 20:30 94 20 153/64 94 L 04/18/24 20:13 35 04/18/24 20:07 101 H 04/18/24 20:03 35 04/18/24 19:35 98.5 F 90 28 H 145/79 92 L Intake and Output 04/18/24 04/19/24 04/19/24 22:59 06:59 14:59 Intake Total 260 Balance 260 Intake: Intake, IV Titration 260 Amount Sodium Chloride 0.9% 1, 260 000 ml @ 130 mls/hr IV . Q7H42M [facility] Rx#:[id number] Other: # Voids 1 Weight 113.398 kg PHYSICAL EXAMINATION: Patient is lying in the bed comfortably, no acute distress, awake alert and oriented.. HEENT: Normocephalic. Neck is supple. Pupils reactive. Nostrils clear. Oral cavity is moist. Neck reveals no JVD, carotid bruits, or thyromegaly. CHEST EXAMINATION: Trachea is central. Symmetrical expansion. Bibasilar diminished sounds and diffuse wheezing. CARDIAC: Normal S1, S2 with no gallops. No murmurs, irregularly irregular rhythm. ABDOMEN: Soft. Bowel sounds normal. No organomegaly. No abdominal bruits. Extremities: Trace pedal edema. No clubbing or cyanosis Neurologically awake, alert, oriented x3 with well-coordinated movements. No focal deficits noted Skin: No rash or skin lesions. Psychiatric: Coperative. Nonsuicidal Musculoskeletal: No joint swelling or deformity. Normal range of motion. Results CBC & Chem 7: 04/19/24 07:27 04/19/24 07:27 Labs: Abnormal Lab Results - Last 24 Hours (Table) 04/18/24 04/19/24 04/19/24 Range/Units 19:40 00:45 05:05 RBC (3.80-5.40) m/uL Lymphocytes # (1.0-4.8) k/uL ABG pH 7.28 L 7.29 L (7.35-7.45) ABG pCO2 79 H* 78 H* (35-45) mmHg ABG pO2 60 L (83-108) mmHg ABG HCO3 37 H 37 H (21-25) mmol/L ABG Total CO2 40 H 40 H (19-24) mmol/L ABG O2 Saturation 90.9 L 97.9 H (94-97) % Carbon Dioxide 38 H (22-30) mmol/L BUN 23 H (7-17) mg/dL Glucose 133 H (74-99) mg/dL Magnesium 1.5 L (1.6-2.3) mg/dL Total Bilirubin 1.7 H (0.2-1.3) mg/dL Total Protein 6.0 L (6.3-8.2) g/dL Albumin (3.5-5.0) g/dL 04/19/24 04/19/24 Range/Units 07:27 07:27 RBC 3.70 L (3.80-5.40) m/uL Lymphocytes # 0.3 L (1.0-4.8) k/uL ABG pH (7.35-7.45) ABG pCO2 (35-45) mmHg ABG pO2 (83-108) mmHg ABG HCO3 (21-25) mmol/L ABG Total CO2 (19-24) mmol/L ABG O2 Saturation (94-97) % Carbon Dioxide 39 H (22-30) mmol/L BUN 23 H (7-17) mg/dL Glucose 149 H (74-99) mg/dL Magnesium (1.6-2.3) mg/dL Total Bilirubin (0.2-1.3) mg/dL Total Protein 5.5 L (6.3-8.2) g/dL Albumin 3.2 L (3.5-5.0) g/dL Thrombosis Risk Factor Assmnt - DVT/VTE Prophylaxis DVT/VTE Prophylaxis: Pharmacologic Prophylaxis ordered Assessment and Plan Assessment: Acute on chronic hypoxic and hypercapnic respiratory failure requiring BiPAP on admission due to acute COPD exacerbation. Hypercapnic encephalopathy improving Severe COPD and chronic hypoxic respiratory failure on oxygen at 1.5 L via nasal cannula at home Obstructive sleep apnea Moderate pulmonary hypertension Chronic atrial fibrillation with rapid Response History of NSTEMI in January 2024 Hypertension Hyperlipidemia Morbid obesity with BMI 42.9 DVT prophylaxis patient is already on full anticoagulation GI prophylaxis PPI Plan: Patient is in the MICU. Patient is being continued on BiPAP and gradually titrate down to oxygen via nasal cannula. Continue with IV Solu-Medrol, DuoNebs and Pulmicort/Perforomist inhalation. Continue with home medication including Eliquis and Lasix. Continue with GI and DVT prophylaxis. Critical care team is on board. Follow- up closely. Time with Patient: Greater than 30
[2024-04-20 04:47] LABS: Basophils % (A) 0 %; Eosinophils % (A) 0 %; HCT 31.7 % (34.0-46.0); Hypochromasia Slight; Lymphocytes # (A) 0.3 k/uL (1.0-4.8); Lymphocytes % (A) 7 %; MCH 31.2 pg (25.0-35.0); MCHC 31.7 g/dL (31.0-37.0); MCV 98.6 fL (80.0-100.0); Mean Platelet Volume 7.4; Monocytes # (A) 0.2 k/uL (0-1.0); Monocytes % (A) 4 %; Neutrophils # (A) 4.4 k/uL (1.3-7.7); Neutrophils % (A) 88 %; Platelet Count 193 k/uL (150-450); RBC 3.21 m/uL (3.80-5.40); RDW 14.6 % (11.5-15.5)
[2024-04-20 04:59] LABS: African American GFR (CKD) 87 (>60 ml/min/1.73 sqM); Anion Gap -2 mmol/L; Blood Urea Nitrogen 24 mg/dL (7-17); Calcium 9.2 mg/dL (8.4-10.2); Carbon Dioxide 37 mmol/L (22-30); Chloride 102 mmol/L (98-107); Glucose 153 mg/dL (74-99); Non-African American GFR(CKD) 75 (>60 ml/min/1.73 sqM); Potassium 3.9 mmol/L (3.5-5.1); Sodium 137 mmol/L (137-145)
--- NOTE | 2024-04-20 08:57 | XR ---
EXAMINATION TYPE: XR chest 1V DATE OF EXAM: 04/20/2024 HISTORY: Shortness of breath. COMPARISON: 04/18/2024 TECHNIQUE: Single view of the chest is submitted. FINDINGS: Demonstrated are scattered senescent parenchymal change. There is no evidence for focal infiltrate. The heart is stable. Hilar and mediastinal structures are within normal limits. Degenerative changes are seen of the dorsal spine. IMPRESSION: 1. Chronic changes without evidence for acute pulmonary disease.
[2024-04-20 12:10] LABS: ABG Base Excess 7.9 mmol/L; ABG HCO3 35 mmol/L (21-25); ABG Oxygen Saturation 97.9 % (94-97); ABG PCO2 64 mmHg (35-45); ABG PH 7.35 (7.35-7.45); ABG PO2 90 mmHg (83-108); ABG TCO2 37 mmol/L (19-24); Allen Test Performed? Yes
--- NOTE | 2024-04-20 15:44 | P.PN ---
Subjective Progress Note Date: 04/20/24 Patient is a 78-year-old white female with past medical history significant for severe COPD, chronic hypoxemic and hypercapnic respiratory failure on 1.5 L nasal cannula while at home, and obstructive sleep apnea. She follows in the pulmonary office with Dr. Welch. She has had a recent hospitalization last month with similar presentation. She presented the emergency room late last night, she was noted to be short of breath and difficult to arouse. On my evaluation the patient is still in the emergency department, trauma bay 2. Initially, difficult to arouse with painful stimuli. She was on BiPAP with settings 12/6 and FiO2 of 60%. She is only achieving tidal volumes of around 200 and her respiratory rate is in the mid 20s. Her IPAP was increased to 18 and FiO2 was dropped to 35%. After approximately 30 minutes the patient has started to more more arousable to verbal stimuli and will open her eyes. She remains disoriented. Follow-up ABG pH of 7.28, pCO2 of 79, pO2 of 60. Chest x- ray does not reveal any acute cardiopulmonary process, no acute infiltrates or evidence of pneumonia. There is a prominent right pulmonary artery. CBC unremarkable. No leukocytosis. No fevers. BMP also unremarkable except for hypercarbia. Troponin 0.024 and 0.033 respectively. NT proBNP 1310. EKG shows atrial fibrillation with a rate of 109 bpm. No acute ischemic changes noted. Patient is known to have chronic atrial fibrillation, anticoagulated on Eliquis, also hyperlipidemia, hypertension. Note that the patient was previously listed as a DO NOT RESUSCITATE on previous hospital admissions. Currently listed as a full code, this will to be clarified with family. On today's evaluation of 04/20/2024, the patient is feeling well. With a pH of 7.35 with a pCO2 of 64 and pO2 of 90. No signs of any CO2 narcosis at this point in time. No chest pain. She reports improvement in her breathing status. Chest x-ray shows no acute pulm abnormalities. She remains on bronchodilators. She remains on steroids. She remains on oral Lasix. She remains on a combination of Rocephin and Zithromax. The white cell count is 5 with a hemoglobin of 10 and platelet count of 193. BUN is 24 with a creatinine 0.7 and sodium is at 137. Free of any chest pain. She remains in atrial fibrillation. Objective - Vital Signs Vital signs: Vital Signs Temp 98.0 F 04/20/24 12:00 Pulse 82 04/20/24 15:39 Resp 16 04/20/24 12:00 BP 124/60 04/20/24 12:00 Pulse Ox 98 04/20/24 12:00 FiO2 40 04/20/24 03:57 Intake & Output 04/19/24 04/20/24 04/20/24 18:59 06:59 18:59 Intake Total 1085 900 640 Output Total 550 300 Balance 535 600 640 Weight 113.398 kg 113.4 kg Intake: IV 565 Azithromycin 500 mg In 250 Sodium Chloride 0.9% 250 ml @ 250 mls/hr IVPB DAILY [facility] Rx#:[id number] Sodium Chloride 0.9% 1, 265 000 ml @ 10 mls/hr IV . Q24H [facility] Rx#:[id number] cefTRIAXone 1 gm In 50 Sodium Chloride 0.9% 50 ml @ 100 mls/hr IVPB Q24HR [facility] Rx#:[id number] Intake, IV Titration 1085 900 75 Amount Azithromycin 500 mg In 250 Sodium Chloride 0.9% 250 ml @ 250 mls/hr IVPB DAILY [facility] Rx#:[id number] Sodium Chloride 0.9% 1, 375 900 75 000 ml @ 10 mls/hr IV . Q24H [facility] Rx#:[id number] Sodium Chloride 0.9% 1, 410 000 ml @ 130 mls/hr IV . Q7H42M [facility] Rx#:[id number] cefTRIAXone 1 gm In 50 Sodium Chloride 0.9% 50 ml @ 100 mls/hr IVPB Q24HR [facility] Rx#:[id number] Output: Urine 550 300 Other: Voiding Method External Catheter External Catheter External Catheter # Voids 1 2 # Bowel Movements 1 - Exam GENERAL EXAM: Lethargic, morbidly obese 78-year-old white female, currently off the BiPAP and currently she is on 2 L of oxygen by nasal cannula. HEAD: Normocephalic and atraumatic EYES: Normal reaction of pupils, equal size. NOSE: Clear with pink turbinates. THROAT: No erythema or exudates. NECK: No masses, no JVD. CHEST: No chest wall deformity. LUNGS: Equal air entry with bilateral rhonchi and expiratory wheezing. Air entry is improved bilaterally. Limited bronchospasm and wheezing still appreciated. CVS: S1 and S2 normal with no audible murmur, irregular rhythm. No extra heart sounds ABDOMEN: No hepatosplenomegaly, active bowel sounds, no guarding or rigidity. SPINE: No scoliosis or deformity SKIN: No rashes CENTRAL NERVOUS SYSTEM: Remains lethargic, but more arousable to verbal stimuli, no focal deficits noted. EXTREMITIES: There is no peripheral edema, clubbing, or cyanosis. Peripheral pulses are intact. - Labs CBC & Chem 7: 04/20/24 03:48 04/20/24 03:48 Labs: Abnormal Lab Results - Last 24 Hours (Table) 04/20/24 04/20/24 04/20/24 Range/Units 03:48 03:48 12:08 RBC 3.21 L (3.80-5.40) m/uL Hgb 10.0 L (11.4-16.0) gm/dL Hct 31.7 L (34.0-46.0) % Lymphocytes # 0.3 L (1.0-4.8) k/uL ABG pCO2 64 H (35-45) mmHg ABG HCO3 35 H (21-25) mmol/L ABG Total CO2 37 H (19-24) mmol/L ABG O2 Saturation 97.9 H (94-97) % Carbon Dioxide 37 H (22-30) mmol/L BUN 24 H (7-17) mg/dL Glucose 153 H (74-99) mg/dL Assessment and Plan Assessment: Acute on chronic hypoxemic and hypercapnic respiratory failure, secondary to acute COPD exacerbation. Chest x-ray does not show any acute cardiopulmonary process, no focal infiltrates or evidence of pneumonia. There is a prominent right pulmonary artery. Clinically improving and the patient's blood gas showed improvement in acid-base status. Acute on top of chronic hypercapnic encephalopathy, improving without any signs of any CO2 narcosis. Severe chronic obstructive pulmonary disease Chronic hypoxemic respiratory failure, secondary to above, normally on 1.5 L/min nasal cannula while at home History of obstructive sleep apnea History of heart failure, with borderline mildly impaired left ventricular ejection fraction of 45 to 50% History of pulmonary hypertension Chronic atrial fibrillation, anticoagulated on Eliquis History of hyperlipidemia History of hypertension Plan: Keep the patient on 2 L of oxygen by nasal cannula BiPAP can be utilized overnight Clinically stable and the patient is awake without any signs of CO2 narcosis Continue DuoNebs [id number], budesonide inhalation, formoterol inhalation, and IV Solu-Medrol. Continue home medications including Eliquis Continue oral Lasix Protonix for GI prophylaxis. Patient is currently listed as a full code, CODE STATUS needs to be confirmed, as the patient is previously listed as a DO NOT RESUSCITATE on previous hospital admissions. Will continue to follow
[2024-04-20] MEDS: ACETAMINOPHEN TAB 325 MG TAB PO PRN (17:24)
[2024-04-21 06:31] LABS: Glucose,Whole Blood 150 mg/dL (70-110)
[2024-04-21 10:29] LABS: Basophils % (A) 0 %; Eosinophils % (A) 0 %; HGB 11.6 gm/dL (11.4-16.0); Hypochromasia Moderate; Lymphocytes # (A) 0.4 k/uL (1.0-4.8); Lymphocytes % (A) 5 %; MCH 30.4 pg (25.0-35.0); MCHC 30.5 g/dL (31.0-37.0); MCV 99.8 fL (80.0-100.0); Macrocytosis Slight; Mean Platelet Volume 7.8; Monocytes # (A) 0.3 k/uL (0-1.0); Monocytes % (A) 4 %; Neutrophils # (A) 7.6 k/uL (1.3-7.7); Neutrophils % (A) 90 %; Platelet Count 231 k/uL (150-450); RDW 14.6 % (11.5-15.5); WBC 8.4 k/uL (3.8-10.6)
[2024-04-21 10:43] LABS: African American GFR (CKD) 87 (>60 ml/min/1.73 sqM); Anion Gap 4 mmol/L; Blood Urea Nitrogen 29 mg/dL (7-17); Calcium 9.9 mg/dL (8.4-10.2); Carbon Dioxide 32 mmol/L (22-30); Chloride 103 mmol/L (98-107); Glucose 176 mg/dL (74-99); Non-African American GFR(CKD) 75 (>60 ml/min/1.73 sqM); Potassium 4.5 mmol/L (3.5-5.1); Sodium 139 mmol/L (137-145)
[2024-04-21 11:22] LABS: Glucose,Whole Blood 219 mg/dL (70-110)
[2024-04-21] MEDS ORDERED: DEXTROSE 50% SYRINGE 50 ML IVP PRN ×2 (11:28)
[2024-04-21] MEDS: guaiFENesin-DM 600/30MG 1 EACH TAB.ER.12H PO SCH (11:44)
[2024-04-21] MEDS: INSULIN ASPART (NovoLOG) 100 UNIT/ML VIAL SQ SCH (11:45)
[2024-04-21 16:10] LABS: Glucose,Whole Blood 179 mg/dL (70-110)
--- NOTE | 2024-04-21 18:30 | P.PN ---
Subjective Progress Note Date: 04/21/24 Patient is a 78-year-old white female with past medical history significant for severe COPD, chronic hypoxemic and hypercapnic respiratory failure on 1.5 L nasal cannula while at home, and obstructive sleep apnea. She follows in the pulmonary office with Dr. Welch. She has had a recent hospitalization last month with similar presentation. She presented the emergency room late last night, she was noted to be short of breath and difficult to arouse. On my evaluation the patient is still in the emergency department, trauma bay 2. Initially, difficult to arouse with painful stimuli. She was on BiPAP with settings 12/6 and FiO2 of 60%. She is only achieving tidal volumes of around 200 and her respiratory rate is in the mid 20s. Her IPAP was increased to 18 and FiO2 was dropped to 35%. After approximately 30 minutes the patient has started to more more arousable to verbal stimuli and will open her eyes. She remains disoriented. Follow-up ABG pH of 7.28, pCO2 of 79, pO2 of 60. Chest x- ray does not reveal any acute cardiopulmonary process, no acute infiltrates or evidence of pneumonia. There is a prominent right pulmonary artery. CBC unremarkable. No leukocytosis. No fevers. BMP also unremarkable except for hypercarbia. Troponin 0.024 and 0.033 respectively. NT proBNP 1310. EKG shows atrial fibrillation with a rate of 109 bpm. No acute ischemic changes noted. Patient is known to have chronic atrial fibrillation, anticoagulated on Eliquis, also hyperlipidemia, hypertension. Note that the patient was previously listed as a DO NOT RESUSCITATE on previous hospital admissions. Currently listed as a full code, this will to be clarified with family. On today's evaluation of 04/20/2024, the patient is feeling well. With a pH of 7.35 with a pCO2 of 64 and pO2 of 90. No signs of any CO2 narcosis at this point in time. No chest pain. She reports improvement in her breathing status. Chest x-ray shows no acute pulm abnormalities. She remains on bronchodilators. She remains on steroids. She remains on oral Lasix. She remains on a combination of Rocephin and Zithromax. The white cell count is 5 with a hemoglobin of 10 and platelet count of 193. BUN is 24 with a creatinine 0.7 and sodium is at 137. Free of any chest pain. She remains in atrial fibrillation. 04/21/2024, patient is being seen for a follow-up. The patient is feeling better compared to yesterday. She is less bronchospastic and wheezy. She is currently off the BiPAP. She is currently on oxygen at 3 L with a pulse ox of 99%. She has a cough and a minimal amount of sputum production. The white cell count is at 8.4 with hemoglobin 11.6 and a platelet count of 231. Electrolytes are all within normal limits. BUN is 29 with a creatinine of 0.7. No other significant events overnight. The patient remains on IV Rocephin. The patient remains on IV fluids at KVO. No chest pain. No altered mentation. Objective - Vital Signs Vital signs: Vital Signs Temp 97.5 F L 04/21/24 08:00 Pulse 70 04/21/24 10:00 Resp 18 04/21/24 08:00 BP 135/83 04/21/24 08:00 Pulse Ox 97 04/21/24 09:41 FiO2 40 04/21/24 03:33 Intake & Output 04/20/24 04/21/24 04/21/24 18:59 06:59 18:59 Intake Total 640 350 Output Total 200 Balance 640 150 Intake: IV 565 Azithromycin 500 mg In 250 Sodium Chloride 0.9% 250 ml @ 250 mls/hr IVPB DAILY [facility] Rx#:[id number] Sodium Chloride 0.9% 1, 265 000 ml @ 10 mls/hr IV . Q24H [facility] Rx#:[id number] cefTRIAXone 1 gm In 50 Sodium Chloride 0.9% 50 ml @ 100 mls/hr IVPB Q24HR [facility] Rx#:[id number] Intake, IV Titration 75 Amount Sodium Chloride 0.9% 1, 75 000 ml @ 10 mls/hr IV . Q24H [facility] Rx#:[id number] Oral 350 Output: Urine 200 Other: Voiding Method External Catheter Bedside Commode Bedside Commode External Catheter External Catheter # Voids 2 - Exam GENERAL EXAM: Lethargic, morbidly obese 78-year-old white female, currently on 2 L of oxygen by nasal cannula. HEAD: Normocephalic and atraumatic EYES: Normal reaction of pupils, equal size. NOSE: Clear with pink turbinates. THROAT: No erythema or exudates. NECK: No masses, no JVD. CHEST: No chest wall deformity. LUNGS: Equal air entry with bilateral rhonchi and expiratory wheezing. Air entry is improved bilaterally. Limited bronchospasm and wheezing still appreciated. CVS: S1 and S2 normal with no audible murmur, irregular rhythm. No extra heart sounds ABDOMEN: No hepatosplenomegaly, active bowel sounds, no guarding or rigidity. SPINE: No scoliosis or deformity SKIN: No rashes CENTRAL NERVOUS SYSTEM: Remains lethargic, but more arousable to verbal stimuli, no focal deficits noted. EXTREMITIES: There is no peripheral edema, clubbing, or cyanosis. Peripheral pulses are intact. - Labs CBC & Chem 7: 04/21/24 09:36 04/21/24 09:36 Labs: Abnormal Lab Results - Last 24 Hours (Table) 04/20/24 04/21/24 04/21/24 Range/Units 12:08 06:29 09:36 MCHC 30.5 L (31.0-37.0) g/dL Lymphocytes # 0.4 L (1.0-4.8) k/uL ABG pCO2 64 H (35-45) mmHg ABG HCO3 35 H (21-25) mmol/L ABG Total CO2 37 H (19-24) mmol/L ABG O2 Saturation 97.9 H (94-97) % Carbon Dioxide (22-30) mmol/L BUN (7-17) mg/dL Glucose (74-99) mg/dL POC Glucose (mg/dL) 150 H (70-110) mg/dL 04/21/24 Range/Units 09:36 MCHC (31.0-37.0) g/dL Lymphocytes # (1.0-4.8) k/uL ABG pCO2 (35-45) mmHg ABG HCO3 (21-25) mmol/L ABG Total CO2 (19-24) mmol/L ABG O2 Saturation (94-97) % Carbon Dioxide 32 H (22-30) mmol/L BUN 29 H (7-17) mg/dL Glucose 176 H (74-99) mg/dL POC Glucose (mg/dL) (70-110) mg/dL Assessment and Plan Assessment: Acute on chronic hypoxemic and hypercapnic respiratory failure, secondary to acute COPD exacerbation. Chest x-ray does not show any acute cardiopulmonary process, no focal infiltrates or evidence of pneumonia. There is a prominent right pulmonary artery. Clinically improving and the patient's blood gas showed improvement in acid-base status. The patient is currently off the BiPAP and the patient is currently on 2 L of oxygen by nasal cannula Acute on top of chronic hypercapnic encephalopathy, improving without any signs of any CO2 narcosis. Severe chronic obstructive pulmonary disease Chronic hypoxemic respiratory failure, secondary to above, normally on 1.5 L/min nasal cannula while at home History of obstructive sleep apnea History of heart failure, with borderline mildly impaired left ventricular ejection fraction of 45 to 50% History of pulmonary hypertension Chronic atrial fibrillation, anticoagulated on Eliquis History of hyperlipidemia History of hypertension Plan: Keep the patient on 2 L of oxygen by nasal cannula BiPAP can be utilized overnight Add Mucinex DM for cough and congestion Clinically stable and the patient is awake without any signs of CO2 narcosis Continue DuoNebs [id number], budesonide inhalation, formoterol inhalation Continue IV Solu-Medrol. Continue home medications including Eliquis Continue oral Lasix Protonix for GI prophylaxis. Patient is currently listed as a full code, CODE STATUS needs to be confirmed, as the patient is previously listed as a DO NOT RESUSCITATE on previous hospital admissions. Will continue to follow
[2024-04-21 21:03] LABS: Glucose,Whole Blood 148 mg/dL (70-110)
[2024-04-21] MEDS: ALPRAZolam 0.5 MG TAB PO PRN (21:12)
[2024-04-22 05:49] LABS: Glucose,Whole Blood 139 mg/dL (70-110)
[2024-04-22 06:53] LABS: Basophils % (A) 0 %; Eosinophils % (A) 0 %; HCT 32.4 % (34.0-46.0); HGB 10.4 gm/dL (11.4-16.0); Lymphocytes # (A) 0.5 k/uL (1.0-4.8); Lymphocytes % (A) 6 %; MCHC 32.1 g/dL (31.0-37.0); MCV 96.8 fL (80.0-100.0); Mean Platelet Volume 7.6; Monocytes # (A) 0.3 k/uL (0-1.0); Monocytes % (A) 3 %; Neutrophils # (A) 6.7 k/uL (1.3-7.7); Neutrophils % (A) 89 %; Platelet Count 226 k/uL (150-450); RBC 3.35 m/uL (3.80-5.40); RDW 14.6 % (11.5-15.5); WBC 7.6 k/uL (3.8-10.6)
[2024-04-22 07:22] LABS: African American GFR (CKD) 79 (>60 ml/min/1.73 sqM); Anion Gap 0 mmol/L; Blood Urea Nitrogen 26 mg/dL (7-17); Calcium 9.6 mg/dL (8.4-10.2); Carbon Dioxide 38 mmol/L (22-30); Chloride 100 mmol/L (98-107); Glucose 133 mg/dL (74-99); Non-African American GFR(CKD) 68 (>60 ml/min/1.73 sqM); Potassium 4.1 mmol/L (3.5-5.1); Sodium 138 mmol/L (137-145)
[2024-04-22] MEDS: NYSTATIN 100,000 UNIT/GM POWD 15 GM TOPICAL SCH (08:44)
[2024-04-22 12:02] LABS: Glucose,Whole Blood 159 mg/dL (70-110)
--- NOTE | 2024-04-22 12:15 | P.PN ---
Subjective Progress Note Date: 04/22/24 Patient is a 78-year-old white female with past medical history significant for severe COPD, chronic hypoxemic and hypercapnic respiratory failure on 1.5 L nasal cannula while at home, and obstructive sleep apnea. She follows in the pulmonary office with Dr. Welch. She has had a recent hospitalization last month with similar presentation. She presented the emergency room late last night, she was noted to be short of breath and difficult to arouse. On my evaluation the patient is still in the emergency department, trauma bay 2. Initially, difficult to arouse with painful stimuli. She was on BiPAP with settings 12/6 and FiO2 of 60%. She is only achieving tidal volumes of around 200 and her respiratory rate is in the mid 20s. Her IPAP was increased to 18 and FiO2 was dropped to 35%. After approximately 30 minutes the patient has started to more more arousable to verbal stimuli and will open her eyes. She remains disoriented. Follow-up ABG pH of 7.28, pCO2 of 79, pO2 of 60. Chest x- ray does not reveal any acute cardiopulmonary process, no acute infiltrates or evidence of pneumonia. There is a prominent right pulmonary artery. CBC unremarkable. No leukocytosis. No fevers. BMP also unremarkable except for hypercarbia. Troponin 0.024 and 0.033 respectively. NT proBNP 1310. EKG shows atrial fibrillation with a rate of 109 bpm. No acute ischemic changes noted. Patient is known to have chronic atrial fibrillation, anticoagulated on Eliquis, also hyperlipidemia, hypertension. Note that the patient was previously listed as a DO NOT RESUSCITATE on previous hospital admissions. Currently listed as a full code, this will to be clarified with family. On today's evaluation of 04/20/2024, the patient is feeling well. With a pH of 7.35 with a pCO2 of 64 and pO2 of 90. No signs of any CO2 narcosis at this point in time. No chest pain. She reports improvement in her breathing status. Chest x-ray shows no acute pulm abnormalities. She remains on bronchodilators. She remains on steroids. She remains on oral Lasix. She remains on a combination of Rocephin and Zithromax. The white cell count is 5 with a hemoglobin of 10 and platelet count of 193. BUN is 24 with a creatinine 0.7 and sodium is at 137. Free of any chest pain. She remains in atrial fibrillation. 04/21/2024, patient is being seen for a follow-up. The patient is feeling better compared to yesterday. She is less bronchospastic and wheezy. She is currently off the BiPAP. She is currently on oxygen at 3 L with a pulse ox of 99%. She has a cough and a minimal amount of sputum production. The white cell count is at 8.4 with hemoglobin 11.6 and a platelet count of 231. Electrolytes are all within normal limits. BUN is 29 with a creatinine of 0.7. No other significant events overnight. The patient remains on IV Rocephin. The patient remains on IV fluids at KVO. No chest pain. No altered mentation. 04/22/2024, the patient is being seen for a follow-up. Less bronchospastic and wheezy on today's evaluation. No new complaints. Utilizing the BiPAP overnight. Patient's cough and congestion is improved as the patient is also utilizing Mucinex DM. Remains on IV Solu-Medrol 60 mg every 6 hours. The white cell count is at 7.6 with a hemoglobin 10.4, electrolytes are stable with a BUN of 26 and a creatinine of 0.82. No signs of any respiratory distress. No altered mentation. Objective - Vital Signs Vital signs: Vital Signs Temp 98.5 F 04/21/24 19:20 Pulse 77 04/22/24 09:17 Resp 16 04/22/24 04:40 BP 152/75 04/22/24 04:40 Pulse Ox 97 04/22/24 09:16 FiO2 40 04/22/24 03:35 Intake & Output 04/21/24 04/22/24 04/22/24 18:59 06:59 18:59 Intake Total 1370 120 Output Total 550 Balance 820 120 Intake: Oral 1370 120 Output: Urine 550 Other: Voiding Method Bedside Commode Bedside Commode External Catheter External Catheter # Voids 1 - Exam GENERAL EXAM: Lethargic, morbidly obese 78-year-old white female, currently on 2 L of oxygen by nasal cannula. HEAD: Normocephalic and atraumatic EYES: Normal reaction of pupils, equal size. NOSE: Clear with pink turbinates. THROAT: No erythema or exudates. NECK: No masses, no JVD. CHEST: No chest wall deformity. LUNGS: Equal air entry with bilateral rhonchi and expiratory wheezing. Air entry is improved bilaterally. Limited bronchospasm and wheezing still appreciated. CVS: S1 and S2 normal with no audible murmur, irregular rhythm. No extra heart sounds ABDOMEN: No hepatosplenomegaly, active bowel sounds, no guarding or rigidity. SPINE: No scoliosis or deformity SKIN: No rashes CENTRAL NERVOUS SYSTEM: Remains lethargic, but more arousable to verbal stimuli, no focal deficits noted. EXTREMITIES: There is no peripheral edema, clubbing, or cyanosis. Peripheral pulses are intact. - Labs CBC & Chem 7: 04/22/24 06:26 04/22/24 06:26 Labs: Abnormal Lab Results - Last 24 Hours (Table) 04/21/24 04/21/24 04/21/24 Range/Units 09:36 09:36 11:20 RBC (3.80-5.40) m/uL Hgb (11.4-16.0) gm/dL Hct (34.0-46.0) % MCHC 30.5 L (31.0-37.0) g/dL Lymphocytes # 0.4 L (1.0-4.8) k/uL Carbon Dioxide 32 H (22-30) mmol/L BUN 29 H (7-17) mg/dL Glucose 176 H (74-99) mg/dL POC Glucose (mg/dL) 219 H (70-110) mg/dL 04/21/24 04/21/24 04/22/24 Range/Units 16:09 21:02 05:48 RBC (3.80-5.40) m/uL Hgb (11.4-16.0) gm/dL Hct (34.0-46.0) % MCHC (31.0-37.0) g/dL Lymphocytes # (1.0-4.8) k/uL Carbon Dioxide (22-30) mmol/L BUN (7-17) mg/dL Glucose (74-99) mg/dL POC Glucose (mg/dL) 179 H 148 H 139 H (70-110) mg/dL 04/22/24 04/22/24 Range/Units 06:26 06:26 RBC 3.35 L (3.80-5.40) m/uL Hgb 10.4 L (11.4-16.0) gm/dL Hct 32.4 L (34.0-46.0) % MCHC (31.0-37.0) g/dL Lymphocytes # 0.5 L (1.0-4.8) k/uL Carbon Dioxide 38 H (22-30) mmol/L BUN 26 H (7-17) mg/dL Glucose 133 H (74-99) mg/dL POC Glucose (mg/dL) (70-110) mg/dL Assessment and Plan Assessment: Acute on chronic hypoxemic and hypercapnic respiratory failure, secondary to acute COPD exacerbation. Chest x-ray does not show any acute cardiopulmonary process, no focal infiltrates or evidence of pneumonia. There is a prominent right pulmonary artery. Clinically improving and the patient's blood gas showed improvement in acid-base status. The patient is currently off the BiPAP and the patient is currently on 2 L of oxygen by nasal cannula Acute on top of chronic hypercapnic encephalopathy, improving without any signs of any CO2 narcosis. Severe chronic obstructive pulmonary disease Chronic hypoxemic respiratory failure, secondary to above, normally on 1.5 L/min nasal cannula while at home History of obstructive sleep apnea History of heart failure, with borderline mildly impaired left ventricular ejection fraction of 45 to 50% History of pulmonary hypertension Chronic atrial fibrillation, anticoagulated on Eliquis History of hyperlipidemia History of hypertension Plan: Clinically improving Less short of breath compared to yesterday Keep the patient on 2 L of oxygen by nasal cannula BiPAP can be utilized overnight Add Mucinex DM for cough and congestion Clinically stable and the patient is awake without any signs of CO2 narcosis Continue DuoNebs [id number], budesonide inhalation, formoterol inhalation Continue IV Solu-Medrol for another 24 hours Continue home medications including Eliquis Continue oral Lasix Protonix for GI prophylaxis. Patient is currently listed as a full code, CODE STATUS needs to be confirmed, as the patient is previously listed as a DO NOT RESUSCITATE on previous hospital admissions. Will continue to follow
[2024-04-22 16:28] LABS: Glucose,Whole Blood 176 mg/dL (70-110)
[2024-04-22 20:47] LABS: Glucose,Whole Blood 184 mg/dL (70-110)
--- NOTE | 2024-04-22 22:04 | P.PN ---
Subjective Progress Note Date: 04/20/24 Patient is a 78-year-old female with a past medical history of COPD on home oxygen at 1.5 L via nasal cannula, chronic atrial fibrillation on anticoagulation with Eliquis, hypertension, secondary pulmonary hypertension, obstructive sleep apnea and history of NSTEMI in January 2024 was brought to the hospital due to altered mental status difficulty arousal and severe shortness of breath. Patient was placed on BiPAP in the ER. ABG showed pH 7.28 pCO2 79 pO2 60. Other laboratory data showed WBC 9.6 hemoglobin 12.5 and platelets 216 Sodium 138 potassium 4.2 chloride 98 bicarb is 38 BUN 23 creatinine 0.91 and blood sugar 133 magnesium 1.5 and total bili 1.7 troponin 0.024, 0.033 and 0.025 and proBNP 1310 And albumin 3.7 Chest x-ray showed no acute cardiopulmonary process. Redemonstrated dilated rig ht pulmonary artery which can be associated with pulmonary hypertension. EKG showed atrial fibrillation with rapid ventricular response with heart rate 119 After approximately 30 minutes on BiPAP she was more arousable and responding to verbal stimuli and is able to open her eyes. 04/20/2024 Patient is in the MICU. Currently sitting on the couch. Awake alert and oriented x 3. Breathing status is slightly improved. Chest x-ray showed no acute pulmonary infiltrates. Otherwise patient remains on IV Solu-Medrol, DuoNebs and Lasix. Also on antibiotics on ceftriaxone azithromycin. Laboratory data showed WBC 5.0 hemoglobin 10.0 and platelets 493 sodium 137 potassium 3.9 chloride 102 bicarb is 37 BUN 24 and creatinine 0.76 and blood sugar 153. ABG showed pH 7.35 pCO2 64 pO2 90 and bicarb 35. Pulmonary is on board. Current medications reviewed. Objective - Vital Signs Vital signs: Vital Signs Temp 98.1 F 04/20/24 20:30 Pulse 84 04/20/24 20:35 Resp 16 04/20/24 20:30 BP 120/75 04/20/24 20:30 Pulse Ox 95 04/20/24 20:30 FiO2 40 04/20/24 03:57 Intake & Output 04/20/24 04/20/24 04/21/24 06:59 18:59 06:59 Intake Total 900 640 Output Total 300 Balance 600 640 Weight 113.4 kg Intake: IV 565 Azithromycin 500 mg In 250 Sodium Chloride 0.9% 250 ml @ 250 mls/hr IVPB DAILY [facility] Rx#:[id number] Sodium Chloride 0.9% 1, 265 000 ml @ 10 mls/hr IV . Q24H [facility] Rx#:[id number] cefTRIAXone 1 gm In 50 Sodium Chloride 0.9% 50 ml @ 100 mls/hr IVPB Q24HR [facility] Rx#:[id number] Intake, IV Titration 900 75 Amount Sodium Chloride 0.9% 1, 900 75 000 ml @ 10 mls/hr IV . Q24H [facility] Rx#:[id number] Output: Urine 300 Other: Voiding Method External Catheter External Catheter # Voids 2 - Exam PHYSICAL EXAMINATION: Patient is lying in the bed comfortably, no acute distress, awake alert and oriented.. HEENT: Normocephalic. Neck is supple. Pupils reactive. Nostrils clear. Oral cavity is moist. Neck reveals no JVD, carotid bruits, or thyromegaly. CHEST EXAMINATION: Trachea is central. Symmetrical expansion. Bilateral expiratory wheezing and diminished air entry. Nonlabored breathing.. CARDIAC: Normal S1, S2 with no gallops. No murmurs, irregularly irregular rhythm. ABDOMEN: Soft. Bowel sounds normal. No organomegaly. No abdominal bruits. Extremities: Trace pedal edema. No clubbing or cyanosis Neurologically awake, alert, oriented x3 with well-coordinated movements. No focal deficits noted Skin: No rash or skin lesions. Psychiatric: Coperative. Nonsuicidal Musculoskeletal: No joint swelling or deformity. Normal range of motion. - Labs CBC & Chem 7: 04/22/24 06:26 04/22/24 06:26 Labs: Abnormal Lab Results - Last 24 Hours (Table) 04/20/24 04/20/24 04/20/24 Range/Units 03:48 03:48 12:08 RBC 3.21 L (3.80-5.40) m/uL Hgb 10.0 L (11.4-16.0) gm/dL Hct 31.7 L (34.0-46.0) % Lymphocytes # 0.3 L (1.0-4.8) k/uL ABG pCO2 64 H (35-45) mmHg ABG HCO3 35 H (21-25) mmol/L ABG Total CO2 37 H (19-24) mmol/L ABG O2 Saturation 97.9 H (94-97) % Carbon Dioxide 37 H (22-30) mmol/L BUN 24 H (7-17) mg/dL Glucose 153 H (74-99) mg/dL Assessment and Plan Assessment: Acute on chronic hypoxic and hypercapnic respiratory failure requiring BiPAP on admission due to acute COPD exacerbation. Hypercapnic encephalopathy improving Severe COPD and chronic hypoxic respiratory failure on oxygen at 1.5 L via nasal cannula at home Obstructive sleep apnea Moderate pulmonary hypertension Chronic atrial fibrillation with rapid Response History of NSTEMI in January 2024 Hypertension Hyperlipidemia Morbid obesity with BMI 42.9 DVT prophylaxis patient is already on full anticoagulation GI prophylaxis PPI Plan: Patient is in the MICU. Patient was on BiPAP currently titrated down to oxygen via nasal cannula.. Continue with IV Solu-Medrol, DuoNebs and Pulmicort/Perforomist inhalation. Continue with home medication including Eliquis and Lasix. Continue with GI and DVT prophylaxis. Critical care team is on board. Follow-up closely. Time with Patient: Greater than 30
--- NOTE | 2024-04-22 22:06 | P.PN ---
Subjective Progress Note Date: 04/21/24 Patient is a 78-year-old female with a past medical history of COPD on home oxygen at 1.5 L via nasal cannula, chronic atrial fibrillation on anticoagulation with Eliquis, hypertension, secondary pulmonary hypertension, obstructive sleep apnea and history of NSTEMI in January 2024 was brought to the hospital due to altered mental status difficulty arousal and severe shortness of breath. Patient was placed on BiPAP in the ER. ABG showed pH 7.28 pCO2 79 pO2 60. Other laboratory data showed WBC 9.6 hemoglobin 12.5 and platelets 216 Sodium 138 potassium 4.2 chloride 98 bicarb is 38 BUN 23 creatinine 0.91 and blood sugar 133 magnesium 1.5 and total bili 1.7 troponin 0.024, 0.033 and 0.025 and proBNP 1310 And albumin 3.7 Chest x-ray showed no acute cardiopulmonary process. Redemonstrated dilated rig ht pulmonary artery which can be associated with pulmonary hypertension. EKG showed atrial fibrillation with rapid ventricular response with heart rate 119 After approximately 30 minutes on BiPAP she was more arousable and responding to verbal stimuli and is able to open her eyes. 04/20/2024 Patient is in the MICU. Currently sitting on the couch. Awake alert and oriented x 3. Breathing status is slightly improved. Chest x-ray showed no acute pulmonary infiltrates. Otherwise patient remains on IV Solu-Medrol, DuoNebs and Lasix. Also on antibiotics on ceftriaxone azithromycin. Laboratory data showed WBC 5.0 hemoglobin 10.0 and platelets 493 sodium 137 potassium 3.9 chloride 102 bicarb is 37 BUN 24 and creatinine 0.76 and blood sugar 153. ABG showed pH 7.35 pCO2 64 pO2 90 and bicarb 35. Pulmonary is on board. 04/21/2024 Patient is currently sitting in the chair. Awake alert and oriented x 3. Patient states that her breathing status is better today. Off BiPAP. Currently requiring oxygen 3 L via nasal cannula. No cough or sputum production. He has exertional dyspnea. No nausea vomiting abdominal pain or diarrhea. Patient has been afebrile. Laboratory data showed WBC 8.4 hemoglobin 11.6 and platelets 231 sodium 139 potassium 4.5 chloride 103 bicarb is 32 BUN 29 creatinine 0.76 and blood sugar is 176. Calcium 9.9. Pulmonary is on board. Current medications reviewed. Objective - Vital Signs Vital signs: Vital Signs Temp 98.5 F 06/15/24 19:20 Pulse 89 04/21/24 19:20 Resp 16 04/21/24 19:20 BP 140/72 04/21/24 19:20 Pulse Ox 98 04/21/24 19:20 FiO2 40 04/21/24 03:33 Intake & Output 04/21/24 04/21/24 04/22/24 06:59 18:59 06:59 Intake Total 1370 Output Total 550 Balance 820 Intake: Oral 1370 Output: Urine 550 Other: Voiding Method Bedside Commode Bedside Commode External Catheter External Catheter # Voids 1 - Exam PHYSICAL EXAMINATION: Patient is lying in the bed comfortably, no acute distress, awake alert and oriented.. HEENT: Normocephalic. Neck is supple. Pupils reactive. Nostrils clear. Oral cavity is moist. Neck reveals no JVD, carotid bruits, or thyromegaly. CHEST EXAMINATION: Trachea is central. Symmetrical expansion. Bilateral expiratory minimal wheezing and Slow air entry nonlabored breathing.. CARDIAC: Normal S1, S2 with no gallops. No murmurs, irregularly irregular rhythm. ABDOMEN: Soft. Bowel sounds normal. No organomegaly. No abdominal bruits. Extremities: Trace pedal edema. No clubbing or cyanosis Neurologically awake, alert, oriented x3 with well-coordinated movements. No focal deficits noted Skin: No rash or skin lesions. Psychiatric: Coperative. Nonsuicidal Musculoskeletal: No joint swelling or deformity. Normal range of motion. - Labs CBC & Chem 7: 04/22/24 06:26 04/22/24 06:26 Labs: Abnormal Lab Results - Last 24 Hours (Table) 04/21/24 04/21/24 04/21/24 Range/Units 06:29 09:36 09:36 MCHC 30.5 L (31.0-37.0) g/dL Lymphocytes # 0.4 L (1.0-4.8) k/uL Carbon Dioxide 32 H (22-30) mmol/L BUN 29 H (7-17) mg/dL Glucose 176 H (74-99) mg/dL POC Glucose (mg/dL) 150 H (70-110) mg/dL 04/21/24 04/21/24 Range/Units 11:20 16:09 MCHC (31.0-37.0) g/dL Lymphocytes # (1.0-4.8) k/uL Carbon Dioxide (22-30) mmol/L BUN (7-17) mg/dL Glucose (74-99) mg/dL POC Glucose (mg/dL) 219 H 179 H (70-110) mg/dL Assessment and Plan Assessment: Acute on chronic hypoxic and hypercapnic respiratory failure requiring BiPAP on admission due to acute COPD exacerbation. Hypercapnic encephalopathy improving Severe COPD and chronic hypoxic respiratory failure on oxygen at 1.5 L via nasal cannula at home Obstructive sleep apnea Moderate pulmonary hypertension Chronic atrial fibrillation with rapid Response History of NSTEMI in January 2024 Hypertension Hyperlipidemia Morbid obesity with BMI 42.9 DVT prophylaxis patient is already on full anticoagulation GI prophylaxis PPI Plan: Patient was transferred to medical floor. Off BiPAP. Requiring 3 L oxygen via nasal cannula. Continue with IV Solu-Medrol, DuoNebs and Pulmicort/Perforomist inhalation. Continue with home medication including Eliquis and Lasix. Continue with GI and DVT prophylaxis. Critical care team is on board. Follow-up closely.
--- NOTE | 2024-04-22 22:09 | P.PN ---
Subjective Progress Note Date: 04/22/24 Patient is a 78-year-old female with a past medical history of COPD on home oxygen at 1.5 L via nasal cannula, chronic atrial fibrillation on anticoagulation with Eliquis, hypertension, secondary pulmonary hypertension, obstructive sleep apnea and history of NSTEMI in January 2024 was brought to the hospital due to altered mental status difficulty arousal and severe shortness of breath. Patient was placed on BiPAP in the ER. ABG showed pH 7.28 pCO2 79 pO2 60. Other laboratory data showed WBC 9.6 hemoglobin 12.5 and platelets 216 Sodium 138 potassium 4.2 chloride 98 bicarb is 38 BUN 23 creatinine 0.91 and blood sugar 133 magnesium 1.5 and total bili 1.7 troponin 0.024, 0.033 and 0.025 and proBNP 1310 And albumin 3.7 Chest x-ray showed no acute cardiopulmonary process. Redemonstrated dilated rig ht pulmonary artery which can be associated with pulmonary hypertension. EKG showed atrial fibrillation with rapid ventricular response with heart rate 119 After approximately 30 minutes on BiPAP she was more arousable and responding to verbal stimuli and is able to open her eyes. 04/20/2024 Patient is in the MICU. Currently sitting on the couch. Awake alert and oriented x 3. Breathing status is slightly improved. Chest x-ray showed no acute pulmonary infiltrates. Otherwise patient remains on IV Solu-Medrol, DuoNebs and Lasix. Also on antibiotics on ceftriaxone azithromycin. Laboratory data showed WBC 5.0 hemoglobin 10.0 and platelets 493 sodium 137 potassium 3.9 chloride 102 bicarb is 37 BUN 24 and creatinine 0.76 and blood sugar 153. ABG showed pH 7.35 pCO2 64 pO2 90 and bicarb 35. Pulmonary is on board. 04/21/2024 Patient is currently sitting in the chair. Awake alert and oriented x 3. Patient states that her breathing status is better today. Off BiPAP. Currently requiring oxygen 3 L via nasal cannula. No cough or sputum production. He has exertional dyspnea. No nausea vomiting abdominal pain or diarrhea. Patient has been afebrile. Laboratory data showed WBC 8.4 hemoglobin 11.6 and platelets 231 sodium 139 potassium 4.5 chloride 103 bicarb is 32 BUN 29 creatinine 0.76 and blood sugar is 176. Calcium 9.9. Pulmonary is on board. 04/22/2024 Patient is currently sitting in the chair. Awake alert and oriented x 3. No complaints of chest pain or worsening shortness of breath. Patient did use BiPAP last night. Cough and congestion also improving. Requiring 3 L oxygen via nasal cannula. Otherwise patient is being continued on IV Solu-Medrol, DuoNeb, Pulmi delilah/Perforomist. Blood sugar is controlled. Laboratory data showed WBC 1.6 hemoglobin 10.4 and platelets 226 BUN 26 and creatinine 0.8. Blood sugar 133 and calcium 9.6. Current medications reviewed. Objective - Vital Signs Vital signs: Vital Signs Temp 97.9 F 04/22/24 08:00 Pulse 82 04/22/24 09:35 Resp 18 04/22/24 08:00 BP 138/82 04/22/24 08:00 Pulse Ox 97 04/22/24 09:16 FiO2 40 04/22/24 03:35 Intake & Output 04/21/24 04/22/24 04/22/24 18:59 06:59 18:59 Intake Total 1370 120 Output Total 550 Balance 820 120 Intake: Oral 1370 120 Output: Urine 550 Other: Voiding Method Bedside Commode Bedside Commode Bedside Commode External Catheter External Catheter External Catheter # Voids 1 - Exam PHYSICAL EXAMINATION: Patient is lying in the bed comfortably, no acute distress, awake alert and oriented.. HEENT: Normocephalic. Neck is supple. Pupils reactive. Nostrils clear. Oral cavity is moist. Neck reveals no JVD, carotid bruits, or thyromegaly. CHEST EXAMINATION: Trachea is central. Symmetrical expansion. Bilateral expiratory minimal wheezing and Slow air entry nonlabored breathing.. CARDIAC: Normal S1, S2 with no gallops. No murmurs, irregularly irregular rhythm. ABDOMEN: Soft. Bowel sounds normal. No organomegaly. No abdominal bruits. Extremities: Trace pedal edema. No clubbing or cyanosis Neurologically awake, alert, oriented x3 with well-coordinated movements. No focal deficits noted Skin: No rash or skin lesions. Psychiatric: Coperative. Nonsuicidal Musculoskeletal: No joint swelling or deformity. Normal range of motion. - Labs CBC & Chem 7: 04/22/24 06:26 04/22/24 06:26 Labs: Abnormal Lab Results - Last 24 Hours (Table) 04/21/24 04/21/24 04/21/24 Range/Units 11:20 16:09 21:02 RBC (3.80-5.40) m/uL Hgb (11.4-16.0) gm/dL Hct (34.0-46.0) % Lymphocytes # (1.0-4.8) k/uL Carbon Dioxide (22-30) mmol/L BUN (7-17) mg/dL Glucose (74-99) mg/dL POC Glucose (mg/dL) 219 H 179 H 148 H (70-110) mg/dL 04/22/24 04/22/24 04/22/24 Range/Units 05:48 06:26 06:26 RBC 3.35 L (3.80-5.40) m/uL Hgb 10.4 L (11.4-16.0) gm/dL Hct 32.4 L (34.0-46.0) % Lymphocytes # 0.5 L (1.0-4.8) k/uL Carbon Dioxide 38 H (22-30) mmol/L BUN 26 H (7-17) mg/dL Glucose 133 H (74-99) mg/dL POC Glucose (mg/dL) 139 H (70-110) mg/dL Assessment and Plan Assessment: Acute on chronic hypoxic and hypercapnic respiratory failure requiring BiPAP on admission due to acute COPD exacerbation. Hypercapnic encephalopathy improving Severe COPD and chronic hypoxic respiratory failure on oxygen at 1.5 L via nasal cannula at home Obstructive sleep apnea Moderate pulmonary hypertension Chronic atrial fibrillation with rapid Response History of NSTEMI in January 2024 Hypertension Hyperlipidemia Morbid obesity with BMI 42.9 DVT prophylaxis patient is already on full anticoagulation GI prophylaxis PPI CODE STATUS is full. Patient wants CPR but not intubation. Plan: Patient was transferred to medical floor. Patient is utilizing BiPAP in the night. Requiring 3 L oxygen via nasal cannula. Continue with IV Solu-Medrol, DuoNebs and Pulmicort/Perforomist inhalation. Continue with Mucinex for cough Continue with home medication including Eliquis and Lasix. Continue with GI and DVT prophylaxis. Critical care team is on board. Follow-up closely. Time with Patient: Greater than 30
[2024-04-23] MEDS: IPRATROPIUM-ALBUTEROL 3 ML NEB INHALATION PRN (03:17)
[2024-04-23 07:08] LABS: Glucose,Whole Blood 148 mg/dL (70-110)
[2024-04-23 08:17] LABS: Basophils % (A) 0 %; Eosinophils % (A) 0 %; HCT 35.6 % (34.0-46.0); HGB 10.9 gm/dL (11.4-16.0); Hypochromasia Slight; Lymphocytes # (A) 0.5 k/uL (1.0-4.8); Lymphocytes % (A) 6 %; MCHC 30.5 g/dL (31.0-37.0); MCV 98.2 fL (80.0-100.0); Mean Platelet Volume 7.6; Monocytes # (A) 0.4 k/uL (0-1.0); Monocytes % (A) 4 %; Neutrophils # (A) 7.6 k/uL (1.3-7.7); Neutrophils % (A) 89 %; Platelet Count 243 k/uL (150-450); RBC 3.63 m/uL (3.80-5.40); RDW 14.6 % (11.5-15.5); WBC 8.6 k/uL (3.8-10.6)
[2024-04-23 08:30] LABS: African American GFR (CKD) 78 (>60 ml/min/1.73 sqM); Blood Urea Nitrogen 30 mg/dL (7-17); Calcium 9.8 mg/dL (8.4-10.2); Chloride 98 mmol/L (98-107); Glucose 140 mg/dL (74-99); Non-African American GFR(CKD) 68 (>60 ml/min/1.73 sqM); Potassium 4.1 mmol/L (3.5-5.1); Sodium 137 mmol/L (137-145)
[2024-04-23 08:38] LABS: Anion Gap 3 mmol/L; Carbon Dioxide 36 mmol/L (22-30)
[2024-04-23] MEDS: predniSONE 20 MG TAB PO SCH (09:41)
[2024-04-23 12:08] LABS: Glucose,Whole Blood 138 mg/dL (70-110)
--- NOTE | 2024-04-23 14:04 | P.PN ---
Subjective Progress Note Date: 04/23/24 Patient is a 78-year-old white female with past medical history significant for severe COPD, chronic hypoxemic and hypercapnic respiratory failure on 1.5 L nasal cannula while at home, and obstructive sleep apnea. She follows in the pulmonary office with Dr. Welch. She has had a recent hospitalization last month with similar presentation. She presented the emergency room late last night, she was noted to be short of breath and difficult to arouse. On my evaluation the patient is still in the emergency department, trauma bay 2. Initially, difficult to arouse with painful stimuli. She was on BiPAP with settings 12/6 and FiO2 of 60%. She is only achieving tidal volumes of around 200 and her respiratory rate is in the mid 20s. Her IPAP was increased to 18 and FiO2 was dropped to 35%. After approximately 30 minutes the patient has started to more more arousable to verbal stimuli and will open her eyes. She remains disoriented. Follow-up ABG pH of 7.28, pCO2 of 79, pO2 of 60. Chest x-ray does not reveal any acute cardiopulmonary process, no acute infiltrates or evidence of pneumonia. There is a prominent right pulmonary artery. CBC unremarkable. No leukocytosis. No fevers. BMP also unremarkable except for hypercarbia. Troponin 0.024 and 0.033 respectively. NT proBNP 1310. EKG shows atrial fibrillation with a rate of 109 bpm. No acute ischemic changes noted. Patient is known to have chronic atrial fibrillation, anticoagulated on Eliquis, also hyperlipidemia, hypertension. Note that the patient was previously listed as a DO NOT RESUSCITATE on previous hospital admissions. Currently listed as a full code, this will to be clarified with family. On today's evaluation of 04/20/2024, the patient is feeling well. With a pH of 7.35 with a pCO2 of 64 and pO2 of 90. No signs of any CO2 narcosis at this point in time. No chest pain. She reports improvement in her breathing status. Chest x-ray shows no acute pulm abnormalities. She remains on bronchodilators. She remains on steroids. She remains on oral Lasix. She remains on a combination of Rocephin and Zithromax. The white cell count is 5 with a hemoglobin of 10 and platelet count of 193. BUN is 24 with a creatinine 0.7 and sodium is at 137. Free of any chest pain. She remains in atrial fibrillation. 04/21/2024, patient is being seen for a follow-up. The patient is feeling better compared to yesterday. She is less bronchospastic and wheezy. She is currently off the BiPAP. She is currently on oxygen at 3 L with a pulse ox of 99%. She has a cough and a minimal amount of sputum production. The white cell count is at 8.4 with hemoglobin 11.6 and a platelet count of 231. Electrolytes are all within normal limits. BUN is 29 with a creatinine of 0.7. No other significant events overnight. The patient remains on IV Rocephin. The patient remains on IV fluids at KVO. No chest pain. No altered mentation. 04/22/2024, the patient is being seen for a follow-up. Less bronchospastic and wheezy on today's evaluation. No new complaints. Utilizing the BiPAP overnight. Patient's cough and congestion is improved as the patient is also utilizing Mucinex DM. Remains on IV Solu-Medrol 60 mg every 6 hours. The white cell count is at 7.6 with a hemoglobin 10.4, electrolytes are stable with a BUN of 26 and a creatinine of 0.82. No signs of any respiratory distress. No altered mentation. The patient is seen today April 23, 2024 in follow-up on the regular medical floor. She is currently resting in bed. On BiPAP 18/6 and 40% FiO2 alternating with 3 L/min per nasal cannula. She is doing better today compared to yesterday. Not quite back to her baseline. She is continued on DuoNeb inhalations, Pulmicort and Perforomist inhalations, Solu-Medrol. Anticoagulated with Eliquis. White count 8.6. Hemoglobin 10.9. Platelets 243. Sodium 137. Potassium 4.1. Bicarb 36. BUN 30. Creatinine 0.83. Glucose 140. Objective - Vital Signs Vital signs: Vital Signs Temp 97.4 F L 04/23/24 07:08 Pulse 76 04/23/24 11:51 Resp 17 04/23/24 07:08 BP 144/78 04/23/24 07:08 Pulse Ox 97 04/23/24 08:06 FiO2 40 04/23/24 03:15 Intake & Output 04/22/24 04/23/24 04/23/24 18:59 06:59 18:59 Intake Total 120 240 Output Total 300 Balance 120 -60 Intake: IV 120 Sodium Chloride 0.9% 1, 120 000 ml @ 10 mls/hr IV . Q24H [facility] Rx#:[id number] Oral 120 120 Output: Urine 300 Other: Voiding Method Bedside Commode Bedside Commode Bedside Commode External Catheter External Catheter External Catheter # Voids 2 1 # Bowel Movements 1 - Exam GENERAL EXAM: Alert, obese 78-year-old female, on BiPAP 18/6 and 40% FiO2, fairly comfortable in no apparent distress. HEAD: Normocephalic. EYES: Normal reaction of pupils, equal size. NOSE: Clear with pink turbinates. THROAT: No erythema or exudates. NECK: No masses, no JVD. CHEST: No chest wall deformity. LUNGS: Equal air entry with bilateral end expiratory wheeze, diminished. CVS: S1 and S2 normal with no audible murmur, regular rhythm. ABDOMEN: No hepatosplenomegaly, normal bowel sounds, no guarding or rigidity. SPINE: No scoliosis or deformity SKIN: No rashes CENTRAL NERVOUS SYSTEM: No focal deficits, tone is normal in all 4 extremities. EXTREMITIES: There is no peripheral edema. No clubbing, no cyanosis. Peripheral pulses are intact. - Labs CBC & Chem 7: 04/23/24 06:50 04/23/24 06:50 Labs: Abnormal Lab Results - Last 24 Hours (Table) 04/22/24 04/22/24 04/23/24 Range/Units 16:27 20:44 06:50 RBC 3.63 L (3.80-5.40) m/uL Hgb 10.9 L (11.4-16.0) gm/dL MCHC 30.5 L (31.0-37.0) g/dL Lymphocytes # 0.5 L (1.0-4.8) k/uL Carbon Dioxide (22-30) mmol/L BUN (7-17) mg/dL Glucose (74-99) mg/dL POC Glucose (mg/dL) 176 H 184 H (70-110) mg/dL 04/23/24 04/23/24 04/23/24 Range/Units 06:50 07:06 12:07 RBC (3.80-5.40) m/uL Hgb (11.4-16.0) gm/dL MCHC (31.0-37.0) g/dL Lymphocytes # (1.0-4.8) k/uL Carbon Dioxide 36 H (22-30) mmol/L BUN 30 H (7-17) mg/dL Glucose 140 H (74-99) mg/dL POC Glucose (mg/dL) 148 H 138 H (70-110) mg/dL Assessment and Plan Assessment: Acute on chronic hypoxemic and hypercapnic respiratory failure, secondary to acute COPD exacerbation. Chest x-ray does not show any acute cardiopulmonary process, no focal infiltrates or evidence of pneumonia. There is a prominent ri ght pulmonary artery. Clinically improving and the patient's blood gas showed improvement in acid-base status. The patient is currently on BiPAP and alternating with oxygen at 3 L by nasal cannula Acute on top of chronic hypercapnic encephalopathy, improving without any signs of any CO2 narcosis Severe chronic obstructive pulmonary disease Chronic hypoxemic respiratory failure, secondary to above, normally on 1.5 L/min nasal cannula while at home History of obstructive sleep apnea History of heart failure, with borderline mildly impaired left ventricular ejection fraction of 45 to 50% History of pulmonary hypertension Chronic atrial fibrillation, anticoagulated on Eliquis History of hyperlipidemia History of hypertension Plan: The patient was seen and evaluated Labs and medications reviewed Discontinue Solu-Medrol Initiated prednisone taper Continue bronchodilators Titrate down the FiO2 as tolerated Probable discharge in the a.m. Plan is for home with home care We will continue to follow I have personally seen and examined the patient, performed the documentation and the assessment and plan as written. Number of minutes spent on the visit: 10.
[2024-04-23 17:17] LABS: Glucose,Whole Blood 159 mg/dL (70-110)
[2024-04-23 20:17] LABS: Glucose,Whole Blood 175 mg/dL (70-110)
--- NOTE | 2024-04-23 20:41 | P.PN ---
Subjective Progress Note Date: 04/23/24 Patient is a 78-year-old female with a past medical history of COPD on home oxygen at 1.5 L via nasal cannula, chronic atrial fibrillation on anticoagulation with Eliquis, hypertension, secondary pulmonary hypertension, obstructive sleep apnea and history of NSTEMI in January 2024 was brought to the hospital due to altered mental status difficulty arousal and severe shortness of breath. Patient was placed on BiPAP in the ER. ABG showed pH 7.28 pCO2 79 pO2 60. Other laboratory data showed WBC 9.6 hemoglobin 12.5 and platelets 216 Sodium 138 potassium 4.2 chloride 98 bicarb is 38 BUN 23 creatinine 0.91 and blood sugar 133 magnesium 1.5 and total bili 1.7 troponin 0.024, 0.033 and 0.025 and proBNP 1310 And albumin 3.7 Chest x-ray showed no acute cardiopulmonary process. Redemonstrated dilated right pulmonary artery which can be associated with pulmonary hypertension. EKG showed atrial fibrillation with rapid ventricular response with heart rate 119 After approximately 30 minutes on BiPAP she was more arousable and responding to verbal stimuli and is able to open her eyes. 04/20/2024 Patient is in the MICU. Currently sitting on the couch. Awake alert and oriented x 3. Breathing status is slightly improved. Chest x-ray showed no acute pulmonary infiltrates. Otherwise patient remains on IV Solu-Medrol, DuoNebs and Lasix. Also on antibiotics on ceftriaxone azithromycin. Laboratory data showed WBC 5.0 hemoglobin 10.0 and platelets 493 sodium 137 potassium 3.9 chloride 102 bicarb is 37 BUN 24 and creatinine 0.76 and blood sugar 153. ABG showed pH 7.35 pCO2 64 pO2 90 and bicarb 35. Pulmonary is on board. 04/21/2024 Patient is currently sitting in the chair. Awake alert and oriented x 3. Patient states that her breathing status is better today. Off BiPAP. Currently requiring oxygen 3 L via nasal cannula. No cough or sputum production. He has exertional dyspnea. No nausea vomiting abdominal pain or diarrhea. Patient has been afebrile. Laboratory data showed WBC 8.4 hemoglobin 11.6 and platelets 231 sodium 139 potassium 4.5 chloride 103 bicarb is 32 BUN 29 creatinine 0.76 and blood sugar is 176. Calcium 9.9. Pulmonary is on board. 04/22/2024 Patient is currently sitting in the chair. Awake alert and oriented x 3. No complaints of chest pain or worsening shortness of breath. Patient did use BiPAP last night. Cough and congestion also improving. Requiring 3 L oxygen via nasal cannula. Otherwise patient is being continued on IV Solu-Medrol, DuoNeb, Pulmico rt/Perforomist. Blood sugar is controlled. Laboratory data showed WBC 1.6 hemoglobin 10.4 and platelets 226 BUN 26 and creatinine 0.8. Blood sugar 133 and calcium 9.6. 04/23/2024 Patient evaluated in follow up today. Sitting up in the chair with family at the bedside. Having some scattered wheezing and ronchi today. Continues to use the BiPAP at HS. Patient continues on IV solumedrol, duonebs, pulmicort and perforomist. Pulmonary following. Repeat blood work today 8.6, hgb 10.9, sodium 137, potassium 4.1, BUN 30, creatinine 0.83. Patient feels she is not quite ready for discharge home. Review of Systems Constitutional: Denied any fatigue denied any fever. Cardio vascular: denied any chest pain, palpitations Gastrointestinal: denied any nausea, vomiting, diarrhea Pulmonary: Denied any shortness of breath cough Neurologic denied any new focal deficits All inpatient medications were reviewed and appropriate changes in these medications as dictated in the interval history and assessment and plan PHYSICAL EXAMINATION: GENERAL: The patient is alert and oriented x3, not in any acute distress. Well developed, well nourished. HEENT: Pupils are round and equally reacting to light. EOMI. No scleral icterus. No conjunctival pallor. Normocephalic, atraumatic. No pharyngeal erythema. No thyromegaly. CARDIOVASCULAR: S1 and S2 present. No murmurs, rubs, or gallops. PULMONARY: Scattered wheezing ABDOMEN: Soft, nontender, nondistended, normoactive bowel sounds. No palpable organomegaly. MUSCULOSKELETAL: No joint swelling or deformity. EXTREMITIES: No cyanosis, clubbing, or pedal edema. NEUROLOGICAL: Gross neurological examination did not reveal any focal deficits. Diffuse weakness. SKIN: No rashes. Assessment Acute on chronic hypoxic and hypercapnic respiratory failure requiring BiPAP on admission due to acute COPD exacerbation. Hypercapnic encephalopathy improving Severe COPD and chronic hypoxic respiratory failure on oxygen at 1.5 L via nasal cannula at home Obstructive sleep apnea Moderate pulmonary hypertension Chronic atrial fibrillation with rapid Response History of NSTEMI in January 2024 Hypertension Hyperlipidemia Morbid obesity with BMI 42.9 DVT prophylaxis patient is already on full anticoagulation GI prophylaxis PPI CODE STATUS is full. Patient wants CPR but not intubation. Plan: Patient is utilizing BiPAP in the night. Requiring 3 L oxygen via nasal cannula. Continue with DuoNebs and Pulmicort/Perforomist inhalation. Patient has been transitioned to oral prednisone. Continue with Mucinex for cough Continue with home medication including Eliquis and Lasix. Discharge home with homecare in the next 24 hours. The impression and plan of care has been dictated by Domenica Moyer, Nurse Practitioner as directed. Dr. Morteza MD I have performed a history and physical examination and medical decision making of this patient, discussed the same with the dictator, and agree with the dictators assessment and plan as written, documented as a scribe. Based on total visit time, I have performed more than 50% of this visit. Objective - Vital Signs Vital signs: Vital Signs Temp 97.8 F 04/23/24 13:05 Pulse 88 04/23/24 13:05 Resp 16 04/23/24 13:05 BP 148/81 04/23/24 13:05 Pulse Ox 98 04/23/24 13:05 FiO2 40 04/23/24 03:15 Intake & Output 04/22/24 04/23/24 04/23/24 18:59 06:59 18:59 Intake Total 120 240 Output Total 300 Balance 120 -60 Intake: IV 120 Sodium Chloride 0.9% 1, 120 000 ml @ 10 mls/hr IV . Q24H [facility] Rx#:[id number] Oral 120 120 Output: Urine 300 Other: Voiding Method Bedside Commode Bedside Commode Bedside Commode External Catheter External Catheter External Catheter # Voids 2 1 # Bowel Movements 1 - Labs CBC & Chem 7: 04/23/24 06:50 04/23/24 06:50 Labs: Abnormal Lab Results - Last 24 Hours (Table) 04/22/24 04/22/24 04/23/24 Range/Units 16:27 20:44 06:50 RBC 3.63 L (3.80-5.40) m/uL Hgb 10.9 L (11.4-16.0) gm/dL MCHC 30.5 L (31.0-37.0) g/dL Lymphocytes # 0.5 L (1.0-4.8) k/uL Carbon Dioxide (22-30) mmol/L BUN (7-17) mg/dL Glucose (74-99) mg/dL POC Glucose (mg/dL) 176 H 184 H (70-110) mg/dL 04/23/24 04/23/24 04/23/24 Range/Units 06:50 07:06 12:07 RBC (3.80-5.40) m/uL Hgb (11.4-16.0) gm/dL MCHC (31.0-37.0) g/dL Lymphocytes # (1.0-4.8) k/uL Carbon Dioxide 36 H (22-30) mmol/L BUN 30 H (7-17) mg/dL Glucose 140 H (74-99) mg/dL POC Glucose (mg/dL) 148 H 138 H (70-110) mg/dL Assessment and Plan Time with Patient: Less than 30
[2024-04-24 07:06] LABS: Glucose,Whole Blood 133 mg/dL (70-110)
[2024-04-24 11:56] LABS: Glucose,Whole Blood 106 mg/dL (70-110)
[2024-04-24 12:57] VITALS: BP 141/69; PULSE 67; RESP 18; TEMP 97.9
--- NOTE | 2024-04-24 13:00 | P.PN ---
Subjective Progress Note Date: 04/24/24 Patient is a 78-year-old white female with past medical history significant for severe COPD, chronic hypoxemic and hypercapnic respiratory failure on 1.5 L nasal cannula while at home, and obstructive sleep apnea. She follows in the pulmonary office with Dr. Welch. She has had a recent hospitalization last month with similar presentation. She presented the emergency room late last night, she was noted to be short of breath and difficult to arouse. On my evaluation the patient is still in the emergency department, trauma bay 2. Initially, difficult to arouse with painful stimuli. She was on BiPAP with settings 12/6 and FiO2 of 60%. She is only achieving tidal volumes of around 200 and her respiratory rate is in the mid 20s. Her IPAP was increased to 18 and FiO2 was dropped to 35%. After approximately 30 minutes the patient has started to more more arousable to verbal stimuli and will open her eyes. She remains disoriented. Follow-up ABG pH of 7.28, pCO2 of 79, pO2 of 60. Chest x-ray does not reveal any acute cardiopulmonary process, no acute infiltrates or evidence of pneumonia. There is a prominent right pulmonary artery. CBC unremarkable. No leukocytosis. No fevers. BMP also unremarkable except for hypercarbia. Troponin 0.024 and 0.033 respectively. NT proBNP 1310. EKG shows atrial fibrillation with a rate of 109 bpm. No acute ischemic changes noted. Patient is known to have chronic atrial fibrillation, anticoagulated on Eliquis, also hyperlipidemia, hypertension. Note that the patient was previously listed as a DO NOT RESUSCITATE on previous hospital admissions. Currently listed as a full code, this will to be clarified with family. On today's evaluation of 04/20/2024, the patient is feeling well. With a pH of 7.35 with a pCO2 of 64 and pO2 of 90. No signs of any CO2 narcosis at this point in time. No chest pain. She reports improvement in her breathing status. Chest x-ray shows no acute pulm abnormalities. She remains on bronchodilators. She remains on steroids. She remains on oral Lasix. She remains on a combination of Rocephin and Zithromax. The white cell count is 5 with a hemoglobin of 10 and platelet count of 193. BUN is 24 with a creatinine 0.7 and sodium is at 137. Free of any chest pain. She remains in atrial fibrillation. 04/21/2024, patient is being seen for a follow-up. The patient is feeling better compared to yesterday. She is less bronchospastic and wheezy. She is currently off the BiPAP. She is currently on oxygen at 3 L with a pulse ox of 99%. She has a cough and a minimal amount of sputum production. The white cell count is at 8.4 with hemoglobin 11.6 and a platelet count of 231. Electrolytes are all within normal limits. BUN is 29 with a creatinine of 0.7. No other significant events overnight. The patient remains on IV Rocephin. The patient remains on IV fluids at KVO. No chest pain. No altered mentation. 04/22/2024, the patient is being seen for a follow-up. Less bronchospastic and wheezy on today's evaluation. No new complaints. Utilizing the BiPAP overnight. Patient's cough and congestion is improved as the patient is also utilizing Mucinex DM. Remains on IV Solu-Medrol 60 mg every 6 hours. The white cell count is at 7.6 with a hemoglobin 10.4, electrolytes are stable with a BUN of 26 and a creatinine of 0.82. No signs of any respiratory distress. No altered mentation. The patient is seen today April 23, 2024 in follow-up on the regular medical floor. She is currently resting in bed. On BiPAP 18/6 and 40% FiO2 alternating with 3 L/min per nasal cannula. She is doing better today compared to yesterday. Not quite back to her baseline. She is continued on DuoNeb inhalations, Pulmicort and Perforomist inhalations, Solu-Medrol. Anticoagulated with Eliquis. White count 8.6. Hemoglobin 10.9. Platelets 243. Sodium 137. Potassium 4.1. Bicarb 36. BUN 30. Creatinine 0.83. Glucose 140. The patient is seen today April 24, 2024 in follow-up on the regular medical floor. She is awake and alert in no acute distress. Continues to alternate BiPAP 18/6 and 40% FiO2 with 3 L/min per nasal cannula. She is improved and feeling back to her baseline. She is continued on DuoNeb inhalations, Pulmicort and Perforomist inhalations, prednisone taper. She remains on ceftriaxone. Anticoagulated with Eliquis. Continued on oral diuretics. Glucose 133. Objective - Vital Signs Vital signs: Vital Signs Temp 97.5 F L 04/24/24 07:04 Pulse 77 04/24/24 11:57 Resp 20 04/24/24 07:04 BP 123/67 04/24/24 07:04 Pulse Ox 96 04/24/24 08:30 FiO2 40 04/24/24 03:37 Intake & Output 04/23/24 04/24/24 04/24/24 18:59 06:59 18:59 Intake Total 1620 Output Total 600 400 Balance 1020 -400 Intake: Oral 1620 Output: Urine 600 400 Other: Voiding Method Bedside Commode Bedside Commode External Catheter External Catheter # Voids 1 # Bowel Movements 1 - Exam GENERAL EXAM: Alert, obese 78-year-old female, on 3 L/min per nasal cannula, in no apparent distress. HEAD: Normocephalic. EYES: Normal reaction of pupils, equal size. NOSE: Clear with pink turbinates. THROAT: No erythema or exudates. NECK: No masses, no JVD. CHEST: No chest wall deformity. LUNGS: Equal air entry with bilateral end expiratory wheeze, diminished. CVS: S1 and S2 normal with no audible murmur, regular rhythm. ABDOMEN: No hepatosplenomegaly, normal bowel sounds, no guarding or rigidity. SPINE: No scoliosis or deformity SKIN: No rashes CENTRAL NERVOUS SYSTEM: No focal deficits, tone is normal in all 4 extremities. EXTREMITIES: There is no peripheral edema. No clubbing, no cyanosis. Peripheral pulses are intact. - Labs CBC & Chem 7: 04/23/24 06:50 04/23/24 06:50 Labs: Abnormal Lab Results - Last 24 Hours (Table) 04/23/24 04/23/24 04/24/24 Range/Units 17:15 20:15 07:05 POC Glucose (mg/dL) 159 H 175 H 133 H (70-110) mg/dL Assessment and Plan Assessment: Acute on chronic hypoxemic and hypercapnic respiratory failure, secondary to acute COPD exacerbation. Chest x-ray does not show any acute cardiopulmonary process, no focal infiltrates or evidence of pneumonia. There is a prominent right pulmonary artery. Clinically improving and the patient's blood gas showed improvement in acid-base status. The patient is currently on BiPAP and alternating with oxygen at 3 L by nasal cannula Acute on top of chronic hypercapnic encephalopathy, improving without any signs of any CO2 narcosis Severe chronic obstructive pulmonary disease Chronic hypoxemic respiratory failure, secondary to above, normally on 1.5 L/min nasal cannula while at home History of obstructive sleep apnea History of heart failure, with borderline mildly impaired left ventricular ejection fraction of 45 to 50% History of pulmonary hypertension Chronic atrial fibrillation, anticoagulated on Eliquis History of hyperlipidemia History of hypertension Plan: The patient was seen and evaluated Labs and medications reviewed Cleared for discharge from the pulmonary standpoint Completed a course of antibiotics Continue on a prednisone taper Continue her home pulmonary medications, oxygen Follow-up in our office in 1 week I have personally seen and examined the patient, performed the documentation and the assessment and plan as written. Number of minutes spent on the visit: 10.
--- NOTE | 2024-04-25 16:01 | P.DS ---
Providers Date of admission: 04/18/24 22:27 Attending physician: Adrienne Larios Consults: 04/18/24 22:29 Consult Physician Routine Consulting Provider: Sixto Welch Consult Reason/Comments: copd Do you want consulting provider notified?: Yes Primary care physician: Kimberly Molina Hospital Course: Final Diagnosis Acute on chronic hypoxic and hypercapnic respiratory failure requiring BiPAP on admission due to acute COPD exacerbation. Hypercapnic encephalopathy improving Severe COPD and chronic hypoxic respiratory failure on oxygen at 1.5 L via nasal cannula at home Obstructive sleep apnea Moderate pulmonary hypertension Chronic atrial fibrillation with rapid Response History of NSTEMI in January 2024 Hypertension Hyperlipidemia Morbid obesity with BMI 42.9 Discharge Disposition Patient is stable for discharge home with overall guarded prognosis secondary to severe oxygen dependent COPD and patient's refusal of discharging to subacute rehabilitation as recommended. Will discharge on an oral prednisone taper and will not require any further antibiotic therapy on discharge she completed a course of oral azithromycin and IV ceftriaxone while inpatient. Patient was also sent in nystatin powder to apply to her groin and abdominal skin folds twice a day for the next 7 days. Patient to follow-up with her primary dependency director Dr. Sotomayor in the office and has an appointment scheduled for May 07 at 10:30 AM. Patient to follow-up with her PCP Dr. Molina and has an appointment scheduled for April 26 at 11:20 AM. Hospital Course Patient is a 78-year-old female with a past medical history of COPD on home oxygen at 1.5 L via nasal cannula, chronic atrial fibrillation on anticoagulation with Eliquis, hypertension, secondary pulmonary hypertension, obstructive sleep apnea and history of NSTEMI in January 2024 was brought to the hospital due to altered mental status difficulty arousal and severe shortness of breath. Patient was placed on BiPAP in the ER. ABG showed pH 7.28 pCO2 79 pO2 60. Other laboratory data showed WBC 9.6 hemoglobin 12.5 and platelets 216. Sodium 138 potassium 4.2 chloride 98 bicarb is 38 BUN 23 creatinine 0.91 and blood sugar 133 magnesium 1.5 and total bili 1.7 troponin 0.024, 0.033 and 0.025 and proBNP 1310 And albumin 3.7. Chest x-ray showed no acute cardiopulmonary process. Redemonstrated dilated right pulmonary artery which can be associated with pulmonary hypertension. EKG showed atrial fibrillation with rapid ventricular response with heart rate 119 After approximately 30 minutes on BiPAP she was more arousable and responding to verbal stimuli and is able to open her eyes. She was admitted to the hospital with a pulmonary consultation secondary to a severe COPD exacerbation. Patient was continued on BiPAP while in the hospital. She was started on IV Solu-Medrol DuoNebs and additionally Lasix. Patient was given antibiotic therapy with IV ceftriaxone and oral azithromycin. Patient has not been having any sputum production. Patient was able to be weaned back to nasal cannula and tolerating she is reporting improvement in her shortness of breath and she is more awake alert and oriented. Her blood work is stable showing a white count of 8.6, hemoglobin 10.9, sodium level 137, potassium 4.1, BUN of 30, creatinine of 0.83 her blood glucose has been controlled. Patient's lungs are clear her S1-S2 auscultated abdomen is soft and nontender she is not reporting any nausea or abdominal pain she is having bowel movements and tolerating diet. Patient was seen by physical therapy and recommended for discharge to subacute rehab however patient has refused at this time and is wanting to discharge home with home care services. She is a high risk for readmission secondary to significant weakness and recent admissions for COPD exacerbation. We discussed the risk versus benefit of discharging to rehab and at this time patient will be going home. Patient requires close follow-up with pulmonary services. Please see medication reconciliation for a list of current medications. Thank you for allowing us to participate in the care of this patient. The impression and plan of care has been dictated by Domenica Moyer Nurse Practitioner as directed. Dr. Morteza MD I have performed a history and physical examination and medical decision making of this patient, discussed the same with the dictator, and agree with the dictators assessment and plan as written, documented as a scribe. Based on total visit time, I have performed more than 50% of this visit. Patient Condition at Discharge: Stable Plan - Discharge Summary New Discharge Prescriptions: New Nystatin 100,000 Unit/gm Powd [Mycostatin Powder] 1 applic TOPICAL BID 7 Days #1 each predniSONE 10 mg PO DIRECTED 9 Days #22 tab Continue Atorvastatin [Lipitor] 40 mg PO DAILY Apixaban [Eliquis] 2.5 mg PO DAILY Furosemide [Lasix] 20 mg PO DAILY Potassium Chloride 10 meq PO BID Ipratropium-Albuterol Nebulize [Duoneb 0.5 mg-3 mg/3 ml Soln] 3 ml INHALATION RT-QID Ipratropium-Albuterol Nebulize [Duoneb 0.5 mg-3 mg/3 ml Soln] 3 ml INHALATION RT-TID PRN PRN Reason: Shortness Of Breath Budesonide-Formot 160-4.5 Mcg [Symbicort 160-4.5 Mcg Inhaler] 2 puff INHALATION RT-BID 30 Days #1 each Losartan [Cozaar] 25 mg PO DAILY ALPRAZolam [Xanax] 0.125 - 0.25 mg PO DAILY PRN PRN Reason: Anxiety Discharge Medication List Apixaban [Eliquis] 2.5 mg PO DAILY 03/18/24 [History] Atorvastatin [Lipitor] 40 mg PO DAILY 03/18/24 [History] Budesonide-Formot 160-4.5 Mcg [Symbicort 160-4.5 Mcg Inhaler] 2 puff INHALATION RT-BID 30 Days #1 each 03/23/24 [Rx] ALPRAZolam [Xanax] 0.125 - 0.25 mg PO DAILY PRN 04/18/24 [History] Furosemide [Lasix] 20 mg PO DAILY 04/18/24 [History] Ipratropium-Albuterol Nebulize [Duoneb 0.5 mg-3 mg/3 ml Soln] 3 ml INHALATION RT-QID 04/18/24 [History] Ipratropium-Albuterol Nebulize [Duoneb 0.5 mg-3 mg/3 ml Soln] 3 ml INHALATION RT-TID PRN 04/18/24 [History] Losartan [Cozaar] 25 mg PO DAILY 04/18/24 [History] Potassium Chloride 10 meq PO BID 04/18/24 [History] Nystatin 100,000 Unit/gm Powd [Mycostatin Powder] 1 applic TOPICAL BID 7 Days #1 each 04/24/24 [Rx] predniSONE 10 mg PO DIRECTED 9 Days #22 tab 04/24/24 [Rx] Follow up Appointment(s)/Referral(s): Sixto Welch MD [STAFF PHYSICIAN] - 05/07/24 10:30 am [facility], [NON-STAFF] - 1-2 Days (home care will call to set up appointment any nasir wheeler call gaurav) Kimberly Molina MD [Primary Care Provider] - 04/26/24 11:20 am Ambulatory/Diagnostic Orders: Basic Metabolic Panel [LAB.AMB] Time Frame: 3 Days, Location: None Selected Complete Blood Count w/diff [LAB.AMB] Location: None Selected Patient Instructions/Handouts: Prednisone (By mouth), Nystatin (On the skin), Hypoxia (GEN), Acute Respiratory Failure (GEN) Discharge Disposition: HOME WITH HOME HEALTH SERVICES
== END 2024-04-24 13:45 | disposition home health service (06) | DRG 189 ==
LOC: EC 19:33 → 3SCARD 22:27 → 2SICU 04-19 05:49 → 3SCARD 04-20 17:39 → 5NMEDONC 04-23 00:25 → 3SCARD 04-23 00:40 → 5NMEDONC 04-23 01:29
PROVIDERS: ADMIT Hospitalist; ATTEND Hospitalist
PROC: 5A09357 Assistance with Respiratory Ventilation, Less than 24 Consecutive Hours, Continuous Positive Airway Pressure (ICD-10-PCS; principal; 2024-04-18)
DX: J96.22 Acute and chronic respiratory failure with hypercapnia (principal); J44.1 Chronic obstructive pulmonary disease with (acute) exacerbation; I48.20 Chronic atrial fibrillation, unspecified; Z68.41 Body mass index [BMI] 40.0-44.9, adult; G93.49 Other encephalopathy; J96.21 Acute and chronic respiratory failure with hypoxia; F41.9 Anxiety disorder, unspecified; I27.20 Pulmonary hypertension, unspecified; G47.33 Obstructive sleep apnea (adult) (pediatric); E78.5 Hyperlipidemia, unspecified; E66.01 Morbid (severe) obesity due to excess calories; I11.0 Hypertensive heart disease with heart failure; I50.9 Heart failure, unspecified; Z28.310 Unvaccinated for COVID-19; I25.2 Old myocardial infarction; Z99.81 Dependence on supplemental oxygen; Z79.899 Other long term (current) drug therapy; Z79.51 Long term (current) use of inhaled steroids; Z79.01 Long term (current) use of anticoagulants
CPT/HCPCS: 36415; 36600; 71045; 80048; 80053; 82805; 83735; 83880; 84100; 84484; 85025; 85610; 85730; 93005; 94640; 94660; 94760; 96361; 96365; 96366; 96367; 96375; 99291

== ENCOUNTER 2024-07-01 12:41 | Inpatient (IN) | payer MEDICARE, OTHER ==
[2024-07-01] MEDS: IPRATROPIUM-ALBUTEROL 3 ML NEB INHALATION STA (13:04)
[2024-07-01] MEDS: ONDANSETRON 4 MG/2 ML VIAL IVP STA (13:04)
[2024-07-01] MEDS: MAGNESIUM SULFATE-D5W PMX 1 GM in DEXTROSE/WATER 1 100ML.BAG IVPB ONE (13:04)
[2024-07-01] MEDS: methylPREDNISolone SOD SUCCI 125 MG/2 ML VIAL IV STA (13:04)
[2024-07-01] MEDS: SODIUM CHLORIDE 0.9% 1,000 ML IV STA (13:08)
[2024-07-01 13:16] LABS: Basophils # (A) 0.1 k/uL (0-0.2); Basophils % (A) 1 %; Eosinophils # (A) 0.1 k/uL (0-0.7); Eosinophils % (A) 1 %; HCT 42.7 % (34.0-46.0); HGB 12.9 gm/dL (11.4-16.0); Hypochromasia Marked; Lymphocytes % (A) 10 %; MCH 30.7 pg (25.0-35.0); MCHC 30.1 g/dL (31.0-37.0); MCV 102.1 fL (80.0-100.0); Macrocytosis Slight; Mean Platelet Volume 7.3; Monocytes # (A) 1.1 k/uL (0-1.0); Monocytes % (A) 5 %; Neutrophils # (A) 17.8 k/uL (1.3-7.7); Neutrophils % (A) 83 %; Platelet Count 436 k/uL (150-450); RBC 4.18 m/uL (3.80-5.40); WBC 21.5 k/uL (3.8-10.6)
[2024-07-01 13:21] LABS: ALT 12 U/L (4-34); AST 22 U/L (14-36); African American GFR (CKD) 54 (>60 ml/min/1.73 sqM); Albumin 3.8 g/dL (3.5-5.0); Alkaline Phosphatase 109 U/L (38-126); Anion Gap 5 mmol/L; Blood Urea Nitrogen 37 mg/dL (7-17); Calcium 10.1 mg/dL (8.4-10.2); Carbon Dioxide 35 mmol/L (22-30); Chloride 99 mmol/L (98-107); Glucose 140 mg/dL (74-99); Magnesium 2.2 mg/dL (1.6-2.3); Non-African American GFR(CKD) 46 (>60 ml/min/1.73 sqM); Potassium 5.4 mmol/L (3.5-5.1); Sodium 139 mmol/L (137-145); Total Protein 6.7 g/dL (6.3-8.2)
[2024-07-01 13:27] LABS: ABG Oxygen Saturation 93.6 % (94-97); ABG PO2 80 mmHg (83-108); Allen Test Performed? Yes
[2024-07-01 13:29] LABS: NT-Pro-B-Type Natriuretic Pept 15500 pg/mL; Partial Thromboplastin Time 24.1 sec (22.0-30.0); Prothrombin Time 10.6 sec (10.0-12.5)
[2024-07-01] MEDS ORDERED: PNEUMONIA PROTOCOL UTILIZED 1 EACH MISC PO PRN (13:37)
[2024-07-01 13:44] LABS: ABG PH 7.12 (7.35-7.45)
[2024-07-01 13:45] LABS: ABG PCO2 >98 mmHg (35-45)
[2024-07-01 13:51] LABS: Appearance,Urine Cloudy (Clear); Bilirubin,Urine Negative (Negative); Blood,Urine Negative (Negative); Color,Urine Yellow; Glucose,Urine (UA) Negative (Negative); Hyaline Casts,Urine 2 /lpf (0-2); Ketones,Urine Negative (Negative); Leukocyte Esterase,Urine Negative (Negative); Mucus,Urine Few /hpf; Nitrite,Urine Negative (Negative); PH, Urine 5.5 (5.0-8.0); Protein,Urine 2+ (Negative); RBC,Urine 1 /hpf (0-5); Specific Gravity,Urine 1.021 (1.001-1.035); Squamous Epithelial Cell,Urine 9 /hpf (0-4); WBC,Urine 4 /hpf (0-5)
[2024-07-01] MEDS ORDERED: NALOXONE 0.4 MG/ML 1 ML VIAL IV PRN (14:12)
--- NOTE | 2024-07-01 14:16 | ED ---
General Adult HPI - General Chief complaint: Shortness of Breath Stated complaint: KULDIP Time Seen by Provider: 07/01/24 12:49 Source: family, EMS, RN notes reviewed, old records reviewed Mode of arrival: EMS Limitations: altered mental status - History of Present Illness Initial comments: Patient is a 78-year-old female who has a past medical history remarkable for chronic hypercapnic hypoxic respiratory failure on oxygen at home as well as C PAP, COPD, A-fib, CHF, hypertension who presents emergency department planing of difficulty breathing. Ambulance ride to the hospital was approximately 50 minutes long. Patient was placed on a nonrebreather of this. Time for mentation changed over that period of time. Became less responsive. She is on a provide any history. Apparently the patient has been having symptoms of worsening shortness of breath over the past few days and has not been wearing her CPAP at least over the last 24 hours. Presents for further evaluation at this time. Arrived on a nonrebreather. - Related Data Home Medications Medication Instructions Recorded Confirmed Apixaban [Eliquis] 2.5 mg PO DAILY 03/18/24 07/01/24 Atorvastatin [Lipitor] 40 mg PO DAILY 03/18/24 07/01/24 ALPRAZolam [Xanax] 0.25 mg PO DAILY PRN 04/18/24 07/01/24 Furosemide [Lasix] 20 mg PO DAILY 04/18/24 07/01/24 Losartan [Cozaar] 25 mg PO DAILY 04/18/24 07/01/24 Albuterol Nebulized [Ventolin 2.5 mg INHALATION RT-QID 07/01/24 07/01/24 Nebulized] Potassium Chloride ER [K-Dur 10] 10 meq PO DAILY 07/01/24 07/01/24 Previous Rx's Medication Instructions Recorded Budesonide-Formot 160-4.5 Mcg 2 puff INHALATION RT-BID 30 Days 03/23/24 [Symbicort 160-4.5 Mcg Inhaler] #1 each Allergies Allergy/AdvReac Type Severity Reaction Status Date / Time No Known Allergies Allergy Verified 07/01/24 14:27 Review of Systems ROS Statement: Those systems with pertinent positive or pertinent negative responses have been documented in the HPI. ROS Other: All systems not noted in ROS Statement are negative. Past Medical History Past Medical History: Atrial Fibrillation, COPD, Hypertension Additional Past Medical History / Comment(s): COPD, hypertension, secondary pulmonary hypertension, chronic hypoxic respiratory failure, chronic atrial fibrillation, hyperlipidemia, obstructive sleep apnea, NSTEMI (01/07/24) History of Any Multi-Drug Resistant Organisms: None Reported Past Surgical History: Heart Catheterization Additional Past Surgical History / Comment(s): Right lung lung lobectomy, hernia repair and the patient has a large anterior abdominal wall incision, hysterectomy, knee surgery, cholecystectomy Past Anesthesia/Blood Transfusion Reactions: No Reported Reaction Past Psychological History: No Psychological Hx Reported Smoking Status: Never smoker Past Alcohol Use History: Rare Past Drug Use History: None Reported - Past Family History Mother Family Medical History: Cancer Father Family Medical History: Coronary Artery Disease (CAD) General Exam - General Exam Comments Initial Comments: General: Patient is in respiratory distress. Altered, unresponsive other than to sternal rub. HEAD: [Normal with no signs of head trauma.] EYES: [PERRLA, EOMI, conjunctiva normal, no discharge.] ENT: [Hearing grossly intact, normal oropharynx.] RESPIRATORY: Decreased breath sounds over the right lung. Rhonchorous breath sounds. Hypoxic. Tachypneic. C/V: Irregular rate and rhythm. S1 and S2 auscultated. Significant bilateral lower extremity peripheral pitting edema. Peripheral pulses 2+ intact throughout. ABD: [Abd is soft, nontender, nondistended] EXT: [Normal range of motion, no obvious deformity] SKIN: [No rashes or lesions observed on exposed skin.] NEURO: Not alert or oriented. Relatively unresponsive except to pain. Altered mentation. Limitations: altered mental status Course Vital Signs 07/01/24 07/01/24 07/01/24 12:44 12:45 12:55 Temperature 97.2 F L Pulse Rate 123 H Respiratory 30 H 35 H Rate Blood Pressure 136/69 O2 Sat by Pulse 92 L Oximetry Fraction of 100 Inspired Oxygen (FIO2) 07/01/24 07/01/24 07/01/24 13:04 13:14 13:30 Temperature Pulse Rate 111 H 111 H 101 H Respiratory 16 Rate Blood Pressure 128/69 O2 Sat by Pulse 90 L Oximetry Fraction of Inspired Oxygen (FIO2) 07/01/24 07/01/24 07/01/24 13:37 13:45 13:48 Temperature Pulse Rate 99 Respiratory 17 Rate Blood Pressure 118/46 O2 Sat by Pulse 92 L Oximetry Fraction of 80 70 70 Inspired Oxygen (FIO2) 07/01/24 07/01/24 07/01/24 14:00 14:15 14:30 Temperature Pulse Rate 90 99 101 H Respiratory 18 15 16 Rate Blood Pressure 115/72 110/47 107/45 O2 Sat by Pulse 93 L 91 L 90 L Oximetry Fraction of Inspired Oxygen (FIO2) 07/01/24 07/01/24 07/01/24 14:45 15:00 15:15 Temperature Pulse Rate 107 H 101 H 112 H Respiratory 17 17 17 Rate Blood Pressure 110/43 125/58 120/62 O2 Sat by Pulse 91 L 89 L 91 L Oximetry Fraction of Inspired Oxygen (FIO2) 07/01/24 07/01/24 07/01/24 15:41 16:30 17:00 Temperature Pulse Rate 96 96 Respiratory Rate Blood Pressure 107/56 103/42 O2 Sat by Pulse 89 L 91 L Oximetry Fraction of 80 Inspired Oxygen (FIO2) 07/01/24 07/01/24 17:30 18:00 Temperature Pulse Rate 88 86 Respiratory 16 Rate Blood Pressure 90/36 93/37 O2 Sat by Pulse 91 L 91 L Oximetry Fraction of Inspired Oxygen (FIO2) Procedures - [place] Protocol (Time Out) Nurse: Arlene Lenz Medical Decision Making - Medical Decision Making Was pt. sent in by a medical professional or institution (ERMELINDA Campos, CELL BUILDER, urgent care, hospital, or custodial...) When possible be specific @ -No Did you speak to anyone other than the patient for history (EMS, parent, family, police, friend...)? What history was obtained from this source @ -Patient's daughter and provide most of the patient's past medical history. Expressed patient is DNR/DNI. Did you review nursing and triage notes (agree or disagree)? Why? @ -I reviewed and agree with nursing and triage notes Were old charts reviewed (outside hosp., previous admission, EMS record, old EKG, old radiological studies, urgent care reports/EKG's, custodial records)? Report findings @ -Old charts were reviewed. Differential Diagnosis (chest pain, altered mental status, abdominal pain women, abdominal pain men, vaginal bleeding, weakness, fever, dyspnea, syncope, headache, dizziness, GI bleed, back pain, seizure, CVA, palpatations, mental health, musculoskeletal)? @ -Differential Dyspnea: Coronary syndrome, arrhythmia, tamponade, asthma, COPD, pulmonary embolism, pneumonia, pneumothorax, pulmonary effusion, anaphylaxis, diabetic ketoacidosis, flailed chest, pulmonary contusion, diaphragmatic rupture, anemia, neuromuscular, this is not meant to be an all-inclusive list. EKG interpreted by me (3pts min.). @ -As above X-rays interpreted by me (1pt min.). @ -Right sided pneumonia as well as pleural effusion present. CT interpreted by me (1pt min.). @ -CT brain shows no obvious acute intracranial process. CT chest shows right- sided consolidation with surrounding pleural effusion concerning for possible pneumonia with pulmonic effusion or infectious effusion per radiology. U/S interpreted by me (1pt. min.). @ -None done What testing was considered but not performed or refused? (CT, X-rays, U/S, labs)? Why? @ -None What meds were considered but not given or refused? Why? @ -None Did you discuss the management of the patient with other professionals (professionals i.e. , PA, CELL BUILDER, lab, RT, psych nurse, social media marketing specialist, director fraud, teacher, fire prevention officer, pillowcase cutter)? Give summary @ -Discussed with Dr. Welch of ICU who accepted the admission to the ICU and was otherwise in agreement with the plan. Spoke with the admitting physician, Dr. Skelton who accepted the admission. Was smoking cessation discussed for >3mins.? @ -No Was critical care preformed (if so, how long)? @ -Yes, 37 minutes. Were there social determinants of health that impacted care today? How? (Homelessness, low income, unemployed, alcoholism, drug addiction, transportation, low edu. Level, literacy, decrease access to med. care, assisted, r ehab)? @ -No Was there de-escalation of care discussed even if they declined (Discuss DNR or withdrawal of care, Hospice)? DNR status @ -Spoke with daughter as well as , and they both explained that patient is a DO NOT RESUSCITATE. DNR/DNI. What co-morbidities impacted this encounter? (DM, HTN, Smoking, COPD, CAD, Cancer, CVA, ARF, Chemo, Hep., AIDS, mental health diagnosis, sleep apnea, morbid obesity)? @ -Chronic hypoxic and hypercapnic respiratory failure. COPD, CHF. Atrial fibrillation. Was patient admitted / discharged? Hospital course, mention meds given and route, prescriptions, significant lab abnormalities, going to OR and other pertinent info. @ -Based on the patient's presentation and physical exam, patient presents with altered mentation and shortness of breath. Is supposed be wearing CPAP at home but is intermittently noncompliant. Became more unresponsive on the way to the hospital as it was over an hour drive drive and patient was placed on a nonrebreather. I do suspect hypercapnia. He has some right sided lung findings on exam. Vital signs are remarkable for A-fib with RVR, hypoxia, increased work of breathing. Blood pressure within acceptable limits. Patient immediately placed on BiPAP. I did speak with patient's family as patient may require intubation however they did inform me that patient is DNR/DNI and would not want intubation. I believe this is reasonable and therefore we will continue on BiPAP. She will receive maintenance fluids only as patient does appear volume overloaded on exam. We will treat with breathing treatments, IV steroids. Pulmonary workup as well as CT chest and brain will be obtained. Family was in agreement this plan. Patient is altered. Laboratory studies returned remarkable for a leukocytosis of 21.5. Lactic acid is 0.9. BNP is 15,000. Patient has slight hyperkalemia with no EKG changes. Chest x-ray shows a right-sided pneumonia with pleural effusion. At this time patient does meet sepsis criteria. Source is pneumonia with pleural effusion. This was at 1330. Patient was placed on broad-spectrum antibiotics, azithromycin and Zosyn. We will not provide the patient with 30 cc/kg fluid bolus as she is hemodynamically stable and appears to have CHF with volume overload. We will closely monitor and only place patient on maintenance fluids at this time. Lactic acid within normal limits. Hemodynamically stable otherwise. CT imaging returned negative for the brain. Redemonstrated the right sided pneumonia with pleural effusion on CT chest. Patient will be admitted to the ICU after discussion with her geriatrician Dr. Mendez who accepted the admission to the ICU. I spoke with Dr. Estrada to also accepted the admission. Patient will be admitted on BiPAP. She has no code. Will continue with IV maintenance fluids, steroids, antibiotics, breathing treatments. BiPAP settings were adjusted after VBG revealed hypercapnia. Patient will be admitted to the ICU. Family in agreement this plan. Undiagnosed new problem with uncertain prognosis? @ -No Drug Therapy requiring intensive monitoring for toxicity (Heparin, Nitro, Insulin, Cardizem)? @ -No Were any procedures done? @ -No Diagnosis/symptom? @ -Acute on chronic hypoxic, hypercapnic respiratory failure secondary to COPD, pneumonia, CHF requiring BiPAP. Sepsis with source of pneumonia. Altered mentation secondary to hypercapnia. Acute, or Chronic, or Acute on Chronic? @ -Acute Uncomplicated (without systemic symptoms) or Complicated (systemic symptoms)? @ -Complicated Side effects of treatment? @ -No Exacerbation, Progression, or Severe Exacerbation? @ -No Poses a threat to life or bodily function? How? (Chest pain, USA, MS, pneumonia, PE, COPD, DKA, ARF, appy, cholecystitis, CVA, Diverticulitis, Homicidal, Suicidal, threat to staff... and all critical care pts) @ -Yes - Lab Data Result diagrams: 07/01/24 13:00 07/01/24 13:00 Lab Results 07/01/24 07/01/24 07/01/24 Range/Units 13:00 13:00 13:00 WBC 21.5 H (3.8-10.6) k/uL RBC 4.18 (3.80-5.40) m/uL Hgb 12.9 (11.4-16.0) gm/dL Hct 42.7 (34.0-46.0) % MCV 102.1 H (80.0-100.0) fL MCH 30.7 (25.0-35.0) pg MCHC 30.1 L (31.0-37.0) g/dL RDW 14.0 (11.5-15.5) % Plt Count 436 (150-450) k/uL MPV 7.3 Neutrophils % 83 % Lymphocytes % 10 % Monocytes % 5 % Eosinophils % 1 % Basophils % 1 % Neutrophils # 17.8 H (1.3-7.7) k/uL Lymphocytes # 2.0 (1.0-4.8) k/uL Monocytes # 1.1 H (0-1.0) k/uL Eosinophils # 0.1 (0-0.7) k/uL Basophils # 0.1 (0-0.2) k/uL Hypochromasia Marked Macrocytosis Slight PT 10.6 (10.0-12.5) sec INR 1.0 (<1.2) APTT 24.1 (22.0-30.0) sec Sample Site ABG pH (7.35-7.45) ABG pCO2 (35-45) mmHg ABG pO2 (83-108) mmHg ABG O2 Saturation (94-97) % Eric Test FiO2 % Sodium 139 (137-145) mmol/L Potassium 5.4 H (3.5-5.1) mmol/L Chloride 99 (98-107) mmol/L Carbon Dioxide 35 H (22-30) mmol/L Anion Gap 5 mmol/L BUN 37 H (7-17) mg/dL Creatinine 1.13 H (0.52-1.04) mg/dL Est GFR (CKD-EPI)AfAm 54 (>60 ml/min/1.73 sqM) Est GFR (CKD-EPI)NonAf 46 (>60 ml/min/1.73 sqM) Glucose 140 H (74-99) mg/dL Plasma Lactic Acid Derek (0.7-2.0) mmol/L Calcium 10.1 (8.4-10.2) mg/dL Magnesium 2.2 (1.6-2.3) mg/dL Total Bilirubin 1.0 (0.2-1.3) mg/dL AST 22 (14-36) U/L ALT 12 (4-34) U/L Alkaline Phosphatase 109 (38-126) U/L Troponin I (0.000-0.034) ng/mL NT-Pro-B Natriuret Pep 28238 pg/mL Total Protein 6.7 (6.3-8.2) g/dL Albumin 3.8 (3.5-5.0) g/dL Urine Color Urine Appearance (Clear) Urine pH (5.0-8.0) Ur Specific Nathalie (1.001-1.035) Urine Protein (Negative) Urine Glucose (UA) (Negative) Urine Ketones (Negative) Urine Blood (Negative) Urine Nitrite (Negative) Urine Bilirubin (Negative) Urine Urobilinogen (<2.0) mg/dL Ur Leukocyte Esterase (Negative) Urine RBC (0-5) /hpf Urine WBC (0-5) /hpf Ur Squamous Epith Cells (0-4) /hpf Hyaline Casts (0-2) /lpf Urine Mucus (None) /hpf Influenza Type A (PCR) (Not Detectd) Influenza Type B (PCR) (Not Detectd) RSV (PCR) (Not Detectd) SARS-CoV-2 (PCR) (Not Detectd) 07/01/24 07/01/24 07/01/24 Range/Units 13:00 13:00 13:19 WBC (3.8-10.6) k/uL RBC (3.80-5.40) m/uL Hgb (11.4-16.0) gm/dL Hct (34.0-46.0) % MCV (80.0-100.0) fL MCH (25.0-35.0) pg MCHC (31.0-37.0) g/dL RDW (11.5-15.5) % Plt Count (150-450) k/uL MPV Neutrophils % % Lymphocytes % % Monocytes % % Eosinophils % % Basophils % % Neutrophils # (1.3-7.7) k/uL Lymphocytes # (1.0-4.8) k/uL Monocytes # (0-1.0) k/uL Eosinophils # (0-0.7) k/uL Basophils # (0-0.2) k/uL Hypochromasia Macrocytosis PT (10.0-12.5) sec INR (<1.2) APTT (22.0-30.0) sec Sample Site ABG pH (7.35-7.45) ABG pCO2 (35-45) mmHg ABG pO2 (83-108) mmHg ABG O2 Saturation (94-97) % Eric Test FiO2 % Sodium (137-145) mmol/L Potassium (3.5-5.1) mmol/L Chloride (98-107) mmol/L Carbon Dioxide (22-30) mmol/L Anion Gap mmol/L BUN (7-17) mg/dL Creatinine (0.52-1.04) mg/dL Est GFR (CKD-EPI)AfAm (>60 ml/min/1.73 sqM) Est GFR (CKD-EPI)NonAf (>60 ml/min/1.73 sqM) Glucose (74-99) mg/dL Plasma Lactic Acid Derek 0.9 (0.7-2.0) mmol/L Calcium (8.4-10.2) mg/dL Magnesium (1.6-2.3) mg/dL Total Bilirubin (0.2-1.3) mg/dL AST (14-36) U/L ALT (4-34) U/L Alkaline Phosphatase (38-126) U/L Troponin I 0.034 (0.000-0.034) ng/mL NT-Pro-B Natriuret Pep pg/mL Total Protein (6.3-8.2) g/dL Albumin (3.5-5.0) g/dL Urine Color Urine Appearance (Clear) Urine pH (5.0-8.0) Ur Specific Nathalie (1.001-1.035) Urine Protein (Negative) Urine Glucose (UA) (Negative) Urine Ketones (Negative) Urine Blood (Negative) Urine Nitrite (Negative) Urine Bilirubin (Negative) Urine Urobilinogen (<2.0) mg/dL Ur Leukocyte Esterase (Negative) Urine RBC (0-5) /hpf Urine WBC (0-5) /hpf Ur Squamous Epith Cells (0-4) /hpf Hyaline Casts (0-2) /lpf Urine Mucus (None) /hpf Influenza Type A (PCR) Not Detected (Not Detectd) Influenza Type B (PCR) Not Detected (Not Detectd) RSV (PCR) Not Detected (Not Detectd) SARS-CoV-2 (PCR) Not Detected (Not Detectd) 07/01/24 07/01/24 Range/Units 13:22 13:37 WBC (3.8-10.6) k/uL RBC (3.80-5.40) m/uL Hgb (11.4-16.0) gm/dL Hct (34.0-46.0) % MCV (80.0-100.0) fL MCH (25.0-35.0) pg MCHC (31.0-37.0) g/dL RDW (11.5-15.5) % Plt Count (150-450) k/uL MPV Neutrophils % % Lymphocytes % % Monocytes % % Eosinophils % % Basophils % % Neutrophils # (1.3-7.7) k/uL Lymphocytes # (1.0-4.8) k/uL Monocytes # (0-1.0) k/uL Eosinophils # (0-0.7) k/uL Basophils # (0-0.2) k/uL Hypochromasia Macrocytosis PT (10.0-12.5) sec INR (<1.2) APTT (22.0-30.0) sec Sample Site Left Radial ABG pH 7.12 L* (7.35-7.45) ABG pCO2 >98 H* (35-45) mmHg ABG pO2 80 L (83-108) mmHg ABG O2 Saturation 93.6 L (94-97) % Eric Test Yes FiO2 100 % Sodium (137-145) mmol/L Potassium (3.5-5.1) mmol/L Chloride (98-107) mmol/L Carbon Dioxide (22-30) mmol/L Anion Gap mmol/L BUN (7-17) mg/dL Creatinine (0.52-1.04) mg/dL Est GFR (CKD-EPI)AfAm (>60 ml/min/1.73 sqM) Est GFR (CKD-EPI)NonAf (>60 ml/min/1.73 sqM) Glucose (74-99) mg/dL Plasma Lactic Acid Derek (0.7-2.0) mmol/L Calcium (8.4-10.2) mg/dL Magnesium (1.6-2.3) mg/dL Total Bilirubin (0.2-1.3) mg/dL AST (14-36) U/L ALT (4-34) U/L Alkaline Phosphatase (38-126) U/L Troponin I (0.000-0.034) ng/mL NT-Pro-B Natriuret Pep pg/mL Total Protein (6.3-8.2) g/dL Albumin (3.5-5.0) g/dL Urine Color Yellow Urine Appearance Cloudy H (Clear) Urine pH 5.5 (5.0-8.0) Ur Specific Nathalie 1.021 (1.001-1.035) Urine Protein 2+ H (Negative) Urine Glucose (UA) Negative (Negative) Urine Ketones Negative (Negative) Urine Blood Negative (Negative) Urine Nitrite Negative (Negative) Urine Bilirubin Negative (Negative) Urine Urobilinogen 2.0 (<2.0) mg/dL Ur Leukocyte Esterase Negative (Negative) Urine RBC 1 (0-5) /hpf Urine WBC 4 (0-5) /hpf Ur Squamous Epith Cells 9 H (0-4) /hpf Hyaline Casts 2 (0-2) /lpf Urine Mucus Few H (None) /hpf Influenza Type A (PCR) (Not Detectd) Influenza Type B (PCR) (Not Detectd) RSV (PCR) (Not Detectd) SARS-CoV-2 (PCR) (Not Detectd) - EKG Data -: EKG Interpreted by Me EKG Comments: 12-lead Electrocardiogram Interpretation Note EKG was reviewed and interpreted by myself. 12-lead ECG performed at 1245 is interpreted by me as revealing A-fib with RVR at a rate of 113 beats per minute. [place] is normal. QRS duration is 93 ms, QTc is 421 ms.. There were no ST or T wave abnormalities to suggest myocardial ischemia or injury. R wave progression across the precordium was satisfactory. By my interpretation this EKG is non- diagnostic for acute ischemia. Critical Care Time Critical Care Time: Yes Total Critical Care Time: 37 Disposition Clinical Impression: Hypercapnic respiratory failure, Hypoxic respiratory failure, BiPAP (biphasic positive airway pressure) dependence, Pneumonia, Pleural effusion, Atrial fibrillation, Altered mental status, DNR (do not resuscitate), Sepsis Disposition: ADMITTED IP TO THIS HOSP Condition: Serious Time of Disposition: 14:16
[2024-07-01] MEDS ORDERED: RX INFO: IV CONTRAST WAS GIVEN 1 EACH MISC MISCELLANE PRN (14:17)
--- NOTE | 2024-07-01 14:19 | XR ---
EXAMINATION TYPE: XR chest 1V portable DATE OF EXAM: 07/01/2024 Comparison: 04/20/2014 Clinical History: 78 year-old female shortness of breath, difficulty breathing Findings: The patient is rotated towards the right. There is further limitation due to large body habitus, port able technique, patient's chin and external artifacts obscuring the apices. There is progressive obsc uration of the right heart margin due to pleural-parenchymal opacities. Impression: 1. Portable exam further limited by rotation, large body habitus, and patient's chin obscuring the ap ices. 2. There is enlarging, now moderate to large right pleural effusion with adjacent atelectasis and/or consolidation. 3. Repeat exam with improved positioning when patient able to further assess the apices. There are mu ltiple overlying artifacts here.
[2024-07-01] MEDS: FUROSEMIDE 10 MG/ML 4 ML VIAL IV STA (14:30)
[2024-07-01] MEDS: AZITHROMYCIN 500 MG in SODIUM CHLORIDE 0.9% 250 ML IVPB STA (14:40)
[2024-07-01] MEDS: PIPERACILLIN-TAZOBACTAM 3.375 GM in SODIUM CHLORIDE 0.9% 100 ML IVPB STA (14:43)
--- NOTE | 2024-07-01 15:09 | P.HPIM ---
History of Present Illness This is a pleasant 78 years old female with past medical history of multiple medical problems as below. Patient presents because of altered mental status. Patient cannot provide information it was obtained from the family at bedside and records. As per and family patient was not using her BiPAP and she was sleeping most of the time yesterday around 22 hours, family got concerned and brought her to the hospital today. Patient is completely confused and cannot provide information and she has evidence of acute COPD exacerbations and she was admitted to the intensive care unit for this reason. No other information is available at now. Patient was mildly hypothermic 97.2, she is breathing fast at 30, tachycardic but blood pressure stable at 136/69. Labs reviewed showing WBC 21,000, rest of CBC is unremarkable Sodium 139, potassium 5.4. Creatinine is 1.1 pH is low 7.1, pCO2 is elevated at 98 and low pO2 at 80. Liver enzymes unremarkable Chest x-ray showing right lower lobe infiltrate. Patient is DNR and DNI and this confirmed with the family. Patient is going to be admitted to the ICU Review of Systems ROS unobtainable: due to mental status Past Medical History Past Medical History: Atrial Fibrillation, COPD, Hypertension Additional Past Medical History / Comment(s): COPD, hypertension, secondary pulmonary hypertension, chronic hypoxic respiratory failure, chronic atrial fibrillation, hyperlipidemia, obstructive sleep apnea, NSTEMI (01/07/24) History of Any Multi-Drug Resistant Organisms: None Reported Past Surgical History: Heart Catheterization Additional Past Surgical History / Comment(s): Right lung lung lobectomy, hernia repair and the patient has a large anterior abdominal wall incision, hysterectomy, knee surgery, cholecystectomy Past Anesthesia/Blood Transfusion Reactions: No Reported Reaction Past Psychological History: No Psychological Hx Reported Smoking Status: Never smoker Past Alcohol Use History: Rare Past Drug Use History: None Reported - Past Family History Mother Family Medical History: Cancer Father Family Medical History: Coronary Artery Disease (CAD) Medications and Allergies Home Medications Medication Instructions Recorded Confirmed Type Apixaban [Eliquis] 2.5 mg PO DAILY 03/18/24 07/01/24 History Atorvastatin [Lipitor] 40 mg PO DAILY 03/18/24 07/01/24 History Budesonide-Formot 160-4.5 Mcg 2 puff INHALATION RT-BID 30 Days 03/23/24 07/01/24 Rx [Symbicort 160-4.5 Mcg Inhaler] #1 each ALPRAZolam [Xanax] 0.25 mg PO DAILY PRN 04/18/24 07/01/24 History Furosemide [Lasix] 20 mg PO DAILY 04/18/24 07/01/24 History Losartan [Cozaar] 25 mg PO DAILY 04/18/24 07/01/24 History Albuterol Nebulized [Ventolin 2.5 mg INHALATION RT-QID 07/01/24 07/01/24 History Nebulized] Potassium Chloride ER [K-Dur 10] 10 meq PO DAILY 07/01/24 07/01/24 History Allergies Allergy/AdvReac Type Severity Reaction Status Date / Time No Known Allergies Allergy Verified 07/01/24 14:27 Physical Exam Vitals: Vital Signs Temp Pulse Resp BP Pulse Ox FiO2 07/01/24 14:30 101 H 16 107/45 90 L 07/01/24 14:15 99 15 110/47 91 L 07/01/24 14:00 90 18 115/72 93 L 07/01/24 13:48 70 07/01/24 13:45 99 17 118/46 92 L 70 07/01/24 13:37 80 07/01/24 13:30 101 H 16 128/69 90 L 07/01/24 13:14 111 H 07/01/24 13:04 111 H 07/01/24 12:55 100 07/01/24 12:45 35 H 07/01/24 12:44 97.2 F L 123 H 30 H 136/69 92 L Intake and Output 07/01/24 07/01/24 07/01/24 06:59 14:59 22:59 Other: Weight 97.976 kg -GENERAL: The patient is nonverbal on CPAP machine HEENT: Pupils are round and equally reacting to light. EOMI. No scleral icterus. No conjunctival pallor. Normocephalic, atraumatic. No pharyngeal erythema. No thyromegaly. CARDIOVASCULAR: S1 and S2 present. No murmurs, rubs, or gallops. PULMONARY: no wheezing , no crackles. Decreased air entry on both sides ABDOMEN: Soft, nontender, nondistended, normoactive bowel sounds. No palpable organomegaly. MUSCULOSKELETAL: No joint swelling or deformity. EXTREMITIES: No cyanosis, clubbing, or pedal edema. NEUROLOGICAL: Gross neurological examination did not reveal any focal deficits. SKIN: No rashes. no petechiae. Results CBC & Chem 7: 07/01/24 13:00 07/01/24 13:00 Labs: Abnormal Lab Results - Last 24 Hours (Table) 07/01/24 07/01/24 07/01/24 Range/Units 13:00 13:00 13:22 WBC 21.5 H (3.8-10.6) k/uL MCV 102.1 H (80.0-100.0) fL MCHC 30.1 L (31.0-37.0) g/dL Neutrophils # 17.8 H (1.3-7.7) k/uL Monocytes # 1.1 H (0-1.0) k/uL ABG pH 7.12 L* (7.35-7.45) ABG pCO2 >98 H* (35-45) mmHg ABG pO2 80 L (83-108) mmHg ABG O2 Saturation 93.6 L (94-97) % Potassium 5.4 H (3.5-5.1) mmol/L Carbon Dioxide 35 H (22-30) mmol/L BUN 37 H (7-17) mg/dL Creatinine 1.13 H (0.52-1.04) mg/dL Glucose 140 H (74-99) mg/dL Urine Appearance (Clear) Urine Protein (Negative) Ur Squamous Epith Cells (0-4) /hpf Urine Mucus (None) /hpf 07/01/24 Range/Units 13:37 WBC (3.8-10.6) k/uL MCV (80.0-100.0) fL MCHC (31.0-37.0) g/dL Neutrophils # (1.3-7.7) k/uL Monocytes # (0-1.0) k/uL ABG pH (7.35-7.45) ABG pCO2 (35-45) mmHg ABG pO2 (83-108) mmHg ABG O2 Saturation (94-97) % Potassium (3.5-5.1) mmol/L Carbon Dioxide (22-30) mmol/L BUN (7-17) mg/dL Creatinine (0.52-1.04) mg/dL Glucose (74-99) mg/dL Urine Appearance Cloudy H (Clear) Urine Protein 2+ H (Negative) Ur Squamous Epith Cells 9 H (0-4) /hpf Urine Mucus Few H (None) /hpf Assessment and Plan Assessment: Acute COPD exacerbation Acute hypoxic hypercapnic respiratory failure Acute respiratory acidosis Hypertension Pulmonary hypertension Chronic hypoxic respiratory failure Chronic atrial fibrillation Hyperlipidemia History of obstructive sleep apnea History of coronary artery disease s/p cardiac cath Plan: Admit patient to the ICU Continue with IV Solu-Medrol Continue with antibiotic Zosyn and Zithromax Patient continued on CPAP/BiPAP machine with oxygen therapy Bronchodilator Pulmonary/critical care team consult Patient is DNR DNR GI DVT prophylaxis Prognosis is guarded
--- NOTE | 2024-07-01 15:45 | CT ---
EXAMINATION TYPE: CT brain wo con DATE OF EXAM: 07/01/2024 COMPARISON: 03/18/2024 HISTORY: 78 year-old female altered mental status, confusion. TECHNIQUE: Examination was done in axial plane without intravenous contrast. Coronal and sagittal r econstructions performed. CT DLP: Combined DLP 1624.8 mGycm Automated exposure control for dose reduction was used. FINDINGS: There is no evidence of acute intracranial hemorrhage, acute ischemic changes, mass, mass-effect, or extra-axial fluid collection. There is no effacement of cerebral sulci or basal subarachnoid cister ns. There is no hydrocephalus. There is no midline shift. Cabello-white matter distinction is preserv ed. Moderate to severe confluent white matter hypodensities in posterior hemispheres remain unchanged. Mi ld ventricular prominence relating to central cerebral atrophy. Atherosclerotic calcifications in th e carotid siphons. Leftward nasal septal deviation. A request, paranasal sinuses and mastoid air cells are well pneumati zed. Orbits and globes are intact. IMPRESSION: Mild age related central cerebral atrophy. Moderate to severe confluent burden of chronic small vesse l ischemic disease. No acute intracranial abnormality seen.
--- NOTE | 2024-07-01 16:02 | CT ---
EXAMINATION TYPE: CT chest w con DATE OF EXAM: 07/01/2024 COMPARISON: 11/04/2023 HISTORY: 78-year-old female with dyspnea, shortness of breath, Pt found unresponsive. Pt on bypap. Rt lung only partially works, unknown if there was a lobectomy or not. TECHNIQUE: Contiguous axial scanning of the chest after the administration of 80 ml mL of Isovue 300. Coronal/sagittal reconstructions performed. CT DLP: Combined DLP of 1624.8mGycm. Automatic exposure control utilized for a dose reduction. FINDINGS: The heart is moderately enlarged without pericardial effusion. Ascending aorta ectatic and 3.7 cm lipoma in configuration to the aortic arch. A right paratracheal lymph node measures 1.6 cm, likely reactive/post inflammatory. A posterior left thyroid lobe nodule measuring 1.4 cm is unchanged favoring a benign etiology. Large caliber main right and left pulmonary arteries measuring up to 3.1 cm suggesting underlying pul monary arterial hypertension. There is extensive consolidation and collapse throughout the right mid and lower lung and intervening areas of fluid density probably along both the pleural space and tracking along the fissures. The la rgest focal collection is located anterior right upper lung measuring 10.9 x 4.8 x 2.8 cm. Small right apical bulla measuring 2.4 cm. Strandy atelectasis left base. Visualized upper abdomen shows suspected Fior fundoplication. There is a rectus diastases present. Mild/moderate disc disease lower thoracic spine. IMPRESSION: 1. COPD with mild emphysema. Pulmonary arterial hypertension and moderate cardiomegaly. 2. Extensive consolidation and collapse throughout the right upper and lower lung with areas of pleur al fluid also intervening along the lung parenchyma, possibly tracking within the fissures. Largest c ollection anterior right upper lung measuring 10.9 x 4.8 x 2.8 cm (sagittal image 45 and axial image 15). Correlate to exclude pneumonia and infective fluid collections.
[2024-07-01] MEDS: methylPREDNISolone SOD SUCCI 40 MG/ML 1 ML VIAL IV SCH (16:42)
[2024-07-01 18:29] LABS: Glucose,Whole Blood 156 mg/dL (70-110)
[2024-07-01] MEDS: SODIUM CHLORIDE 0.9% 1,000 ML IV ONE (21:30)
[2024-07-01] MEDS: SODIUM CHLORIDE 0.9% 1,000 ML IV SCH (22:30)
[2024-07-01] MEDS: ENOXAPARIN 40 MG/0.4 ML SYRINGE SQ SCH (23:20)
[2024-07-02] MEDS: PIPERACILLIN-TAZOBACTAM 3.375 GM in SODIUM CHLORIDE 0.9% 100 ML IVPB SCH (00:22)
[2024-07-02] MEDS ORDERED: VANCOMYCIN IV PER PHARMACY 1 EACH MISC MISCELLANE PRN (01:11)
--- NOTE | 2024-07-02 01:17 | P.CNPUL ---
History of Present Illness Consult date: 07/02/24 Requesting physician: Quinten Esteban Reason for consult: COPD, pneumonia Chief complaint: Altered mental status, shortness of breath History of present illness: Patient is a 78-year-old white female with past medically significant for severe COPD, chronic hypoxemic and hypercapnic respiratory failure on 1.5 L nasal cannula while at home, and obstructive sleep apnea. She follows in the pulmonary office with Dr. Welch. She has had recurrent hospitalizations for hypercapnic respiratory failure. Last recorded hospital admission was 04/19/2024 through 04/24/2024 for acute COPD exacerbation. She did receive IV antibiotics at that time. She was brought in by EMS yesterday afternoon, she reportedly has been noncompliant with her home CPAP. She has been more lethargic and sleepy at home . EMS reportedly noted her short of breath on arrival, she was placed on nonrebreather in route, and became less responsive. She was noted to be severely hypercapnic on arrival, and placed on a BiPAP with current settings of 16/6 and FiO2 80%. She is reportedly a DO NOT RESUSCITATE/DO NOT INTUBATE. Currently, unable to provide any information. She is obtunded, responds only to painful stimuli. Most recent blood gas is a PaO2 of 80, pCO2 greater than 98, pH of 7.12. She is on BiPAP with above-mentioned settings. She is generating tidal volumes of 300-350, respiratory rate is 15 to 20 breaths/min. SpO2 currently 94%. She does have an elevated white blood cell count of 21.5. Chest x-ray shows a right-sided consolidation with volume loss. She did have a follow-up chest CT, the report demonstrates COPD with mild emphysema along with pulmonary air arterial hypertension and moderate cardiomegaly. There is extensive consolidation and collapse throughout the right upper and lower lung with areas of pleural fluid ulcer intervening along the lung parenchyma, possible tracking within the fissures. Largest collection anterior right upper lung measuring 10.9 x 4.8 x 2.8 cm. Patient was covered with empiric antibiotics including Zosyn and azithromycin. Lactic acid 0.8. Blood pressure normotensive. Not requiring any vasopressors. Viral screen negative for COVID, RSV, influenza. CBC: WBC count 21.5, hemoglobin 12.9, hematocrit 42.7, platelets 436. CMP: Sodium 139, potassium 5.4, chloride 99, serum bicarb 35, BUN 37, creatinine 1.13, glucose 140. LFTs unremarkable. Troponin 0.034. NT proBNP 15,500. Urinalysis unremarkable for infection. Currently afebrile. Respiratory status is labile. Remaining vital signs are stable. Review of Systems ROS unobtainable: due to mental status Past Medical History Past Medical History: Atrial Fibrillation, COPD, Hypertension Additional Past Medical History / Comment(s): COPD, hypertension, secondary pulmonary hypertension, chronic hypoxic respiratory failure, chronic atrial fibrillation, hyperlipidemia, obstructive sleep apnea, NSTEMI (01/07/24); cpap at home, not always compliant with cpap History of Any Multi-Drug Resistant Organisms: None Reported Past Surgical History: Heart Catheterization Additional Past Surgical History / Comment(s): Right upper lung lobectomy, hernia repair and the patient has a large anterior abdominal wall incision, hysterectomy, knee surgery, cholecystectomy Past Anesthesia/Blood Transfusion Reactions: No Reported Reaction Smoking Status: Never smoker - Past Family History Mother Family Medical History: Cancer Father Family Medical History: Coronary Artery Disease (CAD) Medications and Allergies Home Medications Medication Instructions Recorded Confirmed Type Apixaban [Eliquis] 2.5 mg PO DAILY 03/18/24 07/01/24 History Atorvastatin [Lipitor] 40 mg PO DAILY 03/18/24 07/01/24 History Budesonide-Formot 160-4.5 Mcg 2 puff INHALATION RT-BID 30 Days 03/23/24 07/01/24 Rx [Symbicort 160-4.5 Mcg Inhaler] #1 each ALPRAZolam [Xanax] 0.25 mg PO DAILY PRN 04/18/24 07/01/24 History Furosemide [Lasix] 20 mg PO DAILY 04/18/24 07/01/24 History Losartan [Cozaar] 25 mg PO DAILY 04/18/24 07/01/24 History Albuterol Nebulized [Ventolin 2.5 mg INHALATION RT-QID 07/01/24 07/01/24 History Nebulized] Potassium Chloride ER [K-Dur 10] 10 meq PO DAILY 07/01/24 07/01/24 History Allergies Allergy/AdvReac Type Severity Reaction Status Date / Time No Known Allergies Allergy Verified 07/01/24 14:27 Physical Exam Vitals: Vital Signs Temp Pulse Resp BP Pulse Ox FiO2 07/01/24 19:59 80 07/01/24 18:30 98.2 F 86 16 120/60 89 L 80 07/01/24 18:00 86 93/37 91 L 07/01/24 17:30 88 16 90/36 91 L 07/01/24 17:00 96 103/42 91 L 07/01/24 16:30 96 107/56 89 L 07/01/24 15:41 80 07/01/24 15:15 112 H 17 120/62 91 L 07/01/24 15:00 101 H 17 125/58 89 L 07/01/24 14:45 107 H 17 110/43 91 L 07/01/24 14:30 101 H 16 107/45 90 L 07/01/24 14:15 99 15 110/47 91 L 07/01/24 14:00 90 18 115/72 93 L 07/01/24 13:48 70 07/01/24 13:45 99 17 118/46 92 L 70 07/01/24 13:37 80 07/01/24 13:30 101 H 16 128/69 90 L 07/01/24 13:14 111 H 07/01/24 13:04 111 H 07/01/24 12:55 100 07/01/24 12:45 35 H 07/01/24 12:44 97.2 F L 123 H 30 H 136/69 92 L Intake and Output 07/01/24 07/01/24 07/02/24 14:59 22:59 06:59 Intake Total 1175 Output Total 30 Balance 1145 Intake: Intake, IV Titration 1175 Amount Piperacillin-Tazobactam 3 100 .375 gm In Sodium Chloride 0.9% 100 ml @ 25 mls/hr IVPB Q8HR DELON Rx# :[id number] Sodium Chloride 0.9% 1, 75 000 ml @ 75 mls/hr IV . [id number] STA Rx#:[id number] Sodium Chloride 0.9% 1, 1000 000 ml @ 999 mls/hr IV . Q1H1M ONE Rx#:[id number] Output: Urine 30 Other: Weight 97.976 kg 97.976 kg GENERAL EXAM: Obtunded, grimacing with deep painful stimuli, on BiPAP, nurse at the bedside. HEAD: Normocephalic and atraumatic EYES: Normal reaction of pupils, equal size. NOSE: Clear with pink turbinates. THROAT: No erythema or exudates. NECK: No masses, no JVD. CHEST: No chest wall deformity. LUNGS: Equal air entry with expiratory wheezes and rhonchi, diminished right basilar lung sounds. On BiPAP with current settings 16/6 and FiO2 80%. SpO2 94%. Generating tidal volumes of 300-350. Respiratory rate averaging 15 to 20 breaths/min. No accessory muscle use. CVS: S1 and S2 normal with no audible murmur, regular rhythm. No extra heart sounds ABDOMEN: No hepatosplenomegaly, active bowel sounds, no guarding or rigidity. SPINE: No scoliosis or deformity SKIN: No rashes CENTRAL NERVOUS SYSTEM obtunded, no focal deficits, tone is weak in all 4 extremities. EXTREMITIES: There is no peripheral edema, clubbing, or cyanosis. Peripheral pulses are intact. Results - Laboratory Findings CBC and BMP: 07/01/24 13:00 07/01/24 13:00 ABG ABG pH 7.12 (7.35-7.45) L* 07/01/24 13:22 ABG pCO2 >98 mmHg (35-45) H* 07/01/24 13:22 ABG pO2 80 mmHg (83-108) L 07/01/24 13:22 ABG O2 Saturation 93.6 % (94-97) L 07/01/24 13:22 PT/INR, D-dimer PT 10.6 sec (10.0-12.5) 07/01/24 13:00 INR 1.0 (<1.2) 07/01/24 13:00 Abnormal lab findings: Abnormal Labs 07/01/24 07/01/24 07/01/24 13:00 13:00 13:22 WBC 21.5 H MCV 102.1 H MCHC 30.1 L Neutrophils # 17.8 H Monocytes # 1.1 H ABG pH 7.12 L* ABG pCO2 >98 H* ABG pO2 80 L ABG O2 Saturation 93.6 L Potassium 5.4 H Carbon Dioxide 35 H BUN 37 H Creatinine 1.13 H Glucose 140 H POC Glucose (mg/dL) Urine Appearance Urine Protein Ur Squamous Epith Cells Urine Mucus 07/01/24 07/01/24 13:37 18:27 WBC MCV MCHC Neutrophils # Monocytes # ABG pH ABG pCO2 ABG pO2 ABG O2 Saturation Potassium Carbon Dioxide BUN Creatinine Glucose POC Glucose (mg/dL) 156 H Urine Appearance Cloudy H Urine Protein 2+ H Ur Squamous Epith Cells 9 H Urine Mucus Few H - Diagnostic Findings Chest x-ray: image reviewed CT scan - chest: image reviewed Assessment and Plan Assessment: Acute on chronic hypoxemic and hypercapnic respiratory failure, secondary to acute COPD exacerbation and extensive of right sided healthcare associated pneumonia. Chest x-ray shows an extensive right lower lobe consolidation with volume loss. Follow-up chest CT redemonstrates the extensive consolidation and collapse throughout the right upper and lower lung with areas of pleural fluid also intervening along the lung parenchyma, possible tracking within the fissures. Largest collection anterior right upper lung measuring 10.9 x 4.8 x 2.8 cm. Possible infectious empyema. Acute hypercapnic encephalopathy Severe chronic obstructive pulmonary disease Chronic hypoxemic respiratory failure, secondary to above, normally on 1.5 L/min nasal cannula while at home History of obstructive sleep apnea, reportedly noncompliant with home CPAP machine History of heart failure, with borderline mildly impaired left ventricular ejection fraction of 45 to 50% History of pulmonary hypertension Chronic atrial fibrillation, normally anticoagulated on Eliquis History of hyperlipidemia History of hypertension Plan: Continue BiPAP therapy, with current settings. Wean FiO2 to maintain SpO2 86 to 90%. ABG noted, consistent with severe hypercapnic respiratory failure. Patient is a DO NOT INTUBATE/DO NOT RESUSCITATE status. Start patient on combination of DuoNebs [id number], budesonide inhalation, formoterol inhalation, and IV Solu-Medrol. Will broaden empiric antibiotic coverage. Patient did have a hospitalization within the last 90 days and received IV antibiotics at this time. Blood cultures pending. Procalcitonin level ordered. Continue Lasix twice daily. Protonix for GI prophylaxis. Resume Eliquis when able to take orals Overall prognosis is guarded secondary above-mentioned comorbidities. Currently, being monitored in the intensive care unit. Further recommendations to follow. I have personally seen and examined the patient, performed the documentation and the assessment and plan as written. Number of minutes spent on the visit:20 Time with Patient: Greater than 30
[2024-07-02] MEDS: VANCOMYCIN 1,500 MG in SODIUM CHLORIDE 0.9% 500 ML 500 ML IVPB ONE (02:30)
[2024-07-02 06:28] LABS: ABG HCO3 32 mmol/L (21-25); ABG PO2 70 mmHg (83-108); ABG TCO2 34 mmol/L (19-24); Allen Test Performed? Yes
[2024-07-02] MEDS: methylPREDNISolone SOD SUCCI 125 MG/2 ML VIAL IV SCH (06:34)
[2024-07-02 06:37] LABS: ALT 12 U/L (4-34); AST 22 U/L (14-36); African American GFR (CKD) 32 (>60 ml/min/1.73 sqM); Albumin 3.3 g/dL (3.5-5.0); Alkaline Phosphatase 101 U/L (38-126); Anion Gap 7 mmol/L; Blood Urea Nitrogen 50 mg/dL (7-17); Calcium 9.6 mg/dL (8.4-10.2); Carbon Dioxide 31 mmol/L (22-30); Chloride 105 mmol/L (98-107); Glucose 140 mg/dL (74-99); Non-African American GFR(CKD) 28 (>60 ml/min/1.73 sqM); Sodium 143 mmol/L (137-145); Total Bilirubin 1.1 mg/dL (0.2-1.3)
[2024-07-02 06:40] LABS: Basophils % (A) 0 %; Eosinophils % (A) 0 %; HCT 43.4 % (34.0-46.0); Hypochromasia Marked; Lymphocytes # (A) 0.8 k/uL (1.0-4.8); Lymphocytes % (A) 6 %; MCV 103.4 fL (80.0-100.0); Macrocytosis Slight; Mean Platelet Volume 7.7; Monocytes # (A) 0.4 k/uL (0-1.0); Monocytes % (A) 3 %; Neutrophils % (A) 90 %; Platelet Count 296 k/uL (150-450); RDW 13.8 % (11.5-15.5); WBC 13.3 k/uL (3.8-10.6)
[2024-07-02 06:48] LABS: Potassium 6.1 mmol/L (3.5-5.1)
[2024-07-02 07:09] LABS: ABG Oxygen Saturation 99.4 % (94-97); ABG PCO2 87 mmHg (35-45); ABG PH 7.17 (7.35-7.45)
--- NOTE | 2024-07-02 07:30 | XR ---
EXAMINATION TYPE: XR chest 1V DATE OF EXAM: 07/02/2024 COMPARISON: 07/01/2024 HISTORY: 38-year-old female pneumonia TECHNIQUE: Single frontal view of the chest is obtained. FINDINGS: Right heart margin obscured by adjacent pleural parenchymal opacity and now complete white out of the right hemithorax. Left lung and pleural space appear clear. IMPRESSION: Interval worsening now with complete white out of the right hemithorax.
[2024-07-02] MEDS: SODIUM BICARB 8.4% 50 ML SYR (1 MEQ/ML) IV ONE (08:12)
[2024-07-02] MEDS: DEXTROSE 50% SYRINGE 50 ML IVP ONE ×2 (08:12→11:46)
[2024-07-02] MEDS: PANTOPRAZOLE 40 MG/10 ML VIAL IV SCH (08:12)
[2024-07-02] MEDS: FUROSEMIDE 10 MG/ML 4 ML VIAL IV SCH (08:12)
[2024-07-02] MEDS: CALCIUM GLUCONATE IN NACL 1 GM in SALINE 1 100ML.BAG IVPB ONE (08:13)
[2024-07-02] MEDS: INSULIN REGULAR 100 UNIT/ML VIAL (IV) IV ONE (08:23)
[2024-07-02] MEDS: IPRATROPIUM-ALBUTEROL 3 ML NEB INHALATION SCH (08:38)
[2024-07-02] MEDS: BUDESONIDE 1 MG/2 ML NEBU INHALATION SCH (08:38)
[2024-07-02] MEDS: FORMOTEROL FUMARATE 20 MCG/2 ML NEBU INHALATION SCH (08:38)
[2024-07-02] MEDS ORDERED: FUROSEMIDE 20 MG TAB PO SCH (09:00)
[2024-07-02] MEDS ORDERED: FUROSEMIDE 10 MG/ML 4 ML VIAL IV SCH (09:00)
[2024-07-02] MEDS ORDERED: LOSARTAN 25 MG TAB PO SCH (09:00)
[2024-07-02] MEDS ORDERED: AZITHROMYCIN 500 MG in SODIUM CHLORIDE 0.9% 250 ML IVPB SCH (09:00)
[2024-07-02] MEDS: ATORVASTATIN 40 MG TAB PO SCH (09:02)
--- NOTE | 2024-07-02 09:57 | P.NPCON ---
History of Present Illness - Reason for Consult acute renal failure, hyperkalemia - History of Present Illness Reason for consultation: Acute kidney injury and hyperkalemia History of present illness: Patient is a 78-year-old female seen in renal consultation for acute kidney injury and hyperkalemia. Patient's creatinine on admission July 01, 2024 was 1.13 and is up to 1.72 today. Baseline creatinine near 0.8 from April 2024. Patient has history of chronic respiratory failure and is maintained on home oxygen therapy. Patient was admitted in April 2024 with acute COPD exacerbation. This time she was brought to the hospital due to being noncompliant at home with her CPAP. Patient was confused, lethargic and sleepy. She is currently on BiPAP. CT of the chest showed COPD with mild emphysema as well as pulmonary arterial hypertension. Patient is currently receiving IV antibiotics. She is also receiving IV Lasix 40 mg twice daily. She did receive a fluid bolus in the ER. Urine output has been 20 to 25 cc an hour. Not on any vasopressors. Potassium noted to be elevated at 6.1 today. She was on losartan as well as potassium supplementation outpatient. This was medically treated with IV calcium gluconate, IV insulin with D50 as well as sodium bicarb IV push this morning. Vital signs are stable. General: No acute distress. HEENT: On BiPAP. LUNGS: Scattered rhonchi. HEART: Rate and Rhythm are regular. ABDOMEN: No distention. EXTREMITITES: No edema. Past Medical History Past Medical History: Atrial Fibrillation, COPD, Hypertension Additional Past Medical History / Comment(s): COPD, hypertension, secondary pul monary hypertension, chronic hypoxic respiratory failure, chronic atrial fibrillation, hyperlipidemia, obstructive sleep apnea, NSTEMI (01/07/24); cpap at home, not always compliant with cpap History of Any Multi-Drug Resistant Organisms: None Reported Past Surgical History: Heart Catheterization Additional Past Surgical History / Comment(s): Right upper lung lobectomy, hernia repair and the patient has a large anterior abdominal wall incision, hysterectomy, knee surgery, cholecystectomy Past Anesthesia/Blood Transfusion Reactions: No Reported Reaction Smoking Status: Never smoker - Past Family History Mother Family Medical History: Cancer Father Family Medical History: Coronary Artery Disease (CAD) Medications and Allergies Home Medications Medication Instructions Recorded Confirmed Type Apixaban [Eliquis] 2.5 mg PO DAILY 03/18/24 07/01/24 History Atorvastatin [Lipitor] 40 mg PO DAILY 03/18/24 07/01/24 History Budesonide-Formot 160-4.5 Mcg 2 puff INHALATION RT-BID 30 Days 03/23/24 07/01/24 Rx [Symbicort 160-4.5 Mcg Inhaler] #1 each ALPRAZolam [Xanax] 0.25 mg PO DAILY PRN 04/18/24 07/01/24 History Furosemide [Lasix] 20 mg PO DAILY 04/18/24 07/01/24 History Losartan [Cozaar] 25 mg PO DAILY 04/18/24 07/01/24 History Albuterol Nebulized [Ventolin 2.5 mg INHALATION RT-QID 07/01/24 07/01/24 History Nebulized] Potassium Chloride ER [K-Dur 10] 10 meq PO DAILY 07/01/24 07/01/24 History Allergies Allergy/AdvReac Type Severity Reaction Status Date / Time No Known Allergies Allergy Verified 07/01/24 14:27 Physical Exam Vitals: Vital Signs Temp Pulse Resp BP Pulse Ox FiO2 07/02/24 09:00 101 H 14 115/57 93 L 70 07/02/24 08:57 92 07/02/24 08:47 90 07/02/24 08:38 90 07/02/24 08:30 95 18 104/62 90 L 07/02/24 08:17 70 07/02/24 08:00 98.2 F 89 15 117/63 90 L 70 07/02/24 07:30 83 19 108/51 89 L 07/02/24 07:00 90 11 L 111/56 90 L 07/02/24 06:30 104 H 26 H 115/74 07/02/24 06:00 92 22 115/77 74 L 07/02/24 05:30 95 21 121/64 07/02/24 05:00 95 25 H 100 07/02/24 04:30 85 24 117/63 92 L 07/02/24 04:15 70 07/02/24 04:00 98 F 92 20 93 L 07/02/24 03:30 94 21 112/61 89 L 07/02/24 03:00 98 20 111/59 88 L 07/02/24 02:30 98 21 88 L 07/02/24 02:00 86 25 H 88 L 07/02/24 01:30 90 23 111/70 87 L 07/02/24 01:00 82 22 109/67 87 L 07/02/24 00:30 90 24 86/59 87 L 07/02/24 00:23 70 07/02/24 00:00 98.2 F 101 H 21 94/58 86 L 07/01/24 23:30 92 22 100/52 86 L 07/01/24 23:00 85 21 113/63 90 L 07/01/24 22:30 92 23 96/51 90 L 07/01/24 22:00 93 23 93/53 86 L 07/01/24 21:30 81 20 89/52 89 L 07/01/24 21:00 85 22 101/56 86 L 07/01/24 20:30 90 22 97/56 89 L 07/01/24 20:00 97.6 F 94 24 103/59 85 L 07/01/24 19:59 80 07/01/24 19:30 99 20 115/69 85 L 07/01/24 19:00 90 22 120/60 91 L 07/01/24 18:30 98.2 F 86 16 120/60 89 L 80 07/01/24 18:00 86 93/37 91 L 07/01/24 17:30 88 16 90/36 91 L 07/01/24 17:00 96 103/42 91 L 07/01/24 16:30 96 107/56 89 L 07/01/24 15:41 80 07/01/24 15:15 112 H 17 120/62 91 L 07/01/24 15:00 101 H 17 125/58 89 L 07/01/24 14:45 107 H 17 110/43 91 L 07/01/24 14:30 101 H 16 107/45 90 L 07/01/24 14:15 99 15 110/47 91 L 07/01/24 14:00 90 18 115/72 93 L 07/01/24 13:48 70 07/01/24 13:45 99 17 118/46 92 L 70 07/01/24 13:37 80 07/01/24 13:30 101 H 16 128/69 90 L 07/01/24 13:14 111 H 07/01/24 13:04 111 H 07/01/24 12:55 100 08/25/24 12:45 35 H 07/01/24 12:44 97.2 F L 123 H 30 H 136/69 92 L Intake and Output 07/01/24 07/02/24 07/02/24 22:59 06:59 14:59 Intake Total 1200 800 250 Output Total 60 184 142 Balance 1140 616 108 Intake: IV 25 800 50 Piperacillin-Tazobactam 3 100 .375 gm In Sodium Chloride 0.9% 100 ml @ 25 mls/hr IVPB ONCE STA Rx# :[id number] Sodium Chloride 0.9% 1, 25 200 50 000 ml @ 50 mls/hr IV . Q20H [facility] Rx#:[id number] Vancomycin 1,500 mg In 500 Sodium Chloride 0.9% 500 ml 500 ml @ 167 mls/hr IVPB Q24H [facility] Rx#: [id number] Intake, IV Titration 1175 200 Amount Calcium Gluconate in NaCl 100 1 gm In Saline 1 100ml. bag @ 400 mls/hr IVPB ONCE ONE Rx#:[id number] Piperacillin-Tazobactam 3 100 100 .375 gm In Sodium Chloride 0.9% 100 ml @ 25 mls/hr IVPB Q8HR [facility] Rx# :[id number] Sodium Chloride 0.9% 1, 75 000 ml @ 75 mls/hr IV . [id number] [facility] Rx#:[id number] Sodium Chloride 0.9% 1, 1000 000 ml @ 999 mls/hr IV . Q1H1M ONE Rx#:[id number] Output: Urine 60 184 142 Other: Voiding Method Indwelling Catheter Indwelling Catheter Indwelling Catheter Weight 97.976 kg 98.2 kg Results - Lab Results Most recent lab results ABG pH 7.17 (7.35-7.45) L* 07/02/24 06:09 ABG pCO2 87 mmHg (35-45) H* 07/02/24 06:09 ABG pO2 70 mmHg (83-108) L 07/02/24 06:09 ABG HCO3 32 mmol/L (21-25) H 07/02/24 06:09 ABG O2 Saturation 99.4 % (94-97) H 07/02/24 06:09 Calcium 9.6 mg/dL (8.4-10.2) 07/02/24 05:29 Magnesium 2.2 mg/dL (1.6-2.3) 07/01/24 13:00 07/02/24 05:29 07/02/24 05:29 Assessment and Plan Plan: Assessment: 1. Acute kidney injury secondary to hemodynamic ATN. Baseline creatinine 0.8 from April 2024 and is 1.72 today. Urine output 20 to 25 cc an hour. 2. Hyperkalemia secondary to acute kidney injury, losartan and potassium s upplementation. 3. Acute on chronic hypoxic and hypercapnic respiratory failure. On BiPAP. 4. Pneumonia on antibiotics. 5. History of right upper lobe lobectomy. Plan: Maintain IV Lasix for now. Repeat potassium level later this morning. Check renal ultrasound. Hold antihypertensives and potassium supplementation. Continue to monitor renal function and urine output. Wean FiO2. Check echocardiogram. Thank you for the consultation. I will continue to follow the patient with you during her hospital stay.
--- NOTE | 2024-07-02 10:49 | US ---
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 mobility IMPRESSION: Exam limitations as above. No hydronephrosis. Bladder not assessed due to indwelling Martinez catheter.
--- NOTE | 2024-07-02 11:09 | P.PN ---
Subjective Progress Note Date: 07/02/24 This is a pleasant 78 years old female with past medical history of multiple medical problems as below. Patient presents because of altered mental status. Patient cannot provide information it was obtained from the family at bedside and records. As per and family patient was not using her BiPAP and she was sleeping most of the time yesterday around 22 hours, family got concerned and brought her to the hospital today. Patient is completely confused and cannot provide information and she has evidence of acute COPD exacerbations and she was admitted to the intensive care unit for this reason. No other information is available at now. Patient was mildly hypothermic 97.2, she is breathing fast at 30, tachycardic but blood pressure stable at 136/69. Labs reviewed showing WBC 21,000, rest of CBC is unremarkable Sodium 139, potassium 5.4. Creatinine is 1.1 pH is low 7.1, pCO2 is elevated at 98 and low pO2 at 80. Liver enzymes unremarkable Chest x-ray showing right lower lobe infiltrate. Patient is DNR and DNI and this confirmed with the family. Patient is going to be admitted to the ICU ct of brain: no acute process. Moderate to severe chronic small vessel ischemic disease. ct of chest: extensive consolidation and collapse pf the right mid and lower lung and fluid collection in RUL 07/02. Patient seen and examined. Currently on BiPAP. States she feels slightly better. Gets short of breath on minimal exertion. Labs done this morning showed WBC 13.3, hemoglobin 13, platelet count 296 sodium 143, potassium 6.1, BUN 50, creatinine 1.72 REVIEW OF SYSTEMS: Cannot be obtained as patient is on BiPAP PHYSICAL EXAMINATION: GENERAL: The patient is alert and oriented x3, ill looking, on BiPAP HEENT: Pupils are round and equally reacting to light. EOMI. No scleral icterus. No conjunctival pallor. Normocephalic, atraumatic. No pharyngeal erythema. No thyromegaly. CARDIOVASCULAR: S1 and S2 present. No murmurs, rubs, or gallops. PULMONARY: Chest is clear to auscultation, no wheezing or crackles. ABDOMEN: Soft, nontender, nondistended, normoactive bowel sounds. No palpable organomegaly. MUSCULOSKELETAL: No joint swelling or deformity. EXTREMITIES: No cyanosis, clubbing, or pedal edema. NEUROLOGICAL: Gross neurological examination did not reveal any focal deficits. SKIN: No rashes. Assessment and plan Acute COPD exacerbation Acute hypoxic hypercapnic respiratory failure Acute respiratory acidosis Hyperkalemia Acute kidney injury Hypertension Pulmonary hypertension Chronic hypoxic respiratory failure Chronic atrial fibrillation Hyperlipidemia History of obstructive sleep apnea History of coronary artery disease s/p cardiac cath Monitor vital signs Monitor CBC Monitor CMP Continue telemetry monitoring Continue bronchopulmonary hygiene Continues with BiPAP as needed Hyperkalemia protocol initiated Strict I's and O's, daily Lasix 2D echo ordered Continue IV Zosyn and vancomycin Nephrology following Pulmonology following ID consult Labs and medication were reviewed.. Continue same treatment. Continue with symptomatic treatment. Resume home medication. Monitor labs and vitals. DVT and GI prophylaxis. Further recommendations as per clinical course of the patient Dictation was produced using [employer] dictation software. please excuse any grammatical, word or spelling errors. Objective - Vital Signs Vital signs: Vital Signs Temp 98.2 F 07/02/24 08:00 Pulse 99 07/02/24 10:00 Resp 22 07/02/24 10:00 BP 113/61 07/02/24 10:00 Pulse Ox 93 L 07/02/24 10:00 FiO2 70 07/02/24 10:00 Intake & Output 07/01/24 07/02/24 07/02/24 18:59 06:59 18:59 Intake Total 1175 825 250 Output Total 30 214 142 Balance 1145 611 108 Weight 97.976 kg 98.2 kg Intake: IV 825 50 Piperacillin-Tazobactam 3 100 .375 gm In Sodium Chloride 0.9% 100 ml @ 25 mls/hr IVPB ONCE STA Rx# :[id number] Sodium Chloride 0.9% 1, 225 50 000 ml @ 50 mls/hr IV . Q20H [facility] Rx#:[id number] Vancomycin 1,500 mg In 500 Sodium Chloride 0.9% 500 ml 500 ml @ 167 mls/hr IVPB Q24H [facility] Rx#: [id number] Intake, IV Titration 1175 200 Amount Calcium Gluconate in NaCl 100 1 gm In Saline 1 100ml. bag @ 400 mls/hr IVPB ONCE ONE Rx#:[id number] Piperacillin-Tazobactam 3 100 100 .375 gm In Sodium Chloride 0.9% 100 ml @ 25 mls/hr IVPB Q8HR [facility] Rx# :[id number] Sodium Chloride 0.9% 1, 75 000 ml @ 75 mls/hr IV . [id number] [facility] Rx#:[id number] Sodium Chloride 0.9% 1, 1000 000 ml @ 999 mls/hr IV . Q1H1M ONE Rx#:[id number] Output: Urine 30 214 142 Other: Voiding Method Indwelling Catheter Indwelling Catheter - Labs CBC & Chem 7: 07/02/24 05:29 07/02/24 05:29 Labs: Abnormal Lab Results - Last 24 Hours (Table) 07/01/24 07/01/24 07/01/24 Range/Units 13:00 13:00 13:22 WBC 21.5 H (3.8-10.6) k/uL MCV 102.1 H (80.0-100.0) fL MCHC 30.1 L (31.0-37.0) g/dL Neutrophils # 17.8 H (1.3-7.7) k/uL Lymphocytes # (1.0-4.8) k/uL Monocytes # 1.1 H (0-1.0) k/uL ABG pH 7.12 L* (7.35-7.45) ABG pCO2 >98 H* (35-45) mmHg ABG pO2 80 L (83-108) mmHg ABG HCO3 (21-25) mmol/L ABG Total CO2 (19-24) mmol/L ABG O2 Saturation 93.6 L (94-97) % Potassium 5.4 H (3.5-5.1) mmol/L Carbon Dioxide 35 H (22-30) mmol/L BUN 37 H (7-17) mg/dL Creatinine 1.13 H (0.52-1.04) mg/dL Glucose 140 H (74-99) mg/dL POC Glucose (mg/dL) (70-110) mg/dL Total Protein (6.3-8.2) g/dL Albumin (3.5-5.0) g/dL Procalcitonin (0.02-0.50) ng/mL Urine Appearance (Clear) Urine Protein (Negative) Ur Squamous Epith Cells (0-4) /hpf Urine Mucus (None) /hpf 07/01/24 07/01/24 07/02/24 Range/Units 13:37 18:27 01:15 WBC (3.8-10.6) k/uL MCV (80.0-100.0) fL MCHC (31.0-37.0) g/dL Neutrophils # (1.3-7.7) k/uL Lymphocytes # (1.0-4.8) k/uL Monocytes # (0-1.0) k/uL ABG pH (7.35-7.45) ABG pCO2 (35-45) mmHg ABG pO2 (83-108) mmHg ABG HCO3 (21-25) mmol/L ABG Total CO2 (19-24) mmol/L ABG O2 Saturation (94-97) % Potassium (3.5-5.1) mmol/L Carbon Dioxide (22-30) mmol/L BUN (7-17) mg/dL Creatinine (0.52-1.04) mg/dL Glucose (74-99) mg/dL POC Glucose (mg/dL) 156 H (70-110) mg/dL Total Protein (6.3-8.2) g/dL Albumin (3.5-5.0) g/dL Procalcitonin 0.60 H (0.02-0.50) ng/mL Urine Appearance Cloudy H (Clear) Urine Protein 2+ H (Negative) Ur Squamous Epith Cells 9 H (0-4) /hpf Urine Mucus Few H (None) /hpf 07/02/24 07/02/24 07/02/24 Range/Units 05:29 05:29 06:09 WBC 13.3 H (3.8-10.6) k/uL MCV 103.4 H (80.0-100.0) fL MCHC 30.0 L (31.0-37.0) g/dL Neutrophils # 12.0 H (1.3-7.7) k/uL Lymphocytes # 0.8 L (1.0-4.8) k/uL Monocytes # (0-1.0) k/uL ABG pH 7.17 L* (7.35-7.45) ABG pCO2 87 H* (35-45) mmHg ABG pO2 70 L (83-108) mmHg ABG HCO3 32 H (21-25) mmol/L ABG Total CO2 34 H (19-24) mmol/L ABG O2 Saturation 99.4 H (94-97) % Potassium 6.1 H* (3.5-5.1) mmol/L Carbon Dioxide 31 H (22-30) mmol/L BUN 50 H (7-17) mg/dL Creatinine 1.72 H (0.52-1.04) mg/dL Glucose 140 H (74-99) mg/dL POC Glucose (mg/dL) (70-110) mg/dL Total Protein 6.0 L (6.3-8.2) g/dL Albumin 3.3 L (3.5-5.0) g/dL Procalcitonin (0.02-0.50) ng/mL Urine Appearance (Clear) Urine Protein (Negative) Ur Squamous Epith Cells (0-4) /hpf Urine Mucus (None) /hpf
[2024-07-02 11:17] LABS: Glucose,Whole Blood 152 mg/dL (70-110)
[2024-07-02] MEDS: FORMOTEROL FUMARATE 20 MCG/2 ML NEBU INHALATION ONE (11:47)
[2024-07-02] MEDS: IPRATROPIUM-ALBUTEROL 3 ML NEB ONE (11:47)
[2024-07-02] MEDS: BUDESONIDE 1 MG/2 ML NEBU INHALATION ONE (11:47)
[2024-07-02] MEDS: SODIUM BICARB 8.4% 50 ML SYR (1 MEQ/ML) ONE (11:47)
[2024-07-02] MEDS: PANTOPRAZOLE 40 MG/10 ML VIAL ONE (11:47)
[2024-07-02] MEDS: FUROSEMIDE 10 MG/ML 4 ML VIAL ONE (11:47)
[2024-07-02 12:02] LABS: Potassium 5.1 mmol/L (3.5-5.1)
--- NOTE | 2024-07-02 13:55 | CA ---
Transthoracic Echo Report Name: Renuka Wolf Age: 78 Gender: F : 1945 Exam Date: 07/02/2024 10:42 Exam Location: [facility] Ht (in): 66 Wt (lb): 216 Ordering Physician: Jayy Horton DO Attending/Referring Phys: Transmission Supervisor Alysia Redd RDCS Procedure CPT: Indications: chf Cardiac Hx: Technical Quality: Fair Contrast 1: Total Dose (mL): Contrast 2: Total Dose (mL): MEASUREMENTS (Male / Female) Normal Values 2D ECHO LV Diastolic Diameter PLAX 3.8 cm 4.2 - 5.9 / 3.9 - 5.3 cm LV Systolic Diameter PLAX 2.3 cm IVS Diastolic Thickness 0.8 cm 0.6 - 1.0 / 0.6 - 0.9 cm LVPW Diastolic Thickness 1.0 cm 0.6 - 1.0 / 0.6 - 0.9 cm LV Relative Wall Thickness 0.5 RV Internal Dim ED PLAX 4.0 cm LVOT Diameter 2.0 cm M-MODE LV Diastolic Diameter MM 3.0 cm 4.2 - 5.9 / 3.9 - 5.3 cm LV Systolic Diameter MM 1.7 cm LV Cardiac Index MM Teich 1374.2 cm???/min???m??? IVS Diastolic Thickness MM 1.2 cm 0.6 - 1.0 / 0.6 - 0.9 cm LVPW Diastolic Thickness MM 1.4 cm 0.6 - 1.0 / 0.6 - 0.9 cm LV Relative Wall Thickness MM 0.9 0.24 - 0.42 / 0.22 - 0.42 LV Mass Index MM 58.8 g/m??? 49 - 115 / 43 - 95 g/m??? DOPPLER AV Peak Velocity 144.8 cm/s AV Peak Gradient 8.4 mmHg AV Mean Velocity 100.7 cm/s AV Mean Gradient 4.6 mmHg AV Velocity Time Integral 24.5 cm LVOT Peak Velocity 113.5 cm/s LVOT Peak Gradient 5.2 mmHg LVOT Velocity Time Integral 16.7 cm LVOT Stroke Volume 52.7 cm??? LVOT Stroke Volume Index 25.5 ml/m??? LVOT Cardiac Index 2665.6 cm???/min???m??? AV Area Cont Eq vti 2.1 cm??? AV Area Cont Eq pk 2.5 cm??? TR Peak Velocity 381.5 cm/s TR Peak Gradient 58.2 mmHg Right Atrial Pressure 10.0 mmHg Pulmonary Artery Systolic Pressu 68.2 mmHg Right Ventricular Systolic Press 68.2 mmHg FINDINGS Left Ventricle Left ventricular ejection fraction is estimated at 65-70 %. Mildly increased septal wall thickness. Moderately increased posterior wall thickness. Severely decreased midwall fractional shortening. Severely increased left ventricular relative wall thickness. No obvious regional wall motion abnormalities. Hyperdynamic left ventricular systolic function. Indeterminate diastolic dysfunction. Right Ventricle Severe right ventricular dilatation. Severe pulmonary hypertension. Right ventricular systolic pressure estimated at 68mm hg. Right Atrium Severe right atrial dilatation. Left Atrium Mildly increased left atrial area. Mitral Valve Structurally normal mitral valve. No evidence for mitral valve prolapse. No mitral stenosis. Trace mitral regurgitation. Aortic Valve Trileaflet aortic valve. No aortic valve stenosis or regurgitation. Tricuspid Valve Structurally normal tricuspid valve. No tricuspid stenosis. Moderate tricuspid regurgitation. Pulmonic Valve Pulmonic valve not well visualized. No pulmonic stenosis. No pulmonic regurgitation. Pericardium No pericardial effusion. Aorta Aortic annulus normal. Ascending aorta not well visualized. CONCLUSIONS Left ventricular ejection fraction 65-70% Mild to moderately increased left ventricular wall thickness Severe right ventricular dilation with mild right ventricular hypokinesis RVSP 68 Severe right atrial dilation Mild left atrial dilation Trace mitral regurgitation Moderate tricuspid regurgitation Previewed by: Dr. Bernard Anderson DO (Electronically Signed) Final Date: 02 July 2024 13:54
[2024-07-02 16:15] LABS: Glucose,Whole Blood 147 mg/dL (70-110)
[2024-07-02] MEDS: VANCOMYCIN 1,500 MG in SODIUM CHLORIDE 0.9% 500 ML 500 ML IVPB SCH (21:32)
[2024-07-02] MEDS: IPRATROPIUM-ALBUTEROL 3 ML NEB INHALATION PRN (23:59)
[2024-07-03 06:19] LABS: Basophils % (A) 0 %; Eosinophils % (A) 0 %; HCT 37.5 % (34.0-46.0); Hypochromasia Marked; Lymphocytes # (A) 0.4 k/uL (1.0-4.8); Lymphocytes % (A) 4 %; MCH 30.1 pg (25.0-35.0); MCHC 29.2 g/dL (31.0-37.0); Macrocytosis Slight; Mean Platelet Volume 7.2; Monocytes # (A) 0.5 k/uL (0-1.0); Monocytes % (A) 4 %; Neutrophils # (A) 10.1 k/uL (1.3-7.7); Neutrophils % (A) 92 %; Platelet Count 337 k/uL (150-450); RBC 3.64 m/uL (3.80-5.40); RDW 13.5 % (11.5-15.5)
[2024-07-03 06:48] LABS: African American GFR (CKD) 26 (>60 ml/min/1.73 sqM); Anion Gap 6 mmol/L; Blood Urea Nitrogen 63 mg/dL (7-17); Calcium 9.9 mg/dL (8.4-10.2); Carbon Dioxide 35 mmol/L (22-30); Chloride 105 mmol/L (98-107); Glucose 163 mg/dL (74-99); Non-African American GFR(CKD) 23 (>60 ml/min/1.73 sqM); Potassium 4.7 mmol/L (3.5-5.1); Sodium 146 mmol/L (137-145)
--- NOTE | 2024-07-03 07:37 | XR ---
EXAMINATION TYPE: XR chest 1V portable DATE OF EXAM: 07/03/2024 Comparison: 07/02/2024 Clinical History: 78-year-old female right lung opacification Findings: Right heart margin obscured by adjacent pleural parenchymal opacity. There is ongoing complete white out of the right hemithorax. There appears to be prior right-sided thoracotomy change. Impression: Ongoing complete white out of the right hemithorax.
--- NOTE | 2024-07-03 08:14 | P.CONS ---
History of Present Illness - Reason for Consult Consult date: 07/02/24 Sepsis, pneumonia Requesting physician: Joo Henson - Chief Complaint Increasing shortness of breath and cough x few days - History of Present Illness Patient is a 78-year female with a past medical history significant for hypertension COPD atrial fibrillation, obstructive sleep apnea and recent admission to the hospital April 2024 for COPD exacerbation patient has been brought into the ER by EMS as the patient was noticed to be lethargic and sleepy at home patient was noted to be short of breath on arrival to the ER and was placed on a nonrebreather subsequently the patient has been admitted to the ICU on a BiPAP patient on presentation to the hospital was afebrile and no fever have been called subsequently patient was tachycardic but not hypotensive or n eed for pressors,She was hypoxic currently on the BiPAP did have a white count 21.5, BUN and creatinine has been mildly elevated procalcitonin 0.60 UA was negative patient tested negative for influenza COVID and RSV did have a chest x- ray moderate to large right effusion with adjacent atelectasis/consolidation also have this CT of the chest extensive consolidation and collapse throughout the right upper and lower lung and right effusion patient was started on vancomycin and Zosyn infectious disease was consulted for further management of antibiotic therapy patient is currently on a BiPAP and is very hard to get history has been complaining of shortness of breath did have a cough not bring up any sputum also complaining of feeling thirsty and wants to drink Review of Systems Positive point and negatives has been mentioned in the HPI, complete review of systems was performed and all other systems are negative Past Medical History Past Medical History: Atrial Fibrillation, COPD, Hypertension Additional Past Medical History / Comment(s): COPD, hypertension, secondary pulmonary hypertension, chronic hypoxic respiratory failure, chronic atrial fibrillation, hyperlipidemia, obstructive sleep apnea, NSTEMI (01/07/24); cpap at home, not always compliant with cpap History of Any Multi-Drug Resistant Organisms: None Reported Past Surgical History: Heart Catheterization Additional Past Surgical History / Comment(s): Right upper lung lobectomy, hernia repair and the patient has a large anterior abdominal wall incision, h ysterectomy, knee surgery, cholecystectomy Past Anesthesia/Blood Transfusion Reactions: No Reported Reaction Smoking Status: Never smoker - Past Family History Mother Family Medical History: Cancer Father Family Medical History: Coronary Artery Disease (CAD) Medications and Allergies Home Medications Medication Instructions Recorded Confirmed Type Apixaban [Eliquis] 2.5 mg PO DAILY 03/18/24 07/01/24 History Atorvastatin [Lipitor] 40 mg PO DAILY 03/18/24 07/01/24 History Budesonide-Formot 160-4.5 Mcg 2 puff INHALATION RT-BID 30 Days 03/23/24 07/01/24 Rx [Symbicort 160-4.5 Mcg Inhaler] #1 each ALPRAZolam [Xanax] 0.25 mg PO DAILY PRN 04/18/24 07/01/24 History Furosemide [Lasix] 20 mg PO DAILY 04/18/24 07/01/24 History Losartan [Cozaar] 25 mg PO DAILY 04/18/24 07/01/24 History Albuterol Nebulized [Ventolin 2.5 mg INHALATION RT-QID 07/01/24 07/01/24 History Nebulized] Potassium Chloride ER [K-Dur 10] 10 meq PO DAILY 07/01/24 07/01/24 History Allergies Allergy/AdvReac Type Severity Reaction Status Date / Time No Known Allergies Allergy Verified 07/01/24 14:27 Physical Exam Vitals: Vital Signs Temp Pulse Resp BP Pulse Ox FiO2 07/02/24 12:30 101 H 13 119/65 91 L 07/02/24 12:03 112 H 07/02/24 12:00 97.1 F L 112 H 12 114/57 92 L 07/02/24 11:57 70 07/02/24 11:49 112 H 70 07/02/24 11:30 102 H 12 125/70 91 L 07/02/24 11:00 108 H 18 115/73 91 L 70 07/02/24 10:30 104 H 18 113/69 92 L 07/02/24 10:00 99 22 113/61 93 L 70 07/02/24 09:30 97 14 112/63 92 L 07/02/24 09:00 101 H 14 115/57 93 L 70 07/02/24 08:57 92 07/02/24 08:47 90 07/02/24 08:38 90 07/02/24 08:30 95 18 104/62 90 L 07/02/24 08:17 70 07/02/24 08:00 98.2 F 89 15 117/63 90 L 70 07/02/24 07:30 83 19 108/51 89 L 07/02/24 07:00 90 11 L 111/56 90 L 07/02/24 06:30 104 H 26 H 115/74 07/02/24 06:00 92 22 115/77 74 L 07/02/24 05:30 95 21 121/64 07/02/24 05:00 95 25 H 100 07/02/24 04:30 85 24 117/63 92 L 07/02/24 04:15 70 07/02/24 04:00 98 F 92 20 93 L 07/02/24 03:30 94 21 112/61 89 L 07/02/24 03:00 98 20 111/59 88 L 07/02/24 02:30 98 21 88 L 07/02/24 02:00 86 25 H 88 L 07/02/24 01:30 90 23 111/70 87 L 07/02/24 01:00 82 22 109/67 87 L 07/02/24 00:30 90 24 86/59 87 L 07/02/24 00:23 70 07/02/24 00:00 98.2 F 101 H 21 94/58 86 L 07/01/24 23:30 92 22 100/52 86 L 07/01/24 23:00 85 21 113/63 90 L 07/01/24 22:30 92 23 96/51 90 L 07/01/24 22:00 93 23 93/53 86 L 07/01/24 21:30 81 20 89/52 89 L 07/01/24 21:00 85 22 101/56 86 L 07/01/24 20:30 90 22 97/56 89 L 07/01/24 20:00 97.6 F 94 24 103/59 85 L 07/01/24 19:59 80 07/01/24 19:30 99 20 115/69 85 L 07/01/24 19:00 90 22 120/60 91 L 07/01/24 18:30 98.2 F 86 16 120/60 89 L 80 07/01/24 18:00 86 93/37 91 L 07/01/24 17:30 88 16 90/36 91 L 07/01/24 17:00 96 103/42 91 L 07/01/24 16:30 96 107/56 89 L 07/01/24 15:41 80 07/01/24 15:15 112 H 17 120/62 91 L 07/01/24 15:00 101 H 17 125/58 89 L 07/01/24 14:45 107 H 17 110/43 91 L 07/01/24 14:30 101 H 16 107/45 90 L 07/01/24 14:15 99 15 110/47 91 L 07/01/24 14:00 90 18 115/72 93 L 07/01/24 13:48 70 07/01/24 13:45 99 17 118/46 92 L 70 07/01/24 13:37 80 07/01/24 13:30 101 H 16 128/69 90 L 07/01/24 13:14 111 H 07/01/24 13:04 111 H 07/01/24 12:55 100 07/01/24 12:45 35 H 07/01/24 12:44 97.2 F L 123 H 30 H 136/69 92 L Intake and Output 07/01/24 07/02/24 07/02/24 22:59 06:59 14:59 Intake Total 1200 800 400 Output Total 60 184 282 Balance 1140 616 118 Intake: IV 25 800 200 Piperacillin-Tazobactam 3 100 .375 gm In Sodium Chloride 0.9% 100 ml @ 25 mls/hr IVPB ONCE [facility] Rx# :[id number] Sodium Chloride 0.9% 1, 25 200 200 000 ml @ 50 mls/hr IV . Q20H [facility] Rx#:[id number] Vancomycin 1,500 mg In 500 Sodium Chloride 0.9% 500 ml 500 ml @ 167 mls/hr IVPB Q24H [facility] Rx#: [id number] Intake, IV Titration 1175 200 Amount Calcium Gluconate in NaCl 100 1 gm In Saline 1 100ml. bag @ 400 mls/hr IVPB ONCE ONE Rx#:[id number] Piperacillin-Tazobactam 3 100 100 .375 gm In Sodium Chloride 0.9% 100 ml @ 25 mls/hr IVPB Q8HR [facility] Rx# :[id number] Sodium Chloride 0.9% 1, 75 000 ml @ 75 mls/hr IV . [id number] [facility] Rx#:[id number] Sodium Chloride 0.9% 1, 1000 000 ml @ 999 mls/hr IV . Q1H1M [facility] Rx#:[id number] Output: Urine 60 184 282 Other: Voiding Method Indwelling Catheter Indwelling Catheter Indwelling Catheter Weight 97.976 kg 98.2 kg GENERAL DESCRIPTION: Elderly female lying in bed, no distress. No tachypnea or accessory muscle of respiration use. HEENT: Shows Pallor , no scleral icterus. Oral mucous membrane is dry. No pharyngeal erythema or thrush NECK: Trachea central, no thyromegaly. LUNGS: Unlabored breathing. Coarse breath sounds bilaterally HEART: S1, S2, regular rate and rhythm. No loud murmur ABDOMEN: Soft, no tenderness , guarding or rigidity, no organomegaly EXTREMITIES: No edema of feet. SKIN: No rash, no masses palpable. NEUROLOGICAL: The patient is awake, alert, mood and affect normal. Results CBC & Chem 7: 07/03/24 05:34 07/03/24 05:34 Labs: Abnormal Lab Results - Last 24 Hours (Table) 07/01/24 07/01/24 07/01/24 Range/Units 13:00 13:00 13:22 WBC 21.5 H (3.8-10.6) k/uL MCV 102.1 H (80.0-100.0) fL MCHC 30.1 L (31.0-37.0) g/dL Neutrophils # 17.8 H (1.3-7.7) k/uL Lymphocytes # (1.0-4.8) k/uL Monocytes # 1.1 H (0-1.0) k/uL ABG pH 7.12 L* (7.35-7.45) ABG pCO2 >98 H* (35-45) mmHg ABG pO2 80 L (83-108) mmHg ABG HCO3 (21-25) mmol/L ABG Total CO2 (19-24) mmol/L ABG O2 Saturation 93.6 L (94-97) % Potassium 5.4 H (3.5-5.1) mmol/L Carbon Dioxide 35 H (22-30) mmol/L BUN 37 H (7-17) mg/dL Creatinine 1.13 H (0.52-1.04) mg/dL Glucose 140 H (74-99) mg/dL POC Glucose (mg/dL) (70-110) mg/dL Total Protein (6.3-8.2) g/dL Albumin (3.5-5.0) g/dL Procalcitonin (0.02-0.50) ng/mL Urine Appearance (Clear) Urine Protein (Negative) Ur Squamous Epith Cells (0-4) /hpf Urine Mucus (None) /hpf 07/01/24 07/01/24 07/02/24 Range/Units 13:37 18:27 01:15 WBC (3.8-10.6) k/uL MCV (80.0-100.0) fL MCHC (31.0-37.0) g/dL Neutrophils # (1.3-7.7) k/uL Lymphocytes # (1.0-4.8) k/uL Monocytes # (0-1.0) k/uL ABG pH (7.35-7.45) ABG pCO2 (35-45) mmHg ABG pO2 (83-108) mmHg ABG HCO3 (21-25) mmol/L ABG Total CO2 (19-24) mmol/L ABG O2 Saturation (94-97) % Potassium (3.5-5.1) mmol/L Carbon Dioxide (22-30) mmol/L BUN (7-17) mg/dL Creatinine (0.52-1.04) mg/dL Glucose (74-99) mg/dL POC Glucose (mg/dL) 156 H (70-110) mg/dL Total Protein (6.3-8.2) g/dL Albumin (3.5-5.0) g/dL Procalcitonin 0.60 H (0.02-0.50) ng/mL Urine Appearance Cloudy H (Clear) Urine Protein 2+ H (Negative) Ur Squamous Epith Cells 9 H (0-4) /hpf Urine Mucus Few H (None) /hpf 07/02/24 07/02/24 07/02/24 Range/Units 05:29 05:29 06:09 WBC 13.3 H (3.8-10.6) k/uL MCV 103.4 H (80.0-100.0) fL MCHC 30.0 L (31.0-37.0) g/dL Neutrophils # 12.0 H (1.3-7.7) k/uL Lymphocytes # 0.8 L (1.0-4.8) k/uL Monocytes # (0-1.0) k/uL ABG pH 7.17 L* (7.35-7.45) ABG pCO2 87 H* (35-45) mmHg ABG pO2 70 L (83-108) mmHg ABG HCO3 32 H (21-25) mmol/L ABG Total CO2 34 H (19-24) mmol/L ABG O2 Saturation 99.4 H (94-97) % Potassium 6.1 H* (3.5-5.1) mmol/L Carbon Dioxide 31 H (22-30) mmol/L BUN 50 H (7-17) mg/dL Creatinine 1.72 H (0.52-1.04) mg/dL Glucose 140 H (74-99) mg/dL POC Glucose (mg/dL) (70-110) mg/dL Total Protein 6.0 L (6.3-8.2) g/dL Albumin 3.3 L (3.5-5.0) g/dL Procalcitonin (0.02-0.50) ng/mL Urine Appearance (Clear) Urine Protein (Negative) Ur Squamous Epith Cells (0-4) /hpf Urine Mucus (None) /hpf 07/02/24 07/02/24 Range/Units 10:45 11:16 WBC (3.8-10.6) k/uL MCV (80.0-100.0) fL MCHC (31.0-37.0) g/dL Neutrophils # (1.3-7.7) k/uL Lymphocytes # (1.0-4.8) k/uL Monocytes # (0-1.0) k/uL ABG pH (7.35-7.45) ABG pCO2 (35-45) mmHg ABG pO2 (83-108) mmHg ABG HCO3 (21-25) mmol/L ABG Total CO2 (19-24) mmol/L ABG O2 Saturation (94-97) % Potassium (3.5-5.1) mmol/L Carbon Dioxide 31 H (22-30) mmol/L BUN (7-17) mg/dL Creatinine (0.52-1.04) mg/dL Glucose (74-99) mg/dL POC Glucose (mg/dL) 152 H (70-110) mg/dL Total Protein (6.3-8.2) g/dL Albumin (3.5-5.0) g/dL Procalcitonin (0.02-0.50) ng/mL Urine Appearance (Clear) Urine Protein (Negative) Ur Squamous Epith Cells (0-4) /hpf Urine Mucus (None) /hpf Assessment and Plan (1) Pneumonia Current Visit: Yes Status: Acute Code(s): J18.9 - PNEUMONIA, UNSPECIFIED ORGANISM SNOMED Code(s): 616354650 (2) Sepsis Current Visit: Yes Status: Acute Code(s): A41.9 - SEPSIS, UNSPECIFIED ORGANISM SNOMED Code(s): 22989851 (3) Leukocytosis Current Visit: No Status: Acute Code(s): D72.829 - ELEVATED WHITE BLOOD CELL COUNT, UNSPECIFIED SNOMED Code(s): 136400670 Plan: 1patient presented to hospital with sepsis in this patient who did have elevated white count tachycardia source is likely pneumonia with evidence of right-sided consolidation question of aspiration/gram-negative as the patient has been in and out of the hospital, gram-positive infection not entirely excluded 2-patient did have a mild renal insufficiency high risk of nephrotoxicity 3-try to obtain sputum for Gram stain culture to narrow down her antibiotics 4-continue with the vancomycin pharmacy to dose and Zosyn however if any worsening of the creatinine would recommend to discontinue the vancomycin We will follow on clinical condition and cultures to further adjust medication if needed Thank you for this consultation we will follow the patient along with you Dictation was produced using [employer] dictation software. please excuse any grammatical, word or spelling errors. Time with Patient: Greater than 30
[2024-07-03] MEDS: ENOXAPARIN 40 MG/0.4 ML SYRINGE SQ SCH (09:24)
[2024-07-03] MEDS: DEXTROSE 5% IN WATER 1,000 ML IV SCH (09:37)
[2024-07-03 09:52] LABS: ABG Base Excess 7.2 mmol/L; ABG HCO3 36 mmol/L (21-25); ABG Oxygen Saturation 92.7 % (94-97); ABG PH 7.29 (7.35-7.45); ABG PO2 67 mmHg (83-108); ABG TCO2 38 mmol/L (19-24); Allen Test Performed? Yes
[2024-07-03 10:03] LABS: ABG PCO2 75 mmHg (35-45)
--- NOTE | 2024-07-03 10:20 | P.PN ---
Subjective Patient is seen in follow-up for acute kidney injury. Creatinine 2.05 today. Sodium level 146. Nonoliguric. Currently off diuretics. On BiPAP. Vital signs are stable. General: No acute distress. HEENT: Head exam is unremarkable. On BiPAP. LUNGS: Scattered rhonchi. HEART: Rate and Rhythm are regular. ABDOMEN: No distention. EXTREMITITES: No edema. Objective - Vital Signs Vital signs: Vital Signs Temp 98.2 F 07/03/24 04:00 Pulse 101 H 07/03/24 08:06 Resp 9 L 07/03/24 07:00 BP 142/96 07/03/24 07:00 Pulse Ox 94 L 07/03/24 07:00 FiO2 69 07/03/24 08:06 Intake & Output 07/02/24 07/03/24 07/03/24 18:59 06:59 18:59 Intake Total 800 950 10 Output Total 442 443 35 Balance 358 507 -25 Weight 98.2 kg 94.8 kg Intake: IV 500 950 10 Invasive Line 3 10 Invasive Line 5 10 Piperacillin-Tazobactam 3 200 .375 gm In Sodium Chloride 0.9% 100 ml @ 25 mls/hr IVPB ONCE STA Rx# :[id number] Sodium Chloride 0.9% 1, 500 230 10 000 ml @ 50 mls/hr IV . Q20H [facility] Rx#:[id number] Vancomycin 1,500 mg In 500 Sodium Chloride 0.9% 500 ml 500 ml @ 167 mls/hr IVPB Q24H [facility] Rx#: [id number] Intake, IV Titration 300 Amount Calcium Gluconate in NaCl 100 1 gm In Saline 1 100ml. bag @ 400 mls/hr IVPB ONCE ONE Rx#:[id number] Piperacillin-Tazobactam 3 200 .375 gm In Sodium Chloride 0.9% 100 ml @ 25 mls/hr IVPB Q8HR [facility] Rx# :[id number] Output: Urine 442 443 35 Other: Voiding Method Indwelling Catheter Indwelling Catheter - Labs CBC & Chem 7: 07/03/24 05:34 07/03/24 05:34 Labs: Abnormal Lab Results - Last 24 Hours (Table) 07/02/24 07/02/24 07/02/24 Range/Units 10:45 11:16 16:14 WBC (3.8-10.6) k/uL RBC (3.80-5.40) m/uL Hgb (11.4-16.0) gm/dL MCV (80.0-100.0) fL MCHC (31.0-37.0) g/dL Neutrophils # (1.3-7.7) k/uL Lymphocytes # (1.0-4.8) k/uL ABG pH (7.35-7.45) ABG pCO2 (35-45) mmHg ABG pO2 (83-108) mmHg ABG HCO3 (21-25) mmol/L ABG Total CO2 (19-24) mmol/L ABG O2 Saturation (94-97) % Sodium (137-145) mmol/L Carbon Dioxide 31 H (22-30) mmol/L BUN (7-17) mg/dL Creatinine (0.52-1.04) mg/dL Glucose (74-99) mg/dL POC Glucose (mg/dL) 152 H 147 H (70-110) mg/dL Procalcitonin (0.02-0.50) ng/mL 07/03/24 07/03/24 07/03/24 Range/Units 05:34 05:34 05:34 WBC 11.0 H (3.8-10.6) k/uL RBC 3.64 L (3.80-5.40) m/uL Hgb 11.0 L (11.4-16.0) gm/dL MCV 103.0 H (80.0-100.0) fL MCHC 29.2 L (31.0-37.0) g/dL Neutrophils # 10.1 H (1.3-7.7) k/uL Lymphocytes # 0.4 L (1.0-4.8) k/uL ABG pH (7.35-7.45) ABG pCO2 (35-45) mmHg ABG pO2 (83-108) mmHg ABG HCO3 (21-25) mmol/L ABG Total CO2 (19-24) mmol/L ABG O2 Saturation (94-97) % Sodium 146 H (137-145) mmol/L Carbon Dioxide 35 H (22-30) mmol/L BUN 63 H (7-17) mg/dL Creatinine 2.05 H (0.52-1.04) mg/dL Glucose 163 H (74-99) mg/dL POC Glucose (mg/dL) (70-110) mg/dL Procalcitonin 0.56 H (0.02-0.50) ng/mL 07/03/24 Range/Units 09:49 WBC (3.8-10.6) k/uL RBC (3.80-5.40) m/uL Hgb (11.4-16.0) gm/dL MCV (80.0-100.0) fL MCHC (31.0-37.0) g/dL Neutrophils # (1.3-7.7) k/uL Lymphocytes # (1.0-4.8) k/uL ABG pH 7.29 L (7.35-7.45) ABG pCO2 75 H* (35-45) mmHg ABG pO2 67 L (83-108) mmHg ABG HCO3 36 H (21-25) mmol/L ABG Total CO2 38 H (19-24) mmol/L ABG O2 Saturation 92.7 L (94-97) % Sodium (137-145) mmol/L Carbon Dioxide (22-30) mmol/L BUN (7-17) mg/dL Creatinine (0.52-1.04) mg/dL Glucose (74-99) mg/dL POC Glucose (mg/dL) (70-110) mg/dL Procalcitonin (0.02-0.50) ng/mL Microbiology - Last 24 Hours (Table) 07/01/24 14:32 Blood Culture - Preliminary Blood Assessment and Plan Plan: Assessment: 1. Acute kidney injury secondary to hemodynamic ATN. Baseline creatinine 0.8 from April 2024 and is 2.05 today. Nonoliguric. No hydronephrosis noted on kidney ultrasound. Left kidney atrophic. 2. Hyperkalemia secondary to acute kidney injury, losartan and potassium supplementation. 3. Acute on chronic hypoxic and hypercapnic respiratory failure. On BiPAP. 4. Pneumonia on antibiotics. 5. History of right upper lobe lobectomy. 6. Chronic diastolic CHF with moderate tricuspid regurgitation and severe pulmonary hypertension. 7. Hypernatremia from lack of oral water intake. Plan: Start D5W at 50 cc an hour. Continue to hold diuretics. Wean FiO2.
--- NOTE | 2024-07-03 10:30 | P.PN ---
Subjective Progress Note Date: 07/03/24 Principal diagnosis: COPD, pneumonia This is a 78-year-old female with a history of severe COPD, chronic hypoxemic and hypercapnic respiratory failure, and obstructive sleep apnea syndrome. No acute events overnight. The patient is on BiPAP, 22/04 was weaned to FiO2 60%, gases at pO2 67, pCO2 75, pH 7.29. The patient is a DO NOT RESUSCITATE/DO NOT INTUBATE patient. Her chest x-ray this morning showed significant opacification of the right lung. Labs, are reviewed, and show sodium 146, potassium 4.7, chloride 105, bicarbonate 35, BUN 63, creatinine 2.05. Procalcitonin was 0.56. Medications, x-rays, and all labs are reviewed. Prognosis is poor. Objective - Vital Signs Vital signs: Vital Signs Temp 98.2 F 07/03/24 04:00 Pulse 101 H 07/03/24 08:06 Resp 9 L 07/03/24 07:00 BP 142/96 07/03/24 07:00 Pulse Ox 94 L 07/03/24 07:00 FiO2 69 07/03/24 08:06 Intake & Output 07/02/24 07/03/24 07/03/24 18:59 06:59 18:59 Intake Total 800 950 10 Output Total 442 443 35 Balance 358 507 -25 Weight 98.2 kg 94.8 kg Intake: IV 500 950 10 Invasive Line 3 10 Invasive Line 5 10 Piperacillin-Tazobactam 3 200 .375 gm In Sodium Chloride 0.9% 100 ml @ 25 mls/hr IVPB ONCE STA Rx# :[id number] Sodium Chloride 0.9% 1, 500 230 10 000 ml @ 50 mls/hr IV . Q20H [facility] Rx#:[id number] Vancomycin 1,500 mg In 500 Sodium Chloride 0.9% 500 ml 500 ml @ 167 mls/hr IVPB Q24H [facility] Rx#: [id number] Intake, IV Titration 300 Amount Calcium Gluconate in NaCl 100 1 gm In Saline 1 100ml. bag @ 400 mls/hr IVPB ONCE ONE Rx#:[id number] Piperacillin-Tazobactam 3 200 .375 gm In Sodium Chloride 0.9% 100 ml @ 25 mls/hr IVPB Q8HR [facility] Rx# :[id number] Output: Urine 442 443 35 Other: Voiding Method Indwelling Catheter Indwelling Catheter - Exam GENERAL EXAM: Awake, alert, on BiPAP, nurse at the bedside. HEAD: Normocephalic and atraumatic EYES: Normal reaction of pupils, equal size. NOSE: Clear with pink turbinates. THROAT: No erythema or exudates. NECK: No masses, no JVD. CHEST: No chest wall deformity. LUNGS: Equal air entry with expiratory wheezes and rhonchi, diminished right basilar lung sounds. On BiPAP with current settings 16/6 and FiO2 60%. SpO2 92%. Generating tidal volumes of 300-350. Respiratory rate averaging 15 to 20 breaths/min. No accessory muscle use. CVS: S1 and S2 normal with no audible murmur, regular rhythm. No extra heart sounds ABDOMEN: No hepatosplenomegaly, active bowel sounds, no guarding or rigidity. SPINE: No scoliosis or deformity SKIN: No rashes CENTRAL NERVOUS SYSTEM no focal deficits, tone is weak in all 4 extremities. EXTREMITIES: There is no peripheral edema, clubbing, or cyanosis. Peripheral pulses are intact. - Labs CBC & Chem 7: 07/03/24 05:34 07/03/24 05:34 Labs: Abnormal Lab Results - Last 24 Hours (Table) 07/02/24 07/02/24 07/02/24 Range/Units 10:45 11:16 16:14 WBC (3.8-10.6) k/uL RBC (3.80-5.40) m/uL Hgb (11.4-16.0) gm/dL MCV (80.0-100.0) fL MCHC (31.0-37.0) g/dL Neutrophils # (1.3-7.7) k/uL Lymphocytes # (1.0-4.8) k/uL ABG pH (7.35-7.45) ABG pCO2 (35-45) mmHg ABG pO2 (83-108) mmHg ABG HCO3 (21-25) mmol/L ABG Total CO2 (19-24) mmol/L ABG O2 Saturation (94-97) % Sodium (137-145) mmol/L Carbon Dioxide 31 H (22-30) mmol/L BUN (7-17) mg/dL Creatinine (0.52-1.04) mg/dL Glucose (74-99) mg/dL POC Glucose (mg/dL) 152 H 147 H (70-110) mg/dL Procalcitonin (0.02-0.50) ng/mL 07/03/24 07/03/24 07/03/24 Range/Units 05:34 05:34 05:34 WBC 11.0 H (3.8-10.6) k/uL RBC 3.64 L (3.80-5.40) m/uL Hgb 11.0 L (11.4-16.0) gm/dL MCV 103.0 H (80.0-100.0) fL MCHC 29.2 L (31.0-37.0) g/dL Neutrophils # 10.1 H (1.3-7.7) k/uL Lymphocytes # 0.4 L (1.0-4.8) k/uL ABG pH (7.35-7.45) ABG pCO2 (35-45) mmHg ABG pO2 (83-108) mmHg ABG HCO3 (21-25) mmol/L ABG Total CO2 (19-24) mmol/L ABG O2 Saturation (94-97) % Sodium 146 H (137-145) mmol/L Carbon Dioxide 35 H (22-30) mmol/L BUN 63 H (7-17) mg/dL Creatinine 2.05 H (0.52-1.04) mg/dL Glucose 163 H (74-99) mg/dL POC Glucose (mg/dL) (70-110) mg/dL Procalcitonin 0.56 H (0.02-0.50) ng/mL 07/03/24 Range/Units 09:49 WBC (3.8-10.6) k/uL RBC (3.80-5.40) m/uL Hgb (11.4-16.0) gm/dL MCV (80.0-100.0) fL MCHC (31.0-37.0) g/dL Neutrophils # (1.3-7.7) k/uL Lymphocytes # (1.0-4.8) k/uL ABG pH 7.29 L (7.35-7.45) ABG pCO2 75 H* (35-45) mmHg ABG pO2 67 L (83-108) mmHg ABG HCO3 36 H (21-25) mmol/L ABG Total CO2 38 H (19-24) mmol/L ABG O2 Saturation 92.7 L (94-97) % Sodium (137-145) mmol/L Carbon Dioxide (22-30) mmol/L BUN (7-17) mg/dL Creatinine (0.52-1.04) mg/dL Glucose (74-99) mg/dL POC Glucose (mg/dL) (70-110) mg/dL Procalcitonin (0.02-0.50) ng/mL Microbiology - Last 24 Hours (Table) 07/01/24 14:32 Blood Culture - Preliminary Blood Assessment and Plan Assessment: Acute on chronic hypoxemic and hypercapnic respiratory failure, secondary to acute COPD exacerbation and extensive of right sided healthcare associated pneumonia. Chest x-ray shows an extensive right lower lobe consolidation with volume loss. Follow-up chest CT redemonstrates the extensive consolidation and collapse throughout the right upper and lower lung with areas of pleural fluid also intervening along the lung parenchyma, possible tracking within the fissures. Largest collection anterior right upper lung measuring 10.9 x 4.8 x 2.8 cm. Possible infectious empyema. Acute hypercapnic encephalopathy Severe chronic obstructive pulmonary disease Chronic hypoxemic respiratory failure, secondary to above, normally on 1.5 L/min nasal cannula while at home History of obstructive sleep apnea, reportedly noncompliant with home CPAP machine History of heart failure, with borderline mildly impaired left ventricular ejection fraction of 45 to 50% History of pulmonary hypertension Chronic atrial fibrillation, normally anticoagulated on Eliquis History of hyperlipidemia History of hypertension Plan: Continue BiPAP therapy, with current settings. FiO2 weaned to 60%, continue to wean FiO2 to maintain SpO2 86 to 90%. ABG noted, consistent with severe hypercapnic respiratory failure. Patient is a DO NOT INTUBATE/DO NOT RESUSCITATE status. Start patient on combination of DuoNebs hopeea-umj-crykh, budesonide inhalation, formoterol inhalation, and IV Solu-Medrol. Continue empiric antibiotic coverage. Blood cultures currently with no growth. Procalcitonin 0.56. Lasix was d/c by nephrology. Protonix for GI prophylaxis. Resume Eliquis when able to take orals Overall prognosis is guarded secondary above-mentioned comorbidities. Currently, being monitored in the intensive care unit. Further recommendations to follow. I have personally seen and examined the patient, performed the documentation and the assessment and plan as written. Number of minutes spent on the visit:20
[2024-07-03 11:25] LABS: Glucose,Whole Blood 164 mg/dL (70-110)
[2024-07-03 11:45] LABS: Glucose,Whole Blood 165 mg/dL (70-110)
--- NOTE | 2024-07-03 11:46 | CDI ---
Documentation Clarification Form Date: 07/03/2024 From: Mavis Jean Baptiste Phone: [phone] Admit Date: 07/01/2024 02:15:00 PM Patient Name: Renuka Wolf Visit Number: [id number] Discharge Date: ATTENTION: The Clinical Documentation Specialists (CDI) and [facility] Coding Staff appreciate your assistance in clarifying documentation. Please respond to the clarification below the line at the bottom and electronically sign. The CDI & [facility] Coding staff will review the response and follow-up if needed. Please note: Queries are made part of the Legal Health Record. If you have any questions, please contact the author of this message via ITS. Doctor/Provider: Joo Henson MD: Encephalopathy is documented in the Pulmonology consult 07/02. Additional clarification regarding the type of encephalopathy is requested. History/Risk Factors: 78-year-old female with a history of AFib, COPD, HTN who presents with AMS and found to be in acute COPD exacerbation, acute hypoxic and hypercapnic respiratory failure and acute respiratory acidosis, Sepsis and Pneumonia Clinical Indicators: 07/01 Triage VS: 136/69, 97.2, 123, 30, 92% BVM 07/02 Pulmonology consult, Assessment: "Acute hypercapnic respiratory encephalopathy." 07/01 H&P HPI: "Patient presents because of altered mental status. Patient is completely confused and cannot provide information." 07/01 ABG: pH 7.12, pCO2 >98, pO2 80, O2 Sat 93.6 07/02 ABG: pH 7.17, pCO2 87, pO2 70, HCO3 32, CO2 34, O2 Sat 99.4 07/03 ABG: pH 7.29, pCO2 75, pO2 67, HCO3 36, CO2 38, O2 Sat 92.7, Base Excess 7.2 07/01-07/03 Potassium: 5.4, 6.1, 5.1, 4.7 BUN: 37, 50, 63 Creatinine: 1.13, 1.72, 2.05 Treatment: Zosyn 3.375gram IV R8aquvl start 07/01 Zithromax 500mg IV once 07/01 Vancomycin 1,500mg IV once 07/02 Normal Saline IV 1000cc bolus once 07/01, Normal Saline IV 75cc/hour 07/01-07/02 Sodium Bicarb 8.4% (1Meq/ml) 100ml once 07/02 Monitor ABG's, BiPAP, Pulse oximetry Please clarify the type of encephalopathy, if known: [x ] Metabolic Encephalopathy [ ] Other, please specify [ ] Unable to determine MTDD
--- NOTE | 2024-07-03 13:31 | P.PN ---
Subjective Progress Note Date: 07/03/24 This is a pleasant 78 years old female with past medical history of multiple medical problems as below. Patient presents because of altered mental status. Patient cannot provide information it was obtained from the family at bedside and records. As per and family patient was not using her BiPAP and she was sleeping most of the time yesterday around 22 hours, family got concerned and brought her to the hospital today. Patient is completely confused and cannot provide information and she has evidence of acute COPD exacerbations and she was admitted to the intensive care unit for this reason. No other information is available at now. Patient was mildly hypothermic 97.2, she is breathing fast at 30, tachycardic but blood pressure stable at 136/69. Labs reviewed showing WBC 21,000, rest of CBC is unremarkable Sodium 139, potassium 5.4. Creatinine is 1.1 pH is low 7.1, pCO2 is elevated at 98 and low pO2 at 80. Liver enzymes unremarkable Chest x-ray showing right lower lobe infiltrate. Patient is DNR and DNI and this confirmed with the family. Patient is going to be admitted to the ICU ct of brain: no acute process. Moderate to severe chronic small vessel ischemic disease. ct of chest: extensive consolidation and collapse pf the right mid and lower lung and fluid collection in RUL 07/02. Patient seen and examined. Currently on BiPAP. States she feels slightly better. Gets short of breath on minimal exertion. Labs done this morning showed WBC 13.3, hemoglobin 13, platelet count 296 sodium 143, potassium 6.1, BUN 50, creatinine 1.72 07/03. Patient seen and examined. Patient currently on BiPAP, states she is doing slightly better. Currently alert and oriented to self and place. 2D echo done showed LVEF of 65 to 70%, mild to moderate increased left ventricular wall thickness, severe right ventricle dilatation with mild right ventricular hypokinesis, RVSP of 68, moderate tricuspid regurg REVIEW OF SYSTEMS: Cannot be obtained as patient is on BiPAP PHYSICAL EXAMINATION: GENERAL: The patient is alert and oriented x1-2, ill looking, on BiPAP HEENT: Pupils are round and equally reacting to light. EOMI. No scleral icterus. No conjunctival pallor. Normocephalic, atraumatic. No pharyngeal erythema. No thyromegaly. CARDIOVASCULAR: S1 and S2 present. No murmurs, rubs, or gallops. PULMONARY: Chest is clear to auscultation, no wheezing or crackles. ABDOMEN: Soft, nontender, nondistended, normoactive bowel sounds. No palpable organomegaly. MUSCULOSKELETAL: No joint swelling or deformity. EXTREMITIES: No cyanosis, clubbing, or pedal edema. NEUROLOGICAL: Gross neurological examination did not reveal any focal deficits. SKIN: No rashes. Assessment and plan Acute COPD exacerbation Acute hypoxic hypercapnic respiratory failure Acute respiratory acidosis Hyperkalemia Acute kidney injury Hypertension Pulmonary hypertension Chronic hypoxic respiratory failure Chronic atrial fibrillation Hyperlipidemia History of obstructive sleep apnea History of coronary artery disease s/p cardiac cath Monitor vital signs Monitor CBC Monitor CMP Continue telemetry monitoring Continue bronchopulmonary hygiene Continues with BiPAP as needed Hyperkalemia protocol initiated Strict I's and O's, daily weights 2D echo done showed LVEF of 65 to 70%, mild to moderate increased left ventricular wall thickness, severe right ventricle dilatation with mild right ventricular hypokinesis, RVSP of 68, moderate tricuspid regurg Continue IV Zosyn and vancomycin Nephrology following Pulmonology following ID following Labs and medication were reviewed.. Continue same treatment. Continue with symptomatic treatment. Resume home medication. Monitor labs and vitals. DVT and GI prophylaxis. Further recommendations as per clinical course of the patient Dictation was produced using [employer] dictation software. please excuse any grammatical, word or spelling errors. Objective - Vital Signs Vital signs: Vital Signs Temp 98.9 F 07/03/24 12:00 Pulse 100 07/03/24 12:00 Resp 17 07/03/24 12:00 BP 143/87 07/03/24 12:00 Pulse Ox 91 L 07/03/24 11:55 FiO2 60 07/03/24 11:55 Intake & Output 07/02/24 07/03/24 07/03/24 18:59 06:59 18:59 Intake Total 800 950 130 Output Total 442 443 185 Balance 358 507 -55 Weight 98.2 kg 94.8 kg Intake: IV 500 950 30 Invasive Line 3 10 Invasive Line 5 10 Piperacillin-Tazobactam 3 200 .375 gm In Sodium Chloride 0.9% 100 ml @ 25 mls/hr IVPB ONCE STA Rx# :[id number] Sodium Chloride 0.9% 1, 500 230 30 000 ml @ 50 mls/hr IV . Q20H [facility] Rx#:[id number] Vancomycin 1,500 mg In 500 Sodium Chloride 0.9% 500 ml 500 ml @ 167 mls/hr IVPB Q24H [facility] Rx#: [id number] Intake, IV Titration 300 100 Amount Calcium Gluconate in NaCl 100 1 gm In Saline 1 100ml. bag @ 400 mls/hr IVPB ONCE ONE Rx#:[id number] Dextrose 5% in Water 1, 100 000 ml @ 50 mls/hr IV . Q20H [facility] Rx#:[id number] Piperacillin-Tazobactam 3 200 .375 gm In Sodium Chloride 0.9% 100 ml @ 25 mls/hr IVPB Q8HR [facility] Rx# :[id number] Output: Urine 442 443 185 Other: Voiding Method Indwelling Catheter Indwelling Catheter Indwelling Catheter - Labs CBC & Chem 7: 07/03/24 05:34 07/03/24 05:34 Labs: Abnormal Lab Results - Last 24 Hours (Table) 07/02/24 07/03/24 07/03/24 Range/Units 16:14 05:34 05:34 WBC 11.0 H (3.8-10.6) k/uL RBC 3.64 L (3.80-5.40) m/uL Hgb 11.0 L (11.4-16.0) gm/dL MCV 103.0 H (80.0-100.0) fL MCHC 29.2 L (31.0-37.0) g/dL Neutrophils # 10.1 H (1.3-7.7) k/uL Lymphocytes # 0.4 L (1.0-4.8) k/uL ABG pH (7.35-7.45) ABG pCO2 (35-45) mmHg ABG pO2 (83-108) mmHg ABG HCO3 (21-25) mmol/L ABG Total CO2 (19-24) mmol/L ABG O2 Saturation (94-97) % Sodium 146 H (137-145) mmol/L Carbon Dioxide 35 H (22-30) mmol/L BUN 63 H (7-17) mg/dL Creatinine 2.05 H (0.52-1.04) mg/dL Glucose 163 H (74-99) mg/dL POC Glucose (mg/dL) 147 H (70-110) mg/dL Procalcitonin (0.02-0.50) ng/mL 07/03/24 07/03/24 07/03/24 Range/Units 05:34 09:49 11:23 WBC (3.8-10.6) k/uL RBC (3.80-5.40) m/uL Hgb (11.4-16.0) gm/dL MCV (80.0-100.0) fL MCHC (31.0-37.0) g/dL Neutrophils # (1.3-7.7) k/uL Lymphocytes # (1.0-4.8) k/uL ABG pH 7.29 L (7.35-7.45) ABG pCO2 75 H* (35-45) mmHg ABG pO2 67 L (83-108) mmHg ABG HCO3 36 H (21-25) mmol/L ABG Total CO2 38 H (19-24) mmol/L ABG O2 Saturation 92.7 L (94-97) % Sodium (137-145) mmol/L Carbon Dioxide (22-30) mmol/L BUN (7-17) mg/dL Creatinine (0.52-1.04) mg/dL Glucose (74-99) mg/dL POC Glucose (mg/dL) 164 H (70-110) mg/dL Procalcitonin 0.56 H (0.02-0.50) ng/mL 07/03/24 Range/Units 11:44 WBC (3.8-10.6) k/uL RBC (3.80-5.40) m/uL Hgb (11.4-16.0) gm/dL MCV (80.0-100.0) fL MCHC (31.0-37.0) g/dL Neutrophils # (1.3-7.7) k/uL Lymphocytes # (1.0-4.8) k/uL ABG pH (7.35-7.45) ABG pCO2 (35-45) mmHg ABG pO2 (83-108) mmHg ABG HCO3 (21-25) mmol/L ABG Total CO2 (19-24) mmol/L ABG O2 Saturation (94-97) % Sodium (137-145) mmol/L Carbon Dioxide (22-30) mmol/L BUN (7-17) mg/dL Creatinine (0.52-1.04) mg/dL Glucose (74-99) mg/dL POC Glucose (mg/dL) 165 H (70-110) mg/dL Procalcitonin (0.02-0.50) ng/mL Microbiology - Last 24 Hours (Table) 07/01/24 14:32 Blood Culture - Preliminary Blood
--- NOTE | 2024-07-03 14:37 | P.PN ---
Subjective Progress Note Date: 07/03/24 Principal diagnosis: Reason for follow-up is pneumonia Patient is a 78-year female with a past medical history significant for hypertension COPD atrial fibrillation, obstructive sleep apnea and recent admission to the hospital April 2024 for COPD exacerbation patient has been brought into the ER by EMS as the patient was noticed to be lethargic and sleepy at home patient was noted to be short of breath, patient did have a CT with evidence of extensive consolidation concerning for pneumonia. On today's evaluation that is 07/03/2024, the patient continues to be afebrile, the patient is on BiPAP and breathing slightly comfortably, the Pt denies having any chest pain or worsening cough, the patient denies having any abdominal pain no vomiting or any diarrhea has been reported by the nursing staff. Patient white count is down to 11,000, creatinine is up to 2.05 blood cultures pending Objective - Vital Signs Vital signs: Vital Signs Temp 98.9 F 07/03/24 12:00 Pulse 96 07/03/24 14:00 Resp 13 07/03/24 14:00 BP 159/91 07/03/24 14:00 Pulse Ox 93 L 07/03/24 14:00 FiO2 60 07/03/24 11:55 Intake & Output 07/02/24 07/03/24 07/03/24 18:59 06:59 18:59 Intake Total 800 950 280 Output Total 442 443 250 Balance 358 507 30 Weight 98.2 kg 94.8 kg Intake: IV 500 950 30 Invasive Line 3 10 Invasive Line 5 10 Piperacillin-Tazobactam 3 200 .375 gm In Sodium Chloride 0.9% 100 ml @ 25 mls/hr IVPB ONCE STA Rx# :[id number] Sodium Chloride 0.9% 1, 500 230 30 000 ml @ 50 mls/hr IV . Q20H [facility] Rx#:[id number] Vancomycin 1,500 mg In 500 Sodium Chloride 0.9% 500 ml 500 ml @ 167 mls/hr IVPB Q24H [facility] Rx#: [id number] Intake, IV Titration 300 250 Amount Calcium Gluconate in NaCl 100 1 gm In Saline 1 100ml. bag @ 400 mls/hr IVPB ONCE ONE Rx#:[id number] Dextrose 5% in Water 1, 250 000 ml @ 50 mls/hr IV . Q20H [facility] Rx#:[id number] Piperacillin-Tazobactam 3 200 .375 gm In Sodium Chloride 0.9% 100 ml @ 25 mls/hr IVPB Q8HR [facility] Rx# :[id number] Output: Urine 442 443 250 Other: Voiding Method Indwelling Catheter Indwelling Catheter Indwelling Catheter - Exam GENERAL DESCRIPTION: An elderly female lying in bed in no distress RESPIRATORY SYSTEM: Unlabored breathing , decreased breath sounds at bases HEART: S1 S2 regular rate and rhythm , ABDOMEN: Soft , no tenderness EXTREMITIES: No edema feet - Labs CBC & Chem 7: 07/03/24 05:34 07/03/24 05:34 Labs: Abnormal Lab Results - Last 24 Hours (Table) 07/02/24 07/03/24 07/03/24 Range/Units 16:14 05:34 05:34 WBC 11.0 H (3.8-10.6) k/uL RBC 3.64 L (3.80-5.40) m/uL Hgb 11.0 L (11.4-16.0) gm/dL MCV 103.0 H (80.0-100.0) fL MCHC 29.2 L (31.0-37.0) g/dL Neutrophils # 10.1 H (1.3-7.7) k/uL Lymphocytes # 0.4 L (1.0-4.8) k/uL ABG pH (7.35-7.45) ABG pCO2 (35-45) mmHg ABG pO2 (83-108) mmHg ABG HCO3 (21-25) mmol/L ABG Total CO2 (19-24) mmol/L ABG O2 Saturation (94-97) % Sodium 146 H (137-145) mmol/L Carbon Dioxide 35 H (22-30) mmol/L BUN 63 H (7-17) mg/dL Creatinine 2.05 H (0.52-1.04) mg/dL Glucose 163 H (74-99) mg/dL POC Glucose (mg/dL) 147 H (70-110) mg/dL Procalcitonin (0.02-0.50) ng/mL 07/03/24 07/03/24 07/03/24 Range/Units 05:34 09:49 11:23 WBC (3.8-10.6) k/uL RBC (3.80-5.40) m/uL Hgb (11.4-16.0) gm/dL MCV (80.0-100.0) fL MCHC (31.0-37.0) g/dL Neutrophils # (1.3-7.7) k/uL Lymphocytes # (1.0-4.8) k/uL ABG pH 7.29 L (7.35-7.45) ABG pCO2 75 H* (35-45) mmHg ABG pO2 67 L (83-108) mmHg ABG HCO3 36 H (21-25) mmol/L ABG Total CO2 38 H (19-24) mmol/L ABG O2 Saturation 92.7 L (94-97) % Sodium (137-145) mmol/L Carbon Dioxide (22-30) mmol/L BUN (7-17) mg/dL Creatinine (0.52-1.04) mg/dL Glucose (74-99) mg/dL POC Glucose (mg/dL) 164 H (70-110) mg/dL Procalcitonin 0.56 H (0.02-0.50) ng/mL 07/03/24 Range/Units 11:44 WBC (3.8-10.6) k/uL RBC (3.80-5.40) m/uL Hgb (11.4-16.0) gm/dL MCV (80.0-100.0) fL MCHC (31.0-37.0) g/dL Neutrophils # (1.3-7.7) k/uL Lymphocytes # (1.0-4.8) k/uL ABG pH (7.35-7.45) ABG pCO2 (35-45) mmHg ABG pO2 (83-108) mmHg ABG HCO3 (21-25) mmol/L ABG Total CO2 (19-24) mmol/L ABG O2 Saturation (94-97) % Sodium (137-145) mmol/L Carbon Dioxide (22-30) mmol/L BUN (7-17) mg/dL Creatinine (0.52-1.04) mg/dL Glucose (74-99) mg/dL POC Glucose (mg/dL) 165 H (70-110) mg/dL Procalcitonin (0.02-0.50) ng/mL Microbiology - Last 24 Hours (Table) 07/01/24 14:32 Blood Culture - Preliminary Blood Assessment and Plan (1) Pneumonia Current Visit: Yes Status: Acute Code(s): J18.9 - PNEUMONIA, UNSPECIFIED ORGANISM SNOMED Code(s): 837532900 (2) Sepsis Current Visit: Yes Status: Acute Code(s): A41.9 - SEPSIS, UNSPECIFIED ORGANISM SNOMED Code(s): 47282899 (3) Leukocytosis Current Visit: No Status: Acute Code(s): D72.829 - ELEVATED WHITE BLOOD CELL COUNT, UNSPECIFIED SNOMED Code(s): 840004883 Plan: 1patient presented to hospital with sepsis in this patient who did have elevated white count tachycardia source is likely pneumonia with evidence of right-sided consolidation question of aspiration/gram-negative as the patient has been in and out of the hospital, gram-positive infection not entirely ex cluded 2-patient blood cultures are currently pending sputum has not been collected did have elevated procalcitonin 3we will discontinue vancomycin decrease risk of nephrotoxicity continue Zosyn and monitor clinical course closely Dictation was produced using [employer] dictation software. please excuse any grammatical, word or spelling errors. Time with Patient: Less than 30
[2024-07-03 17:27] LABS: Glucose,Whole Blood 176 mg/dL (70-110)
[2024-07-03 23:23] LABS: Glucose,Whole Blood 178 mg/dL (70-110)
[2024-07-04 06:11] LABS: Basophils % (A) 0 %; Eosinophils % (A) 0 %; HCT 37.7 % (34.0-46.0); HGB 11.2 gm/dL (11.4-16.0); Hypochromasia Marked; Lymphocytes # (A) 0.4 k/uL (1.0-4.8); Lymphocytes % (A) 3 %; MCH 30.3 pg (25.0-35.0); MCHC 29.6 g/dL (31.0-37.0); MCV 102.2 fL (80.0-100.0); Macrocytosis Slight; Monocytes # (A) 0.5 k/uL (0-1.0); Monocytes % (A) 4 %; Neutrophils # (A) 11.8 k/uL (1.3-7.7); Neutrophils % (A) 93 %; Platelet Count 325 k/uL (150-450); RBC 3.69 m/uL (3.80-5.40); RDW 13.5 % (11.5-15.5); WBC 12.7 k/uL (3.8-10.6)
[2024-07-04 06:30] LABS: African American GFR (CKD) 36 (>60 ml/min/1.73 sqM); Anion Gap 3 mmol/L; Blood Urea Nitrogen 61 mg/dL (7-17); Calcium 10.6 mg/dL (8.4-10.2); Carbon Dioxide 38 mmol/L (22-30); Chloride 106 mmol/L (98-107); Glucose 160 mg/dL (74-99); Non-African American GFR(CKD) 31 (>60 ml/min/1.73 sqM); Potassium 4.3 mmol/L (3.5-5.1); Sodium 147 mmol/L (137-145)
--- NOTE | 2024-07-04 07:43 | XR ---
EXAMINATION TYPE: XR chest 1V portable DATE OF EXAM: 07/04/2024 Comparison: 07/03/2024 Clinical History: 78-year-old female right lung opacification Findings: Right heart margin remains obscured by adjacent pleural parenchymal opacity but there has not been ae ration of the right upper and midlung. Extensive right perihilar and right lower lung opacity persist s. Possible developing left basilar opacity. Impression: 1. Some interval improvement now with aeration in the right upper and midlung. Extensive right perihi lar and right lower lung opacity persists. 2. There may be worsening aeration now at the left base.
--- NOTE | 2024-07-04 10:05 | P.PN ---
Subjective Patient is seen in follow-up for acute kidney injury. Renal function improved. Now on nasal cannula. Sodium level 147. Nonoliguric. Currently off diuretics. Vital signs are stable. General: No acute distress. HEENT: Head exam is unremarkable. On nasal cannula. LUNGS: Scattered rhonchi. HEART: Rate and Rhythm are regular. ABDOMEN: No distention. EXTREMITITES: No edema. Objective - Vital Signs Vital signs: Vital Signs Temp 98.6 F 07/04/24 06:00 Pulse 88 07/04/24 08:36 Resp 22 07/04/24 07:00 BP 149/100 07/04/24 07:00 Pulse Ox 93 L 07/04/24 07:00 FiO2 40 07/04/24 08:24 Intake & Output 07/03/24 07/04/24 07/04/24 18:59 06:59 18:59 Intake Total 480 600 50 Output Total 380 480 50 Balance 100 120 0 Weight 94.8 kg Intake: IV 30 550 50 Dextrose 5% in Water 1, 550 50 000 ml @ 80 mls/hr IV . [id number] [facility] Rx#:[id number] Sodium Chloride 0.9% 1, 30 000 ml @ 50 mls/hr IV . Q20H [facility] Rx#:[id number] Intake, IV Titration 450 50 Amount Dextrose 5% in Water 1, 450 50 000 ml @ 80 mls/hr IV . [id number] [facility] Rx#:[id number] Output: Urine 380 480 50 Other: Voiding Method Indwelling Catheter Indwelling Catheter - Labs CBC & Chem 7: 07/04/24 05:27 07/04/24 05:27 Labs: Abnormal Lab Results - Last 24 Hours (Table) 07/03/24 07/03/24 07/03/24 Range/Units 09:49 11:23 11:44 WBC (3.8-10.6) k/uL RBC (3.80-5.40) m/uL Hgb (11.4-16.0) gm/dL MCV (80.0-100.0) fL MCHC (31.0-37.0) g/dL Neutrophils # (1.3-7.7) k/uL Lymphocytes # (1.0-4.8) k/uL ABG pH 7.29 L (7.35-7.45) ABG pCO2 75 H* (35-45) mmHg ABG pO2 67 L (83-108) mmHg ABG HCO3 36 H (21-25) mmol/L ABG Total CO2 38 H (19-24) mmol/L ABG O2 Saturation 92.7 L (94-97) % Sodium (137-145) mmol/L Carbon Dioxide (22-30) mmol/L BUN (7-17) mg/dL Creatinine (0.52-1.04) mg/dL Glucose (74-99) mg/dL POC Glucose (mg/dL) 164 H 165 H (70-110) mg/dL Calcium (8.4-10.2) mg/dL 07/03/24 07/03/24 07/04/24 Range/Units 17:26 23:22 05:27 WBC 12.7 H (3.8-10.6) k/uL RBC 3.69 L (3.80-5.40) m/uL Hgb 11.2 L (11.4-16.0) gm/dL MCV 102.2 H (80.0-100.0) fL MCHC 29.6 L (31.0-37.0) g/dL Neutrophils # 11.8 H (1.3-7.7) k/uL Lymphocytes # 0.4 L (1.0-4.8) k/uL ABG pH (7.35-7.45) ABG pCO2 (35-45) mmHg ABG pO2 (83-108) mmHg ABG HCO3 (21-25) mmol/L ABG Total CO2 (19-24) mmol/L ABG O2 Saturation (94-97) % Sodium (137-145) mmol/L Carbon Dioxide (22-30) mmol/L BUN (7-17) mg/dL Creatinine (0.52-1.04) mg/dL Glucose (74-99) mg/dL POC Glucose (mg/dL) 176 H 178 H (70-110) mg/dL Calcium (8.4-10.2) mg/dL 07/04/24 Range/Units 05:27 WBC (3.8-10.6) k/uL RBC (3.80-5.40) m/uL Hgb (11.4-16.0) gm/dL MCV (80.0-100.0) fL MCHC (31.0-37.0) g/dL Neutrophils # (1.3-7.7) k/uL Lymphocytes # (1.0-4.8) k/uL ABG pH (7.35-7.45) ABG pCO2 (35-45) mmHg ABG pO2 (83-108) mmHg ABG HCO3 (21-25) mmol/L ABG Total CO2 (19-24) mmol/L ABG O2 Saturation (94-97) % Sodium 147 H (137-145) mmol/L Carbon Dioxide 38 H (22-30) mmol/L BUN 61 H (7-17) mg/dL Creatinine 1.58 H (0.52-1.04) mg/dL Glucose 160 H (74-99) mg/dL POC Glucose (mg/dL) (70-110) mg/dL Calcium 10.6 H (8.4-10.2) mg/dL Microbiology - Last 24 Hours (Table) 07/01/24 14:32 Blood Culture - Preliminary Blood Assessment and Plan Plan: Assessment: 1. Acute kidney injury secondary to hemodynamic ATN. Baseline creatinine 0.8 from April 2024 and peaked at 2.05 this admission -1.58 today. Nonoliguric. No hydronephrosis noted on kidney ultrasound. Left kidney atrophic. 2. Hyperkalemia secondary to acute kidney injury, losartan and potassium supplementation. Resolved. 3. Acute on chronic hypoxic and hypercapnic respiratory failure. Improved. Now on nasal cannula. 4. Pneumonia on antibiotics. 5. History of right upper lobe lobectomy. 6. Chronic diastolic CHF with moderate tricuspid regurgitation and severe pul monary hypertension. 7. Hypernatremia from lack of oral water intake. 8. Hypercalcemia. Calcium level 10.6 today. Not on any calcium or vitamin D supplementation. Possibly volume contraction. Plan: Rate of D5W increased to 100 cc an hour. Repeat sodium level this afternoon. Check further workup for hypercalcemia including vitamin D and PTH.
--- NOTE | 2024-07-04 10:59 | P.PN ---
Subjective Progress Note Date: 07/04/24 The patient is seen today July 04, 2024 in follow-up in the intensive care unit. She is currently awake and alert. She is resting comfortably in bed. Currently on BiPAP at 16/6 and 40% FiO2. Her chest x-ray is showing improvement in the opacification of the right upper and mid lung. Some opacification in the right perihilar and right lower lung. Blood culture revealing no growth at 48 hours. White count 12.7. Hemoglobin 11.2. Platelets 325. Sodium 147. Potassium 4.3. Bicarb 38. BUN 61. Creatinine 1.58. Glucose 160. She is on D5W now at 100 mL/h. She is continued on Zosyn. Procalcitonin 0.56. Objective - Vital Signs Vital signs: Vital Signs Temp 98.6 F 07/04/24 06:00 Pulse 97 07/04/24 10:50 Resp 27 H 07/04/24 10:30 BP 134/71 07/04/24 10:30 Pulse Ox 92 L 07/04/24 10:30 FiO2 40 07/04/24 10:45 Intake & Output 07/03/24 07/04/24 07/04/24 18:59 06:59 18:59 Intake Total 480 600 300 Output Total 380 480 200 Balance 100 120 100 Weight 94.8 kg Intake: IV 30 550 300 Dextrose 5% in Water 1, 550 300 000 ml @ 100 mls/hr IV . Q10H [facility] Rx#:[id number] Sodium Chloride 0.9% 1, 30 000 ml @ 50 mls/hr IV . Q20H [facility] Rx#:[id number] Intake, IV Titration 450 50 Amount Dextrose 5% in Water 1, 450 50 000 ml @ 100 mls/hr IV . Q10H [facility] Rx#:[id number] Output: Urine 380 480 200 Other: Voiding Method Indwelling Catheter Indwelling Catheter Indwelling Catheter - Exam GENERAL EXAM: Alert, 78-year-old female, on BiPAP 16/6 and 40% FiO2, fairly comf ortable in no apparent distress. HEAD: Normocephalic. EYES: Normal reaction of pupils, equal size. NOSE: Clear with pink turbinates. THROAT: No erythema or exudates. NECK: No masses, no JVD. CHEST: No chest wall deformity. LUNGS: Equal air entry with few scattered rhonchi right greater than left. CVS: S1 and S2 normal with no audible murmur, regular rhythm. ABDOMEN: No hepatosplenomegaly, normal bowel sounds, no guarding or rigidity. SPINE: No scoliosis or deformity SKIN: No rashes CENTRAL NERVOUS SYSTEM: No focal deficits, tone is normal in all 4 extremities. EXTREMITIES: There is 1-2+ peripheral edema. No clubbing, no cyanosis. Peripheral pulses are intact. - Labs CBC & Chem 7: 07/04/24 05:07/04/24 05:27 Labs: Abnormal Lab Results - Last 24 Hours (Table) 07/03/24 07/03/24 07/03/24 Range/Units 11:23 11:44 17:26 WBC (3.8-10.6) k/uL RBC (3.80-5.40) m/uL Hgb (11.4-16.0) gm/dL MCV (80.0-100.0) fL MCHC (31.0-37.0) g/dL Neutrophils # (1.3-7.7) k/uL Lymphocytes # (1.0-4.8) k/uL Sodium (137-145) mmol/L Carbon Dioxide (22-30) mmol/L BUN (7-17) mg/dL Creatinine (0.52-1.04) mg/dL Glucose (74-99) mg/dL POC Glucose (mg/dL) 164 H 165 H 176 H (70-110) mg/dL Calcium (8.4-10.2) mg/dL Total Protein (PEP) (6.2-8.2) g/dL 07/03/24 07/04/24 07/04/24 Range/Units 23:22 05:27 05:27 WBC 12.7 H (3.8-10.6) k/uL RBC 3.69 L (3.80-5.40) m/uL Hgb 11.2 L (11.4-16.0) gm/dL MCV 102.2 H (80.0-100.0) fL MCHC 29.6 L (31.0-37.0) g/dL Neutrophils # 11.8 H (1.3-7.7) k/uL Lymphocytes # 0.4 L (1.0-4.8) k/uL Sodium 147 H (137-145) mmol/L Carbon Dioxide 38 H (22-30) mmol/L BUN 61 H (7-17) mg/dL Creatinine 1.58 H (0.52-1.04) mg/dL Glucose 160 H (74-99) mg/dL POC Glucose (mg/dL) 178 H (70-110) mg/dL Calcium 10.6 H (8.4-10.2) mg/dL Total Protein (PEP) (6.2-8.2) g/dL 07/04/24 Range/Units 07:32 WBC (3.8-10.6) k/uL RBC (3.80-5.40) m/uL Hgb (11.4-16.0) gm/dL MCV (80.0-100.0) fL MCHC (31.0-37.0) g/dL Neutrophils # (1.3-7.7) k/uL Lymphocytes # (1.0-4.8) k/uL Sodium (137-145) mmol/L Carbon Dioxide (22-30) mmol/L BUN (7-17) mg/dL Creatinine (0.52-1.04) mg/dL Glucose (74-99) mg/dL POC Glucose (mg/dL) (70-110) mg/dL Calcium (8.4-10.2) mg/dL Total Protein (PEP) 5.7 L (6.2-8.2) g/dL Microbiology - Last 24 Hours (Table) 07/01/24 14:32 Blood Culture - Preliminary Blood Assessment and Plan Assessment: Acute on chronic hypoxemic and hypercapnic respiratory failure, secondary to acute COPD exacerbation and extensive of right sided healthcare associated pneumonia. Today's chest x-ray showing improvement Acute hypercapnic encephalopathy Severe chronic obstructive pulmonary disease Chronic hypoxemic respiratory failure, secondary to above, normally on 1.5 L/min nasal cannula while at home Obstructive sleep apnea, reportedly noncompliant with home CPAP machine History of heart failure, with borderline mildly impaired left ventricular ejection fraction of 45 to 50% Pulmonary hypertension Chronic atrial fibrillation, anticoagulated with Eliquis Hyperlipidemia Hypertension Plan: The patient was seen and evaluated Chest x-ray, labs and medications reviewed Trial off BiPAP and titrate the FiO2 as tolerated Continue Zosyn Continue D5W at 100 mL/h We will continue to follow I have personally seen and examined the patient, performed the documentation and the assessment and plan as written. Number of minutes spent on the visit: 10.
[2024-07-04 12:21] LABS: Glucose,Whole Blood 195 mg/dL (70-110)
--- NOTE | 2024-07-04 13:13 | P.PN ---
Subjective Progress Note Date: 07/04/24 This is a pleasant 78 years old female with past medical history of multiple medical problems as below. Patient presents because of altered mental status. Patient cannot provide information it was obtained from the family at bedside and records. As per and family patient was not using her BiPAP and she was sleeping most of the time yesterday around 22 hours, family got concerned and brought her to the hospital today. Patient is completely confused and cannot provide information and she has evidence of acute COPD exacerbations and she was admitted to the intensive care unit for this reason. No other information is available at now. Patient was mildly hypothermic 97.2, she is breathing fast at 30, tachycardic but blood pressure stable at 136/69. Labs reviewed showing WBC 21,000, rest of CBC is unremarkable Sodium 139, potassium 5.4. Creatinine is 1.1 pH is low 7.1, pCO2 is elevated at 98 and low pO2 at 80. Liver enzymes unremarkable Chest x-ray showing right lower lobe infiltrate. Patient is DNR and DNI and this confirmed with the family. Patient is going to be admitted to the ICU ct of brain: no acute process. Moderate to severe chronic small vessel ischemic disease. ct of chest: extensive consolidation and collapse pf the right mid and lower lung and fluid collection in RUL 07/02. Patient seen and examined. Currently on BiPAP. States she feels slightly better. Gets short of breath on minimal exertion. Labs done this morning showed WBC 13.3, hemoglobin 13, platelet count 296 sodium 143, potassium 6.1, BUN 50, creatinine 1.72 07/03. Patient seen and examined. Patient currently on BiPAP, states she is doing slightly better. Currently alert and oriented to self and place. 2D echo done showed LVEF of 65 to 70%, mild to moderate increased left ventricular wall thickness, severe right ventricle dilatation with mild right ventricular hypokinesis, RVSP of 68, moderate tricuspid regurg 07/04. Patient seen and examined. Currently on BiPAP. Continues to be l ethargic. REVIEW OF SYSTEMS: Cannot be obtained as patient is on BiPAP PHYSICAL EXAMINATION: GENERAL: The patient is alert and oriented x1-2, ill looking, on BiPAP HEENT: Pupils are round and equally reacting to light. EOMI. No scleral icterus. No conjunctival pallor. Normocephalic, atraumatic. No pharyngeal erythema. No thyromegaly. CARDIOVASCULAR: S1 and S2 present. No murmurs, rubs, or gallops. PULMONARY: Chest is clear to auscultation, no wheezing or crackles. ABDOMEN: Soft, nontender, nondistended, normoactive bowel sounds. No palpable organomegaly. MUSCULOSKELETAL: No joint swelling or deformity. EXTREMITIES: No cyanosis, clubbing, or pedal edema. NEUROLOGICAL: Gross neurological examination did not reveal any focal deficits. SKIN: No rashes. Assessment and plan Acute COPD exacerbation Acute hypoxic hypercapnic respiratory failure Acute respiratory acidosis Hyperkalemia Acute kidney injury Hypertension Pulmonary hypertension Chronic hypoxic respiratory failure Chronic atrial fibrillation Hyperlipidemia History of obstructive sleep apnea History of coronary artery disease s/p cardiac cath Monitor vital signs Monitor CBC Monitor CMP Continue telemetry monitoring Continue bronchopulmonary hygiene Continues with BiPAP as needed Hyperkalemia protocol initiated Strict I's and O's, daily weights 2D echo done showed LVEF of 65 to 70%, mild to moderate increased left ventricular wall thickness, severe right ventricle dilatation with mild right ventricular hypokinesis, RVSP of 68, moderate tricuspid regurg Continue D5W, rate increased to 100 mL/h Continue IV Zosyn Nephrology following Pulmonology following ID following Labs and medication were reviewed.. Continue same treatment. Continue with symptomatic treatment. Resume home medication. Monitor labs and vitals. DVT and GI prophylaxis. Further recommendations as per clinical course of the patient Dictation was produced using [employer] dictation software. please excuse any grammatical, word or spelling errors. Objective - Vital Signs Vital signs: Vital Signs Temp 98.4 F 07/04/24 12:00 Pulse 101 H 07/04/24 12:30 Resp 21 07/04/24 12:30 BP 153/83 07/04/24 12:30 Pulse Ox 95 07/04/24 12:30 FiO2 40 07/04/24 12:00 Intake & Output 07/03/24 07/04/24 07/04/24 18:59 06:59 18:59 Intake Total 480 600 500 Output Total 380 480 340 Balance 100 120 160 Weight 94.8 kg Intake: IV 30 550 500 Dextrose 5% in Water 1, 550 500 000 ml @ 100 mls/hr IV . Q10H [facility] Rx#:[id number] Sodium Chloride 0.9% 1, 30 000 ml @ 50 mls/hr IV . Q20H [facility] Rx#:[id number] Intake, IV Titration 450 50 Amount Dextrose 5% in Water 1, 450 50 000 ml @ 100 mls/hr IV . Q10H [facility] Rx#:[id number] Output: Urine 380 480 340 Other: Voiding Method Indwelling Catheter Indwelling Catheter Indwelling Catheter - Labs CBC & Chem 7: 07/04/24 05:27 07/04/24 05:27 Labs: Abnormal Lab Results - Last 24 Hours (Table) 07/03/24 07/03/24 07/04/24 Range/Units 17:26 23:22 05:27 WBC 12.7 H (3.8-10.6) k/uL RBC 3.69 L (3.80-5.40) m/uL Hgb 11.2 L (11.4-16.0) gm/dL MCV 102.2 H (80.0-100.0) fL MCHC 29.6 L (31.0-37.0) g/dL Neutrophils # 11.8 H (1.3-7.7) k/uL Lymphocytes # 0.4 L (1.0-4.8) k/uL Sodium (137-145) mmol/L Carbon Dioxide (22-30) mmol/L BUN (7-17) mg/dL Creatinine (0.52-1.04) mg/dL Glucose (74-99) mg/dL POC Glucose (mg/dL) 176 H 178 H (70-110) mg/dL Calcium (8.4-10.2) mg/dL Total Protein (PEP) (6.2-8.2) g/dL PTH Intact (14.0-72.0) pg/mL 07/04/24 07/04/24 07/04/24 Range/Units 05:27 07:32 07:32 WBC (3.8-10.6) k/uL RBC (3.80-5.40) m/uL Hgb (11.4-16.0) gm/dL MCV (80.0-100.0) fL MCHC (31.0-37.0) g/dL Neutrophils # (1.3-7.7) k/uL Lymphocytes # (1.0-4.8) k/uL Sodium 147 H (137-145) mmol/L Carbon Dioxide 38 H (22-30) mmol/L BUN 61 H (7-17) mg/dL Creatinine 1.58 H (0.52-1.04) mg/dL Glucose 160 H (74-99) mg/dL POC Glucose (mg/dL) (70-110) mg/dL Calcium 10.6 H (8.4-10.2) mg/dL Total Protein (PEP) 5.7 L (6.2-8.2) g/dL PTH Intact 130.0 H (14.0-72.0) pg/mL 07/04/24 Range/Units 12:20 WBC (3.8-10.6) k/uL RBC (3.80-5.40) m/uL Hgb (11.4-16.0) gm/dL MCV (80.0-100.0) fL MCHC (31.0-37.0) g/dL Neutrophils # (1.3-7.7) k/uL Lymphocytes # (1.0-4.8) k/uL Sodium (137-145) mmol/L Carbon Dioxide (22-30) mmol/L BUN (7-17) mg/dL Creatinine (0.52-1.04) mg/dL Glucose (74-99) mg/dL POC Glucose (mg/dL) 195 H (70-110) mg/dL Calcium (8.4-10.2) mg/dL Total Protein (PEP) (6.2-8.2) g/dL PTH Intact (14.0-72.0) pg/mL Microbiology - Last 24 Hours (Table) 07/01/24 14:32 Blood Culture - Preliminary Blood
[2024-07-04] MEDS: DEXTROSE 5% IN WATER 1,000 ML IV SCH (17:05)
[2024-07-04 18:04] LABS: Glucose,Whole Blood 211 mg/dL (70-110)
[2024-07-04] MEDS ORDERED: DEXTROSE 50% SYRINGE 50 ML IVP PRN ×2 (18:45)
[2024-07-04 23:40] LABS: Glucose,Whole Blood 208 mg/dL (70-110)
[2024-07-05] MEDS ORDERED: methylPREDNISolone SOD SUCCI 125 MG/2 ML VIAL ONE
[2024-07-05] MEDS: INSULIN ASPART (NovoLOG) 100 UNIT/ML VIAL SQ SCH ×2 (04:14→18:11)
[2024-07-05 05:47] LABS: Glucose,Whole Blood 197 mg/dL (70-110)
[2024-07-05 07:26] LABS: Basophils % (A) 0 %; Eosinophils % (A) 0 %; HCT 34.7 % (34.0-46.0); HGB 10.4 gm/dL (11.4-16.0); Hypochromasia Marked; Lymphocytes # (A) 0.3 k/uL (1.0-4.8); Lymphocytes % (A) 3 %; MCH 30.3 pg (25.0-35.0); MCHC 29.9 g/dL (31.0-37.0); MCV 101.2 fL (80.0-100.0); Macrocytosis Slight; Mean Platelet Volume 7.4; Monocytes # (A) 0.3 k/uL (0-1.0); Monocytes % (A) 4 %; Neutrophils # (A) 7.9 k/uL (1.3-7.7); Neutrophils % (A) 93 %; Platelet Count 248 k/uL (150-450); RBC 3.43 m/uL (3.80-5.40); RDW 13.7 % (11.5-15.5); WBC 8.5 k/uL (3.8-10.6)
[2024-07-05 08:02] LABS: African American GFR (CKD) 51 (>60 ml/min/1.73 sqM); Anion Gap 0 mmol/L; Blood Urea Nitrogen 46 mg/dL (7-17); Calcium 10.5 mg/dL (8.4-10.2); Carbon Dioxide 39 mmol/L (22-30); Chloride 102 mmol/L (98-107); Glucose 182 mg/dL (74-99); Non-African American GFR(CKD) 44 (>60 ml/min/1.73 sqM); Potassium 4.1 mmol/L (3.5-5.1); Sodium 141 mmol/L (137-145)
--- NOTE | 2024-07-05 08:35 | XR ---
EXAMINATION TYPE: XR chest 1V portable DATE OF EXAM: 07/05/2024 Comparison: 07/04/2024 Clinical History: 78-year-old female right lung opacification Findings: A moderate right pleural effusion may show slight improvement. Retrocardiac opacity persists. Heart m ildly enlarged. Relative upper lung lucencies. Impression: 1. COPD with mild cardiomegaly. 2. Moderate right pleural effusion with adjacent atelectasis and/or consolidation shows some improvem ent. 3. Ongoing retrocardiac opacity.
--- NOTE | 2024-07-05 09:44 | P.PN ---
Subjective Patient is seen in follow-up for acute kidney injury. Renal function improved. On nasal cannula. Sodium level 141. Nonoliguric. Currently off diuretics. On D5W. Vital signs are stable. General: No acute distress. HEENT: Head exam is unremarkable. On nasal cannula. LUNGS: Scattered rhonchi. HEART: Rate and Rhythm are regular. ABDOMEN: No distention. EXTREMITITES: No edema. Objective - Vital Signs Vital signs: Vital Signs Temp 98.1 F 07/05/24 04:00 Pulse 92 07/05/24 07:50 Resp 15 07/05/24 07:00 BP 161/80 07/05/24 07:00 Pulse Ox 86 L 07/05/24 07:00 FiO2 40 07/05/24 07:31 Intake & Output 07/04/24 07/05/24 07/05/24 18:59 06:59 18:59 Intake Total 1280 320 80 Output Total 645 195 50 Balance 635 125 30 Weight 95.8 kg Intake: IV 1280 320 80 Dextrose 5% in Water 1, 1000 000 ml @ 100 mls/hr IV . Q10H [facility] Rx#:[id number] Dextrose 5% in Water 1, 80 320 80 000 ml @ 80 mls/hr IV . [id number] [facility] Rx#:[id number] Piperacillin-Tazobactam 3 200 .375 gm In Sodium Chloride 0.9% 100 ml @ 25 mls/hr IVPB Q8HR [facility] Rx# :[id number] Output: Urine 645 195 50 Other: Voiding Method Indwelling Catheter Indwelling Catheter - Labs CBC & Chem 7: 07/05/24 06:22 07/05/24 06:16 Labs: Abnormal Lab Results - Last 24 Hours (Table) 07/04/24 07/04/24 07/04/24 Range/Units 07:32 07:32 07:32 RBC (3.80-5.40) m/uL Hgb (11.4-16.0) gm/dL MCV (80.0-100.0) fL MCHC (31.0-37.0) g/dL Neutrophils # (1.3-7.7) k/uL Lymphocytes # (1.0-4.8) k/uL Carbon Dioxide (22-30) mmol/L BUN (7-17) mg/dL Creatinine (0.52-1.04) mg/dL Glucose (74-99) mg/dL POC Glucose (mg/dL) (70-110) mg/dL Calcium (8.4-10.2) mg/dL Total Protein (PEP) 5.7 L (6.2-8.2) g/dL Vitamin D 25-Hydroxy 8.5 L (30.0-100.0) ng/mL PTH Intact 130.0 H (14.0-72.0) pg/mL 07/04/24 07/04/24 07/05/24 Range/Units 12:20 18:02 05:46 RBC (3.80-5.40) m/uL Hgb (11.4-16.0) gm/dL MCV (80.0-100.0) fL MCHC (31.0-37.0) g/dL Neutrophils # (1.3-7.7) k/uL Lymphocytes # (1.0-4.8) k/uL Carbon Dioxide (22-30) mmol/L BUN (7-17) mg/dL Creatinine (0.52-1.04) mg/dL Glucose (74-99) mg/dL POC Glucose (mg/dL) 195 H 211 H 197 H (70-110) mg/dL Calcium (8.4-10.2) mg/dL Total Protein (PEP) (6.2-8.2) g/dL Vitamin D 25-Hydroxy (30.0-100.0) ng/mL PTH Intact (14.0-72.0) pg/mL 07/05/24 07/05/24 Range/Units 06:16 06:22 RBC 3.43 L (3.80-5.40) m/uL Hgb 10.4 L (11.4-16.0) gm/dL MCV 101.2 H (80.0-100.0) fL MCHC 29.9 L (31.0-37.0) g/dL Neutrophils # 7.9 H (1.3-7.7) k/uL Lymphocytes # 0.3 L (1.0-4.8) k/uL Carbon Dioxide 39 H (22-30) mmol/L BUN 46 H (7-17) mg/dL Creatinine 1.18 H (0.52-1.04) mg/dL Glucose 182 H (74-99) mg/dL POC Glucose (mg/dL) (70-110) mg/dL Calcium 10.5 H (8.4-10.2) mg/dL Total Protein (PEP) (6.2-8.2) g/dL Vitamin D 25-Hydroxy (30.0-100.0) ng/mL PTH Intact (14.0-72.0) pg/mL Microbiology - Last 24 Hours (Table) 07/01/24 14:32 Blood Culture - Preliminary Blood Assessment and Plan Plan: Assessment: 1. Acute kidney injury secondary to hemodynamic ATN. Baseline creatinine 0.8 from April 2024 and peaked at 2.05 this admission -1.18 today. Nonoliguric. No hydronephrosis noted on kidney ultrasound. Left kidney atrophic. 2. Hyperkalemia secondary to acute kidney injury, losartan and potassium supplementation. Resolved. 3. Acute on chronic hypoxic and hypercapnic respiratory failure. Improved. Now on nasal cannula. 4. Pneumonia on antibiotics. 5. History of right upper lobe lobectomy. 6. Chronic diastolic CHF with moderate tricuspid regurgitation and severe pulmonary hypertension. 7. Hypernatremia from lack of oral water intake. Improved with D5W. 8. Hypercalcemia. Calcium level 10.5 today. Not on any calcium or vitamin D supplementation. Possibly volume contraction. PTH elevated at 130. Vitamin D 8.5. Plan: Reduce rate of D5W to 40 cc an hour. Follow-up pending workup for hypercalcemia. Sensipar 30 mg once today. Check parathyroid nuclear scan.
[2024-07-05 09:46] LABS: Angiotensin-1 Converting Enz. 17 U/L (8-52)
--- NOTE | 2024-07-05 10:21 | P.PN ---
Subjective Progress Note Date: 07/05/24 Principal diagnosis: COPD, pneumonia This is a 78-year-old female with a history of severe COPD, chronic hypoxemic and hypercapnic respiratory failure, and obstructive sleep apnea syndrome. Overnight she had recurrent A-fib with rates in 80s-90s. The patient was on Bi PAP overnight, 22/04 was weaned to FiO2 40%, and transitioned to NC on 3L O2 this morning. The patient is a DO NOT RESUSCITATE/DO NOT INTUBATE patient. Her chest x-ray is showing improvement in the opacification of the right upper and mid lung. Some opacification in the right perihilar and right lower lung. Labs, are reviewed, and show sodium 141, potassium 4.1, chloride 102, bicarbonate 39, BUN 46, creatinine 1.18. Medications, x-rays, and all labs are reviewed. Pro gnosis is poor. Objective - Vital Signs Vital signs: Vital Signs Temp 98.1 F 07/05/24 04:00 Pulse 92 07/05/24 07:50 Resp 15 07/05/24 07:00 BP 161/80 07/05/24 07:00 Pulse Ox 86 L 07/05/24 07:00 FiO2 40 07/05/24 07:31 Intake & Output 07/04/24 07/05/24 07/05/24 18:59 06:59 18:59 Intake Total 1280 320 80 Output Total 645 195 50 Balance 635 125 30 Weight 95.8 kg Intake: IV 1280 320 80 Dextrose 5% in Water 1, 1000 000 ml @ 100 mls/hr IV . Q10H [facility] Rx#:[id number] Dextrose 5% in Water 1, 80 320 80 000 ml @ 80 mls/hr IV . [id number] [facility] Rx#:[id number] Piperacillin-Tazobactam 3 200 .375 gm In Sodium Chloride 0.9% 100 ml @ 25 mls/hr IVPB Q8HR [facility] Rx# :[id number] Output: Urine 645 195 50 Other: Voiding Method Indwelling Catheter Indwelling Catheter - Exam GENERAL EXAM: Awake, alert, on nasal cannula, nurse at the bedside. HEAD: Normocephalic and atraumatic EYES: Normal reaction of pupils, equal size. NOSE: Clear with pink turbinates. THROAT: No erythema or exudates. NECK: No masses, no JVD. CHEST: No chest wall deformity. LUNGS: Equal air entry with expiratory wheezes and rhonchi, diminished right basilar lung sounds. On NC 3L O2. CVS: S1 and S2 normal with no audible murmur, regular rhythm. No extra heart sounds ABDOMEN: No hepatosplenomegaly, active bowel sounds, no guarding or rigidity. SPINE: No scoliosis or deformity SKIN: No rashes CENTRAL NERVOUS SYSTEM no focal deficits, tone is weak in all 4 extremities. EXTREMITIES: There is no peripheral edema, clubbing, or cyanosis. Peripheral pulses are intact. - Labs CBC & Chem 7: 07/05/24 06:22 07/05/24 06:16 Labs: Abnormal Lab Results - Last 24 Hours (Table) 07/04/24 07/04/24 07/04/24 Range/Units 07:32 07:32 07:32 RBC (3.80-5.40) m/uL Hgb (11.4-16.0) gm/dL MCV (80.0-100.0) fL MCHC (31.0-37.0) g/dL Neutrophils # (1.3-7.7) k/uL Lymphocytes # (1.0-4.8) k/uL Carbon Dioxide (22-30) mmol/L BUN (7-17) mg/dL Creatinine (0.52-1.04) mg/dL Glucose (74-99) mg/dL POC Glucose (mg/dL) (70-110) mg/dL Calcium (8.4-10.2) mg/dL Total Protein (PEP) 5.7 L (6.2-8.2) g/dL Vitamin D 25-Hydroxy 8.5 L (30.0-100.0) ng/mL PTH Intact 130.0 H (14.0-72.0) pg/mL 07/04/24 07/04/24 07/05/24 Range/Units 12:20 18:02 05:46 RBC (3.80-5.40) m/uL Hgb (11.4-16.0) gm/dL MCV (80.0-100.0) fL MCHC (31.0-37.0) g/dL Neutrophils # (1.3-7.7) k/uL Lymphocytes # (1.0-4.8) k/uL Carbon Dioxide (22-30) mmol/L BUN (7-17) mg/dL Creatinine (0.52-1.04) mg/dL Glucose (74-99) mg/dL POC Glucose (mg/dL) 195 H 211 H 197 H (70-110) mg/dL Calcium (8.4-10.2) mg/dL Total Protein (PEP) (6.2-8.2) g/dL Vitamin D 25-Hydroxy (30.0-100.0) ng/mL PTH Intact (14.0-72.0) pg/mL 07/05/24 07/05/24 Range/Units 06:16 06:22 RBC 3.43 L (3.80-5.40) m/uL Hgb 10.4 L (11.4-16.0) gm/dL MCV 101.2 H (80.0-100.0) fL MCHC 29.9 L (31.0-37.0) g/dL Neutrophils # 7.9 H (1.3-7.7) k/uL Lymphocytes # 0.3 L (1.0-4.8) k/uL Carbon Dioxide 39 H (22-30) mmol/L BUN 46 H (7-17) mg/dL Creatinine 1.18 H (0.52-1.04) mg/dL Glucose 182 H (74-99) mg/dL POC Glucose (mg/dL) (70-110) mg/dL Calcium 10.5 H (8.4-10.2) mg/dL Total Protein (PEP) (6.2-8.2) g/dL Vitamin D 25-Hydroxy (30.0-100.0) ng/mL PTH Intact (14.0-72.0) pg/mL Microbiology - Last 24 Hours (Table) 07/01/24 14:32 Blood Culture - Preliminary Blood Assessment and Plan Assessment: Acute on chronic hypoxemic and hypercapnic respiratory failure, secondary to acute COPD exacerbation and extensive of right sided healthcare associated pneumonia. Today's chest x-ray continues to show improvement Acute hypercapnic encephalopathy Severe chronic obstructive pulmonary disease Chronic hypoxemic respiratory failure, secondary to above, normally on 1.5 L/min nasal cannula while at home Obstructive sleep apnea, reportedly noncompliant with home CPAP machine History of heart failure, with borderline mildly impaired left ventricular ejection fraction of 45 to 50% Pulmonary hypertension Chronic atrial fibrillation, anticoagulated with Eliquis Hyperlipidemia Hypertension Plan: The patient was seen and evaluated Chest x-ray, labs and medications reviewed Nasal canulla on currently on 3L O2, continue PM BiPAP Continue Zosyn Continue D5W at 40 mL/h We will continue to follow
[2024-07-05] MEDS: CINACALCET 30 MG TAB PO ONE (10:25)
[2024-07-05] MEDS: DEXTROSE 5% IN WATER 1,000 ML IV SCH (10:26)
[2024-07-05 11:33] LABS: Glucose,Whole Blood 163 mg/dL (70-110)
[2024-07-05 12:47] LABS: Free Kappa Lt Chain Qnt, Serum 2.39 mg/dL (0.33-1.94); Free Lambda Lt Chain Qnt, Seru 2.18 mg/dL (0.57-2.63)
--- NOTE | 2024-07-05 13:17 | P.PN ---
Subjective Progress Note Date: 07/04/24 Principal diagnosis: Reason for follow-up is pneumonia Patient is a 78-year female with a past medical history significant for hypertension COPD atrial fibrillation, obstructive sleep apnea and recent admission to the hospital April 2024 for COPD exacerbation patient has been brought into the ER by EMS as the patient was noticed to be lethargic and sleepy at home patient was noted to be short of breath, patient did have a CT with evidence of extensive consolidation concerning for pneumonia. On today's evaluation that is 07/04/2024, Patient is afebrile patient is c urrently on BiPAP with 40% FiO2, patient is hemodynamic stable not requiring any pressor support, pain recommend no shortness of breath denies any chest pain no worsening cough no vomiting or diarrhea has been reported by the nursing staff. Patient white count is slightly up to 12.7 today creatinine is 1.58 blood cultures currently pending Objective - Vital Signs Vital signs: Vital Signs Temp 98.6 F 07/04/24 06:00 Pulse 90 07/04/24 10:58 Resp 27 H 07/04/24 10:30 BP 134/71 07/04/24 10:30 Pulse Ox 92 L 07/04/24 10:30 FiO2 40 07/04/24 10:45 Intake & Output 07/03/24 07/04/24 07/04/24 18:59 06:59 18:59 Intake Total 480 600 400 Output Total 380 480 225 Balance 100 120 175 Weight 94.8 kg Intake: IV 30 550 400 Dextrose 5% in Water 1, 550 400 000 ml @ 100 mls/hr IV . Q10H [facility] Rx#:[id number] Sodium Chloride 0.9% 1, 30 000 ml @ 50 mls/hr IV . Q20H [facility] Rx#:[id number] Intake, IV Titration 450 50 Amount Dextrose 5% in Water 1, 450 50 000 ml @ 100 mls/hr IV . Q10H [facility] Rx#:[id number] Output: Urine 380 480 225 Other: Voiding Method Indwelling Catheter Indwelling Catheter Indwelling Catheter - Exam GENERAL DESCRIPTION: An elderly female lying in bed in no distress RESPIRATORY SYSTEM: Unlabored breathing , decreased breath sounds at bases HEART: S1 S2 regular rate and rhythm , ABDOMEN: Soft , no tenderness EXTREMITIES: No edema feet - Labs CBC & Chem 7: 07/05/24 06:22 07/05/24 06:16 Labs: Abnormal Lab Results - Last 24 Hours (Table) 07/03/24 07/03/24 07/04/24 Range/Units 17:26 23:22 05:27 WBC 12.7 H (3.8-10.6) k/uL RBC 3.69 L (3.80-5.40) m/uL Hgb 11.2 L (11.4-16.0) gm/dL MCV 102.2 H (80.0-100.0) fL MCHC 29.6 L (31.0-37.0) g/dL Neutrophils # 11.8 H (1.3-7.7) k/uL Lymphocytes # 0.4 L (1.0-4.8) k/uL Sodium (137-145) mmol/L Carbon Dioxide (22-30) mmol/L BUN (7-17) mg/dL Creatinine (0.52-1.04) mg/dL Glucose (74-99) mg/dL POC Glucose (mg/dL) 176 H 178 H (70-110) mg/dL Calcium (8.4-10.2) mg/dL Total Protein (PEP) (6.2-8.2) g/dL PTH Intact (14.0-72.0) pg/mL 07/04/24 07/04/24 07/04/24 Range/Units 05:27 07:32 07:32 WBC (3.8-10.6) k/uL RBC (3.80-5.40) m/uL Hgb (11.4-16.0) gm/dL MCV (80.0-100.0) fL MCHC (31.0-37.0) g/dL Neutrophils # (1.3-7.7) k/uL Lymphocytes # (1.0-4.8) k/uL Sodium 147 H (137-145) mmol/L Carbon Dioxide 38 H (22-30) mmol/L BUN 61 H (7-17) mg/dL Creatinine 1.58 H (0.52-1.04) mg/dL Glucose 160 H (74-99) mg/dL POC Glucose (mg/dL) (70-110) mg/dL Calcium 10.6 H (8.4-10.2) mg/dL Total Protein (PEP) 5.7 L (6.2-8.2) g/dL PTH Intact 130.0 H (14.0-72.0) pg/mL Microbiology - Last 24 Hours (Table) 07/01/24 14:32 Blood Culture - Preliminary Blood Assessment and Plan (1) Pneumonia Current Visit: Yes Status: Acute Code(s): J18.9 - PNEUMONIA, UNSPECIFIED ORGANISM SNOMED Code(s): 749688501 (2) Sepsis Current Visit: Yes Status: Acute Code(s): A41.9 - SEPSIS, UNSPECIFIED ORGANISM SNOMED Code(s): 14846298 (3) Leukocytosis Current Visit: No Status: Acute Code(s): D72.829 - ELEVATED WHITE BLOOD CELL COUNT, UNSPECIFIED SNOMED Code(s): 090569093 Plan: 1patient presented to hospital with sepsis in this patient who did have elevated white count tachycardia source is likely pneumonia with evidence of right-sided consolidation question of aspiration/gram-negative as the patient has been in and out of the hospital, gram-positive infection not entirely excluded 2-patient blood cultures are currently pending sputum has not been collected did have elevated procalcitonin 3patient is currently being treated with Zosyn, white count slightly up today and will be monitored closely creatinine is trending down Dictation was produced using [employer] dictation software. please excuse any grammatical, word or spelling errors. Time with Patient: Less than 30
--- NOTE | 2024-07-05 13:17 | P.PN ---
Subjective Progress Note Date: 07/05/24 Principal diagnosis: Reason for follow-up is pneumonia Patient is a 78-year female with a past medical history significant for hypertension COPD atrial fibrillation, obstructive sleep apnea and recent admission to the hospital April 2024 for COPD exacerbation patient has been brought into the ER by EMS as the patient was noticed to be lethargic and sleepy at home patient was noted to be short of breath, patient did have a CT with evidence of extensive consolidation concerning for pneumonia. On today's evaluation that is 07/05/2024 patient remains to be afebrile the patient is still on the BiPAP requiring 40% FiO2, the patient denies having any chest pain, occasional cough no vomiting diarrhea or any other changes reported by the nursing staff. Patient white count normalized to 8.5, creatinine has improved to 1.18 blood culture has been negative so far sputum not collected Objective - Vital Signs Vital signs: Vital Signs Temp 98.6 F 07/05/24 08:00 Pulse 84 07/05/24 11:39 Resp 14 07/05/24 11:00 BP 139/85 07/05/24 11:00 Pulse Ox 97 07/05/24 11:00 FiO2 35 07/05/24 11:35 Intake & Output 07/04/24 07/05/24 07/05/24 18:59 06:59 18:59 Intake Total 1280 320 410 Output Total 645 195 265 Balance 635 125 145 Weight 95.8 kg Intake: IV 1280 320 410 Dextrose 5% in Water 1, 1000 000 ml @ 100 mls/hr IV . Q10H [facility] Rx#:[id number] Dextrose 5% in Water 1, 80 320 280 000 ml @ 80 mls/hr IV . [id number] [facility] Rx#:[id number] Invasive Line 6 30 Piperacillin-Tazobactam 3 200 100 .375 gm In Sodium Chloride 0.9% 100 ml @ 25 mls/hr IVPB Q8HR [facility] Rx# :[id number] Output: Urine 645 195 265 Other: Voiding Method Indwelling Catheter Indwelling Catheter Indwelling Catheter # Bowel Movements 0 - Exam GENERAL DESCRIPTION: An elderly female lying in bed in no distress RESPIRATORY SYSTEM: Unlabored breathing , decreased breath sounds at bases HEART: S1 S2 regular rate and rhythm , ABDOMEN: Soft , no tenderness EXTREMITIES: No edema feet - Labs CBC & Chem 7: 07/05/24 06:22 07/05/24 06:16 Labs: Abnormal Lab Results - Last 24 Hours (Table) 07/04/24 07/04/24 07/04/24 Range/Units 07:32 07:32 18:02 RBC (3.80-5.40) m/uL Hgb (11.4-16.0) gm/dL MCV (80.0-100.0) fL MCHC (31.0-37.0) g/dL Neutrophils # (1.3-7.7) k/uL Lymphocytes # (1.0-4.8) k/uL Carbon Dioxide (22-30) mmol/L BUN (7-17) mg/dL Creatinine (0.52-1.04) mg/dL Glucose (74-99) mg/dL POC Glucose (mg/dL) 211 H (70-110) mg/dL Calcium (8.4-10.2) mg/dL Vitamin D 25-Hydroxy 8.5 L (30.0-100.0) ng/mL Free [place] LC, Quant 2.39 H (0.33-1.94) mg/dL 07/05/24 07/05/24 07/05/24 Range/Units 05:46 06:16 06:22 RBC 3.43 L (3.80-5.40) m/uL Hgb 10.4 L (11.4-16.0) gm/dL MCV 101.2 H (80.0-100.0) fL MCHC 29.9 L (31.0-37.0) g/dL Neutrophils # 7.9 H (1.3-7.7) k/uL Lymphocytes # 0.3 L (1.0-4.8) k/uL Carbon Dioxide 39 H (22-30) mmol/L BUN 46 H (7-17) mg/dL Creatinine 1.18 H (0.52-1.04) mg/dL Glucose 182 H (74-99) mg/dL POC Glucose (mg/dL) 197 H (70-110) mg/dL Calcium 10.5 H (8.4-10.2) mg/dL Vitamin D 25-Hydroxy (30.0-100.0) ng/mL Free [place] LC, Quant (0.33-1.94) mg/dL 07/05/24 Range/Units 11:31 RBC (3.80-5.40) m/uL Hgb (11.4-16.0) gm/dL MCV (80.0-100.0) fL MCHC (31.0-37.0) g/dL Neutrophils # (1.3-7.7) k/uL Lymphocytes # (1.0-4.8) k/uL Carbon Dioxide (22-30) mmol/L BUN (7-17) mg/dL Creatinine (0.52-1.04) mg/dL Glucose (74-99) mg/dL POC Glucose (mg/dL) 163 H (70-110) mg/dL Calcium (8.4-10.2) mg/dL Vitamin D 25-Hydroxy (30.0-100.0) ng/mL Free [place] LC, Quant (0.33-1.94) mg/dL Microbiology - Last 24 Hours (Table) 07/01/24 14:32 Blood Culture - Preliminary Blood Assessment and Plan (1) Pneumonia Current Visit: Yes Status: Acute Code(s): J18.9 - PNEUMONIA, UNSPECIFIED ORGANISM SNOMED Code(s): 049783037 (2) Sepsis Current Visit: Yes Status: Acute Code(s): A41.9 - SEPSIS, UNSPECIFIED ORGANISM SNOMED Code(s): 61099436 (3) Leukocytosis Current Visit: No Status: Acute Code(s): D72.829 - ELEVATED WHITE BLOOD CELL COUNT, UNSPECIFIED SNOMED Code(s): 897996322 Plan: 1patient presented to hospital with sepsis in this patient who did have elevated white count tachycardia source is likely pneumonia with evidence of right-sided consolidation question of aspiration/gram-negative as the patient has been in and out of the hospital, gram-positive infection not entirely excluded 2-patient blood cultures are currently pending sputum has not been collected did have elevated procalcitonin 3patient is he is afebrile the patient white count has normalized I did have improvement in creatinine currently being treated with Zosyn and monitor clinical course closely Dictation was produced using [employer] dictation software. please excuse any grammatical, word or spelling errors. Time with Patient: Less than 30
--- NOTE | 2024-07-05 13:22 | P.PN ---
Subjective Progress Note Date: 07/05/24 This is a pleasant 78 years old female with past medical history of multiple medical problems as below. Patient presents because of altered mental status. Patient cannot provide information it was obtained from the family at bedside and records. As per and family patient was not using her BiPAP and she was sleeping most of the time yesterday around 22 hours, family got concerned and brought her to the hospital today. Patient is completely confused and cannot provide information and she has evidence of acute COPD exacerbations and she was admitted to the intensive care unit for this reason. No other information is available at now. Patient was mildly hypothermic 97.2, she is breathing fast at 30, tachycardic but blood pressure stable at 136/69. Labs reviewed showing WBC 21,000, rest of CBC is unremarkable Sodium 139, potassium 5.4. Creatinine is 1.1 pH is low 7.1, pCO2 is elevated at 98 and low pO2 at 80. Liver enzymes unremarkable Chest x-ray showing right lower lobe infiltrate. Patient is DNR and DNI and this confirmed with the family. Patient is going to be admitted to the ICU ct of brain: no acute process. Moderate to severe chronic small vessel ischemic disease. ct of chest: extensive consolidation and collapse pf the right mid and lower lung and fluid collection in RUL 07/02. Patient seen and examined. Currently on BiPAP. States she feels slightly better. Gets short of breath on minimal exertion. Labs done this morning showed WBC 13.3, hemoglobin 13, platelet count 296 sodium 143, potassium 6.1, BUN 50, creatinine 1.72 07/03. Patient seen and examined. Patient currently on BiPAP, states she is doing slightly better. Currently alert and oriented to self and place. 2D echo done showed LVEF of 65 to 70%, mild to moderate increased left ventricular wall thickness, severe right ventricle dilatation with mild right ventricular hypokinesis, RVSP of 68, moderate tricuspid regurg 07/04. Patient seen and examined. Currently on BiPAP. Continues to be l ethargic. 07/05. Patient seen and examined. Patient is lethargic but arousable, answering questions. Continues to be on BiPAP.Blood work done this morning showed WBC 8.5, hemoglobin 10.4 sodium 141, potassium 4.1, BUN 40, creatinine 1.18 REVIEW OF SYSTEMS: Cannot be obtained as patient is on BiPAP PHYSICAL EXAMINATION: GENERAL: The patient is alert and oriented x1-2, ill looking, on BiPAP HEENT: Pupils are round and equally reacting to light. EOMI. No scleral icterus. No conjunctival pallor. Normocephalic, atraumatic. No pharyngeal erythema. No thyromegaly. CARDIOVASCULAR: S1 and S2 present. No murmurs, rubs, or gallops. PULMONARY: Chest is clear to auscultation, no wheezing or crackles. ABDOMEN: Soft, nontender, nondistended, normoactive bowel sounds. No palpable organomegaly. MUSCULOSKELETAL: No joint swelling or deformity. EXTREMITIES: No cyanosis, clubbing, or pedal edema. NEUROLOGICAL: Gross neurological examination did not reveal any focal deficits. SKIN: No rashes. Assessment and plan Acute COPD exacerbation Acute hypoxic hypercapnic respiratory failure Acute respiratory acidosis Hyperkalemia Hypercalcemia Acute kidney injury Hypertension Pulmonary hypertension Chronic hypoxic respiratory failure Chronic atrial fibrillation Hyperlipidemia History of obstructive sleep apnea History of coronary artery disease s/p cardiac cath Monitor vital signs Monitor CBC Monitor CMP Continue telemetry monitoring Continue bronchopulmonary hygiene Continues with BiPAP as needed Hyperkalemia protocol initiated Strict I's and O's, daily weights 2D echo done showed LVEF of 65 to 70%, mild to moderate increased left ventricular wall thickness, severe right ventricle dilatation with mild right ventricular hypokinesis, RVSP of 68, moderate tricuspid regurg Continue D5W, Continue IV Zosyn Nephrology following Pulmonology following ID following Labs and medication were reviewed.. Continue same treatment. Continue with symptomatic treatment. Resume home medication. Monitor labs and vitals. DVT and GI prophylaxis. Further recommendations as per clinical course of the patient Dictation was produced using [employer] dictation software. please excuse any grammatical, word or spelling errors. Objective - Vital Signs Vital signs: Vital Signs Temp 98.6 F 07/05/24 08:00 Pulse 84 07/05/24 11:39 Resp 14 07/05/24 11:00 BP 139/85 07/05/24 11:00 Pulse Ox 97 07/05/24 11:00 FiO2 35 07/05/24 11:35 Intake & Output 07/04/24 07/05/24 07/05/24 18:59 06:59 18:59 Intake Total 1280 320 410 Output Total 645 195 265 Balance 635 125 145 Weight 95.8 kg Intake: IV 1280 320 410 Dextrose 5% in Water 1, 1000 000 ml @ 100 mls/hr IV . Q10H [facility] Rx#:[id number] Dextrose 5% in Water 1, 80 320 280 000 ml @ 80 mls/hr IV . [id number] [facility] Rx#:[id number] Invasive Line 6 30 Piperacillin-Tazobactam 3 200 100 .375 gm In Sodium Chloride 0.9% 100 ml @ 25 mls/hr IVPB Q8HR [facility] Rx# :[id number] Output: Urine 645 195 265 Other: Voiding Method Indwelling Catheter Indwelling Catheter Indwelling Catheter # Bowel Movements 0 - Labs CBC & Chem 7: 07/05/24 06:22 07/05/24 06:16 Labs: Abnormal Lab Results - Last 24 Hours (Table) 07/04/24 07/04/24 07/04/24 Range/Units 07:32 07:32 18:02 RBC (3.80-5.40) m/uL Hgb (11.4-16.0) gm/dL MCV (80.0-100.0) fL MCHC (31.0-37.0) g/dL Neutrophils # (1.3-7.7) k/uL Lymphocytes # (1.0-4.8) k/uL Carbon Dioxide (22-30) mmol/L BUN (7-17) mg/dL Creatinine (0.52-1.04) mg/dL Glucose (74-99) mg/dL POC Glucose (mg/dL) 211 H (70-110) mg/dL Calcium (8.4-10.2) mg/dL Vitamin D 25-Hydroxy 8.5 L (30.0-100.0) ng/mL Free [place] LC, Quant 2.39 H (0.33-1.94) mg/dL 07/05/24 07/05/24 07/05/24 Range/Units 05:46 06:16 06:22 RBC 3.43 L (3.80-5.40) m/uL Hgb 10.4 L (11.4-16.0) gm/dL MCV 101.2 H (80.0-100.0) fL MCHC 29.9 L (31.0-37.0) g/dL Neutrophils # 7.9 H (1.3-7.7) k/uL Lymphocytes # 0.3 L (1.0-4.8) k/uL Carbon Dioxide 39 H (22-30) mmol/L BUN 46 H (7-17) mg/dL Creatinine 1.18 H (0.52-1.04) mg/dL Glucose 182 H (74-99) mg/dL POC Glucose (mg/dL) 197 H (70-110) mg/dL Calcium 10.5 H (8.4-10.2) mg/dL Vitamin D 25-Hydroxy (30.0-100.0) ng/mL Free [place] LC, Quant (0.33-1.94) mg/dL 07/05/24 Range/Units 11:31 RBC (3.80-5.40) m/uL Hgb (11.4-16.0) gm/dL MCV (80.0-100.0) fL MCHC (31.0-37.0) g/dL Neutrophils # (1.3-7.7) k/uL Lymphocytes # (1.0-4.8) k/uL Carbon Dioxide (22-30) mmol/L BUN (7-17) mg/dL Creatinine (0.52-1.04) mg/dL Glucose (74-99) mg/dL POC Glucose (mg/dL) 163 H (70-110) mg/dL Calcium (8.4-10.2) mg/dL Vitamin D 25-Hydroxy (30.0-100.0) ng/mL Free [place] LC, Quant (0.33-1.94) mg/dL Microbiology - Last 24 Hours (Table) 07/01/24 14:32 Blood Culture - Preliminary Blood
--- NOTE | 2024-07-05 13:27 | XR ---
EXAMINATION TYPE: XR chest 1V portable DATE OF EXAM: 07/05/2024 COMPARISON: 07/05/2024 HISTORY: Shortness of breath TECHNIQUE: Single frontal view of the chest is obtained. FINDINGS: Bilateral consolidation and moderate right pleural effusion. No pneumothorax. The heart is enlarged. Prominence of the hilum stable. Underlying mass or adenopathy not excluded. Could be secon freddie to pulmonary arterial hypertension. Osseous structures stable. IMPRESSION: Stable bilateral consolidation and moderate right pleural effusion.
[2024-07-05 17:59] LABS: Glucose,Whole Blood 163 mg/dL (70-110)
[2024-07-05] MEDS ORDERED: NYSTATIN 100,000 UNIT/GM POWD 15 GM TOPICAL PRN (18:19)
[2024-07-05] MEDS: FUROSEMIDE 10 MG/ML 4 ML VIAL IV STA (18:31)
[2024-07-05 18:39] LABS: Vitamin D, 1, 25-Dihydroxy 34 pg/mL (20 - 79)
[2024-07-05] MEDS: bisacodyL 10 MG SUPP RECTAL STA (21:04)
[2024-07-05] MEDS: SENNOSIDES-DOCUSATE SODIUM 1 EACH TAB PO SCH (21:12)
[2024-07-05 23:47] LABS: Glucose,Whole Blood 155 mg/dL (70-110)
[2024-07-06 03:49] LABS: Basophils % (A) 0 %; Eosinophils % (A) 0 %; HCT 33.9 % (34.0-46.0); HGB 10.7 gm/dL (11.4-16.0); Hypochromasia Marked; Lymphocytes # (A) 0.2 k/uL (1.0-4.8); Lymphocytes % (A) 3 %; MCHC 31.5 g/dL (31.0-37.0); MCV 98.3 fL (80.0-100.0); Mean Platelet Volume 6.9; Monocytes # (A) 0.2 k/uL (0-1.0); Monocytes % (A) 4 %; Neutrophils # (A) 6.3 k/uL (1.3-7.7); Neutrophils % (A) 92 %; Platelet Count 241 k/uL (150-450); RBC 3.45 m/uL (3.80-5.40); RDW 13.5 % (11.5-15.5); WBC 6.8 k/uL (3.8-10.6)
[2024-07-06 04:00] LABS: ALT 10 U/L (4-34); AST 14 U/L (14-36); African American GFR (CKD) 56 (>60 ml/min/1.73 sqM); Alkaline Phosphatase 56 U/L (38-126); Blood Urea Nitrogen 44 mg/dL (7-17); Calcium 10.5 mg/dL (8.4-10.2); Chloride 96 mmol/L (98-107); Glucose 138 mg/dL (74-99); Non-African American GFR(CKD) 49 (>60 ml/min/1.73 sqM); Potassium 3.5 mmol/L (3.5-5.1); Sodium 140 mmol/L (137-145); Total Protein 5.3 g/dL (6.3-8.2)
[2024-07-06 04:08] LABS: Anion Gap 3 mmol/L
[2024-07-06 04:16] LABS: Carbon Dioxide 41 mmol/L (22-30)
[2024-07-06 05:11] LABS: Glucose,Whole Blood 135 mg/dL (70-110)
[2024-07-06] MEDS: POTASSIUM CHLORIDE 10 MEQ in WATER FOR INJECTION 1 100ML.BAG IVPB SCH (05:46)
[2024-07-06 07:39] LABS: ABG Base Excess 18.1 mmol/L; ABG Oxygen Saturation 96.8 % (94-97); ABG PCO2 66 mmHg (35-45); ABG PH 7.44 (7.35-7.45); ABG PO2 79 mmHg (83-108); ABG TCO2 47 mmol/L (19-24); Allen Test Performed? Yes
[2024-07-06 07:42] LABS: ABG HCO3 45 mmol/L (21-25)
--- NOTE | 2024-07-06 07:56 | XR ---
EXAMINATION TYPE: XR chest 1V portable DATE OF EXAM: 07/06/2024 Comparison: 07/05/2024 Clinical History: 78-year-old female bipap Findings: Heart is enlarged. Uncoiling bilateral hilar limits, probably pulmonary arterial hypertension. Chroni c fracture deformity surgical neck proximal right humerus. Previous right-sided thoracotomy change. E xtensive pleural parenchymal opacity persists right mid and lower lung. Some patchy retrocardiac opac ity remains. Impression: COPD with similar extensive pleural-parenchymal opacity in the right mid and lower lung. Some mild pa tchy atelectasis/infiltrate in the retrocardiac region similar as well.
[2024-07-06] MEDS ORDERED: SODIUM CHLORIDE 0.9% 1,000 ML IV SCH (10:00)
--- NOTE | 2024-07-06 10:01 | P.PN ---
Subjective Patient is seen in follow-up for acute kidney injury. Renal function improved. On nasal cannula. Sodium level 140. Nonoliguric. Currently off diuretics. On D5W at 40 cc an hour. Bicarb level 41. Vital signs are stable. General: No acute distress. HEENT: Head exam is unremarkable. On nasal cannula. LUNGS: Scattered rhonchi. HEART: Rate and Rhythm are regular. ABDOMEN: No distention. EXTREMITITES: No edema. Objective - Vital Signs Vital signs: Vital Signs Temp 98.7 F 07/06/24 04:00 Pulse 92 07/06/24 09:00 Resp 19 07/06/24 09:00 BP 151/88 07/06/24 09:00 Pulse Ox 92 L 07/06/24 09:00 FiO2 40 07/06/24 08:00 Intake & Output 07/05/24 07/06/24 07/06/24 18:59 06:59 18:59 Intake Total 910 480 80 Output Total 470 2500 225 Balance 440 [id number] Weight 95.8 kg 95.3 kg Intake: IV 880 480 80 Dextrose 5% in Water 1, 360 480 80 000 ml @ 40 mls/hr IV . Q24H [facility] Rx#:[id number] Dextrose 5% in Water 1, 280 000 ml @ 80 mls/hr IV . [id number] [facility] Rx#:[id number] Invasive Line 6 40 Piperacillin-Tazobactam 3 200 .375 gm In Sodium Chloride 0.9% 100 ml @ 25 mls/hr IVPB Q8HR [facility] Rx# :[id number] Oral 30 Output: Urine 470 2500 225 Other: Voiding Method Indwelling Catheter Indwelling Catheter # Bowel Movements 0 0 - Labs CBC & Chem 7: 07/06/24 03:25 07/06/24 03:25 Labs: Abnormal Lab Results - Last 24 Hours (Table) 07/04/24 07/05/24 07/05/24 Range/Units 07:32 11:31 17:58 RBC (3.80-5.40) m/uL Hgb (11.4-16.0) gm/dL Hct (34.0-46.0) % Lymphocytes # (1.0-4.8) k/uL ABG pCO2 (35-45) mmHg ABG pO2 (83-108) mmHg ABG HCO3 (21-25) mmol/L ABG Total CO2 (19-24) mmol/L Chloride (98-107) mmol/L Carbon Dioxide (22-30) mmol/L BUN (7-17) mg/dL Creatinine (0.52-1.04) mg/dL Glucose (74-99) mg/dL POC Glucose (mg/dL) 163 H 163 H (70-110) mg/dL Calcium (8.4-10.2) mg/dL Total Protein (6.3-8.2) g/dL Albumin (3.5-5.0) g/dL Free [place] LC, Quant 2.39 H (0.33-1.94) mg/dL 07/05/24 07/06/24 07/06/24 Range/Units 23:45 03:25 03:25 RBC 3.45 L (3.80-5.40) m/uL Hgb 10.7 L (11.4-16.0) gm/dL Hct 33.9 L (34.0-46.0) % Lymphocytes # 0.2 L (1.0-4.8) k/uL ABG pCO2 (35-45) mmHg ABG pO2 (83-108) mmHg ABG HCO3 (21-25) mmol/L ABG Total CO2 (19-24) mmol/L Chloride 96 L (98-107) mmol/L Carbon Dioxide 41 H* (22-30) mmol/L BUN 44 H (7-17) mg/dL Creatinine 1.09 H (0.52-1.04) mg/dL Glucose 138 H (74-99) mg/dL POC Glucose (mg/dL) 155 H (70-110) mg/dL Calcium 10.5 H (8.4-10.2) mg/dL Total Protein 5.3 L (6.3-8.2) g/dL Albumin 3.0 L (3.5-5.0) g/dL Free [place] LC, Quant (0.33-1.94) mg/dL 07/06/24 07/06/24 Range/Units 05:09 07:36 RBC (3.80-5.40) m/uL Hgb (11.4-16.0) gm/dL Hct (34.0-46.0) % Lymphocytes # (1.0-4.8) k/uL ABG pCO2 66 H (35-45) mmHg ABG pO2 79 L (83-108) mmHg ABG HCO3 45 H* (21-25) mmol/L ABG Total CO2 47 H (19-24) mmol/L Chloride (98-107) mmol/L Carbon Dioxide (22-30) mmol/L BUN (7-17) mg/dL Creatinine (0.52-1.04) mg/dL Glucose (74-99) mg/dL POC Glucose (mg/dL) 135 H (70-110) mg/dL Calcium (8.4-10.2) mg/dL Total Protein (6.3-8.2) g/dL Albumin (3.5-5.0) g/dL Free [place] LC, Quant (0.33-1.94) mg/dL Assessment and Plan Plan: Assessment: 1. Acute kidney injury secondary to hemodynamic ATN. Baseline creatinine 0.8 from April 2024 and peaked at 2.05 this admission -1.09 today. Nonoliguric. No hydronephrosis noted on kidney ultrasound. Left kidney atrophic. 2. Hyperkalemia secondary to acute kidney injury, losartan and potassium supplementation. Resolved. Now potassium on the lower side and being replaced. 3. Acute on chronic hypoxic and hypercapnic respiratory failure. Improved. Now on nasal cannula. 4. Pneumonia s/p antibiotics. 5. History of right upper lobe lobectomy. 6. Chronic diastolic CHF with moderate tricuspid regurgitation and severe pulmonary hypertension. 7. Hypernatremia from lack of oral water intake. Improved with D5W. 8. Hypercalcemia. Calcium level 10.5 today. Corrected calcium 11.3. Not on any calcium or vitamin D supplementation. Possibly volume contraction. PTH el evated at 130 concerning for primary hyperparathyroidism. Vitamin D 8.5. PJ level 17. Calcitriol level 34. [place] lambda light chain ratio not elevated. 9. Metabolic alkalosis secondary to volume contraction and partially compensatory for underlying respiratory acidosis. Received a dose of IV Lasix yesterday as well. Patient also hypokalemic and hypochloremic which will contribute to the alkalosis. Plan: Add Diamox 250 mg twice daily. Replace potassium. Add Sensipar 30 mg once daily. Parathyroid nuclear scan pending. Avoid calcium or vitamin D supplementation. Repeat labs in the morning.
[2024-07-06] MEDS: CINACALCET 30 MG TAB PO ONE (10:32)
[2024-07-06] MEDS: acetaZOLAMIDE 250 MG TAB PO SCH (10:32)
--- NOTE | 2024-07-06 11:37 | P.PN ---
Subjective Progress Note Date: 07/06/24 Principal diagnosis: COPD, pneumonia This is a 78-year-old female with a history of severe COPD, chronic hypoxemic and hypercapnic respiratory failure, and obstructive sleep apnea syndrome. Patient is a NO CODE. Overnight on BiPap patients O2 saturation dropped to 70s briefly while taking medications. The patient was on BiPAP overnight, 16/6 was weaned to FiO2 40%, and transitioned to NC on 3L O2 this morning, and after lying flat her saturations decreased to high 70s, and she was placed back on BiPAP 16/6 and FiO2 35%. Blood gases pO2 79, pCO2 66, pH 7.44. Her chest x-ray is showing continuous improvement in the opacification of the right upper and mid lung. Some opacification in the right perihilar and right lower lung. Labs, are reviewed, and show sodium 140, potassium 3.5, chloride 96, bicarbonate 41, BUN 44, creatinine 1.09. Medications, x-rays, and all labs are reviewed. Prognosis is poor. Objective - Vital Signs Vital signs: Vital Signs Temp 98.7 F 07/06/24 04:00 Pulse 82 07/06/24 11:00 Resp 21 07/06/24 11:00 BP 162/96 07/06/24 11:00 Pulse Ox 96 07/06/24 11:00 FiO2 40 07/06/24 11:00 Intake & Output 07/05/24 07/06/24 07/06/24 18:59 06:59 18:59 Intake Total 910 480 400 Output Total 470 2500 385 Balance 440 15 Weight 95.8 kg 95.3 kg Intake: IV 880 480 200 Dextrose 5% in Water 1, 360 480 200 000 ml @ 40 mls/hr IV . Q24H [facility] Rx#:[id number] Dextrose 5% in Water 1, 280 000 ml @ 80 mls/hr IV . [id number] [facility] Rx#:[id number] Invasive Line 6 40 Piperacillin-Tazobactam 3 200 .375 gm In Sodium Chloride 0.9% 100 ml @ 25 mls/hr IVPB Q8HR [facility] Rx# :[id number] Intake, IV Titration 200 Amount Potassium Chloride 10 meq 200 In Water For Injection 1 100ml.bag @ 100 mls/hr IVPB Q1HR [facility] Rx#: [id number] Oral 30 Output: Urine 470 2500 385 Other: Voiding Method Indwelling Catheter Indwelling Catheter # Bowel Movements 0 0 - Exam GENERAL EXAM: Awake, alert, on BiPAP, nurse at the bedside. HEAD: Normocephalic and atraumatic EYES: Normal reaction of pupils, equal size. NOSE: Clear with pink turbinates. THROAT: No erythema or exudates. NECK: No masses, no JVD. CHEST: No chest wall deformity. LUNGS: Equal air entry with expiratory wheezes and rhonchi, diminished right basilar lung sounds. On BiPAP 16/6 and FiO2 35%. CVS: S1 and S2 normal with no audible murmur, regular rhythm. No extra heart sounds ABDOMEN: No hepatosplenomegaly, active bowel sounds, no guarding or rigidity. SPINE: No scoliosis or deformity SKIN: No rashes CENTRAL NERVOUS SYSTEM no focal deficits, tone is weak in all 4 extremities. EXTREMITIES: There is no peripheral edema, clubbing, or cyanosis. Peripheral pulses are intact. - Labs CBC & Chem 7: 07/06/24 03:25 07/06/24 03:25 Labs: Abnormal Lab Results - Last 24 Hours (Table) 07/04/24 07/05/24 07/05/24 Range/Units 07:32 11:31 17:58 RBC (3.80-5.40) m/uL Hgb (11.4-16.0) gm/dL Hct (34.0-46.0) % Lymphocytes # (1.0-4.8) k/uL ABG pCO2 (35-45) mmHg ABG pO2 (83-108) mmHg ABG HCO3 (21-25) mmol/L ABG Total CO2 (19-24) mmol/L Chloride (98-107) mmol/L Carbon Dioxide (22-30) mmol/L BUN (7-17) mg/dL Creatinine (0.52-1.04) mg/dL Glucose (74-99) mg/dL POC Glucose (mg/dL) 163 H 163 H (70-110) mg/dL Calcium (8.4-10.2) mg/dL Total Protein (6.3-8.2) g/dL Albumin (3.5-5.0) g/dL Free [place] LC, Quant 2.39 H (0.33-1.94) mg/dL 07/05/24 07/06/2424 Range/Units 23:45 03:25 03:25 RBC 3.45 L (3.80-5.40) m/uL Hgb 10.7 L (11.4-16.0) gm/dL Hct 33.9 L (34.0-46.0) % Lymphocytes # 0.2 L (1.0-4.8) k/uL ABG pCO2 (35-45) mmHg ABG pO2 (83-108) mmHg ABG HCO3 (21-25) mmol/L ABG Total CO2 (19-24) mmol/L Chloride 96 L (98-107) mmol/L Carbon Dioxide 41 H* (22-30) mmol/L BUN 44 H (7-17) mg/dL Creatinine 1.09 H (0.52-1.04) mg/dL Glucose 138 H (74-99) mg/dL POC Glucose (mg/dL) 155 H (70-110) mg/dL Calcium 10.5 H (8.4-10.2) mg/dL Total Protein 5.3 L (6.3-8.2) g/dL Albumin 3.0 L (3.5-5.0) g/dL Free [place] LC, Quant (0.33-1.94) mg/dL 07/06/24 07/06/24 Range/Units 05:09 07:36 RBC (3.80-5.40) m/uL Hgb (11.4-16.0) gm/dL Hct (34.0-46.0) % Lymphocytes # (1.0-4.8) k/uL ABG pCO2 66 H (35-45) mmHg ABG pO2 79 L (83-108) mmHg ABG HCO3 45 H* (21-25) mmol/L ABG Total CO2 47 H (19-24) mmol/L Chloride (98-107) mmol/L Carbon Dioxide (22-30) mmol/L BUN (7-17) mg/dL Creatinine (0.52-1.04) mg/dL Glucose (74-99) mg/dL POC Glucose (mg/dL) 135 H (70-110) mg/dL Calcium (8.4-10.2) mg/dL Total Protein (6.3-8.2) g/dL Albumin (3.5-5.0) g/dL Free [place] LC, Quant (0.33-1.94) mg/dL Assessment and Plan Assessment: Acute on chronic hypoxemic and hypercapnic respiratory failure, secondary to acute COPD exacerbation and extensive of right sided healthcare associated pneumonia. Today's chest x-ray continues to show improvement Acute hypercapnic encephalopathy Severe chronic obstructive pulmonary disease Chronic hypoxemic respiratory failure, secondary to above, normally on 1.5 L/min nasal cannula while at home Obstructive sleep apnea, reportedly noncompliant with home CPAP machine History of heart failure, with borderline mildly impaired left ventricular ejection fraction of 45 to 50% Pulmonary hypertension Chronic atrial fibrillation, anticoagulated with Eliquis Hyperlipidemia Hypertension Plan: The patient was seen and evaluated Chest x-ray, labs and medications reviewed Currently on BiPAP 16/6 with FiO2 35%. Can attempt Nasal canulla if tolerated Zosyn completed, WBC is WNL Continue D5W at 40 mL/h We will continue to follow, consider downgrading tomorrow if improving Time with Patient: Greater than 30
[2024-07-06 12:13] LABS: Glucose,Whole Blood 134 mg/dL (70-110)
--- NOTE | 2024-07-06 13:17 | P.PN ---
Subjective Progress Note Date: 07/06/24 This is a pleasant 78 years old female with past medical history of multiple medical problems as below. Patient presents because of altered mental status. Patient cannot provide information it was obtained from the family at bedside and records. As per and family patient was not using her BiPAP and she was sleeping most of the time yesterday around 22 hours, family got concerned and brought her to the hospital today. Patient is completely confused and cannot provide information and she has evidence of acute COPD exacerbations and she was admitted to the intensive care unit for this reason. No other information is available at now. Patient was mildly hypothermic 97.2, she is breathing fast at 30, tachycardic but blood pressure stable at 136/69. Labs reviewed showing WBC 21,000, rest of CBC is unremarkable Sodium 139, potassium 5.4. Creatinine is 1.1 pH is low 7.1, pCO2 is elevated at 98 and low pO2 at 80. Liver enzymes unremarkable Chest x-ray showing right lower lobe infiltrate. Patient is DNR and DNI and this confirmed with the family. Patient is going to be admitted to the ICU ct of brain: no acute process. Moderate to severe chronic small vessel ischemic disease. ct of chest: extensive consolidation and collapse pf the right mid and lower lung and fluid collection in RUL 07/02. Patient seen and examined. Currently on BiPAP. States she feels slightly better. Gets short of breath on minimal exertion. Labs done this morning showed WBC 13.3, hemoglobin 13, platelet count 296 sodium 143, potassium 6.1, BUN 50, creatinine 1.72 07/03. Patient seen and examined. Patient currently on BiPAP, states she is doing slightly better. Currently alert and oriented to self and place. 2D echo done showed LVEF of 65 to 70%, mild to moderate increased left ventricular wall thickness, severe right ventricle dilatation with mild right ventricular hypokinesis, RVSP of 68, moderate tricuspid regurg 07/04. Patient seen and examined. Currently on BiPAP. Continues to be l ethargic. 07/05. Patient seen and examined. Patient is lethargic but arousable, answering questions. Continues to be on BiPAP.Blood work done this morning showed WBC 8.5, hemoglobin 10.4 sodium 141, potassium 4.1, BUN 40, creatinine 1.18 07/06. Patient seen and examined.. Continues to be on BiPAP. Blood work done this morning showed WC 6.8, hemoglobin 10.7, sodium 140, potassium 3.5, CO2 41, BUN 44, creatinine 1.09. Continues to be lethargic. REVIEW OF SYSTEMS: Cannot be obtained as patient is on BiPAP PHYSICAL EXAMINATION: GENERAL: The patient is alert and oriented x1-2, ill looking, on BiPAP HEENT: Pupils are round and equally reacting to light. EOMI. No scleral icterus. No conjunctival pallor. Normocephalic, atraumatic. No pharyngeal erythema. No thyromegaly. CARDIOVASCULAR: S1 and S2 present. No murmurs, rubs, or gallops. PULMONARY: Chest is clear to auscultation, no wheezing or crackles. ABDOMEN: Soft, nontender, nondistended, normoactive bowel sounds. No palpable organomegaly. MUSCULOSKELETAL: No joint swelling or deformity. EXTREMITIES: No cyanosis, clubbing, or pedal edema. NEUROLOGICAL: Gross neurological examination did not reveal any focal deficits. SKIN: No rashes. Assessment and plan Acute COPD exacerbation Acute hypoxic hypercapnic respiratory failure Acute respiratory acidosis Hyperkalemia Hypercalcemia Acute kidney injury Hypertension Pulmonary hypertension Chronic hypoxic respiratory failure Chronic atrial fibrillation Hyperlipidemia History of obstructive sleep apnea History of coronary artery disease s/p cardiac cath Monitor vital signs Monitor CBC Monitor CMP Continue telemetry monitoring Continue bronchopulmonary hygiene Continues with BiPAP as needed Hyperkalemia protocol initiated Strict I's and O's, daily weights 2D echo done showed LVEF of 65 to 70%, mild to moderate increased left ventricular wall thickness, severe right ventricle dilatation with mild right ventricular hypokinesis, RVSP of 68, moderate tricuspid regurg Continue D5W, Added 250 mg twice daily,Sensipar 30 mg once daily. Continue IV Zosyn Nephrology following Pulmonology following ID following Labs and medication were reviewed.. Continue same treatment. Continue with symptomatic treatment. Resume home medication. Monitor labs and vitals. DVT and GI prophylaxis. Further recommendations as per clinical course of the pat ient Dictation was produced using [employer] dictation software. please excuse any grammatical, word or spelling errors. Objective - Vital Signs Vital signs: Vital Signs Temp 98.7 F 07/06/24 04:00 Pulse 95 07/06/24 10:00 Resp 27 H 07/06/24 10:00 BP 162/96 07/06/24 10:00 Pulse Ox 87 L 07/06/24 10:00 FiO2 40 07/06/24 08:00 Intake & Output 07/05/24 07/06/24 07/06/24 18:59 06:59 18:59 Intake Total 910 480 260 Output Total 470 2500 325 Balance 440 Weight 95.8 kg 95.3 kg Intake: IV 880 480 160 Dextrose 5% in Water 1, 360 480 160 000 ml @ 40 mls/hr IV . Q24H [facility] Rx#:[id number] Dextrose 5% in Water 1, 280 000 ml @ 80 mls/hr IV . [id number] [facility] Rx#:[id number] Invasive Line 6 40 Piperacillin-Tazobactam 3 200 .375 gm In Sodium Chloride 0.9% 100 ml @ 25 mls/hr IVPB Q8HR [facility] Rx# :[id number] Intake, IV Titration 100 Amount Potassium Chloride 10 meq 100 In Water For Injection 1 100ml.bag @ 100 mls/hr IVPB Q1HR [facility] Rx#: [id number] Oral 30 Output: Urine 470 2500 325 Other: Voiding Method Indwelling Catheter Indwelling Catheter # Bowel Movements 0 0 - Labs CBC & Chem 7: 07/06/24 03:25 07/06/24 03:25 Labs: Abnormal Lab Results - Last 24 Hours (Table) 07/04/24 07/05/24 07/05/24 Range/Units 07:32 11:31 17:58 RBC (3.80-5.40) m/uL Hgb (11.4-16.0) gm/dL Hct (34.0-46.0) % Lymphocytes # (1.0-4.8) k/uL ABG pCO2 (35-45) mmHg ABG pO2 (83-108) mmHg ABG HCO3 (21-25) mmol/L ABG Total CO2 (19-24) mmol/L Chloride (98-107) mmol/L Carbon Dioxide (22-30) mmol/L BUN (7-17) mg/dL Creatinine (0.52-1.04) mg/dL Glucose (74-99) mg/dL POC Glucose (mg/dL) 163 H 163 H (70-110) mg/dL Calcium (8.4-10.2) mg/dL Total Protein (6.3-8.2) g/dL Albumin (3.5-5.0) g/dL Free [place] LC, Quant 2.39 H (0.33-1.94) mg/dL 07/05/24 07/06/24 07/06/24 Range/Units 23:45 03:25 03:25 RBC 3.45 L (3.80-5.40) m/uL Hgb 10.7 L (11.4-16.0) gm/dL Hct 33.9 L (34.0-46.0) % Lymphocytes # 0.2 L (1.0-4.8) k/uL ABG pCO2 (35-45) mmHg ABG pO2 (83-108) mmHg ABG HCO3 (21-25) mmol/L ABG Total CO2 (19-24) mmol/L Chloride 96 L (98-107) mmol/L Carbon Dioxide 41 H* (22-30) mmol/L BUN 44 H (7-17) mg/dL Creatinine 1.09 H (0.52-1.04) mg/dL Glucose 138 H (74-99) mg/dL POC Glucose (mg/dL) 155 H (70-110) mg/dL Calcium 10.5 H (8.4-10.2) mg/dL Total Protein 5.3 L (6.3-8.2) g/dL Albumin 3.0 L (3.5-5.0) g/dL Free [place] LC, Quant (0.33-1.94) mg/dL 07/06/24 07/06/24 Range/Units 05:09 07:36 RBC (3.80-5.40) m/uL Hgb (11.4-16.0) gm/dL Hct (34.0-46.0) % Lymphocytes # (1.0-4.8) k/uL ABG pCO2 66 H (35-45) mmHg ABG pO2 79 L (83-108) mmHg ABG HCO3 45 H* (21-25) mmol/L ABG Total CO2 47 H (19-24) mmol/L Chloride (98-107) mmol/L Carbon Dioxide (22-30) mmol/L BUN (7-17) mg/dL Creatinine (0.52-1.04) mg/dL Glucose (74-99) mg/dL POC Glucose (mg/dL) 135 H (70-110) mg/dL Calcium (8.4-10.2) mg/dL Total Protein (6.3-8.2) g/dL Albumin (3.5-5.0) g/dL Free [place] LC, Quant (0.33-1.94) mg/dL
[2024-07-06 17:45] LABS: Glucose,Whole Blood 166 mg/dL (70-110)
[2024-07-06 20:32] LABS: Glucose,Whole Blood 221 mg/dL (70-110)
[2024-07-06] MEDS ORDERED: bisacodyL 10 MG SUPP RECTAL PRN (21:00)
--- NOTE | 2024-07-06 21:14 | P.PN ---
Subjective Progress Note Date: 07/06/24 Principal diagnosis: Reason for follow-up is pneumonia Patient is a 78-year female with a past medical history significant for hypertension COPD atrial fibrillation, obstructive sleep apnea and recent admission to the hospital April 2024 for COPD exacerbation patient has been brought into the ER by EMS as the patient was noticed to be lethargic and sleepy at home patient was noted to be short of breath, patient did have a CT with evidence of extensive consolidation concerning for pneumonia. On today's evaluation that is 07/06/2024, Patient is afebrile this morning patient remains to be in the BiPAP denies any worsening shortness of breath or chest pain occasional cough no vomiting or diarrhea has been reported. The patient white count 6.8 creatinine 1.09 blood cultures so far negative sputum has not been collected Objective - Vital Signs Vital signs: Vital Signs Temp 97.6 F 07/06/24 20:00 Pulse 93 07/06/24 21:00 Resp 23 07/06/24 21:00 BP 152/100 07/06/24 21:00 Pulse Ox 94 L 07/06/24 20:00 FiO2 35 07/06/24 20:15 Intake & Output 07/06/24 07/06/24 07/07/24 06:59 18:59 06:59 Intake Total 480 1380 220 Output Total 2500 740 160 Balance -2019 640 60 Weight 95.3 kg Intake: IV 480 480 120 Dextrose 5% in Water 1, 480 480 120 000 ml @ 40 mls/hr IV . Q24H [facility] Rx#:[id number] Intake, IV Titration 900 100 Amount Potassium Chloride 10 meq 900 100 In Water For Injection 1 100ml.bag @ 100 mls/hr IVPB Q1HR [facility] Rx#: [id number] Output: Urine 2500 740 160 Other: Voiding Method Indwelling Catheter Indwelling Catheter # Bowel Movements 0 - Exam GENERAL DESCRIPTION: An elderly female lying in bed in no distress RESPIRATORY SYSTEM: Unlabored breathing , decreased breath sounds at bases HEART: S1 S2 regular rate and rhythm , ABDOMEN: Soft , no tenderness EXTREMITIES: No edema feet - Labs CBC & Chem 7: 07/06/24 03:25 07/06/24 03:25 Labs: Abnormal Lab Results - Last 24 Hours (Table) 07/05/24 07/06/24 07/06/24 Range/Units 23:45 03:25 03:25 RBC 3.45 L (3.80-5.40) m/uL Hgb 10.7 L (11.4-16.0) gm/dL Hct 33.9 L (34.0-46.0) % Lymphocytes # 0.2 L (1.0-4.8) k/uL ABG pCO2 (35-45) mmHg ABG pO2 (83-108) mmHg ABG HCO3 (21-25) mmol/L ABG Total CO2 (19-24) mmol/L Chloride 96 L (98-107) mmol/L Carbon Dioxide 41 H* (22-30) mmol/L BUN 44 H (7-17) mg/dL Creatinine 1.09 H (0.52-1.04) mg/dL Glucose 138 H (74-99) mg/dL POC Glucose (mg/dL) 155 H (70-110) mg/dL Calcium 10.5 H (8.4-10.2) mg/dL Total Protein 5.3 L (6.3-8.2) g/dL Albumin 3.0 L (3.5-5.0) g/dL 07/06/24 07/06/24 07/06/24 Range/Units 05:09 07:36 12:11 RBC (3.80-5.40) m/uL Hgb (11.4-16.0) gm/dL Hct (34.0-46.0) % Lymphocytes # (1.0-4.8) k/uL ABG pCO2 66 H (35-45) mmHg ABG pO2 79 L (83-108) mmHg ABG HCO3 45 H* (21-25) mmol/L ABG Total CO2 47 H (19-24) mmol/L Chloride (98-107) mmol/L Carbon Dioxide (22-30) mmol/L BUN (7-17) mg/dL Creatinine (0.52-1.04) mg/dL Glucose (74-99) mg/dL POC Glucose (mg/dL) 135 H 134 H (70-110) mg/dL Calcium (8.4-10.2) mg/dL Total Protein (6.3-8.2) g/dL Albumin (3.5-5.0) g/dL 07/06/24 07/06/24 Range/Units 17:43 20:30 RBC (3.80-5.40) m/uL Hgb (11.4-16.0) gm/dL Hct (34.0-46.0) % Lymphocytes # (1.0-4.8) k/uL ABG pCO2 (35-45) mmHg ABG pO2 (83-108) mmHg ABG HCO3 (21-25) mmol/L ABG Total CO2 (19-24) mmol/L Chloride (98-107) mmol/L Carbon Dioxide (22-30) mmol/L BUN (7-17) mg/dL Creatinine (0.52-1.04) mg/dL Glucose (74-99) mg/dL POC Glucose (mg/dL) 166 H 221 H (70-110) mg/dL Calcium (8.4-10.2) mg/dL Total Protein (6.3-8.2) g/dL Albumin (3.5-5.0) g/dL Assessment and Plan (1) Pneumonia Current Visit: Yes Status: Acute Code(s): J18.9 - PNEUMONIA, UNSPECIFIED ORGANISM SNOMED Code(s): 021058502 (2) Sepsis Current Visit: Yes Status: Acute Code(s): A41.9 - SEPSIS, UNSPECIFIED ORGANISM SNOMED Code(s): 54364700 (3) Leukocytosis Current Visit: No Status: Acute Code(s): D72.829 - ELEVATED WHITE BLOOD CELL COUNT, UNSPECIFIED SNOMED Code(s): 439375712 Plan: 1patient presented to hospital with sepsis in this patient who did have elevated white count tachycardia source is likely pneumonia with evidence of right-sided consolidation question of aspiration/gram-negative as the patient has been in and out of the hospital, gram-positive infection not entirely excluded 2-patient blood cultures are currently pending sputum has not been collected did have elevated procalcitonin 3patient is afebrile the patient white count has normalized, the patient Zosyn has been renewed and monitor clinical course closely Dictation was produced using [employer] dictation software. please excuse any grammatical, word or spelling errors. Time with Patient: Less than 30
[2024-07-06] MEDS: PIPERACILLIN-TAZOBACTAM 3.375 GM in SODIUM CHLORIDE 0.9% 100 ML IVPB SCH (21:41)
[2024-07-07 06:17] LABS: Glucose,Whole Blood 158 mg/dL (70-110)
[2024-07-07 06:29] LABS: Basophils % (A) 0 %; Eosinophils % (A) 0 %; HGB 11.4 gm/dL (11.4-16.0); Hypochromasia Slight; Lymphocytes # (A) 0.3 k/uL (1.0-4.8); Lymphocytes % (A) 2 %; MCH 31.1 pg (25.0-35.0); MCHC 31.8 g/dL (31.0-37.0); MCV 97.8 fL (80.0-100.0); Mean Platelet Volume 7.6; Monocytes # (A) 0.4 k/uL (0-1.0); Monocytes % (A) 2 %; Neutrophils # (A) 15.1 k/uL (1.3-7.7); Neutrophils % (A) 95 %; Platelet Count 236 k/uL (150-450); RBC 3.68 m/uL (3.80-5.40); RDW 13.7 % (11.5-15.5); WBC 15.8 k/uL (3.8-10.6)
[2024-07-07 06:51] LABS: Potassium 4.1 mmol/L (3.5-5.1)
[2024-07-07 06:52] LABS: African American GFR (CKD) 43 (>60 ml/min/1.73 sqM); Anion Gap 0 mmol/L; Blood Urea Nitrogen 34 mg/dL (7-17); Calcium 10.3 mg/dL (8.4-10.2); Carbon Dioxide 39 mmol/L (22-30); Chloride 90 mmol/L (98-107); Glucose 147 mg/dL (74-99); Non-African American GFR(CKD) 37 (>60 ml/min/1.73 sqM); Sodium 129 mmol/L (137-145)
[2024-07-07] MEDS: INSULIN ASPART (NovoLOG) 100 UNIT/ML VIAL SQ SCH (06:54)
--- NOTE | 2024-07-07 07:49 | XR ---
EXAMINATION TYPE: XR chest 1V portable DATE OF EXAM: 07/07/2024 COMPARISON: 07/06/2024 INDICATION: Assess lungs TECHNIQUE: Single frontal view of the chest is obtained. FINDINGS: The heart size is enlarged. The pulmonary vasculature is normal. Bibasilar subsegmental atelectasis may be present. Findings are improved from comparison. IMPRESSION: 1. Resolving bibasilar atelectasis or pneumonia. Continued follow-up is recommended
[2024-07-07] MEDS: CINACALCET 30 MG TAB PO SCH (08:57)
--- NOTE | 2024-07-07 09:15 | P.PN ---
Subjective Progress Note Date: 07/07/24 Principal diagnosis: COPD, pneumonia This is a 78-year-old female with a history of severe COPD, chronic hypoxemic and hypercapnic respiratory failure, and obstructive sleep apnea syndrome. Patient is a DO NOT RESUSCITATE/DO NOT INTUBATE. The patient was on BiPAP overn ight, 16/, FiO2 35%, and transitioned to NC on 3L O2 this morning. Her chest x- ray is showing significant improvement in the right upper and mid lung. Continued improvement of opacification in the right perihilar and right lower lung. Labs, are reviewed, and show WBC 15.8, Hgb 11.4, platelets 236, and sodium 129, potassium 4.1, chloride 90, bicarbonate 39, BUN 39, creatinine 1.37. Medications, x-rays, and all labs are reviewed. Objective - Vital Signs Vital signs: Vital Signs Temp 97.5 F L 07/07/24 08:00 Pulse 92 07/07/24 08:53 Resp 12 07/07/24 08:00 BP 156/79 07/07/24 08:00 Pulse Ox 90 L 07/07/24 08:00 FiO2 35 07/07/24 04:00 Intake & Output 07/06/24 07/07/24 07/07/24 18:59 06:59 18:59 Intake Total 1380 580 90 Output Total 740 510 75 Balance 640 70 15 Weight 100 kg Intake: IV 480 480 90 0.9 @ KVO 10 Dextrose 5% in Water 1, 480 480 80 000 ml @ 40 mls/hr IV . Q24H [facility] Rx#:[id number] Intake, IV Titration 900 100 Amount Potassium Chloride 10 meq 900 100 In Water For Injection 1 100ml.bag @ 100 mls/hr IVPB Q1HR [facility] Rx#: [id number] Output: Urine 740 510 75 Other: Voiding Method Indwelling Catheter Indwelling Catheter Indwelling Catheter - Exam GENERAL EXAM: Awake, alert, on NC, nurse at the bedside. HEAD: Normocephalic and atraumatic EYES: Normal reaction of pupils, equal size. NOSE: Clear with pink turbinates. THROAT: No erythema or exudates. NECK: No masses, no JVD. CHEST: No chest wall deformity. LUNGS: Equal air entry with expiratory wheezes and rhonchi, diminished right basilar lung sounds. On NC 3 L CVS: S1 and S2 normal with no audible murmur, regular rhythm. No extra heart sounds ABDOMEN: No hepatosplenomegaly, active bowel sounds, no guarding or rigidity. SPINE: No scoliosis or deformity SKIN: No rashes CENTRAL NERVOUS SYSTEM no focal deficits, tone is weak in all 4 extremities. EXTREMITIES: There is no peripheral edema, clubbing, or cyanosis. Peripheral pulses are intact. - Labs CBC & Chem 7: 07/07/24 05:23 07/07/24 05:23 Labs: Abnormal Lab Results - Last 24 Hours (Table) 07/06/24 07/06/24 07/06/24 Range/Units 12:11 17:43 20:30 WBC (3.8-10.6) k/uL RBC (3.80-5.40) m/uL Neutrophils # (1.3-7.7) k/uL Lymphocytes # (1.0-4.8) k/uL Sodium (137-145) mmol/L Chloride (98-107) mmol/L Carbon Dioxide (22-30) mmol/L BUN (7-17) mg/dL Creatinine (0.52-1.04) mg/dL Glucose (74-99) mg/dL POC Glucose (mg/dL) 134 H 166 H 221 H (70-110) mg/dL Calcium (8.4-10.2) mg/dL 07/07/24 07/07/24 07/07/24 Range/Units 05:23 05:23 06:16 WBC 15.8 H (3.8-10.6) k/uL RBC 3.68 L (3.80-5.40) m/uL Neutrophils # 15.1 H (1.3-7.7) k/uL Lymphocytes # 0.3 L (1.0-4.8) k/uL Sodium 129 L (137-145) mmol/L Chloride 90 L (98-107) mmol/L Carbon Dioxide 39 H (22-30) mmol/L BUN 34 H (7-17) mg/dL Creatinine 1.37 H (0.52-1.04) mg/dL Glucose 147 H (74-99) mg/dL POC Glucose (mg/dL) 158 H (70-110) mg/dL Calcium 10.3 H (8.4-10.2) mg/dL Microbiology - Last 24 Hours (Table) 07/01/24 14:32 Blood Culture - Final Blood Assessment and Plan Assessment: Acute on chronic hypoxemic and hypercapnic respiratory failure, secondary to acute COPD exacerbation and extensive of right sided healthcare associated pneumonia. Today's chest x-ray continues to show improvement Acute hypercapnic encephalopathy Severe chronic obstructive pulmonary disease Chronic hypoxemic respiratory failure, secondary to above, normally on 1.5 L/min nasal cannula while at home Obstructive sleep apnea, reportedly noncompliant with home CPAP machine History of heart failure, with borderline mildly impaired left ventricular ejection fraction of 45 to 50% Pulmonary hypertension Chronic atrial fibrillation, anticoagulated with Eliquis Hyperlipidemia Hypertension Plan: The patient was seen and evaluated Chest x-ray, labs and medications reviewed Currently on BiPAP 22/04 with FiO2 35% nightly. Nasal canulla if tolerated Zosyn restarted for suspicion of pneumonia, will order procalcitonin to determine further treatment course Continue D5W at 40 mL/h Patient cleared to downgrade from ICU Time with Patient: Greater than 30
[2024-07-07 11:40] LABS: Glucose,Whole Blood 180 mg/dL (70-110)
--- NOTE | 2024-07-07 11:51 | P.PN ---
Subjective Patient is seen for follow-up for acute kidney injury. Maintained on D5W for hypernatremia. No significant complaints today. Sodium is 129 today. Tolerating oral intake. Objective - Vital Signs Vital signs: Vital Signs Temp 97.5 F L 07/07/24 08:00 Pulse 96 07/07/24 11:32 Resp 23 07/07/24 11:00 BP 145/64 07/07/24 09:00 Pulse Ox 93 L 07/07/24 11:00 FiO2 35 07/07/24 04:00 Intake & Output 07/06/24 07/07/24 07/07/24 18:59 06:59 18:59 Intake Total 1380 580 90 Output Total 740 510 150 Balance 640 70 -60 Weight 100 kg Intake: IV 480 480 90 0.9 @ KVO 10 Dextrose 5% in Water 1, 480 480 80 000 ml @ 40 mls/hr IV . Q24H [facility] Rx#:[id number] Intake, IV Titration 900 100 Amount Potassium Chloride 10 meq 900 100 In Water For Injection 1 100ml.bag @ 100 mls/hr IVPB Q1HR [facility] Rx#: [id number] Output: Urine 740 510 150 Other: Voiding Method Indwelling Catheter Indwelling Catheter Indwelling Catheter - Exam Patient is awake, comfortable, no acute distress. Examination of the heart S1 and S2 Examination of the lungs decreased breath sounds at the bases Abdomen is soft nontender Examination of lower extremities shows no significant edema. - Labs CBC & Chem 7: 07/07/24 05:23 07/07/24 05:23 Labs: Abnormal Lab Results - Last 24 Hours (Table) 07/06/24 07/06/24 07/06/24 Range/Units 12:11 17:43 20:30 WBC (3.8-10.6) k/uL RBC (3.80-5.40) m/uL Neutrophils # (1.3-7.7) k/uL Lymphocytes # (1.0-4.8) k/uL Sodium (137-145) mmol/L Chloride (98-107) mmol/L Carbon Dioxide (22-30) mmol/L BUN (7-17) mg/dL Creatinine (0.52-1.04) mg/dL Glucose (74-99) mg/dL POC Glucose (mg/dL) 134 H 166 H 221 H (70-110) mg/dL Calcium (8.4-10.2) mg/dL 07/07/24 07/07/24 07/07/24 Range/Units 05:23 05:23 06:16 WBC 15.8 H (3.8-10.6) k/uL RBC 3.68 L (3.80-5.40) m/uL Neutrophils # 15.1 H (1.3-7.7) k/uL Lymphocytes # 0.3 L (1.0-4.8) k/uL Sodium 129 L (137-145) mmol/L Chloride 90 L (98-107) mmol/L Carbon Dioxide 39 H (22-30) mmol/L BUN 34 H (7-17) mg/dL Creatinine 1.37 H (0.52-1.04) mg/dL Glucose 147 H (74-99) mg/dL POC Glucose (mg/dL) 158 H (70-110) mg/dL Calcium 10.3 H (8.4-10.2) mg/dL Microbiology - Last 24 Hours (Table) 07/01/24 14:32 Blood Culture - Final Blood Assessment and Plan Assessment: . Acute kidney injury secondary to hemodynamic ATN. Baseline creatinine 0.8 from April 2024 and peaked at 2.05 this admission -1. 37 today. Nonoliguric. No hydronephrosis noted on kidney ultrasound. Left kidney atrophic. 2. Hyperkalemia secondary to acute kidney injury, losartan and potassium supplementation. Resolved. 3. Acute on chronic hypoxic and hypercapnic respiratory failure. Improved. Now on nasal cannula. 4. Pneumonia s/p antibiotics. 5. History of right upper lobe lobectomy. 6. Chronic diastolic CHF with moderate tricuspid regurgitation and severe pulmonary hypertension. 7. Hypernatremia from lack of oral water intake. Improved with D5W. 8. Hypercalcemia. Calcium level 10.3 today. Not on any calcium or vitamin D supplementation. Possibly volume contraction. PTH elevated at 130 concerning for primary hyperparathyroidism. Vitamin D 8.5. PJ level 17. 1,25 OH level 34. [place] lambda light chain ratio not elevated. Started on Sensipar. 9. Metabolic alkalosis secondary to volume contraction and partially compensatory for underlying respiratory acidosis. Maintained on Diamox. Plan: DC D5W Continue with Diamox Continue Sensipar Replace vitamin D once calcium is slightly lower. Repeat labs in a.m.
[2024-07-07] MEDS: acetaZOLAMIDE 250 MG TAB PO SCH (15:53)
[2024-07-07 16:44] LABS: Glucose,Whole Blood 199 mg/dL (70-110)
--- NOTE | 2024-07-07 17:45 | P.PN ---
Subjective Progress Note Date: 07/07/24 Interval History: his is a pleasant 78 years old female with past medical history of multiple medical problems as below. Patient presents because of altered mental status. Patient cannot provide information it was obtained from the family at bedside and records. As per and family patient was not using her BiPAP and she was sleeping most of the time yesterday around 22 hours, family got concerned and brought her to the hospital today. Patient is completely confused and cannot provide information and she has evidence of acute COPD exacerbations and she was admitted to the intensive care unit for this reason. No other information is available at now. Patient was mildly hypothermic 97.2, she is breathing fast at 30, tachycardic but blood pressure stable at 136/69. Labs reviewed showing WBC 21,000, rest of CBC is unremarkable Sodium 139, potassium 5.4. Creatinine is 1.1 pH is low 7.1, pCO2 is elevated at 98 and low pO2 at 80. Liver enzymes unremarkable Chest x-ray showing right lower lobe infiltrate. Patient is DNR and DNI and this confirmed with the family. Patient is going to be admitted to the ICU ct of brain: no acute process. Moderate to severe chronic small vessel ischemic disease. ct of chest: extensive consolidation and collapse pf the right mid and lower lung and fluid collection in RUL 07/02. Patient seen and examined. Currently on BiPAP. States she feels slight ly better. Gets short of breath on minimal exertion. Labs done this morning showed WBC 13.3, hemoglobin 13, platelet count 296 sodium 143, potassium 6.1, BUN 50, creatinine 1.72 07/03. Patient seen and examined. Patient currently on BiPAP, states she is doing slightly better. Currently alert and oriented to self and place. 2D echo done showed LVEF of 65 to 70%, mild to moderate increased left ventricular wall thickness, severe right ventricle dilatation with mild right ventricular hypokinesis, RVSP of 68, moderate tricuspid regurg 07/04. Patient seen and examined. Currently on BiPAP. Continues to be lethargic. 07/05. Patient seen and examined. Patient is lethargic but arousable, answering questions. Continues to be on BiPAP.Blood work done this morning showed WBC 8.5, hemoglobin 10.4 sodium 141, potassium 4.1, BUN 40, creatinine 1.18 07/06. Patient seen and examined.. Continues to be on BiPAP. Blood work done this morning showed WC 6.8, hemoglobin 10.7, sodium 140, potassium 3.5, CO2 41, BUN 44, creatinine 1.09. Continues to be lethargic. 07/07--patient was seen and examined today. Was on liter oxygen in the morning, required BiPAP overnight. WBCs 15.8, hemoglobin 11.4, platelets 236. Sodium is low 129, potassium 4.1, CO2 39, creatinine 1.37. Currently on Zosyn per pulmonary. Nephrology following. Assessment and plan: Acute COPD exacerbation Acute hypoxic hypercapnic respiratory failure Acute respiratory acidosis Hyperkalemia Hypercalcemia Acute kidney injury Hypertension Pulmonary hypertension Chronic hypoxic respiratory failure Chronic atrial fibrillation Hyperlipidemia History of obstructive sleep apnea History of coronary artery disease s/p cardiac cath Monitor vital signs Monitor CBC Monitor CMP Continue telemetry monitoring Continue bronchopulmonary hygiene Continues with BiPAP as needed Hyperkalemia protocol initiated Strict I's and O's, daily weights 2D echo done showed LVEF of 65 to 70%, mild to moderate increased left ventricular wall thickness, severe right ventricle dilatation with mild right ventricular hypokinesis, RVSP of 68, moderate tricuspid regurg Continue D5W, Added 250 mg twice daily,Sensipar 30 mg once daily. Continue IV Zosyn Nephrology following Pulmonology following ID following Labs and medication were reviewed.. Continue same treatment. Continue with symptomatic treatment. Resume home medication. Monitor labs and vitals. DVT and GI prophylaxis. Further recommendations as per clinical course of the patient DVT prophylaxis: Subcutaneous Lovenox PHYSICAL EXAMINATION: GENERAL: The patient is A&O x3, NAD HEENT: EOMI, Sclerae anicteric, Moist Mucous membranes Neck: Supple, Non tender, No JVD PULMONARY: Equal breath souds B/L, No wheezing, No crackles. CARDIOVASCULAR: S1, S2 present. No murmurs, rubs, or gallops. ABDOMEN: Soft, nontender, nondistended, normoactive bowel sounds. No guarding or rebound tenderness. MUSCULOSKELETAL: No edema, No cyanosis. No clubbing. Normal ROM. Intact peripheral pulses. EXTREMITIES: No cyanosis, clubbing, or pedal edema. NEUROLOGICAL: CN 2-12 grossly intact. No FND Skin: No Rash REVIEW OF SYSTEMS: CONSTITUTIONAL: No fever or chills. CARDIOVASCULAR: No chest pain, palpitations or syncope. PULMONARY: No shortness of breath, no cough, sore throat. GASTROINTESTINAL: No nausea, vomiting, diarrhea, abdominal pain. : No Dysuria, urgency, frequency. Extremities: No edema. NEUROLOGICAL: No headaches, no weakness, or numbness Dictation was produced using [employer] dictation software. please excuse any grammatical, word or spelling errors. Objective - Vital Signs Vital signs: Vital Signs Temp 97.6 F 07/07/24 12:17 Pulse 92 07/07/24 16:13 Resp 23 07/07/24 15:46 BP 134/80 07/07/24 15:46 Pulse Ox 95 07/07/24 15:46 FiO2 35 07/07/24 16:09 Intake & Output 07/06/24 07/07/24 07/07/24 18:59 06:59 18:59 Intake Total 1380 580 208 Output Total 740 510 300 Balance 640 70 -92 Weight 100 kg Intake: IV 480 480 90 0.9 @ KVO 10 Dextrose 5% in Water 1, 480 480 80 000 ml @ 40 mls/hr IV . Q24H [facility] Rx#:[id number] Intake, IV Titration 900 100 Amount Potassium Chloride 10 meq 900 100 In Water For Injection 1 100ml.bag @ 100 mls/hr IVPB Q1HR [facility] Rx#: [id number] Oral 118 Output: Urine 740 510 300 Other: Voiding Method Indwelling Catheter Indwelling Catheter Indwelling Catheter - Labs CBC & Chem 7: 07/07/24 05:23 07/07/24 05:23 Labs: Abnormal Lab Results - Last 24 Hours (Table) 07/06/24 07/06/24 07/07/24 Range/Units 17:43 20:30 05:23 WBC 15.8 H (3.8-10.6) k/uL RBC 3.68 L (3.80-5.40) m/uL Neutrophils # 15.1 H (1.3-7.7) k/uL Lymphocytes # 0.3 L (1.0-4.8) k/uL Sodium (137-145) mmol/L Chloride (98-107) mmol/L Carbon Dioxide (22-30) mmol/L BUN (7-17) mg/dL Creatinine (0.52-1.04) mg/dL Glucose (74-99) mg/dL POC Glucose (mg/dL) 166 H 221 H (70-110) mg/dL Calcium (8.4-10.2) mg/dL 07/07/24 07/07/24 07/07/24 Range/Units 05:23 06:16 11:38 WBC (3.8-10.6) k/uL RBC (3.80-5.40) m/uL Neutrophils # (1.3-7.7) k/uL Lymphocytes # (1.0-4.8) k/uL Sodium 129 L (137-145) mmol/L Chloride 90 L (98-107) mmol/L Carbon Dioxide 39 H (22-30) mmol/L BUN 34 H (7-17) mg/dL Creatinine 1.37 H (0.52-1.04) mg/dL Glucose 147 H (74-99) mg/dL POC Glucose (mg/dL) 158 H 180 H (70-110) mg/dL Calcium 10.3 H (8.4-10.2) mg/dL 07/07/24 Range/Units 16:38 WBC (3.8-10.6) k/uL RBC (3.80-5.40) m/uL Neutrophils # (1.3-7.7) k/uL Lymphocytes # (1.0-4.8) k/uL Sodium (137-145) mmol/L Chloride (98-107) mmol/L Carbon Dioxide (22-30) mmol/L BUN (7-17) mg/dL Creatinine (0.52-1.04) mg/dL Glucose (74-99) mg/dL POC Glucose (mg/dL) 199 H (70-110) mg/dL Calcium (8.4-10.2) mg/dL Microbiology - Last 24 Hours (Table) 07/01/24 14:32 Blood Culture - Final Blood
--- NOTE | 2024-07-07 19:06 | P.PN ---
Subjective Progress Note Date: 07/07/24 Principal diagnosis: Reason for follow-up is pneumonia Patient is a 78-year female with a past medical history significant for hypertension COPD atrial fibrillation, obstructive sleep apnea and recent admission to the hospital April 2024 for COPD exacerbation patient has been brought into the ER by EMS as the patient was noticed to be lethargic and sleepy at home patient was noted to be short of breath, patient did have a CT with evidence of extensive consolidation concerning for pneumonia. On today's evaluation that is 07/07/2024,the patient denies any fever or any chills, patient is breathing comfortably on nasal cannula oxygen, the patient denies chest pain shortness of breath and no worsening cough or sputum production, patient denies abdominal pain, no nausea vomiting or diarrhea. Patient white count is 15.8 creatinine is 4.37 blood culture negative sputum not collected Objective - Vital Signs Vital signs: Vital Signs Temp 98.1 F 07/07/24 04:00 Pulse 81 07/07/24 07:00 Resp 26 H 07/07/24 07:00 BP 147/85 07/07/24 07:00 Pulse Ox 92 L 07/07/24 07:00 FiO2 35 07/07/24 04:00 Intake & Output 07/06/24 07/07/24 07/07/24 18:59 06:59 18:59 Intake Total 1380 580 40 Output Total 740 510 15 Balance 640 70 25 Weight 100 kg Intake: IV 480 480 40 Dextrose 5% in Water 1, 480 480 40 000 ml @ 40 mls/hr IV . Q24H [facility] Rx#:[id number] Intake, IV Titration 900 100 Amount Potassium Chloride 10 meq 900 100 In Water For Injection 1 100ml.bag @ 100 mls/hr IVPB Q1HR [facility] Rx#: [id number] Output: Urine 740 510 15 Other: Voiding Method Indwelling Catheter Indwelling Catheter - Exam GENERAL DESCRIPTION: An elderly female lying in bed in no distress RESPIRATORY SYSTEM: Unlabored breathing , decreased breath sounds at bases HEART: S1 S2 regular rate and rhythm , ABDOMEN: Soft , no tenderness EXTREMITIES: No edema feet - Labs CBC & Chem 7: 07/07/24 05:23 07/07/24 05:23 Labs: Abnormal Lab Results - Last 24 Hours (Table) 07/06/24 07/06/24 07/06/24 Range/Units 07:36 12:11 17:43 WBC (3.8-10.6) k/uL RBC (3.80-5.40) m/uL Neutrophils # (1.3-7.7) k/uL Lymphocytes # (1.0-4.8) k/uL ABG pCO2 66 H (35-45) mmHg ABG pO2 79 L (83-108) mmHg ABG HCO3 45 H* (21-25) mmol/L ABG Total CO2 47 H (19-24) mmol/L Sodium (137-145) mmol/L Chloride (98-107) mmol/L Carbon Dioxide (22-30) mmol/L BUN (7-17) mg/dL Creatinine (0.52-1.04) mg/dL Glucose (74-99) mg/dL POC Glucose (mg/dL) 134 H 166 H (70-110) mg/dL Calcium (8.4-10.2) mg/dL 07/06/24 07/07/24 07/07/24 Range/Units 20:30 05:23 05:23 WBC 15.8 H (3.8-10.6) k/uL RBC 3.68 L (3.80-5.40) m/uL Neutrophils # 15.1 H (1.3-7.7) k/uL Lymphocytes # 0.3 L (1.0-4.8) k/uL ABG pCO2 (35-45) mmHg ABG pO2 (83-108) mmHg ABG HCO3 (21-25) mmol/L ABG Total CO2 (19-24) mmol/L Sodium 129 L (137-145) mmol/L Chloride 90 L (98-107) mmol/L Carbon Dioxide 39 H (22-30) mmol/L BUN 34 H (7-17) mg/dL Creatinine 1.37 H (0.52-1.04) mg/dL Glucose 147 H (74-99) mg/dL POC Glucose (mg/dL) 221 H (70-110) mg/dL Calcium 10.3 H (8.4-10.2) mg/dL 07/07/24 Range/Units 06:16 WBC (3.8-10.6) k/uL RBC (3.80-5.40) m/uL Neutrophils # (1.3-7.7) k/uL Lymphocytes # (1.0-4.8) k/uL ABG pCO2 (35-45) mmHg ABG pO2 (83-108) mmHg ABG HCO3 (21-25) mmol/L ABG Total CO2 (19-24) mmol/L Sodium (137-145) mmol/L Chloride (98-107) mmol/L Carbon Dioxide (22-30) mmol/L BUN (7-17) mg/dL Creatinine (0.52-1.04) mg/dL Glucose (74-99) mg/dL POC Glucose (mg/dL) 158 H (70-110) mg/dL Calcium (8.4-10.2) mg/dL Microbiology - Last 24 Hours (Table) 07/01/24 14:32 Blood Culture - Final Blood Assessment and Plan (1) Pneumonia Current Visit: Yes Status: Acute Code(s): J18.9 - PNEUMONIA, UNSPECIFIED ORG ANISM SNOMED Code(s): 862740747 (2) Sepsis Current Visit: Yes Status: Acute Code(s): A41.9 - SEPSIS, UNSPECIFIED ORGANISM SNOMED Code(s): 59970695 (3) Leukocytosis Current Visit: No Status: Acute Code(s): D72.829 - ELEVATED WHITE BLOOD CELL COUNT, UNSPECIFIED SNOMED Code(s): 022138664 Plan: 1patient presented to hospital with sepsis in this patient who did have elevated white count tachycardia source is likely pneumonia with evidence of right-sided consolidation question of aspiration/gram-negative as the patient has been in and out of the hospital, gram-positive infection not entirely e xcluded 2-patient blood cultures has been negative, sputum has not been collected did have elevated procalcitonin 3patient is afebrile the patient white count is slightly up today need to monitor closely continue Zosyn repeat CBC with a.m. lab try to obtain a sputum Dictation was produced using [employer] dictation software. please excuse any grammatical, word or spelling errors. Time with Patient: Less than 30
[2024-07-07 20:12] LABS: Glucose,Whole Blood 128 mg/dL (70-110)
[2024-07-08 06:33] LABS: Glucose,Whole Blood 142 mg/dL (70-110)
[2024-07-08 09:01] LABS: Basophils # (A) 0.1 k/uL (0-0.2); Basophils % (A) 0 %; Eosinophils # (A) 0.1 k/uL (0-0.7); Eosinophils % (A) 0 %; HCT 37.8 % (34.0-46.0); HGB 11.5 gm/dL (11.4-16.0); Hypochromasia Marked; Lymphocytes # (A) 0.2 k/uL (1.0-4.8); Lymphocytes % (A) 1 %; MCH 30.8 pg (25.0-35.0); MCHC 30.5 g/dL (31.0-37.0); MCV 101.1 fL (80.0-100.0); Macrocytosis Slight; Mean Platelet Volume 7.9; Monocytes # (A) 0.3 k/uL (0-1.0); Monocytes % (A) 2 %; Neutrophils # (A) 18.7 k/uL (1.3-7.7); Neutrophils % (A) 97 %; Platelet Count 208 k/uL (150-450); RBC 3.73 m/uL (3.80-5.40); RDW 13.7 % (11.5-15.5); WBC 19.3 k/uL (3.8-10.6)
[2024-07-08 09:28] LABS: African American GFR (CKD) 43 (>60 ml/min/1.73 sqM); Anion Gap 1 mmol/L; Blood Urea Nitrogen 32 mg/dL (7-17); Calcium 9.7 mg/dL (8.4-10.2); Carbon Dioxide 39 mmol/L (22-30); Chloride 98 mmol/L (98-107); Glucose 123 mg/dL (74-99); Non-African American GFR(CKD) 37 (>60 ml/min/1.73 sqM); Potassium 4.2 mmol/L (3.5-5.1); Sodium 138 mmol/L (137-145)
--- NOTE | 2024-07-08 10:03 | P.PN ---
Subjective Progress Note Date: 07/08/24 Principal diagnosis: COPD, pneumonia COPD, pneumonia This is a 78-year-old female with a history of severe COPD, chronic hypoxemic and hypercapnic respiratory failure, and obstructive sleep apnea syndrome. Patient is a DO NOT RESUSCITATE/DO NOT INTUBATE. The patient was on BiPAP overnight, 16/6, FiO2 35%, and transitioned to NC on 3L O2 this morning. Her chest x-ray is showing significant improvement in the right upper and mid lung. Continued improvement of opacification in the right perihilar and right lower lung. Labs, are reviewed, and show WBC 15.8, Hgb 11.4, platelets 236, and sodium 129, potassium 4.1, chloride 90, bicarbonate 39, BUN 39, creatinine 1.37. Medications, x-rays, and all labs are reviewed. Progress note dated July 08, 2024. The patient was transferred out of the intensive care unit yesterday. She is seen today in room 364. She is currently on BiPAP, settings of 16/6, and 35%. The patient is not receiving any IV fluids. We will discontinue her Zosyn. She is on Solu-Medrol, and it will be reduced down to 40 mg every 8, from 60 mg every 6. Her procalcitonin level was 0.09. Current labs include a white count 19.3, hemoglobin 9.5, hematocrit 37.8, platelet count 208,000. Sodium 138, potassium 4.2, chloride 98, CO2 39, BUN 32, creatinine 1.36. Glucose 123. Calcium 9.7. Blood cultures, and all the cultures are negative. Yesterday's chest x-ray has been reviewed. Objective - Vital Signs Vital signs: Vital Signs Temp 97.9 F 07/08/24 09:35 Pulse 94 07/08/24 09:35 Resp 19 07/08/24 09:35 BP 135/67 07/08/24 09:35 Pulse Ox 97 07/08/24 09:35 FiO2 35 07/08/24 08:49 Intake & Output 07/07/24 07/08/24 07/08/24 18:59 06:59 18:59 Intake Total 208 10 Output Total 300 Balance -92 10 Weight 97 kg Intake: IV 90 10 0.9 @ KVO 10 Dextrose 5% in Water 1, 80 000 ml @ 40 mls/hr IV . Q24H [facility] Rx#:[id number] Invasive Line 6 10 Oral 118 Output: Urine 300 Other: Voiding Method Indwelling Catheter External Catheter # Voids 1 # Bowel Movements 1 - Exam No acute distress, currently on BiPAP. No audible wheezing. HEENT examination is grossly unremarkable. Neck supple. Full range of motion. No adenopathy thyromegaly or neck vein distention. Cardiovascular examination reveals regular rhythm rate. S1-S2 normal. No S3 or S4. No discernible murmur noted. Heart sounds are distant. Lungs reveal scattered rhonchi. Mild expiratory wheezes. No crackles. Breath sounds equal. Abdomen soft bowel sounds. No masses or tenderness. Extremities are intact. No cyanosis or clubbing. Trace edema present. Skin is without rash or lesion. Neurologic examination is brief but nonfocal. - Labs CBC & Chem 7: 07/08/24 08:09 07/08/24 08:09 Labs: Abnormal Lab Results - Last 24 Hours (Table) 07/07/24 07/07/24 07/07/24 Range/Units 11:38 16:38 20:10 WBC (3.8-10.6) k/uL RBC (3.80-5.40) m/uL MCV (80.0-100.0) fL MCHC (31.0-37.0) g/dL Neutrophils # (1.3-7.7) k/uL Lymphocytes # (1.0-4.8) k/uL Carbon Dioxide (22-30) mmol/L BUN (7-17) mg/dL Creatinine (0.52-1.04) mg/dL Glucose (74-99) mg/dL POC Glucose (mg/dL) 180 H 199 H 128 H (70-110) mg/dL 07/08/24 07/08/24 07/08/24 Range/Units 06:31 08:09 08:09 WBC 19.3 H (3.8-10.6) k/uL RBC 3.73 L (3.80-5.40) m/uL MCV 101.1 H (80.0-100.0) fL MCHC 30.5 L (31.0-37.0) g/dL Neutrophils # 18.7 H (1.3-7.7) k/uL Lymphocytes # 0.2 L (1.0-4.8) k/uL Carbon Dioxide 39 H (22-30) mmol/L BUN 32 H (7-17) mg/dL Creatinine 1.36 H (0.52-1.04) mg/dL Glucose 123 H (74-99) mg/dL POC Glucose (mg/dL) 142 H (70-110) mg/dL Assessment and Plan Assessment: Acute on chronic hypoxemic and hypercapnic respiratory failure, secondary to acute COPD exacerbation and extensive of right sided healthcare associated pneumonia. Acute hypercapnic encephalopathy. Severe chronic obstructive pulmonary disease. Chronic hypoxemic respiratory failure, secondary to above, normally on 1.5 L/min nasal cannula. Obstructive sleep apnea, reportedly noncompliant with home CPAP machine. History of heart failure, with borderline mildly impaired left ventricular ejection fraction of 45 to 50%. Pulmonary hypertension. Chronic atrial fibrillation. Hyperlipidemia. Hypertension. Plan: Plan dated July 08, 2024. The patient is seen today in room 364. The patient is on BiPAP, with settings of 16/6, and 35%. The patient is not receiving any IV fluids. The patient's procalcitonin level was 0.09. Culture data is negative. Solu-Medrol was changed from 60 mg every 6 hours to 40 mg every 8 hours. Zosyn is discontinued. We will continue to follow the patient. Prognosis is guarded. She is a no code/DNR patient. Time with Patient: Less than 30
--- NOTE | 2024-07-08 11:24 | P.PN ---
Subjective Patient is seen for follow-up for acute kidney injury. Transferred out of the ICU. No significant complaints today. Trying to increase oral intake. Objective - Vital Signs Vital signs: Vital Signs Temp 97.9 F 07/08/24 09:35 Pulse 94 07/08/24 09:35 Resp 19 07/08/24 09:35 BP 135/67 07/08/24 09:35 Pulse Ox 97 07/08/24 09:35 FiO2 35 07/08/24 08:49 Intake & Output 07/07/24 07/08/24 07/08/24 18:59 06:59 18:59 Intake Total 208 10 Output Total 300 Balance -92 10 Weight 97 kg Intake: IV 90 10 0.9 @ KVO 10 Dextrose 5% in Water 1, 80 000 ml @ 40 mls/hr IV . Q24H [facility] Rx#:[id number] Invasive Line 6 10 Oral 118 Output: Urine 300 Other: Voiding Method Indwelling Catheter External Catheter External Catheter # Voids 1 1 # Bowel Movements 1 - Exam Patient is awake, comfortable, no acute distress. Examination of the heart S1 and S2 Examination of the lungs decreased breath sounds at the bases Abdomen is soft nontender Examination of lower extremities shows no significant edema. - Labs CBC & Chem 7: 07/08/24 08:09 07/08/24 08:09 Labs: Abnormal Lab Results - Last 24 Hours (Table) 07/07/24 07/07/24 07/07/24 Range/Units 11:38 16:38 20:10 WBC (3.8-10.6) k/uL RBC (3.80-5.40) m/uL MCV (80.0-100.0) fL MCHC (31.0-37.0) g/dL Neutrophils # (1.3-7.7) k/uL Lymphocytes # (1.0-4.8) k/uL Carbon Dioxide (22-30) mmol/L BUN (7-17) mg/dL Creatinine (0.52-1.04) mg/dL Glucose (74-99) mg/dL POC Glucose (mg/dL) 180 H 199 H 128 H (70-110) mg/dL 07/08/24 07/08/24 07/08/24 Range/Units 06:31 08:09 08:09 WBC 19.3 H (3.8-10.6) k/uL RBC 3.73 L (3.80-5.40) m/uL MCV 101.1 H (80.0-100.0) fL MCHC 30.5 L (31.0-37.0) g/dL Neutrophils # 18.7 H (1.3-7.7) k/uL Lymphocytes # 0.2 L (1.0-4.8) k/uL Carbon Dioxide 39 H (22-30) mmol/L BUN 32 H (7-17) mg/dL Creatinine 1.36 H (0.52-1.04) mg/dL Glucose 123 H (74-99) mg/dL POC Glucose (mg/dL) 142 H (70-110) mg/dL Assessment and Plan Assessment: . Acute kidney injury secondary to hemodynamic ATN. Baseline creatinine 0.8 from April 2024 and peaked at 2.05 this admission -1.3 today. Nonoliguric. No hydronephrosis noted on kidney ultrasound. Left kidney atrophic. 2. Hyperkalemia secondary to acute kidney injury, losartan and potassium supplementation. Resolved. 3. Acute on chronic hypoxic and hypercapnic respiratory failure. Improved. Now on nasal cannula. 4. Pneumonia s/p antibiotics. 5. History of right upper lobe lobectomy. 6. Chronic diastolic CHF with moderate tricuspid regurgitation and severe pulmonary hypertension. 7. Hypernatremia from lack of oral water intake. Improved with D5W. 8. Hypercalcemia. Calcium level 9.7 today. Not on any calcium or vitamin D supplementation. Possibly volume contraction. PTH elevated at 130 concerning for primary hyperparathyroidism. Vitamin D 8.5. PJ level 17. 1,25 OH level 34. [place] lambda light chain ratio not elevated. Started on Sensipar. 9. Metabolic alkalosis secondary to volume contraction and partially compensatory for underlying respiratory acidosis. Maintained on Diamox. Plan: add Lasix Continue with Diamox Continue Sensipar, decrease dose Replace vitamin D now that calcium has improved. Repeat labs in a.m.
[2024-07-08 11:25] LABS: Glucose,Whole Blood 137 mg/dL (70-110)
[2024-07-08] MEDS: FUROSEMIDE 10 MG/ML 4 ML VIAL IV SCH (11:56)
[2024-07-08] MEDS: ERGOCALCIFEROL 1,250 MCG (50,000 IU) CAPSULE PO SCH (13:13)
[2024-07-08 16:24] LABS: Glucose,Whole Blood 150 mg/dL (70-110)
[2024-07-08] MEDS: methylPREDNISolone SOD SUCCI 40 MG/ML 1 ML VIAL IV SCH (16:56)
--- NOTE | 2024-07-08 17:16 | P.PN ---
Subjective Progress Note Date: 07/08/24 Interval History: his is a pleasant 78 years old female with past medical history of multiple medical problems as below. Patient presents because of altered mental status. Patient cannot provide information it was obtained from the family at bedside and records. As per and family patient was not using her BiPAP and she was sleeping most of the time yesterday around 22 hours, family got concerned and brought her to the hospital today. Patient is completely confused and cannot provide information and she has evidence of acute COPD exacerbations and she was admitted to the intensive care unit for this reason. No other information is available at now. Patient was mildly hypothermic 97.2, she is breathing fast at 30, tachycardic but blood pressure stable at 136/69. Labs reviewed showing WBC 21,000, rest of CBC is unremarkable Sodium 139, potassium 5.4. Creatinine is 1.1 pH is low 7.1, pCO2 is elevated at 98 and low pO2 at 80. Liver enzymes unremarkable Chest x-ray showing right lower lobe infiltrate. Patient is DNR and DNI and this confirmed with the family. Patient is going to be admitted to the ICU ct of brain: no acute process. Moderate to severe chronic small vessel ischemic disease. ct of chest: extensive consolidation and collapse pf the right mid and lower lung and fluid collection in RUL 07/02. Patient seen and examined. Currently on BiPAP. States she feels slight ly better. Gets short of breath on minimal exertion. Labs done this morning showed WBC 13.3, hemoglobin 13, platelet count 296 sodium 143, potassium 6.1, BUN 50, creatinine 1.72 07/03. Patient seen and examined. Patient currently on BiPAP, states she is doing slightly better. Currently alert and oriented to self and place. 2D echo done showed LVEF of 65 to 70%, mild to moderate increased left ventricular wall thickness, severe right ventricle dilatation with mild right ventricular hypokinesis, RVSP of 68, moderate tricuspid regurg 07/04. Patient seen and examined. Currently on BiPAP. Continues to be lethargic. 07/05. Patient seen and examined. Patient is lethargic but arousable, answering questions. Continues to be on BiPAP.Blood work done this morning showed WBC 8.5, hemoglobin 10.4 sodium 141, potassium 4.1, BUN 40, creatinine 1.18 07/06. Patient seen and examined.. Continues to be on BiPAP. Blood work done this morning showed WC 6.8, hemoglobin 10.7, sodium 140, potassium 3.5, CO2 41, BUN 44, creatinine 1.09. Continues to be lethargic. 07/07--patient was seen and examined today. Was on liter oxygen in the morning, required BiPAP overnight. WBCs 15.8, hemoglobin 11.4, platelets 236. Sodium is low 129, potassium 4.1, CO2 39, creatinine 1.37. Currently on Zosyn per pulmonary. Nephrology following. 07/08--- patient was seen and examined today. Patient was transferred out of ICU yesterday. Currently on BiPAP, FiO2 to 35%. Zosyn discontinued per infectious disease. On Solu-Medrol, decreased dose. Procalcitonin 0.09. WBCs 9.3 likely secondary to steroids, hemoglobin 9.5, platelet 208. CO2 39, creatinine 1.36. Blood cultures negative so far. Assessment and plan: Acute COPD exacerbation Acute hypoxic hypercapnic respiratory failure Acute respiratory acidosis Hyperkalemia Hypercalcemia Acute kidney injury Hypertension Pulmonary hypertension Chronic hypoxic respiratory failure Chronic atrial fibrillation Hyperlipidemia History of obstructive sleep apnea History of coronary artery disease s/p cardiac cath Monitor vital signs Monitor CBC Monitor CMP Continue telemetry monitoring Continue bronchopulmonary hygiene Continues with BiPAP as needed Hyperkalemia protocol initiated Strict I's and O's, daily weights 2D echo done showed LVEF of 65 to 70%, mild to moderate increased left ventricular wall thickness, severe right ventricle dilatation with mild right ventricular hypokinesis, RVSP of 68, moderate tricuspid regurg Continue D5W, Added 250 mg twice daily,Sensipar 30 mg once daily. Was on Zosyn, now discontinued 07/08. Nephrology following Pulmonology following ID following Labs and medication were reviewed.. Continue same treatment. Continue with symptomatic treatment. Resume home medication. Monitor labs and vitals. DVT and GI prophylaxis. Further recommendations as per clinical course of the patie nt DVT prophylaxis: Subcutaneous Lovenox PHYSICAL EXAMINATION: GENERAL: The patient is A&O x3, NAD HEENT: EOMI, Sclerae anicteric, Moist Mucous membranes Neck: Supple, Non tender, No JVD PULMONARY: Equal breath souds B/L, No wheezing, No crackles. CARDIOVASCULAR: S1, S2 present. No murmurs, rubs, or gallops. ABDOMEN: Soft, nontender, nondistended, normoactive bowel sounds. No guarding or rebound tenderness. MUSCULOSKELETAL: No edema, No cyanosis. No clubbing. Normal ROM. Intact peripheral pulses. EXTREMITIES: No cyanosis, clubbing, or pedal edema. NEUROLOGICAL: CN 2-12 grossly intact. No FND Skin: No Rash REVIEW OF SYSTEMS: CONSTITUTIONAL: No fever or chills. CARDIOVASCULAR: No chest pain, palpitations or syncope. PULMONARY: No shortness of breath, no cough, sore throat. GASTROINTESTINAL: No nausea, vomiting, diarrhea, abdominal pain. : No Dysuria, urgency, frequency. Extremities: No edema. NEUROLOGICAL: No headaches, no weakness, or numbness Dictation was produced using [employer] dictation software. please excuse any grammatical, word or spelling errors. Objective - Vital Signs Vital signs: Vital Signs Temp 97.9 F 07/08/24 09:35 Pulse 84 07/08/24 16:58 Resp 18 07/08/24 16:58 BP 120/68 07/08/24 16:58 Pulse Ox 98 07/08/24 16:58 FiO2 35 07/08/24 15:55 Intake & Output 07/07/24 07/08/24 07/08/24 18:59 06:59 18:59 Intake Total 208 10 Output Total 300 2300 Balance -92 10 -2300 Weight 97 kg Intake: IV 90 10 0.9 @ KVO 10 Dextrose 5% in Water 1, 80 000 ml @ 40 mls/hr IV . Q24H [facility] Rx#:[id number] Invasive Line 6 10 Oral 118 Output: Urine 300 2300 Other: Voiding Method Indwelling Catheter External Catheter External Catheter # Voids 1 1 # Bowel Movements 1 1 - Labs CBC & Chem 7: 07/08/24 08:09 07/08/24 08:09 Labs: Abnormal Lab Results - Last 24 Hours (Table) 07/07/24 07/08/24 07/08/24 Range/Units 20:10 06:31 08:09 WBC 19.3 H (3.8-10.6) k/uL RBC 3.73 L (3.80-5.40) m/uL MCV 101.1 H (80.0-100.0) fL MCHC 30.5 L (31.0-37.0) g/dL Neutrophils # 18.7 H (1.3-7.7) k/uL Lymphocytes # 0.2 L (1.0-4.8) k/uL Carbon Dioxide (22-30) mmol/L BUN (7-17) mg/dL Creatinine (0.52-1.04) mg/dL Glucose (74-99) mg/dL POC Glucose (mg/dL) 128 H 142 H (70-110) mg/dL 07/08/24 07/08/24 07/08/24 Range/Units 08:09 11:24 16:22 WBC (3.8-10.6) k/uL RBC (3.80-5.40) m/uL MCV (80.0-100.0) fL MCHC (31.0-37.0) g/dL Neutrophils # (1.3-7.7) k/uL Lymphocytes # (1.0-4.8) k/uL Carbon Dioxide 39 H (22-30) mmol/L BUN 32 H (7-17) mg/dL Creatinine 1.36 H (0.52-1.04) mg/dL Glucose 123 H (74-99) mg/dL POC Glucose (mg/dL) 137 H 150 H (70-110) mg/dL
--- NOTE | 2024-07-08 18:07 | P.PN ---
Subjective Progress Note Date: 07/08/24 Principal diagnosis: Reason for follow-up is pneumonia Patient is a 78-year female with a past medical history significant for hypertension COPD atrial fibrillation, obstructive sleep apnea and recent admission to the hospital April 2024 for COPD exacerbation patient has been brought into the ER by EMS as the patient was noticed to be lethargic and sleepy at home patient was noted to be short of breath, patient did have a CT with evidence of extensive consolidation concerning for pneumonia. On today's evaluation that is 07/08/2024,the patient remains to be afebrile, patient is on 35% BiPAP supplemental oxygen and denies any shortness of breath no chest pain or any worsening cough.Patient denies having any nausea or vomiting, no abdominal pain and no diarrhea has been reported. Patient white count is 19.3, creatinine is 1.36 Objective - Vital Signs Vital signs: Vital Signs Temp 97.9 F 07/08/24 09:35 Pulse 84 07/08/24 16:58 Resp 18 07/08/24 16:58 BP 120/68 07/08/24 16:58 Pulse Ox 98 07/08/24 16:58 FiO2 35 07/08/24 15:55 Intake & Output 07/07/24 07/08/24 07/08/24 18:59 06:59 18:59 Intake Total 208 10 Output Total 300 2300 Balance -92 10 -2300 Weight 97 kg Intake: IV 90 10 0.9 @ KVO 10 Dextrose 5% in Water 1, 80 000 ml @ 40 mls/hr IV . Q24H [facility] Rx#:[id number] Invasive Line 6 10 Oral 118 Output: Urine 300 2300 Other: Voiding Method Indwelling Catheter External Catheter External Catheter # Voids 1 1 # Bowel Movements 1 1 - Exam GENERAL DESCRIPTION: An elderly female lying in bed in no distress RESPIRATORY SYSTEM: Unlabored breathing , decreased breath sounds at bases HEART: S1 S2 regular rate and rhythm , ABDOMEN: Soft , no tenderness EXTREMITIES: No edema feet - Labs CBC & Chem 7: 07/08/24 08:09 07/08/24 08:09 Labs: Abnormal Lab Results - Last 24 Hours (Table) 07/07/24 07/08/24 07/08/24 Range/Units 20:10 06:31 08:09 WBC 19.3 H (3.8-10.6) k/uL RBC 3.73 L (3.80-5.40) m/uL MCV 101.1 H (80.0-100.0) fL MCHC 30.5 L (31.0-37.0) g/dL Neutrophils # 18.7 H (1.3-7.7) k/uL Lymphocytes # 0.2 L (1.0-4.8) k/uL Carbon Dioxide (22-30) mmol/L BUN (7-17) mg/dL Creatinine (0.52-1.04) mg/dL Glucose (74-99) mg/dL POC Glucose (mg/dL) 128 H 142 H (70-110) mg/dL 07/08/24 07/08/24 07/08/24 Range/Units 08:09 11:24 16:22 WBC (3.8-10.6) k/uL RBC (3.80-5.40) m/uL MCV (80.0-100.0) fL MCHC (31.0-37.0) g/dL Neutrophils # (1.3-7.7) k/uL Lymphocytes # (1.0-4.8) k/uL Carbon Dioxide 39 H (22-30) mmol/L BUN 32 H (7-17) mg/dL Creatinine 1.36 H (0.52-1.04) mg/dL Glucose 123 H (74-99) mg/dL POC Glucose (mg/dL) 137 H 150 H (70-110) mg/dL Assessment and Plan (1) Pneumonia Current Visit: Yes Status: Acute Code(s): J18.9 - PNEUMONIA, UNSPECIFIED ORGANISM SNOMED Code(s): 921560311 (2) Sepsis Current Visit: Yes Status: Acute Code(s): A41.9 - SEPSIS, UNSPECIFIED ORGANISM SNOMED Code(s): 31248026 (3) Leukocytosis Current Visit: No Status: Acute Code(s): D72.829 - ELEVATED WHITE BLOOD CELL COUNT, UNSPECIFIED SNOMED Code(s): 176668239 Plan: 1patient presented to hospital with sepsis in this patient who did have elevated white count tachycardia source is likely pneumonia with evidence of right-sided consolidation question of aspiration/gram-negative as the patient has been in and out of the hospital, gram-positive infection not entirely excluded 2-patient blood cultures has been negative, sputum has not been collected did have elevated procalcitonin 3patient is afebrile, elevated white for more likely steroid related Zosyn has been discontinued pulmonary patient will monitor closely off antibiotics Dictation was produced using [employer] dictation software. please excuse any grammatical, word or spelling errors.
[2024-07-08 20:04] LABS: Glucose,Whole Blood 133 mg/dL (70-110)
[2024-07-09 05:43] LABS: Glucose,Whole Blood 128 mg/dL (70-110)
[2024-07-09 08:39] LABS: Basophils % (A) 0 %; Eosinophils % (A) 0 %; HCT 37.3 % (34.0-46.0); HGB 11.7 gm/dL (11.4-16.0); Hypochromasia Marked; Lymphocytes # (A) 0.4 k/uL (1.0-4.8); Lymphocytes % (A) 2 %; MCH 30.7 pg (25.0-35.0); MCHC 31.4 g/dL (31.0-37.0); Mean Platelet Volume 7.8; Monocytes # (A) 0.4 k/uL (0-1.0); Monocytes % (A) 2 %; Neutrophils # (A) 17.7 k/uL (1.3-7.7); Neutrophils % (A) 95 %; Platelet Count 182 k/uL (150-450); RDW 13.6 % (11.5-15.5); WBC 18.6 k/uL (3.8-10.6)
[2024-07-09 08:54] LABS: African American GFR (CKD) 46 (>60 ml/min/1.73 sqM); Blood Urea Nitrogen 33 mg/dL (7-17); Calcium 9.2 mg/dL (8.4-10.2); Chloride 97 mmol/L (98-107); Glucose 108 mg/dL (74-99); Non-African American GFR(CKD) 40 (>60 ml/min/1.73 sqM); Sodium 137 mmol/L (137-145)
[2024-07-09 09:01] LABS: Anion Gap 4 mmol/L
[2024-07-09 09:08] LABS: Carbon Dioxide 36 mmol/L (22-30); Potassium 4.1 mmol/L (3.5-5.1)
--- NOTE | 2024-07-09 09:41 | P.PN ---
Subjective Progress Note Date: 07/09/24 Principal diagnosis: COPD, pneumonia This is a 78-year-old female with a history of severe COPD, chronic hypoxemic and hypercapnic respiratory failure, and obstructive sleep apnea syndrome. Patient is a DO NOT RESUSCITATE/DO NOT INTUBATE. The patient was on BiPAP overn ight, 16/6, FiO2 35%, and transitioned to NC on 3L O2 this morning. Her chest x- ray is showing significant improvement in the right upper and mid lung. Continued improvement of opacification in the right perihilar and right lower lung. Labs, are reviewed, and show WBC 15.8, Hgb 11.4, platelets 236, and sodium 129, potassium 4.1, chloride 90, bicarbonate 39, BUN 39, creatinine 1.37. Medications, x-rays, and all labs are reviewed. Progress note dated July 08, 2024. The patient was transferred out of the intensive care unit yesterday. She is seen today in room 364. She is currently on BiPAP, settings of 16/6, and 35%. The patient is not receiving any IV fluids. We will discontinue her Zosyn. She is on Solu-Medrol, and it will be reduced down to 40 mg every 8, from 60 mg every 6. Her procalcitonin level was 0.09. Current labs include a white count 19.3, hemoglobin 9.5, hematocrit 37.8, platelet count 208,000. Sodium 138, potassium 4.2, chloride 98, CO2 39, BUN 32, creatinine 1.36. Glucose 123. Calcium 9.7. Blood cultures, and all the cultures are negative. Yesterday's chest x-ray has been reviewed. Progress note dated July 09, 2024. She is seen today in room 364. She is currently on BiPAP, settings of 16/6, and 35%. The patient is not receiving any IV fluids. She is on Solu-Medrol, and it will be reduced down to 40 mg every 8. Current labs include a white count 18.6, hemoglobin 11.7, hematocrit 37.3, platelet count 182. Sodium 137, potassium 4.1, chloride 97, CO2 36 9, BUN 33, creatinine 1. 29. Glucose 108. Calcium 9. 2. Blood cultures, and all the cultures are negative. Objective - Vital Signs Vital signs: Vital Signs Temp 97.4 F L 07/09/24 09:02 Pulse 79 07/09/24 09:02 Resp 28 H 07/09/24 09:02 BP 133/72 07/09/24 09:02 Pulse Ox 97 07/09/24 09:02 FiO2 95 07/09/24 09:02 Intake & Output 07/08/24 07/09/24 07/09/24 18:59 06:59 18:59 Intake Total 10 Output Total 2800 200 Balance -2800 -190 Weight 95 kg Intake: IV 10 Invasive Line 6 10 Output: Urine 2800 200 Other: Voiding Method External Catheter External Catheter # Voids 1 # Bowel Movements 1 - Exam GENERAL EXAM: Awake, alert, on bipap, nurse at the bedside. HEAD: Normocephalic and atraumatic EYES: Normal reaction of pupils, equal size. NOSE: Clear with pink turbinates. THROAT: No erythema or exudates. NECK: No masses, no JVD. CHEST: No chest wall deformity. LUNGS: Equal air entry with expiratory wheezes and rhonchi, diminished right basilar lung sounds. On bipap CVS: S1 and S2 normal with no audible murmur, regular rhythm. No extra heart sounds ABDOMEN: No hepatosplenomegaly, active bowel sounds, no guarding or rigidity. SPINE: No scoliosis or deformity SKIN: No rashes CENTRAL NERVOUS SYSTEM no focal deficits, tone is weak in all 4 extremities. EXTREMITIES: There is no peripheral edema, clubbing, or cyanosis. Peripheral pulses are intact. - Labs CBC & Chem 7: 07/09/24 07:37 07/09/24 07:37 Labs: Abnormal Lab Results - Last 24 Hours (Table) 07/08/24 07/08/24 07/08/24 Range/Units 08:09 11:24 16:22 WBC (3.8-10.6) k/uL Neutrophils # (1.3-7.7) k/uL Lymphocytes # (1.0-4.8) k/uL Chloride (98-107) mmol/L Carbon Dioxide 39 H (22-30) mmol/L BUN 32 H (7-17) mg/dL Creatinine 1.36 H (0.52-1.04) mg/dL Glucose 123 H (74-99) mg/dL POC Glucose (mg/dL) 137 H 150 H (70-110) mg/dL 07/08/24 07/09/24 07/09/24 Range/Units 20:02 05:42 07:37 WBC 18.6 H (3.8-10.6) k/uL Neutrophils # 17.7 H (1.3-7.7) k/uL Lymphocytes # 0.4 L (1.0-4.8) k/uL Chloride (98-107) mmol/L Carbon Dioxide (22-30) mmol/L BUN (7-17) mg/dL Creatinine (0.52-1.04) mg/dL Glucose (74-99) mg/dL POC Glucose (mg/dL) 133 H 128 H (70-110) mg/dL 07/09/24 Range/Units 07:37 WBC (3.8-10.6) k/uL Neutrophils # (1.3-7.7) k/uL Lymphocytes # (1.0-4.8) k/uL Chloride 97 L (98-107) mmol/L Carbon Dioxide 36 H (22-30) mmol/L BUN 33 H (7-17) mg/dL Creatinine 1.29 H (0.52-1.04) mg/dL Glucose 108 H (74-99) mg/dL POC Glucose (mg/dL) (70-110) mg/dL Assessment and Plan Assessment: Acute on chronic hypoxemic and hypercapnic respiratory failure, secondary to acute COPD exacerbation and extensive of right sided healthcare associated pneumonia. Acute hypercapnic encephalopathy Severe chronic obstructive pulmonary disease Chronic hypoxemic respiratory failure, secondary to above, normally on 1.5 L/min nasal cannula while at home Obstructive sleep apnea, reportedly noncompliant with home CPAP machine History of heart failure, with borderline mildly impaired left ventricular ejection fraction of 45 to 50% Pulmonary hypertension Chronic atrial fibrillation, anticoagulated with Eliquis Hyperlipidemia Hypertension Plan: The patient is seen today in room 364. The patient is on BiPAP, with settings of 16/6, and 35%. The patient is not receiving any IV fluids. The patient's procalcitonin level was 0.09. Culture data is negative. Solu-Medrol 40 mg every 8 hours. We will continue to follow the patient. Prognosis is guarded. She is a no code/DNR patient.
[2024-07-09 11:33] LABS: Glucose,Whole Blood 175 mg/dL (70-110)
--- NOTE | 2024-07-09 14:19 | P.PN ---
Subjective Patient is seen for follow-up for acute kidney injury. Serum creatinine at 1.29. Maintained on BiPAP this morning. No significant complaints today. Started on IV Lasix yesterday. Objective - Vital Signs Vital signs: Vital Signs Temp 97.6 F 07/09/24 11:49 Pulse 86 07/09/24 13:14 Resp 28 H 07/09/24 11:49 BP 150/83 07/09/24 11:49 Pulse Ox 100 07/09/24 11:49 FiO2 35 07/09/24 13:04 Intake & Output 07/08/24 07/09/24 07/09/24 18:59 06:59 18:59 Intake Total 10 118 Output Total 2800 200 1550 Balance -2800 190 -2234 Weight 95 kg Intake: IV 10 Invasive Line 6 10 Oral 118 Output: Urine 2800 200 1550 Other: Voiding Method External Catheter External Catheter External Catheter # Voids 1 # Bowel Movements 1 1 - Exam Patient is awake, comfortable, no acute distress. Examination of the heart S1 and S2 Examination of the lungs decreased breath sounds at the bases Abdomen is soft nontender Examination of lower extremities shows no significant edema. [employer]ER exam grossly intact - Labs CBC & Chem 7: 07/09/24 07:37 07/09/24 07:37 Labs: Abnormal Lab Results - Last 24 Hours (Table) 07/08/24 07/08/24 07/09/24 Range/Units 16:22 20:02 05:42 WBC (3.8-10.6) k/uL Neutrophils # (1.3-7.7) k/uL Lymphocytes # (1.0-4.8) k/uL Chloride (98-107) mmol/L Carbon Dioxide (22-30) mmol/L BUN (7-17) mg/dL Creatinine (0.52-1.04) mg/dL Glucose (74-99) mg/dL POC Glucose (mg/dL) 150 H 133 H 128 H (70-110) mg/dL 07/09/24 07/09/24 07/09/24 Range/Units 07:37 07:37 11:32 WBC 18.6 H (3.8-10.6) k/uL Neutrophils # 17.7 H (1.3-7.7) k/uL Lymphocytes # 0.4 L (1.0-4.8) k/uL Chloride 97 L (98-107) mmol/L Carbon Dioxide 36 H (22-30) mmol/L BUN 33 H (7-17) mg/dL Creatinine 1.29 H (0.52-1.04) mg/dL Glucose 108 H (74-99) mg/dL POC Glucose (mg/dL) 175 H (70-110) mg/dL Assessment and Plan Assessment: . Acute kidney injury secondary to hemodynamic ATN. Baseline creatinine 0.8 from April 2024 and peaked at 2.05 this admission -1.29 today. Nonoliguric. No hydronephrosis noted on kidney ultrasound. Left kidney atrophic. 2. Hyperkalemia secondary to acute kidney injury, losartan and potassium supplementation. Resolved. 3. Acute on chronic hypoxic and hypercapnic respiratory failure. Improved. Now on nasal cannula. 4. Pneumonia s/p antibiotics. 5. History of right upper lobe lobectomy. 6. Chronic diastolic CHF with moderate tricuspid regurgitation and severe pulmonary hypertension. 7. Hypernatremia from lack of oral water intake. Improved with D5W. 8. Hypercalcemia. Calcium level 9.7 today. Not on any calcium or vitamin D supplementation. Possibly volume contraction. PTH elevated at 130 concerning for primary hyperparathyroidism. Vitamin D 8.5. PJ level 17. 1,25 OH level 34. Raymer lambda light chain ratio not elevated. Started on Sensipar. 9. Metabolic alkalosis secondary to volume contraction and partially compensatory for underlying respiratory acidosis. Maintained on Diamox. Plan: Continue Lasix Continue with Diamox Continue Sensipar, decrease dose Replace vitamin D now that calcium has improved. Repeat labs in a.m.
[2024-07-09] MEDS: ALPRAZolam 0.25 MG TAB PO PRN (14:33)
--- NOTE | 2024-07-09 16:00 | P.PN ---
Subjective Progress Note Date: 07/09/24 Patient is a pleasant 78-year-old female with past medical history of multiple medical problems as below. Patient presents because of altered mental status. Patient cannot provide information it was obtained from the family at bedside and records. As per and family patient was not using her BiPAP and she was sleeping most of the time yesterday around 22 hours, family got concerned and brought her to the hospital today. Patient is completely confused and cannot provide information and she has evidence of acute COPD exacerbations and she was admitted to the intensive care unit for this reason. No other information is available at now. On admission: Patient was mildly hypothermic 97.2, she is breathing fast at 30, tachycardic but blood pressure stable at 136/69. Labs reviewed showing WBC 21,000, rest of CBC is unremarkable Sodium 139, potassium 5.4. Creatinine is 1.1 pH is low 7.1, pCO2 is elevated at 98 and low pO2 at 80. Liver enzymes unremarkable Chest x-ray showing right lower lobe infiltrate. Patient is DNR and DNI and this confirmed with the family. Patient is going to be admitted to the ICU CT of brain: no acute process. Moderate to severe chronic small vessel ischemic disease. CT of chest: extensive consolidation and collapse pf the right mid and lower lung and fluid collection in RUL 07/02. Patient seen and examined. Currently on BiPAP. States she feels sligh tly better. Gets short of breath on minimal exertion. Labs done this morning showed WBC 13.3, hemoglobin 13, platelet count 296 sodium 143, potassium 6.1, BUN 50, creatinine 1.72 07/03. Patient seen and examined. Patient currently on BiPAP, states she is doing slightly better. Currently alert and oriented to self and place. 2D echo done showed LVEF of 65 to 70%, mild to moderate increased left ventricular wall thickness, severe right ventricle dilatation with mild right ventricular hypokin esis, RVSP of 68, moderate tricuspid regurg 07/04. Patient seen and examined. Currently on BiPAP. Continues to be lethargic. 07/05. Patient seen and examined. Patient is lethargic but arousable, answering questions. Continues to be on BiPAP.Blood work done this morning showed WBC 8.5, hemoglobin 10.4 sodium 141, potassium 4.1, BUN 40, creatinine 1.18 07/06. Patient seen and examined. Continues to be on BiPAP. Blood work done this morning showed WC 6.8, hemoglobin 10.7, sodium 140, potassium 3.5, CO2 41, BUN 44, creatinine 1.09. Continues to be lethargic. 07/07. Patient was seen and examined today. Was on liter oxygen in the morning, required BiPAP overnight. WBCs 15.8, hemoglobin 11.4, platelets 236. Sodium is low 129, potassium 4.1, CO2 39, creatinine 1.37. Currently on Zosyn per pulmonary. Nephrology following. 07/08. Patient was seen and examined today. Patient was transferred out of ICU yesterday. Currently on BiPAP, FiO2 to 35%. Zosyn discontinued per infectious disease. On Solu-Medrol, decreased dose. Procalcitonin 0.09. WBCs 19.3 likely secondary to steroids, hemoglobin 11.5, platelet 208. CO2 39, creatinine 1.36. Blood cultures negative so far. 07/09. Patient was seen and examined today. She is seen sitting up in bed with BiPAP, awake and alert, no acute distress. She states that she is feeling well. Currently on BiPAP, FiO2 35%. WBCs 18.6 - likely secondary to steroids, hemoglobin 11.7, platelet 182. REVIEW OF SYSTEMS CONSTITUTIONAL: Denies fever or chills. CARDIOVASCULAR: Denies chest pain, palpitations or syncope. PULMONARY: Denies shortness of breath, cough, sore throat. GASTROINTESTINAL: Denies nausea, vomiting, diarrhea, abdominal pain. : Denies dysuria, urgency, frequency. Extremities: Denies muscle/joint pain or swelling. NEUROLOGICAL: Denies headaches, weakness, and numbness. PHYSICAL EXAMINATION GENERAL: A&O x3, NAD. HEENT: EOMI, sclerae anicteric, moist mucous membranes. Neck: Supple, nontender, no JVD. CARDIOVASCULAR: S1-S2 present; no murmurs, rubs, or gallops. PULMONARY: Equal breath sounds bilaterally; no wheezing or crackles. ABDOMEN: Soft, nontender, nondistended, normoactive bowel sounds; no guarding or rebound tenderness. MUSCULOSKELETAL: Normal ROM; intact peripheral pulses; no edema, cyanosis, or clubbing. Skin: Warm; no rash. DVT prophylaxis: subcutaneous Lovenox Assessment: Acute COPD exacerbation Acute hypoxic hypercapnic respiratory failure Acute respiratory acidosis Hyperkalemia Hypercalcemia Acute kidney injury Hypertension Pulmonary hypertension Chronic hypoxic respiratory failure Chronic atrial fibrillation Hyperlipidemia History of obstructive sleep apnea History of coronary artery disease status post cardiac catheterization; 2D echo done showed LVEF of 65 to 70%, mild to moderate increased left ventricular wall thickness, severe right ventricle dilatation with mild right ventricular hypokinesis, RVSP of 68 Moderate tricuspid regurgitation Plan: Monitor vital signs Monitor CBC Monitor CMP Continue telemetry monitoring Continue bronchopulmonary hygiene Continue with BiPAP as needed. Will likely transition to nasal cannula later today. Strict I's and O's, daily weights Continue D5W Acetazolamide 250 mg twice daily Sensipar 30 mg once daily Was on Zosyn, discontinued 07/08 Nephrology following Pulmonology following ID following PT/OT consult Labs and medication were reviewed. Continue same treatment. Continue with symptomatic treatment. Resume home medication. Monitor labs and vitals. DVT and GI prophylaxis. Further recommendations as per clinical course of the patient. Attestation: I have personally seen and examined the patient with Resident, karly ewed the documentation and participated and agree with the assessment and plan as written. Objective - Vital Signs Vital signs: Vital Signs Temp 97.8 F 07/09/24 03:39 Pulse 69 07/09/24 03:39 Resp 20 07/09/24 03:39 BP 132/71 07/09/24 03:39 Pulse Ox 95 07/09/24 03:39 FiO2 35 07/09/24 03:33 Intake & Output 07/08/24 07/09/24 07/09/24 18:59 06:59 18:59 Intake Total 10 Output Total 2800 200 Balance -2800 -190 Weight 95 kg Intake: IV 10 Invasive Line 6 10 Output: Urine 2800 200 Other: Voiding Method External Catheter External Catheter # Voids 1 # Bowel Movements 1 - Labs CBC & Chem 7: 07/09/24 07:37 07/09/24 07:37 Labs: Abnormal Lab Results - Last 24 Hours (Table) 07/08/24 07/08/24 07/08/24 Range/Units 08:09 08:09 11:24 WBC 19.3 H (3.8-10.6) k/uL RBC 3.73 L (3.80-5.40) m/uL MCV 101.1 H (80.0-100.0) fL MCHC 30.5 L (31.0-37.0) g/dL Neutrophils # 18.7 H (1.3-7.7) k/uL Lymphocytes # 0.2 L (1.0-4.8) k/uL Carbon Dioxide 39 H (22-30) mmol/L BUN 32 H (7-17) mg/dL Creatinine 1.36 H (0.52-1.04) mg/dL Glucose 123 H (74-99) mg/dL POC Glucose (mg/dL) 137 H (70-110) mg/dL 07/08/24 07/08/24 07/09/24 Range/Units 16:22 20:02 05:42 WBC (3.8-10.6) k/uL RBC (3.80-5.40) m/uL MCV (80.0-100.0) fL MCHC (31.0-37.0) g/dL Neutrophils # (1.3-7.7) k/uL Lymphocytes # (1.0-4.8) k/uL Carbon Dioxide (22-30) mmol/L BUN (7-17) mg/dL Creatinine (0.52-1.04) mg/dL Glucose (74-99) mg/dL POC Glucose (mg/dL) 150 H 133 H 128 H (70-110) mg/dL
[2024-07-09 16:31] LABS: Glucose,Whole Blood 166 mg/dL (70-110)
[2024-07-09] MEDS: ACETAMINOPHEN TAB 500 MG TAB PO PRN (17:35)
[2024-07-09 20:23] LABS: Glucose,Whole Blood 164 mg/dL (70-110)
--- NOTE | 2024-07-09 21:10 | P.PN ---
Subjective Progress Note Date: 07/09/24 Principal diagnosis: Reason for follow-up is pneumonia Patient is a 78-year female with a past medical history significant for hypertension COPD atrial fibrillation, obstructive sleep apnea and recent admission to the hospital April 2024 for COPD exacerbation patient has been brought into the ER by EMS as the patient was noticed to be lethargic and sleepy at home patient was noted to be short of breath, patient did have a CT with evidence of extensive consolidation concerning for pneumonia. On today's evaluation that is 07/09/2024, the patient continues to be afebrile, the patient is on BiPAP with 35% FiO2 denies having any chest pain or worsening of no abdominal pain or diarrhea has been reported. Patient white count is 18.6 today, creatinine is 1.29 blood culture has been negative sputum not collected Objective - Vital Signs Vital signs: Vital Signs Temp 97.6 F 07/09/24 11:49 Pulse 84 07/09/24 13:45 Resp 28 H 07/09/24 11:49 BP 150/83 07/09/24 11:49 Pulse Ox 100 07/09/24 11:49 FiO2 35 07/09/24 13:04 Intake & Output 07/08/24 07/09/24 07/09/24 18:59 06:59 18:59 Intake Total 10 118 Output Total 2800 200 1550 Balance -2800 190 -5147 Weight 95 kg Intake: IV 10 Invasive Line 6 10 Oral 118 Output: Urine 2800 200 1550 Other: Voiding Method External Catheter External Catheter External Catheter # Voids 1 # Bowel Movements 1 1 - Exam GENERAL DESCRIPTION: An elderly female lying in bed in no distress RESPIRATORY SYSTEM: Unlabored breathing , decreased breath sounds at bases HEART: S1 S2 regular rate and rhythm , ABDOMEN: Soft , no tenderness EXTREMITIES: No edema feet - Labs CBC & Chem 7: 07/09/24 07:37 07/09/24 07:37 Labs: Abnormal Lab Results - Last 24 Hours (Table) 07/08/24 07/08/24 07/09/24 Range/Units 16:22 20:02 05:42 WBC (3.8-10.6) k/uL Neutrophils # (1.3-7.7) k/uL Lymphocytes # (1.0-4.8) k/uL Chloride (98-107) mmol/L Carbon Dioxide (22-30) mmol/L BUN (7-17) mg/dL Creatinine (0.52-1.04) mg/dL Glucose (74-99) mg/dL POC Glucose (mg/dL) 150 H 133 H 128 H (70-110) mg/dL 07/09/24 07/09/24 07/09/24 Range/Units 07:37 07:37 11:32 WBC 18.6 H (3.8-10.6) k/uL Neutrophils # 17.7 H (1.3-7.7) k/uL Lymphocytes # 0.4 L (1.0-4.8) k/uL Chloride 97 L (98-107) mmol/L Carbon Dioxide 36 H (22-30) mmol/L BUN 33 H (7-17) mg/dL Creatinine 1.29 H (0.52-1.04) mg/dL Glucose 108 H (74-99) mg/dL POC Glucose (mg/dL) 175 H (70-110) mg/dL Assessment and Plan (1) Pneumonia Current Visit: Yes Status: Acute Code(s): J18.9 - PNEUMONIA, UNSPECIFIED ORGANISM SNOMED Code(s): 924477129 (2) Sepsis Current Visit: Yes Status: Acute Code(s): A41.9 - SEPSIS, UNSPECIFIED ORGANISM SNOMED Code(s): 23084272 (3) Leukocytosis Current Visit: No Status: Acute Code(s): D72.829 - ELEVATED WHITE BLOOD CELL COUNT, UNSPECIFIED SNOMED Code(s): 109063250 Plan: 1patient presented to hospital with sepsis in this patient who did have elevated white count tachycardia source is likely pneumonia with evidence of right-sided consolidation question of aspiration/gram-negative as the patient has been in and out of the hospital, gram-positive infection not entirely excluded 2-patient blood cultures has been negative, sputum has not been collected did have elevated procalcitonin on admission 3patient leukocytosis more likely steroid related we will monitor closely for repeat her procalcitonin and CRP with a.m. lab Dictation was produced using [employer] dictation software. please excuse any grammatical, word or spelling errors. Time with Patient: Less than 30
[2024-07-10 06:25] LABS: Glucose,Whole Blood 104 mg/dL (70-110)
[2024-07-10 08:57] LABS: HCT 37.3 % (34.0-46.0); HGB 11.7 gm/dL (11.4-16.0); Hypochromasia Moderate; MCH 31.2 pg (25.0-35.0); MCHC 31.3 g/dL (31.0-37.0); MCV 99.5 fL (80.0-100.0); Mean Platelet Volume 7.8; Platelet Count 213 k/uL (150-450); RBC 3.75 m/uL (3.80-5.40); RDW 13.9 % (11.5-15.5); WBC 19.4 k/uL (3.8-10.6)
[2024-07-10 09:07] LABS: ALT 28 U/L (4-34); AST 37 U/L (14-36); African American GFR (CKD) 54 (>60 ml/min/1.73 sqM); Albumin 3.2 g/dL (3.5-5.0); Alkaline Phosphatase 70 U/L (38-126); Blood Urea Nitrogen 31 mg/dL (7-17); C Reactive Protein <0.5 mg/dL (<1.0); Calcium 9.4 mg/dL (8.4-10.2); Chloride 96 mmol/L (98-107); Glucose 97 mg/dL (74-99); Magnesium 1.9 mg/dL (1.6-2.3); Non-African American GFR(CKD) 46 (>60 ml/min/1.73 sqM); Potassium 3.9 mmol/L (3.5-5.1); Sodium 135 mmol/L (137-145); Total Bilirubin 0.8 mg/dL (0.2-1.3); Total Protein 5.6 g/dL (6.3-8.2)
[2024-07-10 09:11] LABS: Anion Gap 1 mmol/L; Carbon Dioxide 38 mmol/L (22-30)
--- NOTE | 2024-07-10 11:16 | P.PN ---
Subjective Patient is seen for follow-up for acute kidney injury. Serum creatinine at 1.13. Maintained on BiPAP this morning. No significant complaints today. Maintained on IV Lasix 40 mg daily. No complaints of shortness of breath. Objective - Vital Signs Vital signs: Vital Signs Temp 98.0 F 07/10/24 04:00 Pulse 79 07/10/24 04:00 Resp 23 07/10/24 04:00 BP 134/63 07/10/24 04:00 Pulse Ox 96 07/10/24 04:00 FiO2 35 07/10/24 04:00 Intake & Output 07/09/24 07/10/24 07/10/24 18:59 06:59 18:59 Intake Total 236 236 Output Total 2550 800 Balance -1624 -839 Intake: Oral 236 236 Output: Urine 2550 800 Other: Voiding Method External Catheter External Catheter # Voids 1 # Bowel Movements 1 - Exam Patient is awake, comfortable, no acute distress. Examination of the heart S1 and S2 Examination of the lungs decreased breath sounds at the bases Abdomen is soft nontender Examination of lower extremities shows no significant edema. H[employer]DER exam grossly intact - Labs CBC & Chem 7: 07/10/24 08:27 07/10/24 08:27 Labs: Abnormal Lab Results - Last 24 Hours (Table) 07/09/24 07/09/24 07/09/24 Range/Units 11:32 16:30 19:54 WBC (3.8-10.6) k/uL RBC (3.80-5.40) m/uL Sodium (137-145) mmol/L Chloride (98-107) mmol/L Carbon Dioxide (22-30) mmol/L BUN (7-17) mg/dL Creatinine (0.52-1.04) mg/dL POC Glucose (mg/dL) 175 H 166 H 164 H (70-110) mg/dL AST (14-36) U/L Total Protein (6.3-8.2) g/dL Albumin (3.5-5.0) g/dL 07/10/24 07/10/24 Range/Units 08:27 08:27 WBC 19.4 H (3.8-10.6) k/uL RBC 3.75 L (3.80-5.40) m/uL Sodium 135 L (137-145) mmol/L Chloride 96 L (98-107) mmol/L Carbon Dioxide 38 H (22-30) mmol/L BUN 31 H (7-17) mg/dL Creatinine 1.13 H (0.52-1.04) mg/dL POC Glucose (mg/dL) (70-110) mg/dL AST 37 H (14-36) U/L Total Protein 5.6 L (6.3-8.2) g/dL Albumin 3.2 L (3.5-5.0) g/dL Assessment and Plan Assessment: . Acute kidney injury secondary to hemodynamic ATN. Baseline creatinine 0.8 from April 2024 and peaked at 2.05 this admission -1.13 today. Nonoliguric. No hydronephrosis noted on kidney ultrasound. Left kidney atrophic. 2. Hyperkalemia secondary to acute kidney injury, losartan and potassium supplementation. Resolved. 3. Acute on chronic hypoxic and hypercapnic respiratory failure. Improved. Now on nasal cannula. 4. Pneumonia s/p antibiotics. 5. History of right upper lobe lobectomy. 6. Chronic diastolic CHF with moderate tricuspid regurgitation and severe pulmonary hypertension. 7. Hypernatremia from lack of oral water intake. Improved with D5W. 8. Hypercalcemia. Calcium level 9.7 today. Not on any calcium or vitamin D supplementation. Possibly volume contraction. PTH elevated at 130 concerning for primary hyperparathyroidism. Vitamin D 8.5. PJ level 17. 1,25 [place] level 34. [place] lambda light chain ratio not elevated. Started on Sensipar. 9. Metabolic alkalosis secondary to volume contraction and partially compensatory for underlying respiratory acidosis. Maintained on Diamox. Plan: Continue Lasix Continue with Diamox Continue Sensipar, decrease dose to twice a week upon discharge. Replace vitamin D now that calcium has improved. Repeat labs in a.m.
[2024-07-10 11:21] LABS: Glucose,Whole Blood 134 mg/dL (70-110)
[2024-07-10 13:22] VITALS: BMI 33.7
--- NOTE | 2024-07-10 13:48 | P.PN ---
Subjective Progress Note Date: 07/10/24 On today's evaluation of 07/10/2024, the patient is being seen for a follow-up. He is currently on 3 Suboxone by nasal cannula with a pulse ox of 93%. Most recent chest x-ray from 07/07/2024 showed resolving bibasilar atelectasis changes. The patient is calm and comfortable. Profoundly weak and debilitated. The white circles of 19.4 with a hemoglobin 1.7 and a platelet count of 230. BUN 31 with a creatinine 1.1 and a sodium level of 135. The patient is known to have advanced COPD and he has chronic hypoxic respiratory failure. He is also known to have obstructive sleep apnea. He is utilizing a BiPAP pressure of 16 over 6 cm of water with an FiO2 of 35% overnight and oxygen between 2 and 3 L/ min nasal cannula in the morning. The patient remains on Lasix 40 mg IV every 24 hours. Remains on DuoNeb nebulized treatments [id number]. No antibiotic coverage for now. He remains on Lovenox 40 mg subcu for DVT prophylaxis. Blood cultures from this current admission has been negative. He typically uses oxygen at 2 L nasal cannula on outpatient basis. Not compliant to home CPAP therapy. He is arousable and communicating. No new complaints otherwise for now. Objective - Vital Signs Vital signs: Vital Signs Temp 98.0 F 07/10/24 04:00 Pulse 79 07/10/24 04:00 Resp 23 07/10/24 04:00 BP 134/63 07/10/24 04:00 Pulse Ox 96 07/10/24 04:00 FiO2 35 07/10/24 04:00 Intake & Output 07/09/24 07/10/24 07/10/24 18:59 06:59 18:59 Intake Total 236 236 Output Total 2550 800 Balance -8124 564 Intake: Oral 236 236 Output: Urine 2550 800 Other: Voiding Method External Catheter External Catheter # Voids 1 # Bowel Movements 1 - Labs CBC & Chem 7: 07/10/24 08:27 07/10/24 08:27 Labs: Abnormal Lab Results - Last 24 Hours (Table) 07/09/24 07/09/24 07/09/24 Range/Units 11:32 16:30 19:54 WBC (3.8-10.6) k/uL RBC (3.80-5.40) m/uL Sodium (137-145) mmol/L Chloride (98-107) mmol/L Carbon Dioxide (22-30) mmol/L BUN (7-17) mg/dL Creatinine (0.52-1.04) mg/dL POC Glucose (mg/dL) 175 H 166 H 164 H (70-110) mg/dL AST (14-36) U/L Total Protein (6.3-8.2) g/dL Albumin (3.5-5.0) g/dL 07/10/24 07/10/24 Range/Units 08:27 08:27 WBC 19.4 H (3.8-10.6) k/uL RBC 3.75 L (3.80-5.40) m/uL Sodium 135 L (137-145) mmol/L Chloride 96 L (98-107) mmol/L Carbon Dioxide 38 H (22-30) mmol/L BUN 31 H (7-17) mg/dL Creatinine 1.13 H (0.52-1.04) mg/dL POC Glucose (mg/dL) (70-110) mg/dL AST 37 H (14-36) U/L Total Protein 5.6 L (6.3-8.2) g/dL Albumin 3.2 L (3.5-5.0) g/dL Assessment and Plan Plan: Acute on chronic hypoxemic and hypercapnic respiratory failure, secondary to acute COPD exacerbation and extensive of right sided healthcare associated pneumonia. Clinically improved and the patient is currently on 3 liters of oxygen by nasal cannula Acute hypercapnic encephalopathy, currently stable. Utilizing BiPAP overnight. Right lung atelectasis, improved on subsequent chest x-rays Severe chronic obstructive pulmonary disease Chronic hypoxemic respiratory failure, secondary to above, normally on 1.5 L/min nasal cannula while at home Obstructive sleep apnea, reportedly noncompliant with home CPAP machine History of heart failure, with borderline mildly impaired left ventricular ejection fraction of 45 to 50% Pulmonary hypertension Chronic atrial fibrillation, anticoagulated with Eliquis Hyperlipidemia Hypertension Plan: Repeat chest x-ray in the morning Currently on oxygen at 2 L/min nasal cannula Overnight, the patient is on BiPAP, with settings of 16/6, and 35%. The patient is not receiving any IV fluids. Provide incentive spirometer the patient's procalcitonin level was 0.09. Culture data is negative. S Continue IV solu-Medrol 40 mg every 8 hours for another 24 hours Increase mobility and the patient should be able to transition on a recliner today with the help of physical therapy We will continue to follow the patient. Prognosis is guarded. She is a no code/DNR patient.
--- NOTE | 2024-07-10 14:56 | P.PN ---
Subjective Progress Note Date: 07/10/24 Patient is a pleasant 78-year-old female with past medical history of multiple medical problems as below. Patient presents because of altered mental status. Patient cannot provide information it was obtained from the family at bedside and records. As per and family patient was not using her BiPAP and she was sleeping most of the time yesterday around 22 hours, family got concerned and brought her to the hospital today. Patient is completely confused and cannot provide information and she has evidence of acute COPD exacerbations and she was admitted to the intensive care unit for this reason. No other information is available at now. On admission: Patient was mildly hypothermic 97.2, she is breathing fast at 30, tachycardic but blood pressure stable at 136/69. Labs reviewed showing WBC 21,000, rest of CBC is unremarkable Sodium 139, potassium 5.4. Creatinine is 1.1 pH is low 7.1, pCO2 is elevated at 98 and low pO2 at 80. Liver enzymes unremarkable Chest x-ray showing right lower lobe infiltrate. Patient is DNR and DNI and this confirmed with the family. Patient is going to be admitted to the ICU CT of brain: no acute process. Moderate to severe chronic small vessel ischemic disease. CT of chest: extensive consolidation and collapse pf the right mid and lower lung and fluid collection in RUL 07/02. Patient seen and examined. Currently on BiPAP. States she feels sligh tly better. Gets short of breath on minimal exertion. Labs done this morning showed WBC 13.3, hemoglobin 13, platelet count 296 sodium 143, potassium 6.1, BUN 50, creatinine 1.72 07/03. Patient seen and examined. Patient currently on BiPAP, states she is doing slightly better. Currently alert and oriented to self and place. 2D echo done showed LVEF of 65 to 70%, mild to moderate increased left ventricular wall thickness, severe right ventricle dilatation with mild right ventricular hypokin esis, RVSP of 68, moderate tricuspid regurg 07/04. Patient seen and examined. Currently on BiPAP. Continues to be lethargic. 07/05. Patient seen and examined. Patient is lethargic but arousable, answering questions. Continues to be on BiPAP.Blood work done this morning showed WBC 8.5, hemoglobin 10.4 sodium 141, potassium 4.1, BUN 40, creatinine 1.18 07/06. Patient seen and examined. Continues to be on BiPAP. Blood work done this morning showed WC 6.8, hemoglobin 10.7, sodium 140, potassium 3.5, CO2 41, BUN 44, creatinine 1.09. Continues to be lethargic. 07/07. Patient was seen and examined today. Was on liter oxygen in the morning, required BiPAP overnight. WBCs 15.8, hemoglobin 11.4, platelets 236. Sodium is low 129, potassium 4.1, CO2 39, creatinine 1.37. Currently on Zosyn per pulmonary. Nephrology following. 07/08. Patient was seen and examined today. Patient was transferred out of ICU yesterday. Currently on BiPAP, FiO2 to 35%. Zosyn discontinued per infectious disease. On Solu-Medrol, decreased dose. Procalcitonin 0.09. WBCs 19.3 likely secondary to steroids, hemoglobin 11.5, platelet 208. CO2 39, creatinine 1.36. Blood cultures negative so far. 07/09. Patient was seen and examined today. She is seen sitting up in bed with BiPAP, awake and alert, no acute distress. She states that she is feeling well. Currently on BiPAP, FiO2 35%. WBCs 18.6 - likely secondary to steroids, hemoglobin 11.7, platelet 182. 07/10--- patient was seen and examined today. Required BiPAP overnight, currently on 3 L oxygen saturating 93%. Patient family at bedside, patient up in the chair, anticipate subacute rehab given patient appears debilitated and weak. Blood culture negative so far. WBCs 19.4, hemoglobin 11.7, platelet 213. BUN showed sodium 135, potassium 3.9, creatinine 1.13 trending down. BUN 31. Pulmonary following. Patient currently on IV Lasix to 24-hour for fluid overload. Also on acetazolamide due to contraction alkalosis. Also on i nhalers/bronchodilator protocol. Patient at baseline uses 2 L oxygen. Noncompliant to CPAP therapy. PT/OT consulted. REVIEW OF SYSTEMS CONSTITUTIONAL: Denies fever or chills. CARDIOVASCULAR: Denies chest pain, palpitations or syncope. PULMONARY: Denies shortness of breath, cough, sore throat. GASTROINTESTINAL: Denies nausea, vomiting, diarrhea, abdominal pain. : Denies dysuria, urgency, frequency. Extremities: Denies muscle/joint pain or swelling. NEUROLOGICAL: Denies headaches, weakness, and numbness. PHYSICAL EXAMINATION GENERAL: A&O x3, NAD. HEENT: EOMI, sclerae anicteric, moist mucous membranes. Neck: Supple, nontender, no JVD. CARDIOVASCULAR: S1-S2 present; no murmurs, rubs, or gallops. PULMONARY: Equal breath sounds bilaterally; no wheezing , +crackles. ABDOMEN: Soft, nontender, nondistended, normoactive bowel sounds; no guarding or rebound tenderness. MUSCULOSKELETAL: Normal ROM; intact peripheral pulses; + edema, cyanosis, or clubbing. Skin: Warm; no rash. DVT prophylaxis: subcutaneous Lovenox Assessment: Acute COPD exacerbation Acute hypoxic hypercapnic respiratory failure Acute on chronic diastolic CHF: Acute respiratory acidosis: Contraction alkalosis secondary to diuresis: Hyperkalemia-resolved Hypercalcemia-resolved Acute kidney injury--improving Hypertension Pulmonary hypertension Chronic hypoxic respiratory failure--2 L at baseline Chronic atrial fibrillation Hyperlipidemia History of obstructive sleep apnea--noncompliant with CPAP History of coronary artery disease status post cardiac catheterization; 2D echo done showed LVEF of 65 to 70%, mild to moderate increased left ventricular wall thickness, severe right ventricle dilatation with mild right ventricular hypokinesis, RVSP of 68 Moderate tricuspid regurgitation Plan: Monitor vital signs Monitor CBC Monitor CMP Continue telemetry monitoring Continue bronchopulmonary hygiene Continue with BiPAP as needed. Will likely transition to nasal cannula later today. Strict I's and O's, daily weights Acetazolamide 250 mg twice daily Sensipar 30 mg once daily Was on Zosyn, discontinued 07/08 Solu-Medrol every 8 hour. Nephrology following Pulmonology following ID following PT/OT consulted--expect subacute rehab Labs and medication were reviewed. Continue same treatment. Continue with s ymptomatic treatment. Resume home medication. Monitor labs and vitals. DVT and GI prophylaxis. Further recommendations as per clinical course of the patient. Objective - Vital Signs Vital signs: Vital Signs Temp 98.0 F 07/10/24 04:00 Pulse 80 07/10/24 12:41 Resp 23 07/10/24 04:00 BP 134/63 07/10/24 04:00 Pulse Ox 93 L 07/10/24 12:34 FiO2 35 07/10/24 04:00 Intake & Output 07/09/24 07/10/24 07/10/24 18:59 06:59 18:59 Intake Total 236 236 Output Total 2550 800 Balance -1928 -262 Weight 95 kg Intake: Oral 236 236 Output: Urine 2550 800 Other: Voiding Method External Catheter External Catheter # Voids 1 # Bowel Movements 1 - Labs CBC & Chem 7: 07/10/24 08:27 07/10/24 08:27 Labs: Abnormal Lab Results - Last 24 Hours (Table) 07/09/24 07/09/24 07/10/24 Range/Units 16:30 19:54 08:27 WBC 19.4 H (3.8-10.6) k/uL RBC 3.75 L (3.80-5.40) m/uL Sodium (137-145) mmol/L Chloride (98-107) mmol/L Carbon Dioxide (22-30) mmol/L BUN (7-17) mg/dL Creatinine (0.52-1.04) mg/dL POC Glucose (mg/dL) 166 H 164 H (70-110) mg/dL AST (14-36) U/L Total Protein (6.3-8.2) g/dL Albumin (3.5-5.0) g/dL 07/10/24 07/10/24 Range/Units 08:27 11:17 WBC (3.8-10.6) k/uL RBC (3.80-5.40) m/uL Sodium 135 L (137-145) mmol/L Chloride 96 L (98-107) mmol/L Carbon Dioxide 38 H (22-30) mmol/L BUN 31 H (7-17) mg/dL Creatinine 1.13 H (0.52-1.04) mg/dL POC Glucose (mg/dL) 134 H (70-110) mg/dL AST 37 H (14-36) U/L Total Protein 5.6 L (6.3-8.2) g/dL Albumin 3.2 L (3.5-5.0) g/dL
--- NOTE | 2024-07-10 15:54 | P.PN ---
Subjective Progress Note Date: 07/10/24 Principal diagnosis: Reason for follow-up is pneumonia Patient is a 78-year female with a past medical history significant for hypertension COPD atrial fibrillation, obstructive sleep apnea and recent admission to the hospital April 2024 for COPD exacerbation patient has been brought into the ER by EMS as the patient was noticed to be lethargic and sleepy at home patient was noted to be short of breath, patient did have a CT with evidence of extensive consolidation concerning for pneumonia. On today's evaluation that is 07/10/2024, Patient is afebrile patient is c urrently on 2 L nasal cannula oxygen and denies having any shortness of breath, the patient denies any chest pain continue to have cough but not bringing up any sputum, the patient denies any nausea vomiting did not have any abdominal pain and no diarrhea. White count is 19.4, creatinine is 1.13 Objective - Vital Signs Vital signs: Vital Signs Temp 98.0 F 07/10/24 04:00 Pulse 80 07/10/24 12:41 Resp 23 07/10/24 04:00 BP 134/63 07/10/24 04:00 Pulse Ox 93 L 07/10/24 12:34 FiO2 35 07/10/24 04:00 Intake & Output 07/09/24 07/10/24 07/10/24 18:59 06:59 18:59 Intake Total 236 236 Output Total 2550 800 Balance -2314 -564 Weight 95 kg Intake: Oral 236 236 Output: Urine 2550 800 Other: Voiding Method External Catheter External Catheter # Voids 1 # Bowel Movements 1 - Exam GENERAL DESCRIPTION: An elderly female lying in bed in no distress RESPIRATORY SYSTEM: Unlabored breathing , decreased breath sounds at bases HEART: S1 S2 regular rate and rhythm , ABDOMEN: Soft , no tenderness EXTREMITIES: No edema feet - Labs CBC & Chem 7: 07/10/24 08:27 07/10/24 08:27 Labs: Abnormal Lab Results - Last 24 Hours (Table) 07/09/24 07/09/24 07/10/24 Range/Units 16:30 19:54 08:27 WBC 19.4 H (3.8-10.6) k/uL RBC 3.75 L (3.80-5.40) m/uL Sodium (137-145) mmol/L Chloride (98-107) mmol/L Carbon Dioxide (22-30) mmol/L BUN (7-17) mg/dL Creatinine (0.52-1.04) mg/dL POC Glucose (mg/dL) 166 H 164 H (70-110) mg/dL AST (14-36) U/L Total Protein (6.3-8.2) g/dL Albumin (3.5-5.0) g/dL 07/10/24 07/10/24 Range/Units 08:27 11:17 WBC (3.8-10.6) k/uL RBC (3.80-5.40) m/uL Sodium 135 L (137-145) mmol/L Chloride 96 L (98-107) mmol/L Carbon Dioxide 38 H (22-30) mmol/L BUN 31 H (7-17) mg/dL Creatinine 1.13 H (0.52-1.04) mg/dL POC Glucose (mg/dL) 134 H (70-110) mg/dL AST 37 H (14-36) U/L Total Protein 5.6 L (6.3-8.2) g/dL Albumin 3.2 L (3.5-5.0) g/dL Assessment and Plan (1) Pneumonia Current Visit: Yes Status: Acute Code(s): J18.9 - PNEUMONIA, UNSPECIFIED ORGANISM SNOMED Code(s): 475835048 (2) Sepsis Current Visit: Yes Status: Acute Code(s): A41.9 - SEPSIS, UNSPECIFIED ORGANISM SNOMED Code(s): 58113504 (3) Leukocytosis Current Visit: No Status: Acute Code(s): D72.829 - ELEVATED WHITE BLOOD CELL COUNT, UNSPECIFIED SNOMED Code(s): 587792218 Plan: 1patient presented to hospital with sepsis in this patient who did have elevated white count tachycardia source is likely pneumonia with evidence of right-sided consolidation question of aspiration/gram-negative as the patient has been in and out of the hospital, gram-positive infection not entirely excluded 2-patient blood cultures has been negative, sputum has not been collected did have elevated procalcitonin on admission 3patient leukocytosis more likely steroid related, did have a normal CRP with a procalcitonin currently pending Dictation was produced using [employer] dictation software. please excuse any grammatical, word or spelling errors. Time with Patient: Less than 30
[2024-07-10 16:20] LABS: Glucose,Whole Blood 145 mg/dL (70-110)
--- NOTE | 2024-07-10 16:36 | NM ---
EXAMINATION TYPE: NM parathyroid DATE OF EXAM: 07/10/2024 COMPARISON: NONE CLINICAL INDICATION: Female, 78 years old with history of hypercalcemia; TECHNIQUE: Following administration of 24.2 mCi Tc99m Sestamibi. Anterior projection images of the neck and ches t were obtained 10 minutes and 3.5 hours post injection FINDINGS: Thyroid tracer washout: Delayed images demonstrate near-complete tracer washout from the thyroid. Parathyroid uptake: None. The two-hour delayed images do not demonstrate any focal abnormal persisten t uptake in the region of the parathyroid glands to suggest parathyroid adenoma. Normal uptake: There is physiological tracer uptake in the myocardium, liver, salivary glands, and th yroid gland. IMPRESSION: Normal parathyroid imaging study. No evidence for mediastinal uptake to suggest mediastinal parathyro id adenoma
[2024-07-10 20:02] LABS: Glucose,Whole Blood 148 mg/dL (70-110)
[2024-07-11 06:32] LABS: Glucose,Whole Blood 96 mg/dL (70-110)
[2024-07-11 07:06] LABS: Basophils % (A) 0 %; Eosinophils # (A) 0.2 k/uL (0-0.7); Eosinophils % (A) 1 %; HCT 39.3 % (34.0-46.0); HGB 12.1 gm/dL (11.4-16.0); Hypochromasia Marked; Lymphocytes # (A) 0.7 k/uL (1.0-4.8); Lymphocytes % (A) 4 %; MCH 30.9 pg (25.0-35.0); MCHC 30.9 g/dL (31.0-37.0); MCV 99.9 fL (80.0-100.0); Mean Platelet Volume 8.2; Monocytes # (A) 0.8 k/uL (0-1.0); Monocytes % (A) 4 %; Neutrophils # (A) 18.4 k/uL (1.3-7.7); Neutrophils % (A) 91 %; Platelet Count 195 k/uL (150-450); RBC 3.93 m/uL (3.80-5.40); RDW 13.8 % (11.5-15.5); WBC 20.3 k/uL (3.8-10.6)
[2024-07-11 07:20] LABS: African American GFR (CKD) 55 (>60 ml/min/1.73 sqM); Blood Urea Nitrogen 35 mg/dL (7-17); Calcium 9.1 mg/dL (8.4-10.2); Chloride 95 mmol/L (98-107); Glucose 96 mg/dL (74-99); Non-African American GFR(CKD) 48 (>60 ml/min/1.73 sqM); Potassium 3.5 mmol/L (3.5-5.1); Sodium 139 mmol/L (137-145)
--- NOTE | 2024-07-11 07:21 | XR ---
EXAMINATION TYPE: XR chest 1V DATE OF EXAM: 07/11/2024 6:51 AM CLINICAL INDICATION: Female, 78 years old with history of Right lung atelectasis; [facility] COMPARISON: Chest radiographs from 07/07/2024. TECHNIQUE: XR chest 1V Frontal view of the chest. FINDINGS: Lungs/Pleura: Low lung volumes are present. There is no evidence of pleural effusion, focal consolida tion, or pneumothorax. Pulmonary vascularity: Mild pulmonary vascular congestion. Heart/mediastinum: Cardiomediastinal silhouette is enlarged. Musculoskeletal: No acute osseous pathology. Other findings: None IMPRESSION: Cardiomegaly with possible mild pulmonary vascular congestion and basilar atelectasis not significant ly changed from prior.
[2024-07-11 07:27] LABS: Anion Gap 6 mmol/L
[2024-07-11 07:30] LABS: Carbon Dioxide 38 mmol/L (22-30)
[2024-07-11 11:31] LABS: Glucose,Whole Blood 129 mg/dL (70-110)
--- NOTE | 2024-07-11 13:15 | P.PN ---
Subjective Patient is seen for follow-up for acute kidney injury. Serum creatinine at 1.10. Maintained on BiPAP this morning. No significant complaints today. Maintained on IV Lasix 40 mg daily. No complaints of shortness of breath. Objective - Vital Signs Vital signs: Vital Signs Temp 98.0 F 07/11/24 08:26 Pulse 92 07/11/24 12:01 Resp 26 H 07/11/24 11:33 BP 142/73 07/11/24 11:33 Pulse Ox 92 L 07/11/24 11:33 FiO2 35 07/11/24 00:00 Intake & Output 07/10/24 07/11/24 07/11/24 18:59 06:59 18:59 Intake Total 458 220 Output Total 1300 Balance -842 220 Weight 95 kg 87 kg Intake: Oral 458 220 Output: Urine 1300 Other: Voiding Method External Catheter External Catheter External Catheter # Voids 1 2 # Bowel Movements 1 1 - Exam Patient is awake, comfortable, no acute distress. Examination of the heart S1 and S2 Examination of the lungs decreased breath sounds at the bases Abdomen is soft nontender Examination of lower extremities shows no significant edema. 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 MODIFICATION TECHNICIAN exam grossly intact - Labs CBC & Chem 7: 07/11/24 06:40 07/11/24 06:40 Labs: Abnormal Lab Results - Last 24 Hours (Table) 07/10/24 07/10/24 07/11/24 Range/Units 16:19 19:59 06:40 WBC 20.3 H (3.8-10.6) k/uL MCHC 30.9 L (31.0-37.0) g/dL Neutrophils # 18.4 H (1.3-7.7) k/uL Lymphocytes # 0.7 L (1.0-4.8) k/uL Chloride (98-107) mmol/L Carbon Dioxide (22-30) mmol/L BUN (7-17) mg/dL Creatinine (0.52-1.04) mg/dL POC Glucose (mg/dL) 145 H 148 H (70-110) mg/dL 07/11/24 07/11/24 Range/Units 06:40 11:29 WBC (3.8-10.6) k/uL MCHC (31.0-37.0) g/dL Neutrophils # (1.3-7.7) k/uL Lymphocytes # (1.0-4.8) k/uL Chloride 95 L (98-107) mmol/L Carbon Dioxide 38 H (22-30) mmol/L BUN 35 H (7-17) mg/dL Creatinine 1.10 H (0.52-1.04) mg/dL POC Glucose (mg/dL) 129 H (70-110) mg/dL Assessment and Plan Assessment: . Acute kidney injury secondary to hemodynamic ATN. Baseline creatinine 0.8 from April 2024 and peaked at 2.05 this admission -1.13 today. Nonoliguric. No hydronephrosis noted on kidney ultrasound. Left kidney atrophic. 2. Hyperkalemia secondary to acute kidney injury, losartan and potassium supplementation. Resolved. 3. Acute on chronic hypoxic and hypercapnic respiratory failure. Improved. Now on nasal cannula. 4. Pneumonia s/p antibiotics. 5. History of right upper lobe lobectomy. 6. Chronic diastolic CHF with moderate tricuspid regurgitation and severe pulmonary hypertension. 7. Hypernatremia from lack of oral water intake. Improved with D5W. 8. Hypercalcemia. Not on any calcium or vitamin D supplementation. Possibly volume contraction. PTH elevated at 130 concerning for primary hyperparathyroidism. Parathyroid nuclear scan was negative. PTH was likely elevated secondary to acute kidney injury. Vitamin D 8.5. PJ level 17. 1,25 [place] level 34. [place] lambda light chain ratio not elevated. Started on Sensipar 9. Metabolic alkalosis secondary to volume contraction and partially compensatory for underlying respiratory acidosis. Maintained on Diamox. Plan: Continue Lasix Continue with Diamox Can discontinue Sensipar upon discharge. PTH was likely elevated from acute kidney injury. Parathyroid scan is negative for adenoma. Replace vitamin D now that calcium has improved.
--- NOTE | 2024-07-11 14:37 | P.PN ---
Subjective Progress Note Date: 07/11/24 Patient is a pleasant 78-year-old female with past medical history of multiple medical problems as below. Patient presents because of altered mental status. Patient cannot provide information it was obtained from the family at bedside and records. As per and family patient was not using her BiPAP and she was sleeping most of the time yesterday around 22 hours, family got concerned and brought her to the hospital today. Patient is completely confused and cannot provide information and she has evidence of acute COPD exacerbations and she was admitted to the intensive care unit for this reason. No other information is available at now. On admission: Patient was mildly hypothermic 97.2, she is breathing fast at 30, tachycardic but blood pressure stable at 136/69. Labs reviewed showing WBC 21,000, rest of CBC is unremarkable Sodium 139, potassium 5.4. Creatinine is 1.1 pH is low 7.1, pCO2 is elevated at 98 and low pO2 at 80. Liver enzymes unremarkable Chest x-ray showing right lower lobe infiltrate. Patient is DNR and DNI and this confirmed with the family. Patient is going to be admitted to the ICU CT of brain: no acute process. Moderate to severe chronic small vessel ischemic disease. CT of chest: extensive consolidation and collapse pf the right mid and lower lung and fluid collection in RUL 07/02. Patient seen and examined. Currently on BiPAP. States she feels sligh tly better. Gets short of breath on minimal exertion. Labs done this morning showed WBC 13.3, hemoglobin 13, platelet count 296 sodium 143, potassium 6.1, BUN 50, creatinine 1.72 07/03. Patient seen and examined. Patient currently on BiPAP, states she is doing slightly better. Currently alert and oriented to self and place. 2D echo done showed LVEF of 65 to 70%, mild to moderate increased left ventricular wall thickness, severe right ventricle dilatation with mild right ventricular hypokin esis, RVSP of 68, moderate tricuspid regurg 07/04. Patient seen and examined. Currently on BiPAP. Continues to be lethargic. 07/05. Patient seen and examined. Patient is lethargic but arousable, answering questions. Continues to be on BiPAP.Blood work done this morning showed WBC 8.5, hemoglobin 10.4 sodium 141, potassium 4.1, BUN 40, creatinine 1.18 07/06. Patient seen and examined. Continues to be on BiPAP. Blood work done this morning showed WBCs 6.8, hemoglobin 10.7, sodium 140, potassium 3.5, CO2 41, BUN 44, creatinine 1.09. Continues to be lethargic. 07/07. Patient was seen and examined today. Was on liter oxygen in the morning, required BiPAP overnight. WBCs 15.8, hemoglobin 11.4, platelets 236. Sodium is low 129, potassium 4.1, CO2 39, creatinine 1.37. Currently on Zosyn per pulmonary. Nephrology following. 07/08. Patient was seen and examined today. Patient was transferred out of ICU yesterday. Currently on BiPAP, FiO2 to 35%. Zosyn discontinued per infectious disease. On Solu-Medrol, decreased dose. Procalcitonin 0.09. WBCs 19.3 likely secondary to steroids, hemoglobin 11.5, platelet 208. CO2 39, creatinine 1.36. Blood cultures negative so far. 07/09. Patient was seen and examined today. She is seen sitting up in bed with BiPAP, awake and alert, no acute distress. She states that she is feeling well. Currently on BiPAP, FiO2 35%. WBCs 18.6 - likely secondary to steroids, hemoglobin 11.7, platelet 182. 07/10. Patient was seen and examined today. Required BiPAP overnight, currently on 3 L oxygen saturating 93%. Patient family at bedside, patient up in the chair, anticipate subacute rehab given patient appears debilitated and weak. Blood culture negative so far. WBCs 19.4, hemoglobin 11.7, platelet 213. BUN showed sodium 135, potassium 3.9, creatinine 1.13 trending down. BUN 31. Pulmonary following. Patient currently on IV Lasix to 24-hour for fluid overload. Also on acetazolamide due to contraction alkalosis. Also on inhalers/bronchodilator protocol. Patient at baseline uses 2 L oxygen. Noncompliant to CPAP therapy. PT/OT consulted. 07/11. Patient was seen and examined today. She is resting comfortably in bed. Required BiPAP overnight at 16/6 35%, currently on 2 L nasal cannula. WBCs 20.3, hemoglobin 12.1, platelet 195, BUN 35, creatinine 1.1, sodium 139, potassium 3.5. On inhaler/bronchodilator protocol. Also on acetazolamide due to contraction alkalosis. REVIEW OF SYSTEMS CONSTITUTIONAL: Denies fever or chills. CARDIOVASCULAR: Denies chest pain, palpitations or syncope. PULMONARY: Denies shortness of breath, cough, sore throat. GASTROINTESTINAL: Denies nausea, vomiting, diarrhea, abdominal pain. : Denies dysuria, urgency, frequency. Extremities: Denies muscle/joint pain or swelling. NEUROLOGICAL: Denies headaches, weakness, and numbness. PHYSICAL EXAMINATION GENERAL: A&O x3, NAD. HEENT: EOMI, sclerae anicteric, moist mucous membranes. Neck: Supple, nontender, no JVD. CARDIOVASCULAR: S1-S2 present; no murmurs, rubs, or gallops. PULMONARY: Equal breath sounds bilaterally; no wheezing , + crackles. ABDOMEN: Soft, nontender, nondistended, normoactive bowel sounds; no guarding or rebound tenderness. MUSCULOSKELETAL: Normal ROM; intact peripheral pulses; no edema, cyanosis, or cl ubbing. Skin: Warm; no rash. DVT prophylaxis: subcutaneous Lovenox Assessment: Acute COPD exacerbation Acute hypoxic hypercapnic respiratory failure Acute on chronic diastolic CHF Acute respiratory acidosis: Contraction alkalosis secondary to diuresis: Hyperkalemia-resolved Hypercalcemia-resolved Acute kidney injury--improving Hypertension Pulmonary hypertension Chronic hypoxic respiratory failure; 2 L at baseline Chronic atrial fibrillation Hyperlipidemia History of obstructive sleep apnea; noncompliant with CPAP History of coronary artery disease status post cardiac catheterization; 2D echo done showed LVEF of 65 to 70%, mild to moderate increased left ventricular wall thickness, severe right ventricle dilatation with mild right ventricular hypokinesis, RVSP of 68 Moderate tricuspid regurgitation Plan: Monitor vital signs Monitor CBC Monitor CMP Continue telemetry monitoring Continue bronchopulmonary hygiene Continue with BiPAP as needed. Transition to nasal cannula as tolerated, goal to return to baseline home oxygen requirements. Strict I's and O's, daily weights Acetazolamide 250 mg twice daily Sensipar 30 mg once daily, discontinue upon discharge as per nephrology. Was on Zosyn, discontinued 07/08 Solu-Medrol every 8 hour. Nephrology following Pulmonology following ID following PT/OT consulted--expect subacute rehab Labs and medication were reviewed. Continue same treatment. Continue with symptomatic treatment. Resume home medication. Monitor labs and vitals. DVT and GI prophylaxis. Further recommendations as per clinical course of the patient. Objective - Vital Signs Vital signs: Vital Signs Temp 97.8 F 07/11/24 03:54 Pulse 88 07/11/24 03:54 Resp 18 07/11/24 03:54 BP 136/60 07/11/24 03:54 Pulse Ox 93 L 07/11/24 03:54 FiO2 35 07/11/24 00:00 Intake & Output 07/10/24 07/10/24 07/11/24 06:59 18:59 06:59 Intake Total 458 Output Total 1300 Balance -842 Weight 95 kg 87 kg Intake: Oral 458 Output: Urine 1300 Other: Voiding Method External Catheter External Catheter External Catheter # Voids 1 2 # Bowel Movements 1 1 - Labs CBC & Chem 7: 07/11/24 06:40 07/11/24 06:40 Labs: Abnormal Lab Results - Last 24 Hours (Table) 07/10/24 07/10/24 07/10/24 Range/Units 08:27 08:27 11:17 WBC 19.4 H (3.8-10.6) k/uL RBC 3.75 L (3.80-5.40) m/uL Sodium 135 L (137-145) mmol/L Chloride 96 L (98-107) mmol/L Carbon Dioxide 38 H (22-30) mmol/L BUN 31 H (7-17) mg/dL Creatinine 1.13 H (0.52-1.04) mg/dL POC Glucose (mg/dL) 134 H (70-110) mg/dL AST 37 H (14-36) U/L Total Protein 5.6 L (6.3-8.2) g/dL Albumin 3.2 L (3.5-5.0) g/dL 07/10/24 07/10/24 Range/Units 16:19 19:59 WBC (3.8-10.6) k/uL RBC (3.80-5.40) m/uL Sodium (137-145) mmol/L Chloride (98-107) mmol/L Carbon Dioxide (22-30) mmol/L BUN (7-17) mg/dL Creatinine (0.52-1.04) mg/dL POC Glucose (mg/dL) 145 H 148 H (70-110) mg/dL AST (14-36) U/L Total Protein (6.3-8.2) g/dL Albumin (3.5-5.0) g/dL
[2024-07-11 16:44] LABS: Glucose,Whole Blood 191 mg/dL (70-110)
[2024-07-11 20:17] LABS: Glucose,Whole Blood 193 mg/dL (70-110)
--- NOTE | 2024-07-11 21:16 | P.PN ---
Subjective Progress Note Date: 07/11/24 On today's evaluation of 07/10/2024, the patient is being seen for a follow-up. He is currently on 3 Suboxone by nasal cannula with a pulse ox of 93%. Most recent chest x-ray from 07/07/2024 showed resolving bibasilar atelectasis changes. The patient is calm and comfortable. Profoundly weak and debilitated. The white circles of 19.4 with a hemoglobin 1.7 and a platelet count of 230. BUN 31 with a creatinine 1.1 and a sodium level of 135. The patient is known to have advanced COPD and he has chronic hypoxic respiratory failure. He is also known to have obstructive sleep apnea. He is utilizing a BiPAP pressure of 16 over 6 cm of water with an FiO2 of 35% overnight and oxygen between 2 and 3 L/ min nasal cannula in the morning. The patient remains on Lasix 40 mg IV every 24 hours. Remains on DuoNeb nebulized treatments [id number]. No antibiotic coverage for now. He remains on Lovenox 40 mg subcu for DVT prophylaxis. Blood cultures from this current admission has been negative. He typically uses oxygen at 2 L nasal cannula on outpatient basis. Not compliant to home CPAP therapy. He is arousable and communicating. No new complaints otherwise for now. 07/11/2024, the patient is being seen for a follow-up. No new complaints. The BiPAP overnight and the patient is currently on oxygen at 3 L/min nasal cannula. Remains on the same respiratory medication regimen. The patient remains on DuoNeb, budesonide and Pulmicort nebulized treatments twice a day and the patient is also on IV Solu-Medrol 40 mg every 8 hours. Labs from today shows a white cell count of 20 with a hemoglobin of 12.1 and a platelet count of 195. BUN 35 with a creatinine 1.1 and the patient's renal function is improved and a sodium levels at 139 and serum bicarb is at 38. Remains on Lovenox for DVT prophylaxis. Remains on Lasix 40 mg IV every 24 hours. Remains on Diamox to 50 mg p.o. twice a day to counteract metabolic alkalosis. No other complaints. She is able to sit up in the chair. Overall condition is quite debilitated the patient remains quite weak. A follow-up chest x-ray was done and showed some ongoing issues with cardiomegaly. The patient also has some mild pulm vas congestion. Objective - Vital Signs Vital signs: Vital Signs Temp 98.0 F 07/11/24 08:26 Pulse 92 07/11/24 12:01 Resp 26 H 07/11/24 11:33 BP 142/73 07/11/24 11:33 Pulse Ox 92 L 07/11/24 11:33 FiO2 35 07/11/24 00:00 Intake & Output 07/10/24 07/11/24 07/11/24 18:59 06:59 18:59 Intake Total 458 220 Output Total 1300 Balance -842 220 Weight 95 kg 87 kg Intake: Oral 458 220 Output: Urine 1300 Other: Voiding Method External Catheter External Catheter External Catheter # Voids 1 2 # Bowel Movements 1 1 - Exam No acute distress, currently on BiPAP. No audible wheezing. HEENT examination is grossly unremarkable. Neck supple. Full range of motion. No adenopathy thyromegaly or neck vein distention. Cardiovascular examination reveals regular rhythm rate. S1-S2 normal. No S3 or S4. No discernible murmur noted. Heart sounds are distant. Lungs reveal scattered rhonchi. Mild expiratory wheezes. No crackles. Breath sounds equal. Abdomen soft bowel sounds. No masses or tenderness. Extremities are intact. No cyanosis or clubbing. Trace edema present. Skin is without rash or lesion. Neurologic examination is brief but nonfocal. - Labs CBC & Chem 7: 07/11/24 06:40 07/11/24 06:40 Labs: Abnormal Lab Results - Last 24 Hours (Table) 07/10/24 07/10/24 07/11/24 Range/Units 16:19 19:59 06:40 WBC 20.3 H (3.8-10.6) k/uL MCHC 30.9 L (31.0-37.0) g/dL Neutrophils # 18.4 H (1.3-7.7) k/uL Lymphocytes # 0.7 L (1.0-4.8) k/uL Chloride (98-107) mmol/L Carbon Dioxide (22-30) mmol/L BUN (7-17) mg/dL Creatinine (0.52-1.04) mg/dL POC Glucose (mg/dL) 145 H 148 H (70-110) mg/dL 07/11/24 07/11/24 Range/Units 06:40 11:29 WBC (3.8-10.6) k/uL MCHC (31.0-37.0) g/dL Neutrophils # (1.3-7.7) k/uL Lymphocytes # (1.0-4.8) k/uL Chloride 95 L (98-107) mmol/L Carbon Dioxide 38 H (22-30) mmol/L BUN 35 H (7-17) mg/dL Creatinine 1.10 H (0.52-1.04) mg/dL POC Glucose (mg/dL) 129 H (70-110) mg/dL Assessment and Plan Plan: Acute on chronic hypoxemic and hypercapnic respiratory failure, secondary to acute COPD exacerbation and extensive of right sided healthcare associated pneumonia. Clinically improved and the patient is currently on 3 liters of oxygen by nasal cannula, overall respiratory status is stable and the patient continues to be on bronchodilators and steroids and diuretics. Acute hypercapnic encephalopathy, currently stable. Utilizing BiPAP overnight. Right lung atelectasis, improved on subsequent chest x-rays specially 1 from today shows cardiomegaly and mild pulm vascular congestion. Severe chronic obstructive pulmonary disease Chronic hypoxemic respiratory failure, secondary to above, normally on 1.5 L/min nasal cannula while at home Chronic metabolic alkalosis, currently on Diamox Obstructive sleep apnea, reportedly noncompliant with home CPAP machine History of heart failure, with borderline mildly impaired left ventricular ejection fraction of 45 to 50% Pulmonary hypertension Chronic atrial fibrillation, anticoagulated with Eliquis Hyperlipidemia Hypertension Plan: Repeat chest x-ray in the morning was noted and the patient has cardiomegaly and mild pulmonary congestion and the patient remains on Lasix and Diamox Currently on oxygen at 2 L/min nasal cannula Overnight, the patient is on BiPAP, with settings of 16/6, and 35%. The patient is not receiving any IV fluids. Provide incentive spirometer the patient's procalcitonin level was 0.09. Culture data is negative. S Continue IV solu-Medrol 40 mg every 8 hours for another 24 hours Increase mobility and the patient should be able to transition on a recliner today with the help of physical therapy We will continue to follow the patient. Prognosis is guarded. She is a no code/DNR patient.
[2024-07-12 05:39] LABS: Glucose,Whole Blood 136 mg/dL (70-110)
[2024-07-12 11:29] LABS: Glucose,Whole Blood 131 mg/dL (70-110)
[2024-07-12] MEDS: busPIRone HCl 5 MG TAB PO SCH (11:51)
--- NOTE | 2024-07-12 12:02 | P.PN ---
Subjective Patient is seen for follow-up for acute kidney injury. Serum creatinine at 1.10. Maintained on BiPAP this morning. No significant complaints today. Maintained on IV Lasix 40 mg daily. Chest x-ray from 07/11/2024 continues to show coronary vascular congestion. Objective - Vital Signs Vital signs: Vital Signs Temp 98.3 F 07/12/24 10:55 Pulse 80 07/12/24 11:58 Resp 20 07/12/24 10:55 BP 124/73 07/12/24 10:55 Pulse Ox 96 07/12/24 10:55 FiO2 35 07/12/24 04:13 Intake & Output 07/11/24 07/12/24 07/12/24 18:59 06:59 18:59 Intake Total 574 540 180 Output Total 400 Balance 574 140 180 Weight 88.5 kg Intake: Oral 574 540 180 Output: Urine 400 Other: Voiding Method External Catheter Diaper Diaper Incontinent Incontinent # Bowel Movements 1 - Exam Patient is awake, comfortable, no acute distress, on BiPAP Examination of the heart S1 and S2 Examination of the lungs decreased breath sounds at the bases Abdomen is soft nontender Examination of lower extremities shows no significant edema. 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 Acute kidney injury secondary to hemodynamic ATN. Baseline creatinine 0.8 from April 2024 and peaked at 2.05 this admission -1.1. Nonoliguric. No hydronephrosis noted on kidney ultrasound. Left kidney atrophic. 2. Hyperkalemia secondary to acute kidney injury, losartan and potassium supplementation. Resolved. 3. Acute on chronic hypoxic and hypercapnic respiratory failure. Improved. Now on nasal cannula. 4. Pneumonia s/p antibiotics. 5. History of right upper lobe lobectomy. 6. Chronic diastolic CHF with moderate tricuspid regurgitation and severe pulmonary hypertension. 7. Hypernatremia from lack of oral water intake. Improved with D5W. 8. Hypercalcemia. Not on any calcium or vitamin D supplementation. Possibly volume contraction. PTH elevated at 130 concerning for primary hyperparathyroidism. Parathyroid nuclear scan was negative. PTH was likely elev ated secondary to acute kidney injury. Vitamin D 8.5. PJ level 17. 1,25 [place] level 34. [place] lambda light chain ratio not elevated. Started on Sensipar 9. Metabolic alkalosis secondary to volume contraction and partially compensatory for underlying respiratory acidosis. Maintained on Diamox. Plan: Continue Lasix Continue with Diamox Can discontinue Sensipar upon discharge. PTH was likely elevated from acute kidney injury. Parathyroid scan is negative for adenoma. Replace vitamin D now that calcium has improved.
[2024-07-12 14:49] LABS: Basophils # (A) 0.1 k/uL (0-0.2); Basophils % (A) 0 %; Eosinophils # (A) 0.1 k/uL (0-0.7); Eosinophils % (A) 0 %; HCT 38.2 % (34.0-46.0); HGB 11.8 gm/dL (11.4-16.0); Hypochromasia Marked; Lymphocytes # (A) 0.2 k/uL (1.0-4.8); Lymphocytes % (A) 1 %; MCH 30.5 pg (25.0-35.0); MCV 98.3 fL (80.0-100.0); Mean Platelet Volume 7.4; Monocytes # (A) 0.5 k/uL (0-1.0); Monocytes % (A) 3 %; Neutrophils # (A) 17.1 k/uL (1.3-7.7); Neutrophils % (A) 95 %; Platelet Count 228 k/uL (150-450); RBC 3.88 m/uL (3.80-5.40); RDW 13.4 % (11.5-15.5)
--- NOTE | 2024-07-12 15:07 | P.PN ---
Subjective Progress Note Date: 07/12/24 Patient is a pleasant 78-year-old female with past medical history of multiple medical problems as below. Patient presents because of altered mental status. Patient cannot provide information it was obtained from the family at bedside and records. As per and family patient was not using her BiPAP and she was sleeping most of the time yesterday around 22 hours, family got concerned and brought her to the hospital today. Patient is completely confused and cannot provide information and she has evidence of acute COPD exacerbations and she was admitted to the intensive care unit for this reason. No other information is available at now. On admission: Patient was mildly hypothermic 97.2, she is breathing fast at 30, tachycardic but blood pressure stable at 136/69. Labs reviewed showing WBC 21,000, rest of CBC is unremarkable Sodium 139, potassium 5.4. Creatinine is 1.1 pH is low 7.1, pCO2 is elevated at 98 and low pO2 at 80. Liver enzymes unremarkable Chest x-ray showing right lower lobe infiltrate. Patient is DNR and DNI and this confirmed with the family. Patient is going to be admitted to the ICU CT of brain: no acute process. Moderate to severe chronic small vessel ischemic disease. CT of chest: extensive consolidation and collapse pf the right mid and lower lung and fluid collection in RUL 07/02. Patient seen and examined. Currently on BiPAP. States she feels sligh tly better. Gets short of breath on minimal exertion. Labs done this morning showed WBC 13.3, hemoglobin 13, platelet count 296 sodium 143, potassium 6.1, BUN 50, creatinine 1.72. 07/03. Patient seen and examined. Patient currently on BiPAP, states she is doing slightly better. Currently alert and oriented to self and place. 2D echo done showed LVEF of 65 to 70%, mild to moderate increased left ventricular wall thickness, severe right ventricle dilatation with mild right ventricular hypok inesis, RVSP of 68, moderate tricuspid regurgitation. 07/04. Patient seen and examined. Currently on BiPAP. Continues to be lethargic. 07/05. Patient seen and examined. Patient is lethargic but arousable, answering questions. Continues to be on BiPAP.Blood work done this morning showed WBC 8.5, hemoglobin 10.4 sodium 141, potassium 4.1, BUN 40, creatinine 1.18. 07/06. Patient seen and examined. Continues to be on BiPAP. Blood work done this morning showed WBCs 6.8, hemoglobin 10.7, sodium 140, potassium 3.5, CO2 41, BUN 44, creatinine 1.09. Continues to be lethargic. 07/07. Patient was seen and examined today. Was on liter oxygen in the morning, required BiPAP overnight. WBCs 15.8, hemoglobin 11.4, platelets 236. Sodium is low 129, potassium 4.1, CO2 39, creatinine 1.37. Currently on Zosyn per pulmonary. Nephrology following. 07/08. Patient was seen and examined today. Patient was transferred out of ICU yesterday. Currently on BiPAP, FiO2 to 35%. Zosyn discontinued per infectious disease. On Solu-Medrol, decreased dose. Procalcitonin 0.09. WBCs 19.3 likely secondary to steroids, hemoglobin 11.5, platelet 208. CO2 39, creatinine 1.36. Blood cultures negative so far. 07/09. Patient was seen and examined today. She is seen sitting up in bed with BiPAP, awake and alert, no acute distress. She states that she is feeling well. Currently on BiPAP, FiO2 35%. WBCs 18.6 - likely secondary to steroids, hemoglobin 11.7, platelet 182. 07/10. Patient was seen and examined today. Required BiPAP overnight, currently on 3 L oxygen saturating 93%. Patient family at bedside, patient up in the chair, anticipate subacute rehab given patient appears debilitated and weak. Blood culture negative so far. WBCs 19.4, hemoglobin 11.7, platelet 213. BUN showed sodium 135, potassium 3.9, creatinine 1.13 trending down. BUN 31. Pulmonary following. Patient currently on IV Lasix to 24-hour for fluid overload. Also on acetazolamide due to contraction alkalosis. Also on inhalers/bronchodilator protocol. Patient at baseline uses 2 L oxygen. Noncompliant to CPAP therapy. PT/OT consulted. 07/11. Patient was seen and examined today. She is resting comfortably in bed. Required BiPAP overnight at 16/6 35%, currently on 2 L nasal cannula. WBCs 20 .3, hemoglobin 12.1, platelet 195, BUN 35, creatinine 1.1, sodium 139, potassium 3.5. On inhaler/bronchodilator protocol. Also on acetazolamide due to contraction alkalosis. 07/12. Patient was seen and examined today. She is resting comfortably in bed. Currently on 2 L nasal cannula. WBCs 18, downtrending. On inhaler/bronchodilator protocol. Also on acetazolamide due to contraction alkalosis. PT/OT consulted. REVIEW OF SYSTEMS CONSTITUTIONAL: Denies fever or chills. CARDIOVASCULAR: Denies chest pain, palpitations or syncope. PULMONARY: Denies shortness of breath, cough, sore throat. GASTROINTESTINAL: Denies nausea, vomiting, diarrhea, abdominal pain. : Denies dysuria, urgency, frequency. Extremities: Denies muscle/joint pain or swelling. NEUROLOGICAL: Denies headaches, weakness, and numbness. PHYSICAL EXAMINATION GENERAL: A&O x3, NAD. HEENT: EOMI, sclerae anicteric, moist mucous membranes. Neck: Supple, nontender, no JVD. CARDIOVASCULAR: S1-S2 present; no murmurs, rubs, or gallops. PULMONARY: Equal breath sounds bilaterally; no wheezing , + crackles. ABDOMEN: Soft, nontender, nondistended, normoactive bowel sounds; no guarding or rebound tenderness. MUSCULOSKELETAL: Normal ROM; intact peripheral pulses; no edema, cyanosis, or clubbing. Skin: Warm; no rash. DVT prophylaxis: subcutaneous Lovenox Assessment: Acute COPD exacerbation Acute hypoxic hypercapnic respiratory failure Acute on chronic diastolic CHF Acute respiratory acidosis: Contraction alkalosis secondary to diuresis Hyperkalemia-resolved Hypercalcemia-resolved Acute kidney injury - improving Hypertension Pulmonary hypertension Chronic hypoxic respiratory failure; 2 L at baseline Chronic atrial fibrillation Hyperlipidemia History of obstructive sleep apnea; noncompliant with CPAP History of coronary artery disease status post cardiac catheterization; 2D echo done showed LVEF of 65 to 70%, mild to moderate increased left ventricular wall thickness, severe right ventricle dilatation with mild right ventricular hypokinesis, RVSP of 68 Moderate tricuspid regurgitation Plan: Monitor vital signs Monitor CBC Monitor CMP Continue telemetry monitoring Continue bronchopulmonary hygiene Continue with BiPAP as needed. Transition to nasal cannula as tolerated, goal to return to baseline home oxygen requirements. Strict I's and O's, daily weights Acetazolamide 250 mg twice daily Sensipar 30 mg once daily, discontinue upon discharge as per nephrology. Was on Zosyn, discontinued 07/08 Discontinue Solu-Medrol Nephrology following Pulmonary following ID following PT/OT consulted - expect subacute rehab Labs and medication were reviewed. Continue same treatment. Continue with symptomatic treatment. Resume home medication. Monitor labs and vitals. DVT and GI prophylaxis. Further recommendations as per clinical course of the patient. Objective - Vital Signs Vital signs: Vital Signs Temp 97.5 F L 07/12/24 04:13 Pulse 73 07/12/24 04:13 Resp 20 07/12/24 04:13 BP 147/68 07/12/24 04:13 Pulse Ox 93 L 07/12/24 04:13 FiO2 35 07/12/24 04:13 Intake & Output 07/11/24 07/12/24 07/12/24 18:59 06:59 18:59 Intake Total 574 540 Output Total 400 Balance 574 140 Weight 88.5 kg Intake: Oral 574 540 Output: Urine 400 Other: Voiding Method External Catheter Diaper Incontinent # Bowel Movements 1 - Labs CBC & Chem 7: 07/12/24 14:19 07/11/24 06:40 Labs: Abnormal Lab Results - Last 24 Hours (Table) 07/11/24 07/11/24 07/11/24 Range/Units 06:40 11:29 16:43 Chloride 95 L (98-107) mmol/L Carbon Dioxide 38 H (22-30) mmol/L BUN 35 H (7-17) mg/dL Creatinine 1.10 H (0.52-1.04) mg/dL POC Glucose (mg/dL) 129 H 191 H (70-110) mg/dL 07/11/24 07/12/24 Range/Units 20:16 05:34 Chloride (98-107) mmol/L Carbon Dioxide (22-30) mmol/L BUN (7-17) mg/dL Creatinine (0.52-1.04) mg/dL POC Glucose (mg/dL) 193 H 136 H (70-110) mg/dL
--- NOTE | 2024-07-12 15:08 | P.PN ---
Subjective Progress Note Date: 07/11/24 Principal diagnosis: Reason for follow-up is pneumonia Patient is a 78-year female with a past medical history significant for hypertension COPD atrial fibrillation, obstructive sleep apnea and recent admission to the hospital April 2024 for COPD exacerbation patient has been brought into the ER by EMS as the patient was noticed to be lethargic and sleepy at home patient was noted to be short of breath, patient did have a CT with evidence of extensive consolidation concerning for pneumonia. On today's evaluation that is 07/11/2024, patient has been afebrile, patient is breathing comfortably and is currently on 2 L current oxygen, patient denies having any significant cough no chest pain shortness of breath, patient denies nausea vomiting or diarrhea and no abdominal pain Patient white count is 20.3, creatinine is 1.10 Objective - Vital Signs Vital signs: Vital Signs Temp 98.0 F 07/11/24 08:26 Pulse 92 07/11/24 12:01 Resp 26 H 07/11/24 11:33 BP 142/73 07/11/24 11:33 Pulse Ox 92 L 07/11/24 11:33 FiO2 35 07/11/24 00:00 Intake & Output 07/10/24 07/11/24 07/11/24 18:59 06:59 18:59 Intake Total 458 220 Output Total 1300 Balance -842 220 Weight 95 kg 87 kg Intake: Oral 458 220 Output: Urine 1300 Other: Voiding Method External Catheter External Catheter External Catheter # Voids 1 2 # Bowel Movements 1 1 - Exam GENERAL DESCRIPTION: An elderly female lying in bed in no distress RESPIRATORY SYSTEM: Unlabored breathing , decreased breath sounds at bases HEART: S1 S2 regular rate and rhythm , ABDOMEN: Soft , no tenderness EXTREMITIES: No edema feet - Labs CBC & Chem 7: 07/12/24 14:19 07/11/24 06:40 Labs: Abnormal Lab Results - Last 24 Hours (Table) 07/10/24 07/10/24 07/11/24 Range/Units 16:19 19:59 06:40 WBC 20.3 H (3.8-10.6) k/uL MCHC 30.9 L (31.0-37.0) g/dL Neutrophils # 18.4 H (1.3-7.7) k/uL Lymphocytes # 0.7 L (1.0-4.8) k/uL Chloride (98-107) mmol/L Carbon Dioxide (22-30) mmol/L BUN (7-17) mg/dL Creatinine (0.52-1.04) mg/dL POC Glucose (mg/dL) 145 H 148 H (70-110) mg/dL 07/11/24 07/11/24 Range/Units 06:40 11:29 WBC (3.8-10.6) k/uL MCHC (31.0-37.0) g/dL Neutrophils # (1.3-7.7) k/uL Lymphocytes # (1.0-4.8) k/uL Chloride 95 L (98-107) mmol/L Carbon Dioxide 38 H (22-30) mmol/L BUN 35 H (7-17) mg/dL Creatinine 1.10 H (0.52-1.04) mg/dL POC Glucose (mg/dL) 129 H (70-110) mg/dL Assessment and Plan (1) Pneumonia Current Visit: Yes Status: Acute Code(s): J18.9 - PNEUMONIA, UNSPECIFIED ORGANISM SNOMED Code(s): 985667707 (2) Sepsis Current Visit: Yes Status: Acute Code(s): A41.9 - SEPSIS, UNSPECIFIED ORGANISM SNOMED Code(s): 33581572 (3) Leukocytosis Current Visit: No Status: Acute Code(s): D72.829 - ELEVATED WHITE BLOOD CELL COUNT, UNSPECIFIED SNOMED Code(s): 812412607 Plan: 1patient presented to hospital with sepsis in this patient who did have elevated white count tachycardia source is likely pneumonia with evidence of right-sided consolidation question of aspiration/gram-negative as the patient has been in and out of the hospital, gram-positive infection not entirely excluded 2-patient blood cultures has been negative, sputum has not been collected did have elevated procalcitonin on admission 3patient leukocytosis more likely steroid related, did have a normal CRP we will continue monitor the patient closely off antibiotics Dictation was produced using [employer] dictation software. please excuse any grammatical, word or spelling errors. Time with Patient: Less than 30
--- NOTE | 2024-07-12 15:10 | P.PN ---
Subjective Progress Note Date: 07/12/24 Principal diagnosis: Reason for follow-up is pneumonia Patient is a 78-year female with a past medical history significant for hypertension COPD atrial fibrillation, obstructive sleep apnea and recent admission to the hospital April 2024 for COPD exacerbation patient has been brought into the ER by EMS as the patient was noticed to be lethargic and sleepy at home patient was noted to be short of breath, patient did have a CT with evidence of extensive consolidation concerning for pneumonia. On today's evaluation that is 07/12/2024, Patient is afebrile this morning patient denies having any chest pain or any cough, the patient is breathing comfortably and currently on 2 L nasal cannula oxygen, patient denies any abdominal pain no diarrhea no nausea no vomiting. Patient white count is down to 18.0, procalcitonin is normal Objective - Vital Signs Vital signs: Vital Signs Temp 98.3 F 07/12/24 10:55 Pulse 80 07/12/24 11:58 Resp 20 07/12/24 10:55 BP 124/73 07/12/24 10:55 Pulse Ox 96 07/12/24 10:55 FiO2 35 07/12/24 04:13 Intake & Output 07/11/24 07/12/24 07/12/24 18:59 06:59 18:59 Intake Total 574 540 360 Output Total 400 Balance 574 140 360 Weight 88.5 kg Intake: Oral 574 540 360 Output: Urine 400 Other: Voiding Method External Catheter Diaper Diaper Incontinent Incontinent # Bowel Movements 1 - Exam GENERAL DESCRIPTION: An elderly female lying in bed in no distress RESPIRATORY SYSTEM: Unlabored breathing , decreased breath sounds at bases HEART: S1 S2 regular rate and rhythm , ABDOMEN: Soft , no tenderness EXTREMITIES: No edema feet - Labs CBC & Chem 7: 07/12/24 14:19 07/11/24 06:40 Labs: Abnormal Lab Results - Last 24 Hours (Table) 07/11/24 07/11/24 07/12/24 Range/Units 16:43 20:16 05:34 WBC (3.8-10.6) k/uL Neutrophils # (1.3-7.7) k/uL Lymphocytes # (1.0-4.8) k/uL POC Glucose (mg/dL) 191 H 193 H 136 H (70-110) mg/dL 07/12/24 07/12/24 Range/Units 11:27 14:19 WBC 18.0 H (3.8-10.6) k/uL Neutrophils # 17.1 H (1.3-7.7) k/uL Lymphocytes # 0.2 L (1.0-4.8) k/uL POC Glucose (mg/dL) 131 H (70-110) mg/dL Assessment and Plan (1) Pneumonia Current Visit: Yes Status: Acute Code(s): J18.9 - PNEUMONIA, UNSPECIFIED ORGANISM SNOMED Code(s): 559163892 (2) Sepsis Current Visit: Yes Status: Acute Code(s): A41.9 - SEPSIS, UNSPECIFIED ORGANISM SNOMED Code(s): 04363115 (3) Leukocytosis Current Visit: No Status: Acute Code(s): D72.829 - ELEVATED WHITE BLOOD CELL COUNT, UNSPECIFIED SNOMED Code(s): 002920219 Plan: 1patient presented to hospital with sepsis in this patient who did have elevated white count tachycardia source is likely pneumonia with evidence of right-sided consolidation question of aspiration/gram-negative as the patient has been in and out of the hospital, gram-positive infection not entirely excluded patient has received adequate antibiotic therapy for underlying pneumonia and Zosyn was discontinued 2-patient blood cultures has been negative, sputum has not been collected 3patient leukocytosis more likely steroid related, did have a normal CRP as well as procalcitonin and the patient will monitor closely off antibiotic therapy Dictation was produced using [employer] dictation software. please excuse any grammatical, word or spelling errors. Time with Patient: Less than 30
--- NOTE | 2024-07-12 15:11 | P.PN ---
Subjective Progress Note Date: 07/12/24 On today's evaluation of 07/10/2024, the patient is being seen for a follow-up. He is currently on 3 Suboxone by nasal cannula with a pulse ox of 93%. Most recent chest x-ray from 07/07/2024 showed resolving bibasilar atelectasis changes. The patient is calm and comfortable. Profoundly weak and debilitated. The white circles of 19.4 with a hemoglobin 1.7 and a platelet count of 230. BUN 31 with a creatinine 1.1 and a sodium level of 135. The patient is known to have advanced COPD and he has chronic hypoxic respiratory failure. He is also known to have obstructive sleep apnea. He is utilizing a BiPAP pressure of 16 over 6 cm of water with an FiO2 of 35% overnight and oxygen between 2 and 3 L/ min nasal cannula in the morning. The patient remains on Lasix 40 mg IV every 24 hours. Remains on DuoNeb nebulized treatments [id number]. No antibiotic coverage for now. He remains on Lovenox 40 mg subcu for DVT prophylaxis. Blood cultures from this current admission has been negative. He typically uses oxygen at 2 L nasal cannula on outpatient basis. Not compliant to home CPAP therapy. He is arousable and communicating. No new complaints otherwise for now. 07/11/2024, the patient is being seen for a follow-up. No new complaints.The BiPAP overnight and the patient is currently on oxygen at 3 L/min nasal cannula. Remains on the same respiratory medication regimen. The patient remains on DuoNeb, budesonide and Pulmicort nebulized treatments twice a day and the patient is also on IV Solu-Medrol 40 mg every 8 hours. Labs from today shows a white cell count of 20 with a hemoglobin of 12.1 and a platelet count of 195. BUN 35 with a creatinine 1.1 and the patient's renal function is improved and a sodium levels at 139 and serum bicarb is at 38. Remains on Lovenox for DVT prophylaxis. Remains on Lasix 40 mg IV every 24 hours. Remains on Diamox to 50 mg p.o. twice a day to counteract metabolic alkalosis. No other complaints. She is able to sit up in the chair. Overall condition is quite debilitated the patient remains quite weak. A follow-up chest x-ray was done and showed some ongoing issues with cardiomegaly. The patient also has some mild pulm vas conge stion. On 07/12/2024, the patient for a follow-up. Patient is calm and comfortable. Has no specific complaints. Tolerating the BiPAP overnight. No chest pain. No shortness of breath. She is still on IV Solu-Medrol and this is going to be transition to prednisone burst taper. The patient remains on DuoNeb treatments [id number]. Patient remains on performance of Pulmicort updrafts. WBC count is 18 with a hemoglobin of 0.8 and a platelet count of 228. No chest pain. No angina. No palpitations. Procalcitonin level is normal. Patient remains on Diamox to 50 mg p.o. daily. The patient is also on Lovenox for DVT prophylaxis 40 mg SQ daily and Lasix 40 mg IV every 12 hours. Objective - Vital Signs Vital signs: Vital Signs Temp 98.2 F 07/12/24 08:24 Pulse 88 07/12/24 08:25 Resp 20 07/12/24 08:24 BP 119/73 07/12/24 08:24 Pulse Ox 98 07/12/24 08:24 FiO2 35 07/12/24 04:13 Intake & Output 07/11/24 07/12/24 07/12/24 18:59 06:59 18:59 Intake Total 574 540 Output Total 400 Balance 574 140 Weight 88.5 kg Intake: Oral 574 540 Output: Urine 400 Other: Voiding Method External Catheter Diaper Diaper Incontinent Incontinent # Bowel Movements 1 - Exam No acute distress, currently on BiPAP. No audible wheezing. HEENT examination is grossly unremarkable. Neck supple. Full range of motion. No adenopathy thyromegaly or neck vein distention. Cardiovascular examination reveals regular rhythm rate. S1-S2 normal. No S3 or S4. No discernible murmur noted. Heart sounds are distant. Lungs reveal scattered rhonchi. Mild expiratory wheezes. No crackles. Breath sounds equal. Abdomen soft bowel sounds. No masses or tenderness. Extremities are intact. No cyanosis or clubbing. Trace edema present. Skin is without rash or lesion. Neurologic examination is brief but nonfocal. - Labs CBC & Chem 7: 07/12/24 14:19 07/11/24 06:40 Labs: Abnormal Lab Results - Last 24 Hours (Table) 07/11/24 07/11/24 07/11/24 Range/Units 11:29 16:43 20:16 POC Glucose (mg/dL) 129 H 191 H 193 H (70-110) mg/dL 07/12/24 Range/Units 05:34 POC Glucose (mg/dL) 136 H (70-110) mg/dL Assessment and Plan Plan: Acute on chronic hypoxemic and hypercapnic respiratory failure, secondary to acute COPD exacerbation and extensive of right sided healthcare associated pneumonia. Clinically improved and the patient is currently on 3 liters of oxygen by nasal cannula, overall respiratory status is stable and the patient continues to be on bronchodilators and steroids and diuretics. Acute hypercapnic encephalopathy, currently stable. Utilizing BiPAP overnight. Right lung atelectasis, improved on subsequent chest x-rays specially 1 from today shows cardiomegaly and mild pulm vascular congestion. Severe chronic obstructive pulmonary disease Chronic hypoxemic respiratory failure, secondary to above, normally on 1.5 L/min nasal cannula while at home Chronic metabolic alkalosis, currently on Diamox Obstructive sleep apnea, reportedly noncompliant with home CPAP machine History of heart failure, with borderline mildly impaired left ventricular ejection fraction of 45 to 50% Pulmonary hypertension Chronic atrial fibrillation, anticoagulated with Eliquis Hyperlipidemia Hypertension Plan: Medically stable and the patient's overall condition is unchanged Keep the patient on diuretics and the patient is on Lasix and Diamox Currently on oxygen at 2 L/min nasal cannula Overnight, the patient is on BiPAP, with settings of 16/6, and 35%. The patient is not receiving any IV fluids. Provide incentive spirometer the patient's procalcitonin level was 0.09. White cell count remains slight elevated at 18 Patient was started on a prednisone burst taper Increase mobility and the patient should be able to transition on a recliner today with the help of physical therapy We will continue to follow the patient. Prognosis is guarded. She is a no code/DNR patient.
[2024-07-12 16:46] LABS: Glucose,Whole Blood 143 mg/dL (70-110)
[2024-07-12 19:43] LABS: Glucose,Whole Blood 102 mg/dL (70-110)
[2024-07-12] MEDS: FUROSEMIDE 10 MG/ML 4 ML VIAL IV SCH (21:09)
[2024-07-13 05:34] LABS: Glucose,Whole Blood 76 mg/dL (70-110)
[2024-07-13 07:00] LABS: Basophils % (A) 0 %; Eosinophils # (A) 0.1 k/uL (0-0.7); Eosinophils % (A) 0 %; HCT 37.8 % (34.0-46.0); HGB 11.5 gm/dL (11.4-16.0); Hypochromasia Marked; Lymphocytes # (A) 1.2 k/uL (1.0-4.8); Lymphocytes % (A) 7 %; MCH 30.2 pg (25.0-35.0); MCHC 30.5 g/dL (31.0-37.0); MCV 99.1 fL (80.0-100.0); Mean Platelet Volume 7.4; Monocytes # (A) 0.8 k/uL (0-1.0); Monocytes % (A) 5 %; Neutrophils # (A) 14.9 k/uL (1.3-7.7); Neutrophils % (A) 87 %; Platelet Count 265 k/uL (150-450); RBC 3.82 m/uL (3.80-5.40); RDW 13.6 % (11.5-15.5); WBC 17.1 k/uL (3.8-10.6)
[2024-07-13 07:17] LABS: ALT 50 U/L (4-34); AST 32 U/L (14-36); African American GFR (CKD) 48 (>60 ml/min/1.73 sqM); Albumin 3.2 g/dL (3.5-5.0); Alkaline Phosphatase 79 U/L (38-126); Blood Urea Nitrogen 35 mg/dL (7-17); Calcium 9.1 mg/dL (8.4-10.2); Chloride 90 mmol/L (98-107); Glucose 86 mg/dL (74-99); Non-African American GFR(CKD) 41 (>60 ml/min/1.73 sqM); Potassium 3.1 mmol/L (3.5-5.1); Sodium 138 mmol/L (137-145); Total Bilirubin 0.9 mg/dL (0.2-1.3); Total Protein 5.5 g/dL (6.3-8.2)
[2024-07-13 07:26] LABS: Anion Gap 3 mmol/L
[2024-07-13 07:33] LABS: Carbon Dioxide 45 mmol/L (22-30)
[2024-07-13] MEDS ORDERED: Potassium Replacement Protocol 1 EACH MISC MISCELLANE PRN (07:43)
[2024-07-13] MEDS: predniSONE 20 MG TAB PO SCH (08:37)
[2024-07-13] MEDS: POTASSIUM CHLORIDE ER 20 MEQ TAB.ER PO SCH (08:37)
[2024-07-13] MEDS: POTASSIUM CHLORIDE ER 20 MEQ TAB.ER PO STA (11:06)
--- NOTE | 2024-07-13 11:15 | P.PN ---
Subjective Progress Note Date: 07/13/24 Patient is a pleasant 78-year-old female with past medical history of multiple medical problems as below. Patient presents because of altered mental status. Patient cannot provide information it was obtained from the family at bedside and records. As per and family patient was not using her BiPAP and she was sleeping most of the time yesterday around 22 hours, family got concerned and brought her to the hospital today. Patient is completely confused and cannot provide information and she has evidence of acute COPD exacerbations and she was admitted to the intensive care unit for this reason. No other information is available at now. On admission: Patient was mildly hypothermic 97.2, she is breathing fast at 30, tachycardic but blood pressure stable at 136/69. Labs reviewed showing WBC 21,000, rest of CBC is unremarkable Sodium 139, potassium 5.4. Creatinine is 1.1 pH is low 7.1, pCO2 is elevated at 98 and low pO2 at 80. Liver enzymes unremarkable Chest x-ray showing right lower lobe infiltrate. Patient is DNR and DNI and this confirmed with the family. Patient is going to be admitted to the ICU CT of brain: no acute process. Moderate to severe chronic small vessel ischemic disease. CT of chest: extensive consolidation and collapse pf the right mid and lower lung and fluid collection in RUL 07/02. Patient seen and examined. Currently on BiPAP. States she feels sligh tly better. Gets short of breath on minimal exertion. Labs done this morning showed WBC 13.3, hemoglobin 13, platelet count 296 sodium 143, potassium 6.1, BUN 50, creatinine 1.72. 07/03. Patient seen and examined. Patient currently on BiPAP, states she is doing slightly better. Currently alert and oriented to self and place. 2D echo done showed LVEF of 65 to 70%, mild to moderate increased left ventricular wall thickness, severe right ventricle dilatation with mild right ventricular hypok inesis, RVSP of 68, moderate tricuspid regurgitation. 07/04. Patient seen and examined. Currently on BiPAP. Continues to be lethargic. 07/05. Patient seen and examined. Patient is lethargic but arousable, answering questions. Continues to be on BiPAP.Blood work done this morning showed WBC 8.5, hemoglobin 10.4 sodium 141, potassium 4.1, BUN 40, creatinine 1.18. 07/06. Patient seen and examined. Continues to be on BiPAP. Blood work done this morning showed WBCs 6.8, hemoglobin 10.7, sodium 140, potassium 3.5, CO2 41, BUN 44, creatinine 1.09. Continues to be lethargic. 07/07. Patient was seen and examined today. Was on liter oxygen in the morning, required BiPAP overnight. WBCs 15.8, hemoglobin 11.4, platelets 236. Sodium is low 129, potassium 4.1, CO2 39, creatinine 1.37. Currently on Zosyn per pulmonary. Nephrology following. 07/08. Patient was seen and examined today. Patient was transferred out of ICU yesterday. Currently on BiPAP, FiO2 to 35%. Zosyn discontinued per infectious disease. On Solu-Medrol, decreased dose. Procalcitonin 0.09. WBCs 19.3 likely secondary to steroids, hemoglobin 11.5, platelet 208. CO2 39, creatinine 1.36. Blood cultures negative so far. 07/09. Patient was seen and examined today. She is seen sitting up in bed with BiPAP, awake and alert, no acute distress. She states that she is feeling well. Currently on BiPAP, FiO2 35%. WBCs 18.6 - likely secondary to steroids, hemoglobin 11.7, platelet 182. 07/10. Patient was seen and examined today. Required BiPAP overnight, currently on 3 L oxygen saturating 93%. Patient family at bedside, patient up in the chair, anticipate subacute rehab given patient appears debilitated and weak. Blood culture negative so far. WBCs 19.4, hemoglobin 11.7, platelet 213. BUN showed sodium 135, potassium 3.9, creatinine 1.13 trending down. BUN 31. Pulmonary following. Patient currently on IV Lasix to 24-hour for fluid overload. Also on acetazolamide due to contraction alkalosis. Also on inhalers/bronchodilator protocol. Patient at baseline uses 2 L oxygen. Noncompliant to CPAP therapy. PT/OT consulted. 07/11. Patient was seen and examined today. She is resting comfortably in bed. Required BiPAP overnight at 16/6 35%, currently on 2 L nasal cannula. WBCs 20 .3, hemoglobin 12.1, platelet 195, BUN 35, creatinine 1.1, sodium 139, potassium 3.5. On inhaler/bronchodilator protocol. Also on acetazolamide due to contraction alkalosis. 07/12. Patient was seen and examined today. She is resting comfortably in bed. Currently on 2 L nasal cannula. WBCs 18, downtrending. On inhaler/bronchodilator protocol. Also on acetazolamide due to contraction alkalosis. PT/OT consulted. 07/13. Patient was seen and examined today. Resting comfortably in bed on 2 L nasal cannula. WBC 17.1, hemoglobin 11.5, platelet 265, sodium 138, potassium 3.1, chloride 90, CO2 45, BUN 35, creatinine 1.24. Maintained on acetazolamide due to contraction alkalosis. REVIEW OF SYSTEMS CONSTITUTIONAL: Denies fever or chills. CARDIOVASCULAR: Denies chest pain, palpitations or syncope. PULMONARY: Denies shortness of breath, cough, sore throat. GASTROINTESTINAL: Denies nausea, vomiting, diarrhea, abdominal pain. : Denies dysuria, urgency, frequency. Extremities: Denies muscle/joint pain or swelling. NEUROLOGICAL: Denies headaches, weakness, and numbness. PHYSICAL EXAMINATION GENERAL: A&O x3, NAD. HEENT: EOMI, sclerae anicteric, moist mucous membranes. Neck: Supple, nontender, no JVD. CARDIOVASCULAR: S1-S2 present; no murmurs, rubs, or gallops. PULMONARY: Equal breath sounds bilaterally; no wheezing , + crackles. ABDOMEN: Soft, nontender, nondistended, normoactive bowel sounds; no guarding or rebound tenderness. MUSCULOSKELETAL: Normal ROM; intact peripheral pulses; no edema, cyanosis, or clubbing. Skin: Warm; no rash. DVT prophylaxis: subcutaneous Lovenox Assessment: Acute COPD exacerbation Acute hypoxic hypercapnic respiratory failure Acute on chronic diastolic CHF Acute respiratory acidosis Contraction alkalosis secondary to diuresis Hypochloremia due to contraction alkalosis Hypokalemia Acute kidney injury - improving Hypertension Pulmonary hypertension Chronic hypoxic respiratory failure; 2 L nasal cannula at baseline Chronic atrial fibrillation Hyperlipidemia History of obstructive sleep apnea; noncompliant with CPAP History of coronary artery disease status post cardiac catheterization; 2D echo done showed LVEF of 65 to 70%, mild to moderate increased left ventricular wall thickness, severe right ventricle dilatation with mild right ventricular hypokinesis, RVSP of 68 Moderate tricuspid regurgitation Plan: Monitor vital signs Monitor CBC Monitor CMP Continue telemetry monitoring Continue bronchopulmonary hygiene Continue with BiPAP as needed. Transition to nasal cannula as tolerated, goal to return to baseline home oxygen requirements. Strict I's and O's, daily weights Replete potassium Acetazolamide 250 mg twice daily Lasix 40 mg daily Sensipar 30 mg once daily, discontinue upon discharge as per nephrology Nephrology following Pulmonary following ID following PT/OT consulted - expect subacute rehab Labs and medication were reviewed. Continue same treatment. Continue with symptomatic treatment. Resume home medication. Monitor labs and vitals. DVT and GI prophylaxis. Further recommendations as per clinical course of the patient. Objective - Vital Signs Vital signs: Vital Signs Temp 97.9 F 07/13/24 04:00 Pulse 79 07/13/24 04:00 Resp 16 07/13/24 04:00 BP 127/60 07/13/24 04:00 Pulse Ox 93 L 07/13/24 04:00 FiO2 35 07/13/24 04:00 Intake & Output 07/12/24 07/13/24 07/13/24 18:59 06:59 18:59 Intake Total 540 Output Total 900 Balance -360 Weight 90.49 kg Intake: Oral 540 Output: Urine 900 Other: Voiding Method Diaper Diaper Incontinent Incontinent External Catheter # Bowel Movements 0 1 - Labs CBC & Chem 7: 07/13/24 06:19 07/13/24 06:19 Labs: Abnormal Lab Results - Last 24 Hours (Table) 07/12/24 07/12/24 07/12/24 Range/Units 11:27 14:19 16:44 WBC 18.0 H (3.8-10.6) k/uL MCHC (31.0-37.0) g/dL Neutrophils # 17.1 H (1.3-7.7) k/uL Lymphocytes # 0.2 L (1.0-4.8) k/uL Potassium (3.5-5.1) mmol/L Chloride (98-107) mmol/L Carbon Dioxide (22-30) mmol/L BUN (7-17) mg/dL Creatinine (0.52-1.04) mg/dL POC Glucose (mg/dL) 131 H 143 H (70-110) mg/dL ALT (4-34) U/L Total Protein (6.3-8.2) g/dL Albumin (3.5-5.0) g/dL 07/13/24 07/13/24 Range/Units 06:19 06:19 WBC 17.1 H (3.8-10.6) k/uL MCHC 30.5 L (31.0-37.0) g/dL Neutrophils # 14.9 H (1.3-7.7) k/uL Lymphocytes # (1.0-4.8) k/uL Potassium 3.1 L (3.5-5.1) mmol/L Chloride 90 L (98-107) mmol/L Carbon Dioxide 45 H* (22-30) mmol/L BUN 35 H (7-17) mg/dL Creatinine 1.24 H (0.52-1.04) mg/dL POC Glucose (mg/dL) (70-110) mg/dL ALT 50 H (4-34) U/L Total Protein 5.5 L (6.3-8.2) g/dL Albumin 3.2 L (3.5-5.0) g/dL
[2024-07-13 11:31] LABS: Glucose,Whole Blood 124 mg/dL (70-110)
[2024-07-13] MEDS ORDERED: POTASSIUM CHLORIDE ER 20 MEQ TAB.ER PO SCH (12:00)
--- NOTE | 2024-07-13 13:34 | P.PN ---
Subjective Patient is seen for follow-up for acute kidney injury. Serum creatinine at 1.2 Lasix was increased to twice a day yesterday. No significant complaints today. Chest x-ray from 07/11/2024 continues to show pulmonary vascular congestion. Objective - Vital Signs Vital signs: Vital Signs Temp 98 F 07/13/24 08:00 Pulse 88 07/13/24 11:45 Resp 18 07/13/24 11:33 BP 120/56 07/13/24 11:33 Pulse Ox 95 07/13/24 11:33 FiO2 35 07/13/24 04:00 Intake & Output 07/12/24 07/13/24 07/13/24 18:59 06:59 18:59 Intake Total 540 358 Output Total 900 Balance -360 358 Weight 90.49 kg Intake: Oral 540 358 Output: Urine 900 Other: Voiding Method Diaper Diaper Diaper Incontinent Incontinent Incontinent External Catheter # Bowel Movements 0 3 - Exam Patient is awake, comfortable, no acute distress, on BiPAP Examination of the heart S1 and S2 Examination of the lungs decreased breath sounds at the bases Abdomen is soft nontender Examination of lower extremities shows no significant edema. LAW PROFESSOR exam grossly intact - Labs CBC & Chem 7: 07/13/24 06:19 07/13/24 06:19 Labs: Abnormal Lab Results - Last 24 Hours (Table) 07/12/24 07/12/24 07/13/24 Range/Units 14:19 16:44 06:19 WBC 18.0 H 17.1 H (3.8-10.6) k/uL MCHC 30.5 L (31.0-37.0) g/dL Neutrophils # 17.1 H 14.9 H (1.3-7.7) k/uL Lymphocytes # 0.2 L (1.0-4.8) k/uL Potassium (3.5-5.1) mmol/L Chloride (98-107) mmol/L Carbon Dioxide (22-30) mmol/L BUN (7-17) mg/dL Creatinine (0.52-1.04) mg/dL POC Glucose (mg/dL) 143 H (70-110) mg/dL ALT (4-34) U/L Total Protein (6.3-8.2) g/dL Albumin (3.5-5.0) g/dL 07/13/24 07/13/24 Range/Units 06:19 11:27 WBC (3.8-10.6) k/uL MCHC (31.0-37.0) g/dL Neutrophils # (1.3-7.7) k/uL Lymphocytes # (1.0-4.8) k/uL Potassium 3.1 L (3.5-5.1) mmol/L Chloride 90 L (98-107) mmol/L Carbon Dioxide 45 H* (22-30) mmol/L BUN 35 H (7-17) mg/dL Creatinine 1.24 H (0.52-1.04) mg/dL POC Glucose (mg/dL) 124 H (70-110) mg/dL ALT 50 H (4-34) U/L Total Protein 5.5 L (6.3-8.2) g/dL Albumin 3.2 L (3.5-5.0) g/dL Assessment and Plan Assessment: . Acute kidney injury secondary to hemodynamic ATN. Baseline creatinine 0.8 from April 2024 and peaked at 2.05 this admission -1.1. Nonoliguric. No hydronephrosis noted on kidney ultrasound. Left kidney atrophic. 2. Hyperkalemia secondary to acute kidney injury, losartan and potassium supplementation. Resolved. 3. Acute on chronic hypoxic and hypercapnic respiratory failure. Improved. Now on nasal cannula. 4. Pneumonia s/p antibiotics. 5. History of right upper lobe lobectomy. 6. Chronic diastolic CHF with moderate tricuspid regurgitation and severe pulmonary hypertension. 7. Hypernatremia from lack of oral water intake. Improved with D5W. 8. Hypercalcemia. Not on any calcium or vitamin D supplementation. Possibly volume contraction. PTH elevated at 130 concerning for primary hyperparathyroidism. Parathyroid nuclear scan was negative. PTH was likely elevated secondary to acute kidney injury. Vitamin D 8.5. PJ level 17. 1,25 [place] level 34. [place] lambda light chain ratio not elevated. Started on Sensipar 9. Metabolic alkalosis secondary to diuresis and partially compensatory for underlying respiratory acidosis. Maintained on Diamox. Plan: decrease Lasix Continue with Diamox Can discontinue Sensipar upon discharge. PTH was likely elevated from acute kidney injury. Parathyroid scan is negative for adenoma. replace potassium
--- NOTE | 2024-07-13 14:24 | P.PN ---
Subjective Progress Note Date: 07/13/24 On today's evaluation of 07/10/2024, the patient is being seen for a follow-up. He is currently on 3 Suboxone by nasal cannula with a pulse ox of 93%. Most recent chest x-ray from 07/07/2024 showed resolving bibasilar atelectasis changes. The patient is calm and comfortable. Profoundly weak and debilitated. The white circles of 19.4 with a hemoglobin 1.7 and a platelet count of 230. BUN 31 with a creatinine 1.1 and a sodium level of 135. The patient is known to have advanced COPD and he has chronic hypoxic respiratory failure. He is also known to have obstructive sleep apnea. He is utilizing a BiPAP pressure of 16 over 6 cm of water with an FiO2 of 35% overnight and oxygen between 2 and 3 L/ min nasal cannula in the morning. The patient remains on Lasix 40 mg IV every 24 hours. Remains on DuoNeb nebulized treatments [id number]. No antibiotic coverage for now. He remains on Lovenox 40 mg subcu for DVT prophylaxis. Blood cultures from this current admission has been negative. He typically uses oxygen at 2 L nasal cannula on outpatient basis. Not compliant to home CPAP therapy. He is arousable and communicating. No new complaints otherwise for now. 07/11/2024, the patient is being seen for a follow-up. No new complaints.The BiPAP overnight and the patient is currently on oxygen at 3 L/min nasal cannula. Remains on the same respiratory medication regimen. The patient remains on DuoNeb, budesonide and Pulmicort nebulized treatments twice a day and the patient is also on IV Solu-Medrol 40 mg every 8 hours. Labs from today shows a white cell count of 20 with a hemoglobin of 12.1 and a platelet count of 195. BUN 35 with a creatinine 1.1 and the patient's renal function is improved and a sodium levels at 139 and serum bicarb is at 38. Remains on Lovenox for DVT prophylaxis. Remains on Lasix 40 mg IV every 24 hours. Remains on Diamox to 50 mg p.o. twice a day to counteract metabolic alkalosis. No other complaints. She is able to sit up in the chair. Overall condition is quite debilitated the patient remains quite weak. A follow-up chest x-ray was done and showed some ongoing issues with cardiomegaly. The patient also has some mild pulm vas conge stion. On 07/12/2024, the patient for a follow-up. Patient is calm and comfortable. Has no specific complaints. Tolerating the BiPAP overnight. No chest pain. No shortness of breath. She is still on IV Solu-Medrol and this is going to be transition to prednisone burst taper. The patient remains on DuoNeb treatments [id number]. Patient remains on performance of Pulmicort updrafts. WBC count is 18 with a hemoglobin of 0.8 and a platelet count of 228. No chest pain. No angina. No palpitations. Procalcitonin level is normal. Patient remains on Diamox to 50 mg p.o. daily. The patient is also on Lovenox for DVT prophylaxis 40 mg SQ daily and Lasix 40 mg IV every 12 hours. On 07/13/2024, the patient is being seen for a follow-up. The patient is doing well with no specific complaints or any other significant events overnight. Respiratory status is stable and the patient is on 2 L of oxygen by nasal cannula with a pulse ox of 92%. Labs from today shows a white cell count of 17, hemoglobin 11.5, serum bicarbonate 45 and the patient remains on Diamox. Sodium is at 138, potassium is at 3.1. Patient's BUN is 35 with a creatinine of 1.24. The patient received Lasix 40 mg IV every 24 hours. The patient is also on Diamox to 50 mg p.o. twice a day. Patient is also on a prednisone burst taper. Objective - Vital Signs Vital signs: Vital Signs Temp 98 F 07/13/24 08:00 Pulse 88 07/13/24 11:45 Resp 18 07/13/24 11:33 BP 120/56 07/13/24 11:33 Pulse Ox 95 07/13/24 11:33 FiO2 35 07/13/24 04:00 Intake & Output 07/12/24 07/13/24 07/13/24 18:59 06:59 18:59 Intake Total 540 118 Output Total 900 Balance -360 118 Weight 90.49 kg Intake: Oral 540 118 Output: Urine 900 Other: Voiding Method Diaper Diaper Diaper Incontinent Incontinent Incontinent External Catheter # Bowel Movements 0 3 - Exam No acute distress, currently off BiPAP on 2 L of oxygen by nasal cannula. HEENT examination is grossly unremarkable. Neck supple. Full range of motion. No adenopathy thyromegaly or neck vein distention. Cardiovascular examination reveals regular rhythm rate. S1-S2 normal. No S3 or S4. No discernible murmur noted. Heart sounds are distant. Lungs reveal scattered rhonchi. Mild expiratory wheezes. No crackles. Breath sounds equal. Abdomen soft bowel sounds. No masses or tenderness. Extremities are intact. No cyanosis or clubbing. Trace edema present. Skin is without rash or lesion. Neurologic examination is brief but nonfocal. - Labs CBC & Chem 7: 07/13/24 06:19 07/13/24 06:19 Labs: Abnormal Lab Results - Last 24 Hours (Table) 07/12/24 07/12/24 07/13/24 Range/Units 14:19 16:44 06:19 WBC 18.0 H 17.1 H (3.8-10.6) k/uL MCHC 30.5 L (31.0-37.0) g/dL Neutrophils # 17.1 H 14.9 H (1.3-7.7) k/uL Lymphocytes # 0.2 L (1.0-4.8) k/uL Potassium (3.5-5.1) mmol/L Chloride (98-107) mmol/L Carbon Dioxide (22-30) mmol/L BUN (7-17) mg/dL Creatinine (0.52-1.04) mg/dL POC Glucose (mg/dL) 143 H (70-110) mg/dL ALT (4-34) U/L Total Protein (6.3-8.2) g/dL Albumin (3.5-5.0) g/dL 07/13/24 07/13/24 Range/Units 06:19 11:27 WBC (3.8-10.6) k/uL MCHC (31.0-37.0) g/dL Neutrophils # (1.3-7.7) k/uL Lymphocytes # (1.0-4.8) k/uL Potassium 3.1 L (3.5-5.1) mmol/L Chloride 90 L (98-107) mmol/L Carbon Dioxide 45 H* (22-30) mmol/L BUN 35 H (7-17) mg/dL Creatinine 1.24 H (0.52-1.04) mg/dL POC Glucose (mg/dL) 124 H (70-110) mg/dL ALT 50 H (4-34) U/L Total Protein 5.5 L (6.3-8.2) g/dL Albumin 3.2 L (3.5-5.0) g/dL Assessment and Plan Plan: Acute on chronic hypoxemic and hypercapnic respiratory failure, secondary to acute COPD exacerbation and extensive of right sided healthcare associated pneumonia. Clinically improved and the patient is currently on 2 liters of oxygen by nasal cannula, overall respiratory status is stable and the patient continues to be on bronchodilators and steroids and diuretics. Acute hypercapnic encephalopathy, currently stable. Utilizing BiPAP overnight. Right lung atelectasis, improved on subsequent chest x-rays specially 1 from today shows cardiomegaly and mild pulm vascular congestion. Severe chronic obstructive pulmonary disease Chronic hypoxemic respiratory failure, secondary to above, normally on 1.5 L/min nasal cannula while at home Chronic metabolic alkalosis, currently on Diamox Obstructive sleep apnea, reportedly noncompliant with home CPAP machine History of heart failure, with borderline mildly impaired left ventricular ejection fraction of 45 to 50% Pulmonary hypertension Chronic atrial fibrillation, anticoagulated with Eliquis Hyperlipidemia Hypertension Plan: No change in overall condition over the past 24 hours Medically stable and the patient's overall condition is unchanged Keep the patient on diuretics and the patient is on Lasix and Diamox Monitor serum bicarb level Currently on oxygen at 2 L/min nasal cannula Overnight, the patient is on BiPAP, with settings of 16/6, and 35%. The patient is not receiving any IV fluids. Provide incentive spirometer the patient's procalcitonin level was 0.09. Patient was started on a prednisone burst taper Increase mobility and the patient should be able to transition on a recliner today with the help of physical therapy We will continue to follow the patient. Prognosis is guarded. She is a no code/DNR patient.
--- NOTE | 2024-07-13 15:11 | P.PN ---
Subjective Progress Note Date: 07/13/24 Principal diagnosis: Reason for follow-up is pneumonia Patient is a 78-year female with a past medical history significant for hypertension COPD atrial fibrillation, obstructive sleep apnea and recent admission to the hospital April 2024 for COPD exacerbation patient has been brought into the ER by EMS as the patient was noticed to be lethargic and sleepy at home patient was noted to be short of breath, patient did have a CT with evidence of extensive consolidation concerning for pneumonia. On today's evaluation that is 07/13/2024,the patient denies any fever or any chills, patient is breathing comfortably on 2 L nasal cannula oxygen, the patient denies chest pain shortness of breath and no significant cough, patient denies abdominal pain, no nausea vomiting or diarrhea. Patient white count 17.1, creatinine 1.24 blood culture negative Objective - Vital Signs Vital signs: Vital Signs Temp 98 F 07/13/24 08:00 Pulse 88 07/13/24 11:45 Resp 18 07/13/24 11:33 BP 120/56 07/13/24 11:33 Pulse Ox 95 07/13/24 11:33 FiO2 35 07/13/24 04:00 Intake & Output 07/12/24 07/13/24 07/13/24 18:59 06:59 18:59 Intake Total 540 118 Output Total 900 Balance -360 118 Weight 90.49 kg Intake: Oral 540 118 Output: Urine 900 Other: Voiding Method Diaper Diaper Diaper Incontinent Incontinent Incontinent External Catheter # Bowel Movements 0 3 - Exam GENERAL DESCRIPTION: An elderly female lying in bed in no distress RESPIRATORY SYSTEM: Unlabored breathing , decreased breath sounds at bases HEART: S1 S2 regular rate and rhythm , ABDOMEN: Soft , no tenderness EXTREMITIES: No edema feet - Labs CBC & Chem 7: 07/13/24 06:19 07/13/24 06:19 Labs: Abnormal Lab Results - Last 24 Hours (Table) 07/12/24 07/12/24 07/13/24 Range/Units 14:19 16:44 06:19 WBC 18.0 H 17.1 H (3.8-10.6) k/uL MCHC 30.5 L (31.0-37.0) g/dL Neutrophils # 17.1 H 14.9 H (1.3-7.7) k/uL Lymphocytes # 0.2 L (1.0-4.8) k/uL Potassium (3.5-5.1) mmol/L Chloride (98-107) mmol/L Carbon Dioxide (22-30) mmol/L BUN (7-17) mg/dL Creatinine (0.52-1.04) mg/dL POC Glucose (mg/dL) 143 H (70-110) mg/dL ALT (4-34) U/L Total Protein (6.3-8.2) g/dL Albumin (3.5-5.0) g/dL 07/13/24 07/13/24 Range/Units 06:19 11:27 WBC (3.8-10.6) k/uL MCHC (31.0-37.0) g/dL Neutrophils # (1.3-7.7) k/uL Lymphocytes # (1.0-4.8) k/uL Potassium 3.1 L (3.5-5.1) mmol/L Chloride 90 L (98-107) mmol/L Carbon Dioxide 45 H* (22-30) mmol/L BUN 35 H (7-17) mg/dL Creatinine 1.24 H (0.52-1.04) mg/dL POC Glucose (mg/dL) 124 H (70-110) mg/dL ALT 50 H (4-34) U/L Total Protein 5.5 L (6.3-8.2) g/dL Albumin 3.2 L (3.5-5.0) g/dL Assessment and Plan (1) Pneumonia Current Visit: Yes Status: Acute Code(s): J18.9 - PNEUMONIA, UNSPECIFIED ORGANISM SNOMED Code(s): 967372789 (2) Sepsis Current Visit: Yes Status: Acute Code(s): A41.9 - SEPSIS, UNSPECIFIED ORGANISM SNOMED Code(s): 06747864 (3) Leukocytosis Current Visit: No Status: Acute Code(s): D72.829 - ELEVATED WHITE BLOOD CELL COUNT, UNSPECIFIED SNOMED Code(s): 543162196 Plan: 1patient presented to hospital with sepsis in this patient who did have elevated white count tachycardia source is likely pneumonia with evidence of right-sided consolidation question of aspiration/gram-negative as the patient has been in and out of the hospital, gram-positive infection not entirely excluded patient has received adequate antibiotic therapy for underlying pneumonia and Zosyn was discontinued 2-patient blood cultures has been negative, sputum has not been collected 3patient leukocytosis more likely steroid related, did have a normal CRP as well as procalcitonin and the patient white count is trending down no need for any antibiotic on discharge Dictation was produced using [employer] dictation software. please excuse any grammatical, word or spelling errors. Time with Patient: Less than 30
[2024-07-13 16:21] LABS: Glucose,Whole Blood 131 mg/dL (70-110)
[2024-07-13 20:01] LABS: Glucose,Whole Blood 197 mg/dL (70-110)
[2024-07-14 05:42] LABS: Glucose,Whole Blood 125 mg/dL (70-110)
[2024-07-14 08:13] LABS: Basophils % (A) 0 %; Eosinophils % (A) 0 %; HCT 37.9 % (34.0-46.0); HGB 11.6 gm/dL (11.4-16.0); Hypochromasia Marked; Lymphocytes % (A) 5 %; MCH 30.2 pg (25.0-35.0); MCHC 30.6 g/dL (31.0-37.0); MCV 98.7 fL (80.0-100.0); Mean Platelet Volume 7.3; Monocytes # (A) 0.9 k/uL (0-1.0); Monocytes % (A) 5 %; Neutrophils # (A) 16.4 k/uL (1.3-7.7); Neutrophils % (A) 89 %; Platelet Count 280 k/uL (150-450); RBC 3.84 m/uL (3.80-5.40); RDW 13.6 % (11.5-15.5); WBC 18.4 k/uL (3.8-10.6)
[2024-07-14 08:41] LABS: ALT 42 U/L (4-34); AST 28 U/L (14-36); African American GFR (CKD) 57 (>60 ml/min/1.73 sqM); Albumin 3.3 g/dL (3.5-5.0); Alkaline Phosphatase 82 U/L (38-126); Blood Urea Nitrogen 36 mg/dL (7-17); Calcium 9.2 mg/dL (8.4-10.2); Chloride 89 mmol/L (98-107); Glucose 88 mg/dL (74-99); Non-African American GFR(CKD) 50 (>60 ml/min/1.73 sqM); Potassium 3.7 mmol/L (3.5-5.1); Sodium 135 mmol/L (137-145); Total Protein 5.6 g/dL (6.3-8.2)
[2024-07-14 08:49] LABS: Anion Gap 3 mmol/L
[2024-07-14 08:50] LABS: Carbon Dioxide 43 mmol/L (22-30)
[2024-07-14] MEDS: FUROSEMIDE 10 MG/ML 4 ML VIAL IV SCH (08:52)
[2024-07-14 11:36] LABS: Glucose,Whole Blood 147 mg/dL (70-110)
--- NOTE | 2024-07-14 12:30 | P.PN ---
Subjective Patient is seen for follow-up for acute kidney injury. Serum creatinine at 1.0 Lasix was decreased back to once a day due to metabolic alkalosis. No significant complaints today. Objective - Vital Signs Vital signs: Vital Signs Temp 97.9 F 07/14/24 08:00 Pulse 90 07/14/24 11:43 Resp 20 07/14/24 08:00 BP 122/69 07/14/24 08:00 Pulse Ox 92 L 07/14/24 08:00 FiO2 35 07/14/24 03:25 Intake & Output 07/13/24 07/14/24 07/14/24 18:59 06:59 18:59 Intake Total 1378 540 480 Output Total 200 Balance 1378 540 280 Weight 87.5 kg Intake: Oral 1378 540 480 Output: Urine 200 Other: Voiding Method Diaper Diaper Diaper Incontinent Incontinent Incontinent External Catheter External Catheter # Voids 10 1 # Bowel Movements 1 1 - Exam Patient is awake, comfortable, no acute distress, on BiPAP Examination of the heart S1 and S2 Examination of the lungs decreased breath sounds at the bases Abdomen is soft nontender Examination of lower extremities shows no significant edema. [employer] exam grossly intact - Labs CBC & Chem 7: 07/14/24 07:33 07/14/24 07:33 Labs: Abnormal Lab Results - Last 24 Hours (Table) 07/13/24 07/13/24 07/14/24 Range/Units 16:15 19:59 05:41 WBC (3.8-10.6) k/uL MCHC (31.0-37.0) g/dL Neutrophils # (1.3-7.7) k/uL Sodium (137-145) mmol/L Chloride (98-107) mmol/L Carbon Dioxide (22-30) mmol/L BUN (7-17) mg/dL Creatinine (0.52-1.04) mg/dL POC Glucose (mg/dL) 131 H 197 H 125 H (70-110) mg/dL ALT (4-34) U/L Total Protein (6.3-8.2) g/dL Albumin (3.5-5.0) g/dL 07/14/24 07/14/24 07/14/24 Range/Units 07:33 07:33 11:33 WBC 18.4 H (3.8-10.6) k/uL MCHC 30.6 L (31.0-37.0) g/dL Neutrophils # 16.4 H (1.3-7.7) k/uL Sodium 135 L (137-145) mmol/L Chloride 89 L (98-107) mmol/L Carbon Dioxide 43 H* (22-30) mmol/L BUN 36 H (7-17) mg/dL Creatinine 1.07 H (0.52-1.04) mg/dL POC Glucose (mg/dL) 147 H (70-110) mg/dL ALT 42 H (4-34) U/L Total Protein 5.6 L (6.3-8.2) g/dL Albumin 3.3 L (3.5-5.0) g/dL Assessment and Plan Assessment: . Acute kidney injury secondary to hemodynamic ATN. Baseline creatinine 0.8 from April 2024 and peaked at 2.05 this admission -1.1. Nonoliguric. No hydronephrosis noted on kidney ultrasound. Left kidney atrophic. 2. Hyperkalemia secondary to acute kidney injury, losartan and potassium supplementation. Resolved. 3. Acute on chronic hypoxic and hypercapnic respiratory failure. Improved. Now on nasal cannula. 4. Pneumonia s/p antibiotics. 5. History of right upper lobe lobectomy. 6. Chronic diastolic CHF with moderate tricuspid regurgitation and severe pulmonary hypertension. 7. Hypernatremia from lack of oral water intake. Improved. 8. Hypercalcemia. Not on any calcium or vitamin D supplementation. Possibly volume contraction. PTH elevated at 130 concerning for primary hyperparathyroidism. Parathyroid nuclear scan was negative. PTH was likely elevated secondary to acute kidney injury. Vitamin D 8.5. PJ level 17. 1,25 OH level 34. [place] lambda light chain ratio not elevated. Started on Sensipar 9. Metabolic alkalosis secondary to diuresis and partially compensatory for underlying respiratory acidosis. Maintained on Diamox. Plan: Continue with current dose of Lasix Continue with Diamox Can discontinue Sensipar upon discharge. PTH was likely elevated from acute kidney injury. Parathyroid scan is negative for adenoma. replace potassium
--- NOTE | 2024-07-14 12:58 | P.PN ---
Subjective Progress Note Date: 07/14/24 On today's evaluation of 07/10/2024, the patient is being seen for a follow-up. He is currently on 3 Suboxone by nasal cannula with a pulse ox of 93%. Most recent chest x-ray from 07/07/2024 showed resolving bibasilar atelectasis changes. The patient is calm and comfortable. Profoundly weak and debilitated. The white circles of 19.4 with a hemoglobin 1.7 and a platelet count of 230. BUN 31 with a creatinine 1.1 and a sodium level of 135. The patient is known to have advanced COPD and he has chronic hypoxic respiratory failure. He is also known to have obstructive sleep apnea. He is utilizing a BiPAP pressure of 16 over 6 cm of water with an FiO2 of 35% overnight and oxygen between 2 and 3 L/ min nasal cannula in the morning. The patient remains on Lasix 40 mg IV every 24 hours. Remains on DuoNeb nebulized treatments [id number]. No antibiotic coverage for now. He remains on Lovenox 40 mg subcu for DVT prophylaxis. Blood cultures from this current admission has been negative. He typically uses oxygen at 2 L nasal cannula on outpatient basis. Not compliant to home CPAP therapy. He is arousable and communicating. No new complaints otherwise for now. 07/11/2024, the patient is being seen for a follow-up. No new complaints.The BiPAP overnight and the patient is currently on oxygen at 3 L/min nasal cannula. Remains on the same respiratory medication regimen. The patient remains on DuoNeb, budesonide and Pulmicort nebulized treatments twice a day and the patient is also on IV Solu-Medrol 40 mg every 8 hours. Labs from today shows a white cell count of 20 with a hemoglobin of 12.1 and a platelet count of 195. BUN 35 with a creatinine 1.1 and the patient's renal function is improved and a sodium levels at 139 and serum bicarb is at 38. Remains on Lovenox for DVT prophylaxis. Remains on Lasix 40 mg IV every 24 hours. Remains on Diamox to 50 mg p.o. twice a day to counteract metabolic alkalosis. No other complaints. She is able to sit up in the chair. Overall condition is quite debilitated the patient remains quite weak. A follow-up chest x-ray was done and showed some ongoing issues with cardiomegaly. The patient also has some mild pulm vas conge stion. On 07/12/2024, the patient for a follow-up. Patient is calm and comfortable. Has no specific complaints. Tolerating the BiPAP overnight. No chest pain. No shortness of breath. She is still on IV Solu-Medrol and this is going to be transition to prednisone burst taper. The patient remains on DuoNeb treatments [id number]. Patient remains on performance of Pulmicort updrafts. WBC count is 18 with a hemoglobin of 0.8 and a platelet count of 228. No chest pain. No angina. No palpitations. Procalcitonin level is normal. Patient remains on Diamox to 50 mg p.o. daily. The patient is also on Lovenox for DVT prophylaxis 40 mg SQ daily and Lasix 40 mg IV every 12 hours. On 07/13/2024, the patient is being seen for a follow-up. The patient is doing well with no specific complaints or any other significant events overnight. Respiratory status is stable and the patient is on 2 L of oxygen by nasal cannula with a pulse ox of 92%. Labs from today shows a white cell count of 17, hemoglobin 11.5, serum bicarbonate 45 and the patient remains on Diamox. Sodium is at 138, potassium is at 3.1. Patient's BUN is 35 with a creatinine of 1.24. The patient received Lasix 40 mg IV every 24 hours. The patient is also on Diamox to 50 mg p.o. twice a day. Patient is also on a prednisone burst taper. 07/14/2024, the patient is being seen for a follow-up. Resting comfortably in bed. Remains profoundly weak. Unable to maintain or carry her weight with her lower extremities. She needs help for activity. No new complaints. She remains on Lasix 40 mg every 24 hours. She remains on Diamox. She is on a prednisone burst taper. She remains on bronchodilators. The white cell count is 18 with a hemoglobin 11.6 and a platelet count of 280. Serum bicarb is at 43, sodium is at 135, BUN 36 with a creatinine of 1.07. Oxygenation remains unchanged and the patient remains on 2 L of O2 nasal cannula with a pulse ox of 96%. Limited cough. No significant sputum production. Objective - Vital Signs Vital signs: Vital Signs Temp 97.6 F 09/07/24 04:00 Pulse 90 07/14/24 08:20 Resp 18 07/14/24 04:00 BP 104/72 07/14/24 04:00 Pulse Ox 97 07/14/24 07:57 FiO2 35 07/14/24 03:25 Intake & Output 07/13/24 07/14/24 07/14/24 18:59 06:59 18:59 Intake Total 1378 540 240 Balance 1378 540 240 Weight 87.5 kg Intake: Oral 1378 540 240 Other: Voiding Method Diaper Diaper Incontinent Incontinent External Catheter # Voids 10 1 # Bowel Movements 1 1 - Exam No acute distress, currently off BiPAP on 2 L of oxygen by nasal cannula. HEENT examination is grossly unremarkable. Neck supple. Full range of motion. No adenopathy thyromegaly or neck vein distention. Cardiovascular examination reveals regular rhythm rate. S1-S2 normal. No S3 or S4. No discernible murmur noted. Heart sounds are distant. Lungs reveal scattered rhonchi. Mild expiratory wheezes. No crackles. Breath sounds equal. Abdomen soft bowel sounds. No masses or tenderness. Extremities are intact. No cyanosis or clubbing. Trace edema present. Skin is without rash or lesion. Neurologic examination is brief but nonfocal. - Labs CBC & Chem 7: 07/14/24 07:33 07/14/24 07:33 Labs: Abnormal Lab Results - Last 24 Hours (Table) 07/13/24 07/13/24 07/13/24 Range/Units 11:27 16:15 19:59 WBC (3.8-10.6) k/uL MCHC (31.0-37.0) g/dL Neutrophils # (1.3-7.7) k/uL Sodium (137-145) mmol/L Chloride (98-107) mmol/L Carbon Dioxide (22-30) mmol/L BUN (7-17) mg/dL Creatinine (0.52-1.04) mg/dL POC Glucose (mg/dL) 124 H 131 H 197 H (70-110) mg/dL ALT (4-34) U/L Total Protein (6.3-8.2) g/dL Albumin (3.5-5.0) g/dL 07/14/24 07/14/24 07/14/24 Range/Units 05:41 07:33 07:33 WBC 18.4 H (3.8-10.6) k/uL MCHC 30.6 L (31.0-37.0) g/dL Neutrophils # 16.4 H (1.3-7.7) k/uL Sodium 135 L (137-145) mmol/L Chloride 89 L (98-107) mmol/L Carbon Dioxide 43 H* (22-30) mmol/L BUN 36 H (7-17) mg/dL Creatinine 1.07 H (0.52-1.04) mg/dL POC Glucose (mg/dL) 125 H (70-110) mg/dL ALT 42 H (4-34) U/L Total Protein 5.6 L (6.3-8.2) g/dL Albumin 3.3 L (3.5-5.0) g/dL Assessment and Plan Plan: Acute on chronic hypoxemic and hypercapnic respiratory failure, secondary to acute COPD exacerbation and extensive of right sided healthcare associated pneumonia. Clinically improved and the patient is currently on 2 liters of oxygen by nasal cannula, overall respiratory status is stable and the patient continues to be on bronchodilators and steroids and diuretics. Acute hypercapnic encephalopathy, currently stable. Utilizing BiPAP overnight. Right lung atelectasis, improved on subsequent chest x-rays specially 1 from today shows cardiomegaly and mild pulm vascular congestion. Severe chronic obstructive pulmonary disease Chronic hypoxemic respiratory failure, secondary to above, normally on 1.5 L/min nasal cannula while at home Chronic metabolic alkalosis, currently on Diamox Obstructive sleep apnea, reportedly noncompliant with home CPAP machine History of heart failure, with borderline mildly impaired left ventricular ejection fraction of 45 to 50% Pulmonary hypertension Chronic atrial fibrillation, anticoagulated with Eliquis Hyperlipidemia Hypertension Plan: Remains profoundly weak and the patient needs aggressive pulm rehabilitation and physical rehabilitation. No change in overall condition over the past 24 hours Medically stable and the patient's overall condition is unchanged Keep the patient on diuretics and the patient is on Lasix and Diamox Monitor serum bicarb level Currently on oxygen at 2 L/min nasal cannula Overnight, the patient is on BiPAP, with settings of 16/6, and 35%. The patient is not receiving any IV fluids. Provide incentive spirometer the patient's procalcitonin level was 0.09. Patient was started on a prednisone burst taper Increase mobility and the patient should be able to transition on a recliner today with the help of physical therapy We will continue to follow the patient. Prognosis is guarded. She is a no code/DNR patient.
[2024-07-14] MEDS: POTASSIUM CHLORIDE ER 20 MEQ TAB.ER PO STA (13:02)
--- NOTE | 2024-07-14 15:02 | P.PN ---
Subjective Progress Note Date: 07/14/24 Principal diagnosis: Reason for follow-up is pneumonia Patient is a 78-year female with a past medical history significant for hypertension COPD atrial fibrillation, obstructive sleep apnea and recent admission to the hospital April 2024 for COPD exacerbation patient has been brought into the ER by EMS as the patient was noticed to be lethargic and sleepy at home patient was noted to be short of breath, patient did have a CT with evidence of extensive consolidation concerning for pneumonia. On today's evaluation that is 07/14/2024,the patient remains to be afebrile, patient is on 2 L nasal cannula supplemental oxygen and denies any shortness of breath no chest pain or any worsening cough.Patient denies having any nausea or vomiting, no abdominal pain and no diarrhea has been reported. Patient white count is 18.4, creatinine 1.07 blood culture has been negative Objective - Vital Signs Vital signs: Vital Signs Temp 97.9 F 07/14/24 08:00 Pulse 99 07/14/24 12:00 Resp 18 07/14/24 12:00 BP 116/65 07/14/24 12:00 Pulse Ox 94 L 07/14/24 12:00 FiO2 35 07/14/24 03:25 Intake & Output 07/13/24 07/14/24 07/14/24 18:59 06:59 18:59 Intake Total 1378 540 480 Output Total 1200 Balance 1378 540 -720 Weight 87.5 kg Intake: Oral 1378 540 480 Output: Urine 1200 Other: Voiding Method Diaper Diaper Diaper Incontinent Incontinent Incontinent External Catheter External Catheter # Voids 10 1 # Bowel Movements 1 1 - Exam GENERAL DESCRIPTION: An elderly female lying in bed in no distress RESPIRATORY SYSTEM: Unlabored breathing , decreased breath sounds at bases HEART: S1 S2 regular rate and rhythm , ABDOMEN: Soft , no tenderness EXTREMITIES: No edema feet - Labs CBC & Chem 7: 07/14/24 07:33 07/14/24 07:33 Labs: Abnormal Lab Results - Last 24 Hours (Table) 07/13/24 07/13/24 07/14/24 Range/Units 16:15 19:59 05:41 WBC (3.8-10.6) k/uL MCHC (31.0-37.0) g/dL Neutrophils # (1.3-7.7) k/uL Sodium (137-145) mmol/L Chloride (98-107) mmol/L Carbon Dioxide (22-30) mmol/L BUN (7-17) mg/dL Creatinine (0.52-1.04) mg/dL POC Glucose (mg/dL) 131 H 197 H 125 H (70-110) mg/dL ALT (4-34) U/L Total Protein (6.3-8.2) g/dL Albumin (3.5-5.0) g/dL 07/14/24 07/14/24 07/14/24 Range/Units 07:33 07:33 11:33 WBC 18.4 H (3.8-10.6) k/uL MCHC 30.6 L (31.0-37.0) g/dL Neutrophils # 16.4 H (1.3-7.7) k/uL Sodium 135 L (137-145) mmol/L Chloride 89 L (98-107) mmol/L Carbon Dioxide 43 H* (22-30) mmol/L BUN 36 H (7-17) mg/dL Creatinine 1.07 H (0.52-1.04) mg/dL POC Glucose (mg/dL) 147 H (70-110) mg/dL ALT 42 H (4-34) U/L Total Protein 5.6 L (6.3-8.2) g/dL Albumin 3.3 L (3.5-5.0) g/dL Assessment and Plan (1) Pneumonia Current Visit: Yes Status: Acute Code(s): J18.9 - PNEUMONIA, UNSPECIFIED ORGANISM SNOMED Code(s): 234272354 (2) Sepsis Current Visit: Yes Status: Acute Code(s): A41.9 - SEPSIS, UNSPECIFIED ORGANISM SNOMED Code(s): 71110637 (3) Leukocytosis Current Visit: No Status: Acute Code(s): D72.829 - ELEVATED WHITE BLOOD CELL COUNT, UNSPECIFIED SNOMED Code(s): 881750432 Plan: 1patient presented to hospital with sepsis in this patient who did have elevated white count tachycardia source is likely pneumonia with evidence of right-sided consolidation question of aspiration/gram-negative as the patient has been in and out of the hospital, gram-positive infection not entirely excluded patient has received adequate antibiotic therapy for underlying pneumonia and Zosyn was discontinued 2-patient blood cultures has been negative, sputum has not been collected 3patient leukocytosis more likely steroid related, did have a normal CRP as well as procalcitonin and the patient will monitor closely off antibiotics Dictation was produced using [employer] dictation software. please excuse any grammatical, word or spelling errors. Time with Patient: Less than 30
--- NOTE | 2024-07-14 15:39 | P.PN ---
Subjective Progress Note Date: 07/14/24 Patient is a pleasant 78-year-old female with past medical history of multiple medical problems as below. Patient presents because of altered mental status. Patient cannot provide information it was obtained from the family at bedside and records. As per and family patient was not using her BiPAP and she was sleeping most of the time yesterday around 22 hours, family got concerned and brought her to the hospital today. Patient is completely confused and cannot provide information and she has evidence of acute COPD exacerbations and she was admitted to the intensive care unit for this reason. No other information is available at now. On admission: Patient was mildly hypothermic 97.2, she is breathing fast at 30, tachycardic but blood pressure stable at 136/69. Labs reviewed showing WBC 21,000, rest of CBC is unremarkable Sodium 139, potassium 5.4. Creatinine is 1.1 pH is low 7.1, pCO2 is elevated at 98 and low pO2 at 80. Liver enzymes unremarkable Chest x-ray showing right lower lobe infiltrate. Patient is DNR and DNI and this confirmed with the family. Patient is going to be admitted to the ICU CT of brain: no acute process. Moderate to severe chronic small vessel ischemic disease. CT of chest: extensive consolidation and collapse pf the right mid and lower lung and fluid collection in RUL 07/02. Patient seen and examined. Currently on BiPAP. States she feels sligh tly better. Gets short of breath on minimal exertion. Labs done this morning showed WBC 13.3, hemoglobin 13, platelet count 296 sodium 143, potassium 6.1, BUN 50, creatinine 1.72. 07/03. Patient seen and examined. Patient currently on BiPAP, states she is doing slightly better. Currently alert and oriented to self and place. 2D echo done showed LVEF of 65 to 70%, mild to moderate increased left ventricular wall thickness, severe right ventricle dilatation with mild right ventricular hypok inesis, RVSP of 68, moderate tricuspid regurgitation. 07/04. Patient seen and examined. Currently on BiPAP. Continues to be lethargic. 07/05. Patient seen and examined. Patient is lethargic but arousable, answering questions. Continues to be on BiPAP.Blood work done this morning showed WBC 8.5, hemoglobin 10.4 sodium 141, potassium 4.1, BUN 40, creatinine 1.18. 07/06. Patient seen and examined. Continues to be on BiPAP. Blood work done this morning showed WBCs 6.8, hemoglobin 10.7, sodium 140, potassium 3.5, CO2 41, BUN 44, creatinine 1.09. Continues to be lethargic. 07/07. Patient was seen and examined today. Was on liter oxygen in the morning, required BiPAP overnight. WBCs 15.8, hemoglobin 11.4, platelets 236. Sodium is low 129, potassium 4.1, CO2 39, creatinine 1.37. Currently on Zosyn per pulmonary. Nephrology following. 07/08. Patient was seen and examined today. Patient was transferred out of ICU yesterday. Currently on BiPAP, FiO2 to 35%. Zosyn discontinued per infectious disease. On Solu-Medrol, decreased dose. Procalcitonin 0.09. WBCs 19.3 likely secondary to steroids, hemoglobin 11.5, platelet 208. CO2 39, creatinine 1.36. Blood cultures negative so far. 07/09. Patient was seen and examined today. She is seen sitting up in bed with BiPAP, awake and alert, no acute distress. She states that she is feeling well. Currently on BiPAP, FiO2 35%. WBCs 18.6 - likely secondary to steroids, hemoglobin 11.7, platelet 182. 07/10. Patient was seen and examined today. Required BiPAP overnight, currently on 3 L oxygen saturating 93%. Patient family at bedside, patient up in the chair, anticipate subacute rehab given patient appears debilitated and weak. Blood culture negative so far. WBCs 19.4, hemoglobin 11.7, platelet 213. BUN showed sodium 135, potassium 3.9, creatinine 1.13 trending down. BUN 31. Pulmonary following. Patient currently on IV Lasix to 24-hour for fluid overload. Also on acetazolamide due to contraction alkalosis. Also on inhalers/bronchodilator protocol. Patient at baseline uses 2 L oxygen. Noncompliant to CPAP therapy. PT/OT consulted. 07/11. Patient was seen and examined today. She is resting comfortably in bed. Required BiPAP overnight at 16/6 35%, currently on 2 L nasal cannula. WBCs 20 .3, hemoglobin 12.1, platelet 195, BUN 35, creatinine 1.1, sodium 139, potassium 3.5. On inhaler/bronchodilator protocol. Also on acetazolamide due to contraction alkalosis. 07/12. Patient was seen and examined today. She is resting comfortably in bed. Currently on 2 L nasal cannula. WBCs 18, downtrending. On inhaler/bronchodilator protocol. Also on acetazolamide due to contraction alkalosis. PT/OT consulted. 07/13. Patient was seen and examined today. Resting comfortably in bed on 2 L nasal cannula. WBC 17.1, hemoglobin 11.5, platelet 265, sodium 138, potassium 3.1, chloride 90, CO2 45, BUN 35, creatinine 1.24. Maintained on acetazolamide due to contraction alkalosis. 07/14. Patient seen and examined resting comfortably in bed on 2 L nasal cannula. WBCs 18.4, hemoglobin 11.6, platelets 280, sodium 135, potassium 3.7, chloride 89, CO2 43, BUN 36, creatinine 1.07. Maintained on acetazolamide. REVIEW OF SYSTEMS CONSTITUTIONAL: Denies fever or chills. CARDIOVASCULAR: Denies chest pain, palpitations or syncope. PULMONARY: Denies shortness of breath, cough, sore throat. GASTROINTESTINAL: Denies nausea, vomiting, diarrhea, abdominal pain. : Denies dysuria, urgency, frequency. Extremities: Denies muscle/joint pain or swelling. NEUROLOGICAL: Denies headaches, weakness, and numbness. PHYSICAL EXAMINATION GENERAL: A&O x3, NAD. HEENT: EOMI, sclerae anicteric, moist mucous membranes. Neck: Supple, nontender, no JVD. CARDIOVASCULAR: S1-S2 present; no murmurs, rubs, or gallops. PULMONARY: Equal breath sounds bilaterally; mild expiratory wheezing, no crackles. ABDOMEN: Soft, nontender, nondistended, normoactive bowel sounds; no guarding or rebound tenderness. MUSCULOSKELETAL: Normal ROM; intact peripheral pulses; no edema, cyanosis, or clubbing. Skin: Warm; no rash. DVT prophylaxis: subcutaneous Lovenox Assessment: Acute COPD exacerbation Acute hypoxic hypercapnic respiratory failure Acute on chronic diastolic CHF Acute respiratory acidosis Contraction alkalosis secondary to diuresis Hypochloremia due to contraction alkalosis Hypokalemia Acute kidney injury - improving Hypertension Pulmonary hypertension Chronic hypoxic respiratory failure; 2 L nasal cannula at baseline Chronic atrial fibrillation Hyperlipidemia History of obstructive sleep apnea; noncompliant with CPAP History of coronary artery disease status post cardiac catheterization; 2D echo done showed LVEF of 65 to 70%, mild to moderate increased left ventricular wall thickness, severe right ventricle dilatation with mild right ventricular hypokinesis, RVSP of 68 Moderate tricuspid regurgitation Plan: Monitor vital signs Monitor CBC Monitor CMP Continue telemetry monitoring Continue bronchopulmonary hygiene Continue with BiPAP as needed Continue with nasal cannula 2 L, baseline oxygen requirements Strict I's and O's, daily weights Acetazolamide 250 mg twice daily Lasix 40 mg daily Sensipar 30 mg once daily, discontinue upon discharge as per nephrology Nephrology following Pulmonary following ID following PT/OT consulted - expect subacute rehab Labs and medication were reviewed. Continue same treatment. Continue with symptomatic treatment. Resume home medication. Monitor labs and vitals. DVT and GI prophylaxis. Further recommendations as per clinical course of the patient. Attestation: I have personally seen and examined the patient with Resident, reviewed the documentation and participated and agree with the assessment and plan as written. Objective - Vital Signs Vital signs: Vital Signs Temp 97.6 F 07/14/24 04:00 Pulse 79 07/14/24 04:00 Resp 18 07/14/24 04:00 BP 104/72 07/14/24 04:00 Pulse Ox 99 07/14/24 04:00 FiO2 35 07/14/24 03:25 Intake & Output 07/13/24 07/14/24 07/14/24 18:59 06:59 18:59 Intake Total 1378 540 Balance 1378 540 Weight 87.5 kg Intake: Oral 1378 540 Other: Voiding Method Diaper Diaper Incontinent Incontinent External Catheter # Voids 10 # Bowel Movements 1 - Labs CBC & Chem 7: 07/15/24 07:00 07/15/24 07:00 Labs: Abnormal Lab Results - Last 24 Hours (Table) 07/13/24 07/13/24 07/13/24 Range/Units 06:19 11:27 16:15 Potassium 3.1 L (3.5-5.1) mmol/L Chloride 90 L (98-107) mmol/L Carbon Dioxide 45 H* (22-30) mmol/L BUN 35 H (7-17) mg/dL Creatinine 1.24 H (0.52-1.04) mg/dL POC Glucose (mg/dL) 124 H 131 H (70-110) mg/dL ALT 50 H (4-34) U/L Total Protein 5.5 L (6.3-8.2) g/dL Albumin 3.2 L (3.5-5.0) g/dL 07/13/24 07/14/24 Range/Units 19:59 05:41 Potassium (3.5-5.1) mmol/L Chloride (98-107) mmol/L Carbon Dioxide (22-30) mmol/L BUN (7-17) mg/dL Creatinine (0.52-1.04) mg/dL POC Glucose (mg/dL) 197 H 125 H (70-110) mg/dL ALT (4-34) U/L Total Protein (6.3-8.2) g/dL Albumin (3.5-5.0) g/dL
[2024-07-14 16:52] LABS: Glucose,Whole Blood 181 mg/dL (70-110)
[2024-07-14 19:53] LABS: Glucose,Whole Blood 174 mg/dL (70-110)
[2024-07-15 06:18] LABS: Glucose,Whole Blood 117 mg/dL (70-110)
[2024-07-15 07:21] LABS: Basophils % (A) 0 %; Eosinophils % (A) 0 %; HCT 36.4 % (34.0-46.0); HGB 11.4 gm/dL (11.4-16.0); Hypochromasia Moderate; Lymphocytes # (A) 0.6 k/uL (1.0-4.8); Lymphocytes % (A) 4 %; MCH 31.1 pg (25.0-35.0); MCHC 31.3 g/dL (31.0-37.0); MCV 99.3 fL (80.0-100.0); Mean Platelet Volume 7.6; Monocytes # (A) 0.5 k/uL (0-1.0); Monocytes % (A) 4 %; Neutrophils # (A) 12.7 k/uL (1.3-7.7); Neutrophils % (A) 91 %; Platelet Count 245 k/uL (150-450); RBC 3.66 m/uL (3.80-5.40); RDW 13.8 % (11.5-15.5); WBC 13.9 k/uL (3.8-10.6)
[2024-07-15 07:51] LABS: ALT 35 U/L (4-34); AST 22 U/L (14-36); African American GFR (CKD) 59 (>60 ml/min/1.73 sqM); Alkaline Phosphatase 72 U/L (38-126); Blood Urea Nitrogen 31 mg/dL (7-17); Chloride 92 mmol/L (98-107); Glucose 97 mg/dL (74-99); Non-African American GFR(CKD) 51 (>60 ml/min/1.73 sqM); Potassium 4.7 mmol/L (3.5-5.1); Sodium 138 mmol/L (137-145); Total Bilirubin 0.8 mg/dL (0.2-1.3); Total Protein 5.3 g/dL (6.3-8.2)
[2024-07-15 07:57] LABS: Anion Gap 0 mmol/L
[2024-07-15 07:58] LABS: Carbon Dioxide 46 mmol/L (22-30)
[2024-07-15 11:27] LABS: Glucose,Whole Blood 105 mg/dL (70-110)
--- NOTE | 2024-07-15 11:48 | P.PN ---
Subjective Progress Note Date: 07/15/24 On today's evaluation of 07/10/2024, the patient is being seen for a follow-up. He is currently on 3 Suboxone by nasal cannula with a pulse ox of 93%. Most recent chest x-ray from 07/07/2024 showed resolving bibasilar atelectasis changes. The patient is calm and comfortable. Profoundly weak and debilitated. The white circles of 19.4 with a hemoglobin 1.7 and a platelet count of 230. BUN 31 with a creatinine 1.1 and a sodium level of 135. The patient is known to have advanced COPD and he has chronic hypoxic respiratory failure. He is also known to have obstructive sleep apnea. He is utilizing a BiPAP pressure of 16 over 6 cm of water with an FiO2 of 35% overnight and oxygen between 2 and 3 L/ min nasal cannula in the morning. The patient remains on Lasix 40 mg IV every 24 hours. Remains on DuoNeb nebulized treatments [id number]. No antibiotic coverage for now. He remains on Lovenox 40 mg subcu for DVT prophylaxis. Blood cultures from this current admission has been negative. He typically uses oxygen at 2 L nasal cannula on outpatient basis. Not compliant to home CPAP therapy. He is arousable and communicating. No new complaints otherwise for now. 07/11/2024, the patient is being seen for a follow-up. No new complaints.The BiPAP overnight and the patient is currently on oxygen at 3 L/min nasal cannula. Remains on the same respiratory medication regimen. The patient remains on DuoNeb, budesonide and Pulmicort nebulized treatments twice a day and the patient is also on IV Solu-Medrol 40 mg every 8 hours. Labs from today shows a white cell count of 20 with a hemoglobin of 12.1 and a platelet count of 195. BUN 35 with a creatinine 1.1 and the patient's renal function is improved and a sodium levels at 139 and serum bicarb is at 38. Remains on Lovenox for DVT prophylaxis. Remains on Lasix 40 mg IV every 24 hours. Remains on Diamox to 50 mg p.o. twice a day to counteract metabolic alkalosis. No other complaints. She is able to sit up in the chair. Overall condition is quite debilitated the patient remains quite weak. A follow-up chest x-ray was done and showed some ongoing issues with cardiomegaly. The patient also has some mild pulm vas conge stion. On 07/12/2024, the patient for a follow-up. Patient is calm and comfortable. Has no specific complaints. Tolerating the BiPAP overnight. No chest pain. No shortness of breath. She is still on IV Solu-Medrol and this is going to be transition to prednisone burst taper. The patient remains on DuoNeb treatments [id number]. Patient remains on performance of Pulmicort updrafts. WBC count is 18 with a hemoglobin of 0.8 and a platelet count of 228. No chest pain. No angina. No palpitations. Procalcitonin level is normal. Patient remains on Diamox to 50 mg p.o. daily. The patient is also on Lovenox for DVT prophylaxis 40 mg SQ daily and Lasix 40 mg IV every 12 hours. On 07/13/2024, the patient is being seen for a follow-up. The patient is doing well with no specific complaints or any other significant events overnight. Respiratory status is stable and the patient is on 2 L of oxygen by nasal cannula with a pulse ox of 92%. Labs from today shows a white cell count of 17, hemoglobin 11.5, serum bicarbonate 45 and the patient remains on Diamox. Sodium is at 138, potassium is at 3.1. Patient's BUN is 35 with a creatinine of 1.24. The patient received Lasix 40 mg IV every 24 hours. The patient is also on Diamox to 50 mg p.o. twice a day. Patient is also on a prednisone burst taper. 07/14/2024, the patient is being seen for a follow-up. Resting comfortably in bed. Remains profoundly weak. Unable to maintain or carry her weight with her lower extremities. She needs help for activity. No new complaints. She remains on Lasix 40 mg every 24 hours. She remains on Diamox. She is on a prednisone burst taper. She remains on bronchodilators. The white cell count is 18 with a hemoglobin 11.6 and a platelet count of 280. Serum bicarb is at 43, sodium is at 135, BUN 36 with a creatinine of 1.07. Oxygenation remains unchanged and the patient remains on 2 L of O2 nasal cannula with a pulse ox of 96%. Limited cough. No significant sputum production. 07/15/2024, the patient is being seen for a follow-up. Uneventful evening. Calm and comfortable. No new complaints. Resting comfortably in bed. Currently on 2 L of oxygen by nasal cannula. Medications remain unchanged. The patient is currently on Lasix 40 mg IV every 24 hours and the patient remains on Diamox. The patient is on a prednisone burst taper starting with 40 mg. Serum bicarb is 46, white cell count of 15.9 with a hemoglobin of 11.4 and a platelet count of 246. No chest pain. No significant shortness of breath. Profoundly weak and debilitated. Objective - Vital Signs Vital signs: Vital Signs Temp 97.9 F 07/15/24 08:00 Pulse 91 07/15/24 08:00 Resp 20 07/15/24 08:00 BP 114/57 07/15/24 08:00 Pulse Ox 100 07/15/24 08:00 FiO2 35 07/15/24 04:00 Intake & Output 07/14/24 07/15/24 07/15/24 18:59 06:59 18:59 Intake Total 960 480 Output Total 1600 750 500 Balance -640 -750 -20 Weight 86.5 kg Intake: Oral 960 480 Output: Urine 1600 750 500 Other: Voiding Method Diaper Diaper Diaper Incontinent Incontinent Incontinent External Catheter External Catheter # Voids 1 # Bowel Movements 1 2 - Exam No acute distress, currently off BiPAP on 2 L of oxygen by nasal cannula. HEENT examination is grossly unremarkable. Neck supple. Full range of motion. No adenopathy thyromegaly or neck vein distention. Cardiovascular examination reveals regular rhythm rate. S1-S2 normal. No S3 or S4. No discernible murmur noted. Heart sounds are distant. Lungs reveal scattered rhonchi. Mild expiratory wheezes. No crackles. Breath sounds equal. Abdomen soft bowel sounds. No masses or tenderness. Extremities are intact. No cyanosis or clubbing. Trace edema present. Skin is without rash or lesion. Neurologic examination is brief but nonfocal. - Labs CBC & Chem 7: 07/15/24 07:00 07/15/24 07:00 Labs: Abnormal Lab Results - Last 24 Hours (Table) 07/14/24 07/14/24 07/14/24 Range/Units 11:33 16:47 19:51 WBC (3.8-10.6) k/uL RBC (3.80-5.40) m/uL Neutrophils # (1.3-7.7) k/uL Lymphocytes # (1.0-4.8) k/uL Chloride (98-107) mmol/L Carbon Dioxide (22-30) mmol/L BUN (7-17) mg/dL POC Glucose (mg/dL) 147 H 181 H 174 H (70-110) mg/dL ALT (4-34) U/L Total Protein (6.3-8.2) g/dL Albumin (3.5-5.0) g/dL 07/15/24 07/15/24 07/15/24 Range/Units 06:17 07:00 07:00 WBC 13.9 H (3.8-10.6) k/uL RBC 3.66 L (3.80-5.40) m/uL Neutrophils # 12.7 H (1.3-7.7) k/uL Lymphocytes # 0.6 L (1.0-4.8) k/uL Chloride 92 L (98-107) mmol/L Carbon Dioxide 46 H* (22-30) mmol/L BUN 31 H (7-17) mg/dL POC Glucose (mg/dL) 117 H (70-110) mg/dL ALT 35 H (4-34) U/L Total Protein 5.3 L (6.3-8.2) g/dL Albumin 3.0 L (3.5-5.0) g/dL Assessment and Plan Plan: Acute on chronic hypoxemic and hypercapnic respiratory failure, secondary to acute COPD exacerbation and extensive of right sided healthcare associated pneumonia. Clinically improved and the patient is currently on 2 liters of oxygen by nasal cannula, overall respiratory status is stable and the patient continues to be on bronchodilators and steroids and diuretics. Acute hypercapnic encephalopathy, currently stable. Utilizing BiPAP overnight. Right lung atelectasis, improved on subsequent chest x-rays specially 1 from today shows cardiomegaly and mild pulm vascular congestion. Severe chronic obstructive pulmonary disease Chronic hypoxemic respiratory failure, secondary to above, normally on 1.5 L/min nasal cannula while at home Chronic metabolic alkalosis, currently on Diamox Obstructive sleep apnea, reportedly noncompliant with home CPAP machine History of heart failure, with borderline mildly impaired left ventricular eje ction fraction of 45 to 50% Pulmonary hypertension Chronic atrial fibrillation, anticoagulated with Eliquis Hyperlipidemia Hypertension Plan: Essentially the same treatment. No change in her condition over the past 24 to 28 hours Remains profoundly weak and the patient needs aggressive pulm rehabilitation and physical rehabilitation. Medically stable and the patient's overall condition is unchanged Keep the patient on diuretics and the patient is on Lasix and Diamox Monitor serum bicarb level Currently on oxygen at 2 L/min nasal cannula Overnight, the patient is on BiPAP, with settings of 16/6, and 35%. The patient is not receiving any IV fluids. Provide incentive spirometer the patient's procalcitonin level was 0.09. Patient was started on a prednisone burst taper Increase mobility and the patient should be able to transition on a recliner today with the help of physical therapy We will continue to follow the patient. Prognosis is guarded. She is a no cod e/DNR patient.
--- NOTE | 2024-07-15 12:11 | P.PN ---
Subjective Patient is seen for follow-up for acute kidney injury. Serum creatinine at 1.0 Lasix was decreased back to once a day due to metabolic alkalosis. No significant complaints today. Patient is maintained on Diamox. Objective - Vital Signs Vital signs: Vital Signs Temp 97.9 F 07/15/24 08:00 Pulse 88 07/15/24 12:03 Resp 18 07/15/24 11:45 BP 126/63 07/15/24 11:45 Pulse Ox 98 07/15/24 11:45 FiO2 35 07/15/24 04:00 Intake & Output 07/14/24 07/15/24 07/15/24 18:59 06:59 18:59 Intake Total 960 480 Output Total 1600 750 500 Balance -640 -750 -20 Weight 86.5 kg Intake: Oral 960 480 Output: Urine 1600 750 500 Other: Voiding Method Diaper Diaper Diaper Incontinent Incontinent Incontinent External Catheter External Catheter # Voids 1 # Bowel Movements 1 2 - Exam Patient is awake, comfortable, no acute distress, on BiPAP on and off Examination of the heart S1 and S2 Examination of the lungs decreased breath sounds at the bases Abdomen is soft nontender Examination of lower extremities shows no significant edema. [employer] CHIEF exam grossly intact - Labs CBC & Chem 7: 07/15/24 07:00 07/15/24 07:00 Labs: Abnormal Lab Results - Last 24 Hours (Table) 07/14/24 07/14/24 07/15/24 Range/Units 16:47 19:51 06:17 WBC (3.8-10.6) k/uL RBC (3.80-5.40) m/uL Neutrophils # (1.3-7.7) k/uL Lymphocytes # (1.0-4.8) k/uL Chloride (98-107) mmol/L Carbon Dioxide (22-30) mmol/L BUN (7-17) mg/dL POC Glucose (mg/dL) 181 H 174 H 117 H (70-110) mg/dL ALT (4-34) U/L Total Protein (6.3-8.2) g/dL Albumin (3.5-5.0) g/dL 07/15/24 07/15/24 Range/Units 07:00 07:00 WBC 13.9 H (3.8-10.6) k/uL RBC 3.66 L (3.80-5.40) m/uL Neutrophils # 12.7 H (1.3-7.7) k/uL Lymphocytes # 0.6 L (1.0-4.8) k/uL Chloride 92 L (98-107) mmol/L Carbon Dioxide 46 H* (22-30) mmol/L BUN 31 H (7-17) mg/dL POC Glucose (mg/dL) (70-110) mg/dL ALT 35 H (4-34) U/L Total Protein 5.3 L (6.3-8.2) g/dL Albumin 3.0 L (3.5-5.0) g/dL Assessment and Plan Assessment: . Acute kidney injury secondary to hemodynamic ATN. Baseline creatinine 0.8 from April 2024 and peaked at 2.05 this admission -1.0 now.. Nonoliguric. No hydronephrosis noted on kidney ultrasound. Left kidney atrophic. 2. Hyperkalemia secondary to acute kidney injury, losartan and potassium supplementation. Resolved. 3. Acute on chronic hypoxic and hypercapnic respiratory failure. Improved. Now on nasal cannula. 4. Pneumonia s/p antibiotics. 5. History of right upper lobe lobectomy. 6. Chronic diastolic CHF with moderate tricuspid regurgitation and severe pulmonary hypertension. 7. Hypernatremia from lack of oral water intake. Improved. 8. Hypercalcemia. Not on any calcium or vitamin D supplementation. Possibly volume contraction. PTH elevated at 130 concerning for primary hyperparathyroidism. Parathyroid nuclear scan was negative. PTH was likely elev ated secondary to acute kidney injury. Vitamin D 8.5. PJ level 17. 1,25 [place] level 34. Milfay lambda light chain ratio not elevated. Started on Sensipar, now discontinued. 9. Metabolic alkalosis secondary to diuresis and partially compensatory for underlying respiratory acidosis. Maintained on Diamox. Plan: Continue with current dose of Lasix Continue with Diamox DC Sensipar. PTH was likely elevated from acute kidney injury. Parathyroid scan is negative for adenoma.
--- NOTE | 2024-07-15 15:15 | P.PN ---
Subjective Progress Note Date: 07/15/24 Principal diagnosis: Reason for follow-up is pneumonia Patient is a 78-year female with a past medical history significant for hypertension COPD atrial fibrillation, obstructive sleep apnea and recent admission to the hospital April 2024 for COPD exacerbation patient has been brought into the ER by EMS as the patient was noticed to be lethargic and sleepy at home patient was noted to be short of breath, patient did have a CT with evidence of extensive consolidation concerning for pneumonia. On today's evaluation that is 07/15/2024, the patient continues to be afebrile, the patient is on 2 L nasal cannula oxygen and breathing comfortably, the Pt denies having any chest pain or cough, the patient denies having any abdominal pain no vomiting or any diarrhea has been reported by the nursing staff patient white count is down to 13.9, creatinine 1.04 blood culture has been negative Objective - Vital Signs Vital signs: Vital Signs Temp 97.9 F 07/15/24 08:00 Pulse 90 07/15/24 12:16 Resp 18 07/15/24 11:45 BP 126/63 07/15/24 11:45 Pulse Ox 98 07/15/24 11:45 FiO2 35 07/15/24 04:00 Intake & Output 07/14/24 07/15/24 07/15/24 18:59 06:59 18:59 Intake Total 960 720 Output Total 1600 750 500 Balance -640 -750 220 Weight 86.5 kg Intake: Oral 960 720 Output: Urine 1600 750 500 Other: Voiding Method Diaper Diaper Diaper Incontinent Incontinent Incontinent External Catheter External Catheter External Catheter # Voids 1 # Bowel Movements 1 2 - Exam GENERAL DESCRIPTION: An elderly female lying in bed in no distress RESPIRATORY SYSTEM: Unlabored breathing , decreased breath sounds at bases HEART: S1 S2 regular rate and rhythm , ABDOMEN: Soft , no tenderness EXTREMITIES: No edema feet - Labs CBC & Chem 7: 07/15/24 07:00 07/15/24 07:00 Labs: Abnormal Lab Results - Last 24 Hours (Table) 07/14/24 07/14/24 07/15/24 Range/Units 16:47 19:51 06:17 WBC (3.8-10.6) k/uL RBC (3.80-5.40) m/uL Neutrophils # (1.3-7.7) k/uL Lymphocytes # (1.0-4.8) k/uL Chloride (98-107) mmol/L Carbon Dioxide (22-30) mmol/L BUN (7-17) mg/dL POC Glucose (mg/dL) 181 H 174 H 117 H (70-110) mg/dL ALT (4-34) U/L Total Protein (6.3-8.2) g/dL Albumin (3.5-5.0) g/dL 07/15/24 07/15/24 Range/Units 07:00 07:00 WBC 13.9 H (3.8-10.6) k/uL RBC 3.66 L (3.80-5.40) m/uL Neutrophils # 12.7 H (1.3-7.7) k/uL Lymphocytes # 0.6 L (1.0-4.8) k/uL Chloride 92 L (98-107) mmol/L Carbon Dioxide 46 H* (22-30) mmol/L BUN 31 H (7-17) mg/dL POC Glucose (mg/dL) (70-110) mg/dL ALT 35 H (4-34) U/L Total Protein 5.3 L (6.3-8.2) g/dL Albumin 3.0 L (3.5-5.0) g/dL Assessment and Plan (1) Pneumonia Current Visit: Yes Status: Acute Code(s): J18.9 - PNEUMONIA, UNSPECIFIED ORGANISM SNOMED Code(s): 629854339 (2) Sepsis Current Visit: Yes Status: Acute Code(s): A41.9 - SEPSIS, UNSPECIFIED ORGANISM SNOMED Code(s): 95369798 (3) Leukocytosis Current Visit: No Status: Acute Code(s): D72.829 - ELEVATED WHITE BLOOD CELL COUNT, UNSPECIFIED SNOMED Code(s): 437869556 Plan: 1patient presented to hospital with sepsis in this patient who did have elevated white count tachycardia source is likely pneumonia with evidence of right-sided consolidation question of aspiration/gram-negative as the patient has been in and out of the hospital, gram-positive infection not entirely exclud ed patient has received adequate antibiotic therapy for underlying pneumonia and Zosyn was discontinued 2-patient blood cultures has been negative, sputum has not been collected 3patient leukocytosis more likely steroid related, as the patient did have a normal CRP as well as procalcitonin, the patient white count is trending down and will monitor closely off antibiotic Family at the bedside questions answered Dictation was produced using [email or web address] dictation software. please excuse any grammatical, word or spelling errors. Time with Patient: Less than 30
--- NOTE | 2024-07-15 15:33 | P.PN ---
Subjective Progress Note Date: 07/15/24 Interval History: Patient is a pleasant 78-year-old female with past medical history of multiple medical problems as below. Patient presents because of altered mental status. Patient cannot provide information it was obtained from the family at bedside and records. As per and family patient was not using her BiPAP and she was sleeping most of the time yesterday around 22 hours, family got concerned and brought her to the hospital today. Patient is completely confused and cannot provide inform ation and she has evidence of acute COPD exacerbations and she was admitted to the intensive care unit for this reason. No other information is available at now. On admission: Patient was mildly hypothermic 97.2, she is breathing fast at 30, tachycardic but blood pressure stable at 136/69. Labs reviewed showing WBC 21,000, rest of CBC is unremarkable Sodium 139, potassium 5.4. Creatinine is 1.1 pH is low 7.1, pCO2 is elevated at 98 and low pO2 at 80. Liver enzymes unremarkable Chest x-ray showing right lower lobe infiltrate. Patient is DNR and DNI and this confirmed with the family. Patient is going to be admitted to the ICU CT of brain: no acute process. Moderate to severe chronic small vessel ischemic disease. CT of chest: extensive consolidation and collapse pf the right mid and lower lung and fluid collection in RUL 07/02. Patient seen and examined. Currently on BiPAP. States she feels slightly better. Gets short of breath on minimal exertion. Labs done this morning showed WBC 13.3, hemoglobin 13, platelet count 296 sodium 143, potassium 6.1, BUN 50, creatinine 1.72. 07/03. Patient seen and examined. Patient currently on BiPAP, states she is doing slightly better. Currently alert and oriented to self and place. 2D echo done showed LVEF of 65 to 70%, mild to moderate increased left ventricular wall thickness, severe right ventricle dilatation with mild right ventricular hypokinesis, RVSP of 68, moderate tricuspid regurgitation. 07/04. Patient seen and examined. Currently on BiPAP. Continues to be lethargic. 07/05. Patient seen and examined. Patient is lethargic but arousable, answering questions. Continues to be on BiPAP.Blood work done this morning showed WBC 8.5, hemoglobin 10.4 sodium 141, potassium 4.1, BUN 40, creatinine 1.18. 08/30. Patient seen and examined. Continues to be on BiPAP. Blood work done this morning showed WBCs 6.8, hemoglobin 10.7, sodium 140, potassium 3.5, CO2 41, BUN 44, creatinine 1.09. Continues to be lethargic. 07/07. Patient was seen and examined today. Was on liter oxygen in the morning, required BiPAP overnight. WBCs 15.8, hemoglobin 11.4, platelets 236. Sodium is low 129, potassium 4.1, CO2 39, creatinine 1.37. Currently on Zosyn per pulmonary. Nephrology following. 07/08. Patient was seen and examined today. Patient was transferred out of ICU yesterday. Currently on BiPAP, FiO2 to 35%. Zosyn discontinued per infectious disease. On Solu-Medrol, decreased dose. Procalcitonin 0.09. WBCs 19.3 likely secondary to steroids, hemoglobin 11.5, platelet 208. CO2 39, creatinine 1.36. Blood cultures negative so far. 07/09. Patient was seen and examined today. She is seen sitting up in bed with BiPAP, awake and alert, no acute distress. She states that she is feeling well. Currently on BiPAP, FiO2 35%. WBCs 18.6 - likely secondary to steroids, hemoglobin 11.7, platelet 182. 07/10. Patient was seen and examined today. Required BiPAP overnight, currently on 3 L oxygen saturating 93%. Patient family at bedside, patient up in the chair, anticipate subacute rehab given patient appears debilitated and weak. Blood culture negative so far. WBCs 19.4, hemoglobin 11.7, platelet 213. BUN showed sodium 135, potassium 3.9, creatinine 1.13 trending down. BUN 31. Pulmonary following. Patient currently on IV Lasix to 24-hour for fluid overload. Also on acetazolamide due to contraction alkalosis. Also on inhalers/bronchodilator protocol. Patient at baseline uses 2 L oxygen. Noncompliant to CPAP therapy. PT/OT consulted. 07/11. Patient was seen and examined today. She is resting comfortably in bed. Required BiPAP overnight at 16/6 35%, currently on 2 L nasal cannula. WBCs 20.3, hemoglobin 12.1, platelet 195, BUN 35, creatinine 1.1, sodium 139, potassium 3.5. On inhaler/bronchodilator protocol. Also on acetazolamide due to contraction alkalosis. 07/12. Patient was seen and examined today. She is resting comfortably in bed. Currently on 2 L nasal cannula. WBCs 18, downtrending. On inhaler/bronchodilator protocol. Also on acetazolamide due to contraction alkalosis. PT/OT consulted. 07/13. Patient was seen and examined today. Resting comfortably in bed on 2 L nasal cannula. WBC 17.1, hemoglobin 11.5, platelet 265, sodium 138, potassium 3.1, chloride 90, CO2 45, BUN 35, creatinine 1.24. Maintained on acetazolamide due to contraction alkalosis. 07/14. Patient seen and examined resting comfortably in bed on 2 L nasal cannula. WBCs 18.4, hemoglobin 11.6, platelets 280, sodium 135, potassium 3.7, chloride 89, CO2 43, BUN 36, creatinine 1.07. Maintained on acetazolamide. 07/15/2024--was seen and examined today, remains on 2 L oxygen, saturating 98 to 100%. Afebrile. Heart rate 88, respiratory rate 18, blood pressure 126/63. Encouraged ambulation with assistance. Daughter at bedside. WBCs trending down 13.9 today. Hemoglobin stable 11.4. Platelets normal. Sodium 138, potassium 4.7, chloride 92, CO2 went up to 46 today as compared to 43. Creatinine stable 1.04. Remains on IV Lasix and Diamox. Pulmonary and nephrology following. Infectious disease following. Assessment and plan: Acute COPD exacerbation Acute hypoxic hypercapnic respiratory failure Acute on chronic diastolic CHF Acute respiratory acidosis Contraction alkalosis secondary to diuresis Hypochloremia due to contraction alkalosis Hypokalemia Acute kidney injury - improving Hypertension Pulmonary hypertension Chronic hypoxic respiratory failure; 2 L nasal cannula at baseline Chronic atrial fibrillation Hyperlipidemia History of obstructive sleep apnea; noncompliant with CPAP History of coronary artery disease status post cardiac catheterization; 2D echo done showed LVEF of 65 to 70%, mild to moderate increased left ventricular wall thickness, severe right ventricle dilatation with mild right ventricular hypokinesis, RVSP of 68 Moderate tricuspid regurgitation Plan: Monitor vital signs Monitor labs Continue telemetry monitoring Continue bronchopulmonary hygiene Continue with BiPAP as needed Continue with nasal cannula 2 L, baseline oxygen requirements Strict I's and O's, daily weights Acetazolamide 250 mg twice daily Lasix 40 mg daily Sensipar 30 mg once daily, discontinue upon discharge as per nephrology Nephrology following Pulmonary following ID following PT/OT consulted - expect subacute rehab PHYSICAL EXAMINATION: GENERAL: The patient is A&O x3, NAD HEENT: EOMI, Sclerae anicteric, Moist Mucous membranes Neck: Supple, Non tender, No JVD PULMONARY: Equal breath souds B/L, No wheezing, No crackles. CARDIOVASCULAR: S1, S2 present. No murmurs, rubs, or gallops. ABDOMEN: Soft, nontender, nondistended, normoactive bowel sounds. No guarding or rebound tenderness. MUSCULOSKELETAL: No edema, No cyanosis. No clubbing. Normal ROM. Intact peripheral pulses. EXTREMITIES: No cyanosis, clubbing, or pedal edema. NEUROLOGICAL: CN 2-12 grossly intact. No FND Skin: No Rash REVIEW OF SYSTEMS: CONSTITUTIONAL: No fever or chills. CARDIOVASCULAR: No chest pain, palpitations or syncope. PULMONARY: No shortness of breath, no cough, sore throat. GASTROINTESTINAL: No nausea, vomiting, diarrhea, abdominal pain. : No Dysuria, urgency, frequency. Extremities: No edema. NEUROLOGICAL: No headaches, no weakness, or numbness Dictation was produced using [employer] dictation software. please excuse any grammatical, word or spelling errors. Objective - Vital Signs Vital signs: Vital Signs Temp 97.9 F 07/15/24 08:00 Pulse 90 07/15/24 12:16 Resp 18 07/15/24 11:45 BP 126/63 07/15/24 11:45 Pulse Ox 98 07/15/24 11:45 FiO2 35 07/15/24 04:00 Intake & Output 07/14/24 07/15/24 07/15/24 18:59 06:59 18:59 Intake Total 960 720 Output Total 1600 750 500 Balance -640 -750 220 Weight 86.5 kg Intake: Oral 960 720 Output: Urine 1600 750 500 Other: Voiding Method Diaper Diaper Diaper Incontinent Incontinent Incontinent External Catheter External Catheter External Catheter # Voids 1 # Bowel Movements 1 2 - Labs CBC & Chem 7: 07/15/24 07:00 07/15/24 07:00 Labs: Abnormal Lab Results - Last 24 Hours (Table) 07/14/24 07/14/24 07/15/24 Range/Units 16:47 19:51 06:17 WBC (3.8-10.6) k/uL RBC (3.80-5.40) m/uL Neutrophils # (1.3-7.7) k/uL Lymphocytes # (1.0-4.8) k/uL Chloride (98-107) mmol/L Carbon Dioxide (22-30) mmol/L BUN (7-17) mg/dL POC Glucose (mg/dL) 181 H 174 H 117 H (70-110) mg/dL ALT (4-34) U/L Total Protein (6.3-8.2) g/dL Albumin (3.5-5.0) g/dL 07/15/24 07/15/24 Range/Units 07:00 07:00 WBC 13.9 H (3.8-10.6) k/uL RBC 3.66 L (3.80-5.40) m/uL Neutrophils # 12.7 H (1.3-7.7) k/uL Lymphocytes # 0.6 L (1.0-4.8) k/uL Chloride 92 L (98-107) mmol/L Carbon Dioxide 46 H* (22-30) mmol/L BUN 31 H (7-17) mg/dL POC Glucose (mg/dL) (70-110) mg/dL ALT 35 H (4-34) U/L Total Protein 5.3 L (6.3-8.2) g/dL Albumin 3.0 L (3.5-5.0) g/dL
[2024-07-15 16:34] LABS: Glucose,Whole Blood 158 mg/dL (70-110)
[2024-07-15 20:26] LABS: Glucose,Whole Blood 160 mg/dL (70-110)
[2024-07-16 06:12] LABS: Glucose,Whole Blood 111 mg/dL (70-110)
[2024-07-16 07:06] LABS: Basophils % (A) 0 %; Eosinophils % (A) 0 %; HCT 37.3 % (34.0-46.0); HGB 11.7 gm/dL (11.4-16.0); Hypochromasia Moderate; Lymphocytes # (A) 0.8 k/uL (1.0-4.8); Lymphocytes % (A) 7 %; MCH 30.9 pg (25.0-35.0); MCHC 31.3 g/dL (31.0-37.0); MCV 98.7 fL (80.0-100.0); Mean Platelet Volume 7.5; Monocytes # (A) 0.5 k/uL (0-1.0); Monocytes % (A) 4 %; Neutrophils % (A) 88 %; Platelet Count 255 k/uL (150-450); RBC 3.78 m/uL (3.80-5.40); WBC 12.5 k/uL (3.8-10.6)
[2024-07-16 07:18] LABS: African American GFR (CKD) 61 (>60 ml/min/1.73 sqM); Blood Urea Nitrogen 31 mg/dL (7-17); Calcium 9.2 mg/dL (8.4-10.2); Chloride 92 mmol/L (98-107); Glucose 98 mg/dL (74-99); Magnesium 1.9 mg/dL (1.6-2.3); Non-African American GFR(CKD) 53 (>60 ml/min/1.73 sqM); Potassium 4.1 mmol/L (3.5-5.1); Sodium 138 mmol/L (137-145)
[2024-07-16 07:25] LABS: Anion Gap 3 mmol/L
[2024-07-16 08:19] LABS: Carbon Dioxide 43 mmol/L (22-30)
--- NOTE | 2024-07-16 09:41 | P.PN ---
Subjective Patient is seen in follow-up for acute kidney injury. Renal function improved. On nasal cannula. Denies chest pain or shortness of breath. Admits to good urine output. Vital signs are stable. General: No acute distress. HEENT: Head exam is unremarkable. On nasal cannula. LUNGS: Scattered rhonchi. HEART: Rate and Rhythm are regular. ABDOMEN: No distention. EXTREMITITES: No edema. Objective - Vital Signs Vital signs: Vital Signs Temp 98 F 07/16/24 00:00 Pulse 76 07/16/24 08:50 Resp 18 07/15/24 20:00 BP 128/70 07/16/24 04:00 Pulse Ox 99 07/15/24 20:00 FiO2 35 07/16/24 03:09 Intake & Output 07/15/24 07/16/24 07/16/24 18:59 06:59 18:59 Intake Total 960 540 180 Output Total 500 400 200 Balance 460 140 -20 Weight 86 kg Intake: Oral 960 540 180 Output: Urine 500 400 200 Other: Voiding Method Diaper Diaper Incontinent Incontinent External Catheter External Catheter # Voids 5 # Bowel Movements 2 - Labs CBC & Chem 7: 07/16/24 06:28 07/16/24 06:28 Labs: Abnormal Lab Results - Last 24 Hours (Table) 07/15/24 07/15/24 07/16/24 Range/Units 16:27 20:25 06:10 WBC (3.8-10.6) k/uL RBC (3.80-5.40) m/uL Neutrophils # (1.3-7.7) k/uL Lymphocytes # (1.0-4.8) k/uL Chloride (98-107) mmol/L Carbon Dioxide (22-30) mmol/L BUN (7-17) mg/dL POC Glucose (mg/dL) 158 H 160 H 111 H (70-110) mg/dL 07/16/24 07/16/24 Range/Units 06:28 06:28 WBC 12.5 H (3.8-10.6) k/uL RBC 3.78 L (3.80-5.40) m/uL Neutrophils # 11.0 H (1.3-7.7) k/uL Lymphocytes # 0.8 L (1.0-4.8) k/uL Chloride 92 L (98-107) mmol/L Carbon Dioxide 43 H* (22-30) mmol/L BUN 31 H (7-17) mg/dL POC Glucose (mg/dL) (70-110) mg/dL Assessment and Plan Plan: Assessment: 1. Acute kidney injury secondary to hemodynamic ATN. Baseline creatinine 0.8 from April 2024 and peaked at 2.05 this admission -1.01 today. Nonoliguric. No hydronephrosis noted on kidney ultrasound. Left kidney atrophic. 2. Hyperkalemia secondary to acute kidney injury, losartan and potassium supplementation. Resolved. Subsequently became hypokalemic and required replacement. 3. Acute on chronic hypoxic and hypercapnic respiratory failure. Improved. Now on nasal cannula. 4. Pneumonia s/p antibiotics. 5. History of right upper lobe lobectomy. 6. Chronic diastolic CHF with moderate tricuspid regurgitation and severe pulmonary hypertension. 7. Hypernatremia from lack of oral water intake. Status post D5W. Resolved. 8. Hypercalcemia. Calcium level 9.2 today. Not on any calcium or vitamin D supplementation. Possibly volume contraction. PTH elevated at 130 concerning for primary hyperparathyroidism - parathyroid scan negative for adenoma. Vitamin D 8.5. PJ level 17. Calcitriol level 34. [place] lambda light chain ratio not elevated. Sensipar discontinued. 9. Metabolic alkalosis secondary to volume contraction and partially compensatory for underlying respiratory acidosis. On IV Lasix and Diamox. Improving. Plan: Maintain Diamox for now. Change Lasix from IV to oral. Check chest x-ray. Repeat labs in the morning.
[2024-07-16 11:27] LABS: Glucose,Whole Blood 103 mg/dL (70-110)
--- NOTE | 2024-07-16 12:07 | P.PN ---
Subjective Progress Note Date: 07/16/24 Patient is a pleasant 78-year-old female with past medical history of multiple medical problems as below. Patient presents because of altered mental status. Patient cannot provide information it was obtained from the family at bedside and records. As per and family patient was not using her BiPAP and she was sleeping most of the time yesterday around 22 hours, family got concerned and brought her to the hospital today. Patient is completely confused and cannot provide information and she has evidence of acute COPD exacerbations and she was admitted to the intensive care unit for this reason. No other information is available at now. On admission: Patient was mildly hypothermic 97.2, she is breathing fast at 30, tachycardic but blood pressure stable at 136/69. Labs reviewed showing WBC 21,000, rest of CBC is unremarkable Sodium 139, potassium 5.4. Creatinine is 1.1 pH is low 7.1, pCO2 is elevated at 98 and low pO2 at 80. Liver enzymes unremarkable Chest x-ray showing right lower lobe infiltrate. Patient is DNR and DNI and this confirmed with the family. Patient is going to be admitted to the ICU CT of brain: no acute process. Moderate to severe chronic small vessel ischemic disease. CT of chest: extensive consolidation and collapse pf the right mid and lower lung and fluid collection in RUL 07/02. Patient seen and examined. Currently on BiPAP. States she feels sligh tly better. Gets short of breath on minimal exertion. Labs done this morning showed WBC 13.3, hemoglobin 13, platelet count 296 sodium 143, potassium 6.1, BUN 50, creatinine 1.72. 07/03. Patient seen and examined. Patient currently on BiPAP, states she is doing slightly better. Currently alert and oriented to self and place. 2D echo done showed LVEF of 65 to 70%, mild to moderate increased left ventricular wall thickness, severe right ventricle dilatation with mild right ventricular hypok inesis, RVSP of 68, moderate tricuspid regurgitation. 07/04. Patient seen and examined. Currently on BiPAP. Continues to be lethargic. 07/05. Patient seen and examined. Patient is lethargic but arousable, answering questions. Continues to be on BiPAP.Blood work done this morning showed WBC 8.5, hemoglobin 10.4 sodium 141, potassium 4.1, BUN 40, creatinine 1.18. 07/06. Patient seen and examined. Continues to be on BiPAP. Blood work done this morning showed WBCs 6.8, hemoglobin 10.7, sodium 140, potassium 3.5, CO2 41, BUN 44, creatinine 1.09. Continues to be lethargic. 07/07. Patient was seen and examined today. Was on liter oxygen in the morning, required BiPAP overnight. WBCs 15.8, hemoglobin 11.4, platelets 236. Sodium is low 129, potassium 4.1, CO2 39, creatinine 1.37. Currently on Zosyn per pulmonary. Nephrology following. 07/08. Patient was seen and examined today. Patient was transferred out of ICU yesterday. Currently on BiPAP, FiO2 to 35%. Zosyn discontinued per infectious disease. On Solu-Medrol, decreased dose. Procalcitonin 0.09. WBCs 19.3 likely secondary to steroids, hemoglobin 11.5, platelet 208. CO2 39, creatinine 1.36. Blood cultures negative so far. 07/09. Patient was seen and examined today. She is seen sitting up in bed with BiPAP, awake and alert, no acute distress. She states that she is feeling well. Currently on BiPAP, FiO2 35%. WBCs 18.6 - likely secondary to steroids, hemoglobin 11.7, platelet 182. 07/10. Patient was seen and examined today. Required BiPAP overnight, currently on 3 L oxygen saturating 93%. Patient family at bedside, patient up in the chair, anticipate subacute rehab given patient appears debilitated and weak. Blood culture negative so far. WBCs 19.4, hemoglobin 11.7, platelet 213. BUN showed sodium 135, potassium 3.9, creatinine 1.13 trending down. BUN 31. Pulmonary following. Patient currently on IV Lasix to 24-hour for fluid overload. Also on acetazolamide due to contraction alkalosis. Also on inhalers/bronchodilator protocol. Patient at baseline uses 2 L oxygen. Noncompliant to CPAP therapy. PT/OT consulted. 07/11. Patient was seen and examined today. She is resting comfortably in bed. Required BiPAP overnight at 16/6 35%, currently on 2 L nasal cannula. WBCs 20 .3, hemoglobin 12.1, platelet 195, BUN 35, creatinine 1.1, sodium 139, potassium 3.5. On inhaler/bronchodilator protocol. Also on acetazolamide due to contraction alkalosis. 07/12. Patient was seen and examined today. She is resting comfortably in bed. Currently on 2 L nasal cannula. WBCs 18, downtrending. On inhaler/bronchodilator protocol. Also on acetazolamide due to contraction alkalosis. PT/OT consulted. 07/13. Patient was seen and examined today. Resting comfortably in bed on 2 L nasal cannula. WBC 17.1, hemoglobin 11.5, platelet 265, sodium 138, potassium 3.1, chloride 90, CO2 45, BUN 35, creatinine 1.24. Maintained on acetazolamide due to contraction alkalosis. 07/14. Patient seen and examined resting comfortably in bed on 2 L nasal cannula. WBCs 18.4, hemoglobin 11.6, platelets 280, sodium 135, potassium 3.7, chloride 89, CO2 43, BUN 36, creatinine 1.07. Maintained on acetazolamide. 07/15. Patient seen and examined today, remains on 2 L oxygen, saturating 98 to 100%. Afebrile. Heart rate 88, respiratory rate 18, blood pressure 126/63. Encouraged ambulation with assistance. Daughter at bedside. WBCs trending down 13.9 today. Hemoglobin stable 11.4. Platelets normal. Sodium 138, potassium 4.7, chloride 92, CO2 went up to 46 today as compared to 43. Creatinine stable 1.04. Remains on IV Lasix and Diamox. Pulmonary and nephrology following. Infectious disease following. 07/16. Patient seen and examined today, on 3 L nasal cannula. WBCs 12.5, hemoglobin 11.7, sodium 138, potassium 4.1, chloride 92, CO2 43, creatinine 1.01. Remains on IV Lasix and Diamox. Pulmonology, nephrology, infectious disease following. Pending authorization for subacute rehab. REVIEW OF SYSTEMS CONSTITUTIONAL: Denies fever or chills. CARDIOVASCULAR: Denies chest pain, palpitations or syncope. PULMONARY: Denies shortness of breath, cough, sore throat. GASTROINTESTINAL: Denies nausea, vomiting, diarrhea, abdominal pain. : Denies dysuria, urgency, frequency. Extremities: Denies muscle/joint pain or swelling. NEUROLOGICAL: Denies headaches, weakness, and numbness. PHYSICAL EXAMINATION GENERAL: A&O x3, NAD. HEENT: EOMI, sclerae anicteric, moist mucous membranes. Neck: Supple, nontender, no JVD. CARDIOVASCULAR: S1-S2 present; no murmurs, rubs, or gallops. PULMONARY: Equal breath sounds bilaterally; mild expiratory wheezing, no crackles. ABDOMEN: Soft, nontender, nondistended, normoactive bowel sounds; no guarding or rebound tenderness. MUSCULOSKELETAL: Normal ROM; intact peripheral pulses; no edema, cyanosis, or clubbing. Skin: Warm; no rash. DVT prophylaxis: subcutaneous Lovenox Assessment: Acute COPD exacerbation Acute hypoxic hypercapnic respiratory failure Acute on chronic diastolic CHF Acute respiratory acidosis Contraction alkalosis secondary to diuresis Hypochloremia due to contraction alkalosis Hypokalemia Acute kidney injury - improving Hypertension Pulmonary hypertension Chronic hypoxic respiratory failure; 2 L nasal cannula at baseline Chronic atrial fibrillation Hyperlipidemia History of obstructive sleep apnea; noncompliant with CPAP History of coronary artery disease status post cardiac catheterization; 2D echo done showed LVEF of 65 to 70%, mild to moderate increased left ventricular wall thickness, severe right ventricle dilatation with mild right ventricular hypokinesis, RVSP of 68 Moderate tricuspid regurgitation Plan: Monitor vital signs Monitor CBC Monitor CMP Continue telemetry monitoring Continue bronchopulmonary hygiene Continue with BiPAP as needed Continue with nasal cannula 2 L, baseline oxygen requirements Strict I's and O's, daily weights Acetazolamide 250 mg twice daily Lasix 40 mg daily Sensipar 30 mg once daily, discontinue upon discharge as per nephrology Nephrology following Pulmonary following ID following PT/OT consulted - expect subacute rehab Labs and medication were reviewed. Continue same treatment. Continue with symptomatic treatment. Resume home medication. Monitor labs and vitals. DVT and GI prophylaxis. Further recommendations as per clinical course of the patient. Dr. Morteza MD I have performed a history and physical examination and medical decision making of this patient, discussed the same with the the resident, and agree with the assessment and plan as written. I performed brief physical exam. Objective - Vital Signs Vital signs: Vital Signs Temp 98 F 07/16/24 00:00 Pulse 76 07/16/24 08:50 Resp 18 07/15/24 20:00 BP 128/70 07/16/24 04:00 Pulse Ox 99 07/15/24 20:00 FiO2 35 07/16/24 03:09 Intake & Output 07/15/24 07/16/24 07/16/24 18:59 06:59 18:59 Intake Total 960 540 180 Output Total 500 400 200 Balance 460 140 -20 Weight 86 kg Intake: Oral 960 540 180 Output: Urine 500 400 200 Other: Voiding Method Diaper Diaper Incontinent Incontinent External Catheter External Catheter # Voids 5 # Bowel Movements 2 - Labs CBC & Chem 7: 07/16/24 06:28 07/17/24 06:05 Labs: Abnormal Lab Results - Last 24 Hours (Table) 07/15/24 07/15/24 07/16/24 Range/Units 16:27 20:25 06:10 WBC (3.8-10.6) k/uL RBC (3.80-5.40) m/uL Neutrophils # (1.3-7.7) k/uL Lymphocytes # (1.0-4.8) k/uL Chloride (98-107) mmol/L Carbon Dioxide (22-30) mmol/L BUN (7-17) mg/dL POC Glucose (mg/dL) 158 H 160 H 111 H (70-110) mg/dL 07/16/24 07/16/24 Range/Units 06:28 06:28 WBC 12.5 H (3.8-10.6) k/uL RBC 3.78 L (3.80-5.40) m/uL Neutrophils # 11.0 H (1.3-7.7) k/uL Lymphocytes # 0.8 L (1.0-4.8) k/uL Chloride 92 L (98-107) mmol/L Carbon Dioxide 43 H* (22-30) mmol/L BUN 31 H (7-17) mg/dL POC Glucose (mg/dL) (70-110) mg/dL
--- NOTE | 2024-07-16 15:02 | P.PN ---
Subjective Progress Note Date: 07/16/24 Principal diagnosis: Acute on chronic hypoxic and hypercapnic respiratory failure secondary to COPD exacerbation On today's evaluation of 07/10/2024, the patient is being seen for a follow-up. He is currently on 3 Suboxone by nasal cannula with a pulse ox of 93%. Most recent chest x-ray from 07/07/2024 showed resolving bibasilar atelectasis changes. The patient is calm and comfortable. Profoundly weak and debilitated. The white circles of 19.4 with a hemoglobin 1.7 and a platelet count of 230. BUN 31 with a creatinine 1.1 and a sodium level of 135. The patient is known to have advanced COPD and he has chronic hypoxic respiratory failure. He is also known to have obstructive sleep apnea. He is utilizing a BiPAP pressure of 16 over 6 cm of water with an FiO2 of 35% overnight and oxygen between 2 and 3 L/min nasal cannula in the morning. The patient remains on Lasix 40 mg IV every 24 hours. Remains on DuoNeb nebulized treatments [id number]. No antibiot ic coverage for now. He remains on Lovenox 40 mg subcu for DVT prophylaxis. Blood cultures from this current admission has been negative. He typically uses oxygen at 2 L nasal cannula on outpatient basis. Not compliant to home CPAP therapy. He is arousable and communicating. No new complaints otherwise for now. 07/11/2024, the patient is being seen for a follow-up. No new complaints.The BiP AP overnight and the patient is currently on oxygen at 3 L/min nasal cannula. Remains on the same respiratory medication regimen. The patient remains on DuoNeb, budesonide and Pulmicort nebulized treatments twice a day and the patient is also on IV Solu-Medrol 40 mg every 8 hours. Labs from today shows a white cell count of 20 with a hemoglobin of 12.1 and a platelet count of 195. BUN 35 with a creatinine 1.1 and the patient's renal function is improved and a sodium levels at 139 and serum bicarb is at 38. Remains on Lovenox for DVT prophylaxis. Remains on Lasix 40 mg IV every 24 hours. Remains on Diamox to 50 mg p.o. twice a day to counteract metabolic alkalosis. No other complaints. She is able to sit up in the chair. Overall condition is quite debilitated the patient remains quite weak. A follow-up chest x-ray was done and showed some ongoing issues with cardiomegaly. The patient also has some mild pulm vas congestion. On 07/12/2024, the patient for a follow-up. Patient is calm and comfortable. Has no specific complaints. Tolerating the BiPAP overnight. No chest pain. No shortness of breath. She is still on IV Solu-Medrol and this is going to be transition to prednisone burst taper. The patient remains on DuoNeb treatments [id number]. Patient remains on performance of Pulmicort updrafts. WBC count is 18 with a hemoglobin of 0.8 and a platelet count of 228. No chest pain. No angina. No palpitations. Procalcitonin level is normal. Patient remains on Diamox to 50 mg p.o. daily. The patient is also on Lovenox for DVT prophylaxis 40 mg SQ daily and Lasix 40 mg IV every 12 hours. On 07/13/2024, the patient is being seen for a follow-up. The patient is doing well with no specific complaints or any other significant events overnight. Respiratory status is stable and the patient is on 2 L of oxygen by nasal cannula with a pulse ox of 92%. Labs from today shows a white cell count of 17, hemoglobin 11.5, serum bicarbonate 45 and the patient remains on Diamox. Sodium is at 138, potassium is at 3.1. Patient's BUN is 35 with a creatinine of 1.24. The patient received Lasix 40 mg IV every 24 hours. The patient is also on Diamox to 50 mg p.o. twice a day. Patient is also on a prednisone burst taper. 07/14/2024, the patient is being seen for a follow-up. Resting comfortably in bed. Remains profoundly weak. Unable to maintain or carry her weight with her lower extremities. She needs help for activity. No new complaints. She rem ains on Lasix 40 mg every 24 hours. She remains on Diamox. She is on a prednisone burst taper. She remains on bronchodilators. The white cell count is 18 with a hemoglobin 11.6 and a platelet count of 280. Serum bicarb is at 43, sodium is at 135, BUN 36 with a creatinine of 1.07. Oxygenation remains unchanged and the patient remains on 2 L of O2 nasal cannula with a pulse ox of 96%. Limited cough. No significant sputum production. 07/15/2024, the patient is being seen for a follow-up. Uneventful evening. Calm and comfortable. No new complaints. Resting comfortably in bed. Currently on 2 L of oxygen by nasal cannula. Medications remain unchanged. The patient is currently on Lasix 40 mg IV every 24 hours and the patient remains on Diamox. The patient is on a prednisone burst taper starting with 40 mg. Serum bicarb is 46, white cell count of 15.9 with a hemoglobin of 11.4 and a platelet count of 246. No chest pain. No significant shortness of breath. Profoundly weak and debilitated. Patient was seen today on 07/16/2024, seen for follow-up on her COPD. Patient is waiting for possible placement, in the meantime she is still receiving bronchodilators, diuretics in the form of Lasix and Diamox, still on prednisone burst and taper, remains on bronchodilators for her underlying COPD. Patient feels generally weak, she definitely needs rehab placement. WBC count is 12.5 hemoglobin 11.7 basic metabolic profile is normal bicarb is 43 BUN is 31 creatinine 1.01 Objective - Vital Signs Vital signs: Vital Signs Temp 97.8 F 07/16/24 08:00 Pulse 90 07/16/24 14:00 Resp 18 07/16/24 14:00 BP 105/47 07/16/24 12:00 Pulse Ox 98 07/16/24 12:00 FiO2 35 07/16/24 03:09 Intake & Output 07/15/24 07/16/24 07/16/24 18:59 06:59 18:59 Intake Total 960 540 360 Output Total 500 400 200 Balance 460 140 160 Weight 86 kg Intake: Oral 960 540 360 Output: Urine 500 400 200 Other: Voiding Method Diaper Diaper Diaper Incontinent Incontinent Incontinent External Catheter External Catheter External Catheter # Voids 5 # Bowel Movements 2 - Exam HYSICAL EXAMINATION: GENERAL: revealed a 78-year-old female in no distress, On 3 L nasal cannula with O2 saturation 98% HEENT: Pupils are round and equally reacting to light. EOMI. No scleral icterus. No conjunctival pallor. Normocephalic, atraumatic. No pharyngeal erythema. No thyromegaly. CARDIOVASCULAR: S1 and S2 present. No murmurs, rubs, or gallops. PULMONARY: Diminished breath sound bilaterally no crackles rhonchi or wheezes ABDOMEN: Soft, nontender, nondistended, normoactive bowel sounds. No palpable organomegaly. MUSCULOSKELETAL: No joint swelling or deformity. EXTREMITIES: No cyanosis, clubbing, or pedal edema. NEUROLOGICAL: Alert and oriented x 3 no gross focal deficit SKIN: No rashes. - Labs CBC & Chem 7: 07/16/24 06:28 07/16/24 06:28 Labs: Abnormal Lab Results - Last 24 Hours (Table) 07/15/24 07/15/24 07/16/24 Range/Units 16:27 20:25 06:10 WBC (3.8-10.6) k/uL RBC (3.80-5.40) m/uL Neutrophils # (1.3-7.7) k/uL Lymphocytes # (1.0-4.8) k/uL Chloride (98-107) mmol/L Carbon Dioxide (22-30) mmol/L BUN (7-17) mg/dL POC Glucose (mg/dL) 158 H 160 H 111 H (70-110) mg/dL 07/16/24 07/16/24 Range/Units 06:28 06:28 WBC 12.5 H (3.8-10.6) k/uL RBC 3.78 L (3.80-5.40) m/uL Neutrophils # 11.0 H (1.3-7.7) k/uL Lymphocytes # 0.8 L (1.0-4.8) k/uL Chloride 92 L (98-107) mmol/L Carbon Dioxide 43 H* (22-30) mmol/L BUN 31 H (7-17) mg/dL POC Glucose (mg/dL) (70-110) mg/dL Assessment and Plan Assessment: Impression: Acute on chronic hypoxemic and hypercapnic respiratory failure, secondary to acute COPD exacerbation and extensive of right sided healthcare associated pneumonia. Acute hypercapnic encephalopathy, resolved Right lung atelectasis, resolved Severe chronic obstructive pulmonary disease Chronic hypoxemic respiratory failure, secondary to above Chronic metabolic alkalosis, currently on Diamox Obstructive sleep apnea, reportedly noncompliant with home CPAP machine History of heart failure, with borderline mildly impaired left ventricular ejection fraction of 45 to 50% Pulmonary hypertension Chronic atrial fibrillation, anticoagulated with Eliquis Hyperlipidemia Hypertension Recommendation: Continue bronchodilators Continue prednisone burst and taper Continue Lasix and Diamox Titrate oxygen accordingly Continue BiPAP as needed 16/6/35% Continue incentive spirometry Continue physical therapy and Occupational Therapy Patient will definitely need placement in rehab facility CODE STATUS remains DNR Time with Patient: Less than 30
[2024-07-16 16:11] LABS: Glucose,Whole Blood 139 mg/dL (70-110)
[2024-07-16 20:04] LABS: Glucose,Whole Blood 208 mg/dL (70-110)
[2024-07-17 06:07] LABS: Glucose,Whole Blood 108 mg/dL (70-110)
[2024-07-17 07:20] LABS: African American GFR (CKD) 61 (>60 ml/min/1.73 sqM); Blood Urea Nitrogen 31 mg/dL (7-17); Calcium 9.5 mg/dL (8.4-10.2); Chloride 92 mmol/L (98-107); Glucose 91 mg/dL (74-99); Magnesium 1.9 mg/dL (1.6-2.3); Non-African American GFR(CKD) 53 (>60 ml/min/1.73 sqM); Potassium 4.1 mmol/L (3.5-5.1); Sodium 139 mmol/L (137-145)
[2024-07-17 07:27] LABS: Anion Gap 4 mmol/L
[2024-07-17 07:34] LABS: Carbon Dioxide 43 mmol/L (22-30)
[2024-07-17 08:06] VITALS: RESP 20; TEMP 98.2
[2024-07-17] MEDS: FUROSEMIDE 40 MG TAB PO SCH (08:14)
--- NOTE | 2024-07-17 08:41 | XR ---
EXAMINATION TYPE: XR chest 1V DATE OF EXAM: 07/17/2024 HISTORY: Shortness of breath. COMPARISON: 07/11/2024 TECHNIQUE: Single view of the chest is submitted. FINDINGS: Demonstrated are scattered senescent parenchymal change. Improving aeration right lung base with residual infiltrate and/or atelectasis present. The heart is stable. Hilar and mediastinal structures are within normal limits. Degenerative changes are seen of the dorsal spine. IMPRESSION: 1. Improving aeration right lung base with residual infiltrate and/or atelectasis present.
--- NOTE | 2024-07-17 11:21 | P.PN ---
Subjective Patient is seen in follow-up for acute kidney injury. Renal function improved. On nasal cannula. Denies chest pain or shortness of breath. Admits to good urine output. Vital signs are stable. General: No acute distress. HEENT: Head exam is unremarkable. On nasal cannula. LUNGS: Scattered rhonchi. HEART: Rate and Rhythm are regular. ABDOMEN: No distention. EXTREMITITES: No edema. Objective - Vital Signs Vital signs: Vital Signs Temp 98.2 F 07/17/24 08:04 Pulse 76 07/17/24 09:01 Resp 20 07/17/24 08:04 BP 116/75 07/17/24 08:04 Pulse Ox 96 07/17/24 08:04 FiO2 35 07/17/24 04:21 Intake & Output 07/16/24 07/17/24 07/17/24 18:59 06:59 18:59 Intake Total 580 180 Output Total 200 800 200 Balance 380 -800 -20 Weight 85.5 kg Intake: IV 40 0.9 @ KVO 40 Oral 540 180 Output: Urine 200 800 200 Other: Voiding Method Diaper Diaper Diaper Incontinent Incontinent Incontinent External Catheter External Catheter External Catheter - Labs CBC & Chem 7: 07/16/24 06:28 07/17/24 06:05 Labs: Abnormal Lab Results - Last 24 Hours (Table) 07/16/24 07/16/24 07/17/24 Range/Units 16:09 20:02 06:05 Chloride 92 L (98-107) mmol/L Carbon Dioxide 43 H* (22-30) mmol/L BUN 31 H (7-17) mg/dL POC Glucose (mg/dL) 139 H 208 H (70-110) mg/dL Assessment and Plan Plan: Assessment: 1. Acute kidney injury secondary to hemodynamic ATN. Baseline creatinine 0.8 from April 2024 and peaked at 2.05 this admission -1.02 today. Nonoliguric. No hydronephrosis noted on kidney ultrasound. Left kidney atrophic. 2. Hyperkalemia secondary to acute kidney injury, losartan and potassium supplementation. Resolved. Subsequently became hypokalemic and required replacement. 3. Acute on chronic hypoxic and hypercapnic respiratory failure. Improved. Now on nasal cannula. 4. Pneumonia s/p antibiotics. 5. History of right upper lobe lobectomy. 6. Chronic diastolic CHF with moderate tricuspid regurgitation and severe pulmonary hypertension. 7. Hypernatremia from lack of oral water intake. Status post D5W. Resolved. 8. Hypercalcemia. Calcium level 9.5 today. Not on any calcium or vitamin D supplementation. Possibly volume contraction. PTH elevated at 130 concerning for primary hyperparathyroidism - parathyroid scan negative for adenoma. Vitamin D 8.5. PJ level 17. Calcitriol level 34. [place] lambda light chain ratio not elevated. Sensipar discontinued. 9. Metabolic alkalosis secondary to volume contraction and partially compensa tory for underlying respiratory acidosis. On po Lasix and Diamox. Also on prednisone. Plan: Maintain Diamox for now. Maintain oral Lasix. Repeat BMP and magnesium level 2 to 3 days postdischarge. Follow-up outpatient in 1 week. Plan for discharge to subacute rehab.
[2024-07-17 11:23] LABS: Glucose,Whole Blood 110 mg/dL (70-110)
[2024-07-17 12:06] VITALS: BP 109/58; PULSE 92
--- NOTE | 2024-07-17 12:08 | P.DS ---
Providers Date of admission: 07/01/24 14:15 Attending physician: Adarsh Skelton MD Consults: 07/01/24 14:13 Consult Physician Stat Consulting Provider: Sixto Welch Consult Reason/Comments: bipap, pneumonia, hypercapneic resp failure Do you want consulting provider notified?: Already Contacted 07/02/24 06:55 Consult Physician Urgent Consulting Provider: Jayy Horton Consult Reason/Comments: Hyperkalemia Do you want consulting provider notified?: Yes, Notify in am 07/02/24 11:09 Consult Physician Routine Consulting Provider: Wyatt Quan Consult Reason/Comments: Sepsis: Pneumonia Do you want consulting provider notified?: Yes Primary care physician: Kimberly Molina Hospital Course: Discharge diagnoses; Acute COPD exacerbation Acute hypoxic hypercapnic respiratory failure Acute on chronic diastolic CHF Acute respiratory acidosis Contraction alkalosis secondary to diuresis Hypochloremia due to contraction alkalosis Hypokalemia Acute kidney injury - improving Hypertension Pulmonary hypertension Chronic hypoxic respiratory failure; 2 L nasal cannula at baseline Chronic atrial fibrillation Hyperlipidemia History of obstructive sleep apnea; noncompliant with CPAP History of coronary artery disease status post cardiac catheterization; 2D echo done showed LVEF of 65 to 70%, mild to moderate increased left ventricular wall thickness, severe right ventricle dilatation with mild right ventricular hypokinesis, RVSP of 68 Moderate tricuspid regurgitation Plan: Monitor vital signs Monitor CBC Monitor CMP Continue telemetry monitoring Continue bronchopulmonary hygiene Continue with BiPAP as needed Continue with nasal cannula 2 L, baseline oxygen requirements Strict I's and O's, daily weights Acetazolamide 250 mg twice daily Lasix 40 mg daily Sensipar 30 mg once daily, discontinue upon discharge as per nephrology Hospital course; Patient is a pleasant 78-year-old female with past medical history of multiple medical problems as below. Patient presents because of altered mental status. Patient cannot provide information it was obtained from the family at bedside and records. As per and family patient was not using her BiPAP and she was sleeping most of the time yesterday around 22 hours, family got concerned and brought her to the hospital today. Patient is completely confused and cannot provide information and she has evidence of acute COPD exacerbations and she was admitted to the intensive care unit for this reason. No other information is available at now. On admission: Patient was mildly hypothermic 97.2, she is breathing fast at 30, tachycardic but blood pressure stable at 136/69. Labs reviewed showing WBC 21,000, rest of CBC is unremarkable Sodium 139, potassium 5.4. Creatinine is 1.1 pH is low 7.1, pCO2 is elevated at 98 and low pO2 at 80. Liver enzymes unremarkable Chest x-ray showing right lower lobe infiltrate. Patient is DNR and DNI and this confirmed with the family. Patient is going to be admitted to the ICU CT of brain: no acute process. Moderate to severe chronic small vessel ischemic disease. CT of chest: extensive consolidation and collapse pf the right mid and lower lung and fluid collection in RUL 07/02. Patient seen and examined. Currently on BiPAP. States she feels slightly better. Gets short of breath on minimal exertion. Labs done this morning showed WBC 13.3, hemoglobin 13, platelet count 296 sodium 143, potassium 6.1, BUN 50, creatinine 1.72. 07/03. Patient seen and examined. Patient currently on BiPAP, states she is doing slightly better. Currently alert and oriented to self and place. 2D echo done showed LVEF of 65 to 70%, mild to moderate increased left ventricular wall thickness, severe right ventricle dilatation with mild right ventricular hypokinesis, RVSP of 68, moderate tricuspid regurgitation. 07/04. Patient seen and examined. Currently on BiPAP. Continues to be lethargic. 07/05. Patient seen and examined. Patient is lethargic but arousable, answering questions. Continues to be on BiPAP.Blood work done this morning showed WBC 8.5, hemoglobin 10.4 sodium 141, potassium 4.1, BUN 40, creatinine 1.18. 07/06. Patient seen and examined. Continues to be on BiPAP. Blood work done this morning showed WBCs 6.8, hemoglobin 10.7, sodium 140, potassium 3.5, CO2 41, BUN 44, creatinine 1.09. Continues to be lethargic. 07/07. Patient was seen and examined today. Was on liter oxygen in the morning, required BiPAP overnight. WBCs 15.8, hemoglobin 11.4, platelets 236. Sodium is low 129, potassium 4.1, CO2 39, creatinine 1.37. Currently on Zosyn per pulmonary. Nephrology following. 07/08. Patient was seen and examined today. Patient was transferred out of ICU yesterday. Currently on BiPAP, FiO2 to 35%. Zosyn discontinued per infectious disease. On Solu-Medrol, decreased dose. Procalcitonin 0.09. WBCs 19.3 likely secondary to steroids, hemoglobin 11.5, platelet 208. CO2 39, creatinine 1.36. Blood cultures negative so far. 07/09. Patient was seen and examined today. She is seen sitting up in bed with BiPAP, awake and alert, no acute distress. She states that she is feeling well. Currently on BiPAP, FiO2 35%. WBCs 18.6 - likely secondary to steroids, hemoglobin 11.7, platelet 182. 07/10. Patient was seen and examined today. Required BiPAP overnight, currently on 3 L oxygen saturating 93%. Patient family at bedside, patient up in the chair, anticipate subacute rehab given patient appears debilitated and weak. Blood culture negative so far. WBCs 19.4, hemoglobin 11.7, platelet 213. BUN showed sodium 135, potassium 3.9, creatinine 1.13 trending down. BUN 31. Pulmonary following. Patient currently on IV Lasix to 24-hour for fluid overload. Also on acetazolamide due to contraction alkalosis. Also on inhalers/bronchodilator protocol. Patient at baseline uses 2 L oxygen. Noncompliant to CPAP therapy. PT/OT consulted. 07/11. Patient was seen and examined today. She is resting comfortably in bed. Required BiPAP overnight at 16/6 35%, currently on 2 L nasal cannula. WBCs 20.3, hemoglobin 12.1, platelet 195, BUN 35, creatinine 1.1, sodium 139, potassium 3.5. On inhaler/bronchodilator protocol. Also on acetazolamide due to contraction alkalosis. 07/12. Patient was seen and examined today. She is resting comfortably in bed. Currently on 2 L nasal cannula. WBCs 18, downtrending. On inhaler/bronchodilator protocol. Also on acetazolamide due to contraction alkalosis. PT/OT consulted. 07/13. Patient was seen and examined today. Resting comfortably in bed on 2 L nasal cannula. WBC 17.1, hemoglobin 11.5, platelet 265, sodium 138, potassium 3.1, chloride 90, CO2 45, BUN 35, creatinine 1.24. Maintained on acetazolamide due to contraction alkalosis. 07/14. Patient seen and examined resting comfortably in bed on 2 L nasal cannula. WBCs 18.4, hemoglobin 11.6, platelets 280, sodium 135, potassium 3.7, chloride 89, CO2 43, BUN 36, creatinine 1.07. Maintained on acetazolamide. 07/15. Patient seen and examined today, remains on 2 L oxygen, saturating 98 to 100%. Afebrile. Heart rate 88, respiratory rate 18, blood pressure 126/63. Encouraged ambulation with assistance. Daughter at bedside. WBCs trending down 13.9 today. Hemoglobin stable 11.4. Platelets normal. Sodium 138, potassium 4.7, chloride 92, CO2 went up to 46 today as compared to 43. Creatinine stable 1.04. Remains on IV Lasix and Diamox. Pulmonary and nephrology following. Infectious disease following. 07/16. Patient seen and examined today, on 3 L nasal cannula. WBCs 12.5, hemoglobin 11.7, sodium 138, potassium 4.1, chloride 92, CO2 43, creatinine 1.01. Remains on IV Lasix and Diamox. Pulmonology, nephrology, infectious disease following. Pending authorization for subacute rehab. 07/17 - Patient seen at bedside today. She has a blood pressure of 116/75, heart rate of 90, currently has an oxygen saturation of 96% on 2 L nasal cannula. She is using 40 mg daily Lasix p.o., 250 mg Diamox p.o. twice daily. Pulmonology, nephrology, infectious disease all following. Chest x-ray completed on 07/17 shows improving aeration of the right lung base with residual infiltrate and/or atelectasis present. Patient has been approved for discharge to subacute rehab. Will follow-up with physician if cleared for for discharge. PHYSICAL EXAMINATION: GENERAL: The patient is alert and oriented x3, not in any acute distress. Well developed, well nourished. HEENT: Pupils are round and equally reacting to light. EOMI. No scleral icterus. No conjunctival pallor. Normocephalic, atraumatic. No pharyngeal erythema. No thyromegaly. CARDIOVASCULAR: S1 and S2 present. No murmurs, rubs, or gallops. PULMONARY: Chest is clear to auscultation, no wheezing or crackles. ABDOMEN: Soft, nontender, nondistended, normoactive bowel sounds. No palpable organomegaly. MUSCULOSKELETAL: No joint swelling or deformity. EXTREMITIES: No cyanosis, clubbing, or pedal edema. NEUROLOGICAL: Gross neurological examination did not reveal any focal deficits. SKIN: No rashes. Dictation was produced using [employer] dictation software. please excuse any grammatical, word or spelling errors. Dr. Morteza MD I have performed a history and physical examination and medical decision making of this patient, discussed the same with the the resident, and agree with the assessment and plan as written. I performed brief physical exam. Patient Condition at Discharge: Serious Plan - Discharge Summary New Discharge Prescriptions: New acetaZOLAMIDE [Diamox] 250 mg PO BID tab bisacodyL [Dulcolax] 10 mg RECTAL HS PRN suppositor PRN Reason: Constipation Ipratropium-Albuterol Nebulize [Duoneb 0.5 mg-3 mg/3 ml Soln] 3 ml INHALATION RT-Q2H PRN each PRN Reason: Shortness Of Breath Or Wheezing Nystatin 100,000 Unit/gm Powd [Mycostatin Powder] 1 applic TOPICAL TID PRN each PRN Reason: Rash INSULIN ASPART (NovoLOG) [NovoLOG (formulary)] 0 unit SQ ACHS each busPIRone HCl [Buspar] 10 mg PO BID 30 Days #60 tab predniSONE See Taper PO DIRECTED 12 Days #30 tab Ipratropium-Albuterol Nebulize [Duoneb 0.5 mg-3 mg/3 ml Soln] 3 ml INHALATION RT-QID each Furosemide [Lasix] 40 mg PO DAILY tab Formoterol Fumarate [Perforomist] 20 mcg INHALATION RT-BID ml Budesonide [Pulmicort] 1 mg INHALATION RT-BID ml Sennosides-Docusate Sodium [Senokot-S] 1 each PO DAILY tab Acetaminophen Tab [Tylenol] 500 mg PO Q6HR PRN tab PRN Reason: Fever And/ Or Pain Ergocalciferol [Vitamin D2 (1250 Mcg = 18170 Iu)] 1,250 mcg PO Q7D cap Continue Atorvastatin [Lipitor] 40 mg PO DAILY Albuterol Nebulized [Ventolin Nebulized] 2.5 mg INHALATION RT-QID Potassium Chloride ER [K-Dur 10] 10 meq PO DAILY ALPRAZolam [Xanax] 0.25 mg PO DAILY PRN 30 Days #30 tab PRN Reason: Anxiety Changed Apixaban [Eliquis] 2.5 mg PO BID 30 Days #60 tab Discontinued Furosemide [Lasix] 20 mg PO DAILY Budesonide-Formot 160-4.5 Mcg [Symbicort 160-4.5 Mcg Inhaler] 2 puff INHALATION RT-BID 30 Days #1 each Losartan [Cozaar] 25 mg PO DAILY Discharge Medication List Atorvastatin [Lipitor] 40 mg PO DAILY 03/18/24 [History] Albuterol Nebulized [Ventolin Nebulized] 2.5 mg INHALATION RT-QID 07/01/24 [History] Potassium Chloride ER [K-Dur 10] 10 meq PO DAILY 07/01/24 [History] ALPRAZolam [Xanax] 0.25 mg PO DAILY PRN 30 Days #30 tab 07/17/24 [Rx] Acetaminophen Tab [Tylenol] 500 mg PO Q6HR PRN tab 07/17/24 [Rx] Apixaban [Eliquis] 2.5 mg PO BID 30 Days #60 tab 07/17/24 [Rx] Budesonide [Pulmicort] 1 mg INHALATION RT-BID ml 07/17/24 [Rx] Ergocalciferol [Vitamin D2 (1250 Mcg = 47450 Iu)] 1,250 mcg PO Q7D cap 07/17/24 [Rx] Formoterol Fumarate [Perforomist] 20 mcg INHALATION RT-BID ml 07/17/24 [Rx] Furosemide [Lasix] 40 mg PO DAILY tab 07/17/24 [Rx] INSULIN ASPART (NovoLOG) [NovoLOG (formulary)] 0 unit SQ ACHS each 07/17/24 [Rx] Ipratropium-Albuterol Nebulize [Duoneb 0.5 mg-3 mg/3 ml Soln] 3 ml INHALATION RT-Q2H PRN each 07/17/24 [Rx] Ipratropium-Albuterol Nebulize [Duoneb 0.5 mg-3 mg/3 ml Soln] 3 ml INHALATION RT-QID each 07/17/24 [Rx] Nystatin 100,000 Unit/gm Powd [Mycostatin Powder] 1 applic TOPICAL TID PRN each 07/17/24 [Rx] Sennosides-Docusate Sodium [Senokot-S] 1 each PO DAILY tab 07/17/24 [Rx] acetaZOLAMIDE [Diamox] 250 mg PO BID tab 07/17/24 [Rx] bisacodyL [Dulcolax] 10 mg RECTAL HS PRN suppositor 07/17/24 [Rx] busPIRone HCl [Buspar] 10 mg PO BID 30 Days #60 tab 07/17/24 [Rx] predniSONE See Taper PO DIRECTED 12 Days #30 tab 07/17/24 [Rx] Follow up Appointment(s)/Referral(s): Kimberly Molina MD [Primary Care Provider] - 1-2 days Activity/Diet/Wound Care/Special Instructions: Diet: Dysphagia Level 2 -Ground, extra gravy/sauce. Aspiration precautions. 1:1 supervision Bipap at hs 16/6 with 35% FIO2 Activity as tolerated Discharge Disposition: TRANSFER TO SNF/ECF
--- NOTE | 2024-07-17 15:06 | P.PN ---
Subjective Progress Note Date: 07/16/24 Principal diagnosis: Reason for follow-up is pneumonia Patient is a 78-year female with a past medical history significant for hypertension COPD atrial fibrillation, obstructive sleep apnea and recent admission to the hospital April 2024 for COPD exacerbation patient has been brought into the ER by EMS as the patient was noticed to be lethargic and sleepy at home patient was noted to be short of breath, patient did have a CT with evidence of extensive consolidation concerning for pneumonia. On today's evaluation that is 07/16/2024, Patient is afebrile patient is c urrently on 2 L current oxygen and denies having any shortness of breath, the patient denies any chest pain or cough, the patient denies any nausea vomiting did not have any abdominal pain and no diarrhea. Patient white count is down to 12.5, creatinine 1.01 Objective - Vital Signs Vital signs: Vital Signs Temp 97.8 F 07/16/24 08:00 Pulse 80 07/16/24 11:56 Resp 18 07/16/24 08:00 BP 121/70 07/16/24 08:00 Pulse Ox 98 07/16/24 08:00 FiO2 35 07/16/24 03:09 Intake & Output 07/15/24 07/16/24 07/16/24 18:59 06:59 18:59 Intake Total 960 540 180 Output Total 500 400 200 Balance 460 140 -20 Weight 86 kg Intake: Oral 960 540 180 Output: Urine 500 400 200 Other: Voiding Method Diaper Diaper Diaper Incontinent Incontinent Incontinent External Catheter External Catheter External Catheter # Voids 5 # Bowel Movements 2 - Exam GENERAL DESCRIPTION: An elderly female lying in bed in no distress RESPIRATORY SYSTEM: Unlabored breathing , decreased breath sounds at bases HEART: S1 S2 regular rate and rhythm , ABDOMEN: Soft , no tenderness EXTREMITIES: No edema feet - Labs CBC & Chem 7: 07/16/24 06:28 07/17/24 06:05 Labs: Abnormal Lab Results - Last 24 Hours (Table) 07/15/24 07/15/24 07/16/24 Range/Units 16:27 20:25 06:10 WBC (3.8-10.6) k/uL RBC (3.80-5.40) m/uL Neutrophils # (1.3-7.7) k/uL Lymphocytes # (1.0-4.8) k/uL Chloride (98-107) mmol/L Carbon Dioxide (22-30) mmol/L BUN (7-17) mg/dL POC Glucose (mg/dL) 158 H 160 H 111 H (70-110) mg/dL 07/16/24 07/16/24 Range/Units 06:28 06:28 WBC 12.5 H (3.8-10.6) k/uL RBC 3.78 L (3.80-5.40) m/uL Neutrophils # 11.0 H (1.3-7.7) k/uL Lymphocytes # 0.8 L (1.0-4.8) k/uL Chloride 92 L (98-107) mmol/L Carbon Dioxide 43 H* (22-30) mmol/L BUN 31 H (7-17) mg/dL POC Glucose (mg/dL) (70-110) mg/dL Assessment and Plan (1) Pneumonia Status: Acute Code(s): J18.9 - PNEUMONIA, UNSPECIFIED ORGANISM SNOMED Code(s): 318246259 (2) Sepsis Status: Acute Code(s): A41.9 - SEPSIS, UNSPECIFIED ORGANISM SNOMED Code(s): 15749999 (3) Leukocytosis Status: Acute Code(s): D72.829 - ELEVATED WHITE BLOOD CELL COUNT, UNSPECIFIED SNOMED Code(s): 221887710 Plan: 1patient presented to hospital with sepsis in this patient who did have elevated white count tachycardia source is likely pneumonia with evidence of right-sided consolidation question of aspiration/gram-negative as the patient has been in and out of the hospital, gram-positive infection not entirely excluded patient has received adequate antibiotic therapy for underlying pneumonia and Zosyn was discontinued 2-patient blood cultures has been negative, sputum has not been collected 3patient leukocytosis more likely steroid related, as the patient did have a normal CRP as well as procalcitonin, the patient white count is down to 12,000 and the patient will monitor closely off antibiotic therapy Dictation was produced using [employer] dictation software. please excuse any grammatical, word or spelling errors. Time with Patient: Less than 30
--- NOTE | 2024-07-17 15:08 | P.PN ---
Subjective Progress Note Date: 07/17/24 Principal diagnosis: Reason for follow-up is pneumonia Patient is a 78-year female with a past medical history significant for hypertension COPD atrial fibrillation, obstructive sleep apnea and recent admission to the hospital April 2024 for COPD exacerbation patient has been brought into the ER by EMS as the patient was noticed to be lethargic and sleepy at home patient was noted to be short of breath, patient did have a CT with evidence of extensive consolidation concerning for pneumonia. On today's evaluation that is 07/17/2024, patient has been afebrile, patient is breathing comfortably and is currently on 2 L current oxygen patient denies having any significant cough no chest pain shortness of breath, patient denies nausea vomiting or diarrhea and no abdominal pain, feeling better no new symptoms. No CBC was done today creatinine 1.02 Objective - Vital Signs Vital signs: Vital Signs Temp 98.2 F 07/17/24 08:04 Pulse 92 07/17/24 11:58 Resp 20 07/17/24 11:58 BP 109/58 07/17/24 11:58 Pulse Ox 98 07/17/24 11:58 FiO2 35 07/17/24 04:21 Intake & Output 07/16/24 07/17/24 07/17/24 18:59 06:59 18:59 Intake Total 580 420 Output Total 200 800 Balance 380 -800 420 Weight 85.5 kg Intake: IV 40 0.9 @ KVO 40 Oral 540 420 Output: Urine 200 800 Other: Voiding Method Diaper Diaper Diaper Incontinent Incontinent Incontinent External Catheter External Catheter External Catheter # Voids 1 # Bowel Movements 1 - Exam GENERAL DESCRIPTION: An elderly female lying in bed in no distress RESPIRATORY SYSTEM: Unlabored breathing , decreased breath sounds at bases HEART: S1 S2 regular rate and rhythm , ABDOMEN: Soft , no tenderness EXTREMITIES: No edema feet - Labs CBC & Chem 7: 07/16/24 06:28 07/17/24 06:05 Labs: Abnormal Lab Results - Last 24 Hours (Table) 07/16/24 07/16/24 07/17/24 Range/Units 16:09 20:02 06:05 Chloride 92 L (98-107) mmol/L Carbon Dioxide 43 H* (22-30) mmol/L BUN 31 H (7-17) mg/dL POC Glucose (mg/dL) 139 H 208 H (70-110) mg/dL Assessment and Plan (1) Pneumonia Status: Acute Code(s): J18.9 - PNEUMONIA, UNSPECIFIED ORGANISM SNOMED Code(s): 529080543 (2) Sepsis Status: Acute Code(s): A41.9 - SEPSIS, UNSPECIFIED ORGANISM SNOMED Code(s): 36814445 (3) Leukocytosis Status: Acute Code(s): D72.829 - ELEVATED WHITE BLOOD CELL COUNT, UNSPECIFIED SNOMED Code(s): 504248492 Plan: 1patient presented to hospital with sepsis in this patient who did have elevated white count tachycardia source is likely pneumonia with evidence of right-sided consolidation question of aspiration/gram-negative as the patient has been in and out of the hospital, gram-positive infection not entirely excluded patient has received adequate antibiotic therapy for underlying pneumonia and Zosyn was discontinued 2-patient blood cultures has been negative, sputum has not been collected 3patient leukocytosis more likely steroid related, as the patient did have a normal CRP as well as procalcitonin, the patient white count is down to 12,000 as of yesterday no need for antibiotic on discharge Dictation was produced using [employer] dictation software. please excuse any grammatical, word or spelling errors. Time with Patient: Less than 30
--- NOTE | 2024-07-17 15:23 | P.PN ---
Subjective Progress Note Date: 07/17/24 Principal diagnosis: Acute on chronic hypoxic and hypercapnic respiratory failure secondary to COPD exacerbation On today's evaluation of 07/10/2024, the patient is being seen for a follow-up. He is currently on 3 Suboxone by nasal cannula with a pulse ox of 93%. Most recent chest x-ray from 07/07/2024 showed resolving bibasilar atelectasis changes. The patient is calm and comfortable. Profoundly weak and debilitated. The white circles of 19.4 with a hemoglobin 1.7 and a platelet count of 230. BUN 31 with a creatinine 1.1 and a sodium level of 135. The patient is known to have advanced COPD and he has chronic hypoxic respiratory failure. He is also known to have obstructive sleep apnea. He is utilizing a BiPAP pressure of 16 over 6 cm of water with an FiO2 of 35% overnight and oxygen between 2 and 3 L/min nasal cannula in the morning. The patient remains on Lasix 40 mg IV every 24 hours. Remains on DuoNeb nebulized treatments [id number]. No antibiot ic coverage for now. He remains on Lovenox 40 mg subcu for DVT prophylaxis. Blood cultures from this current admission has been negative. He typically uses oxygen at 2 L nasal cannula on outpatient basis. Not compliant to home CPAP therapy. He is arousable and communicating. No new complaints otherwise for now. 07/11/2024, the patient is being seen for a follow-up. No new complaints.The BiP AP overnight and the patient is currently on oxygen at 3 L/min nasal cannula. Remains on the same respiratory medication regimen. The patient remains on DuoNeb, budesonide and Pulmicort nebulized treatments twice a day and the patient is also on IV Solu-Medrol 40 mg every 8 hours. Labs from today shows a white cell count of 20 with a hemoglobin of 12.1 and a platelet count of 195. BUN 35 with a creatinine 1.1 and the patient's renal function is improved and a sodium levels at 139 and serum bicarb is at 38. Remains on Lovenox for DVT prophylaxis. Remains on Lasix 40 mg IV every 24 hours. Remains on Diamox to 50 mg p.o. twice a day to counteract metabolic alkalosis. No other complaints. She is able to sit up in the chair. Overall condition is quite debilitated the patient remains quite weak. A follow-up chest x-ray was done and showed some ongoing issues with cardiomegaly. The patient also has some mild pulm vas congestion. On 07/12/2024, the patient for a follow-up. Patient is calm and comfortable. Has no specific complaints. Tolerating the BiPAP overnight. No chest pain. No shortness of breath. She is still on IV Solu-Medrol and this is going to be transition to prednisone burst taper. The patient remains on DuoNeb treatments [id number]. Patient remains on performance of Pulmicort updrafts. WBC count is 18 with a hemoglobin of 0.8 and a platelet count of 228. No chest pain. No angina. No palpitations. Procalcitonin level is normal. Patient remains on Diamox to 50 mg p.o. daily. The patient is also on Lovenox for DVT prophylaxis 40 mg SQ daily and Lasix 40 mg IV every 12 hours. On 07/13/2024, the patient is being seen for a follow-up. The patient is doing well with no specific complaints or any other significant events overnight. Respiratory status is stable and the patient is on 2 L of oxygen by nasal cannula with a pulse ox of 92%. Labs from today shows a white cell count of 17, hemoglobin 11.5, serum bicarbonate 45 and the patient remains on Diamox. Sodium is at 138, potassium is at 3.1. Patient's BUN is 35 with a creatinine of 1.24. The patient received Lasix 40 mg IV every 24 hours. The patient is also on Diamox to 50 mg p.o. twice a day. Patient is also on a prednisone burst taper. 07/14/2024, the patient is being seen for a follow-up. Resting comfortably in bed. Remains profoundly weak. Unable to maintain or carry her weight with her lower extremities. She needs help for activity. No new complaints. She rem ains on Lasix 40 mg every 24 hours. She remains on Diamox. She is on a prednisone burst taper. She remains on bronchodilators. The white cell count is 18 with a hemoglobin 11.6 and a platelet count of 280. Serum bicarb is at 43, sodium is at 135, BUN 36 with a creatinine of 1.07. Oxygenation remains unchanged and the patient remains on 2 L of O2 nasal cannula with a pulse ox of 96%. Limited cough. No significant sputum production. 07/15/2024, the patient is being seen for a follow-up. Uneventful evening. Calm and comfortable. No new complaints. Resting comfortably in bed. Currently on 2 L of oxygen by nasal cannula. Medications remain unchanged. The patient is currently on Lasix 40 mg IV every 24 hours and the patient remains on Diamox. The patient is on a prednisone burst taper starting with 40 mg. Serum bicarb is 46, white cell count of 15.9 with a hemoglobin of 11.4 and a platelet count of 246. No chest pain. No significant shortness of breath. Profoundly weak and debilitated. Patient was seen today on 07/16/2024, seen for follow-up on her COPD. Patient is waiting for possible placement, in the meantime she is still receiving bronchodilators, diuretics in the form of Lasix and Diamox, still on prednisone burst and taper, remains on bronchodilators for her underlying COPD. Patient feels generally weak, she definitely needs rehab placement. WBC count is 12.5 hemoglobin 11.7 basic metabolic profile is normal bicarb is 43 BUN is 31 creatinine 1.01 Patient was seen today on 07/17/2024, seen for follow-up on her COPD, patient continues to do well, remains on the same bronchodilators remains on prednisone remains on Lasix and Diamox, she is on prednisone burst and taper, doing great. Remains generally weak, discharge planning is in progress, patient will be going to a rehab facility in [facility]. Objective - Vital Signs Vital signs: Vital Signs Temp 98.2 F 07/17/24 08:04 Pulse 92 07/17/24 11:58 Resp 20 07/17/24 11:58 BP 109/58 07/17/24 11:58 Pulse Ox 98 07/17/24 11:58 FiO2 35 07/17/24 04:21 Intake & Output 07/16/24 07/17/24 07/17/24 18:59 06:59 18:59 Intake Total 580 420 Output Total 200 800 Balance 380 -800 420 Weight 85.5 kg Intake: IV 40 0.9 @ KVO 40 Oral 540 420 Output: Urine 200 800 Other: Voiding Method Diaper Diaper Diaper Incontinent Incontinent Incontinent External Catheter External Catheter External Catheter # Voids 1 # Bowel Movements 1 - Exam HYSICAL EXAMINATION: GENERAL: revealed a 78-year-old female in no distress, On 3 L nasal cannula with O2 saturation 98% HEENT: Pupils are round and equally reacting to light. EOMI. No scleral icterus. No conjunctival pallor. Normocephalic, atraumatic. No pharyngeal erythema. No thyromegaly. CARDIOVASCULAR: S1 and S2 present. No murmurs, rubs, or gallops. PULMONARY: Diminished breath sound bilaterally no crackles rhonchi or wheezes ABDOMEN: Soft, nontender, nondistended, normoactive bowel sounds. No palpable organomegaly. MUSCULOSKELETAL: No joint swelling or deformity. EXTREMITIES: No cyanosis, clubbing, or pedal edema. NEUROLOGICAL: Alert and oriented x 3 no gross focal deficit SKIN: No rashes. - Labs CBC & Chem 7: 07/16/24 06:28 07/17/24 06:05 Labs: Abnormal Lab Results - Last 24 Hours (Table) 07/16/24 07/16/24 07/17/24 Range/Units 16:09 20:02 06:05 Chloride 92 L (98-107) mmol/L Carbon Dioxide 43 H* (22-30) mmol/L BUN 31 H (7-17) mg/dL POC Glucose (mg/dL) 139 H 208 H (70-110) mg/dL Assessment and Plan Assessment: Impression: Acute on chronic hypoxemic and hypercapnic respiratory failure, secondary to acute COPD exacerbation and extensive of right sided healthcare associated pneumonia. Acute hypercapnic encephalopathy, resolved Right lung atelectasis, resolved Severe chronic obstructive pulmonary disease Chronic hypoxemic respiratory failure, secondary to above Chronic metabolic alkalosis, currently on Diamox Obstructive sleep apnea, reportedly noncompliant with home CPAP machine History of heart failure, with borderline mildly impaired left ventricular ejection fraction of 45 to 50% Pulmonary hypertension Chronic atrial fibrillation, anticoagulated with Eliquis Hyperlipidemia Hypertension Recommendation: With discharge planning to rehab. Continue bronchodilators Continue prednisone burst and taper this could be done on outpatient basis Continue Lasix and Diamox Continue oxygen Continue BiPAP as needed 16/6/35% Continue incentive spirometry Continue physical therapy and Occupational Therapy Time with Patient: Less than 30
[2024-08-03 10:56] LABS: Albumin CANCELLED g/dL (3.80-4.90); Gamma Globulin CANCELLED g/dL (0.70-1.50)
[2024-08-06 09:18] LABS: Protein, Total CANCELLED g/dL (5.7-8.2)
== END 2024-07-17 14:41 | DRG 871 ==
LOC: EC 12:41 → 2SICU 14:15 → 3SCARD 07-07 12:07
PROVIDERS: ADMIT Internal Medicine; ATTEND Internal Medicine
PROC: 5A09457 Assistance with Respiratory Ventilation, 24-96 Consecutive Hours, Continuous Positive Airway Pressure (ICD-10-PCS; principal; 2024-07-12)
DX: A41.9 Sepsis, unspecified organism (principal); G93.41 Metabolic encephalopathy; J18.9 Pneumonia, unspecified organism; I50.33 Acute on chronic diastolic (congestive) heart failure; J96.21 Acute and chronic respiratory failure with hypoxia; J96.22 Acute and chronic respiratory failure with hypercapnia; N17.0 Acute kidney failure with tubular necrosis; I48.20 Chronic atrial fibrillation, unspecified; J44.0 Chronic obstructive pulmonary disease with (acute) lower respiratory infection; J44.1 Chronic obstructive pulmonary disease with (acute) exacerbation; E87.0 Hyperosmolality and hypernatremia; E87.4 Mixed disorder of acid-base balance; E87.3 Alkalosis; Z66 Do not resuscitate; I11.0 Hypertensive heart disease with heart failure; E78.5 Hyperlipidemia, unspecified; G47.33 Obstructive sleep apnea (adult) (pediatric); E83.52 Hypercalcemia; E87.8 Other disorders of electrolyte and fluid balance, not elsewhere classified; I07.1 Rheumatic tricuspid insufficiency; I25.10 Atherosclerotic heart disease of native coronary artery without angina pectoris; E87.5 Hyperkalemia; E87.6 Hypokalemia; N26.1 Atrophy of kidney (terminal); Y95 Nosocomial condition; I27.21 Secondary pulmonary arterial hypertension; I27.29 Other secondary pulmonary hypertension; T50.2X5A Adverse effect of carbonic-anhydrase inhibitors, benzothiadiazides and other diuretics, initial encounter; Z91.199 Patient's noncompliance with other medical treatment and regimen due to unspecified reason; Z79.899 Other long term (current) drug therapy; Z79.51 Long term (current) use of inhaled steroids; Z79.01 Long term (current) use of anticoagulants; I25.2 Old myocardial infarction
CPT/HCPCS: 36410; 36415; 36600; 70450; 71045; 71260; 76770; 76937; 78070; 80048; 80051; 80053; 81001; 82164; 82306; 82607; 82652; 82805; 83605; 83735; 83880; 83883; 83970; 84145; 84165; 84295; 84484; 85025; 85027; 85610; 85730; 86140; 86334; 86335; 87040; 87324; 87636; 93005; 93306; 94640; 94660; 94760; 96365; 96366; 96367; 96368; 96375; 99291